=== PATIENT | female | born 2000 | race Caucasian/White ===

== ENCOUNTER 2018-09-19 08:47 | Outpatient (RCR) | payer OTHER, SELFPAY ==
--- NOTE | 2018-09-20 08:17 | HP.OTEVAL ---
Patient's Visit Information MADHURI GUZMAN is a 17 year old F, referred to Occupational Therapy by Shan Ambrocio, with a diagnosis of TOS. Date of Evaluation: 09/19/18 Occupational Therapist: Cynthia Coyne, GERSON/Natalie, CHT - Subjective Subjective: This 17 year old female was seen for intial OT eval for compression garments- Pt states with increase in [employer]c training for her track and field she is getting swelling/tingling in her right UE and numbness at times in her hand. pt did have a compression sleeve in the past but it currently does not fit. Pt return to college on Monday and would like to know what she can do at this time to get a compression garment for UE/LE. - Lymphedema (Circumferential Measure) MCP: right 20.5cm left 18.5cm Wrist: right 16.5cm left 15cm Lower forearm: right 23.5cm left 22.5cm Largest forearm: right 30cm left 27.5cm Elbow: right 28cm left 26cm Largest humerus: right 32.5cm left 29.5cm Axcillary: right 36cm left 35cm Lower calf: right 24cm left 21.5cm Largest calf: right 35cm left 29cm Below knee: right 36cm left 33cm Above knee: right 50cm left 49cm Mid-thigh: right 59cm left 57cm Groin: right 67cm left 66cm - Quick DASH-Disab of Arm,Shoulder& Hand Quick DASH Score: 6.6650 - Goals Select approp compression garment w/donning/care/wear by d/c: Yes Voice need to replace compression garment every 4-6mo by dc: Yes - Rehabilitation General Assessment: pt demo with swelling/tingling on right UE/LE since she started her traning for track and field. pt would benefit from custom compression garments but due to limited time pt advised in off the shelf compression sleeve and glove 20-30mmHg. Pt would benefit from custom compression knee length compression shorts as this is not offered as a pre made compression garment. Rehabilitation Potential: Good - Anticipated Interventions Anticipated Interventions: Education re Diagnosis, Education re Skin Care and Precautions, Education re Correct Donning Tech,Care&Wearing Sched Comp Garments - Visit Plan Frequency: 1x/Week Duration: 1 Week TEXT: Thank you for the opportunity to evaluate your patient. For Medicare and Medicare HMO plans, please review the plan of care and approve it. It will need to be FAXED BACK to us at [phone] for Medicare purposes. Please let me know if there are questions or concerns regarding this plan of care. Physician Signature: Date:
--- NOTE | 2019-01-16 15:49 | HP.OT.NRP ---
HP - Discharge Summary - Patient Information MADHURI GUZMAN was seen in my office for initial evaluation on 09/19/18. The following Plan of Care was established for this patient: Initial Frequency: 1x/Week Initial Duration: 1 Week - Anticipated Interventions Anticipated Interventions: Education re Diagnosis, Education re Skin Care and Precautions, Education re Correct Donning Tech,Care&Wearing Sched Comp Garments This patient was last seen in our office 09/19/18. Pertinent comments regarding their Occupational therapy will appear below: Pt seen for OT eval only. pt was able to get compression garments for school sports. pt had no other concerns and is d/c at this time. At this point I will be discontinuing this patient from occupational therapy. I would be happy to see this patient again in the future if found appropriate by the physician. Thank you! Cynthia Coyne, OTR/L, CHT
== END 2018-09-19 19:00 | disposition home or self-care (01) ==
LOC: OT 08:47
PROVIDERS: Family Provider Pediatrics; PCP Pediatrics; Referring Provider Family Medicine; Visit Provider Family Medicine
DX: G54.0 Brachial plexus disorders (principal)
CPT/HCPCS: 97166

== ENCOUNTER → 2018-11-30 12:17 | Outpatient (CLI) | payer OTHER, MEDICAID, SELFPAY ==
--- NOTE | 2018-11-30 12:25 | US_ITS ---
STUDY: RENAL ULTRASOUND - COMPLETE REASON FOR EXAM: Female, 17 years old. Neurogenic bladder TECHNIQUE: Ultrasound evaluation of the kidneys was performed with real-time and static petty-scale imaging. COMPARISON: CT dated 12/14/2013. FINDINGS: RIGHT KIDNEY: Normal location of the right kidney, which is normal in size. The right kidney measures 10.8 cm. There is a normal cortex of the right kidney. There is no right renal mass or cyst. There are no right renal calculi. There is no right hydronephrosis. DISTAL RIGHT URETER: There is non-visualization of the distal right ureter. There is no demonstrated right ureterovesical junction calculus. There is a visualized right ureteral jet. LEFT KIDNEY: Normal location of the left kidney, which is normal in size. The left kidney measures 10.5 cm. There is a normal cortex of the left kidney. There is no left renal mass or cyst. There are no left renal calculi. There is no left hydronephrosis. DISTAL LEFT URETER: There is non-visualization of the distal left ureter. There is no demonstrated left ureterovesical junction calculus. There is a visualized left ureteral jet. AORTA: No evidence of abdominal aortic aneurysm. I.V.C.: The IVC is patent. BLADDER: The urinary bladder demonstrates a normal sonographic appearance. There is a prevoid volume of 400 cc and a postvoid volume of 700 cc. US/Kidney and Bladder IMPRESSION: Normal ultrasound of the kidneys and urinary bladder. Electronically Signed: Manjinder Erinn, at 19:58 EDT Tel , Service support ,
== END ==
PROVIDERS: Family Provider Pediatrics; PCP Pediatrics; Referring Provider Urology; Visit Provider Urology
DX: N31.9 Neuromuscular dysfunction of bladder, unspecified (principal)
CPT/HCPCS: 76770

== ENCOUNTER → 2020-02-13 | Outpatient (CLI) | payer OTHER, MEDICAID, SELFPAY ==
[2014-12-06 22:40] VITALS: BMI 22.3
== END | disposition home or self-care (01) ==
LOC: LABSPEC 16:45
PROVIDERS: PCP Pediatrics; Referring Provider Urology; Visit Provider Urology
DX: N39.0 Urinary tract infection, site not specified (principal); R82.998 Other abnormal findings in urine
CPT/HCPCS: 87086; 87088; 87186

== ENCOUNTER 2021-05-26 15:30 | Outpatient (RCR) | payer OTHER, MEDICAID, SELFPAY ==
--- NOTE | 2021-05-25 15:20 | HP.OTEVAL_ITS ---
Patient's Visit Information MADHURI GUZMAN is a 20 year old F, referred to Occupational Therapy by Dr. Graham Whitehead MD, with a diagnosis of Lymphedema. Date of Evaluation: 05/24/21 Occupational Therapist: Cynthia Coyne, KEOR/Natalie, CHT - Subjective This 20 year old female was seen for OT eval with dx of lymphedema and spina bi fida. pt states she has increased issues with swelling of her left arm. pt states she has not used her compression garments for awhile- states she does use her wheelchair more during school- pt states she recently started swimming for exercise. 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 pt states she enjoys swimming and has been going the last 4 days. pt states she has not watched to see if her circulation is better. - Lymphedema (Circumferential Measure) MCP: right 25cm left 18cm Wrist: right 21cm left 18cm Lower forearm: right 27.5cm left 27cm Largest forearm: right 35cm left 31cm Elbow: right 32cm left 29cm Largest humerus: right 31cm left 28c Axcillary: right 37cm left 35cm Upper Exremity Comments: pt demo a increase in right UE measurements from 2019 Above knee: right 44cm left 46cm Mid-thigh: right 53.5cm left 54cm Groin: right 63cm left 62cm Lower Exremity Comments: pt demo a reduction in right LE circumference from apt. in 2019 - Lower Limb Functional Index Lower Extremity Functional Score: 74 - Quick DASH-Disab of Arm,Shoulder& Hand Quick DASH Score: 20.0000 - Goals Demonstrate a 20% reduction in edema by d/c: Yes Demonstrate adequate knowledge of self-massage by 2nd week: Yes Demonstrate adequate knowledge skin care/prec by 2nd week: Yes Demonstrate adequate knowledge therapeutic exercises by d/c: Yes Select approp compression garment w/donning/care/wear by d/c: Yes Voice need to replace compression garment every 4-6mo by dc: Yes - Rehabilitation General Assessment: pt demo a increase in right UE circumference from prior apt in 2019. Pt demo need for skilled OT services 1-2x week for 3 weeks to ed. pt on dx, and life time mtg of swelling. therapist ed. pt on need of using compression garments and paring with exercise and self manual lymph massage. therapist sent order for 20-30 mmHg compression sleeve and compression glove with fingers included. therapist will ed, pt on self manual lymphedema massage and ed need of compression sleeve to assist with circulation. pt demo understanding and agree to POC. Rehabilitation Potential: Good - Anticipated Interventions Education re Diagnosis, Manual Lymph Drainage, Education re Life-long lymphedema Management, Education re Skin Care and Precautions, Education re Self Massage Techniques, Education re Correct Donning Tech,Care&Wearing Sched Comp Garments, Home Program - Visit Plan Frequency: 1-2x /Week Duration: 3 Weeks TEXT: Thank you for the opportunity to evaluate your patient. For Medicare and Medicare HMO plans, please review the plan of care and approve it. It will need to be FAXED BACK to us at [phone] for Medicare purposes. Please let me know if there are questions or concerns regarding this plan of care. Physician Signature: Date:
--- NOTE | 2021-07-22 13:20 | HP.OT.NRP ---
MADHURI GUZMAN was seen in my office for initial evaluation on 05/24/21. The following Plan of Care was established for this patient: Initial Frequency: 1-2x /Week Initial Duration: 3 Weeks Anticipated Interventions: Education re Diagnosis, Manual Lymph Drainage, Education re Life-long lymphedema Management, Education re Skin Care and Precautions, Education re Self Massage Techniques, Education re Correct Donning Tech,Care&Wearing Sched Comp Garments, Home Program This patient was last seen in our office 05/26/21. Pertinent comments regarding their Occupational therapy will appear below: pt seen for OT eval only- no further apts were scheduled- due to time lapse in services pt d/c. At this point I will be discontinuing this patient from occupational therapy. I would be happy to see this patient again in the future if found appropriate by the physician. Thank you! Cynthia Coyne, OTR/L, CHT
== END 2021-05-26 19:00 | disposition home or self-care (01) ==
LOC: OT 15:30
PROVIDERS: PCP Pediatrics; Referring Provider Pediatrics; Visit Provider Pediatrics
DX: Q05.9 Spina bifida, unspecified (principal); I89.0 Lymphedema, not elsewhere classified
CPT/HCPCS: 97166

== ENCOUNTER → 2022-06-20 | Outpatient (CLI) | payer OTHER, MEDICAID, SELFPAY ==
--- NOTE | 2022-06-20 11:46 | US_ITS ---
STUDY: RENAL ULTRASOUND - COMPLETE REASON FOR EXAM: Female, 21 years old. ACUTE CYSTITIS TECHNIQUE: Ultrasound evaluation of the kidneys was performed with real-time and static petty-scale imaging. COMPARISON: Comparison is made with prior study dated 11/30/2018. FINDINGS: RIGHT KIDNEY: Normal location of the right kidney, which is normal in size. The right kidney measures 11.7 cm x 5 cm x 4.4 cm. There is a normal cortex of the right kidney. The renal cortex measures 1.2 cm. There is no right renal mass or cyst. There are no right renal calculi. There is no right hydronephrosis. DISTAL RIGHT URETER: There is non-visualization of the distal right ureter. There is no demonstrated right ureterovesical junction calculus. There is no demonstrated right ureteral jet. LEFT KIDNEY: Normal location of the left kidney, which is normal in size. The left kidney measures 11.1 cm x 5.4 cm x 4.3 cm. There is a normal cortex of the left kidney. The renal cortex measures 1.0 cm. There is no left renal mass or cyst. There are no left renal calculi. There is no left hydronephrosis. DISTAL LEFT URETER: There is non-visualization of the distal left ureter. There is no demonstrated left ureterovesical junction calculus. There is a visualized left ureteral jet. BLADDER: The distended urinary bladder has a volume of 34 ml. There is a normal wall thickness of the distended urinary bladder. There is no demonstrated mass within the urinary bladder. There are no demonstrated bladder calculi. US/Kidney and Bladder IMPRESSION: Normal ultrasound of the kidneys and urinary bladder. Electronically Signed: Malick Irizarry MD at 15:30 EST ,
== END | disposition home or self-care (01) ==
PROVIDERS: PCP Pediatrics; Visit Provider Urology
DX: N30.01 Acute cystitis with hematuria (principal)
CPT/HCPCS: 76770

== ENCOUNTER → 2024-06-17 | Outpatient (CLI) | payer OTHER, SELFPAY ==
[2024-06-17 10:07] LABS: Erythrocyte Sedimentation Rate 8 mm/hr (0-30)
[2024-06-17 11:06] LABS: CRP 3.84 mg/L (0.0-3.0); LDH 207 U/L (84-246)
[2024-06-19 22:07] LABS: Anti-Centromere B Ab <0.2 AI (0.0-0.9); Anti-Chromatin <0.2 AI (0.0-0.9); Anti-Jo <0.2 AI (0.0-0.9); Anti-Scleroderma-70 AB <0.2 AI (0.0-0.9); Anti-dsDNA Ab <1 IU/mL (0-9); Beef <0.10 kU/L (Class 0); Chocolate <0.10 kU/L (Class 0); Codfish <0.10 kU/L (Class 0); Corn <0.10 kU/L (Class 0); Egg, Whole <0.10 kU/L (Class 0); Milk (Cow) <0.10 kU/L (Class 0); Mussels <0.10 kU/L (Class 0); Peanut <0.10 kU/L (Class 0); Pork <0.10 kU/L (Class 0); RNP Ab <0.2 AI (0.0-0.9); SJOGREN'S Anti-SS-A test < 0.2 AI (0.0-0.9); SJOGREN'S Anti-SS-B test < 0.2 AI (0.0-0.9); Salmon <0.10 kU/L (Class 0); Shrimp <0.10 kU/L (Class 0); Smith Ab <0.2 AI (0.0-0.9); Soybean <0.10 kU/L (Class 0); Tuna <0.10 kU/L (Class 0); Wheat <0.10 kU/L (Class 0)
[2024-06-21 12:08] LABS: ACCA 15 units (0-90); ALCA 5 units (0-60); AMCA 16 units (0-100); Albumin 3.3 g/dL (2.9-4.4); Alpha-1-Globulins 0.3 g/dL (0.0-0.4); Alpha-2-Globulins 0.8 g/dL (0.4-1.0); Angiotensin Convert Enzyme 34 U/L (14-82); Cytoplasmic Ab (C-ANCA) <1:20 titer (Neg:<1:20); Endomysial Antibody IgA Negative (Negative); Gamma Globulin 1.1 g/dL (0.4-1.8); IgG, Quant 963 mg/dL (586-1602); Immunoglobulin A 218 mg/dL (87-352); Immunoglobulin E 19 IU/mL (6-495); Immunoglobulin G, Subclass 1 519 mg/dL (248-810); Immunoglobulin G, Subclass 2 266 mg/dL (130-555); Immunoglobulin G, Subclass 3 45 mg/dL (15-102); Immunoglobulin G, Subclass 4 35 mg/dL (2-96); Immunoglobulin M 153 mg/dL (26-217); PROEL- TOTAL PROTEIN 6.6 g/dL (6.0-8.5); Perinuclear Ab (P-ANCA) <1:20 titer (Neg:<1:20); gASCA 36 units (0-50); t-Transglutaminase IgA <2 U/mL (0-3)
== END | disposition home or self-care (01) ==
LOC: LAB 09:09
PROVIDERS: PCP Student in an Organized Health Care Education/Training Program; Referring Provider Internal Medicine Gastroenterology; Visit Provider Internal Medicine Gastroenterology
DX: K91.30 Postprocedural intestinal obstruction, unspecified as to partial versus complete (principal); Y83.3 Surgical operation with formation of external stoma as the cause of abnormal reaction of the patient, or of later complication, without mention of misadventure at the time of the procedure
CPT/HCPCS: 36415; 82164; 82784; 82785; 82787; 83516; 83615; 84165; 85652; 86003; 86005; 86036; 86037; 86140; 86225; 86235; 86255; 86334; 86671

== ENCOUNTER → 2024-06-22 | Outpatient (CLI) | payer OTHER, SELFPAY ==
--- NOTE | 2024-06-22 08:17 | RAD_ITS ---
STUDY: X-RAY - ABDOMEN/PELVIS REASON FOR EXAM: Female, 23 years old. constipation TECHNIQUE: Single AP view of the abdomen / pelvis. COMPARISON: None. FINDINGS: 24 Sitzmarks markers are seen within the periphery of the abdomen likely scattered throughout the colon. There is an unremarkable bowel gas pattern. The visualized liver, spleen and kidneys are grossly normal in size and morphology. Normal soft tissue structures. Normal visualized osseous structures. RAD/Abdomen Single View IMPRESSION: Sitzmarks are scattered throughout the abdomen likely in the colon. Electronically Signed: Armond Escobedo MD at 12:49 EST ,
== END | disposition home or self-care (01) ==
LOC: RAD 08:17
PROVIDERS: PCP Student in an Organized Health Care Education/Training Program; Referring Provider Internal Medicine Gastroenterology; Visit Provider Internal Medicine Gastroenterology
DX: K91.30 Postprocedural intestinal obstruction, unspecified as to partial versus complete (principal); Y83.3 Surgical operation with formation of external stoma as the cause of abnormal reaction of the patient, or of later complication, without mention of misadventure at the time of the procedure
CPT/HCPCS: 74018

== ENCOUNTER → 2024-06-24 | Outpatient (CLI) | payer OTHER, SELFPAY ==
--- NOTE | 2024-06-24 09:25 | RAD_ITS ---
INDICATION: bloating EXAMINATION/TECHNIQUE: X-RAY - XR Abdomen 1 View COMPARISON: 06/22/2024 FINDINGS: BOWEL GAS PATTERN: There is a moderate amount retained stool throughout the colon. There are 24 Sitzmarks markers.. There has been mild progression since prior examination with the majority of the Sitzmarks markers in the distal descending colon and sigmoid colon. No evidence of small bowel obstruction. No abnormal air collections. FREE AIR: Not assessed on a single supine view. ORGANOMEGALY: Not seen. CALCIFICATIONS: No abnormal calcifications observed. LOWER CHEST: No acute pathology. BONES AND SOFT TISSUES: No acute pathology. RAD/Abdomen Single View IMPRESSION: 1. Sitzmarks markers again noted with in the bowel, with likely transit to the distal descending colon and sigmoid colon. There has been no change or decreased number of markers. 2. No rachel bowel obstruction. Electronically Signed: Armond Stubbs MD at 0:03 EST ,
== END | disposition home or self-care (01) ==
LOC: RAD 09:20
PROVIDERS: PCP Student in an Organized Health Care Education/Training Program; Referring Provider Internal Medicine Gastroenterology; Visit Provider Internal Medicine Gastroenterology
DX: K56.699 Other intestinal obstruction unspecified as to partial versus complete obstruction (principal)
CPT/HCPCS: 74018

== ENCOUNTER → 2024-07-22 | Outpatient (CLI) | payer OTHER, SELFPAY ==
--- NOTE | 2024-07-22 11:51 | NM_ITS ---
CLINICAL: 23-year-old female with history of chronic gastrointestinal complaints. SEMI-SOLID PHASE 99m Tc SULFUR COLLOID GASTRIC EMPTYING STUDY COMPARISON: None available FINDINGS: The patient was administered 1.2 mCi of 99m Tc sulfur colloid mixed with oatmeal and consumed per os. Image acquisitions in the anterior-posterior projections were obtained for 60 minutes. There is prompt visualization of the stomach. There is no gastroesophageal reflux identified. First order kinetics are maintained throughout the duration of the acquisitions. The T ? linear fit was extrapolated to be 86.93 minutes, (Normal: 12-56 minutes). NM/Gastric Emptying Study IMPRESSION: 1. ABNORMAL 99m Tc sulfur colloid semi-solid phase (oatmeal) gastric emptying imaging examination. A. There is delayed semi-solid phase gastric emptying compared to normal controls with demonstrated the first order kinetics throughout all components of the examination. (Guillermina et al, J Nucl Med Tech 38: 186, 2010). Electronically Signed: Armond Yang DO at 9:17 EST ,
== END | disposition home or self-care (01) ==
LOC: NM 11:47
PROVIDERS: PCP Student in an Organized Health Care Education/Training Program; Referring Provider Internal Medicine Gastroenterology; Visit Provider Internal Medicine Gastroenterology
DX: K56.609 Unspecified intestinal obstruction, unspecified as to partial versus complete obstruction (principal)
CPT/HCPCS: 78264; A9541

== ENCOUNTER → 2024-07-29 | Outpatient (CLI) | payer OTHER, SELFPAY ==
--- NOTE | 2024-07-29 10:09 | MRI_ITS ---
STUDY: MR ENTEROGRAPHY WITH CONTRAST REASON FOR EXAM: Female, 23 years old. K56.609 - Unspecified intestinal obstruction, unspecified as t... TECHNIQUE: Multipulse sequence MRI performed with IV contrast according to standard MR enterography protocol following administration of oral contrast for maximal bowel distention. Images were obtained from the dome of the diaphragm to the symphysis pubis. 17 CC IV CLARISCAN was administered intravenously. TECHNICAL QUALITY: Image Quality: Satisfactory Small Bowel Distension: Adequate. COMPARISON: CT of abdomen and pelvis dated December 14, 2013 FINDINGS: FINDINGS: Bowel: Bowel wall thickening: Absent. Skip lesions: None. Vascularity: Normal. Enhancement: Normal. Fistula: None. Abscess: None. Other Findings: The visualized lung bases are unremarkable. The visualized portions of the heart are within normal limits. Normal liver. Normal gallbladder and extrahepatic biliary system. Normal spleen. Normal pancreas. Normal bilateral adrenal glands. Normal right kidney. Normal left kidney. Normal visualized stomach. Mild luminal narrowing in the middle and distal one third regions of the ileum and in the distal jejunum, but without beading or skipped lesions or wall thickening is most likely due to extrinsic adhesions or fibrosis from prior inflammation or prior obstruction or surgical intervention. These findings are not radiographically specific for inflammatory bowel disease but could result and symptoms of irritable bowel syndrome. No small bowel obstruction or fistulous connections or abnormal patulous dilatation. Normal remaining small bowel loops. Normal colon. The appendix is visualized and appears normal. Normal abdominal aorta. Normal inferior vena cava. Normal retroperitoneum. Normal urinary bladder. Normal uterus without evidence of a mass or myometrial hypertrophy. Small amount of endometrial fluid and intermediate signal complex fluid that is consistent with menstrual-related hemorrhage. No endometrial mass or cervical abnormality is seen. Normal bilateral ovaries. Dominant left ovarian follicle noted which is of no clinical significance and does not requiring additional imaging There is a small umbilical hernia containing fat. No aggressive process is seen in the osseous structures.. 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 The herniated sac measures 4.56 x 3.22 cm in diameter. MRI/Enterography Abd/Pel IMPRESSION: 1. Mild luminal narrowing in the middle and distal one third regions of the ileum and in the distal jejunum, but without beading or skipped lesions or wall thickening is most likely due to extrinsic adhesions or fibrosis from prior inflammation or prior obstruction or surgical intervention. These findings are not radiographically specific for inflammatory bowel disease but could result and symptoms of irritable bowel syndrome. No small bowel obstruction or fistulous connections or abnormal patulous dilatation. Normal remaining small bowel loops. Electronically Signed: Gigi Wills MD at 9:34 EST ,
[2024-07-29 11:07] VITALS: BP 127/74; PULSE 89; RESP 16; O2SAT 100; BMI 32.5
[2024-07-29] MEDS: Glucagon 1 MG/ML Syringe IV (12:33)
[2024-07-29] MEDS: 0.9% Saline Lock 10 ML Syringe IV (12:34)
[2024-07-29 13:00] VITALS: BP 130/73; PULSE 102; RESP 18; O2SAT 99
== END | disposition home or self-care (01) ==
LOC: MRI 09:59
PROVIDERS: PCP Student in an Organized Health Care Education/Training Program; Referring Provider Internal Medicine Gastroenterology; Visit Provider Internal Medicine Gastroenterology
DX: K56.609 Unspecified intestinal obstruction, unspecified as to partial versus complete obstruction (principal)
CPT/HCPCS: 74183; 96374; A9575; J1610

== ENCOUNTER → 2024-09-02 | Outpatient (CLI) | payer OTHER, SELFPAY ==
--- NOTE | 2024-09-02 07:50 | NM_ITS ---
PROCEDURE: GASTRIC EMPTYING STUDY - 4 HR REASON FOR EXAM: Gastroparesis. TECHNIQUE: The patient ingested a mixture of 1.1 mCi of sulfur colloid and oatmeal. Gastric emptying study was performed up to 4 hours. RADIOPHARMACEUTICAL: 1.1 mCi of technetium sulfur colloid. COMPARISON: None. FINDINGS: At 4 hours thymic Mrs. At 1 hour, 36% of the radiopharmaceutical exited the stomach. NM/Gastric Emptying Study - 4 HR IMPRESSION: Normal gastric emptying study at 4 hours. Reading Location: [id number]
== END | disposition home or self-care (01) ==
LOC: NM 07:48
PROVIDERS: PCP Student in an Organized Health Care Education/Training Program; Referring Provider Internal Medicine Gastroenterology; Visit Provider Internal Medicine Gastroenterology
DX: K31.84 Gastroparesis (principal)
CPT/HCPCS: 78264; A9541

== ENCOUNTER → 2024-10-14 | Outpatient (CLI) | payer OTHER, SELFPAY ==
--- NOTE | 2024-10-14 09:19 | CT_ITS ---
PROCEDURE: ABDOMEN/PELVIS WITH CONTRAST 10/14/2024 REASON FOR EXAM: IV AND THROUGH THE BANDA STOMA PLEASE One-week history of bloody stool. History of a stoma. History of spina bifida. TECHNIQUE: Abdomen and pelvis CT with intravenous contrast. Coronal and Sagittal reconstruction series were provided. PATIENT PREPARATION: Per protocol ORAL CONTRAST TYPE: A mixture of saline and Gastrografin into the stoma. CONTRAST: Isovue-300 VOLUME: 100 mL One or more dose reduction techniques were used (e.g., Automated exposure control, adjustment of the mA and/or kV according to patient size, use of iterative reconstruction technique. RADIATION DOSE SUMMARY: CTDlvol: 14.7 mGy DLP: 940 mGycm COMPARISON: None FINDINGS: Lung bases: Unremarkable Liver: Normal size. No mass. Gallbladder: Unremarkable Spleen: Normal size. Pancreas: Normal size without evidence of mass surrounding inflammation or ductal dilation. Adrenals: Unremarkable Kidneys: Unremarkable Bladder: Unremarkable Reproductive Organs: Normal uterine size and contour. Ovaries are unremarkable. Bowel: Injected contrast is seen in the right hemicolon. A catheter is seen entering the umbilicus with termination into the right hemicolon. Appendix: The appendix is not identified. There is no inflammatory process identified in the right lower quadrant to suggest appendicitis. Lymph nodes: No suspicious lymph node enlargement. Vasculature: The abdominal aorta and IVC are normal. Peritoneum / Retroperitoneum: Unremarkable Bones: Spondylolysis of the pars interarticularis of the L5 vertebrae. CT/Abdomen/Pelvis WITH Contrast IMPRESSION: No acute abnormality is seen. Reading Location: [facility]
--- NOTE | 2024-10-14 11:45 | NURSING ---
Pt's Mendoza Stoma injected with CT contrast. Pt brought all equipment with her for the study. All amounts and methods of injection were discussed by CT staff with Dr. Juárez. Pt tolerated study well.
== END | disposition home or self-care (01) ==
LOC: CT 09:18
PROVIDERS: PCP Student in an Organized Health Care Education/Training Program; Referring Provider Internal Medicine Gastroenterology; Visit Provider Internal Medicine Gastroenterology
DX: R10.9 Unspecified abdominal pain (principal)
CPT/HCPCS: 74177; Q9967

== ENCOUNTER → 2024-12-25 | Outpatient (CLI) | payer OTHER, SELFPAY ==
--- NOTE | 2024-12-25 13:51 | RAD_ITS ---
PROCEDURE: ABDOMEN SINGLE VIEW 12/25/2024 REASON FOR EXAM: CONSTIAPTION, POSSIBLE OBSTRUCTION TECHNIQUE: ABDOMEN SINGLE VIEW COMPARISON: None FINDINGS: No bowel obstruction or ileus. Moderate stool burden which may reflect constipation. No large pneumoperitoneum. No acute soft tissue abnormalities. No acute fracture or dislocations. No radiographic foreign body. RAD/Abdomen Single View IMPRESSION: No bowel obstruction or ileus. Moderate stool burden which may reflect constip ation. Reading Location: [id number]
== END | disposition home or self-care (01) ==
LOC: RAD 13:50
PROVIDERS: PCP Student in an Organized Health Care Education/Training Program; Referring Provider Internal Medicine Gastroenterology; Visit Provider Internal Medicine Gastroenterology
DX: K59.00 Constipation, unspecified (principal)
CPT/HCPCS: 74018

== ENCOUNTER 2025-02-07 02:18 | Emergency (ER) | payer OTHER, SELFPAY ==
[2025-02-07 02:19] VITALS: BP 129/75; PULSE 104; RESP 16; TEMP 36.4; O2SAT 98; BMI 31.8
--- NOTE | 2025-02-07 02:30 | EDS_ITS ---
HPI History of Present Illness Chief Complaint: Abd Pain Narrative Narrative: Patient is a 24-year-old female with a past medical history of spina bifida, Chiari malformation, gastroparesis, constipation scheduled for ileostomy coming up soon secondary to issues with having bowel movements who presents to the emergency department with a chief complaint of abdominal pain. Patient states that for the past few days she notes that she has had abdominal pain in her right upper quadrant specifically after she eats. States that this has been keeping her awake at night she could not take it anymore therefore she came here for further evaluation management. Patient states that 2 years ago she had a HIDA scan and noted that this was normal at that point in time. [facility] Medical History Chiari malformation Spina bifida Home Medications ?Medication ?Instructions ?Recorded ?Last Taken ?Type lactobacillus combination no.4 3 3,000 mmu cells PO QD AY 06/17/24 Unknown History billion cell capsule (Probiotic) naproxen sodium 220 mg tablet 220 mg PO BID PRN pain 1 08/18/23 Unknown History (Aleve) drospirenone 3 mg-ethinyl 1 tab PO DAILY 07/29/24 Unkn own History estradiol 0.02 mg tablet metformin 500 mg tablet 500 mg PO DAILY 07/29/24 Unk nown History amitriptyline 10 mg tablet 10 mg PO QHS #30 tabs 12/03 Unknown Rx Allergy/AdvReac Type Severity Reaction Status Date / Time latex Allergy Other Verified 02/07/25 02:47 Social History Smoking Status: Never smoker ROS ROS ED ROS Narrative Constitutional: Denies any fevers, chills, headaches Cardiovascular: Denies chest pain or palpitations Respiratory: Denies coughing wheezing shortness of breath Abdomen: Complains of abdominal pain as noted above as well as nausea vomiting : Denies any urinary symptoms Neurological: Denies any numbness, weakness, tingling Musculoskeletal: Denies back pain Skin: Denies any rashes or lesions EXAM Physical Exam Narrative Exam Narrative: General: Patient lying in bed rest comfortably did not appear to be in acute distress Head: Atraumatic, normocephalic Eyes: PERRL bilaterally, EOMI bilaterally, no conjunctival injection noted Neck: Soft, supple, trachea midline Cardiovascular: Patient tachycardic with regular rhythm Respiratory: Clear to auscultation bilaterally Abdomen: Patient has positive Morgan sign with tenderness palpation the right upper quadrant no rebound or guarding on exam, bowel sounds present x 4 Extremities: +5/5 strength noted in the bilateral upper extremities, patient states that she is paralyzed from the waist down from her spina bifida Neurological: Patient follow commands as she was at [facility] year is 2024 Skin: Warm, dry, intact no rashes or lesions noted Const Vital Signs: 02/07/25 02:19 Temperature 97.6 F L Temperature Source Oral Pulse Rate 104 H Respiratory Rate 16 Blood Pressure 129/75 H Blood Pressure Mean 93 Pulse Ox 98 Oxygen Delivery Method Room Air MDM MDM MDM Narrative Medical decision making narrative: Patient is a 24-year-old female who presented to the emergency department chief complaint of right upper quadrant abdominal pain. On the differential diagnose includes but not limited to pancreatitis, , cholecystitis, bowel obstruction. Once the workup is obtained reviewed she will be reevaluated. Patient got IV fluids morphine and Zofran. Patient CBC reviewed and showed a white blood count of 12,000, hemoglobin 12.2, platelet count of 427. Patient sodium is 130, potassium normal 3.8, creatinine was 0.57. Patient's AST and ALT were 13 and 9 respectively total bilirubin normal at 0.21. Patient's lipase normal at 37, test negative. Patient CT abdomen pelvis with IV contrast was reviewed and showed no acute abdominal or pelvic findings. On reevaluation of the patient she is feeling better she would like to go home at this point time. Patient was advised to call her surgeon at [facility] and notified them that they were here in the emergency department and have a follow-up appointment with them before her surgery scheduled in 2 weeks. They are advised return with worsening symptoms or concerns. They are agreeable plan all question concerns answered she was discharged home in stable condition. Lab Data Labs: Laboratory Results - last 24 hr 02/07/25 02:29 WBC 12.6 H RBC 4.46 Hgb 12.2 Hct 37.9 MCV 85.0 MCH 27.4 MCHC 32.2 RDW Std Deviation 41.2 RDW Coeff of Jorge Luis 13.4 Plt Count 427 MPV 9.8 Immature Gran % (Auto) 0.500 Neut % (Auto) 60.0 Lymph % (Auto) 30.3 [place] % (Auto) 4.4 Eos % (Auto) 4.1 Baso % (Auto) 0.7 Absolute Neuts (auto) 7.5 Absolute Lymphs (auto) 3.81 Nucleated RBC % 0 Sodium 138 Potassium 3.8 Chloride 104 Carbon Dioxide 22.9 Anion Gap 11 BUN 14 Creatinine 0.57 L Estim Creat Clear Calc 157.11 Est GFR (MDRD) Non-Af 129 BUN/Creatinine Ratio 25.3 H Glucose 130 H Calcium 9.8 Total Bilirubin 0.21 AST 13 ALT 9 Alkaline Phosphatase 72 Total Protein 7.1 Albumin 4.2 Globulin 2.9 Albumin/Globulin Ratio 1.4 Lipase 37 Serum , Qual NEGATIVE Radiography Diagnostic Testing: Clinical Impression(s) from Imaging Studies Abdomen/Pelvis CT 02/07/25 02:30 IMPRESSION: No acute abdominal or pelvic findings. Reading Location: [place] [id number] Discharge Plan Triage Chief Complaint: Abd Pain ED Provider: Alex Rodriguez Dx/Rx/DC Orders Clinical Impression: Abdominal pain, Spina bifida, Chiari malformation Prescriptions: No Action naproxen sodium [Aleve] 220 mg tablet 220 mg PO BID PRN (Reason: pain) Probiotic 3 billion cell capsule 3,000 mmu cells PO QDAY Rx Instructions: administer with a meal metformin 500 mg tablet 500 mg PO DAILY drospirenone-ethinyl estradiol 3-0.02 mg tablet 1 tab PO DAILY amitriptyline 10 mg tablet 10 mg PO QHS Qty: 30 1RF Primary Care Provider: Juan Manuel Antonio Referrals: Juan Manuel Antonio DO [Primary Care Provider] - Activity Restrictions/Additional Instructions: Your CT did not show evidence of an acute gallbladder infection. Your blood work did not show any acute abnormalities. Follow-up with your surgeon as we discussed and return with worsening symptoms or any other concerns. Print Language: Albanian Disposition Disposition: Home, Self Care
--- NOTE | 2025-02-07 02:30 | CT_ITS ---
PROCEDURE: ABDOMEN/PELVIS W IV CONT ONLY 02/07/2025 REASON FOR EXAM: RUQ PAIN TECHNIQUE: ABDOMEN/PELVIS W IV CONT ONLY Coronal and Sagittal reconstruction series were provided. CONTRAST: Isovue 370 VOLUME: 100 mL One or more dose reduction techniques were used (e.g., Automated exposure control, adjustment of the mA and/or kV according to patient size, use of iterative reconstruction technique. RADIATION DOSE SUMMARY: CTDlvol: 30 mGy DLP: 1069 mGycm COMPARISON: 10/14/2024 FINDINGS: Minimal atelectasis. Normal heart size. Tiny liver cyst. Normal gallbladder, pancreas,, adrenal glands, kidneys. No hydronephrosis or ureteral stone. Normal bladder. Normal uterus and ovaries. No retroperitoneal or pelvic adenopathy. No free air. Nondistended bowel. Status post appendectomy. There appears to have been a fistula creation, between the terminal ileum and the umbilicus, possibly using the appendix. This requires clinical correlation. No acute large bowel findings. Mild scoliosis. Lumbosacral junction spina bifida with 4 x [address]/Abdomen/Pelvis W IV Cont ONLY IMPRESSION: No acute abdominal or pelvic findings. Reading Location: [place] [address]
[2025-02-07 02:35] LABS: Hematocrit 37.9 % (37-47); Hemoglobin 12.2 g/dL (12.0-15.0); Immature Granulocytes Count 0.060 X10^3/uL (0.0-0.0); Mean Corp Hgb Conc 32.2 g/dL (32-36); Mean Corpuscular Volume 85.0 fL (81-99); Mean Platelet Vol. 9.8 fl (6.2-12.0); NRBC Flagged by Analyzer 0 % (0-5); Platelet Count 427 K/mm3 (150-450); RBC Distribution Width CV 13.4 % (11.6-14.6); RBC Distribution Width SD 41.2 fl (35.1-43.9); Red Blood Count 4.46 M/mm3 (4.2-5.4); White Blood Count 12.6 K/mm3 (4.4-11.0)
[2025-02-07] MEDS: 0.9% Normal Saline (1000mL) 1,000 ML 999 ML IV (02:43)
[2025-02-07 02:45] LABS: Internal QC Validated? YES +Cl - CLEAR BKGD; Pregnancy, Serum, hCG Quali. NEGATIVE Negative; Record Kit Lot#, Serum Preg. 0000962302
--- OUTSIDE RECORDS SUMMARY | 2025-02-07 02:49 | XMS RPT_ITS | CCD ---
Author Organization [facility]ini[facility] Care Team Providers Care Fryer Operator Name Role Phone SEAN SINGER Unavailable Unavailable SEAN SINGER Unavailable Unavailable GRAHAM WHITEHEAD Unavailable Unavailable SEAN SINGER Unavailable Unavailable SEAN SINGER Unavailable Unavailable GRAHAM WHITEHEAD Unavailable Unavailable Isaac Lara Attending Unavailabl Graham Senior Referring Unavailable Graham Whitehead Primary Care Unavailable Isaac Thurston Unavailable Unavailable Graham Whitehead Unavailable Unavailable Graham Whitehead MD Primary Care Provider Graham Whitehead MD Primary Care Provider Graham Whitehead MD Primary Care Provider Graham Whitehead MD Primary Care Provider Juan Manuel Antonio DO Primary Care Provider Graham Whitehead MD Primary Care Provider Provider Pranav SOMMER Unavailable Unavailable Curtis RN CLINICAL.Caitlin ESCOBEDO Unavailable [facility] RN CLINICAL.Jill ESCOBEDO Unavailable Dr. Colton Juárez DO Attending Provider Dr. Juan Manuel Antonio DO Primary Care Provider [phone] Dr. Juan Manuel Antonio DO Referring Provider Dr. Colton Juárez DO Referring Provider Ever RN CLINICAL.Caitlin ESCOBEDO Unavailable JUAN MANUEL ANTONIO Primary Care Unavailable JUAN MANUEL ANTONIO DO Primary Care Physician Dr. Juan Manuel Antonio DO Primary Care Provider [phone] Dr. Colton Juárez DO Attending Provider Friend DO, Dr. Pak Referring Provider Paco LOPEZ, Dr. Zambrano Referring Provider [phone] OWOC DO, DR BEVERLY Estrada Attending Unavailabl e ANTONIO DO, JUAN MANUEL Primary Care Unavailable Antonio , Dr. Zambrano Primary Care Provider Friend DO, Dr. Pak Attending Provider Friend DO, Dr. Pak Referring Provider Haile RN CLINICAL.SIGNAL INSPECTOR, Velma Barrientos Unavailable Antonio, Juan Manuel Primary Care Unavailable Friend, Colton Attending Unavailable Friend, Colton Referring Unavailable Friend, Colton Attending Unavailable Antonio, Juan Manuel Primary Care Unavailable Friend, Colton Referring Unavailable Friend, Colton Attending Unavailable Antonio, Juan Manuel Primary Care Unavailable Friend, Colton Referring Unavailable Antonio, Juan Manuel Primary Care Unavailable Friend, Colton Referring Unavailable Friend, Colton Attending Unavailable Friend, Colton Referring Unavailable Antonio, Juan Manuel Primary Care Unavailable Friend, Colton Attending Unavailable Friend, Colton Attending Unavailable Antonio, Juan Manuel Primary Care Unavailable Friend, Colton Referring Unavailable Friend, Colton Attending Unavailable Antonio, Juan Manuel Primary Care Unavailable Friend, Colton Referring Unavailable Antonio, Juan Manuel Primary Care Unavailable Antonio, Juan Manuel Referring Unavailable Friend, Colton Attending Unavailable Friend, Colton Attending Unavailable Antonio, Juan Manuel Primary Care Unavailable Antonio, Juan Manuel Referring Unavailable Friend, Colton Attending Unavailable Antonio, Juan Manuel Primary Care Unavailable Antonio, Juan Manuel Referring Unavailable Friend, Colton Attending Unavailable Antonio, Juan Manuel Primary Care Unavailable Friend, Colton Referring Unavailable SELF Referring Unavailable ANTONIO, JUAN MANUEL L Primary Care Unavailable NORA FLOYD Attending Unavailable SELF Referring Unavailable ANTONIO, JUAN MANUEL L Primary Care Unavailable STALIN RODRIGUEZ Attending Unavailab le ANTONIO, JUAN MANUEL L Primary Care Unavailable ANTONIO, JUAN MANUEL L Referring Unavailable ANTONIO, JUAN MANUEL L Primary Care Unavailable SELF Referring Unavailable ANTONIO, JUAN MANUEL L Primary Care Unavailable MYAH ARGUETA Attending Unavailable ANTONIO, JUAN MANUEL L Primary Care Unavailable AIDAN BAINS JR Attending Unavailable ANTONIO, JUAN MANUEL L Primary Care Unavailable AIDAN BAINS JR Attending Unavailable SELF Referring Unavailable ANTONIO, JUAN MANUEL L Primary Care Unavailable ALAN FAIRCHILD Attending Unavailable CHRISTEN GEE Referring Unavailable ANTONIO, JUAN MANUEL L Primary Care Unavailable CHRISTEN GEE Referring Unavailable ANTONIO, JUAN MANUEL L Primary Care Unavailable ANTONIO, JUAN MANUEL L Primary Care Unavailable AIDAN BAINS JR Attending Unavailable SELF Referring Unavailable ANTONIO, JUAN MANUEL L Primary Care Unavailable TERA OLIVIER Attending Unavailable ANTONIO, JUAN MANUEL L Primary Care Unavailable CHRISTEN GEE Referring Unavailable ANTONIO, JUAN MANUEL L Primary Care Unavailable ANTONIO, JUAN MANUEL L Attending Unavailable ANTONIO, JUAN MANUEL L Primary Care Unavailable ANTONIO, JUAN MANUEL L Referring Unavailable ANTONIO, JUAN MANUEL L Primary Care Unavailable ANTONIO, JUAN MANUEL L Primary Care Unavailable CAITLIN CURTIS Referring Unavailabl e ANTONIO, JUAN MANUEL L Primary Care Unavailable ANTONIO, JUAN MANUEL L Primary Care Unavailable ANTONIO, JUAN MANUEL L Primary Care Unavailable CAITLIN CURTIS Attending Unavailabl e ANTONIO, JUAN MANUEL L Primary Care Unavailable EARLINE TAY Referring Unavailable ANTONIO, JUAN MANUEL L Primary Care Unavailable ANTONIO, JUAN MANUEL L Primary Care Unavailable ARMIDA ALAS Attending Unavailable ANTONIO, JUAN MANUEL L Primary Care Unavailable LUIS ENRIQUE CROSS Attending Unavailable ANTONIO, JUAN MANUEL L Primary Care Unavailable ARMIDA ALAS Attending Unavailable ANTONIO, JUAN MANUEL L Primary Care Unavailable CAITLIN CURTIS Attending Unavailabl e ANTONIO, JUAN MANUEL Natalie Primary Care Unavailable ALECIA GALLEGOS Attending Unavailable ANTONIO, JUAN MANUEL L Primary Care Unavailable ANTONIO, JUAN MANUEL L Primary Care Unavailable CAITLIN CURTIS Referring Unavailabl e CAITLIN CURTIS Attending Unavailabl e ANTONIO, JUAN MANUEL Natalie Primary Care Unavailable CAITLIN CURTIS Attending Unavailabl e ANTONIO, JUAN MANUEL L Primary Care Unavailable ANTONIO, JUAN MANUEL L Attending Unavailable ANTONIO, JUAN MANUEL L Primary Care Unavailable ANTONIO, JUAN MANUEL L Referring Unavailable ANTONIO, JUAN MANUEL L Primary Care Unavailable ANTONIO, JUAN MANUEL L Referring Unavailable ANTONIO, JUAN MANUEL L Primary Care Unavailable ANTONIO, JUAN MANUEL L Primary Care Unavailable CAITLIN CURTIS Attending Unavailabl e ANTONIO, JUAN MANUEL L Primary Care Unavailable ALECIA GALLEGOS Referring Unavailable JUAN MANUEL ANTONIO Primary Care Unavailable CHRISTEN GEE Attending Unavailable JUAN MANUEL ANTONIO Primary Care Unavailable Allergies Allergy Classification Reported Allergen(s) Allergy Type Date of Onset Reaction(s) Facility Banana Extract (3 sources) Banana Extract Drug Allergy 1 Unknown [facility] Latex (3 sources) Latex Substance Allergy 3 Unknown [facility] (20 sources) Latex; Translations: [LATEX] Propensity to adverse reactions to drug (disorder) 3 Unknown [facility] [place] Repository (20 sources) Banana Extract; Translations: [BANANA] Drug Allergy 1 Unknown [facility] Medications Current Medications Medication Drug Class(es) Dates Sig (Normalized) Sig (Original) acetaminophen 325 mg / HYDROcodone bitartrate 5 mg oral tablet (1 source) Opioid Agonist Start: 10-09-2024 End: 10-11-2024 take 1 tablet by mouth every six hours as needed for pain [place] 325- 5 mg oral tablet Dose = 1 tab(s), Oral, q6h, PRN for pain, X 2 day(s), # 5 tab(s), 0 Refill(s), Abdominal pain, 81.8 Start Date: 10/09/24 Stop Date: 10/11/24 Status: Ordered Quantity: 5.0 Unit: tab(s) Repeat number: 1 Indications: Unspecified abdominal pain; amitriptyline hydrochloride 10 mg oral tablet (20 sources) Tricyclic Antidepressant Start: 10-08-2024 End: 12-03-2024 take 1 tablet by mouth once daily at bedtime amitriptyline (ELAVIL) 10 mg tablet Take 10 mg by mouth daily at bedtime. 10/08/2024 Active amoxicillin 875 mg / clavulanate 125 mg oral tablet (6 sources) Penicillin-class Antibacterial Start: 06-19-2024 End: 06-29-2024 take 1 tablet by mouth twice daily amoxicillin-clavul anate potassium (AUGMENTIN) 875-125 mg per tablet Take 1 tablet by mouth two times a day for 10 days. 20 tablet 06/19/2024 06/29/2024 Active Start: 06-17-2024 End: 06-27-2024 take 10 mL by mouth twice daily amoxicillin-clavulanic acid (AUGMENTIN) 250-62.5 mg/5 mL suspension Indications: Subacute cough , SOB (shortness of breath) , Pleuritic pain Take 10 mL by mouth two times a day for 10 days. 200 mL 06/17/2024 06/19/2024 Discontinued Start: 06-27-2022 End: 07-04-2022 take 1 tablet by mouth twice daily amoxicillin-clavulanic acid (AUGMENTIN) 875-125 mg per tablet Indications: Acute otitis media, left Take 1 tablet by mouth twice daily for 7 days. 14 tablet 0 06/27/2022 07/04/2022 Active Comment on above: Take 1 tablet by sushant th twice daily for 7 days. ascorbic acid 500 mg oral capsule (20 sources) Vitamin C Start: 06-17-2024 Ascorbic Acid (Vitamin C) 500 mg capsule Active mg PO June 17, 2024 1:00am take 1 tablet by mouth once victor manuel y Ascorbic Acid 1,000 mg tablet Take 1 tablet by mouth once daily. Active B.animalis,bifid,infantis,lo ng (PROBIOTIC 4X ORAL) (20 sources) take 1 capsule by mouth once daily B.animalis,bifid,infantis,long (PROBIOTIC 4X ORAL) Take 1 capsule by mouth once daily. Active take 1 capsule by mo uth once daily B.animalis,bifid,infantis,long (PROBIOTI C 4X ORAL) Take 1 capsule by mouth once daily. 0 Suspended take 1 capsule by mo uth once daily B.animalis,bifid,infantis,long (PROBIOTI C 4X ORAL) Take 1 capsule by mouth once daily. 0 Active Catheter (FEMALE CATHETER) 14 Fr misc (20 sources) Start: 12-19-2023 Catheter (FEMALE CATHETER) 14 Fr misc Indications: Spina bifida of lumbar region without hydrocephalus (HCC) , Cauda equina syndrome with neurogenic bladder (HCC) , Chiari malformation type I (HCC) , S/P brain surgery , Neurogenic bladder 14 [place], 16 inch female straight tip intermittent catheter, to use q6 hrs prn urinary retention 100 Each 1 12/19/2023 Active cefdinir 300 mg oral capsule (1 source) Cephalosporin Antibacterial Start: 06-30-2024 End: 07-07-2024 take 1 capsule by mouth twice daily cefdinir (OMNICEF) 300 mg capsule Indications: Acute otitis media, right Take 1 capsule by mouth two times a day for 7 days. 14 capsule 06/30/2024 07/07/2024 Active cephalexin 500 mg oral capsule (20 sources) Cephalosporin Antibacterial Start: 09-27-2024 End: 10-04-2024 take 1 capsule by mouth four times daily cephALEXin (KEFLEX) 500 mg capsule Indications: Recurrent UTI (urinary tract infection) Take 1 capsule by mouth four times daily for 7 days. 28 capsule 09/27/2024 10/02/2024 Discontinued Start: 08-21-2024 End: 08-31-2024 take 1 capsule by mouth four times daily cephALEXin (KEFLEX) 500 mg capsule Indications: Cellulitis of toe of left foot Take 1 capsule by mouth four times daily for 10 days. 40 capsule 08/21/2024 08/31/2024 Active Start: 07-29-2024 End: 08-08-2024 take 1 capsule by mouth four times daily cephALEXin (KEFLEX) 500 mg capsule Indications: Cellulitis of toe of left foot Take 1 capsule by mouth four times daily for 10 days. 40 capsule 07/29/2024 08/08/2024 Active Start: 07-29-2024 End: 09-16-2024 take 1 capsule by mouth twice daily Cephalexin 500 mg capsule Discontinued 500 mg PO TWICE A DAY July 29, 2024 1:00am September 16, 2024 8:35am Start: 12-07-2023 End: 12-14-2023 take 1 capsule by mouth twice daily cephALEXin (KEFLEX) 500 mg capsule Take 1 capsule by mouth two times a day for 7 days. 14 capsule 0 12/07/2023 12/14/2023 Active Start: 06-19-2018 End: 02-06-2025 take 1 capsule by mouth three times daily cephALEXin (KEFLEX) 500 mg capsule Indications: Urinary frequency Take 1 capsule by mouth three times a day for 7 days. 21 capsule 01/30/2025 02/06/2025 Active Start: 06-19-2018 take 1 capsule by mo ut twice daily Cephalexin 500 MG Oral Capsule Take 1 capsule twice daily Quantity: 14 Refills: 5 Isaac Thurston MD Start : 19-Jun-2018 Active cetirizine hydrochloride 10 mg oral tablet (1 source) Histamine-1 Receptor Antagonist Start: 12-28-2024 End: 01-11-2025 take 1 tablet by mouth once daily cetirizine (ZYRTEC) 10 mg tablet Indications: Rash Take 1 tablet by mouth once daily for 14 days. 14 tablet 12/28/2024 01/11/2025 Active codeine phosphate 2 mg/ml / guaiFENesin 20 mg/ml oral solution (4 sources) Opioid Agonist Start: 06-17-2024 End: 06-25-2024 take 5 mL by mouth three times daily as needed codeine-guaiFENesi n (GUAIFENESIN AC) 10-100 mg/5 mL syrup Indications: Subacute cough , SOB (shortness of breath) , Pleuritic pain Take 5 mL by mouth three times a day as needed for up to 8 days. 118 mL 06/17/2024 06/25/2024 Active docusate sodium 50 mg / sennosides, penitentiary 8.6 mg oral tablet (17 sources) Start: 12-19-2023 End: 01-26-2024 take 1-2 tablets by mouth twice daily senna-docusate (SENNA-S) 8.6-50 mg per tablet Take 1-2 tablets by mouth two times a day. 26 tablet 0 12/19/2023 01/26/2024 Discontinued doxycycline hyclate 100 mg oral tablet (5 sources) Tetracycline-class Drug Start: 05-29-2024 End: 06-05-2024 take 1 tablet by mouth twice daily doxycycline (VIBRA-TABS) 100 mg tablet Indications: Lower resp. tract infection Take 1 tablet by mouth two times a day for 5 days. 10 tablet 05/31/2024 06/05/2024 Active Drospirenone-Ethinyl Estradiol (20 sources) Progestin, Estrogen Start: 07-29-2024 Drospirenone-Ethin yl Estradiol 3-0.02 mg tablet Active 1 {tbl} PO DAILY July 29, 2024 1:00am Start: 07-15-2024 take 1 tablet by sushant th once daily Drospirenone-Ethinyl Estradiol (PHILIP, 28,) 3-0.02 mg per tablet Indications: Dysmenorrhea Take 1 tablet by mouth once daily. Ok to skip placebo week and start on new pack of pills 112 tablet 3 07/15/2024 Active Inhalational Spacing Device (1 source) Start: 05-29-2024 End: 05-29-2024 Inhalational Spacing Device 1 Device one time only for 1 dose. 1 Each 05/29/2024 05/29/2024 Active iv contrast (will be provided with radiology test) (3 sources) Start: 06-17-2024 End: 06-18-2024 iv contrast (will be provided with radiology test) Indications: Subacute cough , SOB (shortness of breath) , Pleuritic pain CT Chest W -Inject, intravenously, once for 1 dose.No IV access, insert saline lock prior to the beginning of sedation, infusion, injection of imaging exam. Discontinue saline lock post exam. If Pt. has a central line or IVAD, may access for administration according to line specific nursing protocol. Once exam is complete flush line and de-access according to line specific nursing protocol in the CT contrast administration guidelines link. 1 Each 06/17/2024 06/18/2024 Active Lactobacillus Combination No.4 (Probiotic) 3 billion cell capsule (4 sources) Start: 06-17-2024 take 3 capsules by mouth once daily Lactobacillus Combination No.4 (Probiotic) 3 billion cell capsule Active 3000 NMA PO daily June 17, 2024 1:00am administer with a meal metFORMIN hydrochloride 500 mg oral tablet (20 sources) Biguanide Start: 07-15-2024 take 33-33.9 tablets by mouth once daily metFORMIN (GLUCOPHAGE) 500 mg tablet Indications: Class 1 obesity with body mass index (BMI) of 33.0 to 33.9 in adult, unspecified obesity type, unspecified whether serious comorbidity present Take 1 tablet by mouth daily with dinner. 90 tablet 1 07/15/2024 Active methenamine hippurate 1000 mg oral tablet (20 sources) Start: 10-21-2024 take 1 tablet by mouth twice daily Methenamine Hippurate (HIPREX) 1 gram tablet Take 1 tablet by mouth two times a day. 60 tablet 5 10/21/2024 Active methocarbamol 750 mg oral tablet (17 sources) Muscle Relaxant Start: 12-19-2023 End: 01-26-2024 take 1 tablet by mouth every eight hours as needed methocarbamol (ROBAXIN) 750 mg tablet Take 1 tablet by mouth every 8 hours as needed for muscle spasms 60 tablet 0 12/19/2023 01/26/2024 Discontinued methylPREDNISolone (5 sources) Corticosteroid Start: 12-28-2024 End: 01-03-2025 methylPREDNISolone (MEDROL, GITA,) 4 mg Dose-Pack Take as instructed per package. 21 tablet 12/28/2024 01/03/2025 Active Start: 06-17-2024 End: 06-23-2024 methylPREDNISolone (MEDROL, GITA,) 4 mg Dose-Pack Indications: Subacute cough , SOB (shortness of breath) , Pleuritic pain Follow dosing instructions, take with food. 21 tablet 06/17/2024 06/23/2024 Active mupirocin 0.02 mg/mg topical ointment (5 sources) RNA Synthetase Inhibitor Antibacterial Start: 12-10-2023 End: 12-15-2023 mupirocin (BACTROBAN) 2 % ointment Indications: Carrier of methicillin resistant Staphylococcus aureus Apply to affected area three times a day for 5 days. Starting 5 days prior to surgery, apply 1/2 inch ointment with a cotton swab (Q-tip) in each nostril twice daily for five(5) days. Patient should start on December 10, 2023. 1 g 0 12/10/2023 12/15/2023 Active naproxen sodium 220 mg oral tablet (5 sources) Nonsteroidal Anti-inflammatory Drug Start: 06-17-2024 take 1 tablet by mouth twice daily as needed Naproxen Sodium (Aleve) 220 mg tablet Active 220 mg PO TWICE A DAY as needed June 17, 2024 1:00am End: 04-26-2021 take 1 tablet by mouth twice daily at mealtime naproxen sodium (ALEVE) 220 mg tablet Take 220 mg by mouth twice daily with meals. 04/26/2021 Discontinued nitrofurantoin, macrocrystals 25 mg / nitrofurantoin, monohydrate 75 mg oral capsule (20 sources) Nitrofuran Antibacterial Start: 11-28-2024 End: 12-05-2024 take 1 capsule by mouth twice daily nitrofurantoin monohydrate and macrocrystal (MACROBID) 100 mg capsule Indications: Suspected UTI Take 1 capsule by mouth two times a day for 7 days. 14 capsule 11/28/2024 12/05/2024 Active Start: 10-15-2024 End: 10-15-2024 take 1 capsule by mouth twice daily nitrofurantoin monohydrate and macrocrystal (MACROBID) 100 mg capsule Take 1 capsule by mouth two times a day for 7 days. 14 capsule 10/15/2024 10/15/2024 Discontinued Start: 10-02-2024 End: 10-09-2024 take 1 capsule by mouth twice daily nitrofurantoin monohydrate and macrocrystal (MACROBID) 100 mg capsule Indications: Recurrent UTI (urinary tract infection) Take 1 capsule by mouth two times a day for 7 days. 14 capsule 10/02/2024 10/09/2024 Active Start: 09-10-2024 End: 09-15-2024 take 1 capsule by mouth twice daily nitrofurantoin monohydrate and macrocrystal (MACROBID) 100 mg capsule Indications: Recurrent UTI (urinary tract infection) , Urinary problem Take 1 capsule by mouth two times a day for 5 days. 10 capsule 09/10/2024 09/15/2024 Active Start: 08-16-2024 End: 08-23-2024 take 1 capsule by mouth twice daily nitrofurantoin monohydrate and macrocrystal (MACROBID) 100 mg capsule Indications: Recurrent UTI (urinary tract infection) Take 1 capsule by mouth two times a day for 7 days. 14 capsule 08/16/2024 08/23/2024 Active Start: 07-10-2024 End: 07-15-2024 take 1 capsule by mouth twice daily nitrofurantoin monohydrate and macrocrystal (MACROBID) 100 mg capsule Indications: Acute cystitis without hematuria Take 1 capsule by mouth two times a day for 5 days. 10 capsule 07/10/2024 07/15/2024 Start: 04-26-2024 End: 05-03-2024 take 1 capsule by mouth twice daily nitrofurantoin monohydrate and macrocrystal (MACROBID) 100 mg capsule Take 1 capsule by mouth two times a day for 7 days. 14 capsule 04/26/2024 05/03/2024 Active End: 10-08-2021 take 1 capsule by mouth twice daily nitrofurantoin monohydrate and macrocrystal (MACROBID) 100 mg capsule Take 100 mg by mouth twice daily. 10/08/2021 Discontinued Comment on above: Take 100 mg by mouth twice daily. ondansetron 4 mg oral tablet (16 sources) Serotonin-3 Receptor Antagonist Start: 10-09-2024 End: 10-12-2024 Zofran 4 mg oral tablet Dose : 4 mg = 1 tab(s), Oral, q6h, PRN Nausea/Vomiting, X 3 day(s), # 12 tab(s), 0 Refill(s), 10/12/24 7:28:00 AM EDT Start Date: 10/09/24 Stop Date: 10/12/24 Status: Ordered Quantity: 12.0 Unit: tab(s) Repeat number: 1 Start: 2023 End: 01-30-2024 take 1 tablet by mouth every eight hours as needed ondansetron (ZOFRAN) 4 mg tablet Take 1 tablet by mouth every 8 hours as needed for nausea/vomiting. 60 tablet 1 2023 01/26/2024 Discontinued oxyCODONE hydrochloride 5 mg oral tablet (4 sources) Opioid Agonist Start: 12-19-2023 End: 12-26-2023 take 1 tablet by mouth every six hours as needed oxyCODONE IR (ROXICODONE) 5 mg immediate release tablet Indications: Postoperative pain Take 1-2 tablets by mouth every 6 hours as needed for pain for up to 7 days. 56 tablet 0 12/19/2023 12/26/2023 Active phenazopyridine hydrochloride 200 mg oral tablet (7 sources) Start: 09-27-2024 End: 09-30-2024 take 1 tablet by mouth three times daily as needed for pain phenazopyridine (PYRIDIUM) 200 mg tablet Indications: Recurrent UTI (urinary tract infection) , Urinary problem Take 1 tablet by mouth three times a day as needed for pain for up to 3 days. 9 tablet 09/27/2024 09/30/2024 Active Start: 09-10-2024 End: 09-12-2024 take 1 tablet by mouth three times daily as needed phenazopyridine (PYRIDIUM) 200 mg tablet Indications: Recurrent UTI (urinary tract infection) , Urinary problem Take 1 tablet by mouth three times a day as needed for up to 2 days. 6 tablet 09/10/2024 09/12/2024 Active Start: 07-10-2024 End: 07-13-2024 take 1 tablet by mouth three times daily as needed for pain phenazopyridine (PYRIDIUM) 200 mg tablet Indications: Acute cystitis without hematuria Take 1 tablet by mouth three times a day as needed for pain for up to 3 days. 9 tablet 07/10/2024 07/13/2024 Active Start: 04-26-2024 End: 05-29-2024 take 1 tablet by mouth every eight hours as needed phenazopyridine (PYRIDIUM) 200 mg tablet Take 1 tablet by mouth three times a day as needed. 6 tablet 04/26/2024 05/29/2024 Discontinued (Course of therapy completed) plecanatide 3 mg oral tablet (2 sources) Start: 10-22-2024 Plecanatide (Trulance) 3 mg tablet Active 3 mg PO .COMPLEX 53 2 October 22, 2024 12:00am Take 1 tab once daily for 7 days and then twice daily polyethylene glycol [id number] [id number] mg / potassium chloride 2970 mg / sodium bicarbonate 6740 mg / sodium chloride 5860 mg / sodium sulfate 37794 mg powder for oral solution (1 source) Osmotic Laxative Start: 12-25-2024 Peg 3350-Electrolyte s (Golytely) 236-22.74-6.74 -5.86 gram recon soln Active 240 mL PO As Directed 4000 0 December 25, 2024 12:00am until fecal effluent is clear predniSONE 10 mg oral tablet (2 sources) Start: 05-31-2024 End: 06-09-2024 predniSONE (DELTASONE) 10 mg tablet Indications: Lower resp. tract infection Take 4 tabs daily for 3 days, then 2 tabs daily for 3 days, then 1 tab daily for 3 days with food. 21 tablet 05/31/2024 06/09/2024 Active sulfamethoxazole 800 mg / trimethoprim 160 mg oral tablet (8 sources) Dihydrofolate Reductase Inhibitor Antibacterial, Sulfonamide Antimicrobial Start: 12-28-2024 End: 01-04-2025 take 1 tablet by mouth twice daily sulfamethoxazole -trimethoprim (BACTRIM DS) 800-160 mg per tablet Indications: Rash Take 1 tablet by mouth two times a day for 7 days. 14 tablet 12/28/2024 01/04/2025 Active Start: 07-28-2024 End: 08-07-2024 take 1 tablet by mouth twice daily sulfamethoxazole-trimethoprim (BACTRIM D S) 800-160 mg per tablet Indications: Cellulitis of skin Take 1 tablet by mouth two times a day for 10 days. 20 tablet 07/28/2024 08/07/2024 Active Start: 01-09-2024 End: 01-16-2024 take 1 tablet by mouth twice daily sulfamethoxazole-trimethoprim (BACTRIM D S) 800-160 mg per tablet Take 1 tablet by mouth two times a day for 7 days. 14 tablet 0 01/09/2024 01/16/2024 Active Completed/Discontinued Medications Medication Drug Class(es) Dates Sig (Normalized) Sig (Original) acetaminophen 500 mg oral tablet (20 sources) Start: 12-19-2023 End: 08-16-2024 take 2 tablets enteral route every eight hours as needed acetaminophen (TYLENOL) 500 mg tablet 2 tablets by ORAL/FEEDING TUBE route every 8 hours as needed for pain. 12/19/2023 08/16/2024 Discontinued [id number] actuat albuterol 0.09 mg/actuat metered dose inhaler (20 sources) beta2-Adrenergic Agonist Start: 05-29-2024 End: 07-28-2024 take 2 puff(s) by inhalation every six hours as needed for wheezing albuterol HFA (PROVENTIL HFA, VENTOLIN HFA) 90 mcg/actuation inhaler Inhale 2 Puffs as instructed every 6 hours as needed for wheezing/shortness of breath. 8 g 05/29/2024 07/28/2024 Discontinued (Course of therapy completed) Start: 10-24-2023 albuterol HFA (PROVENTIL HFA, VENTOLIN HFA) 90 mcg/actuation inhaler Inhale 2 Puffs as instructed. 10/24/2023 Active ALPRAZolam 0.25 mg oral tablet (20 sources) Benzodiazepine Start: 10-10-2024 End: 01-30-2025 take 1 tablet by mouth twice daily ALPRAZolam (XANAX) 0.25 mg tablet 0.25 MG ORALLY TWICE A DAY 10/10/2024 01/30/2025 Discontinued benzonatate 100 mg oral capsule (3 sources) Non-narcotic Antitussive Start: 05-31-2024 End: 06-30-2024 take 1 capsule by mouth three times daily as needed for cough benzonatate (TESSALON PERLE) 100 mg capsule Indications: Lower resp. tract infection Take 1 capsule by mouth three times a day as needed for cough. 30 capsule 05/31/2024 06/17/2024 Discontinued ciprofloxacin 500 mg oral tablet (4 sources) Quinolone Antimicrobial Start: 10-15-2024 End: 10-22-2024 take 1 tablet by mouth twice daily ciprofloxacin HCl (CIPRO) 500 mg tablet Take 1 tablet by mouth two times a day for 7 days. 14 tablet 10/15/2024 10/22/2024 DULoxetine 20 mg delayed release oral capsule (3 sources) Serotonin and Norepinephrine Reuptake Inhibitor Start: 09-16-2024 End: 12-02-2024 take 1 capsule by mouth once daily Duloxetine 20 mg capsule,delayed release(DR/EC) Discontinued 20 mg PO daily 30 0 September 16, 2024 12:00am December 02, 2024 7:40am fluconazole 150 mg oral tablet (20 sources) Azole Antifungal Start: 10-07-2024 End: 01-30-2025 fluconazole (DIFLUCAN) 150 mg tablet PLEASE SEE ATTACHED FOR DETAILED DIRECTIONS 10/07/2024 01/30/2025 Discontinued Start: 10-07-2024 End: 10-07-2024 fluconazole (DIFLUCAN) 150 m g tablet Take 1 tablet by mouth one time only for 1 dose. If symptoms still persist after 3 days, go ahead and repeat this x 1 more dose. 2 tablet 10/07/2024 10/07/2024 Active hyoscyamine sulfate 0.125 mg oral tablet (20 sources) Start: 10-10-2024 End: 01-30-2025 hyoscyamine (LEVSIN) 0.125 mg tablet 1 TABLET ORALLY 2 TO 4 TIMES PER DAY NEEDED FOR DYSPEPSIA 10/10/2024 01/30/2025 Discontinued miSOPROStol 0.2 mg oral tablet (7 sources) Prostaglandin E1 Analog Start: 11-16-2021 End: 07-26-2022 miSOPROStol (CYTOTEC) 200 mcg tablet Take two tablets PO night before procedure and two tablets morning of procedure 4 tablet 0 11/16/2021 07/26/2022 Discontinued Comment on above: Take two tablets PO night before procedure and two tablets morning of procedure phentermine hydrochloride 37.5 mg oral tablet (20 sources) Sympathomimetic Amine Anorectic Start: 07-15-2024 End: 01-30-2025 take 1 tablet by mouth once Phentermine HCl 37.5 mg tablet Take 1 tablet by mouth every afternoon. 08/12/2024 01/30/2025 Discontinued polyethylene glycol 3350 66608 mg powder for oral solution (20 sources) Osmotic Laxative Start: 06-29-2020 End: 01-30-2025 polyethylene glycol 3350 (MIRALAX) 17 gram/dose powder One quarter capful added to 800 cc of water and then flushed through the Banda stoma 06/29/2020 01/30/2025 Discontinued Comment on above: One quarter capful a dded to 800 cc of water and then flushed through the Banda stoma Problems Active Problems Problem Classification Problem Date Documented Da te Episodic/Chronic Allergic reactions (2 sources) Urticaria; Translations: [Urticaria, unspecified] Onset: 12-28-2024 12-28-2024 Episodic Contraceptive and procreative management (1 source) Patient encounter status; Translations: [Encounter for initial prescription of intrauterine contraceptive device] Episodic Cystic fibrosis (2 sources) Cystic fibrosis; Translations: [Cystic fibrosis, unspecified] Onset: 12-25-2024 01-23-2025 Chronic Headache; including migraine (1 source) Headache disorder; Translations: [Headache disorder] Onset: 10-03-2024 Episodic Immunizations and screening for infectious disease (1 source) Methicillin resistant staphylococcus aureus carrier; Translations: [Carrier or suspected carrier of Methicillin resistant Staphylococcus aureus] 12-05-2023 Episodic Joint disorders and dislocations; trauma-related (20 sources) Disorder of patellofemoral joint; Translations: [Unspecified internal derangement of unspecified knee] Onset: 10-11-2010 10-11-2010 Chronic Menstrual disorders (20 sources) Dysmenorrhea; Translations: [Dysmenorrhea, unspecified] Onset: 07-16-2024 07-15-2024 Chronic Nausea and vomiting (2 sources) Nausea and vomiting; Translations: [Nausea with vomiting, unspecified] Onset: 10-09-2024 Episodic Nervous system congenital anomalies (20 sources) Spina bifida; Translations: [Spina bifida of lumbar region] Onset: 06-07-2002 10-13-2017 Chronic Other aftercare (1 source) Removal of sutures done; Translations: [Encounter for removal of sutures] 12-29-2023 Episodic Other connective tissue disease (4 sources) Tendinitis; Translations: [Enthesopathy, unspecified] 12-07-2014 Episodic Other diseases of bladder and urethra (20 sources) Neurogenic bladder; Translations: [Neuromuscular dysfunction of bladder, unspecified] Onset: 07-16-2024 12-19-2023 Chronic Other diseases of bladder and urethra (1 source) Neuromuscular dysfunction of bladder, unspecified; Translations: [Neurogenic bladder] Onset: 07-16-2024 Chronic Other diseases of veins and lymphatics (20 sources) Lymphedema; Translations: [Lymphedema, not elsewhere classified] 12-04-2023 Chronic Other disorders of stomach and duodenum (7 sources) Gastroparesis syndrome; Translations: [Gastroparesis] 09-16-2024 Episodic Other disorders of stomach and duodenum (1 source) Gastroparesis; Translations: [Gastroparesis] Onset: 01-23-2025 Episodic Other ear and sense organ disorders (1 source) Otalgia, left ear; Translations: [Otalgia, unspecified] 03-30-2024 Episodic Other female genital disorders (1 source) Abnormal uterine and vaginal bleeding, unspecified; Translations: [Vaginal bleeding] Onset: 08-11-2024 Chronic Other gastrointestinal disorders (20 sources) Neurogenic bowel; Translations: [Neurogenic bowel, not elsewhere classified] Onset: 06-20-2016 12-04-2023 Chronic Other gastrointestinal disorders (1 source) Neurogenic bowel, not elsewhere classified; Translations: [Neurogenic bowel] Onset: 12-15-2023 Chronic Other gastrointestinal disorders (2 sources) Chronic constipation; Translations: [Other constipation] 11-25-2024 Episodic Other gastrointestinal disorders (1 source) Other constipation; Translations: [Chronic constipation] Onset: 11-20-2024 Episodic Other lower respiratory disease (2 sources) Lower respiratory tract infection; Translations: [Unspecified acute lower respiratory infection] 05-29-2024 Episodic Other lower respiratory disease (1 source) Cough; Translations: [Subacute cough] 06-17-2024 Episodic Other lower respiratory disease (1 source) Dyspnea; Translations: [Shortness of breath] 06-17-2024 Episodic Other lower respiratory disease (1 source) Pleuritic pain; Translations: [Pleurodynia] 06-17-2024 Episodic Other nervous system disorders (20 sources) Thoracic outlet syndrome; Translations: [Brachial plexus disorders] Onset: 09-17-2018 09-17-2018 Chronic Other nervous system disorders (20 sources) Chiari malformation type I; Translations: [Compression of brain] Chronic Other nervous system disorders (2 sources) Compression of brain; Translations: [Chiari malformation type I (HCC)] Onset: 12-15-2023 Chronic Other nutritional; endocrine; and metabolic disorders (20 sources) Obesity; Translations: [Obesity, unspecified] 12-04-2023 Chronic Other nutritional; endocrine; and metabolic disorders (20 sources) Obese class I; Translations: [Obesity, unspecified] Onset: 12-15-2023 12-15-2023 Chronic Other nutritional; endocrine; and metabolic disorders (1 source) Body mass index (BMI) 30.0-30.9, adult; Translations: [Class 1 obesity with body mass index (BMI) of 30.0 to 30.9 in adult, unspecified obesity type, unspecified whether serious comorbidity present] Onset: 12-04-2023 Chronic Other screening for suspected conditions (not mental disorders or infectious disease) (1 source) Cancer cervix screening status; Translations: [Encounter for screening for malignant neoplasm of cervix] Episodic Other skin disorders (7 sources) Scar; Translations: [Scar conditions and fibrosis of skin] 09-16-2024 Episodic Other skin disorders (1 source) Eruption; Translations: [Rash and other nonspecific skin eruption] 12-28-2024 Episodic Other skin disorders (1 source) Rash and other nonspecific skin eruption; Translations: [Rash] Onset: 12-28-2024 Episodic Other upper respiratory infections (3 sources) Sore throat symptom; Translations: [Acute pharyngitis, unspecified] Episodic Otitis media and related conditions (1 source) Acute right otitis media; Translations: [Otitis media, unspecified, right ear] 06-30-2024 Episodic Paralysis (20 sources) Cauda equina syndrome with cord bladder; Translations: [Cauda equina syndrome] Onset: 09-19-2006 09-19-2006 Chronic Residual codes; unclassified (1 source) Past history of procedure; Translations: [Other specified health status] 01-09-2024 Episodic Residual codes; unclassified (1 source) Pain; Translations: [Pain, unspecified] 04-15-2021 Episodic Unclassified (1 source) Class 1 obesity with body mass index (BMI) of 30.0 to 30.9 in adult, unspecified obesity type, unspecified whether serious comorbidity present; Translations: [Class 1 obesity with body mass index (BMI) of 30.0 to 30.9 in adult, unspecified obesity type, unspecified whether serious comorbidity present] Onset: 12-04-2023 Viral infection (1 source) COVID-19; Translations: [Acute COVID-19] Onset: 06-12-2024 Past or Other Problems Problem Classification Problem Date Documented Da te Episodic/Chronic Abdominal pain (6 sources) Suprapubic pain; Translations: [Abdominal pain] Onset: 10-09-2024 Episodic Complications of surgical procedures or medical care (1 source) Postprocedural intestinal obstruction, unspecified as to partial versus complete; Translations: [Postprocedural intestinal obstruction, unspecified as to partial versus complete] Onset: 07-25-2024 Episodic Genitourinary symptoms and ill-defined conditions (12 sources) Increased frequency of urination; Translations: [Frequency of micturition] Onset: 07-10-2024 12-07-2023 Episodic Intestinal obstruction without hernia (20 sources) Intestinal obstruction; Translations: [Other specified intestinal obstruction] Onset: 07-25-2024 06-17-2024 Episodic Other aftercare (20 sources) Surgical follow-up; Translations: [Follow-up examination following surgery] Onset: 12-30-2002 Resolved: 11-20-2011 11-20-2011 Episodic Other connective tissue disease (20 sources) Muscle weakness; Translations: [Muscle weakness (generalized)] Onset: 01-25-2007 01-25-2007 Episodic Other connective tissue disease (20 sources) Scapulothoracic bursitis of right shoulder; Translations: [Bursitis of right shoulder] Onset: 01-21-2019 01-21-2019 Episodic Other gastrointestinal disorders (20 sources) Constipation; Translations: [Constipation, unspecified] Onset: 02-18-2014 02-18-2014 Episodic Other gastrointestinal disorders (2 sources) Constipation, unspecified; Translations: [Constipation, unspecified] Onset: 12-15-2023 Episodic Other gastrointestinal disorders (1 source) Other specified symptoms and signs involving the digestive system and abdomen; Translations: [Altered bowel function] Onset: 10-25-2024 Episodic Other lower respiratory disease (1 source) Shortness of breath; Translations: [SOB (shortness of breath)] Onset: 06-12-2024 Episodic Other lower respiratory disease (1 source) Unspecified acute lower respiratory infection; Translations: [Lower resp. tract infection] Onset: 05-31-2024 Episodic Other nervous system disorders (1 source) H/O: migraine; Translations: [History of migraine] Episodic Other nervous system disorders (20 sources) Abnormal gait; Translations: [Unspecified abnormalities of gait and mobility] Onset: 03-03-2015 03-03-2015 Episodic Other nervous system disorders (20 sources) Postoperative pain ; Translations: [Other acute postprocedural pain] Onset: 12-18-2023 12-18-2023 Episodic Other non-traumatic joint disorders (20 sources) Pain in right shoulder; Translations: [Pain in joint, shoulder region] Onset: 01-21-2019 Resolved: 06-29-2020 06-29-2020 Episodic Skin and subcutaneous tissue infections (7 sources) Cellulitis of skin; Translations: [Cellulitis, unspecified] Onset: 07-28-2024 07-28-2024 Episodic Sprains and strains (20 sources) Injury of lower extremity; Translations: [Sprain and strain of unspecified site of knee and leg] Onset: 08-07-2008 Resolved: 11-20-2011 11-20-2011 Episodic Urinary tract infections (20 sources) Urinary tract infectious disease; Translations: [Recurrent urinary tract infection] Onset: 07-10-2024 07-10-2024 Episodic Results Test Name Value Interpretation Reference Range Facility Bacteria Ur Culton 5 Bacteria identified Cx Nom (U) ORGANISM ID: 1 >=100,000 CFU/ml Escherichia coli ORGANISM ID: 1 (ESCHERICHIA COLI) ANTIBIOTIC INTERPRETATION ALVIN STATUS REFERENCE RANGE Ampicillin S <=4 F Susceptible <=8 , Intermediate >8 , Resistant >16 Cefazolin S 2 F Susceptible 0-16 , Intermediate <0 or >16 , Resistant >16 For uncomplicated urinary tract infections, cefazolin results can be used to predict susceptibility or resistance to cephalexin. Ceftriaxone S <=1 F Susceptible <=1 , Intermediate >1 , Resistant >=4 Cefepime S <=1 F Susceptible <=2 , Susceptible-Dose Dependent >2 , Resistant >=16 Ertapenem S <=0.25 F Susceptible <=0.5 , Intermediate >.5 , Resistant >1 Meropenem S <=0.5 F Susceptible <=1 , Intermediate >1 , Resistant >2 Ampicillin/Sulbact S 2 F Piperacillin/Tazobac S <=2 F Gentamicin S <=2 F Susceptible <=2 , Intermediate >2 , Resistant >4 Trimeth sulfameth S <=0.5 F Ciprofloxacin S <=0.25 F Susceptible <0.5 , Intermediate >=.5 , Resistant >=1 Nitrofurantoin S <=16 F Susceptible <=32 , Intermediate >32 , Resistant >64 Abnormal [facility] Comment on above: Performed By: #### 6 30-4 #### [facility] CLIA [id number] [address] [place] [address] [place] Uday 01-30-2025 CNOV Office Visit (U[facility] ) -------- MADHURI PAULSON ([id number]) 2000 F CHT Date Time Provider Department 01/30/25 5:40 PM TERA OLIVIER [facility] During your visit today, we recorded the following information about you: Temperature Pulse Respiration Blood pressure 97.9 degrees 101/minute 18/minute 116/86 Weight Last Period 83 kg 10/03/24 Tera Olivier APRN.SIGNAL INSPECTOR 01/30/2025 6:45 PM Signed [facility] Subjective Madhuri Paulson is a 24 year old female. Patient presents with: Urinary Problem: [5 days] Patient is having frequency, urgency (No feeling below the waist). She feels she can completely void. There is no blood or odor to the urine. Hx of chronic UTI's. HPI Madhuri Paulson is a 24-year-old female presenting with concerns of a possible UTI. Madhuri reports a 2 day onset of suspected UTI. She denies urinary frequency or pain. She has not taken Azo today, though she sometimes uses it. She has a history of latex and banana allergies. Review of Systems Constitutional: Negative for activity change, appetite change, chills, diaphoresis, fatigue and fever. Respiratory: Negative for shortness of breath and wheezing. Cardiovascular: Negative for chest pain and palpitations. Gastrointestinal: Negative for abdominal pain, constipation, diarrhea, nausea and vomiting. Genitourinary: Positive for dysuria, frequency and urgency. Negative for decreased urine volume, difficulty urinating, enuresis, flank pain, genital sores, hematuria, vaginal bleeding, vaginal discharge and vaginal pain. Neurological: Negative for dizziness and headaches. Objective BP 116/86 (BP Site: Right Arm, BP Position: Sitting, BP Cuff Size: Regular Adult) Pulse 101 Temp 36.6 ?C (97.9 ?F) Resp 18 Wt 83 kg (183 lb) LMP 10/03/2024 (Approximate) SpO2 98% BMI 31.41 kg/m? Physical Exam Constitutional: General: She is not in acute distress. Appearance: Normal appearance. She is not toxic-appearing. HENT: Head: Normocephalic and atraumatic. Cardiovascular: Rate and Rhythm: Regular rhythm. Pulmonary: Effort: Pulmonary effort is normal. Breath sounds: Normal breath sounds. Abdominal: General: Bowel sounds are normal. There is no distension. Palpations: Abdomen is soft. Tenderness: There is no abdominal tenderness. There is no right CVA tenderness or left CVA tenderness. Hernia: No hernia is present. Neurological: General: No focal deficit present. Mental Status: She is alert and oriented to person, place, and time. Mental status is at baseline. {ASSESSMENT/PLAN: 1. Urinary frequency - ICD9: 788.41, ICD10: R35.0 acute - Send urine for culture - Patient education for prevention given - URINALYSIS, DIPSTICK ONLY - CEPHALEXIN 500 MG CAPSULE Onset 2 days ago. Urinalysis shows cloudy urine, negative leukocytes, positive nitrates. No dysuria reported due to spinal reflex. No tenderness reported. - Initiated Keflex TID for 7 days. - Advised to abstain from sexual intercourse for 7 days. - Sent urine sample for culture; results expected in 2-3 days. - Nurse will adjust antibiotics if culture shows resistance. - Encouraged increased fluid intake to prevent dehydration. -- Follow up with PCP in 3-5 days , sooner should any other issues arise. - Patient agreeable plan of care verbalized understanding instruction Recording using xPeerient software for draft documentation of the visit was discussed with the patient/authorized goodwill representative; all questions welcomed and answered. Patient/authorized goodwill representative agreed to proceed MAMADOU Hartmann Veronika, APRN.CNP 01/30/2025 6:33 PM Signed - Follow up with PCP in 3-5 days , sooner should any other issues arise. Emergency room if symptoms change or worsen. We discussed your urinary tract infection (UTI): - I prescribed Keflex (antibiotic) to treat your UTI. Take it three times a day for 7 days. This prescription has been sent to your pharmacy. - Avoid sexual activity for 7 days while completing the antibiotic course. - I sent your urine sample for a culture test. It will take 2-3 days to get the results. If the culture shows that the bacteria are resistant to Keflex, the nurse will contact you and switch you to a different antibiotic. - Drink plenty of fluids to stay hydrated. We discussed your allergies: - You are allergic to latex and bananas. Please continue to avoid these. Patient Education for Female Urinary Tract Infections Possible complications: Pyelonehritis Renal abscess Expected course/prognosis: * symptoms resolve within 2-3 days after starting treatment in almost all patients * one-fourth of women with simple UTI experience a second UTI within 6 months, and half at some time during lifetime. * patients with multiple recurrent UTI and no underlying urinary tract ab (more content not included)... Normal [facility] URINALYSIS, DIPSTICK ONLYOrd ered By: Zuleika Guerra on 01-30-2025 Bilirubin Ql (U) Negative Negative [facility] Clarity (Unsp spec) Slightly Cloudy Abnormal Clear [facility] Color (U) Yellow Yellow [facility] Glucose Test strip (U) [Mass/Vol] Negative Negative [facility] Hemoglobin Ql (U) Negative Negative [facility] Interpretation and review of laboratory results Abnormal [facility] Ketones Ql (U) Negative Negative [facility] Leukocyte esterase Test strip Ql (U) Negative Negative [facility] Nitrite Ql (U) Positive Abnormal Negative [facility] pH (U) 6 [pH] 5.0 - 8.0 [facility] Protein (U) [Mass/Vol] Negative Negative [facility] Specific gravity (U) [Rel density] 1.025 1.005 - 1.030 [facility] Urobilinogen Ql (U) Negative Negative [facility] URINALYSIS, DIPSTICK ONLYon 01-30-2025 Bilirubin Ql (U) Negative Normal Negative [facility] Comment on above: Order Comment: Speci men Type: URINE SPECIMENOrdering Facility: [facility] Address: [address] [place] [address] Performed By: #### 6 30-4 #### [facility] CLIA [id number] [address] [place] [address] [place] Clarity (Unsp spec) Slightly Cloudy Abnormal Clear [facility] Comment on above: Order Comment: Speci men Type: URINE SPECIMENOrdering Facility: [facility] Address: [address] [place] [address] Performed By: #### 6 30-4 #### [facility] CLIA [id number] [address] [place] [address] [place] Color (U) Yellow Normal Yellow [facility] Comment on above: Order Comment: Speci men Type: URINE SPECIMENOrdering Facility: [facility] Address: [address] [place] [address] Performed By: #### 6 30-4 #### [facility] CLIA [id number] [address] [place] [address] [place] Glucose Test strip (U) [Mass/Vol] Negative Normal Negative [facility] Comment on above: Order Comment: Speci men Type: URINE SPECIMENOrdering Facility: [facility] Address: [address] [place] [address] Performed By: #### 6 30-4 #### [facility] CLIA [id number] [address] [place] [address] [place] Hemoglobin Ql (U) Negative Normal Negative [facility] Comment on above: Order Comment: Speci men Type: URINE SPECIMENOrdering Facility: [facility] Address: [address] [place] [address] Performed By: #### 6 30-4 #### [facility] CLIA [id number] [address] [place] [address] [place] Ketones Ql (U) Negative Normal Negative [facility] Comment on above: Order Comment: Speci men Type: URINE SPECIMENOrdering Facility: [facility] Address: [address] [place] [address] Performed By: #### 6 30-4 #### [facility] CLIA [id number] [address] [place] [address] [place] Leukocyte esterase Test strip Ql (U) Negative Normal Negative [facility] Comment on above: Order Comment: Speci men Type: URINE SPECIMENOrdering Facility: [facility] Address: [address] [place] [address] Performed By: #### 6 30-4 #### [facility] CLIA [id number] [address] [place] [address] [place] Nitrite Ql (U) Positive Abnormal Negative [facility] Comment on above: Order Comment: Speci men Type: URINE SPECIMENOrdering Facility: [facility] Address: [address] [place] [address] Performed By: #### 6 30-4 #### [facility] CLIA [id number] [address] [place] [address] [place] pH (U) 6.0 [pH] Normal 5.0-8.0 [facility] Comment on above: Order Comment: Speci men Type: URINE SPECIMENOrdering Facility: [facility] Address: [address] [place] [address] Performed By: #### 6 30-4 #### [facility] CLIA [id number] [address] [place] [address] [place] Protein (U) [Mass/Vol] Negative Normal Negative [facility] Comment on above: Order Comment: Speci men Type: URINE SPECIMENOrdering Facility: [facility] Address: [address] [place] [address] Performed By: #### 6 30-4 #### [facility] CLIA [id number] [address] [place] [address] [place] Specific gravity (U) [Rel density] 1.025 Normal 1.005-1.030 [facility] Comment on above: Order Comment: Speci men Type: URINE SPECIMENOrdering Facility: [facility] Address: [address] [place] [address] Performed By: #### 6 30-4 #### [facility] CLIA [id number] [address] [place] [address] [place] Urobilinogen Ql (U) Negative Normal Negative [facility] Comment on above: Order Comment: Speci men Type: URINE SPECIMENOrdering Facility: [facility] Address: [address] [place] [address] Performed By: #### 6 30-4 #### [facility] CLIA [id number] [address] [place] [address] [place] Rufina 01-14-2025 FANNYN Telephone (FAMPWS) -------- MADHURI PAULSON ([id number]) 2000 F CHT Date Time Provider Department 01/14/25 JUAN MANUEL ANTONIO During your visit today, we recorded the following information about you: Diana Boggs RN 01/14/2025 9:28 AM Signed Asha with [employer] calling and requesting recent OV note for patient, to further process wheelchair order received. 10/25/24 OV note faxed as requested. Diana Boggs RN Allergies As of Date: 01/14/2025 Noted Allergy Reaction BANANA 10/05/2010 16 - Unknown Comments: Per diagnosis LATEX 10/18/2002 16 - Unknown Comments: Per diagnosis Date Reviewed: 12/28/2024 Reviewed by: Aidan Bains Jr., RN CLINICAL.SIGNAL INSPECTOR - Fully Assessed Reason for Visit: Patient Request [[id number]] Prescriptions as of 01/14/2025 - cephALEXin (KEFLEX) 500 mg capsule Take 500 mg by mouth three times a day. - ALPRAZolam (XANAX) 0.25 mg tablet 0.25 MG ORALLY TWICE A DAY - amitriptyline (ELAVIL) 10 mg tablet Take 10 mg by mouth daily at bedtime. - fluconazole (DIFLUCAN) 150 mg tablet PLEASE SEE ATTACHED FOR DETAILED DIRECTIONS - hyoscyamine (LEVSIN) 0.125 mg tablet 1 TABLET ORALLY 2 TO 4 TIMES PER DAY NEEDED FOR DYSPEPSIA - Methenamine Hippurate (HIPREX) 1 gram tablet Take 1 tablet by mouth two times a day. - Phentermine HCl 37.5 mg tablet Take 1 tablet by mouth every afternoon. - Drospirenone-Ethinyl Estradiol (PHILIP, 28,) 3-0.02 mg per tablet Take 1 tablet by mouth once daily. Ok to skip placebo week and start on new pack of pills - metFORMIN (GLUCOPHAGE) 500 mg tablet Take 1 tablet by mouth daily with dinner. - Ascorbic Acid 1,000 mg tablet Take 1 tablet by mouth once daily. - albuterol HFA (PROVENTIL HFA, VENTOLIN HFA) 90 mcg/actuation inhaler Inhale 2 Puffs as instructed. - Catheter (FEMALE CATHETER) 14 Fr misc 14 Chilean, 16 inch female straight tip intermittent catheter, to use q6 hrs prn urinary retention - B.animalis,bifid,infanti s,long (PROBIOTIC 4X ORAL) Take 1 capsule by mouth once daily. 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] 10/11/2010 Constipation [K59.00] 02/18/2014 Abnormality of gait [R26.9] 03/03/2015 Thoracic outlet syndrome [G54.0] 09/17/2018 Scapulothoracic bursitis of right shoulder [M75*01/21/2019 Acute pain of right shoulder [M25.511] 01/21/2019 06/29/2020 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] Lymphedema [I89.0] Neurogenic bowel [K59.2] 06/20/2016 Obese [E66.9] Obesity, Class I, BMI 30-34.9 [E66.811] 12/15/2023 S/P brain surgery [Z98.890] 12/15/2023 Postoperative pain [G89.18] 12/18/2023 Routine physical examination [Z00.00] 12/27/2023 Recurrent UTI (urinary tract infection) [N39.0] 07/16/2024 Dysmenorrhea [N94.6] 07/16/2024 Neurogenic bladder [N31.9] 07/16/2024 Encounter Status:Closed by DIANA BOGGS on 01/14/[address] [facility] CNPN Telephone (DANIEL) -------- MADHURI PAULSON ([id number]) 2000 F CHT Date Time Provider Department 01/14/25 ARMIDA ALAS During your visit today, we recorded the following information about you: Alyssa Hewitt RN 01/14/2025 10:13 AM Signed SPECIALTY CARE COORDINATION FOLLOW-UP NOTE Spoke to Madhuri, Explained that I spoke to Dr. Alas about the surgery and she requests to move the surgery date since she would like to do the surgery robotically. She accepted 02/20 new surgery date and 02/19 for her pre op appointment date. Will completed the [facility] paperwork. She thanked me for the phone call. 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 - ALPRAZolam (XANAX) 0.25 mg tablet 0.25 MG ORALLY TWICE A DAY - amitriptyline (ELAVIL) 10 mg tablet Take 10 mg by mouth daily at bedtime. - fluconazole (DIFLUCAN) 150 mg tablet PLEASE SEE ATTACHED FOR DETAILED DIRECTIONS - hyoscyamine (LEVSIN) 0.125 mg tablet 1 TABLET ORALLY 2 TO 4 TIMES PER DAY NEEDED FOR DYSPEPSIA - Methenamine Hippurate (HIPREX) 1 gram tablet Take 1 tablet by mouth two times a day. - Phentermine HCl 37.5 mg tablet Take 1 tablet by mouth every afternoon. - Drospirenone-Ethinyl Estradiol (PHILIP, 28,) 3-0.02 mg per tablet Take 1 tablet by mouth once daily. Ok to skip placebo week and start on new pack of pills - metFORMIN (GLUCOPHAGE) 500 mg tablet Take 1 tablet by mouth daily with dinner. - Ascorbic Acid 1,000 mg tablet Take 1 tablet by mouth once daily. - albuterol HFA (PROVENTIL HFA, VENTOLIN HFA) 90 mcg/actuation inhaler Inhale 2 Puffs as instructed. - Catheter (FEMALE CATHETER) 14 Fr misc 14 [place]an, 16 inch female straight tip intermittent catheter, to use q6 hrs prn urinary retention - B.animalis,bifid,infanti s,long (PROBIOTIC 4X ORAL) Take 1 capsule by mouth once daily. 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] 10/11/2010 Constipation [K59.00] 02/18/2014 Abnormality of gait [R26.9] 03/03/2015 Thoracic outlet syndrome [G54.0] 09/17/2018 Scapulothoracic bursitis of right shoulder [M75*01/21/2019 Acute pain of right shoulder [M25.511] 01/21/2019 06/29/2020 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] Lymphedema [I89.0] Neurogenic bowel [K59.2] 06/20/2016 Obese [E66.9] Obesity, Class I, BMI 30-34.9 [E66.811] 12/15/2023 S/P brain surgery [Z98.890] 12/15/2023 Postoperative pain [G89.18] 12/18/2023 Routine physical examination [Z00.00] 12/27/2023 Recurrent UTI (urinary tract infection) [N39.0] 07/16/2024 Dysmenorrhea [N94.6] 07/16/2024 Neurogenic bladder [N31.9] 07/16/2024 Encounter Status:Closed by ALYSSA HEWITT [facility]14/[facility] [facility] MADHURI PAULSON ([id number]) 2000 F T Date Time Provider Department 01/13/25 ARMIDA ALAS During your visit today, we recorded the following information about you: [facility] Luiz Ward 01/13/2025 11:39 AM Signed Madhuri Paulson [phone], checking the status of [facility] forms. Allergies As of Date: 01/13/2025 Noted Allergy Reaction BANANA 10/05/2010 16 - Unknown Comments: Per diagnosis LATEX 10/18/2002 16 - Unknown Comments: Per diagnosis Date Reviewed: 12/28/2024 Reviewed by: Aidan Bains Jr., RN CLINICAL.SIGNAL INSPECTOR - Fully Assessed Reason for Visit: FMLA Paperwork [418] Prescriptions as of 01/13/2025 - cephALEXin (KEFLEX) 500 mg capsule Take 500 mg by mouth three times a day. - ALPRAZolam (XANAX) 0.25 mg tablet 0.25 MG ORALLY TWICE A DAY - amitriptyline (ELAVIL) 10 mg tablet Take 10 mg by mouth daily at bedtime. - fluconazole (DIFLUCAN) 150 mg tablet PLEASE SEE ATTACHED FOR DETAILED DIRECTIONS - hyoscyamine (LEVSIN) 0.125 mg tablet 1 TABLET ORALLY 2 TO 4 TIMES PER DAY NEEDED FOR DYSPEPSIA - Methenamine Hippurate (HIPREX) 1 gram tablet Take 1 tablet by mouth two times a day. - Phentermine HCl 37.5 mg tablet Take 1 tablet by mouth every afternoon. - Drospirenone-Ethinyl Estradiol (PHILIP, 28,) 3-0.02 mg per tablet Take 1 tablet by mouth once daily. Ok to skip placebo week and start on new pack of pills - metFORMIN (GLUCOPHAGE) 500 mg tablet Take 1 tablet by mouth daily with dinner. - Ascorbic Acid 1,000 mg tablet Take 1 tablet by mouth once daily. - albuterol HFA (PROVENTIL HFA, VENTOLIN HFA) 90 mcg/actuation inhaler Inhale 2 Puffs as instructed. - Catheter (FEMALE CATHETER) 14 Fr misc 14 [place]an, 16 inch female straight tip intermittent catheter, to use q6 hrs prn urinary retention - B.animalis,bifid,infanti s,long (PROBIOTIC 4X ORAL) Take 1 capsule by mouth once daily. 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] 10/11/2010 Constipation [K59.00] 02/18/2014 Abnormality of gait [R26.9] 03/03/2015 Thoracic outlet syndrome [G54.0] 09/17/2018 Scapulothoracic bursitis of right shoulder [M75*01/21/2019 Acute pain of right shoulder [M25.511] 01/21/2019 06/29/2020 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] Lymphedema [I89.0] Neurogenic bowel [K59.2] 06/20/2016 Obese [E66.9] Obesity, Class I, BMI 30-34.9 [E66.811] 12/15/2023 S/P brain surgery [Z98.890] 12/15/2023 Postoperative pain [G89.18] 12/18/2023 Routine physical examination [Z00.00] 12/27/2023 Recurrent UTI (urinary tract infection) [N39.0] 07/16/2024 Dysmenorrhea [N94.6] 07/16/2024 Neurogenic bladder [N31.9] 07/16/2024 Encounter Status:Closed by LUIZ CAMACHO on 01/13/25 [facility]EN[facility] 12-28-2024 CNOV Office Visit (UCMMAS ) -------- MADHURI PAULSON ([id number]) 2000 F T Date Time Provider Department 12/28/24 3:10 PM AIDAN BAINS JR [facility] During your visit today, we recorded the following information about you: Temperature Pulse Respiration Blood pressure 97.8 degrees 93/minute 18/minute 112/75 Weight 78.5 kg Aidan Bains Jr., RN CLINICAL.SIGNAL INSPECTOR 12/28/2024 3:24 PM Signed - Start Bactrim as prescribed to treat both your UTI and skin rash; prescription sent to [facility]. - Begin the Medrol Dosepak (6-day steroid taper: 6, 5, 4, 3, 2, 1); prescription sent to [facility]. - Take Zyrtec daily to help relieve itching; prescription sent to [facility]. - Stop taking cephalexin--you do not need to finish the remaining doses. - If the rash does not improve or worsens, consider seeking further evaluation or a second opinion. Aidan Bains Jr., RN CLINICAL.SIGNAL INSPECTOR 12/28/2024 3:40 PM Signed [facility] Sotelo S Paulson is a 24 year old female. Patient presents with: Rash: Woke up this am, states got bite by flys last week Rash Rash: - Rash on legs began after being bitten by flies last Monday. - Initially presented as small red dots, non-pruritic and non-painful. - Woke up this morning to find the rash had progressed to golf ball-sized, warm, and pruritic lesions. - Rash is localized to the legs, with no involvement of the back, chest, or abdomen. - Currently taking Keflex for a UTI, with one day remaining in the course. - Recently started taking GoLYTELY for severe constipation, as advised by her software systems engineer. - Took Benadryl Allergy a few days ago. Review of Systems Skin: Positive for rash. Gastrointestinal: (+) constipation Skin: (+) lower extremity rash, (+) lower extremity pruritus, (+) localized warmth Neurological: (+) decreased lower extremity sensation Objective BP 112/75 Pulse 93 Temp 36.6 ?C (97.8 ?F) Resp 18 Wt 78.5 kg (173 lb) LMP 10/03/2024 (Approximate) SpO2 99% BMI 29.70 kg/m? Physical Exam General: No acute distress. CV: Heart sounds normal, regular rhythm. Resp: Lungs clear to auscultation. Abd: Bowel sounds normal, no tenderness to palpation. Skin: Multiple macular elevated patches on legs, rough texture, non-blanching, warm to touch. {1. Rash (R21) 2. Urticaria (L50.9) - Rash on lower extremities with hive-like presentation, warm to touch, and pruritic. Lesions are macular, elevated, rough-textured, and non-blanching on palpation. - Differential diagnosis includes urticaria and possible infection. - Discontinued cephalexin; urine culture from [facility] showed E. coli susceptible to Bactrim. - Initiated Bactrim to cover both UTI and potential skin infection. - Prescribed Medrol Dosepak for anti-inflammatory effect. - Added Zyrtec to manage pruritus. - Advised patient to monitor for worsening symptoms and seek a second opinion if no improvement. Recording using xPeerient software for draft documentation of the visit was discussed with the patient/authorized goodwill representative; all questions welcomed and answered. Patient/authorized goodwill representative agreed to proceed Differential Diagnoses - Cellulitis is more likely for the following reason(s): suggested by HANDP - Contact dermatitis is less likely for the following reason(s): HANDP not suggestive Disposition The patient was discharged. Procedures Allergies As of Date: 12/28/2024 Noted Allergy Reaction BANANA 10/05/2010 16 - Unknown Comments: Per diagnosis LATEX 10/18/2002 16 - Unknown Comments: Per diagnosis Date Reviewed: 12/28/2024 Reviewed by: Aidan Bains Jr., RN CLINICAL.SIGNAL INSPECTOR - Fully Assessed Reason for Visit: Rash [1087] Cmt: Woke up this am, states got bite by flys last week Primary Visit Diagnosis:Rash [R21] Other Visit Diagnosis:Urticaria [L50.9] Order(s):methylPREDNISol one (MEDROL, GITA,) 4 mg Dose-PackTake as instructed per package.Disp: 21 tabletRfl: 0 sulfamethoxazole-trimeth oprim (BACTRIM DS) 800-160 mg per tabletTake 1 tablet by mouth two times a day for 7 days.Disp: 14 tabletRfl: 0 cetirizine (ZYRTEC) 10 mg tabletTake 1 tablet by mouth once daily for 14 days.Disp: 14 tabletRfl: 0 Prescriptions as of 12/28/2024 - cephALEXin (KEFLEX) 500 mg capsule Take 500 mg by mouth three times a day. - methylPREDNISolone (MEDROL, GITA,) 4 mg Dose-Pack Take as instructed per package. - sulfamethoxazole-trimeth oprim (BACTRIM DS) 800-160 mg per tablet Take 1 tablet by mouth two times a day for 7 days. - cetirizine (ZYRTEC) 10 mg tablet Take 1 tablet by mouth once daily for 14 days. - ALPRAZolam (XANAX) 0.25 mg tablet 0.25 MG ORALLY TWICE A DAY - amitriptyline (ELAVIL) 10 mg tablet Take 10 mg by mouth daily at bedtime. - fluconazole (DIFLUCAN) 150 mg tablet PLEASE SEE ATTACHED FOR DETAILED DIRECTIONS - hyoscyamine (LEVSIN) 0.125 mg tablet (more content not included)... [facility] Abdomen Single Viewon 2024 Abdomen Single View [facility] [address] [place] [address] Abdomen Single View MR#: [id number] Acct: [id number] Name: MADHURI PAULSON Rep #: [id number] : 2000 F 24 From: Angelia Pressley PCP: Dr. Juan Manuel Antonio DO Status: REG CLI Study: Abdomen Single View Date of Exam: 12/25/24 Exam# [id number] Ordering Dr: Colton Juárez DO PROCEDURE: ABDOMEN SINGLE VIEW 12/25/2024 REASON FOR EXAM: CONSTIAPTION, POSSIBLE OBSTRUCTION TECHNIQUE: ABDOMEN SINGLE VIEW COMPARISON: None FINDINGS: No bowel obstruction or ileus. Moderate stool burden which may reflect constipation. No large pneumoperitoneum. No acute soft tissue abnormalities. No acute fracture or dislocations. No radiographic foreign body. RAD/Abdomen Single View IMPRESSION: No bowel obstruction or ileus. Moderate stool burden which may reflect constipation. Reading Location: [id number] CC: Dr. Juan Manuel Antonio DO; Colton Juárez DO Bilingual Case Manager: Signed [facility] 12-23-2024 CNPN Telephone (DANIEL) -------- MADHURI PAULSON ([id number]) 2000 F CHT Date Time Provider Department 12/23/24 ARMIDA ALAS During your visit today, we recorded the following information about you: Luiz Camacho 12/23/2024 1:04 PM Signed Madhuri Paulson [phone], experiencing constipation for 2 weeks. Allergies As of Date: 12/23/2024 Noted Allergy Reaction BANANA 10/05/2010 16 - Unknown Comments: Per diagnosis LATEX 10/18/2002 16 - Unknown Comments: Per diagnosis Date Reviewed: 10/25/2024 Reviewed by: Alecia Guardado LPN - Fully Assessed Reason for Visit: Constipation [25] Prescriptions as of 12/23/2024 - cephALEXin (KEFLEX) 500 mg capsule Take 1 capsule by mouth three times a day for 7 days. - ALPRAZolam (XANAX) 0.25 mg tablet 0.25 MG ORALLY TWICE A DAY - amitriptyline (ELAVIL) 10 mg tablet Take 10 mg by mouth daily at bedtime. - fluconazole (DIFLUCAN) 150 mg tablet PLEASE SEE ATTACHED FOR DETAILED DIRECTIONS - hyoscyamine (LEVSIN) 0.125 mg tablet 1 TABLET ORALLY 2 TO 4 TIMES PER DAY NEEDED FOR DYSPEPSIA - Methenamine Hippurate (HIPREX) 1 gram tablet Take 1 tablet by mouth two times a day. - Phentermine HCl 37.5 mg tablet Take 1 tablet by mouth every afternoon. - Drospirenone-Ethinyl Estradiol (PHILIP, 28,) 3-0.02 mg per tablet Take 1 tablet by mouth once daily. Ok to skip placebo week and start on new pack of pills - metFORMIN (GLUCOPHAGE) 500 mg tablet Take 1 tablet by mouth daily with dinner. - Ascorbic Acid 1,000 mg tablet Take 1 tablet by mouth once daily. - albuterol HFA (PROVENTIL HFA, VENTOLIN HFA) 90 mcg/actuation inhaler Inhale 2 Puffs as instructed. - Catheter (FEMALE CATHETER) 14 Fr misc 14 [place]an, 16 inch female straight tip intermittent catheter, to use q6 hrs prn urinary retention - B.animalis,bifid,infanti s,long (PROBIOTIC 4X ORAL) Take 1 capsule by mouth once daily. 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] 10/11/2010 Constipation [K59.00] 02/18/2014 Abnormality of gait [R26.9] 03/03/2015 Thoracic outlet syndrome [G54.0] 09/17/2018 Scapulothoracic bursitis of right shoulder [M75*01/21/2019 Acute pain of right shoulder [M25.511] 01/21/2019 06/29/2020 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] Lymphedema [I89.0] Neurogenic bowel [K59.2] 06/20/2016 Obese [E66.9] Obesity, Class I, BMI 30-34.9 [E66.811] 12/15/2023 S/P brain surgery [Z98.890] 12/15/2023 Postoperative pain [G89.18] 12/18/2023 Routine physical examination [Z00.00] 12/27/2023 Recurrent UTI (urinary tract infection) [N39.0] 07/16/2024 Dysmenorrhea [N94.6] 07/16/2024 Neurogenic bladder [N31.9] 07/16/2024 Encounter Status:Closed [facility] 12/23[facility] [facility] Rufina 12-20-2024 JOSEFA Telephone (UROLBE) -------- MADHURI PAULSON ([id number]) 2000 F T Date Time Provider Department 12/20/24 TALI KIM During your visit today, we recorded the following information about you: Tali Kim APRN.SIGNAL INSPECTOR 12/20/2024 3:51 PM Signed ----- Message from Shaun Jacobo sent at 12/20/2024 3:00 PM EDT ----- Regarding: UTI symptoms Contact: Madhuri has some UTI symptoms and dropped off a UC She has frequency and her urine has a strong odor. Requesting an abx before the weekend Please advise and thank you, Tali Hazel APRN.CNP 12/20/2024 3:53 PM Signed Tried calling Madhuri Paulson to confirm preferred pharmacy, but call went straight to voicemail. Left voicemail, advising that I am sending prescription for Keflex to [facility] based on last positive culture from 10/14/2024. Advised of sterilization technician urologist for urgent questions. Tali Kim APRN.Tali Salmon APRN.CNP 12/23/2024 10:21 AM Signed Replied to [employer] message to let Madhuri Paulson know that urine culture confirmed sensitivity to Keflex. Tali Kim APRN.CNP Allergies As of Date: 12/20/2024 Noted Allergy Reaction BANANA 10/05/2010 16 - Unknown Comments: Per diagnosis LATEX 10/18/2002 16 - Unknown Comments: Per diagnosis Date Reviewed: 10/25/2024 Reviewed by: lAecia Guardado LPN - Fully Assessed Primary Visit Diagnosis:Suspected UTI [R39.89] Order(s):cephALEXin (KEFLEX) 500 mg capsuleTake 1 capsule by mouth three times a day for 7 days.Disp: 21 capsuleRfl: 0 Prescriptions as of 12/23/2024 - cephALEXin (KEFLEX) 500 mg capsule Take 1 capsule by mouth three times a day for 7 days. - ALPRAZolam (XANAX) 0.25 mg tablet 0.25 MG ORALLY TWICE A DAY - amitriptyline (ELAVIL) 10 mg tablet Take 10 mg by mouth daily at bedtime. - fluconazole (DIFLUCAN) 150 mg tablet PLEASE SEE ATTACHED FOR DETAILED DIRECTIONS - hyoscyamine (LEVSIN) 0.125 mg tablet 1 TABLET ORALLY 2 TO 4 TIMES PER DAY NEEDED FOR DYSPEPSIA - Methenamine Hippurate (HIPREX) 1 gram tablet Take 1 tablet by mouth two times a day. - Phentermine HCl 37.5 mg tablet Take 1 tablet by mouth every afternoon. - Drospirenone-Ethinyl Estradiol (PHILIP, 28,) 3-0.02 mg per tablet Take 1 tablet by mouth once daily. Ok to skip placebo week and start on new pack of pills - metFORMIN (GLUCOPHAGE) 500 mg tablet Take 1 tablet by mouth daily with dinner. - Ascorbic Acid 1,000 mg tablet Take 1 tablet by mouth once daily. - albuterol HFA (PROVENTIL HFA, VENTOLIN HFA) 90 mcg/actuation inhaler Inhale 2 Puffs as instructed. - Catheter (FEMALE CATHETER) 14 Fr misc 14 Chilean, 16 inch female straight tip intermittent catheter, to use q6 hrs prn urinary retention - B.animalis,bifid,infanti s,long (PROBIOTIC 4X ORAL) Take 1 capsule by mouth once daily. 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] 10/11/2010 Constipation [K59.00] 02/18/2014 Abnormality of gait [R26.9] 03/03/2015 Thoracic outlet syndrome [G54.0] 09/17/2018 Scapulothoracic bursitis of right shoulder [M75*01/21/2019 Acute pain of right shoulder [M25.511] 01/21/2019 06/29/2020 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] Lymphedema [I89.0] Neurogenic bowel [K59.2] 06/20/2016 Obese [E66.9] Obesity, Class I, BMI 30-34.9 [E66.811] 12/15/2023 S/P brain surgery [Z98.890] 12/15/2023 Postoperative pain [G89.18] 12/18/2023 Routine physical examination [Z00.00] 12/27/2023 Recurrent UTI (urinary tract infection) [N39.0] 07/16/2024 Dysmenorrhea [N94.6] 07/16/2024 Neurogenic bladder [N31.9] 07/16/2024 Prescriptions ordered this encounter Disp Refills Start End CEPHALEXIN 500 MG CAPSULE 21 c* 0 12/20/2024 12/27/2024 Route: PO Sig: Take 1 capsule by mouth three times a day for 7 days. Encounter Status:Closed by TALI KIM on 12/23/[address] [facility] Bacteria Ur Culton Bacteria identified Cx Nom (U) ORGANISM ID: 1 >=100,000 CFU/ml Escherichia coli ORGANISM ID: 1 (ESCHERICHIA COLI) ANTIBIOTIC INTERPRETATION ALVIN STATUS REFERENCE RANGE Ampicillin S <=4 F Susceptible <=8 , Intermediate >8 , Resistant >16 Cefazolin S 2 F Susceptible 0-16 , Intermediate <0 or >16 , Resistant >16 For uncomplicated urinary tract infections, cefazolin results can be used to predict susceptibility or resistance to cephalexin. Ceftriaxone S <=1 F Susceptible <=1 , Intermediate >1 , Resistant >=4 Cefepime S <=1 F Susceptible <=2 , Susceptible-Dose Dependent >2 , Resistant >=16 Ertapenem S <=0.25 F Susceptible <=0.5 , Intermediate >.5 , Resistant >1 Meropenem S <=0.5 F Susceptible <=1 , Intermediate >1 , Resistant >2 Ampicillin/Sulbact S 2 F Piperacillin/Tazobac S <=2 F Gentamicin S <=2 F Susceptible <=2 , Intermediate >2 , Resistant >4 Trimeth sulfameth S <=0.5 F Ciprofloxacin S <=0.25 F Susceptible <0.5 , Intermediate >=.5 , Resistant >=1 Nitrofurantoin S <=16 F Susceptible <=32 , Intermediate >32 , Resistant >64 Abnormal [facility] Comment on above: Performed By: #### 6 30-4 #### [facility] CLIA [email or web address] [facility] CNPMelania 12-03-2024 CNPN Telephone (CUPRKiran) -------- MADHURI PAULSON ([id number]) 2000 F CHT Date Time Provider Department 12/03/24 ARMIDA ALAS During your visit today, we recorded the following information about you: Alyssa Hewitt RN 12/03/2024 2:16 PM Signed SPECIALTY CARE COORDINATION FOLLOW-UP NOTE Unable to reach Madhuri. Left a voice message that I was returning her phone call to schedule surgery. Asked that she call back or send [employer] message of her decision. Alyssa Hewitt RN December 03, 2024 Allergies As of Date: 12/03/2024 Noted Allergy Reaction BANANA 10/05/2010 16 - Unknown Comments: Per diagnosis LATEX 10/18/2002 16 - Unknown Comments: Per diagnosis Date Reviewed: 10/25/2024 Reviewed by: Alecia Guardado LPN - Fully Assessed Reason for Visit: Returning Patient's Call [408] Prescriptions as of 12/03/2024 - nitrofurantoin monohydrate and macrocrystal (MACROBID) 100 mg capsule Take 1 capsule by mouth two times a day for 7 days. - ALPRAZolam (XANAX) 0.25 mg tablet 0.25 MG ORALLY TWICE A DAY - amitriptyline (ELAVIL) 10 mg tablet Take 10 mg by mouth daily at bedtime. - fluconazole (DIFLUCAN) 150 mg tablet PLEASE SEE ATTACHED FOR DETAILED DIRECTIONS - hyoscyamine (LEVSIN) 0.125 mg tablet 1 TABLET ORALLY 2 TO 4 TIMES PER DAY NEEDED FOR DYSPEPSIA - Methenamine Hippurate (HIPREX) 1 gram tablet Take 1 tablet by mouth two times a day. - Phentermine HCl 37.5 mg tablet Take 1 tablet by mouth every afternoon. - Drospirenone-Ethinyl Estradiol (PHILIP, 28,) 3-0.02 mg per tablet Take 1 tablet by mouth once daily. Ok to skip placebo week and start on new pack of pills - metFORMIN (GLUCOPHAGE) 500 mg tablet Take 1 tablet by mouth daily with dinner. - Ascorbic Acid 1,000 mg tablet Take 1 tablet by mouth once daily. - albuterol HFA (PROVENTIL HFA, VENTOLIN HFA) 90 mcg/actuation inhaler Inhale 2 Puffs as instructed. - Catheter (FEMALE CATHETER) 14 Fr misc 14 Chilean, 16 inch female straight tip intermittent catheter, to use q6 hrs prn urinary retention - B.animalis,bifid,infanti s,long (PROBIOTIC 4X ORAL) Take 1 capsule by mouth once daily. 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] 10/11/2010 Constipation [K59.00] 02/18/2014 Abnormality of gait [R26.9] 03/03/2015 Thoracic outlet syndrome [G54.0] 09/17/2018 Scapulothoracic bursitis of right shoulder [M75*01/21/2019 Acute pain of right shoulder [M25.511] 01/21/2019 06/29/2020 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] Lymphedema [I89.0] Neurogenic bowel [K59.2] 06/20/2016 Obese [E66.9] Obesity, Class I, BMI 30-34.9 [E66.811] 12/15/2023 S/P brain surgery [Z98.890] 12/15/2023 Postoperative pain [G89.18] 12/18/2023 Routine physical examination [Z00.00] 12/27/2023 Recurrent UTI (urinary tract infection) [N39.0] 07/16/2024 Dysmenorrhea [N94.6] 07/16/2024 Neurogenic bladder [N31.9] 07/16/2024 Encounter Status:Closed by ALYSSA HEWITT on 12/03/[address] [facility] Rufina 12-02-2024 FANNYN Telephone (DANIEL) -------- MADHURI PAULSON ([id number]) 2000 F T Date Time Provider Department 12/02/24 ARMIDA ALAS During your visit today, we recorded the following information about you[facility] 4:46 PM Signed Madhuri Paulson [phone], called to schedule surgery. Allergies As of Date: 12/02/2024 Noted Allergy Reaction BANANA 10/05/2010 16 - Unknown Comments: Per diagnosis LATEX 10/18/2002 16 - Unknown Comments: Per diagnosis Date Reviewed: 10/25/2024 Reviewed by: Aleica Guardado LPN - Fully Assessed Reason for Visit: Schedule Surgery [1330] Prescriptions as of 12/02/2024 - nitrofurantoin monohydrate and macrocrystal (MACROBID) 100 mg capsule Take 1 capsule by mouth two times a day for 7 days. - ALPRAZolam (XANAX) 0.25 mg tablet 0.25 MG ORALLY TWICE A DAY - amitriptyline (ELAVIL) 10 mg tablet Take 10 mg by mouth daily at bedtime. - fluconazole (DIFLUCAN) 150 mg tablet PLEASE SEE ATTACHED FOR DETAILED DIRECTIONS - hyoscyamine (LEVSIN) 0.125 mg tablet 1 TABLET ORALLY 2 TO 4 TIMES PER DAY NEEDED FOR DYSPEPSIA - Methenamine Hippurate (HIPREX) 1 gram tablet Take 1 tablet by mouth two times a day. - Phentermine HCl 37.5 mg tablet Take 1 tablet by mouth every afternoon. - Drospirenone-Ethinyl Estradiol (PHILIP, 28,) 3-0.02 mg per tablet Take 1 tablet by mouth once daily. Ok to skip placebo week and start on new pack of pills - metFORMIN (GLUCOPHAGE) 500 mg tablet Take 1 tablet by mouth daily with dinner. - Ascorbic Acid 1,000 mg tablet Take 1 tablet by mouth once daily. - albuterol HFA (PROVENTIL HFA, VENTOLIN HFA) 90 mcg/actuation inhaler Inhale 2 Puffs as instructed. - Catheter (FEMALE CATHETER) 14 Fr misc 14 [place]an, 16 inch female straight tip intermittent catheter, to use q6 hrs prn urinary retention - B.animalis,bifid,infanti s,long (PROBIOTIC 4X ORAL) Take 1 capsule by mouth once daily. 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] 10/11/2010 Constipation [K59.00] 02/18/2014 Abnormality of gait [R26.9] 03/03/2015 Thoracic outlet syndrome [G54.0] 09/17/2018 Scapulothoracic bursitis of right shoulder [M75*01/21/2019 Acute pain of right shoulder [M25.511] 01/21/2019 06/29/2020 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] Lymphedema [I89.0] Neurogenic bowel [K59.2] 06/20/2016 Obese [E66.9] Obesity, Class I, BMI 30-34.9 [E66.811] 12/15/2023 S/P brain surgery [Z98.890] 12/15/2023 Postoperative pain [G89.18] 12/18/2023 Routine physical examination [Z00.00] 12/27/2023 Recurrent UTI (urinary tract infection) [N39.0] 07/16/2024 Dysmenorrhea [N94.6] 07/16/2024 Neurogenic bladder [N31.9] 07/16/2024 Encounter Status:Closed by LUIZ CAMACHO on 12/02/24 Normal [facility] Visit Repor ton 12-02-2024 Gastroenterology Visit Report [facility] [address] [place] [address] OFFICE VISIT Date of Service: 12/02/24 MR#: [id number] Acct: [id number] Name: THOMASMADHURI ALECIA Rep #: [id number] : 2000 Provider: Colton Juárez DO Age/Sex: 23/F Location: [facility] [place] Status: Signed Intake Vital Signs 07/29/24 11:07 Height 5 ft 4 in Intake Visit Reasons: 3 M FU Allergies latex Allergy (Verified 07/29/24 11:03) Other Medications ???Medication ???Instructions ???Recorded ???Confirmed ???Type ascorbic acid (vitamin C) 500 mg mg PO 06/17/24 12/02/24 History capsule lactobacillus combination no.4 3 3,000 mmu cells PO QDAY 06/17/24 0 12/02/24 History billion cell capsule (Probiotic) naproxen sodium 220 mg tablet 220 mg PO BID PRN 06/17/24 5 History (Aleve) drospirenone 3 mg-ethinyl 1 tab PO DAILY 07/29/24 12/02/24 H istory estradiol 0.02 mg tablet metformin 500 mg tablet 500 mg PO DAILY 07/29/24 12/02/24 History phentermine 37.5 mg tablet 37.5 mg PO DAILY 07/29/24 12/02/24 History (Adipex-P) amitriptyline 10 mg tablet 10 mg PO QHS #30 tabs 10/08/2408/27 Rx plecanatide 3 mg tablet (Trulance) 3 mg PO .COMPLEX #53 tabs 12/02/24 Rx PFSH Medical History (Updated 09/16/24 @ 09:[address] Colton Juárez, ) Chiari malformation Spina bifida Social History Smoking Status: Never smoker HPI HPI Details: MADHURI PAULSON, is a 23 F who presents to the office today for follow up. *BGI established 06.17.24 pt reports she is presenting to establish care with I after moving back to the area. Pt reports long hx of GI issues. Reports she has had 3 Banda Stoma surgeries to help her go to the bathroom and sometimes it helps and sometimes it doesn't. Pt reports that she is not currently having any GI symptoms of concern. She has been dealing with the complications of spina bifida including Arnold-Chiari malformation which she recently had brain surgery to correct. She is having some complications from that surgery and is not allowing her to participate in any physical activity. She often has bloating, abdominal pain and cramping and incomplete evacuation with severe constipation. This has been going on since she was a kid. SITZ severe slow transit constipation GET 1.20.25 abnormal 86.93 minutes MREnterography 07.29.24 Mild luminal narrowing in the middle and distal one third regions of the ileum and in the distal jejunum, but without beading or skipped lesions or wall thickening is most likely due to extrinsic adhesions or fibrosis from prior inflammation or prior obstruction or surgical intervention. These findings are not radiographically specific for inflammatory bowel disease but could result and symptoms of irritable bowel syndrome. No small bowel obstruction or fistulous connections or abnormal patulous dilatation. Normal remaining small bowel loops. GET 4-hr study 3.3.25 normal OV 3.17.25 pt reports abdominal for about a month now. Pain is triggered by eating or laying down and pt reports this began after all the testing she was doing. Pt reports a stabbing pain that comes and goes and a burning sensation across her upper abdomen. Pt reports continued alternating bowel movements and constant gas and bloating. OV 6.2.25 pt reports continued symptoms. Has continued BRBPR. Continued alternating bowel movements. Pt reports that she saw the head urologist that works with a Spina Bifida clinic and recommended her to a colorectal surgeon and they are discussing an ileostomy. ROS Const Constitutional: Positive for fatigue; No fever(s) or weight change ENT ENT: No difficulty swallowing Gastro GI: Positive for abdominal pain, bloating, constipation, diarrhea, excessive flatus and Blood in stool; No belching, change in bowel habits, change in stool character, coffee ground emesis, cramping, heartburn, difficulty swallowing, feeling full early, incontinent of stools, Vomiting blood/hematemesis, loose stools, Black,tarry stools, nausea/dyspepsia, pain with swallowing, vomiting or other Musc Musculoskeletal: No joint pain Skin Skin: No yellowing of the eye or itchy eyes Psych Psychiatric: No anxiety and No depression Endo Endocrine: Positive for fatigue; No weight change Aller/Imm Allergy/Immunologic: No itchy eyes Brandt/Lymp Hematologic/Lymphatic: No easy bleeding or easy bruising Exam Const General: cooperative, healthy appearing, comfortable, no acute distress, well developed, well groomed and acute distress Nutritional Appearance: well nourished Orientation: alert, awake and oriented x3 HENMT Head: normocephalic and atraumatic Eyes General: appearance normal, both eyes and all related structure (more content not included)... Normal [facility] 11-29-2024 [facility] Telephone ([place]) -------- THOMASMADHURI ([id number]) 2000 F T Date Time Provider Department 11/29/24 ARMIDA ALAS During your visit today, we recorded the following information about you: Alyssa Hewitt RN 11/29/2024 10:45 AM Signed SPECIALTY CARE COORDINATION FOLLOW-UP NOTE Spoke to Madhuri. Discussed her virtual appointment with Dr. Alas. She will be calling her insurance because she losing her insurance at the end of December since she is turning 24 years old. Explained that when she gets resolution with insurance to call back to confirm a surgery date. Also explained that once she has her virtual appointment with Dr. Alas, Dr. Alas will confirm the surgery date. She acknowledged and verbalized understanding. ' She thanked me for the phone call. 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 - ALPRAZolam (XANAX) 0.25 mg tablet 0.25 MG ORALLY TWICE A DAY - amitriptyline (ELAVIL) 10 mg tablet Take 10 mg by mouth daily at bedtime. - fluconazole (DIFLUCAN) 150 mg tablet PLEASE SEE ATTACHED FOR DETAILED DIRECTIONS - hyoscyamine (LEVSIN) 0.125 mg tablet 1 TABLET ORALLY 2 TO 4 TIMES PER DAY NEEDED FOR DYSPEPSIA - Methenamine Hippurate (HIPREX) 1 gram tablet Take 1 tablet by mouth two times a day. - Phentermine HCl 37.5 mg tablet Take 1 tablet by mouth every afternoon. - Drospirenone-Ethinyl Estradiol (PHILIP, 28,) 3-0.02 mg per tablet Take 1 tablet by mouth once daily. Ok to skip placebo week and start on new pack of pills - metFORMIN (GLUCOPHAGE) 500 mg tablet Take 1 tablet by mouth daily with dinner. - Ascorbic Acid 1,000 mg tablet Take 1 tablet by mouth once daily. - albuterol HFA (PROVENTIL HFA, VENTOLIN HFA) 90 mcg/actuation inhaler Inhale 2 Puffs as instructed. - Catheter (FEMALE CATHETER) 14 Fr misc 14 [place]an, 16 inch female straight tip intermittent catheter, to use q6 hrs prn urinary retention - B.animalis,bifid,infanti s,long (PROBIOTIC 4X ORAL) Take 1 capsule by mouth once daily. 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] 10/11/2010 Constipation [K59.00] 02/18/2014 Abnormality of gait [R26.9] 03/03/2015 Thoracic outlet syndrome [G54.0] 09/17/2018 Scapulothoracic bursitis of right shoulder [M75*01/21/2019 Acute pain of right shoulder [M25.511] 01/21/2019 06/29/2020 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] Lymphedema [I89.0] Neurogenic bowel [K59.2] 06/20/2016 Obese [E66.9] Obesity, Class I, BMI 30-34.9 [E66.811] 12/15/2023 S/P brain surgery [Z98.890] 12/15/2023 Postoperative pain [G89.18] 12/18/2023 Routine physical examination [Z00.00] 12/27/2023 Recurrent UTI (urinary tract infection) [N39.0] 07/16/2024 Dysmenorrhea [N94.6] 07/16/2024 Neurogenic bladder [N31.9] 07/16/2024 Encounter Status:Closed by ALYSSA HEWITT on 11/29/24 [facility] 11-28-2024 CNPN Telephone (CORSMN) -------- MADHURI PAULSON ([id number]) 2000 F CHT Date Time Provider Department 11/28/24 ARMIDA ALAS During your visit today, we recorded the following information about you: Alyssa Hewitt RN 11/28/2024 1:48 PM Signed SPECIALTY CARE COORDINATION FOLLOW-UP NOTE Unable to reach Madhuri. Left a voice message in regards to scheduling surgery with Dr. Alas. Dr. Alas is looking at end of December -mid January but needs an appointment to discuss progress and surgical options. Will send a [employer] message. 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 - ALPRAZolam (XANAX) 0.25 mg tablet 0.25 MG ORALLY TWICE A DAY - amitriptyline (ELAVIL) 10 mg tablet Take 10 mg by mouth daily at bedtime. - fluconazole (DIFLUCAN) 150 mg tablet PLEASE SEE ATTACHED FOR DETAILED DIRECTIONS - hyoscyamine (LEVSIN) 0.125 mg tablet 1 TABLET ORALLY 2 TO 4 TIMES PER DAY NEEDED FOR DYSPEPSIA - Methenamine Hippurate (HIPREX) 1 gram tablet Take 1 tablet by mouth two times a day. - Phentermine HCl 37.5 mg tablet Take 1 tablet by mouth every afternoon. - Drospirenone-Ethinyl Estradiol (PHILIP, 28,) 3-0.02 mg per tablet Take 1 tablet by mouth once daily. Ok to skip placebo week and start on new pack of pills - metFORMIN (GLUCOPHAGE) 500 mg tablet Take 1 tablet by mouth daily with dinner. - Ascorbic Acid 1,000 mg tablet Take 1 tablet by mouth once daily. - albuterol HFA (PROVENTIL HFA, VENTOLIN HFA) 90 mcg/actuation inhaler Inhale 2 Puffs as instructed. - Catheter (FEMALE CATHETER) 14 Fr misc 14 [place]an, 16 inch female straight tip intermittent catheter, to use q6 hrs prn urinary retention - B.animalis,bifid,infanti s,long (PROBIOTIC 4X ORAL) Take 1 capsule by mouth once daily. 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] 10/11/2010 Constipation [K59.00] 02/18/2014 Abnormality of gait [R26.9] 03/03/2015 Thoracic outlet syndrome [G54.0] 09/17/2018 Scapulothoracic bursitis of right shoulder [M75*01/21/2019 Acute pain of right shoulder [M25.511] 01/21/2019 06/29/2020 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] Lymphedema [I89.0] Neurogenic bowel [K59.2] 06/20/2016 Obese [E66.9] Obesity, Class I, BMI 30-34.9 [E66.811] 12/15/2023 S/P brain surgery [Z98.890] 12/15/2023 Postoperative pain [G89.18] 12/18/2023 Routine physical examination [Z00.00] 12/27/2023 Recurrent UTI (urinary tract infection) [N39.0] 07/16/2024 Dysmenorrhea [N94.6] 07/16/2024 Neurogenic bladder [N31.9] 07/16/2024 Encounter Status:Closed by ALYSSA HWEITT on 11/28/[address] [facility] Bacteria Ur Culton Bacteria identified Cx Nom (U) ORGANISM ID: 1 >=100,000 CFU/ml Escherichia coli ORGANISM ID: 1 (ESCHERICHIA COLI) ANTIBIOTIC INTERPRETATION ALVIN STATUS REFERENCE RANGE Ampicillin S <=4 F Susceptible <=8 , Intermediate >8 , Resistant >16 Cefazolin S 2 F Susceptible 0-16 , Intermediate <0 or >16 , Resistant >16 For uncomplicated urinary tract infections, cefazolin results can be used to predict susceptibility or resistance to cephalexin. Ceftriaxone S <=1 F Susceptible <=1 , Intermediate >1 , Resistant >=4 Cefepime S <=1 F Susceptible <=2 , Susceptible-Dose Dependent >2 , Resistant >=16 Ertapenem S <=0.25 F Susceptible <=0.5 , Intermediate >.5 , Resistant >1 Meropenem S <=0.5 F Susceptible <=1 , Intermediate >1 , Resistant >2 Ampicillin/Sulbact S 2 F Piperacillin/Tazobac S <=2 F Gentamicin S <=2 F Susceptible <=2 , Intermediate >2 , Resistant >4 Trimeth sulfameth S <=0.5 F Ciprofloxacin S <=0.25 F Susceptible <0.5 , Intermediate >=.5 , Resistant >=1 Nitrofurantoin S <=16 F Susceptible <=32 , Intermediate >32 , Resistant >64 Abnormal [facility] Comment on above: Performed By: #### 6 30-4 #### [facility] CLIA [id number] [address] [place] [address] [place] HISTORY PHYSICALon HISTORY PHYSICAL HNO ID: [id number] Author: ARMIDA ALAS, DO Service: ? Author Type: Physician Type: H&P Filed: 11/25/2024 13:55 Note Text: COLORECTAL SURGERY NEW VIRTUAL VISIT 11/20/2024 I have communicated my name and active licensure. The patient's identity and physical location were verified at the time of this visit. Either the patient or their legal goodwill representative has been informed of the risks and benefits of -- and alternatives to -- treatment through a remote evaluation and consents to proceed with the evaluation remotely. I had a virtual visit with Ms. Paulson today. Her local doctors have given her a diagnosis of No diagnosis found.. HISTORY: HPI: The patient is a 23-year-old female with spina bifida and neurogenic bowel, presenting for evaluation of refractory constipation and ineffective Banda antegrade continence enema (AL) management. She reports having had her Banda AL created at age 13 or 14 at [facility] by Dr. German. She currently irrigates daily with 600 mL of warm water, previously adding Miralax, which she discontinued due to lack of efficacy. She states that the irrigation is not working well, describing frequent periods when nothing is expelled despite irrigation, necessitating manual disimpaction several times per month. She notes that about one to two months ago, she went a full week without a bowel movement, passing only blood, and ultimately required disimpaction of very hard stool. She describes her current output as ?pure water, brown water,? and cannot recall the last time she had a formed bowel movement. She denies any current fecal leakage. The patient reports that her bowel regimen initially worked ?fairly well,? though it was associated with severe pain and frequent syncope during irrigation. Over the past three to four years, her symptoms have significantly worsened, with increasing difficulty achieving effective evacuation. She describes severe abdominal pain localized to the upper abdomen, just below the ribs bilaterally, which has worsened over the past five months. This pain is severe enough that she now sleeps sitting up and can ?hardly eat any food,? with associated abdominal distension to the point of appearing ?nine months .? She also reports frequent episodes of severe pain resulting in vomiting. She states that the irrigation process takes at least one hour daily and makes her feel ill each time. She expresses that these symptoms have significantly impacted her quality of life, stating she is ?tired of having to go to the ER? for manual disimpaction and that the chronic pain and ineffective bowel management have been very difficult to endure. Regarding weight, she reports gaining 15-20 pounds over the past three and a half years following brain surgery, attributed to inability to exercise. She began metformin in July for weight loss and has since lost approximately 20-30 pounds, with her current weight around 175 pounds (down from a maximum of 196 pounds). She notes that her weight is now close to what it was in high school. She also reports a history of spina bifida-related neurogenic bladder and has experienced six or seven E. coli urinary tract infections this year. She has undergone extensive testing over the past five months due to worsening symptoms. CT Scan with Contrast: Banda channel in appropriate position; large stool burden noted. Urine Culture: Escherichia coli isolated in multiple instances. PAST MEDICAL HISTORY Diagnosis Date Acute pain of right shoulder 01/21/2019 Chiari malformation type I (HCC) Lymphedema Menarche 09/2011 [facility] - PAST MEDICAL HISTORY OF spina bifida [facility] - PAST MEDICAL HISTORY OF 01/07/2004 color vision-normal [facility] - PAST MEDICAL HISTORY OF bilateral club feet PMH - PAST MEDICAL HISTORY OF broken leg in 10/09 PAST SURGICAL HISTORY Procedure Laterality Date AFP, OPEN SPINA BIFIDA ([facility]) Spina Bifida surgery during infancy APPENDICONEOVESICOSTOMY 06/20/2016 APPENDICONEOVESICOSTOMY 12/2016 COLONOSCOPY FLX DX W/COLLJ SPEC WHEN PFRMD 10/24/2017 Colonoscopy KNEE RIGHT OP SURGERY 10/2012 right knee PAST SURGICAL HISTORY OF Bilateral Foot reconstruction x 4-5 times PAST SURGICAL HISTORY OF laser surgery on birthmark PAST SURGICAL HISTORY OF 10/2010 right knee surgery TONSILLECTOMY AND ADENOIDECTOMY Current Outpatient Medications Medication Sig Dispense Refill ALPRAZolam (XANAX) 0.25 mg tablet 0.25 MG ORALLY TWICE A DAY amitriptyline (ELAVIL) 10 mg tablet Take 10 mg by mouth daily at bedtime. fluconazole (DIFLUCAN) 150 mg tablet PLEASE SEE ATTACHED FOR DETAILED DIRECTIONS hyoscyamine (LEVSIN) 0.125 mg tablet 1 TABLET ORALLY 2 TO 4 TIMES PER DAY NEEDED FOR DYSPEPSIA Methenamine Hippurate (HIPREX) 1 gram tablet Take 1 tablet by mouth two times a day. 60 tablet 5 Phentermine HCl 37.5 mg tablet Take 1 tablet by mouth every after (more content not included)... Normal [facility] Bacteria Ur Culton Bacteria identified Cx Nom (U) ORGANISM ID: 1 1,000 - <5,000 CFU/ml Normal urogenital maris Normal [facility] Comment on above: Performed By: #### 6 30-4 ####[facility] LABCLIA [id number] [address] [place] [facility] HLA-DQ GENOTYPE on 10-25-2024 BLAKE INTERPRETATION The HLA-DQ genotype of the patient is not supportive of an increased risk of celiac disease. Normal [facility] Comment on above: Order Comment: Speci men Type: BLOOD SPECIMENOrdering Facility: [facility] Address: [address] [place] [address] Performed By: #### C MAURICIO ####[facility]OR[facility]IESCLIA [id number] [place] [address] [place] CELIAC CATEGORY Category 0 Normal [facility] Comment on above: Order Comment: Speci men Type: BLOOD SPECIMENOrdering Facility: [facility] Address: [address], [place] [address] Result Comment: JUSTIN ARROYO DQ HAPLOTYPE RELATIVE RISK Category 7 DQ2.2 AND DQ2.5 Extremely High Category 7 DQ2.5 AND DQ2.5 Extremely High Category 6 DQ2.2 AND DQA1*05, DQB1*03:01 Very High Category 5 DQ2.2 AND DQ8 Very High Category 5 DQ2.5 AND DQ8 Very High Category 4 DQ8 AND DQ8 High Category 3 DQ2.5 AND DQA1*05, DQB1*03:01 High Category 3 DQ2.5 AND DQA1*02:01, DQB1*03:03 High Category 3 DQ2.5 AND DQA1*03, DQB1*02 High Category 3 DQ2.5 AND OTHER LOW RISK ALLELE High Category 3 DQ2.2 AND DQA1*05, DQB1*03:03 High Category 2 DQ8 AND OTHER LOW RISK ALLELE Moderate Category 1 DQ2.2 AND OTHER LOW RISK ALLELE Low Category 0 NEGATIVE FOR DQ2.2 Negative Category 0 NEGATIVE FOR DQ2.5 Negative Category 0 NEGATIVE FOR DQ8 Negative DQ2.2 = DQA1*02:01, DQB1*02:02 DQ2.5 = DQA1*05, DQB1*02:01 DQ8 = DQA1*03, DQB1*03:02 The identification of one of these HLA-DQ genotypes is not, by itself, sufficient for the diagnosis of celiac disease, since both DQ2 and DQ8 are relatively common in the general population. The strongest reported HLA associations with celiac disease include DQ2 (DQ2.5 or DQA1*05-DQB1*02:01 & DQA2.2 or DQA1*02:01-DQB1*02:02) and DQ8 (DQA1*03:01/DQB1*03:02). This test is useful for family members of celiac patients and patients with negative serology results. This testing can rule out celiac disease with high negative predictive value (NPV) of 95-100% depending on the ethnic background. In cases of an ambiguous HLA allele assignment where multiple rare alleles cannot be excluded, the most common HLA allele is reported. References: 1. Huyen Estrada, Hank J, Silvio Kimball, et al. Cost-effective HLA typing with tagging SNPs predicts celiac disease risk haplotypes in the [place], Irish and Swedish populations. Immunogenetics. 2009 Oct;61(4):247-56. 2. Jose E SEWELL. Celiac disease: dissecting a complex inflammatory disorder. Avis Rev Immunol. 2002 Mar;2(9):647-55. 3. Adama E, Kal HS, Savannah KRAMER, et al. Risk of pediatric celiac disease according to HLA haplotype and country. N Engl J Med. 2014 ;371(1):42-9. HLA typing performed by PCR-RSSOP and/or NGS. This test was developed and its performance characteristics determined by [facility]. The test has not been cleared or approved by the [place] FDA. However, FDA approval was not necessary since this lab is certified under CLIA for high complexity testing. Test performed by: [facility], [address] [place] [address], [facility] [place] [address]. CLIA [id number]. Performed By: #### C MAURICIO ####[facility] LABORATORIESCLIA [id number] [address] OF [place] CELIAC RISK HAPLOTYPE Negative Normal [facility] Comment on above: Order Comment: Speci men Type: BLOOD SPECIMENOrdering Facility: [facility] Address: [address] [place] [address] Performed By: #### C MAURICIO ####[facility] LABORATORIESCLIA [id number] [address] [place] HLA-DQA1 GENOTYPE HLA-DQA1*: 03, 01 Normal [facility] Comment on above: Order Comment: Speci men Type: BLOOD SPECIMENOrdering Facility: [facility] Address: [address] [place] [address] Performed By: #### C MAURICIO ####[facility] LABORATORIESCLIA [id number] [address] [place] HLA-DQB1 GENOTYPE HLA-DQB1*: 03:01, 06 Normal [facility] Comment on above: Order Comment: Speci men Type: BLOOD SPECIMENOrdering Facility: [facility] Address: [address] [place] [address] Performed By: #### C MAURICIO ####[facility]ENTERIA [id number] [address] OF [facility] CNOVgloria 10-25-2024 CNOV Office Visit (FAMPWS ) -------- MADHURI PAULSON ([id number]) 2000 F CHT Date Time Provider Department 10/25/24 11:00 AM [facility] During your visit today, we recorded the following information about you: Temperature Pulse Respiration Blood pressure 97.3 degrees 76/minute 16/minute 124/80 Weight 80.3 kg Juan Manuel Antonio, 10/25/2024 5:38 PM Signed CC: Madhuri Paulson is a 23 year old female who presents to the office for follow up HPI: She states that for the last few months she has really been struggling with some new and recurrent health issues, that are impacting her daily life and her ability to eat well and maintain good health. She steats that she Saw Urologist recently since has had 7 different UTIs in 2024 already. She states that the physician feels related to the constipation/diarrhea due to stool irregularity since all the UTIs are due to E coli. She would like her to see a colorectal specialist since she is concerned it is due to adynamic colon Having upper abdominal pain, worse after eating and worse at night. Constant symptoms. She has a history of a banda stoma and instills 600 cc of warm water in this for use. She is struggling to eat because of her abdominal pain and b/l upper abdominal pressure that she is getting Has been seen by Dr. Franck Couch, had CT abd/pelvis with contrast as well as many labs which were all overall normal appearing Spina bifida specialist feels that she needs to see colorectal surgeon. Is waiting for this appointment but hasn't heard when this will be- hasn't been called on appt yet. PAST MEDICAL HISTORY Diagnosis Date Acute pain of right shoulder 01/21/2019 Chiari malformation type I (HCC) Lymphedema Menarche 09/2011 PMH - PAST MEDICAL HISTORY OF spina bifida PMH - PAST MEDICAL HISTORY OF 01/07/2004 color vision-normal PMH - PAST MEDICAL HISTORY OF bilateral club feet PMH - PAST MEDICAL HISTORY OF broken leg in 10/09 PAST SURGICAL HISTORY Procedure Laterality Date AFP, OPEN SPINA BIFIDA ([facility]) Spina Bifida surgery during infancy APPENDICONEOVESICOSTOMY 06/20/2016 APPENDICONEOVESICOSTOMY 12/2016 COLONOSCOPY FLX DX W/COLLJ SPEC WHEN PFRMD 10/24/2017 Colonoscopy KNEE RIGHT OP SURGERY 10/2012 right knee PAST SURGICAL HISTORY OF Bilateral Foot reconstruction x 4-5 times PAST SURGICAL HISTORY OF laser surgery on birthmark PAST SURGICAL HISTORY OF 10/2010 right knee surgery TONSILLECTOMY AND ADENOIDECTOMY Current Outpatient Medications Medication Sig ALPRAZolam (XANAX) 0.25 mg tablet 0.25 MG ORALLY TWICE A DAY amitriptyline (ELAVIL) 10 mg tablet Take 10 mg by mouth daily at bedtime. fluconazole (DIFLUCAN) 150 mg tablet PLEASE SEE ATTACHED FOR DETAILED DIRECTIONS hyoscyamine (LEVSIN) 0.125 mg tablet 1 TABLET ORALLY 2 TO 4 TIMES PER DAY NEEDED FOR DYSPEPSIA Methenamine Hippurate (HIPREX) 1 gram tablet Take 1 tablet by mouth two times a day. Phentermine HCl 37.5 mg tablet Take 1 tablet by mouth every afternoon. Drospirenone-Ethinyl Estradiol (PHILIP, 28,) 3-0.02 mg per tablet Take 1 tablet by mouth once daily. Ok to skip placebo week and start on new pack of pills metFORMIN (GLUCOPHAGE) 500 mg tablet Take 1 tablet by mouth daily with dinner. Ascorbic Acid 1,000 mg tablet Take 1 tablet by mouth once daily. albuterol HFA (PROVENTIL HFA, VENTOLIN HFA) 90 mcg/actuation inhaler Inhale 2 Puffs as instructed. Catheter (FEMALE CATHETER) 14 Fr misc 14 Chilean, 16 inch female straight tip intermittent catheter, to use q6 hrs prn urinary retention B.animalis,bifid,infanti s,long (PROBIOTIC 4X ORAL) Take 1 capsule by mouth once daily. polyethylene glycol 3350 (MIRALAX) 17 gram/dose powder One quarter capful added to 800 cc of water and then flushed through the Banda stoma No current facility-administered medications for this visit. ALLERGIES Allergen Reactions Banana Unknown Per diagnosis Latex Unknown Per diagnosis Social History Tobacco Use Smoking status: Never Passive exposure: Never Smokeless tobacco: Never Tobacco comments: no smokers in home Vaping Use Vaping status: Never Used Substance Use Topics Alcohol use: Yes Comment: Not weekly Drug use: Never ROS: See HIP PE: BP 124/80 Pulse 76 Temp (Src) 97.3 (Right Tympanic) Resp 16 Wt 177 lb (80.3kg) LMP 10/03/2024 Gen: AANDOX3, tearful in the office today HEENT: PERRLA, EOMs intact b/l, nares without drainage, pharynx without erythema, exudate, lesions, or drainage. Uvula midline. Neck: No LAD, no thyromegaly, no meningismus. CV: RRR, no murmur Lungs: CTA b/l, no wheezing Skin: No rashes, lesions, or wounds on exposed skin. Impaired gait secondary to spina bifida Abd: + RUQ and + LUQ abd pain without obvious mass present, + hypoactive bowel sounds ASSESSMENT/PLAN: 1. Left upper quadrant abdo (more content not included)... Normal [facility] CYSTATIN Con 10-25-2024 Cystatin C [Mass/Vol] 0.72 mg/L Normal 0.61-0.95 [facility] Comment on above: Order Comment: Speci men Type: BLOOD SPECIMENOrdering Facility: [facility] Address: [address] [place] [address] Performed By: #### C [facility] ####[facility] LABCLIA [id number] [place] [address] [place] CYSTATIN C EGFR 118 mL/min/1.73m??? Normal >=60 [facility] Comment on above: Order Comment: Speci men Type: BLOOD SPECIMENOrdering Facility: [facility] Address: [address] [place] [address] Result Comment: Carmen mated Glomerular Filtration Rate (eGFR) is calculated using the 2012 CKD-EPI cystatin C equation. This equation utilizes serum cystatin C, sex, and age as parameters. The cystatin C assay has traceable calibration to the ERM-DA471/IF reference material. Refer to KDIGO guidelines for clinical interpretation. In patients with unstable renal function, e.g. those with acute kidney injury, the eGFR may not accurately reflect actual GFR. Performed By: #### C YSTC ####[facility] LABCLIA [id number] [address] OF [facility] CNOVon 10-21-2024 CNOV Office Visit (UROLMN ) -------- MADHURI PAULSON ([id number]) 2000 F T Date Time Provider Department 10/21/24 9:00 AM CHRISTEN GEE UROTAL During your visit today, we recorded the following information about you: Christen Gee MD 10/21/2024 9:54 AM Addendum [facility] NEW PATIENT HISTORY AND PHYSICAL EXAM PATIENT INFO: Madhuri Walter Thomas 23 year old Self-referred ======== HISTORY ======== CHIEF COMPLAINT: The patient is a 23-year-old female with a history of low lumbar/sacral spina bifida and type 1 Chiari malformation, presenting for recurrent UTIs and bowel management issues. HPI: Recurrent UTIs: - 7th UTI this year; typically experiences UTIs for half the year. - Most recent episode began in July. - Symptoms include urinary frequency and fatigue. - Self-catheterizes Q1H due to bladder pressure; denies urinary leakage between catheterizations. - Urine cultures have predominantly shown E. coli. - No bladder reconstruction; not performing bladder irrigations. - Taking D-mannose and a probiotic; not on antibiotic prophylaxis. - Recent imaging shows normal kidneys; creatinine 0.58 mg/dL. - Drinks approximately one bottle of water per day. Bowel Management: - Chronic constipation; requires fecal disimpactions a couple of times a month. - Has a Banda stoma; instills 600 cc of warm water daily with minimal stool output. - Experiences severe pain under ribs during Banda stoma use, requiring pressure application for relief. - Pain persists throughout the night, making it difficult to lie down; uses a heating pad for relief. - Recent ER visit due to severe pain and emesis after unsuccessful Banda stoma use. - Managed by a GI doctor in [place]; has undergone multiple Banda stoma reconstructions. - Recent CT scan performed to assess Banda stoma function. - Has undergone various tests, including allergy tests and gastric emptying studies, with no definitive cause identified. Low Lumbar/Sacral Spina Bifida: - Ambulatory; uses a wheelchair for long distances. - Experiences neck and leg pain with prolonged walking. - No webbing inspector involvement. Type 1 Chiari Malformation: - Status post arachnoid dissection in December 2023. - No shunt placement; managed by Dr. Story. - Recent ED visit for headaches and dizziness. Menstrual Health: - Normal menstrual cycles with spotting due to control use. - Recent ED visit for abnormal vaginal bleeding after starting control. ======= Current Outpatient Medications on File Prior to Visit Medication Sig ALPRAZolam (XANAX) 0.25 mg tablet 0.25 MG ORALLY TWICE A DAY amitriptyline (ELAVIL) 10 mg tablet Take 10 mg by mouth daily at bedtime. fluconazole (DIFLUCAN) 150 mg tablet PLEASE SEE ATTACHED FOR DETAILED DIRECTIONS hyoscyamine (LEVSIN) 0.125 mg tablet 1 TABLET ORALLY 2 TO 4 TIMES PER DAY NEEDED FOR DYSPEPSIA ciprofloxacin HCl (CIPRO) 500 mg tablet Take 1 tablet by mouth two times a day for 7 days. Phentermine HCl 37.5 mg tablet Take 1 tablet by mouth every afternoon. Drospirenone-Ethinyl Estradiol (PHILIP, 28,) 3-0.02 mg per tablet Take 1 tablet by mouth once daily. Ok to skip placebo week and start on new pack of pills metFORMIN (GLUCOPHAGE) 500 mg tablet Take 1 tablet by mouth daily with dinner. Ascorbic Acid 1,000 mg tablet Take 1 tablet by mouth once daily. albuterol HFA (PROVENTIL HFA, VENTOLIN HFA) 90 mcg/actuation inhaler Inhale 2 Puffs as instructed. Catheter (FEMALE CATHETER) 14 Fr misc 14 [place]an, 16 inch female straight tip intermittent catheter, to use q6 hrs prn urinary retention B.animalis,bifid,infanti s,long (PROBIOTIC 4X ORAL) Take 1 capsule by mouth once daily. polyethylene glycol 3350 (MIRALAX) 17 gram/dose powder One quarter capful added to 800 cc of water and then flushed through the Banda stoma No current facility-administered medications on file prior to visit. MEDICATION ALLERGIES: ALLERGIES Allergies: Banana Unknown Comment:Per diagnosis Latex Unknown Comment:Per diagnosis PAST MEDICAL HISTORY Diagnosis Date Acute pain of right shoulder 01/21/2019 Chiari malformation type I (HCC) Lymphedema Menarche 09/2011 PMH - PAST MEDICAL HISTORY OF spina bifida PMH - PAST MEDICAL HISTORY OF 01/07/2004 color vision-normal PMH - PAST MEDICAL HISTORY OF bilateral club feet PMH - PAST MEDICAL HISTORY OF broken leg in 10/09 PAST SURGICAL HISTORY Procedure Laterality Date AFP, OPEN SPINA BIFIDA ([facility]) Spina Bifida surgery during infancy APPENDICONEOVESICOSTOMY 06/20/2016 APPENDICONEOVESICOSTOMY 12/2016 COLONOSCOPY FLX DX W/COLLJ SPEC WHEN PFRMD 10/24/2017 Colonoscopy KNEE RIGHT OP SURGERY 10/2012 right knee PAST SURGICAL HISTORY OF Bilateral Foot reconstruction x 4-5 times PAST ZEINA (more content not included)... Normal [facility] Rufina 10-21-2024 FANNYN Telephone ([place]) -------- MADHURI PAULSON ([id number]) 2000 F T Date Time Provider Department 10/21/24 GRIFFIN, NAVEEN UROLMN During your visit today, we recorded the following information about you: Naveen Moya RN 10/21/2024 12:02 PM Signed Faxed office note and catheter order for 14F gc pushpa female length to [facility] [employer]. A copy of both was sent to patient through [employer] for her records. Naveen Moya RN Allergies As of Date: 10/21/2024 Noted Allergy Reaction BANANA 10/05/2010 16 - Unknown Comments: Per diagnosis LATEX 10/18/2002 16 - Unknown Comments: Per diagnosis Date Reviewed: 10/21/2024 Reviewed by: Constantin Avalos MA - Fully Assessed Reason for Visit: Orders [681] Prescriptions as of 10/21/2024 - ALPRAZolam (XANAX) 0.25 mg tablet 0.25 MG ORALLY TWICE A DAY - amitriptyline (ELAVIL) 10 mg tablet Take 10 mg by mouth daily at bedtime. - fluconazole (DIFLUCAN) 150 mg tablet PLEASE SEE ATTACHED FOR DETAILED DIRECTIONS - hyoscyamine (LEVSIN) 0.125 mg tablet 1 TABLET ORALLY 2 TO 4 TIMES PER DAY NEEDED FOR DYSPEPSIA - Methenamine Hippurate (HIPREX) 1 gram tablet Take 1 tablet by mouth two times a day. - ciprofloxacin HCl (CIPRO) 500 mg tablet Take 1 tablet by mouth two times a day for 7 days. - Phentermine HCl 37.5 mg tablet Take 1 tablet by mouth every afternoon. - Drospirenone-Ethinyl Estradiol (PHILIP, 28,) 3-0.02 mg per tablet Take 1 tablet by mouth once daily. Ok to skip placebo week and start on new pack of pills - metFORMIN (GLUCOPHAGE) 500 mg tablet Take 1 tablet by mouth daily with dinner. - Ascorbic Acid 1,000 mg tablet Take 1 tablet by mouth once daily. - albuterol HFA (PROVENTIL HFA, VENTOLIN HFA) 90 mcg/actuation inhaler Inhale 2 Puffs as instructed. - Catheter (FEMALE CATHETER) 14 Fr misc 14 [place]an, 16 inch female straight tip intermittent catheter, to use q6 hrs prn urinary retention - B.animalis,bifid,infanti s,long (PROBIOTIC 4X ORAL) Take 1 capsule by mouth once daily. 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] 10/11/2010 Constipation [K59.00] 02/18/2014 Abnormality of gait [R26.9] 03/03/2015 Thoracic outlet syndrome [G54.0] 09/17/2018 Scapulothoracic bursitis of right shoulder [M75*01/21/2019 Acute pain of right shoulder [M25.511] 01/21/2019 06/29/2020 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] Lymphedema [I89.0] Neurogenic bowel [K59.2] 06/20/2016 Obese [E66.9] Obesity, Class I, BMI 30-34.9 [E66.811] 12/15/2023 S/P brain surgery [Z98.890] 12/15/2023 Postoperative pain [G89.18] 12/18/2023 Routine physical examination [Z00.00] 12/27/2023 Recurrent UTI (urinary tract infection) [N39.0] 07/16/2024 Dysmenorrhea [N94.6] 07/16/2024 Neurogenic bladder [N31.9] 07/16/2024 Encounter Status:Closed by NAVEEN MOYA on 10/21/24 Normal [facility] UA DIP, URINE (POC)on 2024 BILIRUBIN UA (POCT) Negative Negative [facility] CLARITY UA (POCT) Clear [facility] COLOR UA (POCT) Yellow [facility] GLUCOSE UA (POCT) Negative Negative mg/dL [facility] Hemoglobin Ql (U) Negative Negative [facility] Interpretation and review of laboratory results Abnormal [facility] KETONE UA (POCT) Negative Negative mg/dL [facility] LEUKOCYTES UA (POCT) [facility] ([facility]) Negative Negative [facility] PH UA (POCT) 5 4.5 - 8.0 [facility] Protein Ql (U) Trace Abnormal Negative mg/dL [facility] SPECIFIC GRAVITY UA (POCT) >=1.030 1.005 - 1.030 [facility] UROBILINOGEN UA (POCT) 0.2 Normal E.U./dL [facility] Location:[facility], [address] [place] [address] POINT OF CARE [facility] CNPNon 10-18-2024 CNPN Telephone (GLQ) -------- MADHURI PAULSON ([id number]) 2000 F CHT Date Time Provider Department 10/18/24 CHRISTEN GEE GLQ During your visit today, we recorded the following information about you: [facility] Patient Service PrakashShaun 10/18/2024 9:43 AM Signed Requested operative reports from [facility] fax: [phone]. Requested images and reports from [facility] ph: [phone] Allergies As of Date: 10/18/2024 Noted Allergy Reaction BANANA 10/05/2010 16 - Unknown Comments: Per diagnosis LATEX 10/18/2002 16 - Unknown Comments: Per diagnosis Date Reviewed: 10/03/2024 Reviewed by: Harvey Dang, JUDE - Fully Assessed Prescriptions as of 10/18/2024 - ciprofloxacin HCl (CIPRO) 500 mg tablet Take 1 tablet by mouth two times a day for 7 days. - Phentermine HCl 37.5 mg tablet Take 1 tablet by mouth every afternoon. - Drospirenone-Ethinyl Estradiol (PHILIP, 28,) 3-0.02 mg per tablet Take 1 tablet by mouth once daily. Ok to skip placebo week and start on new pack of pills - metFORMIN (GLUCOPHAGE) 500 mg tablet Take 1 tablet by mouth daily with dinner. - Ascorbic Acid 1,000 mg tablet Take 1 tablet by mouth once daily. - albuterol HFA (PROVENTIL HFA, VENTOLIN HFA) 90 mcg/actuation inhaler Inhale 2 Puffs as instructed. - Catheter (FEMALE CATHETER) 14 Fr misc 14 [place]an, 16 inch female straight tip intermittent catheter, to use q6 hrs prn urinary retention - B.animalis,bifid,infanti s,long (PROBIOTIC 4X ORAL) Take 1 capsule by mouth once daily. 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] 10/11/2010 Constipation [K59.00] 02/18/2014 Abnormality of gait [R26.9] 03/03/2015 Thoracic outlet syndrome [G54.0] 09/17/2018 Scapulothoracic bursitis of right shoulder [M75*01/21/2019 Acute pain of right shoulder [M25.511] 01/21/2019 06/29/2020 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] Lymphedema [I89.0] Neurogenic bowel [K59.2] 06/20/2016 Obese [E66.9] Obesity, Class I, BMI 30-34.9 [E66.811] 12/15/2023 S/P brain surgery [Z98.890] 12/15/2023 Postoperative pain [G89.18] 12/18/2023 Routine physical examination [Z00.00] 12/27/2023 Recurrent UTI (urinary tract infection) [N39.0] 07/16/2024 Dysmenorrhea [N94.6] 07/16/2024 Neurogenic bladder [N31.9] 07/16/2024 Encounter Status:Closed by [facility] PATIENT SERVICE SHAUN PAEZ on 10/18/24 Normal [facility] Abdomen/Pelvis WITH Contrast on 10-14-2024 Abdomen/Pelvis WITH Contrast [facility] Imaging Services [address] [place] [address] Abdomen/Pelvis WITH Contrast MR#: [id number] Acct: [id number] Name: MADHURI PAULSON Rep #: [id number] : 2000 F 23 From: Malick maher MD PCP: Dr. Juan Manuel Antonio, Status: REG CLI Study: Abdomen/Pelvis WITH Contrast Date of Exam: Exam# [id number] Ordering Dr: Colton Juárez DO PROCEDURE: ABDOMEN/PELVIS WITH CONTRAST 10/14/2024 REASON FOR EXAM: IV AND THROUGH THE BANDA STOMA PLEASE One-week history of bloody stool. History of a stoma. History of spina bifida. TECHNIQUE: Abdomen and pelvis CT with intravenous contrast. Coronal and Sagittal reconstruction series were provided. PATIENT PREPARATION: Per protocol ORAL CONTRAST TYPE: A mixture of saline and Gastrografin into the stoma. CONTRAST: Isovue-300 VOLUME: 100 mL One or more dose reduction techniques were used (e.g., Automated exposure control, adjustment of the mA and/or kV according to patient size, use of iterative reconstruction technique. RADIATION DOSE SUMMARY: CTDlvol: 14.7 mGy DLP: 940 mGycm COMPARISON: None FINDINGS: Lung bases: Unremarkable Liver: Normal size. No mass. Gallbladder: Unremarkable Spleen: Normal size. Pancreas: Normal size without evidence of mass surrounding inflammation or ductal dilation. Adrenals: Unremarkable Kidneys: Unremarkable Bladder: Unremarkable Reproductive Organs: Normal uterine size and contour. Ovaries are unremarkable. Bowel: Injected contrast is seen in the right hemicolon. A catheter is seen entering the umbilicus with termination into the right hemicolon. Appendix: The appendix is not identified. There is no inflammatory process identified in the right lower quadrant to suggest appendicitis. Lymph nodes: No suspicious lymph node enlargement. Vasculature: The abdominal aorta and IVC are normal. Peritoneum / Retroperitoneum: Unremarkable Bones: Spondylolysis of the pars interarticularis of the L5 vertebrae. CT/Abdomen/Pelvis WITH Contrast IMPRESSION: No acute abnormality is seen. Reading Location: [place] [address] CC: Dr. Juan Manuel Antonio DO; Colton Juárez DO Bilingual Case Manager: Signed Normal [facility] Bacteria Ur Culton Bacteria identified Cx Nom (U) ORGANISM ID: 1 >=100,000 CFU/ml Escherichia coli ORGANISM ID: 1 (ESCHERICHIA COLI) ANTIBIOTIC INTERPRETATION ALVIN STATUS REFERENCE RANGE Ampicillin S 4 F Susceptible <=8 , Intermediate >8 , Resistant >16 Cefazolin S <=4 F Susceptible 0-16 , Intermediate <0 or >16 , Resistant >16 For uncomplicated urinary tract infections, cefazolin results can be used to predict susceptibility or resistance to cephalexin. Ceftriaxone S <=1 F Susceptible <=1 , Intermediate >1 , Resistant >=4 Cefepime S <=1 F Susceptible <=2 , Susceptible-Dose Dependent >2 , Resistant >=16 Ertapenem S <=0.5 F Susceptible <=0.5 , Intermediate >.5 , Resistant >1 Meropenem S <=0.25 F Susceptible <=1 , Intermediate >1 , Resistant >2 Ampicillin/Sulbact S <=2 F Susceptible <=8 , Intermediate >8 , Resistant >16 Piperacillin/Tazobac S <=4 F Susceptible <16 , Susceptible-Dose Dependent >=16 , Resistant >=32 Gentamicin S <=1 F Susceptible <=2 , Intermediate >2 , Resistant >=8 Tobramycin S <=1 F Susceptible <4 , Intermediate >=4 , Resistant >=8 Trimeth sulfameth S <=20 F Susceptible <=40 , Resistant >40 Ciprofloxacin S <=0.25 F Susceptible <0.5 , Intermediate >=.5 , Resistant >=1 Nitrofurantoin S 32 F Susceptible <=32 , Intermediate >32 , Resistant >64 Abnormal [facility] Comment on above: Performed By: #### 6 30-4 ####[facility] LABIA [id number] [address] [facility] -------- MADHURI PAULSON ([id number]) 2000 F T Date Time Provider Department 10/14/24 JUAN MANUEL ANTONIO [facility] During your visit today, we recorded the following information about you: Deanne Smallwood MA 10/14/2024 11:39 AM Signed See ebookpie message below: [facility] Dr. Antonio?s office. I stopped in this morning to give a urine sample for a culture. I just wanted to let you know so you can be aware of it. I?ve had 6 UTI?s this year so far and I woke up this morning and it appears I may have another one or the last one just never got cleared. I?m having a lot of GI issues currently which I believe could be the reason but I just wanted you guys to be aware so you can watch and see if it?s another UTI. Thanks! Josef Monaco PA-C 10/15/2024 11:00 AM Signed Please let patient know that her urine did look like another UTI, awaiting culture results. I reviewed her last cultures and have been sensitive to macrobid. It looks like she was treated with keflex with this last infection. I will send a prescription for macrobid to the pharmacy for her to get started. We will notify her if her urine culture does not show a clear infection or if we have to switch the antibiotic. I would advise see urology for further evaluation. Please help schedule. I see she already has a consult. The following approved medication requests have been transmitted electronically. Requested Prescriptions Signed Prescriptions Disp Refills nitrofurantoin monohydrate and macrocrystal (MACROBID) 100 mg capsule 14 capsule 0 Sig: Take 1 capsule by mouth two times a day for 7 days. Authorizing Provider: JOSEF MONACO PA-C Detwiler-Green, Susan LPN 10/15/2024 12:49 PM Signed Pt. informed via My Chart. Allergies As of Date: 10/14/2024 Noted Allergy Reaction BANANA 10/05/2010 16 - Unknown Comments: Per diagnosis LATEX 10/18/2002 16 - Unknown Comments: Per diagnosis Date Reviewed: 10/03/2024 Reviewed by: Harvey Dang RN - Fully Assessed Order(s):nitrofurantoin monohydrate and macrocrystal (MACROBID) 100 mg capsuleTake 1 capsule by mouth two times a day for 7 days.Disp: 14 capsuleRfl: 0 Prescriptions as of 10/15/2024 - nitrofurantoin monohydrate and macrocrystal (MACROBID) 100 mg capsule Take 1 capsule by mouth two times a day for 7 days. - Phentermine HCl 37.5 mg tablet Take 1 tablet by mouth every afternoon. - Drospirenone-Ethinyl Estradiol (PHILIP, 28,) 3-0.02 mg per tablet Take 1 tablet by mouth once daily. Ok to skip placebo week and start on new pack of pills - metFORMIN (GLUCOPHAGE) 500 mg tablet Take 1 tablet by mouth daily with dinner. - Ascorbic Acid 1,000 mg tablet Take 1 tablet by mouth once daily. - albuterol HFA (PROVENTIL HFA, VENTOLIN HFA) 90 mcg/actuation inhaler Inhale 2 Puffs as instructed. - Catheter (FEMALE CATHETER) 14 Fr misc 14 Chilean, 16 inch female straight tip intermittent catheter, to use q6 hrs prn urinary retention - B.animalis,bifid,infanti s,long (PROBIOTIC 4X ORAL) Take 1 capsule by mouth once daily. 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] 10/11/2010 Constipation [K59.00] 02/18/2014 Abnormality of gait [R26.9] 03/03/2015 Thoracic outlet syndrome [G54.0] 09/17/2018 Scapulothoracic bursitis of right shoulder [M75*01/21/2019 Acute pain of right shoulder [M25.511] 01/21/2019 06/29/2020 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 Encounter Status:Closed by ALECIA GUARDADO LPN on 10/15/24 Normal [facility] Urinalysis complete panel (U )on 10-14-2024 BACTERIA UL 4572.9 uL High Negative [facility] Comment on above: Order Comment: Speci men Type: URINE SPECIMENOrdering Facility: [facility] Address: [address] [place] [address] Performed By: #### 2 4356-8 ####[facility] LABCLIA [id number] [place] [address] [place] Bilirubin Ql (U) Negative Normal Negative [facility] Comment on above: Order Comment: Speci men Type: URINE SPECIMENOrdering Facility: [facility] Address: [address] [place] [address] Performed By: #### 2 4356-8 ####[facility] LABIA [id number] [place] [address] [place] Clarity (Unsp spec) Clear Normal Clear [facility] Comment on above: Order Comment: Speci men Type: URINE SPECIMENOrdering Facility: [facility] Address: [address] [place] [address] Performed By: #### 2 4356-8 ####[facility] LABCLIA [id number] [place] [address] [place] Color (U) Yellow Normal Yellow [facility] Comment on above: Order Comment: Speci men Type: URINE SPECIMENOrdering Facility: [facility] Address: [address] [place] [address] Performed By: #### 2 4356-8 ####[facility] LABCLIA [id number] [place] [address] [place] Epithelial cells LM.HPF (Urine sed) [#/Area] Many Normal [facility] Comment on above: Order Comment: Speci men Type: URINE SPECIMENOrdering Facility: [facility] Address: [address] [place] [address] Performed By: #### 2 4356-8 ####[facility] LABCLIA [id number] [address] [place] [address] [place] Glucose Test strip (U) [Mass/Vol] Negative Normal Negative [facility] Comment on above: Order Comment: Speci men Type: URINE SPECIMENOrdering Facility: [facility] Address: [address] [place] [address] Performed By: #### 2 4356-8 ####[facility] LABCLIA [id number] [address], [place] [address] [place] Hemoglobin Ql (U) Negative Normal Negative [facility] Comment on above: Order Comment: Speci men Type: URINE SPECIMENOrdering Facility: [facility] Address: [address] [place] [address] Performed By: #### 2 4356-8 ####[facility] LABCLIA [id number] [place] [address] [place] Hyaline casts (Urine sed) [#/Area] 1-3 /LPF Abnormal 0 /LPF [facility] Comment on above: Order Comment: Speci men Type: URINE SPECIMENOrdering Facility: [facility] Address: [address] [place] [address] Performed By: #### 2 4356-8 ####[facility] LABCLIA [id number] [place] [id number] [place] Ketones Ql (U) Trace Abnormal Negative [facility] Comment on above: Order Comment: Speci men Type: URINE SPECIMENOrdering Facility: [facility] Address: [address] [place] [address] Performed By: #### 2 4356-8 ####[facility] LABCLIA [id number] [place] [address] [place] Leukocyte esterase Test strip Ql (U) 1+ Abnormal Negative [facility] Comment on above: Order Comment: Speci men Type: URINE SPECIMENOrdering Facility: [facility] Address: [address] [place] [address] Performed By: #### 2 4356-8 ####[facility] LABIA [id number] [place] [address] [place] Nitrite Ql (U) Negative Normal Negative [facility] Comment on above: Order Comment: Speci men Type: URINE SPECIMENOrdering Facility: [facility] Address: [address] [place] [address] Performed By: #### 2 4356-8 ####[facility] LABIA [id number] [place] [address] [place] pH (U) 7.0 [pH] Normal <8.5 [facility] Comment on above: Order Comment: Speci men Type: URINE SPECIMENOrdering Facility: [facility] Address: [address] [place] [address] Performed By: #### 2 4356-8 ####[facility] LABIA [id number] [place] [address] [place] Protein (U) [Mass/Vol] 1+ Abnormal Negative [facility] Comment on above: Order Comment: Speci men Type: URINE SPECIMENOrdering Facility: [facility] Address: [address] [place] [address] Performed By: #### 2 4356-8 ####[facility] LABIA [id number] [place] [address] [place] RBC LM.HPF (Urine sed) [#/Area] 0-2 /HPF Normal 0-2 /HPF [facility] Comment on above: Order Comment: Speci men Type: URINE SPECIMENOrdering Facility: [facility] Address: [address] [place] [address] Performed By: #### 2 4356-8 ####[facility] LABIA [id number] [place] [address] [place] Specific gravity (U) [Rel density] 1.024 Normal 1.005-1.030 [facility] Comment on above: Order Comment: Speci men Type: URINE SPECIMENOrdering Facility: [facility] Address: [address] [place] [address] Performed By: #### 2 4356-8 ####[facility] [id number] [place] [address] [place] Urobilinogen Ql (U) 1.0 EU/dL Normal 0.2-1.0 EU/dL [facility] Comment on above: Order Comment: Speci men Type: URINE SPECIMENOrdering Facility: [facility] Address: [address] [place] [address] Performed By: #### 2 4356-8 ####[facility] [id number] [place] [address] [place] WBC LM.HPF (Urine sed) [#/Area] /[HPF] Abnormal 0-5 /HPF [facility] Comment on above: Order Comment: Speci men Type: URINE SPECIMENOrdering Facility: [facility] Address: [address] [place] [address] Performed By: #### 2 4356-8 ####[facility] LABIA [id number] [place] [address] [place] Yeast.budding LM.HPF (Urine sed) [#/Area] Present Abnormal None Seen [facility] Comment on above: Order Comment: Speci men Type: URINE SPECIMENOrdering Facility: [facility] Address: [address] [place] [address] Performed By: #### 2 4356-8 ####[facility] LABIA [id number] [address] .Auto Diffon 10-09-2024 Basophil, Absolute 0.1 10 3/mcL Normal 0.0-0.3 [facility] Comment on above: Performed By: #### C BC, ADIFF, ANEU, GFR, MDW, CMP, LIP #### [address] [address] Basophils/100 WBC (Bld) 0.5 % Normal 0.0-2.5 [facility] Comment on above: Performed By: #### C BC, ADIFF, ANEU, GFR, MDW, CMP, LIP #### [address] [address] Eosinophil, Absolute 0.2 10 3/mcL Normal 0.0-0.7 [facility] Comment on above: Performed By: #### C BC, ADIFF, ANEU, GFR, MDW, CMP, LIP #### [address] [address] Eosinophils/100 WBC (Bld) 1.5 % Normal 0.0-6.0 [facility] Comment on above: Performed By: #### C BC, ADIFF, ANEU, GFR, MDW, CMP, LIP #### [address] [address] Lymphocyte, Absolute 3.4 10 3/mcL Normal 0.9-4.3 [facility] Comment on above: Performed By: #### C BC, ADIFF, ANEU, GFR, MDW, CMP, LIP #### [address] [address] Lymphocytes/100 WBC (Bld) 31.9 % Normal 20.0-40.0 [facility] Comment on above: Performed By: #### C BC, ADIFF, ANEU, GFR, MDW, CMP, LIP #### [address] [address] Monocyte, Absolute 0.6 10 3/mcL Normal 0.1-1.4 [facility] Comment on above: Performed By: #### C BC, ADIFF, ANEU, GFR, MDW, CMP, LIP #### [address] [address] Monocytes/100 WBC (Bld) 5.3 % Normal 2.0-13.0 [facility] Comment on above: Performed By: #### C BC, ADIFF, ANEU, GFR, MDW, CMP, LIP #### [address] [address] Neutrophils/100 WBC (Bld) 60.8 % Normal 50.0-75.0 [facility] Comment on above: Performed By: #### C BC, ADIFF, ANEU, GFR, MDW, CMP, LIP #### [address] [address] .GFRon 10-09-2024 GFR/1.73 sq M.predicted among non-blacks MDRD (S/P/Bld) [Vol rate/Area] mL/min/{1.73_m2} Normal [facility] Comment on above: Result Comment: Stages of Chronic Kidney Disease (CKD) Stage Description eGFR(ml/min/1.73 sq.m.) CKD 1 Normal kidney function or >=90 normal kindney function with possible kidney damage (ex. Proteinuria) CKD 2 Kidney damage with mild loss 60-89 of kidney function CKD 3a Mild to moderate loss of kidney 45-59 function CKD 3b Moderate to severe loss of 30-44 of kindey function CKD 4 Severe loss of kidney function 15-29 CKD 5 Kidney failure <15 Note: (go live 2024) the eGFR calculation was updated to the 2020 CKD-EPI creatinine equation without a race factor to calculate the eGFR results. Performed By: #### C BC, ADIFF, ANEU, GFR, MDW, CMP, LIP #### [address] [address] .MDWon 10-09-2024 Monocyte Distribution Width 16.92 Normal 0.00-20.00 [facility] Comment on above: Result Comment: For ED adult patients suspected of sepsis, MDW<=20.0 does not rule out sepsis or risk of sepsis Performed By: #### C BC, ADIFF, ANEU, GFR, MDW, CMP, LIP #### [address] [address] .NEUABSon 10-09-2024 Neutrophil, Absolute 6.6 10 3/mcL Normal 2.3-8.1 [facility] Comment on above: Performed By: #### C BC, ADIFF, ANEU, GFR, MDW, CMP, LIP #### [place] [id number] CBCon 10-09-2024 Erythrocyte distribution width (RBC) [Ratio] 15.0 % Normal 11.5-15.5 [facility] Comment on above: Performed By: #### C BC, ADIFF, ANEU, GFR, MDW, CMP, LIP #### [place] [address] Hematocrit (Bld) [Volume fraction] 36.4 % Normal 34.0-46.0 [facility] Comment on above: Performed By: #### C BC, ADIFF, ANEU, GFR, MDW, CMP, LIP #### [place] [address] Hgb 12.2 G/dL Normal 12.0-16.0 [facility] Comment on above: Performed By: #### C BC, ADIFF, ANEU, GFR, MDW, CMP, LIP #### [place] [address] MCH (RBC) [Entitic mass] 28.1 pg Normal 27.0-33.0 [facility] Comment on above: Performed By: #### C BC, ADIFF, ANEU, GFR, MDW, CMP, LIP #### [place] [address] MCHC 33.6 G/dL Normal 32.0-36.0 [facility] Comment on above: Performed By: #### C BC, ADIFF, ANEU, GFR, MDW, CMP, LIP #### [place] [address] MCV (RBC) [Entitic vol] 83.6 fL Normal 80.0-99.0 [facility] Comment on above: Performed By: #### C BC, ADIFF, ANEU, GFR, MDW, CMP, LIP #### [place] [address] Platelet 336 10 3/mcL Normal 150-450 [facility] Comment on above: Performed By: #### C BC, ADIFF, ANEU, GFR, MDW, CMP, LIP #### [place] [address] Platelet mean volume (Bld) [Entitic vol] 8.5 fL Normal 6.6-10.5 [facility] Comment on above: Performed By: #### C BC, ADIFF, ANEU, GFR, MDW, CMP, LIP #### [place] [address] RBC 4.35 10 6/mcL Normal 4.10-5.30 [facility] Comment on above: Performed By: #### C BC, ADIFF, ANEU, GFR, MDW, CMP, LIP #### [place] [address] WBC 10.8 10 3/mcL Normal 4.5-10.8 [facility] Comment on above: Performed By: #### C BC, ADIFF, ANEU, GFR, MDW, CMP, LIP #### [place] [address] CMPon 10-09-2024 Albumin Level 3.6 G/dL Normal 3.2-4.8 [facility] Comment on above: Performed By: #### C BC, ADIFF, ANEU, GFR, MDW, CMP, LIP #### [place] [address] Albumin/Globulin [Mass ratio] 1.2 {ratio} Normal 0.9-1.6 [facility] Comment on above: Performed By: #### C BC, ADIFF, ANEU, GFR, MDW, CMP, LIP #### [place] [id number] ALP [Catalytic activity/Vol] 72 U/L Normal 38-126 [facility] Comment on above: Performed By: #### C BC, ADIFF, ANEU, GFR, MDW, CMP, LIP #### [place] [address] ALT [Catalytic activity/Vol] 20 U/L Normal 10-49 [facility] Comment on above: Performed By: #### C BC, ADIFF, ANEU, GFR, MDW, CMP, LIP #### [address] [address] AST [Catalytic activity/Vol] 25 U/L Normal 8-34 [facility] Comment on above: Performed By: #### C BC, ADIFF, ANEU, GFR, MDW, CMP, LIP #### [address] [address] Bili Total <0.20 Normal 0.20-1.20 [facility] Comment on above: Result Comment: Use of this assay is not recommended for patients undergoing treatment with eltrombopag due to the potential for falsely elevated results. Performed By: #### C BC, ADIFF, ANEU, GFR, MDW, CMP, LIP #### [address] [address] BUN/Creatinine Ratio 25.4 ratio High 10.0-22.0 [facility] Comment on above: Performed By: #### C BC, ADIFF, ANEU, GFR, MDW, CMP, LIP #### [address] [address] Calcium [Mass/Vol] 8.8 mg/dL Normal 8.7-10.4 [facility] Comment on above: Performed By: #### C BC, ADIFF, ANEU, GFR, MDW, CMP, LIP #### [address] [address] Chloride [Moles/Vol] 106 mmol/L Normal 98-110 [facility] Comment on above: Performed By: #### C BC, ADIFF, ANEU, GFR, MDW, CMP, LIP #### [address] [address] CO2 [Moles/Vol] 23 mmol/L Normal 22-32 [facility] Comment on above: Performed By: #### C BC, ADIFF, ANEU, GFR, MDW, CMP, LIP #### [address] [address] Creatinine [Mass/Vol] 0.59 mg/dL Normal 0.50-1.20 [facility] Comment on above: Result Comment: Test ing performed on Plexxi analyzer using enzymatic creatinine methodology. Performed By: #### C BC, ADIFF, ANEU, GFR, MDW, CMP, LIP #### [address] [address] Electrolyte Balance 10.0 mEq/L Normal 4.0-15.0 [facility] Comment on above: Performed By: #### C BC, ADIFF, ANEU, GFR, MDW, CMP, LIP #### [address] [address] Globulin 3.0 G/dL Normal 1.5-3.8 [facility] Comment on above: Performed By: #### C BC, ADIFF, ANEU, GFR, MDW, CMP, LIP #### [address] [address] Glucose [Mass/Vol] 137 mg/dL High 70-110 [facility] Comment on above: Performed By: #### C BC, ADIFF, ANEU, GFR, MDW, CMP, LIP #### [address] [address] Potassium [Moles/Vol] 3.5 mmol/L Normal 3.5-5.0 [facility] Comment on above: Performed By: #### C BC, ADIFF, ANEU, GFR, MDW, CMP, LIP #### [address] [address] Sodium [Moles/Vol] 139 mmol/L Normal 136-145 [facility] Comment on above: Performed By: #### C BC, ADIFF, ANEU, GFR, MDW, CMP, LIP #### [address] [address] Total Protein 6.6 G/dL Normal 5.7-8.2 [facility] Comment on above: Performed By: #### C BC, ADIFF, ANEU, GFR, MDW, CMP, LIP #### [address] [address] Urea nitrogen [Mass/Vol] 15.0 mg/dL Normal 8.0-22.0 [facility] Comment on above: Performed By: #### C SANYA, DELISA, BRETT, GFR, MDW, CMP, LIP #### [place] [id number] [address] [place] [address] Rufina 10-09-2024 CNPN Telephone (FAMPWS) -------- MADHURI PAULSON ([id number]) 2000 F CHT Date Time Provider Department 10/09/24 [facility] During your visit today, we recorded the following information about you: Diana Boggs RN 10/09/2024 2:59 PM Signed Patient has 3 month follow up scheduled with Dr. Antonio on 10/14/24, which was made this past July. Recently, pt has had 2 recent ER visits, one on 10/03 (headache) and one today 10/09 (abd pain). Pt reports she will be following up with Neuro and Gastro, as recommended by ER. Can patient keep her 10/14 (20 MIN) appt, or does she need to reschedule for an ER F/U? Pt requesting to see Dr. Antonio and there are no ER F/U slots open with her, until 12/04/24 at this time. Please advise. JUDE Avilez Rebekah, APRN.FANNY 10/11/2024 10:45 AM Signed No, this must be a 40 minute appt. Jill Munson APRN.[place]velia [place] 10/11/2024 1:24 PM Signed Left message for patient to return call. When she calls, please schedule ER follow up with PCP Team SYLWIA. Jaylene Rosen 10/13/2024 10:49 AM Signed Patient is already scheduled 10/25/24 Allergies As of Date: 10/09/2024 Noted Allergy Reaction BANANA 10/05/2010 16 - Unknown Comments: Per diagnosis LATEX 10/18/2002 16 - Unknown Comments: Per diagnosis Date Reviewed: 10/03/2024 Reviewed by: Harvey Dang RN - Fully Assessed Reason for Visit: Patient Question [7147] Patient Update [9974] Prescriptions as of 10/16/2024 - ciprofloxacin HCl (CIPRO) 500 mg tablet Take 1 tablet by mouth two times a day for 7 days. - Phentermine HCl 37.5 mg tablet Take 1 tablet by mouth every afternoon. - Drospirenone-Ethinyl Estradiol (PHILIP, 28,) 3-0.02 mg per tablet Take 1 tablet by mouth once daily. Ok to skip placebo week and start on new pack of pills - metFORMIN (GLUCOPHAGE) 500 mg tablet Take 1 tablet by mouth daily with dinner. - Ascorbic Acid 1,000 mg tablet Take 1 tablet by mouth once daily. - albuterol HFA (PROVENTIL HFA, VENTOLIN HFA) 90 mcg/actuation inhaler Inhale 2 Puffs as instructed. - Catheter (FEMALE CATHETER) 14 Fr misc 14 Chilean, 16 inch female straight tip intermittent catheter, to use q6 hrs prn urinary retention - B.animalis,bifid,infanti s,long (PROBIOTIC 4X ORAL) Take 1 capsule by mouth once daily. 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] 10/11/2010 Constipation [K59.00] 02/18/2014 Abnormality of gait [R26.9] 03/03/2015 Thoracic outlet syndrome [G54.0] 09/17/2018 Scapulothoracic bursitis of right shoulder [M75*01/21/2019 Acute pain of right shoulder [M25.511] 01/21/2019 06/29/2020 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] Lymphedema [I89.0] Neurogenic bowel [K59.2] 06/20/2016 Obese [E66.9] Obesity, Class I, BMI 30-34.9 [E66.811] 12/15/2023 S/P brain surgery [Z98.890] 12/15/2023 Postoperative pain [G89.18] 12/18/2023 Routine physical examination [Z00.00] 12/27/2023 Recurrent UTI (urinary tract infection) [N39.0] 07/16/2024 Dysmenorrhea [N94.6] 07/16/2024 Neurogenic bladder [N31.9] 07/16/2024 Encounter Status:Closed by DIANA BOGGS on 10/16/[address] [facility] [address] ABD/PELVIS W/ IV CONTRAST ONLYon 10-09-2024 CT ABD/PELVIS W/ IV CONTRAST ONLY ORIGINAL EXAMINATION: CT OF THE ABDOMEN AND PELVIS WITH CONTRAST 10/09/2024 3:42 am TECHNIQUE: CT of the abdomen and pelvis was performed with the administration of intravenous contrast. Multiplanar reformatted images are provided for review. Automated exposure control, iterative reconstruction, and/or weight based adjustment of the mA/kV was utilized to reduce the radiation dose to as low as reasonably achievable. COMPARISON: None. HISTORY: ORDERING SYSTEM PROVIDED HISTORY: Reason for Exam: UPPER ABDOMEN PAIN x COUPLE HOURS, N/V, HX OF GASTROPARESIS abdominal pain FINDINGS: No acute osseous abnormality. 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 Included thoracic structures are unremarkable. Normal liver, gallbladder, spleen, pancreas, and adrenal glands. Symmetric nephrograms without evidence of hydronephrosis or nephrolithiasis. Nonaneurysmal abdominal aorta. No abdominal lymphadenopathy, free fluid, or intraperitoneal free air identified. No acute GI abnormality. Postsurgical changes of the mid abdomen. Under distended urinary bladder limiting evaluation. Small amount of fluid within the endometrial canal likely physiologic in a patient of this age. IMPRESSION: No acute findings to explain patient's symptoms. Lumbosacral spinal dysraphism with a meningocele. I have personally reviewed the images of this examination, and agree with the resident's findings and interpretation. Interpreted by: Tim Garduno MD Preliminary Report By: Minesh Tavarez Electronically signed By Tim Garduno MD Dictated Date: 10/09/2024 3:43:54 AM Prelim Date: 10/09/2024 3:52:49 AM Sign Date: 10/09/2024 4:00:08 AM Ordering Provider: ALEX [place] [facility] LABORATORYOrdered By: Jessica Cuevas on 10-09-2024 Beta HCG ( test) Ql (U) Negative (10/09/24 3:27 AM) [facility] Work Phone: Urine Preg POC Confirmation Sent to lab (10/09/24 3:27 AM) [facility] Work Phone: LABORATORYOrdered By: Chaparro Tavarez on 10-09-2024 Appearance (U) Clear (10/09/24 3:22 AM) Normal Clear AH Auto Urine SS Bacteria LM.HPF (Urine sed) [#/Area] Trace /HPF Invalid Interpretation Code Negative AH Auto Urine SS Bilirubin Ql (U) Small 3 *ABN* (10/09/24 3:22 AM) Invalid Interpretation Code Neg-Trace AH Auto Urine SS Comment on above: Result Comment: Sugg est correlation with serum bilirubin and clinical findings if medically necessary. Calcium oxalate crystals LM.HPF (Urine sed) [#/Area] Trace /HPF Normal AH Auto Urine SS Color (U) Dark Yellow (10/09/24 3:22 AM) Normal AH Auto Urine SS Glucose Test strip (U) [Mass/Vol] Negative Normal Negative AH Auto Urine SS Hemoglobin Auto test strip (U) [Mass/Vol] Negative (10/09/24 3:22 AM) Normal Neg-Trace AH Auto Urine SS Ketones Ql (U) 15 mg/dL Invalid Interpretation Code Neg-Trace AH Auto Urine SS UA Leuk Est Small *ABN* (10/09/24 3:22 AM) Invalid Interpretation Code Negative AH Auto Urine SS UA Mucous 1+ /HPF Normal AH Auto Urine SS UA Nitrite Negative (10/09/24 3:22 AM) Normal Negative AH Auto Urine SS UA pH 5.5 (10/09/24 3:22 AM) Normal 5.0 - 8.0 AH Auto Urine SS UA Protein 30 mg/dL Normal Negative AH Auto Urine SS UA RBC Rare /HPF Normal 0-2 AH Auto Urine SS UA Spec Grav >=1.030 *ABN* (10/09/24 3:22 AM) Invalid Interpretation Code 1.006-1.029 AH Auto Urine SS UA Specimen Type Clean Catch (10/09/24 3:22 AM) Normal AH Auto Urine SS UA Squam Epithelial 0-2 /HPF Normal 0-20 AH Au to Urine SS UA Urobilinogen 1.0 E.U./dL Normal 0.2-1.0 AH Auto Urine SS WBC LM.HPF (Urine sed) [#/Area] 3-5 /HPF Normal 0-5 AH Auto Urine SS Yeast LM.HPF (Urine sed) [#/Area] Trace /HPF Invalid Interpretation Code AH Auto Urine SS LABORATORYOrdered By: SYSTEM SYSTEM on 10-09-2024 Albumin BCP dye [Mass/Vol] 3.6 G/dL Normal 3.2 - 4.8 G/dL AH ADM SS Albumin/Globulin [Mass ratio] 1.2 {ratio} Normal 0.9 - 1.6 ratio AH ADM SS ALP [Catalytic activity/Vol] 72 U/L Normal 38 - 126 U/L AH ADM SS ALT No additional P-5'-P [Catalytic activity/Vol] 20 U/L Normal 10 - 49 U/L AH ADM SS AST [Catalytic activity/Vol] 25 U/L Normal 8 - 34 U/L AH ADM SS Basophils (Bld) [#/Vol] 0.1 103/mcL Normal 0.0 - 0.3 10^3/mcL AH Workflow SS Basophils/100 WBC (Bld) 0.5 % Normal 0.0 - 2.5 % AH Workflow SS Bilirubin [Mass/Vol] mg/dL Normal 0.20 - 1.20 mg/dL AH ADM SS Comment on above: Interpretive Data: U se of this assay is not recommended for patients undergoing treatment with eltrombopag due to the potential for falsely elevated results. Calcium [Mass/Vol] 8.8 mg/dL Normal 8.7 - 10. 4 mg/dL AH ADM SS Chloride [Moles/Vol] 106 mmol/L Normal 98 - 11 0 mEq/L AH ADM SS CO2 [Moles/Vol] 23 mmol/L Normal 22 - 32 mEq/L ADM SS Creatinine [Mass/Vol] 0.59 mg/dL Normal 0.50 - 1.20 mg/dL ADM SS Comment on above: Interpretive Data: T esting performed on Plexxi analyzer using enzymatic creatinine methodology. Electrolyte Balance 10.0 mEq/L Normal 4.0 - 15 .0 mEq/L ADM SS Eosinophils (Bld) [#/Vol] 0.2 103/mcL Normal 0.0 - 0.7 10^3/mcL Workflow SS Eosinophils/100 WBC (Bld) 1.5 % Normal 0.0 - 6.0 % Workflow SS Erythrocyte distribution width (RBC) [Ratio] 15.0 % Normal 11.5 - 15.5 % Workflow SS Estimated Glomerular Filtration Rate ml/min/1.73sqm Invalid Interpretation Code ADM SS Comment on above: Interpretive Data: Stages of Chronic Kidney Disease (CKD) Stage Description eGFR(ml/min/1.73 sq.m.) CKD 1 Normal kidney function or >=90 normal kindney function with possible kidney damage (ex. Proteinuria) CKD 2 Kidney damage with mild loss 60-89 of kidney function CKD 3a Mild to moderate loss of kidney 45-59 function CKD 3b Moderate to severe loss of 30-44 of kindey function CKD 4 Severe loss of kidney function 15-29 CKD 5 Kidney failure <15 Note: (go live 2024) the eGFR calculation was updated to the 2020 CKD-EPI creatinine equation without a race factor to calculate the eGFR results. Globulin 3.0 G/dL Normal 1.5 - 3.8 G/dL ADM SS Glucose [Mass/Vol] 137 mg/dL High 70 - 110 mg/dL ADM SS Hematocrit (Bld) [Volume fraction] 36.4 % Normal 34.0 - 46.0 % Workflow SS Hemoglobin (Bld) [Mass/Vol] 12.2 G/dL Normal 12.0 - 16.0 G/dL Workflow SS Lipase [Catalytic activity/Vol] 50 U/L Normal 12 - 53 U/L ADM SS Comment on above: Interpretive Data: * *Note - New Reference Range in effect 20 Lymphocytes (Bld) [#/Vol] 3.4 103/mcL Normal 0.9 - 4.3 10^3/mcL AH Workflow SS Lymphocytes/100 WBC (Bld) 31.9 % Normal 20.0 - 40.0 % AH Workflow SS MCH (RBC) [Entitic mass] 28.1 pg Normal 27.0 - 33.0 pg AH Workflow SS MCHC 33.6 G/dL Normal 32.0 - 36.0 G/dL AH Workflow SS MCV (RBC) [Entitic vol] 83.6 fL Normal 80.0 - 99.0 fL AH Workflow SS Monocyte distribution width Auto (Bld) [Entitic vol] 16.92 1 Normal 0.00 - 20.00 AH Workflow SS Comment on above: Result Comment: For ED adult patients suspected of sepsis, MDW<=20.0 does not rule out sepsis or risk of sepsis Monocytes (Bld) [#/Vol] 0.6 103/mcL Normal 0.1 - 1.4 10^3/mcL AH Workflow SS Monocytes/100 WBC (Bld) 5.3 % Normal 2.0 - 13.0 % AH Workflow SS Neutrophils (Bld) [#/Vol] 6.6 103/mcL Normal 2.3 - 8.1 10^3/mcL AH Workflow SS Neutrophils/100 WBC (Bld) 60.8 % Normal 50.0 - 75.0 % AH Workflow SS Platelet mean volume (Bld) [Entitic vol] 8.5 fL Normal 6.6 - 10.5 fL AH Workflow SS Platelets (Bld) [#/Vol] 336 103/mcL Normal 150 - 450 10^3/mcL AH Workflow SS Potassium [Moles/Vol] 3.5 mmol/L Normal 3.5 - 5.0 mEq/L AH ADM SS Protein [Mass/Vol] 6.6 G/dL Normal 5.7 - 8.2 G/dL AH ADM SS RBC (Bld) [#/Vol] 4.35 106/mcL Normal 4.10 - 5.3 0 10^6/mcL AH Workflow SS Sodium [Moles/Vol] 139 mmol/L Normal 136 - 145 mEq/L AH ADM SS Urea nitrogen [Mass/Vol] 15.0 mg/dL Normal 8.0 - 22.0 mg/dL ADM SS Urea nitrogen/Creatinine [Mass ratio] 25.4 ratio High 10.0 - 22.0 ratio AH ADM SS WBC (Bld) [#/Vol] 10.8 103/mcL Normal 4.5 - 10.8 10^3/mcL AH Workflow SS LIPon 10-09-2024 Lipase Level 50 U/L Normal 12-53 [facility] Comment on above: Result Comment: No te - New Reference Range in effect 20 Performed By: #### C BC, ADIFF, ANEU, GFR, MDW, CMP, LIP #### [place] [address] UAon 10-09-2024 Color (U) Dark Yellow Normal [facility] Comment on above: Performed By: #### U AMIC, UA #### [place] [address] Glucose (U) [Mass/Vol] Negative Normal Negative [facility] Comment on above: Performed By: #### U AMIC, UA #### [place] [address] Ketones Ql (U) 15 mg/dL Abnormal Neg-Trace [facility] Comment on above: Performed By: #### U AMIC, UA #### [place] [address] UA Appear Clear Normal Clear [facility] Comment on above: Performed By: #### U AMIC, UA #### [place] [address] UA Bili Small Abnormal Neg-Trace [facility] Comment on above: Result Comment: Sugg est correlation with serum bilirubin and clinical findings if medically necessary. Performed By: #### U AMIC, UA #### [place] [address] UA Blood Negative Normal Neg-Trace [facility] Comment on above: Performed By: #### U AMIC, UA #### [place] [address] UA Leuk Est Small Abnormal Negative [facility] Comment on above: Performed By: #### U AMIC, UA #### [place] [address] UA Nitrite Negative Normal Negative [facility] Comment on above: Performed By: #### U AMIC, UA #### [place] [address] UA pH 5.5 Normal 5.0 - 8.0 [facility] Comment on above: Performed By: #### U AMIC, UA #### [place] [address] UA Protein 30 mg/dL Normal Negative [facility] Comment on above: Performed By: #### U AMIC, UA #### [place] [address] UA Spec Grav >=1.030 Abnormal 1.006-1.029 [facility] Comment on above: Performed By: #### U AMIC, UA #### [place] [address] UA Specimen Type Clean Catch Normal [facility] Comment on above: Performed By: #### U AMIC, UA #### [place] [address] UA Urobilinogen 1.0 E.U./dL Normal 0.2-1.0 [facility] Comment on above: Performed By: #### U AMIC, UA #### [place] [address] UAMICon 10-09-2024 UA Bacteria Trace Abnormal Negative [facility] Comment on above: Performed By: #### U AMIC, UA #### [place] [address] UA CA Ox Crystal Trace Normal [facility] Comment on above: Performed By: #### U AMIC, UA #### [place] [address] UA Mucous 1+ /hpf [facility] Comment on above: Performed By: #### U AMIC, UA #### [place] [address] UA RBC Rare Normal 0-2 [facility] Comment on above: Performed By: #### U AMIC, UA #### [place] [address] UA Squam Epithelial 0-2 Normal 0-20 [facility] Comment on above: Performed By: #### U AMIC, UA #### [facility] [address] [place] [id number] UA WBC 3-5 Normal 0-5 [facility] Comment on above: Performed By: #### U AMIC, UA #### [facility] [address] [place] [address] UA Yeast Trace Abnormal [facility] Comment on above: Performed By: #### U AMIC, UA #### [facility] [address] [place] [id number] CNPNon 10-04-2024 CNPN Telephone (NSCAMN) -------- MADHURI PAULSON ([id number]) 2000 F T Date Time Provider Department 10/04/24 ALECIA GALLEGOS NSCAMN During your visit today, we recorded the following information about you: CrissyAdy carsonsimone 10/04/2024 4:16 PM Signed General Call Caller : patient Contact Reason for Call : Patient calling to let office know that yesterday she had the worst headache she has had since surgery. Then started having severe neck pain mid afternoon and couldn't turn left. She went to the ER they did a CT Scan. She said when they pressed on the incision site the the pressure radiated upwards. Would like the office to review the ER notes and CT scan. Patient requesting return call ? Yes Allergies As of Date: 10/04/2024 Noted Allergy Reaction BANANA 10/05/2010 16 - Unknown Comments: Per diagnosis LATEX 10/18/2002 16 - Unknown Comments: Per diagnosis Date Reviewed: 10/03/2024 Reviewed by: Harvey Dang, JUDE - Fully Assessed Reason for Visit: Patient Update [1234] Primary Visit Diagnosis:Chiari I malformation (HCC) [G93.5] Prescriptions as of 10/07/2024 - fluconazole (DIFLUCAN) 150 mg tablet Take 1 tablet by mouth one time only for 1 dose. If symptoms still persist after 3 days, go ahead and repeat this x 1 more dose. - nitrofurantoin monohydrate and macrocrystal (MACROBID) 100 mg capsule Take 1 capsule by mouth two times a day for 7 days. - Phentermine HCl 37.5 mg tablet Take 1 tablet by mouth every afternoon. - Drospirenone-Ethinyl Estradiol (PHILIP, 28,) 3-0.02 mg per tablet Take 1 tablet by mouth once daily. Ok to skip placebo week and start on new pack of pills - metFORMIN (GLUCOPHAGE) 500 mg tablet Take 1 tablet by mouth daily with dinner. - Ascorbic Acid 1,000 mg tablet Take 1 tablet by mouth once daily. - albuterol HFA (PROVENTIL HFA, VENTOLIN HFA) 90 mcg/actuation inhaler Inhale 2 Puffs as instructed. - Catheter (FEMALE CATHETER) 14 Fr misc 14 [place]an, 16 inch female straight tip intermittent catheter, to use q6 hrs prn urinary retention - B.animalis,bifid,infanti s,long (PROBIOTIC 4X ORAL) Take 1 capsule by mouth once daily. 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] 10/11/2010 Constipation [K59.00] 02/18/2014 Abnormality of gait [R26.9] 03/03/2015 Thoracic outlet syndrome [G54.0] 09/17/2018 Scapulothoracic bursitis of right shoulder [M75*01/21/2019 Acute pain of right shoulder [M25.511] 01/21/2019 06/29/2020 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] Lymphedema [I89.0] Neurogenic bowel [K59.2] 06/20/2016 Obese [E66.9] Obesity, Class I, BMI 30-34.9 [E66.811] 12/15/2023 S/P brain surgery [Z98.890] 12/15/2023 Postoperative pain [G89.18] 12/18/2023 Routine physical examination [Z00.00] 12/27/2023 Recurrent UTI (urinary tract infection) [N39.0] 07/16/2024 Dysmenorrhea [N94.6] 07/16/2024 Neurogenic bladder [N31.9] 07/16/2024 Encounter Status:Closed by ALECIA GALLEGOS on 10/07/24 Normal [facility] ALLIED HEALTHon 10-03-2024 ALLIED HEALTH HNO ID: [id number] Author: JOSIE FLORES RT(R) Service: Radiology Author Type: Tool Grinding Technician Type: Allied Health Filed: 10/03/2024 21:29 Note Text: Radiology Service Progress Note PATIENT NAME: Madhuri Paulson DATE OF SERVICE: October 03, 2024 TIME: 9:29 PM PATIENT IDENTITY VERIFICATION COMPLETED USING TWO (2) IDENTIFIERS: Name and Date of confirmed by patient verbally. FALL SCREENING: Has the patient had 2 falls in the last year or 1 fall with injury or currently using an Ambulatory Assistive Device (Walker, Cane, Wheelchair, Crutches, etc.)? No PATIENT GENDER DATA: Assigned female at . status: : No status: NO. PATIENT RELEVANT IMPLANT DATA REVIEWED: Not Applicable PATIENT PRESENTS WITH AN IMPLANTABLE OR ATTACHED ARCHITECTURAL ASSOCIATE: No RADIOLOGY DEPARTMENT: CT; Exam(s) Completed: Brain and C SPINE PERIPHERAL IV DATA: Inpatient: see LDA documentation SIGNED BY: RT Andrew(R) October 03, 2024 9:29 PM Normal [facility] CT BRAIN WO IVCONon 10-04-19 CT BRAIN WO IVCON * * *Final Report* * * DATE OF EXAM: Oct 03 2024 9:39PM [facility] 0504 - CT BRAIN WO IVCON / PROCEDURE REASON: Headache, sudden, severe * * * * Physician Interpretation * * * * EXAMINATION: CT BRAIN WO IVCON, CT CERVICAL SPINE WO IVCON CLINICAL HISTORY: TECHNIQUE: CT head and cervical spine without contrast. MQ: CTBCSWO_3 CT Radiation dose: Integrated Dose-Length Product (DLP) for this visit = 1048.04 mGy*cm CT Dose Reduction Employed: Automated exposure control(AEC) and iterative recon COMPARISON: MRI brain 05/05/2023, MRI cervical spine 05/06/2024. RESULT: Post-operative change: None. Acute change: No evidence of an acute infarct or other acute parenchymal process. Hemorrhage: No evidence of acute intracranial hemorrhage. ECASS hemorrhagic transformation score: Not Applicable Mass Lesion / Mass Effect: There is no evidence of an intracranial mass or extraaxial fluid collection. No significant mass effect. Unchanged ventricle size brain volume, and otherwise overall intracranial appearance to MRI comparison with again morphologic findings consistent with tuberous sclerosis Paranasal sinuses and skull base: The visualized paranasal sinuses are grossly clear. The skull base and imaged soft tissues are unremarkable. Unchanged alignment and appearance of the cervical spine to MRI comparison May 2024 with no new individual level interval increase of central canal or foraminal stenosis. Additionally, posterior midline fluid from decompressive craniectomy is overall roughly similar in appearance to comparison. No pneumothorax of the included lung apex. A few somewhat prominent but nonpathologically enlarged right level 3 lymph nodes and also less so but bilateral level 2 lymph nodes which are nonspecific but presumably reactive. Included lung son are clear without findings to suggest pneumothorax. Localizer images: IMPRESSION: No acute intracranial abnormality. No acute cervical spine fracture. Other incidental findings as above. Unchanged ventricle size brain volume, and otherwise overall intracranial appearance to MRI comparison with again morphologic findings consistent with tuberous sclerosis Bilingual Case Manager: PSCB Transcribe Date/Time: Oct 03 2024 9:56P Dictated by : DAHIANA FERNANDO MD This examination was interpreted and the report reviewed and electronically signed by: DAHIANA FERNANDO MD on Oct 03 2024 10:07PM EST [id number] Normal [facility] CT CERVICAL SPINE WO IVCONon 10-03-2024 CT CERVICAL SPINE WO IVCON * * *Final Report* * * DATE OF EXAM: Oct 03 2024 9:40PM [facility] 0505 - CT CERVICAL SPINE WO IVCON / PROCEDURE REASON: Neck trauma, midline tenderness (Age 16-64y) * * * * Physician Interpretation * * * * EXAMINATION: CT BRAIN WO IVCON, CT CERVICAL SPINE WO IVCON CLINICAL HISTORY: TECHNIQUE: CT head and cervical spine without contrast. MQ: CTBCSWO_3 CT Radiation dose: Integrated Dose-Length Product (DLP) for this visit = 1048.04 mGy*cm CT Dose Reduction Employed: Automated exposure control(AEC) and iterative recon COMPARISON: MRI brain 05/05/2023, MRI cervical spine 05/06/2024. RESULT: Post-operative change: None. Acute change: No evidence of an acute infarct or other acute parenchymal process. Hemorrhage: No evidence of acute intracranial hemorrhage. ECASS hemorrhagic transformation score: Not Applicable Mass Lesion / Mass Effect: There is no evidence of an intracranial mass or extraaxial fluid collection. No significant mass effect. Unchanged ventricle size brain volume, and otherwise overall intracranial appearance to MRI comparison with again morphologic findings consistent with tuberous sclerosis Paranasal sinuses and skull base: The visualized paranasal sinuses are grossly clear. The skull base and imaged soft tissues are unremarkable. Unchanged alignment and appearance of the cervical spine to MRI comparison May 2024 with no new individual level interval increase of central canal or foraminal stenosis. Additionally, posterior midline fluid from decompressive craniectomy is overall roughly similar in appearance to comparison. No pneumothorax of the included lung apex. A few somewhat prominent but nonpathologically enlarged right level 3 lymph nodes and also less so but bilateral level 2 lymph nodes which are nonspecific but presumably reactive. Included lung son are clear without findings to suggest pneumothorax. Localizer images: IMPRESSION: No acute intracranial abnormality. No acute cervical spine fracture. Other incidental findings as above. Unchanged ventricle size brain volume, and otherwise overall intracranial appearance to MRI comparison with again morphologic findings consistent with tuberous sclerosis Bilingual Case Manager: [email or web address] Transcribe Date/Time: Oct 03 2024 9:56P Dictated by : DAHIANA FERNANDO MD This examination was interpreted and the report reviewed and electronically signed by: DAHIANA FERNANDO MD on Oct 03 2024 10:07PM EST [id number] Normal [facility] ECG COMPLETEon 10-03-2024 ECG COMPLETE Ventricular Rate : 1 19 BPM Atrial Rate : 119 BPM P-R Interval : 140 ms QRS Duration : 72 ms Q-T Interval : 318 ms QTC Calculation(Bazett) : 447 ms Calculated P Butler : 25 degrees Calculated R Butler : 49 degrees Calculated T Butler : 29 degrees SINUS TACHYCARDIA OTHERWISE NORMAL ECG NO PREVIOUS ECGS AVAILABLE Confirmed by CRUZ SIMEON MD ([id number]) on 10/05/2024 10:38:15 AM NAME : MADHURI PAULSON PID : [id number] : 2000 Gender : Female Race : ORD : [id number] Procedure Date : Oct 03 2024 21:28:16 Edit Date : Oct 05 2024 10:38:16 Diagnosis: SINUS TACHYCARDIA OTHERWISE NORMAL ECG NO PREVIOUS ECGS AVAILABLE Confirmed by CRUZ SIMEON MD ([id number]) on 10/05/2024 10:38:15 AM Test Reason : Chest Pain Location : 153 : [facility] ED Overread By : CRUZ SIMEON MD Edited By : CRUZ SIMEON MD Referred By : , Acquired by : HARVEY DANG [facility] ED PROV NOTEon 10-03-2024 ED PROV NOTE HNO ID: [id number] Author: CHANDA CRESPO PA-C Service: Emergency Medicine Author Type: Physician Welfare Eligibility Worker Type: ED Provider Notes Filed: 10/03/2024 22:49 Note Text: ED Provider Note Patient Name: Madhuri Paulson : 2000 SERVICE DATE: 10/03/24 History Patient presents with: Headache: Pt c/o AGUERO that began 25 minutes [employer]. States that she was just sitting when it started. Hx of brain surgery. Denies recent injury/falls/trauma. Pt currently taking ATBs for UTI. C/o neck pain that began this afternoon. Pt arrives alert and oriented. HPI 23-year-old female presents with history of spina bifida and Chiari malformation type I with brain surgery to help reduce the fluid collection last December complaining of neck pain and headache beginning today. Patient states she woke up feeling no symptoms but throughout the day developed neck pain and was unable to turn her head mostly to the left. The pain 45 minutes prior to arrival started shooting up into her head. Patient denies any blurry vision dizziness lightheadedness numbness or tingling weakness nausea vomiting. She is currently being treated for a UTI as the patient does self cath and has been getting infections frequently. She was switched from Keflex 4 times a day yesterday to Macrobid twice a day and culture was sent of the urine. Patient denies fever or chills. Patient took a muscle relaxant prior to arrival but did not take anything for pain. She states before her surgery when she would get headaches she was always able to control them at home with acin-xxx-ittpolc medication and rest. Patient states this feels different. She does have a standing order to get an MRI completed recommended to wait a couple more months to see if there is a change in fluid pocket that was noted. PAST MEDICAL HISTORY Diagnosis Date Acute pain of right shoulder 01/21/2019 Chiari malformation type I (HCC) Lymphedema Menarche 09/2011 PMH - PAST MEDICAL HISTORY OF spina bifida PMH - PAST MEDICAL HISTORY OF 01/07/2004 color vision-normal PMH - PAST MEDICAL HISTORY OF bilateral club feet PMH - PAST MEDICAL HISTORY OF broken leg in 10/09 PAST SURGICAL HISTORY Procedure Laterality Date AFP, OPEN SPINA BIFIDA ([facility]) Spina Bifida surgery during infancy APPENDICONEOVESICOSTOMY 06/20/2016 APPENDICONEOVESICOSTOMY 12/2016 COLONOSCOPY FLX DX W/COLLJ SPEC WHEN PFRMD 10/24/2017 Colonoscopy KNEE RIGHT OP SURGERY 10/2012 right knee PAST SURGICAL HISTORY OF Bilateral Foot reconstruction x 4-5 times PAST SURGICAL HISTORY OF laser surgery on birthmark PAST SURGICAL HISTORY OF 10/2010 right knee surgery TONSILLECTOMY AND ADENOIDECTOMY FAMILY HISTORY Problem Relation Age of Onset Uterine Cancer Mother Ovarian cancer Mother Anesthesia Problems Maternal Uncle Patient's mother states her brother coded during a procedure as a baby. Not actually diagnosed with anything specific and did not undergo further anesthesia as an adult. Hypertension Maternal Grandmother Breast Cancer Maternal Grandmother Heart Maternal Grandfather Renal Cell Cancer Maternal Grandfather Thyroid Cancer Maternal Grandfather Hypertension Paternal Grandmother Hypertension Paternal Grandfather Heart Paternal Grandfather Social History Tobacco Use Smoking status: Never Passive exposure: Never Smokeless tobacco: Never Tobacco comments: no smokers in home Vaping Use Vaping status: Never Used Substance and Sexual Activity Alcohol use: Yes Comment: Not weekly Drug use: Never Sexual activity: Never ALLERGIES Allergen Reactions Banana Unknown Per diagnosis Latex Unknown Per diagnosis Review of Systems Constitutional: Negative for chills and fever. Eyes: Negative for visual disturbance. Gastrointestinal: Negative for abdominal pain, constipation, diarrhea, nausea and vomiting. Genitourinary: Positive for frequency. Musculoskeletal: Positive for neck pain. Negative for back pain. Neurological: Positive for headaches. Negative for dizziness, weakness, light-headedness and numbness. Psychiatric/Behavioral: Negative for confusion. Physical Exam Vitals [10/03/242040] BP Pulse Temp Temp src Resp SpO2 Weight Height 114/83 (!) 123 36.4 ?C (97.5 ?F) Temporal 16 99 % 81.6 kg (180 lb) 1.626 m (5' 4) Physical Exam Vitals and nursing note reviewed. Constitutional: General: She is not in acute distress. Appearance: Normal appearance. She is not ill-appearing or toxic-appearing. HENT: Head: Normocephalic and atraumatic. Mouth/Throat: Mouth: Mucous membranes are moist. Pharynx: Oropharynx is clear. Eyes: Extraocular Movements: Extraocular movements intact. Pupils: Pupils are equal, round, and reactive to light. Comments: No nystagmus photophobia noted Neck: Comments: Unable to fully rotate head to the left which causes pain, mild tenderness to bilateral paraspinal muscles, no tendern (more content not included)... Normal [facility] Bacteria Ur Culton 5 Bacteria identified Cx Nom (U) ORGANISM ID: 1 10,000 -<50,000 CFU/ml Marilee albicans Normal [facility] Comment on above: Performed By: #### 6 30-4 #### [facility] [place] [id number] [facility] [place] [address] [place] Bacteria identified Cx Nom (U) ORGANISM ID: 1 >=100,000 CFU/ml Escherichia coli ORGANISM ID: 1 (ESCHERICHIA COLI) ANTIBIOTIC INTERPRETATION ALVIN STATUS REFERENCE RANGE Ampicillin S <=4 F Susceptible <=8 , Intermediate >8 , Resistant >16 Cefazolin S <=1 F Susceptible 0-16 , Intermediate <0 or >16 , Resistant >16 For uncomplicated urinary tract infections, cefazolin results can be used to predict susceptibility or resistance to cephalexin. Ceftriaxone S <=1 F Susceptible <=1 , Intermediate >1 , Resistant >=4 Cefepime S <=1 F Susceptible <=2 , Susceptible-Dose Dependent >2 , Resistant >=16 Ertapenem S <=0.25 F Susceptible <=0.5 , Intermediate >.5 , Resistant >1 Meropenem S <=0.5 F Susceptible <=1 , Intermediate >1 , Resistant >2 Ampicillin/Sulbact S 4 F Piperacillin/Tazobac S <=2 F Gentamicin S <=2 F Susceptible <=2 , Intermediate >2 , Resistant >=8 Trimeth sulfameth S <=0.5 F Ciprofloxacin S <=0.25 F Susceptible <0.5 , Intermediate >=.5 , Resistant >=1 Nitrofurantoin S <=16 F Susceptible <=32 , Intermediate >32 , Resistant >64 Abnormal [facility] Comment on above: Performed By: #### 6 30-4 ####[facility] [id number] [place] [id number] [place] CNOVon 10-02-2024 CNOV Office Visit ([facility] ) -------- MADHURI PAULSON ([id number]) 2000 F CHT Date Time Provider Department 10/02/24 6:20 PM ALAN FAIRCHILD [facility]AS During your visit today, we recorded the following information about you: Temperature Pulse Respiration Blood pressure 98.3 degrees 110/minute 18/minute 127/90 Weight 81.6 kg Alan Fairchild APRN.SIGNAL INSPECTOR 10/02/2024 7:23 PM Signed [facility] [place] Subjective Madhuri Paulson is a 23 year old female. Patient presents with: [place]TI: [place] [id number] no better Madhuri is a 23-year-old female who presents today with urinary frequency. She states that she was seen on the for concerns for urinary tract infection. She states that she has spina bifida and she self caths 4 times a day. She states that recently she has been self catheterizing 10 times a day. She states that this is not normal for her. She was placed on Keflex on Monday, however her urine culture was missed and she is still having urinary symptoms that have not gotten any better. She would like to switch her antibiotics. No fever or chills. Denies blood in her urine. States that since the first of the year she has had 6 urinary tract infections. She has not seen a urologist. She is here for further evaluation and treatment. No other complaints. Review of Systems Constitutional: Negative for chills and fever. Respiratory: Negative for cough. Cardiovascular: Negative for chest pain. Gastrointestinal: Negative for abdominal pain, nausea and vomiting. Genitourinary: Positive for frequency and urgency. Negative for hematuria. Objective BP 127/90 Pulse 110 Temp 36.8 ?C (98.3 ?F) Resp 18 Wt 81.6 kg (180 lb) LMP 09/12/2024 (Approximate) SpO2 99% BMI 30.90 kg/m? Physical Exam Vitals and nursing note reviewed. Constitutional: General: She is not in acute distress. Appearance: Normal appearance. She is not ill-appearing, toxic-appearing or diaphoretic. HENT: Head: Normocephalic and atraumatic. Eyes: Extraocular Movements: Extraocular movements intact. Conjunctiva/sclera: Conjunctivae normal. Pulmonary: Effort: Pulmonary effort is normal. No respiratory distress. Abdominal: General: Bowel sounds are normal. Palpations: Abdomen is soft. Tenderness: There is no abdominal tenderness. There is no right CVA tenderness, left CVA tenderness or guarding. Musculoskeletal: General: Normal range of motion. Cervical back: Normal range of motion and neck supple. Skin: General: Skin is warm and dry. Neurological: General: No focal deficit present. Mental Status: She is alert and oriented to person, place, and time. Psychiatric: Mood and Affect: Mood normal. Behavior: Behavior normal. {ASSESSMENT/PLAN: 1. Recurrent UTI (urinary tract infection) - ICD9: 599.0, ICD10: N39.0 (primary diagnosis) recurrent - UA positive for hematuria - Send urine for culture - Patient education for prevention given - NITROFURANTOIN MONOHYDRATE AND MACROCRYSTAL 100 MG ORAL CAP - CONSULT TO UROLOGY -Patient with history of spina bifida that self caths 4 times daily. She has been treated for recurrent urinary tract infections for the past few months. States that she is currently taking Keflex that she started on Monday. States that she is still self cathing about 10 times a day. Does not feel like her symptoms have gotten any better at this time. Unfortunately a urine culture was missed and we do not know what bacteria is growing. Patient would like to switch antibiotics. She was hesitant to try Bactrim as she states that this upsets her stomach. I will start her on Macrobid 1 pill twice a day for 7 days. We did repeat a urine culture and sent that out today. I informed her that I will call her if we need to make any changes to the antibiotics pending her urine culture. At this time I do believe that she needs to be evaluated by urology. I did place a consult to them and gave her a referral sheet. Encouraged patient to call for an appointment tomorrow. Reviewed red flag symptoms and discussed when patient would need to be evaluated in the emergency room. An education handout was provided. Patient was agreeable and verbalized understanding of the plan. She was discharged in stable condition from urgent care. 2. Urinary frequency - ICD9: 788.41, ICD10: R35.0 - URINALYSIS, DIPSTICK ONLY Alan Fairchild APRN.SIGNAL INSPECTOR History and Record Review External record(s) reviewed: prior outpatient record. Findings from review of outpatient records: 09/10/2024 and 09/27/2024 Differential Diagnoses - Recurrent UTI is more likely for the following reason(s): suggested by HANDP and consistent with laboratory studies Disposition The patient was discharged. Procedures Alan Fairchild APRN.[facility] 10/02/2024 7:06 PM Addendum Stop Keflex. Start Macrobid. I will call you if yo (more content not included)... Normal [facility] MADHURI [facility]ULSON ([id number]) 2000 F T Date Time Provider Department 10/02/24 [facility] During your visit today, we recorded the following information about you: Alma Crawley RN 10/02/2024 4:40 PM Signed Patient calls to request an appointment for recurrent UTI. She is currently on cephalexin QID and symptoms are not improving. Patient was seen at [facility] but urine wasn't sent for a culture. Patient concerned that antibiotic is not correct for infection she has. PCP out and no available appointments with [facility]. Offered availability within [facility]. Scheduled with appointment time that worked for patient. Alma Crawley RN Allergies As of Date: 10/02/2024 Noted Allergy Reaction BANANA 10/05/2010 16 - Unknown Comments: Per diagnosis LATEX 10/18/2002 16 - Unknown Comments: Per diagnosis Date Reviewed: 09/27/2024 Reviewed by: Aidan Bains Jr., RN CLINICAL.[facility] - Fully Assessed Reason for Visit: Appointment [186] Prescriptions as of 10/02/2024 - cephALEXin (KEFLEX) 500 mg capsule Take 1 capsule by mouth four times daily for 7 days. - Phentermine HCl 37.5 mg tablet Take 1 tablet by mouth every afternoon. - Drospirenone-Ethinyl Estradiol (PHILIP, 28,) 3-0.02 mg per tablet Take 1 tablet by mouth once daily. Ok to skip placebo week and start on new pack of pills - metFORMIN (GLUCOPHAGE) 500 mg tablet Take 1 tablet by mouth daily with dinner. - Ascorbic Acid 1,000 mg tablet Take 1 tablet by mouth once daily. - albuterol HFA (PROVENTIL HFA, VENTOLIN HFA) 90 mcg/actuation inhaler Inhale 2 Puffs as instructed. - Catheter (FEMALE CATHETER) 14 Fr misc 14 Chilean, 16 inch female straight tip intermittent catheter, to use q6 hrs prn urinary retention - B.animalis,bifid,infanti s,long (PROBIOTIC 4X ORAL) Take 1 capsule by mouth once daily. 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] 10/11/2010 Constipation [K59.00] 02/18/2014 Abnormality of gait [R26.9] 03/03/2015 Thoracic outlet syndrome [G54.0] 09/17/2018 Scapulothoracic bursitis of right shoulder [M75*01/21/2019 Acute pain of right shoulder [M25.511] 01/21/2019 06/29/2020 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] Lymphedema [I89.0] Neurogenic bowel [K59.2] 06/20/2016 Obese [E66.9] Obesity, Class I, BMI 30-34.9 [E66.811] 12/15/2023 S/P brain surgery [Z98.890] 12/15/2023 Postoperative pain [G89.18] 12/18/2023 Routine physical examination [Z00.00] 12/27/2023 Recurrent UTI (urinary tract infection) [N39.0] 07/16/2024 Dysmenorrhea [N94.6] 07/16/2024 Neurogenic bladder [N31.9] 07/16/2024 Encounter Status:Closed by ALMA CRAWLEY on 10/02/24 Normal [facility] URINALYSIS, DIPSTICK ONLYOrd ered By: Red Butler on 10-02-2024 Bilirubin Ql (U) Negative Negative [facility] Clarity (Unsp spec) Slightly Cloudy Abnormal Clear [facility] Color (U) Yellow Yellow [facility] Glucose Test strip (U) [Mass/Vol] Negative Negative [facility] Hemoglobin Ql (U) Trace Abnormal Negative [facility] Interpretation and review of laboratory results Abnormal [facility] Ketones Ql (U) Negative Negative [facility] Leukocyte esterase Test strip Ql (U) Negative Negative [facility] Nitrite Ql (U) Negative Negative [facility] pH (U) 6 [pH] 5.0 - 8.0 [facility] Protein (U) [Mass/Vol] 1+ Abnormal Negative [facility] Specific gravity (U) [Rel density] 1.03 1.005 - 1.030 [facility] Urobilinogen Ql (U) Negative Negative [facility] URINALYSIS, DIPSTICK ONLYon 10-02-2024 Bilirubin Ql (U) Negative Normal Negative [facility] Comment on above: Order Comment: Speci men Type: URINE SPECIMENOrdering Facility: [facility] Address: [address] [place] [address] Performed By: #### U A ####GISEL MASSDANNYN LABCLIA [id number] [place] [address] [facility] Clarity (Unsp spec) Slightly Cloudy Abnormal Clear [facility] Comment on above: Order Comment: Speci men Type: URINE SPECIMENOrdering Facility: [facility] Address: [address] [place] [address] Performed By: #### U A ####GISEL [place] LABCLIA [id number] [place] [address] [place] [facility] Color (U) Yellow Normal Yellow [facility] Comment on above: Order Comment: Speci men Type: URINE SPECIMENOrdering Facility: [facility] Address: [address] [place] [address] Performed By: #### U A ####JAVIERCristine [place] LABCLIA [id number] [place] [address] [facility] Glucose Test strip (U) [Mass/Vol] Negative Normal Negative [facility] Comment on above: Order Comment: Speci men Type: URINE SPECIMENOrdering Facility: [facility] Address: [address] [place] [address] Performed By: #### U A ####JAVIERCristine [place] LABCLIA [id number] [address] Hemoglobin Ql (U) Trace Abnormal Negative [facility] Comment on above: Order Comment: Speci men Type: URINE SPECIMENOrdering Facility: [facility] Address: [address] [place] [address] Performed By: #### U A ####JAVIERCristine MASSDANNYN LABCLIA [id number] [address] Ketones Ql (U) Negative Normal Negative [facility] Comment on above: Order Comment: Speci men Type: URINE SPECIMENOrdering Facility: [facility] Address: [address] [place] [address] Performed By: #### U A ####GISEL MASSDANNYN LABCLIA [id number] [place] [address] [facility] Leukocyte esterase Test strip Ql (U) Negative Normal Negative [facility] Comment on above: Order Comment: Speci men Type: URINE SPECIMENOrdering Facility: [facility] Address: [address] [place] [address] Performed By: #### U A ####JAVIERCristine [place] LABCLIA [id number] [place] [address] [facility] [place] Nitrite Ql (U) Negative Normal Negative [facility] Comment on above: Order Comment: Speci men Type: URINE SPECIMENOrdering Facility: [facility] Address: [address] [place] [address] Performed By: #### U A ####GISEL MCKNIGHTKiran LABCLIA [id number] [place] [address] [facility] pH (U) 6.0 [pH] Normal 5.0-8.0 [facility] Comment on above: Order Comment: Speci men Type: URINE SPECIMENOrdering Facility: [facility] Address: [address] [place] [address] Performed By: #### U A ####JAVIERCristine ROXANNAKiran LABIA [id number] [place] [address] [facility] Protein (U) [Mass/Vol] 1+ Abnormal Negative [facility] Comment on above: Order Comment: Speci men Type: URINE SPECIMENOrdering Facility: [facility] Address: [address] [place] [address] Performed By: #### U A ####JAVIERCristine [facility] TYLERKir[facility] LABIA [id number] [place] [address] [facility] Specific gravity (U) [Rel density] 1.030 Normal 1.005-1.030 [facility] Comment on above: Order Comment: Speci men Type: URINE SPECIMENOrdering Facility: [facility] Address: [address] [place] [address] Performed By: #### U A ####JAVIERCristine JOSEPHGERARD LABIA [id number] [place] [address] [facility] Urobilinogen Ql (U) Negative Normal Negative [facility] Comment on above: Order Comment: Speci men Type: URINE SPECIMENOrdering Facility: [facility] Address: [address] [place] [address] Performed By: #### U A ####JAVIERCristine ROXANNAKiran LABIA [id number] [place] [address] [facility] [place] CNOVon 09-27-2024 CNOV Office Visit ([facility] ) -------- MADHURI PAULSON ([id number]) 2000 F CHT Date Time Provider Department 09/27/24 5:15 PM AIDAN BAINS JR During your visit today, we recorded the following information about you: Temperature Pulse Respiration Blood pressure 97.8 degrees 91/minute 18/minute 119/85 Weight Last Period 81.6 kg 09/12/24 Aidan Bains Jr., RN CLINICAL.SIGNAL INSPECTOR 09/27/2024 5:47 PM Signed [facility] [place] Subjective Madhuri Paulson is a 23 year old female. Patient presents with: frequent urination: Frequent urination x 2 days Has recurring UTI's 23-year-old female presents today complaining of frequent urination and dysuria by 2 days. Patient was previously seen at this office a couple weeks ago for a UTI and appropriate antibiotic was prescribed at that time. Patient self caths. The history is provided by the patient. Review of Systems Constitutional: Negative for fever. HENT: Negative for sore throat. Respiratory: Negative for chest tightness. Cardiovascular: Negative for chest pain. Gastrointestinal: Negative for abdominal pain. Genitourinary: Positive for dysuria, frequency and urgency. Musculoskeletal: Negative for back pain. Skin: Negative for rash. Neurological: Negative for headaches. Objective BP 119/85 Pulse 91 Temp 36.6 ?C (97.8 ?F) Resp 18 Wt 81.6 kg (180 lb) LMP 09/12/2024 (Approximate) SpO2 100% BMI 30.90 kg/m? Physical Exam Vitals and nursing note reviewed. Constitutional: Appearance: Normal appearance. HENT: Head: Normocephalic and atraumatic. Eyes: Conjunctiva/sclera: Conjunctivae normal. Cardiovascular: Rate and Rhythm: Normal rate and regular rhythm. Heart sounds: Normal heart sounds. Pulmonary: Effort: Pulmonary effort is normal. Breath sounds: Normal breath sounds. No wheezing or rales. Abdominal: General: Bowel sounds are normal. Palpations: Abdomen is soft. Tenderness: There is no right CVA tenderness or left CVA tenderness. Skin: General: Skin is warm and dry. Neurological: Mental Status: She is alert and oriented to person, place, and time. Urine dip positive for leuks, nitrates, urobilinogen, protein, ketones, and cloudy. Consider positive for UTI Urine culture ordered. Assessment AND Plan Recurrent UTI (urinary tract infection) Based on examination I diagnosed patient with a recurrent UTI infection. Patient was previously treated here when asked patient stated she had about 6 UTIs since the beginning of the year. I feel that further evaluation is needed I recommended follow-up with the urologist. Patient stated she is trying to find a urologist to go to. She has an appointment with her primary care physician in 2 weeks and stated she would bring the subject up with them. Due to patient's self cathing to make sure that this is a simple UTI I did order another urine culture. Base further treatment on results of culture and sensitivity when received. Orders: cephALEXin (KEFLEX) 500 mg capsule; Take 1 capsule by mouth four times daily for 7 days. BACTERIAL CULTURE, URINE phenazopyridine (PYRIDIUM) 200 mg tablet; Take 1 tablet by mouth three times a day as needed for pain for up to 3 days. Urinary problem Orders: URINALYSIS, DIPSTICK ONLY; Future phenazopyridine (PYRIDIUM) 200 mg tablet; Take 1 tablet by mouth three times a day as needed for pain for up to 3 days. MDM Procedures Aidan Bains Jr., JO.SIGNAL INSPECTOR 09/27/2024 5:37 PM Signed Take medications as prescribed. Follow-up with PCP or return if symptoms do not resolve visit Urgent Care. Aidan Bains Jr., JO.SIGNAL INSPECTOR 09/27/2024 5:46 PM Written Based on examination I diagnosed patient with a recurrent UTI infection. Patient was previously treated here when asked patient stated she had about 6 UTIs since the beginning of the year. I feel that further evaluation is needed I recommended follow-up with the urologist. Patient stated she is trying to find a urologist to go to. She has an appointment with her primary care physician in 2 weeks and stated she would bring the subject up with them. Due to patient's self cathing to make sure that this is a simple UTI I did order another urine culture. Base further treatment on results of culture and sensitivity when received. Orders: cephALEXin (KEFLEX) 500 mg capsule; Take 1 capsule by mouth four times daily for 7 days. BACTERIAL CULTURE, URINE phenazopyridine (PYRIDIUM) 200 mg tablet; Take 1 tablet by mouth three times a day as needed for pain for up to 3 days. Allergies As of Date: 09/27/2024 Noted Allergy Reaction BANANA 10/05/2010 16 - Unknown Comments: Per diagnosis LATEX 10/18/2002 16 - Unknown Comments: Per diagnosis Date Reviewed: 09/27/2024 Reviewed by: Aidan Bains Jr., RN CLINICAL.SIGNAL INSPECTOR - Fully Assessed Reason for Visit: frequent urination [Other] Cmt: Freq (more content not included)... Normal [facility] URINALYSIS, DIPSTICK ONLYOrd ered By: Eric Mackey on 09-27-2024 Bilirubin Ql (U) Negative Negative [facility] Clarity (Unsp spec) Cloudy Abnormal Clear [facility] Color (U) Yellow Yellow [facility] Glucose Test strip (U) [Mass/Vol] Negative Negative [facility] Hemoglobin Ql (U) Negative Negative [facility] Interpretation and review of laboratory results Abnormal [facility] Ketones Ql (U) Trace Abnormal Negative [facility] Leukocyte esterase Test strip Ql (U) 2+ Abnormal Negative [facility] Nitrite Ql (U) Positive Abnormal Negative [facility] pH (U) 6 [pH] 5.0 - 8.0 [facility] Protein (U) [Mass/Vol] 1+ Abnormal Negative [facility] Specific gravity (U) [Rel density] 1.03 1.005 - 1.030 [facility] Urobilinogen Ql (U) Trace Abnormal Negative [facility] URINALYSIS, DIPSTICK ONLYon 09-27-2024 Bilirubin Ql (U) Negative Normal Negative [facility] Comment on above: Order Comment: Speci men Type: URINE SPECIMENOrdering Facility: [facility] Address: [address] [place] [address] Performed By: #### U A ####[facility] LABCLIA [id number] [place] [address] [place] Clarity (Unsp spec) Cloudy Abnormal Clear [facility] Comment on above: Order Comment: Speci men Type: URINE SPECIMENOrdering Facility: [facility] Address: [address] [place] [address] Performed By: #### U A ####JAVIERCristine JOSEPHDANNYN LABCLIA [id number] [place] [address] [facility] Color (U) Yellow Normal Yellow [facility] Comment on above: Order Comment: Speci men Type: URINE SPECIMENOrdering Facility: [facility] Address: [address] [place] [address] Performed By: #### U A ####GISEL MASSGERARD LABCLIA [id number] [address] Glucose Test strip (U) [Mass/Vol] Negative Normal Negative [facility] Comment on above: Order Comment: Speci men Type: URINE SPECIMENOrdering Facility: [facility] Address: [address] [place] [address] Performed By: #### U A ####GISEL MASSDANNYN LABCLIA [id number] [address] Hemoglobin Ql (U) Negative Normal Negative [facility] Comment on above: Order Comment: Speci men Type: URINE SPECIMENOrdering Facility: [facility] Address: [address] [place] [address] Performed By: #### U A ####GISEL MASSDANNYN LABCLIA [id number] [place] [address] [facility] Ketones Ql (U) Trace Abnormal Negative [facility] Comment on above: Order Comment: Speci men Type: URINE SPECIMENOrdering Facility: [facility] Address: [address] [place] [address] Performed By: #### U A ####JAVIERCristine MASSILLON LABCLIA [id number] [place] [address] [facility] Leukocyte esterase Test strip Ql (U) 2+ Abnormal Negative [facility] Comment on above: Order Comment: Speci men Type: URINE SPECIMENOrdering Facility: [facility] Address: [address] [place] [address] Performed By: #### U A ####GISEL CABALLERO LABCLIA [id number] [place] [address] [place] [facility] Nitrite Ql (U) Positive Abnormal Negative [facility] Comment on above: Order Comment: Speci men Type: URINE SPECIMENOrdering Facility: [facility] Address: [address] [place] [address] Performed By: #### U A ####GISEL MCKNIGHTKiran LABCLIA [id number] [place] [address] [place] [facility] pH (U) 6.0 [pH] Normal 5.0-8.0 [facility] Comment on above: Order Comment: Speci men Type: URINE SPECIMENOrdering Facility: [facility] Address: [address] [place] [address] Performed By: #### U A ####GISEL MCKNIGHTKiran LABCLIA [id number] [place] [address] [place] [facility] Protein (U) [Mass/Vol] 1+ Abnormal Negative [facility] Comment on above: Order Comment: Speci men Type: URINE SPECIMENOrdering Facility: [facility] Address: [address] [place] [address] Performed By: #### U A ####JAVIERCristine ROXANNAKiran LABCLIA [id number] [place] [address] [facility] Specific gravity (U) [Rel density] 1.030 Normal 1.005-1.030 [facility] Comment on above: Order Comment: Speci men Type: URINE SPECIMENOrdering Facility: [facility] Address: [address] [place] [address] Performed By: #### U A ####JAVIERCristine ROXANNAN LABCLIA [id number] [place] [address] [place] Urobilinogen Ql (U) Trace Abnormal Negative [facility] Comment on above: Order Comment: Speci men Type: URINE SPECIMENOrdering Facility: [facility] Address: [address], [place] [address] Performed By: #### U A ####GISEL ROXANNAKiran LABCLIA [id number] [place] [address] [place] [facility] -------- MADHURI PAULSON ([id number]) 2000 F CHT Date Time Provider Department 09/20/24 [facility] During your visit today, we recorded the following information about you: Alecia Guardado LPN 09/20/2024 1:02 PM Signed Fax order to [facility] form with Noelle. Jill Munson APRN.FANNY 09/26/2024 2:24 PM Signed What does this mean? Jill Munson APRN.Shannon Barrera MA 09/26/2024 2:41 PM Signed Please review order pended MARILY Pierre Rebekah, APRN.FANNY 09/26/2024 3:03 PM Signed Order placed. Jill Munson APRN.Alecia Juan LPN 09/27/2024 1:23 PM Signed Pt. called to verify where she wants to get this done at. Message left to return call. Jacqueline Field LPN 09/30/2024 9:45 AM Signed Pt reports she would like order faxed to [facility] in [place]. Jacqueline Field LPN Allergies As of Date: 09/20/2024 Noted Allergy Reaction BANANA 10/05/2010 16 - Unknown Comments: Per diagnosis LATEX 10/18/2002 16 - Unknown Comments: Per diagnosis Date Reviewed: 09/10/2024 Reviewed by: Aidan Bains Jr., RN CLINICAL.SIGNAL INSPECTOR - Fully Assessed Primary Visit Diagnosis:Spina bifida of lumbar region without hydrocephalus (HCC) [Q05.7] Other Visit Diagnosis:Abnormality of gait [R26.9] Order(s):CONSULT TO PT/OT WHEELCHAIR EVALUATION [[id number]] Order #: [id number]: 1 FUTURE Prescriptions as of 10/01/2024 - cephALEXin (KEFLEX) 500 mg capsule Take 1 capsule by mouth four times daily for 7 days. - Phentermine HCl 37.5 mg tablet Take 1 tablet by mouth every afternoon. - Drospirenone-Ethinyl Estradiol (PHILIP, 28,) 3-0.02 mg per tablet Take 1 tablet by mouth once daily. Ok to skip placebo week and start on new pack of pills - metFORMIN (GLUCOPHAGE) 500 mg tablet Take 1 tablet by mouth daily with dinner. - Ascorbic Acid 1,000 mg tablet Take 1 tablet by mouth once daily. - albuterol HFA (PROVENTIL HFA, VENTOLIN HFA) 90 mcg/actuation inhaler Inhale 2 Puffs as instructed. - Catheter (FEMALE CATHETER) 14 Fr misc 14 Chilean, 16 inch female straight tip intermittent catheter, to use q6 hrs prn urinary retention - B.animalis,bifid,infanti s,long (PROBIOTIC 4X ORAL) Take 1 capsule by mouth once daily. 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] 10/11/2010 Constipation [K59.00] 02/18/2014 Abnormality of gait [R26.9] 03/03/2015 Thoracic outlet syndrome [G54.0] 09/17/2018 Scapulothoracic bursitis of right shoulder [M75*01/21/2019 Acute pain of right shoulder [M25.511] 01/21/2019 06/29/2020 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] Lymphedema [I89.0] Neurogenic bowel [K59.2] 06/20/2016 Obese [E66.9] Obesity, Class I, BMI 30-34.9 [E66.811] 12/15/2023 S/P brain surgery [Z98.890] 12/15/2023 Postoperative pain [G89.18] 12/18/2023 Routine physical examination [Z00.00] 12/27/2023 Recurrent UTI (urinary tract infection) [N39.0] 07/16/2024 Dysmenorrhea [N94.6] 07/16/2024 Neurogenic bladder [N31.9] 07/16/2024 Encounter Status:Closed by JACQUELINE FIELD on 09/30/24 Normal [facility] Visit Repor ton 09-16-2024 Gastroenterology Visit Report [facility] [address] [place] [address] OFFICE VISIT Date of Service: 09/16/24 MR#: [id number] Acct: [id number] Name: MADHURI PAULSON Rep #: [id number] : 2000 Provider: Colton Juárez DO Age/Sex: 23/F Location: [facility] [place] Status: Signed Intake Vital Signs 05/20/21 11:31 07/29/24 11:07 Height 5 ft 3 in 5 ft 4 in Intake Visit Reasons: 3 M FU Allergies latex Allergy (Verified 07/29/24 11:03) Other Medications ???Medication ???Instructions ???Recorded ???Confirmed ???Type ascorbic acid (vitamin C) 500 mg mg PO 06/17/24 09/16/24 History capsule lactobacillus combination no.4 3 3,000 mmu cells PO QDAY 06/17/24 0 09/16/24 History billion cell capsule (Probiotic) naproxen sodium 220 mg tablet 220 mg PO BID PRN 06/17/24 5 History (Aleve) drospirenone 3 mg-ethinyl 1 tab PO DAILY 07/29/24 09/16/24 H istory estradiol 0.02 mg tablet metformin 500 mg tablet 500 mg PO DAILY 07/29/24 09/16/24 History phentermine 37.5 mg tablet 37.5 mg PO DAILY 07/29/24 09/16/24 History (Adipex-P) duloxetine 20 mg capsule,delayed 20 mg PO QDAY #30 caps 09/16/24 Rx release [facility] Medical History (Updated 09/16/24 @ 09:[address] Colton Juárez, ) Chiari malformation Spina bifida Social History Smoking Status: Never smoker HPI HPI Details: MADHURI PAULSON, is a 23 F who presents to the office today for follow up. *[facility] established 06.17.24 pt reports she is presenting to establish care with I after moving back to the area. Pt reports long hx of GI issues. Reports she has had 3 Banda Stoma surgeries to help her go to the bathroom and sometimes it helps and sometimes it doesn't. Pt reports that she is not currently having any GI symptoms of concern. She has been dealing with the complications of spina bifida including Arnold-Chiari malformation which she recently had brain surgery to correct. She is having some complications from that surgery and is not allowing her to participate in any physical activity. She often has bloating, abdominal pain and cramping and incomplete evacuation with severe constipation. This has been going on since she was a kid. SITZ severe slow transit constipation GET 1..25 abnormal 86.93 minutes MREnterography 07.29.25 Mild luminal narrowing in the middle and distal one third regions of the ileum and in the distal jejunum, but without beading or skipped lesions or wall thickening is most likely due to extrinsic adhesions or fibrosis from prior inflammation or prior obstruction or surgical intervention. These findings are not radiographically specific for inflammatory bowel disease but could result and symptoms of irritable bowel syndrome. No small bowel obstruction or fistulous connections or abnormal patulous dilatation. Normal remaining small bowel loops. GET 4-hr study 3.3.25 normal OV 3.17.25 pt reports abdominal for about a month now. Pain is triggered by eating or laying down and pt reports this began after all the testing she was doing. Pt reports a stabbing pain that comes and goes and a burning sensation across her upper abdomen. Pt reports continued alternating bowel movements and constant gas and bloating. ROS Const Constitutional: No fatigue, fever(s) or weight change ENT ENT: No difficulty swallowing Gastro GI: Positive for abdominal pain, bloating, constipation, diarrhea and excessive flatus; No belching, change in bowel habits, change in stool character, coffee ground emesis, cramping, heartburn, difficulty swallowing, feeling full early, incontinent of stools, Vomiting blood/hematemesis, Blood in stool, loose stools, Black,tarry stools, nausea/dyspepsia, pain with swallowing, vomiting or other Musc Musculoskeletal: No joint pain Skin Skin: No yellowing of the eye or itchy eyes Psych Psychiatric: No anxiety and No depression Endo Endocrine: No fatigue or weight change Aller/Imm Allergy/Immunologic: No itchy eyes Brandt/Lymp Hematologic/Lymphatic: No easy bleeding or easy bruising Exam Const General: cooperative, healthy appearing, comfortable, no acute distress, well developed, well groomed and acute distress Nutritional Appearance: well nourished Orientation: alert, awake and oriented x3 HENMT Head: normocephalic and atraumatic Eyes General: appearance normal, both eyes and all related structures Neck Neck: normal visual inspection Chest Chest palpation inspection: normal inspection of the chest Resp Effort Inspection: able to speak in complete sentences Cardio Rate: regular rate Rhythm: regular rhythm GI Inspection: normal to inspection Skin Other: Lymphedema on the right side of her body Assessment a (more content not included)... Normal [facility] Bacteria Ur Culton 5 Bacteria identified Cx Nom (U) ORGANISM ID: 1 >=100,000 CFU/ml Escherichia coli ORGANISM ID: 1 (ESCHERICHIA COLI) ANTIBIOTIC INTERPRETATION ALVIN STATUS REFERENCE RANGE Ampicillin S <=4 F Susceptible <=8 , Intermediate >8 , Resistant >16 Cefazolin S 2 F Susceptible 0-16 , Intermediate <0 or >16 , Resistant >16 For uncomplicated urinary tract infections, cefazolin results can be used to predict susceptibility or resistance to cephalexin. Ceftriaxone S <=1 F Susceptible <=1 , Intermediate >1 , Resistant >=4 Cefepime S <=1 F Susceptible <=2 , Susceptible-Dose Dependent >2 , Resistant >=16 Ertapenem S <=0.25 F Susceptible <=0.5 , Intermediate >.5 , Resistant >1 Meropenem S <=0.5 F Susceptible <=1 , Intermediate >1 , Resistant >2 Ampicillin/Sulbact S 4 F Piperacillin/Tazobac S <=2 F Gentamicin S <=2 F Susceptible <=2 , Intermediate >2 , Resistant >=8 Trimeth sulfameth S <=0.5 F Ciprofloxacin S <=0.25 F Susceptible <0.5 , Intermediate >=.5 , Resistant >=1 Nitrofurantoin S 32 F Susceptible <=32 , Intermediate >32 , Resistant >64 Abnormal [facility] Comment on above: Performed By: #### 6 30-4 ####[facility] LABORATORYCLIA [id number] [place] [address] [place] Uday 09-10-2024 RENEAOV Office Visit ([facility] ) -------- MADHURI PAULSON ([id number]) 2000 F CHT Date Time Provider Department 09/10/24 6:10 PM [facility] During your visit today, we recorded the following information about you: Temperature Pulse Respiration Blood pressure 97.7 degrees 89/minute 18/minute 118/81 Weight 81.6 kg Aidan Bains Jr., RN CLINICAL.[facility] 09/10/2024 6:40 PM Signed [facility] [place] Subjective Madhuri Paulson is a 23 year old female. Patient presents with: frequent urination: Frequent urge to urinate and pressure x 3 days Patient does self cath while at home 23-year-old female presents today with a complaint of frequent urination urgency and bladder pressure by 3 days. Patient does perform self cath. She feels she has a urinary tract infection. The history is provided by the patient. Review of Systems Constitutional: Negative for fever. HENT: Negative for rhinorrhea. Gastrointestinal: Negative for abdominal pain. Genitourinary: Positive for dysuria and urgency. Neurological: Negative for headaches. Objective BP 118/81 Pulse 89 Temp 36.5 ?C (97.7 ?F) Resp 18 Wt 81.6 kg (180 lb) LMP 07/15/2024 (Exact Date) SpO2 99% BMI 30.90 kg/m? Physical Exam Vitals and nursing note reviewed. Constitutional: Appearance: Normal appearance. She is not ill-appearing. HENT: Head: Normocephalic and atraumatic. Eyes: Conjunctiva/sclera: Conjunctivae normal. Cardiovascular: Rate and Rhythm: Normal rate and regular rhythm. Heart sounds: Normal heart sounds. Pulmonary: Effort: Pulmonary effort is normal. Breath sounds: Normal breath sounds. Abdominal: General: Bowel sounds are normal. Palpations: Abdomen is soft. Tenderness: There is no right CVA tenderness or left CVA tenderness. Musculoskeletal: Cervical back: Neck supple. Lymphadenopathy: Cervical: No cervical adenopathy. Skin: General: Skin is warm and dry. Neurological: General: No focal deficit present. Mental Status: She is alert and oriented to person, place, and time. Psychiatric: Behavior: Behavior normal. Assessment AND Plan Recurrent UTI (urinary tract infection) Based on examination I diagnosed patient with a urinary tract infection. I also ordered a urine culture due to her self cathing to make sure that we are addressing the proper organism. I did prescribe her Macrobid and Pyridium. Orders: nitrofurantoin monohydrate and macrocrystal (MACROBID) 100 mg capsule; Take 1 capsule by mouth two times a day for 5 days. phenazopyridine (PYRIDIUM) 200 mg tablet; Take 1 tablet by mouth three times a day as needed for up to 2 days. Urinary problem Orders: URINALYSIS, DIPSTICK ONLY; Future nitrofurantoin monohydrate and macrocrystal (MACROBID) 100 mg capsule; Take 1 capsule by mouth two times a day for 5 days. phenazopyridine (PYRIDIUM) 200 mg tablet; Take 1 tablet by mouth three times a day as needed for up to 2 days. MDM Procedures Aidan Bains Jr., APRN.FANNY 09/10/2024 6:29 PM Signed Take medications as prescribed. Follow-up with PCP or return if symptoms do not resolve visit Urgent Care. Aidan Bains Jr., APRN.SIGNAL INSPECTOR 09/10/2024 6:40 PM Written Based on examination I diagnosed patient with a urinary tract infection. I also ordered a urine culture due to her self cathing to make sure that we are addressing the proper organism. I did prescribe her Macrobid and Pyridium. Orders: nitrofurantoin monohydrate and macrocrystal (MACROBID) 100 mg capsule; Take 1 capsule by mouth two times a day for 5 days. phenazopyridine (PYRIDIUM) 200 mg tablet; Take 1 tablet by mouth three times a day as needed for up to 2 days. Aidan Bains Jr., APRN.SIGNAL INSPECTOR 09/10/2024 6:50 PM Signed Addended by: AIDAN BAINS on: 09/10/2024 06:50 PM Modules accepted: Orders Allergies As of Date: 09/10/2024 Noted Allergy Reaction BANANA 10/05/2010 16 - Unknown Comments: Per diagnosis LATEX 10/18/2002 16 - Unknown Comments: Per diagnosis Date Reviewed: 09/10/2024 Reviewed by: Aidan Bains Jr., JO.SIGNAL INSPECTOR - Fully Assessed Reason for Visit: frequent urination [Other] Cmt: Frequent urge to urinate and pressure x 3 days Patient does self cath while at home Primary Visit Diagnosis:Recurrent UTI (urinary tract infection) [N39.0] Other Visit Diagnosis:Urinary problem [R39.89] Order(s):URINALYSIS, DIPSTICK ONLY [SQUA] Order #: [id number] FUTURE URINALYSIS, DIPSTICK ONLY [SQUA] Order #: [id number]. #:[id number] nitrofurantoin monohydrate and macrocrystal (MACROBID) 100 mg capsuleTake 1 capsule by mouth two times a day for 5 days.Disp: 10 capsuleRfl: 0 phenazopyridine (PYRIDIUM) 200 mg tabletTake 1 tablet by mouth three times a day as needed for up to 2 days.Disp: 6 tabletRfl: 0 BACTERIAL CULTURE, URINE [SQURCUL] Order #: [id number]. #:[id number] Prescriptions (more content not included)... Normal [facility] URINALYSIS, DIPSTICK ONLYOrd ered By: Eric Mackey on 09-10-2024 Bilirubin Ql (U) Negative Negative [facility] Clarity (Unsp spec) Cloudy Abnormal Clear [facility] Color (U) Yellow Yellow [facility] Glucose Test strip (U) [Mass/Vol] Negative Negative [facility] Hemoglobin Ql (U) Negative Negative [facility] Interpretation and review of laboratory results Abnormal [facility] Ketones Ql (U) Negative Negative [facility] Leukocyte esterase Test strip Ql (U) Negative Negative [facility] Nitrite Ql (U) Positive Abnormal Negative [facility] pH (U) 5.5 [pH] 5.0 - 8.0 [facility] Protein (U) [Mass/Vol] 1+ Abnormal Negative [facility] Specific gravity (U) [Rel density] 1.025 1.005 - 1.030 [facility] Urobilinogen Ql (U) Negative Negative [facility] URINALYSIS, DIPSTICK ONLYon 09-10-2024 Bilirubin Ql (U) Negative Normal Negative [facility] Comment on above: Order Comment: Speci men Type: URINE SPECIMENOrdering Facility: [facility] Address: [address] [place] [address] Performed By: #### U A ####GISEL MCKNIGHTN LABCLIA [id number] [place] [address] [facility] Clarity (Unsp spec) Cloudy Abnormal Clear [facility] Comment on above: Order Comment: Speci men Type: URINE SPECIMENOrdering Facility: [facility] Address: [address] [place] [address] Performed By: #### U A ####JAVIERCristine JOSEPHDANNYN LABCLIA [id number] [place] [address] [facility] Color (U) Yellow Normal Yellow [facility] Comment on above: Order Comment: Speci men Type: URINE SPECIMENOrdering Facility: [facility] Address: [address] [place] [address] Performed By: #### U A ####JAVIERCristine JOSEPHGERARD LABCLIA [id number] [address] Glucose Test strip (U) [Mass/Vol] Negative Normal Negative [facility] Comment on above: Order Comment: Speci men Type: URINE SPECIMENOrdering Facility: [facility] Address: [address] [place] [address] Performed By: #### U A ####JAVIERCristine JOSEPHDANNYN LABCLIA [id number] [address] Hemoglobin Ql (U) Negative Normal Negative [facility] Comment on above: Order Comment: Speci men Type: URINE SPECIMENOrdering Facility: [facility] Address: [address] [place] [address] Performed By: #### U A ####JAVIERCristine MASSILLON LABCLIA [id number] [place] [address] [facility] Ketones Ql (U) Negative Normal Negative [facility] Comment on above: Order Comment: Speci men Type: URINE SPECIMENOrdering Facility: [facility] Address: [address] [place] [address] Performed By: #### U A ####JAVIERCristine MASSILLON LABCLIA [id number] [place] [address] [facility] Leukocyte esterase Test strip Ql (U) Negative Normal Negative [facility] Comment on above: Order Comment: Speci men Type: URINE SPECIMENOrdering Facility: [facility] Address: [address] [place] [address] Performed By: #### U A ####JAVIERCristine JOSEPHGERARD LABCLIA [id number] [place] [id number] [facility] Nitrite Ql (U) Positive Abnormal Negative [facility] Comment on above: Order Comment: Speci men Type: URINE SPECIMENOrdering Facility: [facility] Address: [address] [place] [address] Performed By: #### U A ####GISEL JOSEPHGERARD LABCLIA [id number] [place] [address] [facility] pH (U) 5.5 [pH] Normal 5.0-8.0 [facility] Comment on above: Order Comment: Speci men Type: URINE SPECIMENOrdering Facility: [facility] Address: [address] [place] [address] Performed By: #### U A ####JAVIERCristine JOSEPHGERARD LABCLIA [id number] [place] [address] [place] [facility] Protein (U) [Mass/Vol] 1+ Abnormal Negative [facility] Comment on above: Order Comment: Speci men Type: URINE SPECIMENOrdering Facility: [facility] Address: [address] [place] [address] Performed By: #### U A ####JAVIERCristine JOSEPHGERARD LABCLIA [id number] [place] [address] [facility] Specific gravity (U) [Rel density] 1.025 Normal 1.005-1.030 [facility] Comment on above: Order Comment: Speci men Type: URINE SPECIMENOrdering Facility: [facility] Address: [address] [place] [address] Performed By: #### U A ####GISEL CABALLERO LABCLIA [id number] [place] [address] [place] Urobilinogen Ql (U) Negative Normal Negative [facility] Comment on above: Order Comment: Speci men Type: URINE SPECIMENOrdering Facility: [facility] Address: [facility] [place] [id number] Performed By: #### U A ####[facility]PITAL[facility]ristine CABALLERO LABCLIA [id number] [place] [address] [place] Gastric Emptying Study - 4 H [place] 09-02-2024 Gastric Emptying Study - 4 HR [facility] [address] [place] [address] Gastric Emptying Study - 4 HR MR#: [id number] Acct: [id number] Name: MADHURI PAULSON Rep #: [id number] : 2000 F 23 From: Malick maher MD PCP: Dr. Juan Manuel Antonio DO Status: REG CLI Study: Gastric Emptying Study - 4 HR Date of Exam: Exam# [id number] Ordering Dr: Colton Juárez DO PROCEDURE: GASTRIC EMPTYING STUDY - 4 HR REASON FOR EXAM: Gastroparesis. TECHNIQUE: The patient ingested a mixture of 1.1 mCi of sulfur colloid and oatmeal. Gastric emptying study was performed up to 4 hours. RADIOPHARMACEUTICAL: 1.1 mCi of technetium sulfur colloid. COMPARISON: None. FINDINGS: At 4 hours thymic Mrs. At 1 hour, 36% of the radiopharmaceutical exited the stomach. NM/Gastric Emptying Study - 4 HR IMPRESSION: Normal gastric emptying study at 4 hours. Reading Location: [facility] CC: Dr. Juan Manuel Antonio DO; Colton Juárez DO Bilingual Case Manager: Signed Normal [facility] CNOVon 08-26-2024 CNOV Office Visit (FAMPWS ) -------- MADHURI PAULSON ([id number]) 2000 F CHT Date Time Provider Department 08/26/24 10:00 AM CAITLIN CURTIS During your visit today, we recorded the following information about you: Temperature Pulse Respiration Blood pressure 98.9 degrees 113/minute 12/minute 124/74 Weight 83 kg Caitlin Curtis, RN CLINICAL.SIGNAL INSPECTOR 08/26/2024 10:16 AM Signed Chief Complaint Patient presents with: follow up on lft foot HPI Madhuri Paulson is a 23 year old female who presents here today for Above Complaints. Madhuri is an established patient of Dr. Paco DO. Concerns today... Was seen on 08/21 d/t recurrent cellulitis of L foot and toe d/t open blister in between toes. Here today to follow-up and make sure improvement. Pt reports area is not red or warm to touch anymore. Blister is still open and draining slightly. No other concerns or complaints. Past medical history, appointments, medications, allergies reviewed. Previous Medical History PAST MEDICAL HISTORY Diagnosis Date Acute pain of right shoulder 01/21/2019 Chiari malformation type I (HCC) Lymphedema Menarche 09/2011 PMH - PAST MEDICAL HISTORY OF spina bifida PMH - PAST MEDICAL HISTORY OF 01/07/2004 color vision-normal PMH - PAST MEDICAL HISTORY OF bilateral club feet PMH - PAST MEDICAL HISTORY OF broken leg in 10/09 Previous Surgical History PAST SURGICAL HISTORY Procedure Laterality Date AFP, OPEN SPINA BIFIDA ([facility]) Spina Bifida surgery during infancy APPENDICONEOVESICOSTOMY 06/20/2016 APPENDICONEOVESICOSTOMY 12/2016 COLONOSCOPY FLX DX W/COLLJ SPEC WHEN PFRMD 10/24/2017 Colonoscopy KNEE RIGHT OP SURGERY 10/2012 right knee PAST SURGICAL HISTORY OF Bilateral Foot reconstruction x 4-5 times PAST SURGICAL HISTORY OF laser surgery on birthmark PAST SURGICAL HISTORY OF 10/2010 right knee surgery TONSILLECTOMY AND ADENOIDECTOMY Family History FAMILY HISTORY Problem Relation Age of Onset Uterine Cancer Mother Ovarian cancer Mother Anesthesia Problems Maternal Uncle Patient's mother states her brother coded during a procedure as a baby. Not actually diagnosed with anything specific and did not undergo further anesthesia as an adult. Hypertension Maternal Grandmother Breast Cancer Maternal Grandmother Heart Maternal Grandfather Renal Cell Cancer Maternal Grandfather Thyroid Cancer Maternal Grandfather Hypertension Paternal Grandmother Hypertension Paternal Grandfather Heart Paternal Grandfather Patient Allergies ALLERGIES Allergen Reactions Banana Unknown Per diagnosis Latex Unknown Per diagnosis Current Medications Current Outpatient Medications on File Prior to Visit Medication Sig cephALEXin (KEFLEX) 500 mg capsule Take 1 capsule by mouth four times daily for 10 days. Phentermine HCl 37.5 mg tablet Take 1 tablet by mouth every afternoon. Drospirenone-Ethinyl Estradiol (PHILIP, 28,) 3-0.02 mg per tablet Take 1 tablet by mouth once daily. Ok to skip placebo week and start on new pack of pills metFORMIN (GLUCOPHAGE) 500 mg tablet Take 1 tablet by mouth daily with dinner. Ascorbic Acid 1,000 mg tablet Take 1 tablet by mouth once daily. albuterol HFA (PROVENTIL HFA, VENTOLIN HFA) 90 mcg/actuation inhaler Inhale 2 Puffs as instructed. Catheter (FEMALE CATHETER) 14 Fr misc 14 Chilean, 16 inch female straight tip intermittent catheter, to use q6 hrs prn urinary retention B.animalis,bifid,infanti s,long (PROBIOTIC 4X ORAL) Take 1 capsule by mouth once daily. polyethylene glycol 3350 (MIRALAX) 17 gram/dose powder One quarter capful added to 800 cc of water and then flushed through the Banda stoma No current facility-administered medications on file prior to visit. Social History Social History Tobacco Use Smoking status: Never Passive exposure: Never Smokeless tobacco: Never Tobacco comments: no smokers in home Vaping Use Vaping status: Never Used Substance Use Topics Alcohol use: Yes Comment: Not weekly Drug use: No REVIEW OF SYSTEMS: as above Reviewed relevant PMHx, PSHx, Social Hx, current medications and allergies. Review of Symptoms REVIEW OF SYSTEMS See HPI. EXAM: BP 124/74 (BP Site: Left Arm) Pulse 113 Temp 37.2 ?C (98.9 ?F) Resp 12 Wt 83 kg (183 lb) LMP 07/15/2024 (Exact Date) SpO2 96% BMI 31.41 kg/m? General Appearance: Well appearing, alert, in no acute distress, well-hydrated, well nourished.. Skin: Skin color, texture, turgor normal, no suspicious rashes or lesions, Positives: cellulitis improved and resolved, blister without active drainage scabbed over between 4th and 5th digits. Extremities: No deformities, edema, skin discoloration, clubbing or cyanosis. Good capillary refill. . Health Maintenance List Hepatitis C Screening Never done Cervical Cancer Screening due on 11/16/2024 (more content not included)... Normal [facility] CNOVon 08-21-2024 CNOV Office Visit (FAMPWS ) -------- MADHURI PAULSON ([id number]) 2000 F T Date Time Provider Department 08/21/24 2:40 PM [facility] During your visit today, we recorded the following information about you: Pulse Blood pressure Weight 118/minute 112/72 83.3 kg Caitlin Curtis APRN.SIGNAL INSPECTOR 08/21/2024 3:18 PM Signed Chief Complaint Patient presents with: infectiom back in left toe or foot HPI Madhuri Paulson is a 23 year old female who presents here today for Above Complaints. Madhuri is an established patient of Dr. Paco DO. Per [facility] yesterday: Dear Dr. Antonio team, I apologize I keep bothering you guys. Last night I went to shower and noticed my fourth toe on my left foot is swollen, hot, red, and spreading down my foot again. This happened a couple weeks ago but cleared with antibiotics. I put gauze around it with neosporin all night but I?m guessing it?s infected again by its appearance. I?m currently on macrobid for a UTI but I don?t believe that is going to help this infection as well. I was hoping I could come in to be seen possibly Monday evening as I get off work in [employer] at 5:00. Your voicemail was full when I contacted the office this morning so I apologize for sending a message. Thanks. Concerns today... Pt reports L 4th toe with redness, swelling, warmth, and tenderness to touch x 2 days. Redness radiating into top of L foot. There is an open blister in between 4th and 5th toes. Draining yellow color pus. No known injury. Hx of spina bifida so no feeling in feet at baseline. No fever/chills. Pt outlined area of redness last night. She did soak in epsom salt bath which she said did help the redness slightly today. This last episode was end of July. Switched from bactrim to keflex regimen d/t not responding. Keflex regimen worked well and resolved symptoms. Finishing macrobid regimen for UTI in 1-2 days. Past medical history, appointments, medications, allergies reviewed. Previous Medical History PAST MEDICAL HISTORY Diagnosis Date Acute pain of right shoulder 01/21/2019 Chiari malformation type I (HCC) Lymphedema Menarche 09/2011 PMH - PAST MEDICAL HISTORY OF spina bifida PMH - PAST MEDICAL HISTORY OF 01/07/2004 color vision-normal PMH - PAST MEDICAL HISTORY OF bilateral club feet PMH - PAST MEDICAL HISTORY OF broken leg in 10/09 Previous Surgical History PAST SURGICAL HISTORY Procedure Laterality Date AFP, OPEN SPINA BIFIDA ([facility]) Spina Bifida surgery during infancy APPENDICONEOVESICOSTOMY 06/20/2016 APPENDICONEOVESICOSTOMY 12/2016 COLONOSCOPY FLX DX W/COLLJ SPEC WHEN PFRMD 10/24/2017 Colonoscopy KNEE RIGHT OP SURGERY 10/2012 right knee PAST SURGICAL HISTORY OF Bilateral Foot reconstruction x 4-5 times PAST SURGICAL HISTORY OF laser surgery on birthmark PAST SURGICAL HISTORY OF 10/2010 right knee surgery TONSILLECTOMY AND ADENOIDECTOMY Family History FAMILY HISTORY Problem Relation Age of Onset Uterine Cancer Mother Ovarian cancer Mother Anesthesia Problems Maternal Uncle Patient's mother states her brother coded during a procedure as a baby. Not actually diagnosed with anything specific and did not undergo further anesthesia as an adult. Hypertension Maternal Grandmother Breast Cancer Maternal Grandmother Heart Maternal Grandfather Renal Cell Cancer Maternal Grandfather Thyroid Cancer Maternal Grandfather Hypertension Paternal Grandmother Hypertension Paternal Grandfather Heart Paternal Grandfather Patient Allergies ALLERGIES Allergen Reactions Banana Unknown Per diagnosis Latex Unknown Per diagnosis Current Medications Current Outpatient Medications on File Prior to Visit Medication Sig Phentermine HCl 37.5 mg tablet Take 1 tablet by mouth every afternoon. nitrofurantoin monohydrate and macrocrystal (MACROBID) 100 mg capsule Take 1 capsule by mouth two times a day for 7 days. Drospirenone-Ethinyl Estradiol (PHILIP, 28,) 3-0.02 mg per tablet Take 1 tablet by mouth once daily. Ok to skip placebo week and start on new pack of pills metFORMIN (GLUCOPHAGE) 500 mg tablet Take 1 tablet by mouth daily with dinner. Ascorbic Acid 1,000 mg tablet Take 1 tablet by mouth once daily. albuterol HFA (PROVENTIL HFA, VENTOLIN HFA) 90 mcg/actuation inhaler Inhale 2 Puffs as instructed. Catheter (FEMALE CATHETER) 14 Fr misc 14 [place]an, 16 inch female straight tip intermittent catheter, to use q6 hrs prn urinary retention B.animalis,bifid,infanti s,long (PROBIOTIC 4X ORAL) Take 1 capsule by mouth once daily. polyethylene glycol 3350 (MIRALAX) 17 gram/dose powder One quarter capful added to 800 cc of water and then flushed through the Banda stoma No current facility-administered medications on file prior to visit. Social History Social History Tobacco Use Smoking status: Never (more content not included)... Normal [facility] 08-19-2024 [facility] Telephone (FAMEstelitaWS) -------- MADHURI PAULSON ([id number]) 2000 F T Date Time Provider Department 08/19/24 [facility] During your visit today, we recorded the following information about you: Lata Segura MA 08/19/2024 3:09 PM Signed Pt wrote into office regarding CANDS results. Was seen in and started on Macrobid. Asking if this abx will cover the infection she has. Please advise. Lata Segura MA Pt message: Hi Dr. Antonio?s office, I wanted to reach out to make sure the macrobid I was put on Monday will kill the specific bacteria I have. Thanks! Caitlin Curtis APRN.FANNY 08/19/2024 4:16 PM Signed Yes, this will treat it. Take care, Caitlin Curtis APRN.Maikol Williamson OCCA 08/19/2024 4:25 PM Signed TC to patient who verbalized understanding of providers message below. MOLLY Piña Allergies As of Date: 08/19/2024 Noted Allergy Reaction BANANA 10/05/2010 16 - Unknown Comments: Per diagnosis LATEX 10/18/2002 16 - Unknown Comments: Per diagnosis Date Reviewed: 08/16/2024 Reviewed by: Myah Argueta MD - Fully Assessed Reason for Visit: Patient Question [1477] Prescriptions as of 08/19/2024 - Phentermine HCl 37.5 mg tablet Take 1 tablet by mouth every afternoon. - nitrofurantoin monohydrate and macrocrystal (MACROBID) 100 mg capsule Take 1 capsule by mouth two times a day for 7 days. - Drospirenone-Ethinyl Estradiol (PHILIP, 28,) 3-0.02 mg per tablet Take 1 tablet by mouth once daily. Ok to skip placebo week and start on new pack of pills - metFORMIN (GLUCOPHAGE) 500 mg tablet Take 1 tablet by mouth daily with dinner. - Ascorbic Acid 1,000 mg tablet Take 1 tablet by mouth once daily. - albuterol HFA (PROVENTIL HFA, VENTOLIN HFA) 90 mcg/actuation inhaler Inhale 2 Puffs as instructed. - Catheter (FEMALE CATHETER) 14 Fr misc 14 [place]an, 16 inch female straight tip intermittent catheter, to use q6 hrs prn urinary retention - B.animalis,bifid,infanti s,long (PROBIOTIC 4X ORAL) Take 1 capsule by mouth once daily. 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] 10/11/2010 Constipation [K59.00] 02/18/2014 Abnormality of gait [R26.9] 03/03/2015 Thoracic outlet syndrome [G54.0] 09/17/2018 Scapulothoracic bursitis of right shoulder [M75*01/21/2019 Acute pain of right shoulder [M25.511] 01/21/2019 06/29/2020 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] Lymphedema [I89.0] Neurogenic bowel [K59.2] 06/20/2016 Obese [E66.9] Obesity, Class I, BMI 30-34.9 [E66.811] 12/15/2023 S/P brain surgery [Z98.890] 12/15/2023 Postoperative pain [G89.18] 12/18/2023 Routine physical examination [Z00.00] 12/27/2023 Recurrent UTI (urinary tract infection) [N39.0] 07/16/2024 Dysmenorrhea [N94.6] 07/16/2024 Neurogenic bladder [N31.9] 07/16/2024 Encounter Status:Closed by MAIKOL MENDOZA on 08/19/24 Normal [facility] CNOVon 08-16-2024 CNOV Office Visit (UCMMAS ) -------- MADHURI [id number]) 2000 F CHT Date Time Provider Department 08/16/24 7:20 PM MYAH ARGUETA During your visit today, we recorded the following information about you: Temperature Pulse Respiration Blood pressure 97.8 degrees 104/minute 18/minute 139/99 Weight 81.2 kg Myah rAgueta MD 08/16/2024 7:51 PM Signed SUBJECTIVE: Madhuri Paulson is a 23 year old female here today acutely because of having positive UA. Patient with history of recurrent UTIs due to having spina bifida. She had a standing order by her primary care physician and went into the lab yesterday due to increased urinary odor. The patient saw her lab results today and wanted to get treatment for over the weekend. She is without fever or chills. No nausea or vomiting. Review of her labs indicate previous E. coli infections. Patient does have persistent nitrites and leukocytes esterase in her urine. Previous UAs that were positive confirm UTIs had higher nitrates and leukocytes esterase. ALLERGIES Allergen Reactions Banana Unknown Per diagnosis Latex Unknown Per diagnosis PAST MEDICAL HISTORY Diagnosis Date Acute pain of right shoulder 01/21/2019 Chiari malformation type I (HCC) Lymphedema Menarche 09/2011 PMH - PAST MEDICAL HISTORY OF spina bifida PMH - PAST MEDICAL HISTORY OF 01/07/2004 color vision-normal PMH - PAST MEDICAL HISTORY OF bilateral club feet PMH - PAST MEDICAL HISTORY OF broken leg in 10/09 PAST SURGICAL HISTORY Procedure Laterality Date AFP, OPEN SPINA BIFIDA ([facility]) Spina Bifida surgery during infancy APPENDICONEOVESICOSTOMY 06/20/2016 APPENDICONEOVESICOSTOMY 12/2016 COLONOSCOPY FLX DX W/COLLJ SPEC WHEN PFRMD 10/24/2017 Colonoscopy KNEE RIGHT OP SURGERY 10/2012 right knee PAST SURGICAL HISTORY OF Bilateral Foot reconstruction x 4-5 times PAST SURGICAL HISTORY OF laser surgery on birthmark PAST SURGICAL HISTORY OF 10/2010 right knee surgery TONSILLECTOMY AND ADENOIDECTOMY Social History Tobacco Use Smoking status: Never Passive exposure: Never Smokeless tobacco: Never Tobacco comments: no smokers in home Vaping Use Vaping status: Never Used Substance Use Topics Alcohol use: Yes Comment: Not weekly Drug use: No Current Outpatient Medications on File Prior to Visit Medication Sig Phentermine HCl 37.5 mg tablet Take 1 tablet by mouth every afternoon. Drospirenone-Ethinyl Estradiol (PHILIP, 28,) 3-0.02 mg per tablet Take 1 tablet by mouth once daily. Ok to skip placebo week and start on new pack of pills metFORMIN (GLUCOPHAGE) 500 mg tablet Take 1 tablet by mouth daily with dinner. Ascorbic Acid 1,000 mg tablet Take 1 tablet by mouth once daily. albuterol HFA (PROVENTIL HFA, VENTOLIN HFA) 90 mcg/actuation inhaler Inhale 2 Puffs as instructed. Catheter (FEMALE CATHETER) 14 Fr misc 14 [place]an, 16 inch female straight tip intermittent catheter, to use q6 hrs prn urinary retention B.animalis,bifid,infanti s,long (PROBIOTIC 4X ORAL) Take 1 capsule by mouth once daily. polyethylene glycol 3350 (MIRALAX) 17 gram/dose powder One quarter capful added to 800 cc of water and then flushed through the Banda stoma No current facility-administered medications on file prior to visit. ROS: No fever, chills, nausea, vomiting, diarrhea, constipation, shortness of breath, cp, abdominal pain or headache. PHYSICAL EXAMINATION: BP 139/99 Pulse 104 Temp 36.6 ?C (97.8 ?F) Resp 18 Wt 81.2 kg (179 lb) LMP 07/15/2024 (Exact Date) SpO2 99% BMI 30.73 kg/m? General appearance: Well appearing, alert, in no acute distress, well-hydrated, well nourished. and Obese Skin: Skin color, texture, turgor normal, no suspicious rashes or lesions Head: Normocephalic, no masses, lesions, tenderness or abnormalities Lungs: Lungs clear to auscultation. No wheezing, rhonchi, rales. Heart: RRR without murmur, gallop, or rubs. No ectopy Abdomen: Normal abdominal exam, Abdomen soft, non-tender. Bowel sounds normal. No masses, organomegaly, Negative CVA tenderness Extremities: No deformities, edema, skin discoloration, clubbing or cyanosis. Good capillary refill. Musculoskeletal: No joint swelling or tenderness Peripheral pulses: Normal Neuro: Oriented X 3 ASSESSMENT/PLAN: 1. Recurrent UTI (urinary tract infection) - ICD9: 599.0, ICD10: N39.0 recurrent - UA positive for gladys esterase and nitrates - Begin treatment with Macrobid 100 mg BID for 7 days - Patient education for prevention given Awaiting urine culture result Follow-up with primary care provider in 3 to 5 days - NITROFURANTOIN MONOHYDRATE AND MACROCRYSTAL 100 MG ORAL CAP MD Tiffanie Sibley Hoai-Nghia, MD 08/16/2024 7:43 PM Signed URINARY TRACT INFECTION GENERAL INFORMATION: A urinary tract infection (UTI) is an infection of the bladder or kid (more content not included)... [facility] Bacteria Ur Culton Bacteria identified Cx Nom (U) ORGANISM ID: 1 >=100,000 CFU/ml Escherichia coli ORGANISM ID: 1 (ESCHERICHIA COLI) ANTIBIOTIC INTERPRETATION [place]VIN STATUS REFERENCE RANGE Ampicillin S <=4 F Susceptible <=8 , Intermediate >8 , Resistant >16 Cefazolin S 2 F Susceptible 0-16 , Intermediate <0 or >16 , Resistant >16 For uncomplicated urinary tract infections, cefazolin results can be used to predict susceptibility or resistance to cephalexin. Ceftriaxone S <=1 F Susceptible <=1 , Intermediate >1 , Resistant >=4 Cefepime S <=1 F Susceptible <=2 , Susceptible-Dose Dependent >2 , Resistant >=16 Ertapenem S <=0.25 F Susceptible <=0.5 , Intermediate >.5 , Resistant >1 Meropenem S <=0.5 F Susceptible <=1 , Intermediate >1 , Resistant >2 Ampicillin/Sulbact S 4 F Piperacillin/Tazobac S <=2 F Gentamicin S <=2 F Susceptible <=2 , Intermediate >2 , Resistant >=8 Trimeth sulfameth S <=0.5 F Ciprofloxacin S <=0.25 F Susceptible <0.5 , Intermediate >=.5 , Resistant >=1 Nitrofurantoin S 32 F Susceptible <=32 , Intermediate >32 , Resistant >64 Abnormal [facility] Comment on above: Performed By: #### 6 30-4 ####[facility] LABORATORYCLIA [id number] [address] [place] Urinalysis complete panel (U )on 08-15-2024 Bacteria LM.HPF (Urine sed) [#/Area] Many Abnormal None Seen [facility] Comment on above: Order Comment: Speci men Type: URINE SPECIMENOrdering Facility: [facility] Address: [address] [place] [address] Performed By: #### 2 4356-8 ####[facility] LABORATORYCLIA [id number] [place] [address] [place] Bilirubin Ql (U) Negative Normal Negative [facility] Comment on above: Order Comment: Speci men Type: URINE SPECIMENOrdering Facility: [facility] Address: [address] [place] [address] Performed By: #### 2 4356-8 ####[facility] LABORATORYIA [id number] [place] [address] [place] CALCIUM OXALATE CRYSTALS (UA) Few Abnormal None Seen [facility] Comment on above: Order Comment: Speci men Type: URINE SPECIMENOrdering Facility: [facility] Address: [address] [place] [address] Performed By: #### 2 4356-8 ####[facility] LABORATORYIA [id number] [address] [place] Clarity (Unsp spec) Turbid Abnormal Clear [facility] Comment on above: Order Comment: Speci men Type: URINE SPECIMENOrdering Facility: [facility] Address: [address] [place] [address] Performed By: #### 2 4356-8 ####[facility] LABORATORYCLIA [id number] [place] [address] [place] Color (U) Yellow Normal Yellow [facility] Comment on above: Order Comment: Speci men Type: URINE SPECIMENOrdering Facility: [facility] Address: [address] [place] [address] Performed By: #### 2 4356-8 ####[facility] LABORATORYCLIA [id number] [place] [address] [place] Epithelial cells LM.HPF (Urine sed) [#/Area] Few Normal [facility] Comment on above: Order Comment: Speci men Type: URINE SPECIMENOrdering Facility: [facility] Address: [address] [place] [address] Performed By: #### 2 4356-8 ####[facility] LABORATORYCLIA [id number] [address] [place] Glucose Test strip (U) [Mass/Vol] Negative Normal Negative [facility] Comment on above: Order Comment: Speci men Type: URINE SPECIMENOrdering Facility: [facility] Address: [address] [place] [address] Performed By: #### 2 4356-8 ####[facility] LABORATORYCLIA [id number] [place] [address] [place] Hemoglobin Ql (U) Negative Normal Negative [facility] Comment on above: Order Comment: Speci men Type: URINE SPECIMENOrdering Facility: [facility] Address: [address] [place] [address] Performed By: #### 2 4356-8 ####[facility] LABORATORYCLIA [id number] [place] [address] [place] Ketones Ql (U) 1+ Abnormal Negative [facility] Comment on above: Order Comment: Speci men Type: URINE SPECIMENOrdering Facility: [facility] Address: [address] [place] [address] Performed By: #### 2 4356-8 ####[facility] LABORATORYCLIA [id number] [address] Leukocyte esterase Test strip Ql (U) 3+ Abnormal Negative [facility] Comment on above: Order Comment: Speci men Type: URINE SPECIMENOrdering Facility: [facility] Address: [address] [place] [address] Performed By: #### 2 4356-8 ####[facility] LABORATORYCLIA [id number] [address] [place] Nitrite Ql (U) Positive Abnormal Negative [facility] Comment on above: Order Comment: Speci men Type: URINE SPECIMENOrdering Facility: [facility] Address: [address] [place] [address] Performed By: #### 2 4356-8 ####[facility] LABORATORYCLIA [id number] [address] [place] pH (U) 5.0 [pH] Normal 5.0-8.0 [facility] Comment on above: Order Comment: Speci men Type: URINE SPECIMENOrdering Facility: [facility] Address: [address] [place] [address] Performed By: #### 2 4356-8 ####[facility] LABORATORYCLIA [id number] [address] STATES [facility] Protein (U) [Mass/Vol] Negative Normal Negative [facility] Comment on above: Order Comment: Speci men Type: URINE SPECIMENOrdering Facility: [facility] Address: [address] [place] [address] Performed By: #### 2 4356-8 ####[facility] LABORATORYCLIA [id number] [address] [place] RBC LM.HPF (Urine sed) [#/Area] 6-10 /HPF Abnormal 0-3 /HPF [facility] Comment on above: Order Comment: Speci men Type: URINE SPECIMENOrdering Facility: [facility] Address: [address] [place] [address] Performed By: #### 2 4356-8 ####[facility] LABORATORYCLIA [id number] [place] [id number] [facility] Specific gravity (U) [Rel density] 1.024 Normal 1.005-1.030 [facility] Comment on above: Order Comment: Speci men Type: URINE SPECIMENOrdering Facility: [facility] Address: [address] [place] [address] Performed By: #### 2 4356-8 ####[facility] LABORATORYCLIA [id number] [address] Urobilinogen Ql (U) 1+ Abnormal Negative [facility] Comment on above: Order Comment: Speci men Type: URINE SPECIMENOrdering Facility: [facility] Address: [address] [place] [address] Performed By: #### 2 4356-8 ####[facility] LABORATORYCLIA [id number] [address] [place] WBC LM.HPF (Urine sed) [#/Area] /[HPF] Abnormal 0-5 /HPF [facility] Comment on above: Order Comment: Speci men Type: URINE SPECIMENOrdering Facility: [facility] Address: [address] [place] [address] Performed By: #### 2 4356-8 ####[facility] LABORATORYCLIA [id number] [address] OF [facility] ED NOTEon 08-12-2024 ED NOTE HNO ID: [id number] Author: KIKO EASLEY, JUDE Service: Emergency Medicine Author Type: Registered Nurse Type: ED Notes Filed: 08/12/2024 00:26 Note Text: Patient states she's having no cramping or pain at this time Normal [facility] ED PROV NOTEon 08-12-2024 ED PROV NOTE HNO ID: [id number] Author: CELSO STALLWORTH PA-C Service: Emergency Medicine Author Type: Physician Welfare Eligibility Worker Type: ED Provider Notes Filed: 08/12/2024 01:00 Note Text: ED Provider Note Patient Name: Madhuri Paulson : 2000 SERVICE DATE: 08/11/24 History Patient presents with: Vaginal Bleeding: Pt reports starting control a month ago. Pt states she started having stomach pain tonight and ran to the bathroom and noticed a huge clot. 23-year-old female presents with chief complaint of pelvic cramping and bleeding. This started this afternoon, had intense lower abdominal pain, went to the bathroom and passed tissue. She took a picture of it and actually brought tissue with her. She denies any chance of . After some research she was concerned about the possibility of decidual cast. Did recently start a hormone therapy. Has had dysmenorrhea in the past. Denies any excessive bleeding, dizziness lightheadedness or syncope. Denies use of anticoagulation. PAST MEDICAL HISTORY Diagnosis Date Acute pain of right shoulder 01/21/2019 Chiari malformation type I (HCC) Lymphedema Menarche 09/2011 PMH - PAST MEDICAL HISTORY OF spina bifida PMH - PAST MEDICAL HISTORY OF 01/07/2004 color vision-normal PMH - PAST MEDICAL HISTORY OF bilateral club feet PMH - PAST MEDICAL HISTORY OF broken leg in 10/09 PAST SURGICAL HISTORY Procedure Laterality Date AFP, OPEN SPINA BIFIDA ([facility]) Spina Bifida surgery during infancy APPENDICONEOVESICOSTOMY 06/20/2016 APPENDICONEOVESICOSTOMY 12/2016 COLONOSCOPY FLX DX W/COLLJ SPEC WHEN PFRMD 10/24/2017 Colonoscopy KNEE RIGHT OP SURGERY 10/2012 right knee PAST SURGICAL HISTORY OF Bilateral Foot reconstruction x 4-5 times PAST SURGICAL HISTORY OF laser surgery on birthmark PAST SURGICAL HISTORY OF 10/2010 right knee surgery TONSILLECTOMY AND ADENOIDECTOMY FAMILY HISTORY Problem Relation Age of Onset Uterine Cancer Mother Ovarian cancer Mother Anesthesia Problems Maternal Uncle Patient's mother states her brother coded during a procedure as a baby. Not actually diagnosed with anything specific and did not undergo further anesthesia as an adult. Hypertension Maternal Grandmother Breast Cancer Maternal Grandmother Heart Maternal Grandfather Renal Cell Cancer Maternal Grandfather Thyroid Cancer Maternal Grandfather Hypertension Paternal Grandmother Hypertension Paternal Grandfather Heart Paternal Grandfather Social History Tobacco Use Smoking status: Never Smokeless tobacco: Never Tobacco comments: no smokers in home Vaping Use Vaping status: Never Used Substance and Sexual Activity Alcohol use: Yes Comment: Not weekly Drug use: No Sexual activity: Never ALLERGIES Allergen Reactions Banana Unknown Per diagnosis Latex Unknown Per diagnosis Review of Systems All other systems reviewed and are negative. Physical Exam Vitals [08/11/242109] BP Pulse Temp Temp src Resp SpO2 Weight Height 146/72 83 36.8 ?C (98.3 ?F) Oral 20 98 % 86.6 kg (191 lb) -- Physical Exam Vitals and nursing note reviewed. Constitutional: General: She is not in acute distress. Appearance: Normal appearance. She is not ill-appearing or toxic-appearing. HENT: Head: Normocephalic and atraumatic. Eyes: General: No scleral icterus. Conjunctiva/sclera: Conjunctivae normal. Cardiovascular: Rate and Rhythm: Normal rate and regular rhythm. Pulses: Normal pulses. Heart sounds: Normal heart sounds. No murmur heard. No friction rub. No gallop. Pulmonary: Effort: Pulmonary effort is normal. No respiratory distress. Breath sounds: Normal breath sounds. No wheezing or rales. Abdominal: General: Abdomen is flat. Bowel sounds are normal. There is no distension. Palpations: Abdomen is soft. Tenderness: There is no abdominal tenderness. There is no guarding. Musculoskeletal: General: Normal range of motion. Cervical back: Normal range of motion and neck supple. No muscular tenderness. Right lower leg: No edema. Left lower leg: No edema. Skin: General: Skin is warm and dry. Neurological: General: No focal deficit present. Mental Status: She is alert. Mental status is at baseline. Psychiatric: Mood and Affect: Mood normal. Behavior: Behavior normal. Diagnostic Testing ED Labs Ordered and Reviewed COMPLETE BLOOD COUNT AND DIFFERENTIAL - Abnormal; Notable for the following components: Result Value Ref Range RDW-CV 15.6 (*) 11.5 - 15.0 % Platelet Count 433 (*) 150 - 400 k/uL Abs Lymph 4.13 (*) 1.00 - 4.00 k/uL All other components within normal limits COMPREHENSIVE METABOLIC PANEL - Abnormal; Notable for the following components: ALT 72 (*) 13 - 61 U/L Glucose 110 (*) 70 - 100 mg/dL Chloride 108 (*) 98 - 107 mmol/L All other components within normal limits HCG QUALITATIVE - Normal Procedures ED Course / Clinical Impression Clinical (more content not included)... Normal [facility] 08-11-2024 [facility] HNO ID: [id number] Author: ASHLYN SOSA RDMS Service: ? Author Type: Technologist Type: Allied Health Filed: 08/11/2024 22:28 Note Text: Radiology Service Progress Note PATIENT NAME: Madhuri Paulson DATE OF SERVICE: August 11, 2024 TIME: 10:28 PM PATIENT IDENTITY VERIFICATION COMPLETED USING TWO (2) IDENTIFIERS: Name and Date of confirmed by patient verbally. FALL SCREENING: Has the patient had 2 falls in the last year or 1 fall with injury or currently using an Ambulatory Assistive Device (Walker, Cane, Wheelchair, Crutches, etc.)? Emergency Room Patient: Screened in ED PATIENT GENDER DATA: Assigned female at . status: Unknown status: N/A PATIENT RELEVANT IMPLANT DATA REVIEWED: Not Applicable PATIENT PRESENTS WITH AN IMPLANTABLE OR ATTACHED ARCHITECTURAL ASSOCIATE: No RADIOLOGY DEPARTMENT: Ultrasound PERIPHERAL IV DATA: Not applicable SIGNED BY: Ashlyn Sosa RDMS August 11, 2024 10:28 PM [facility] CBC W Auto Differential pane l (Bld)on 08-11-2024 Basophils (Bld) [#/Vol] 0.09 10*3/uL Normal <0.11 [facility] Comment on above: Order Comment: Speci men Type: BLOOD SPECIMEN [facility] Address: [address] [place] [address] Performed By: #### 5 7021-8 #### [facility] CLIA [id number] [address] [place] [address] [place] Basophils/100 WBC (Bld) 0.9 % [facility] Comment on above: Order Comment: Speci men Type: BLOOD SPECIMEN [facility]: [facility] Address: [address] [place] [address] Performed By: #### 5 7021-8 #### [facility] CLIA [id number] [address] [place] [address] [place] Differential cell count method Nom (Bld) Auto [facility] Comment on above: Order Comment: Speci men Type: BLOOD SPECIMEN [facility] Address: [address] [place] [address] Performed By: #### 5 7021-8 #### [facility] CLIA [id number] [address] [place] [address] [place] Eosinophils (Bld) [#/Vol] 0.17 10*3/uL Normal <0.46 [facility] Comment on above: Order Comment: Speci men Type: BLOOD SPECIMEN [facility]: [facility] Address: [address] [place] [address] Performed By: #### 5 7021-8 #### [facility] CLIA [id number] [address] [place] [address] [place] Eosinophils/100 WBC (Bld) 1.6 % Normal [facility] Comment on above: Order Comment: Speci men Type: BLOOD SPECIMEN [facility] Address: [address] [place] [address] Performed By: #### 5 7021-8 #### [facility] CLIA [id number] [address] [place] [address] [place] Erythrocyte distribution width (RBC) [Ratio] 15.6 % High 11.5-15.0 [facility] Comment on above: Order Comment: Speci men Type: BLOOD SPECIMEN [facility] Address: [address] [place] [address] Performed By: #### 5 7021-8 #### [facility] CLIA [id number] [address] [place] [address] [place] Hematocrit (Bld) [Volume fraction] 41.2 % Normal 36.0-46.0 [facility] Comment on above: Order Comment: Speci men Type: BLOOD SPECIMEN [facility]: [facility] Address: [address] [place] [address] Performed By: #### 5 7021-8 #### [facility] CLIA [id number] [address] [place] [address] [place] Hemoglobin (Bld) [Mass/Vol] 13.4 g/dL Normal 11.5-15.5 [facility] Comment on above: Order Comment: Speci men Type: BLOOD SPECIMEN [facility]: [facility] Address: [facility] [place] [address] Performed By: #### 5 7021-8 #### [facility] CLIA [id number] [address] [place] [address] [place] Immature granulocytes (Bld) [#/Vol] 0.03 10*3/uL Normal <0.10 [facility] Comment on above: Order Comment: Speci men Type: BLOOD SPECIMEN [facility]: [facility] Address: [address] [place] [address] Performed By: #### 5 7021-8 #### [facility] CLIA [id number] [address] [place] [address] [place] Immature granulocytes/100 WBC (Bld) 0.3 % Normal [facility] Comment on above: Order Comment: Speci men Type: BLOOD SPECIMEN [facility]: [facility] Address: [address] [place] [address] Performed By: #### 5 7021-8 #### [facility] CLIA [id number] [address] [place] [address] [place] Lymphocytes (Bld) [#/Vol] 4.13 10*3/uL High 1.00-4.00 [facility] Comment on above: Order Comment: Speci men Type: BLOOD SPECIMEN [facility]: [facility] Address: [address] [place] [address] Performed By: #### 5 7021-8 #### [facility] CLIA [id number] [address] [place] [address] [place] Lymphocytes/100 WBC (Bld) 39.4 % Normal [facility] Comment on above: Order Comment: Speci men Type: BLOOD SPECIMEN [facility]: [facility] Address: [address] [place] [address] Performed By: #### 5 7021-8 #### [facility] CLIA [id number] [address] [place] [address] OF [facility] MCH (RBC) [Entitic mass] 27.2 pg Normal 26.0-34.0 [facility] Comment on above: Order Comment: Speci men Type: BLOOD SPECIMEN [facility] Address: [address] [place] [address] Performed By: #### 5 7021-8 #### [facility] CLIA [id number] [address] [place] [address] [place] MCHC (RBC) [Mass/Vol] 32.5 g/dL Normal 30.5-36.0 [facility] Comment on above: Order Comment: Speci men Type: BLOOD SPECIMEN [facility] Address: [address] [place] [address] Performed By: #### 5 7021-8 #### [facility] CLIA [id number] [address] [place] [address] [place] MCV (RBC) [Entitic vol] 83.6 fL Normal 80.0-100.0 [facility] Comment on above: Order Comment: Speci men Type: BLOOD SPECIMEN [facility] Address: [address] [place] [address] Performed By: #### 5 7021-8 #### [facility] CLIA [id number] [address] [place] [address] [place] Monocytes (Bld) [#/Vol] 0.63 10*3/uL Normal <0.87 [facility] Comment on above: Order Comment: Speci men Type: BLOOD SPECIMEN [facility] Address: [address] [place] [address] Performed By: #### 5 7021-8 #### [facility] CLIA [id number] [address] [place] [address] Monocytes/100 WBC (Bld) 6.0 % Normal [facility] Comment on above: Order Comment: Speci men Type: BLOOD SPECIMEN [facility]: [facility] Address: [address] [place] [address] Performed By: #### 5 7021-8 #### [facility] CLIA [id number] [address] [place] [address] [place] Neutrophils (Bld) [#/Vol] 5.43 10*3/uL Normal 1.45-7.50 [facility] Comment on above: Order Comment: Speci men Type: BLOOD SPECIMEN [facility] Address: [address] [place] [address] Performed By: #### 5 7021-8 #### [facility] CLIA [id number] [address] [place] [address] [place] Neutrophils/100 WBC (Bld) 51.8 % Normal [facility] Comment on above: Order Comment: Speci men Type: BLOOD SPECIMEN [facility]: [facility] Address: [address] [place] [address] Performed By: #### 5 7021-8 #### [facility] CLIA [id number] [address] [place] [address] [place] Nucleated RBC (Bld) [#/Vol] 10*3/uL Normal <0.01 [facility] Comment on above: Order Comment: Speci men Type: BLOOD SPECIMEN [facility]: [facility] Address: [address] [place] [address] Performed By: #### 5 7021-8 #### [facility] CLIA [id number] [address] [place] [address] [place] Nucleated RBC/100 WBC (Bld) [Ratio] 0.0 /100 WBC Normal [facility] Comment on above: Order Comment: Speci men Type: BLOOD SPECIMEN [facility]: [facility] Address: [address] [place] [address] Performed By: #### 5 7021-8 #### [facility] CLIA [id number] [address] [place] [address] [place] Platelet mean volume (Bld) [Entitic vol] 10.6 fL Normal 9.0-12.7 [facility] Comment on above: Order Comment: Speci men Type: BLOOD SPECIMEN [facility] Address: [address] [place] [address] Performed By: #### 5 7021-8 #### [facility] CLIA [id number] [address] [place], [place] [address] [facility] [place] Platelets (Bld) [#/Vol] 433 10*3/uL High 150-400 [facility] Comment on above: Order Comment: Speci men Type: BLOOD SPECIMEN [facility]ing [facility]: [facility] Address: [address] [place], [place] [address] Performed By: #### 5 7021-8 #### [facility] CLIA [id number] [address] [place], [place] [address] [facility] [place] RBC (Bld) [#/Vol] 4.93 10*6/uL Normal 3.90-5.20 [facility] Comment on above: Order Comment: Speci men Type: BLOOD SPECIMEN [facility]ing [facility]: [facility] Address: [address] [place], [place] [address] Performed By: #### 5 7021-8 #### [facility] CLIA [id number] [address] [place] [address] [place] WBC (Bld) [#/Vol] 10.48 10*3/uL Normal 3.70-11.00 [facility] Comment on above: Order Comment: Speci men Type: BLOOD SPECIMEN [facility]ing [facility]: [facility] Address: [address] [place] [address] Performed By: #### 5 7021-8 #### [facility] CLIA [id number] [address] [place], [place] [address] [facility] [place] Comprehensive metabolic 2000 panelon 08-11-2024 Albumin [Mass/Vol] 4.0 g/dL Normal 3.2-5.0 [facility] Comment on above: Order Comment: Speci men Type: BLOOD SPECIMEN [facility]ing [facility]: [facility] Address: [address] [place] [address] Performed By: #### 2 4323-8 #### [facility] CLIA [id number] [address] [place] [address] [place] ALP [Catalytic activity/Vol] 72 U/L Normal 45-117 [facility] Comment on above: Order Comment: Speci men Type: BLOOD SPECIMEN [facility]ing [facility]: [facility] Address: [address] [place] [address] Performed By: #### 2 4323-8 #### [facility] CLIA [id number] [address] [place] [address] [place] ALT [Catalytic activity/Vol] 72 U/L High 13-61 [facility] Comment on above: Order Comment: Speci men Type: BLOOD SPECIMEN Ordering Facility: [facility] Address: [address] [place] [address] Result Comment: Resu lts may be falsely depressed after the administration of Sulfasalazine and/or Sulfapyridine. Performed By: #### 2 4323-8 #### [facility] CLIA [id number] [address] [place] [address] [place] Anion gap [Moles/Vol] 8 mmol/L Normal 5-16 [facility] Comment on above: Order Comment: Speci jose Type: BLOOD SPECIMEN [facility]ing [facility]: [facility] Address: [address] [place] [address] Performed By: #### 2 4323-8 #### [facility] CLIA [id number] [address] [place] [address] [place] AST [Catalytic activity/Vol] 29 U/L Normal 8-34 [facility] Comment on above: Order Comment: Speci men Type: BLOOD SPECIMEN [facility]ing [facility]: [facility] Address: [address] [place] [address] Result Comment: Resu lts may be falsely depressed after the administration of Sulfasalazine and/or Sulfapyridine. Performed By: #### 2 4323-8 #### [facility] CLIA [id number] [address] [place] [address] [place] Bilirubin [Mass/Vol] 0.2 mg/dL Normal 0.2-1.0 [facility] Comment on above: Order Comment: Speci men Type: BLOOD SPECIMEN [facility]ing [facility]: [facility] Address: [address] [place] [address] Performed By: #### 2 4323-8 #### [facility] CLIA [id number] [address] [place], [place] [address] [place] Calcium [Mass/Vol] 9.8 mg/dL Normal 8.5-10.5 [facility] Comment on above: Order Comment: Speci men Type: BLOOD SPECIMEN [facility] [facility] Address: [address] [place] [address] Performed By: #### 2 4323-8 #### [facility] CLIA [id number] [address] [place] [address] [place] Chloride [Moles/Vol] 108 mmol/L High 98-107 [facility] Comment on above: Order Comment: Speci men Type: BLOOD SPECIMEN Ordering Facility: [facility] Address: [address] [place] [address] Performed By: #### 2 4323-8 #### [facility] CLIA [id number] [address] [place] [address] [place] CO2 [Moles/Vol] 26 mmol/L Normal 21-32 [facility] Comment on above: Order Comment: Speci men Type: BLOOD SPECIMEN Ordering Facility: [facility] Address: [address] [place] [address] Performed By: #### 2 4323-8 #### [facility] CLIA [id number] [address] [place] [address] [place] Creatinine [Mass/Vol] 0.58 mg/dL Normal 0.51-0.95 [facility] Comment on above: Order Comment: Speci men Type: BLOOD SPECIMEN Ordering Facility: [facility] Address: [address] [place] [address] Result Comment: [place] ents receiving either N-Acetylcysteine (NAC) or Metamizole prior to venipuncture, may have falsely depressed results. Performed By: #### 2 4323-8 #### [facility] CLIA [id number] [address] [place] [address] [place] Creatinine and Glomerular filtration rate.predicted panel (S/P/Bld) 129 mL/min/1.73m??? Normal >=60 [facility] Comment on above: Order Comment: Donald garcia Type: BLOOD SPECIMEN Ordering Facility: [facility] Address: [address] [place] [address] Result Comment: Carmen mated Glomerular Filtration Rate (eGFR) is calculated using the 2020 CKD-EPI creatinine equation. This equation utilizes serum creatinine, sex, and age as parameters. The creatinine assay has traceable calibration to isotope dilution-mass spectrometry. Refer to KDIGO guidelines for clinical interpretation. In patients with unstable renal function, e.g. those with acute kidney injury, the eGFR may not accurately reflect actual GFR. Performed By: #### 2 4323-8 #### [facility] CLIA [id number] [address] [place] [address] [place] Glucose [Mass/Vol] 110 mg/dL High 70-100 [facility] Comment on above: Order Comment: Donald garcia Type: BLOOD SPECIMEN Ordering Facility: [facility] Address: [address] [place] [address] Result Comment: The [place] Diabetes Association (ADA) provides guidance for cutoff values for fasting glucose and random glucose. The ADA defines fasting as no caloric intake for at least 8 hours. Fasting plasma glucose results between 100 to 125 mg/dL indicate increased risk for diabetes (prediabetes). Fasting plasma glucose results greater than or equal to 126 mg/dL meet the criteria for diagnosis of diabetes. In the absence of unequivocal hyperglycemia, results should be confirmed by repeat testing. In a patient with classic symptoms of hyperglycemia or hyperglycemic crisis, random plasma glucose results greater than or equal to 200 mg/dL meet the criteria for diagnosis of diabetes. Reference: Standards of Medical Care in Diabetes 2016, [place] Diabetes Association. Diabetes Care. 2016.39(Suppl 1). Results may be falsely elevated after the administration of Sulfapyridine. Results may be falsely depressed after the administration of Sulfasalazine. Performed By: #### 2 4323-8 #### [facility] CLIA [id number] [address] [place] [address] [place] Potassium [Moles/Vol] 4.0 mmol/L Normal 3.5-5.1 [facility] Comment on above: Order Comment: Speci men Type: BLOOD SPECIMEN Ordering Facility: [facility] Address: [address] [place] [address] Performed By: #### 2 4323-8 #### [facility] CLIA [id number] [address] [place] [address] [place] Protein [Mass/Vol] 7.1 g/dL Normal 6.0-8.5 [facility] Comment on above: Order Comment: Speci men Type: BLOOD SPECIMEN Ordering Facility: [facility] Address: [address] [place] [address] Performed By: #### 2 4323-8 #### [facility] CLIA [id number] [address] [place] [address] [place] Sodium [Moles/Vol] 142 mmol/L Normal 136-145 [facility] Comment on above: Order Comment: Speci men Type: BLOOD SPECIMEN Ordering Facility: [facility] Address: [address] [place] [address] Performed By: #### 2 4323-8 #### [facility] CLIA [id number] [address] [place] [address] [place] Urea nitrogen [Mass/Vol] 14 mg/dL Normal 7-26 [facility] Comment on above: Order Comment: Speci men Type: BLOOD SPECIMEN Ordering Facility: [facility] Address: [address] [place] [address] Performed By: #### 2 4323-8 #### [facility] CLIA [id number] [address] [place] [address] [place] ED Triage Noteon 08-11-2024 ED Triage Note HNO ID: [id number] Author: CHRISTIE POLO PA-C Service: ? Author Type: Physician Welfare Eligibility Worker Type: ED Triage Notes Filed: 08/11/2024 21:13 Note Text: ED TRIAGE PROVIDER NOTE Patient Name: Madhuri Paulson Service Date: 08/11/24 BRIEF HPI: This is a 23 year old female who presents to the ED with: Abnormal uterine bleeding. States that she recently started an oral contraceptive pill this past month menstrual. This is her first day of her period. She states that she passed an abnormally large clot today. She feels lightheaded. No bleeding disorders. Does have history of spina bifida and Chiari malformation. Mom has history of ovarian cancer. BRIEF EXAM: NAD Awake and Alert Non labored breathing No focal neurological deficits Abdomen soft, nontender. INITIAL WORKUP AND DECISION MAKING: Orders Placed This Encounter US FEMALE PELVIS TRANSVAG CBC + AUTO DIFF COMPREHENSIVE METABOLIC PANEL (BMP+LFT) HCG Qualitative SIGNATURE: Christie Polo PA-C Normal [facility] HCG QUALITATIVEon 08-11-2024 HCG, QUALITATIVE Negative Normal Negative [facility] Comment on above: Order Comment: Speci men Type: BLOOD SPECIMEN Ordering Facility: [facility] Address: [address] [place] [address] Performed By: #### H CG #### [facility] CLIA [id number] [address] [place] [address] [place] FEMALE PELVIS TRANSABD LT Don 08-11-2024 FEMALE PELVIS TRANSABD LTD * * *Final Report* * * DATE OF EXAM: Aug 11 2024 10:25PM RHU 1059 - FEMALE PELVIS TRANSABD LTD / PROCEDURE REASON: Pelvic pain, negative beta-HCG, 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 Images were obtained and stored in a permanent archive. MQ: [facility]_2021 COMPARISON: Pelvic ultrasound 07/22/2024 RESULT: Uterus: -Size: 6.2 x 2.8 x 3.7 cm -Orientation: Anteverted -Endometrial echo complex: Evaluation of the endometrium was adequate. No endometrial abnormality. The endometrial echo complex measured 0.4 cm. -Cervix: Unremarkable. -Adenomyosis assessment: There are no sonographic findings of adenomyosis. -Fibroids: There are no fibroids. Right Ovary: 2.8 x 1.5 x 1.9 cm - Normal sonographic appearance with physiologic follicles. Left Ovary: 3.0 x 1.9 x 2.0 cm - Normal sonographic appearance with physiologic follicles. Free Fluid: No abnormal free fluid is present. IMPRESSION: Normal sonographic appearance of the female pelvis. 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 Images were obtained and stored in a permanent archive. MQ: [facility]_2021 COMPARISON: Pelvic ultrasound 07/22/2024 RESULT: Uterus: -Size: 6.2 x 2.8 x 3.7 cm -Orientation: Anteverted -Endometrial echo complex: Evaluation of the endometrium was adequate. No endometrial abnormality. The endometrial echo complex measured 0.4 cm. -Cervix: Unremarkable. -Adenomyosis assessment: There are no sonographic findings of adenomyosis. -Fibroids: There are no fibroids. Right Ovary: 2.8 x 1.5 x 1.9 cm - Normal sonographic appearance with physiologic follicles. Left Ovary: 3.0 x 1.9 x 2.0 cm - Normal sonographic appearance with physiologic follicles. Free Fluid: No abnormal free fluid is present. IMPRESSION: Normal sonographic appearance of the female pelvis. Bilingual Case Manager: [facility] Transcribe Date/Time: Aug 12 2024 12:42A Dictated by : FRANKY RIGGS MD This examination was interpreted and the report reviewed and electronically signed by: FRANKY RIGGS MD on Aug 12 2024 12:47AM EST [id number] [facility] Rufina 07-31-2024 JOSEFA Telephone (FAMPWS) -------- PAULSONMADHURI JOHNSON ([id number]) 2000 F T Date Time Provider Department 07/31/24 [facility] During your visit today, we recorded the following information about you: Caitlin Curtis APRN.SIGNAL INSPECTOR 07/31/2024 7:45 AM Signed Please call patient and let her know that lab work results look good. No concerns. X-ray is also normal without concerns. I see she called in about cancelling appointment for today due to symptoms all improved. If prior symptoms resolved, OK to cancel but if any concerns at all I would keep appointment so I can look at the area. Thank you, Caitlin Curtis APRN.Shannon Barrera MA 07/31/2024 11:36 AM Signed Left message to return call MARILY Pierre Linda M, LPN 07/31/2024 11:37 AM Signed Left message to return call. Fernanda Stahl LPN 07/31/2024 12:09 PM Signed Patient notified and appointment cancelled as requested by patient. Patient is improving. Fernanda Stahl LPN Allergies As of Date: 07/31/2024 Noted Allergy Reaction BANANA 10/05/2010 16 - Unknown Comments: Per diagnosis LATEX 10/18/2002 16 - Unknown Comments: Per diagnosis Date Reviewed: 07/29/2024 Reviewed by: Caitlin Curtis APRN.SIGNAL INSPECTOR - Fully Assessed Reason for Visit: Results [95] Prescriptions as of 07/31/2024 - cephALEXin (KEFLEX) 500 mg capsule Take 1 capsule by mouth four times daily for 10 days. - sulfamethoxazole-trimeth oprim (BACTRIM DS) 800-160 mg per tablet Take 1 tablet by mouth two times a day for 10 days. - Drospirenone-Ethinyl Estradiol (PHILIP, 28,) 3-0.02 mg per tablet Take 1 tablet by mouth once daily. Ok to skip placebo week and start on new pack of pills - Phentermine HCl (ADIPEX-P) 37.5 mg tablet Take 1 tablet by mouth once daily for 30 days. BMI 33 - metFORMIN (GLUCOPHAGE) 500 mg tablet Take 1 tablet by mouth daily with dinner. - Ascorbic Acid 1,000 mg tablet Take 1 tablet by mouth once daily. - albuterol HFA (PROVENTIL HFA, VENTOLIN HFA) 90 mcg/actuation inhaler Inhale 2 Puffs as instructed. - acetaminophen (TYLENOL) 500 mg tablet 2 tablets by ORAL/FEEDING TUBE route every 8 hours as needed for pain. - Catheter (FEMALE CATHETER) 14 Fr misc 14 [place]an, 16 inch female straight tip intermittent catheter, to use q6 hrs prn urinary retention - B.animalis,bifid,infanti s,long (PROBIOTIC 4X ORAL) Take 1 capsule by mouth once daily. 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] 10/11/2010 Constipation [K59.00] 02/18/2014 Abnormality of gait [R26.9] 03/03/2015 Thoracic outlet syndrome [G54.0] 09/17/2018 Scapulothoracic bursitis of right shoulder [M75*01/21/2019 Acute pain of right shoulder [M25.511] 01/21/2019 06/29/2020 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] Lymphedema [I89.0] Neurogenic bowel [K59.2] 06/20/2016 Obese [E66.9] Obesity, Class I, BMI 30-34.9 [E66.811] 12/15/2023 S/P brain surgery [Z98.890] 12/15/2023 Postoperative pain [G89.18] 12/18/2023 Routine physical examination [Z00.00] 12/27/2023 Recurrent UTI (urinary tract infection) [N39.0] 07/16/2024 Dysmenorrhea [N94.6] 07/16/2024 Neurogenic bladder [N31.9] 07/16/2024 Encounter Status:Closed by FERNANDA STAHL on 07/31/24 Normal [facility] Bacteria Bld Culton 07-29-19 Bacteria identified Cx Nom (Bld) CULTURE, BLOOD: No growth 5 days Normal [facility] Comment on above: Performed By: #### 6 00-7 ####[facility] [id number] [place] [address] [place] CBC W Auto Differential pane l (Bld)on 07-29-2024 Basophils (Bld) [#/Vol] 0.09 10*3/uL Normal <0.11 [facility] Comment on above: Order Comment: Speci men Type: BLOOD SPECIMENOrdering Facility: [facility] Address: [address] [place] [address] Performed By: #### 5 7021-8 ####[facility] [id number] [facility] [place] [address] [place] Basophils/100 WBC (Bld) 0.9 % Normal [facility] Comment on above: Order Comment: Speci men Type: BLOOD SPECIMENOrdering Facility: [facility] Address: [address] [place] [address] Performed By: #### 5 7021-8 ####[facility] [id number] [place] [address] [place] Differential cell count method Nom (Bld) Auto Normal [facility] Comment on above: Order Comment: Speci men Type: BLOOD SPECIMENOrdering Facility: [facility] Address: [address] [place] [address] Performed By: #### 5 7021-8 ####[facility] [id number] [place] [address] [place] Eosinophils (Bld) [#/Vol] 0.18 10*3/uL Normal <0.46 [facility] Comment on above: Order Comment: Speci men Type: BLOOD SPECIMENOrdering Facility: [facility] Address: [address] [place] [address] Performed By: #### 5 7021-8 ####[facility] [id number] [place] [address] [place] Eosinophils/100 WBC (Bld) 1.9 % Normal [facility] Comment on above: Order Comment: Speci men Type: BLOOD SPECIMENOrdering Facility: [facility] Address: [address] [place] [address] Performed By: #### 5 7021-8 ####[facility] [id number] [place] [address] [place] Erythrocyte distribution width (RBC) [Ratio] 16.0 % High 11.5-15.0 [facility] Comment on above: Order Comment: Speci men Type: BLOOD SPECIMENOrdering Facility: [facility] Address: [address] [place] [address] Performed By: #### 5 7021-8 ####[facility] [id number] [place] [address] [place] Hematocrit (Bld) [Volume fraction] 39.3 % Normal 36.0-46.0 [facility] Comment on above: Order Comment: Speci men Type: BLOOD SPECIMENOrdering Facility: [facility] Address: [address] [place] [address] Performed By: #### 5 7021-8 ####[facility] [id number] [place] [address] [place] Hemoglobin (Bld) [Mass/Vol] 12.6 g/dL Normal 11.5-15.5 [facility] Comment on above: Order Comment: Speci men Type: BLOOD SPECIMENOrdering Facility: [facility] Address: [address] [place] [address] Performed By: #### 5 7021-8 ####[facility] [id number] [place] [address] [place] Immature granulocytes (Bld) [#/Vol] 0.04 10*3/uL Normal <0.10 [facility] Comment on above: Order Comment: Speci men Type: BLOOD SPECIMENOrdering Facility: [facility] Address: [address] [place] [address] Performed By: #### 5 7021-8 ####[facility] [id number] [place] [address] [place] Immature granulocytes/100 WBC (Bld) 0.4 % Normal [facility] Comment on above: Order Comment: Speci men Type: BLOOD SPECIMENOrdering Facility: [facility] Address: [address] [place] [address] Performed By: #### 5 7021-8 ####[facility] [id number] [place] [address] [place] Lymphocytes (Bld) [#/Vol] 3.38 10*3/uL Normal 1.00-4.00 [facility] Comment on above: Order Comment: Speci men Type: BLOOD SPECIMENOrdering Facility: [facility] Address: [address] [place] [address] Performed By: #### 5 7021-8 ####[facility] [id number] [place] [address] [place] Lymphocytes/100 WBC (Bld) 35.4 % Normal [facility] Comment on above: Order Comment: Speci men Type: BLOOD SPECIMENOrdering Facility: [facility] Address: [address] [place] [address] Performed By: #### 5 7021-8 ####[facility]IA [id number] [place] [address] [place] MCH (RBC) [Entitic mass] 27.3 pg Normal 26.0-34.0 [facility] Comment on above: Order Comment: Speci men Type: BLOOD SPECIMENOrdering Facility: [facility] Address: [address] [place] [address] Performed By: #### 5 7021-8 ####[facility] [id number] [place] [address] [place] MCHC (RBC) [Mass/Vol] 32.1 g/dL Normal 30.5-36.0 [facility] Comment on above: Order Comment: Speci men Type: BLOOD SPECIMENOrdering Facility: [facility] Address: [address] [place] [address] Performed By: #### 5 7021-8 ####[facility] [id number] [place] [address] [place] MCV (RBC) [Entitic vol] 85.1 fL Normal 80.0-100.0 [facility] Comment on above: Order Comment: Speci men Type: BLOOD SPECIMENOrdering Facility: [facility] Address: [address] [place] [address] Performed By: #### 5 7021-8 ####[facility] LABIA [id number] [place] [address] [place] Monocytes (Bld) [#/Vol] 0.48 10*3/uL Normal <0.87 [facility] Comment on above: Order Comment: Speci men Type: BLOOD SPECIMENOrdering Facility: [facility] Address: [address] [place] [address] Performed By: #### 5 7021-8 ####[facility] [id number] [place] [address] [place] Monocytes/100 WBC (Bld) 5.0 % Normal [facility] Comment on above: Order Comment: Speci men Type: BLOOD SPECIMENOrdering Facility: [facility] Address: [address] [place] [address] Performed By: #### 5 7021-8 ####[facility] [id number] [place] [address] [place] Neutrophils (Bld) [#/Vol] 5.39 10*3/uL Normal 1.45-7.50 [facility] Comment on above: Order Comment: Speci men Type: BLOOD SPECIMENOrdering Facility: [facility] Address: [address] [place] [address] Performed By: #### 5 7021-8 ####[facility]CL[facility] [id number] [place] [address] [place] Neutrophils/100 WBC (Bld) 56.4 % Normal [facility] Comment on above: Order Comment: Speci men Type: BLOOD SPECIMENOrdering Facility: [facility] Address: [address] [place] [address] Performed By: #### 5 7021-8 ####[facility]CLIA [id number] [place] [id number] [place] Nucleated RBC (Bld) [#/Vol] 10*3/uL Normal <0.01 [facility] Comment on above: Order Comment: Speci men Type: BLOOD SPECIMENOrdering Facility: [facility] Address: [address] [place], [place] [address] Performed By: #### 5 7021-8 ####[facility]CLIA [id number] [place] [address] [place] Nucleated RBC/100 WBC (Bld) [Ratio] 0.0 /100 WBC Normal [facility] Comment on above: Order Comment: Speci men Type: BLOOD SPECIMENOrdering Facility: [facility] Address: [address] [place] [address] Performed By: #### 5 7021-8 ####[facility]CL[facility] [id number] [place] [address] [place] Platelet mean volume (Bld) [Entitic vol] 11.7 fL Normal 9.0-12.7 [facility] Comment on above: Order Comment: Speci men Type: BLOOD SPECIMENOrdering Facility: [facility] Address: [address] [place] [address] Performed By: #### 5 7021-8 ####[facility] LABIA [id number] [place] [address] [place] Platelets (Bld) [#/Vol] 446 10*3/uL High 150-400 [facility] Comment on above: Order Comment: Speci men Type: BLOOD SPECIMENOrdering Facility: [facility] Address: [address] [place] [address] Performed By: #### 5 7021-8 ####[facility] LABIA [id number] [place] [address] [place] RBC (Bld) [#/Vol] 4.62 10*6/uL Normal 3.90-5.20 [facility] Comment on above: Order Comment: Speci men Type: BLOOD SPECIMENOrdering Facility: [facility] Address: [address] [place] [address] Performed By: #### 5 7021-8 ####[facility]CL[facility] [id number] [place] [address] [place] WBC (Bld) [#/Vol] 9.56 10*3/uL Normal 3.70-11.00 [facility] Comment on above: Order Comment: Speci men Type: BLOOD SPECIMENOrdering Facility: [facility] Address: [address] [place] [address] Performed By: #### 5 7021-8 ####[facility]CLIA [id number] [address] [id number] [id number] [place] [facility] CNOVon 07-29-2024 CNOV Office Visit (FAMPWS ) -------- MAHDURI PAULSON ([id number]) 2000 F T Date Time Provider Department 07/29/24 9:00 AM [facility] During your visit today, we recorded the following information about you: Temperature Pulse Respiration Blood pressure 98.7 degrees 110/minute 14/minute 110/70 Weight 86.6 kg Caitlin Curtis, RN CLINICAL.SIGNAL INSPECTOR 07/29/2024 9:59 AM Signed Chief Complaint Patient presents with: lft second to end toe red swollen into foot ilsa to walk: Has no feeling in foot due to disability HPI Madhuri Paulson is a 23 year old female who presents here today for Above Complaints. Madhuri is an established patient of Dr. Paco DO. Concerns today... Pt was seen in express care yesterday d/t L 4th toe red and swollen. No known injury. Hx of spina bifida so no feeling in feet at baseline. Dx with cellulitis and prescribed bactrim BID x 10 days. Pt following up today because symptoms have worsened. Toe is now more red and swollen despite starting antibiotic. Redness is spreading up into top of foot. Pt also reports significant chills last night -- unknown about fever because never took temperature. Past medical history, appointments, medications, allergies reviewed. Previous Medical History PAST MEDICAL HISTORY Diagnosis Date Acute pain of right shoulder 01/21/2019 Chiari malformation type I (HCC) Lymphedema Menarche 09/2011 PMH - PAST MEDICAL HISTORY OF spina bifida PMH - PAST MEDICAL HISTORY OF 01/07/2004 color vision-normal PMH - PAST MEDICAL HISTORY OF bilateral club feet PMH - PAST MEDICAL HISTORY OF broken leg in 10/09 Previous Surgical History PAST SURGICAL HISTORY Procedure Laterality Date AFP, OPEN SPINA BIFIDA ([facility]) Spina Bifida surgery during infancy APPENDICONEOVESICOSTOMY 06/20/2016 APPENDICONEOVESICOSTOMY 12/2016 COLONOSCOPY FLX DX W/COLLJ SPEC WHEN PFRMD 10/24/2017 Colonoscopy KNEE RIGHT OP SURGERY 10/2012 right knee PAST SURGICAL HISTORY OF Bilateral Foot reconstruction x 4-5 times PAST SURGICAL HISTORY OF laser surgery on birthmark PAST SURGICAL HISTORY OF 10/2010 right knee surgery TONSILLECTOMY AND ADENOIDECTOMY Family History FAMILY HISTORY Problem Relation Age of Onset Uterine Cancer Mother Ovarian cancer Mother Anesthesia Problems Maternal Uncle Patient's mother states her brother coded during a procedure as a baby. Not actually diagnosed with anything specific and did not undergo further anesthesia as an adult. Hypertension Maternal Grandmother Breast Cancer Maternal Grandmother Heart Maternal Grandfather Renal Cell Cancer Maternal Grandfather Thyroid Cancer Maternal Grandfather Hypertension Paternal Grandmother Hypertension Paternal Grandfather Heart Paternal Grandfather Patient Allergies ALLERGIES Allergen Reactions Banana Unknown Per diagnosis Latex Unknown Per diagnosis Current Medications Current Outpatient Medications on File Prior to Visit Medication Sig sulfamethoxazole-trimeth oprim (BACTRIM DS) 800-160 mg per tablet Take 1 tablet by mouth two times a day for 10 days. Drospirenone-Ethinyl Estradiol (PHILIP, 28,) 3-0.02 mg per tablet Take 1 tablet by mouth once daily. Ok to skip placebo week and start on new pack of pills Phentermine HCl (ADIPEX-P) 37.5 mg tablet Take 1 tablet by mouth once daily for 30 days. BMI 33 metFORMIN (GLUCOPHAGE) 500 mg tablet Take 1 tablet by mouth daily with dinner. Ascorbic Acid 1,000 mg tablet Take 1 tablet by mouth once daily. acetaminophen (TYLENOL) 500 mg tablet 2 tablets by ORAL/FEEDING TUBE route every 8 hours as needed for pain. Catheter (FEMALE CATHETER) 14 Fr misc 14 Chilean, 16 inch female straight tip intermittent catheter, to use q6 hrs prn urinary retention B.animalis,bifid,infanti s,long (PROBIOTIC 4X ORAL) Take 1 capsule by mouth once daily. polyethylene glycol 3350 (MIRALAX) 17 gram/dose powder One quarter capful added to 800 cc of water and then flushed through the Banda stoma albuterol HFA (PROVENTIL HFA, VENTOLIN HFA) 90 mcg/actuation inhaler Inhale 2 Puffs as instructed. (Patient not taking: Reported on 07/28/2024) No current facility-administered medications on file prior to visit. Social History Social History Tobacco Use Smoking status: Never Smokeless tobacco: Never Tobacco comments: no smokers in home Vaping Use Vaping status: Never Used Substance Use Topics Alcohol use: Yes Comment: Not weekly Drug use: No REVIEW OF SYSTEMS: as above Reviewed relevant PMHx, PSHx, Social Hx, current medications and allergies. Review of Symptoms REVIEW OF SYSTEMS See HPI. EXAM: BP 110/70 (BP Site: Left Arm, BP Position: Sitting, BP Cuff Size: Large Adult) Pulse 110 Temp 37.1 ?C (98.7 ?F) Resp 14 Wt 86.6 kg (191 lb) LMP 07/15/2024 (Exact Date) SpO2 99% BMI 32.79 kg/m? General Appearan (more content not included)... Normal [facility] Comprehensive metabolic 2000 panelon 07-29-2024 Albumin [Mass/Vol] 4.5 g/dL Normal 3.9-4.9 [facility] [place] Comment on above: Order Comment: Speci men Type: BLOOD SPECIMENOrdering Facility: [facility] Address: [address] [place] [address] Performed By: #### 2 4323-8 ####[facility] LABCLIA [id number] [facility] [id number] [address] [place] ALP [Catalytic activity/Vol] 73 U/L Normal 34-123 [facility] Comment on above: Order Comment: Speci men Type: BLOOD SPECIMENOrdering Facility: [facility] Address: [address] [place] [address] Performed By: #### 2 4323-8 ####[facility] LABCLIA [id number] [place] [id number] [place] ALT [Catalytic activity/Vol] 63 U/L High 7-38 [facility] Comment on above: Order Comment: Speci men Type: BLOOD SPECIMENOrdering Facility: [facility] Address: [address] [place] [address] Performed By: #### 2 4323-8 ####[facility] LABCLIA [id number] [place] [address] [place] Anion gap [Moles/Vol] 14 mmol/L Normal 8-15 [facility] Comment on above: Order Comment: Speci men Type: BLOOD SPECIMENOrdering Facility: [facility] Address: [address] [place] [address] Performed By: #### 2 4323-8 ####[facility] LABCLIA [id number] [place] [address] [place] AST [Catalytic activity/Vol] 30 U/L Normal 13-35 [facility] Comment on above: Order Comment: Speci men Type: BLOOD SPECIMENOrdering Facility: [facility] Address: [address] [place] [address] Performed By: #### 2 4323-8 ####[facility] LABCLIA [id number] [place] [address] [place] Bilirubin [Mass/Vol] 0.3 mg/dL Normal 0.2-1.3 [facility] Comment on above: Order Comment: Speci men Type: BLOOD SPECIMENOrdering Facility: [facility] Address: [address] [place], [place] [address] Performed By: #### 2 4323-8 ####[facility] LABCLIA [id number] [place] [address] [place] Calcium [Mass/Vol] 9.6 mg/dL Normal 8.5-10.2 [facility] Comment on above: Order Comment: Speci men Type: BLOOD SPECIMENOrdering Facility: [facility] Address: [address] [place] [address] Performed By: #### 2 4323-8 ####[facility] LABCLIA [id number] [place] [address] [place] Chloride [Moles/Vol] 105 mmol/L Normal 98-107 [facility] Comment on above: Order Comment: Speci men Type: BLOOD SPECIMENOrdering Facility: [facility] Address: [address] [place] [address] Performed By: #### 2 4323-8 ####[facility] LABCLIA [id number] [place] [address] [place] CO2 [Moles/Vol] 19 mmol/L Low 22-30 [facility] Comment on above: Order Comment: Speci men Type: BLOOD SPECIMENOrdering Facility: [facility] Address: [address] [place] [address] Performed By: #### 2 4323-8 ####[facility] LABCLIA [id number] [place] [address] [place] Creatinine [Mass/Vol] 0.78 mg/dL Normal 0.58-0.96 [facility] Comment on above: Order Comment: Speci men Type: BLOOD SPECIMENOrdering Facility: [facility] Address: [address] [place] [address] Performed By: #### 2 4323-8 ####[facility] LABCLIA [id number] [place] [address] [place] Creatinine and Glomerular filtration rate.predicted panel (S/P/Bld) 108 mL/min/1.73m??? Normal >=60 [facility] Comment on above: Order Comment: Speci men Type: BLOOD SPECIMENOrdering Facility: [facility] Address: [address] [place] [address] Result Comment: Carmen mated Glomerular Filtration Rate (eGFR) is calculated using the 2020 CKD-EPI creatinine equation. This equation utilizes serum creatinine, sex, and age as parameters. The creatinine assay has traceable calibration to isotope dilution-mass spectrometry. Refer to KDIGO guidelines for clinical interpretation. In patients with unstable renal function, e.g. those with acute kidney injury, the eGFR may not accurately reflect actual GFR. Performed By: #### 2 4323-8 ####[facility] LABCLIA [id number] [place] [id number] [place] Glucose [Mass/Vol] 84 mg/dL Normal 74-99 [facility] Comment on above: Order Comment: Donald garcia Type: BLOOD SPECIMENOrdering Facility: [facility] Address: [address] [place] [address] Result Comment: The [place] Diabetes Association (ADA) provides guidance for cutoff values for fasting glucose and random glucose. The ADA defines fasting as no caloric intake for at least 8 hours. Fasting plasma glucose results between 100 to 125 mg/dL indicate increased risk for diabetes (prediabetes). Fasting plasma glucose results greater than or equal to 126 mg/dL meet the criteria for diagnosis of diabetes. In the absence of unequivocal hyperglycemia, results should be confirmed by repeat testing. In a patient with classic symptoms of hyperglycemia or hyperglycemic crisis, random plasma glucose results greater than or equal to 200 mg/dL meet the criteria for diagnosis of diabetes. Reference: Standards of Medical Care in Diabetes 2016, [place] Diabetes Association. Diabetes Care. 2016.39(Suppl 1). Performed By: #### 2 4323-8 ####[facility] LABCLIA [id number] [place] [id number] [place] Potassium [Moles/Vol] 4.3 mmol/L Normal 3.7-5.1 [facility] Comment on above: Order Comment: Donald garcia Type: BLOOD SPECIMENOrdering Facility: [facility] Address: [address] [place] [address] Performed By: #### 2 4323-8 ####[facility] LABCLIA [id number] [address] [address] [place] Protein [Mass/Vol] 7.2 g/dL Normal 6.3-8.0 [facility] Comment on above: Order Comment: Speci men Type: BLOOD SPECIMENOrdering Facility: [facility] Address: [address] [place] [address] Performed By: #### 2 4323-8 ####[facility] LABCLIA [id number] [address] [address] [place] Sodium [Moles/Vol] 138 mmol/L Normal 136-144 [facility] Comment on above: Order Comment: Speci men Type: BLOOD SPECIMENOrdering Facility: [facility] Address: [address] [place] [address] Performed By: #### 2 4323-8 ####[facility] LABCLIA [id number] [place] [address] [place] Urea nitrogen [Mass/Vol] 8 mg/dL Normal 7-21 [facility] Comment on above: Order Comment: Speci men Type: BLOOD SPECIMENOrdering Facility: [facility] Address: [address] [place] [address] Performed By: #### 2 4323-8 ####[facility] LABCLIA [id number] [place] [address] [place] Enterography Abd/Balbir 07-29 Enterography Abd/Pel [facility] [address] [place] [address] [id number] Enterography Abd/Pel MR#: [id number] Acct: [id number] Name: MADHURI PAULSON Rep #: [id number] : 2000 F 23 From: Gigi cosby MD PCP: Dr. Juan Manuel Antonio DO Status: REG CLI Study: Enterography Abd/Pel Date of Exam: 07/29/24 Exam# [id number] Ordering Dr: Colton Juárez DO [id number] STUDY: MR ENTEROGRAPHY WITH CONTRAST REASON FOR EXAM: Female, 23 years old. K56.609 - Unspecified intestinal obstruction, unspecified as t... TECHNIQUE: Multipulse sequence MRI performed with IV contrast according to standard MR enterography protocol following administration of oral contrast for maximal bowel distention. Images were obtained from the dome of the diaphragm to the symphysis pubis. 17 CC IV CLARISCAN was administered intravenously. TECHNICAL QUALITY: Image Quality: Satisfactory Small Bowel Distension: Adequate. COMPARISON: CT of abdomen and pelvis dated December 14, 2013 FINDINGS: FINDINGS: Bowel: Bowel wall thickening: Absent. Skip lesions: None. Vascularity: Normal. Enhancement: Normal. Fistula: None. Abscess: None. Other Findings: The visualized lung bases are unremarkable. The visualized portions of the heart are within normal limits. Normal liver. Normal gallbladder and extrahepatic biliary system. Normal spleen. Normal pancreas. Normal bilateral adrenal glands. Normal right kidney. Normal left kidney. Normal visualized stomach. Mild luminal narrowing in the middle and distal one third regions of the ileum and in the distal jejunum, but without beading or skipped lesions or wall thickening is most likely due to extrinsic adhesions or fibrosis from prior inflammation or prior obstruction or surgical intervention. These findings are not radiographically specific for inflammatory bowel disease but could result and symptoms of irritable bowel syndrome. No small bowel obstruction or fistulous connections or abnormal patulous dilatation. Normal remaining small bowel loops. Normal colon. The appendix is visualized and appears normal. Normal abdominal aorta. Normal inferior vena cava. Normal retroperitoneum. Normal urinary bladder. Normal uterus without evidence of a mass or myometrial hypertrophy. Small amount of endometrial fluid and intermediate signal complex fluid that is consistent with menstrual-related hemorrhage. No endometrial mass or cervical abnormality is seen. Normal bilateral ovaries. Dominant left ovarian follicle noted which is of no clinical significance and does not requiring additional imaging There is a small umbilical hernia containing fat. No aggressive process is seen in the osseous structures.. 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 The herniated sac measures 4.56 x 3.22 cm in diameter. MRI/Enterography Abd/Pel IMPRESSION: 1. Mild luminal narrowing in the middle and distal one third regions of the ileum and in the distal jejunum, but without beading or skipped lesions or wall thickening is most likely due to extrinsic adhesions or fibrosis from prior inflammation or prior obstruction or surgical intervention. These findings are not radiographically specific for inflammatory bowel disease but could result and symptoms of irritable bowel syndrome. No small bowel obstruction or fistulous connections or abnormal patulous dilatation. Normal remaining small bowel loops. Electronically Signed: Gigi Wills MD at 9:34 EST Reading Location ID and State: [facility] / [place] , Service support , CC: Dr. Juan Manuel Antonio DO; Colton Juárez DO Bilingual Case Manager: Signed Normal [facility] XR FOOT 3V AP/LAT/OBL LTon 0 07-29-2024 XR FOOT 3V AP/LAT/OBL LT * * *Final Report* * * DATE OF EXAM: Jul 29 2024 10:02AM WOX [id number] - XR FOOT 3V AP/LAT/OBL LT / PROCEDURE REASON: Cellulitis of toe of left foot * * * * Physician Interpretation * * * * EXAMINATION: XR FOOT 3V AP/LAT/OBL LT CLINICAL HISTORY: Cellulitis of toe of left foot Technique: XR FOOT 3V AP/LAT/OBL LT -- LEFT with 3 views on 3 images Comparison: X-ray left foot 05/29/2017 RESULT: Left hindfoot coalition. Adductus deformity of the metatarsals. Mild fourth and fifth tarsometatarsal joint space narrowing. Mild narrowing at multiple interphalangeal joints. No acute fracture or dislocation. No destructive osseous lesion. Soft tissue swelling of the left foot. IMPRESSION: No acute fracture or destructive osseous lesion Bilingual Case Manager: ISAAK Transcribe Date/Time: Jul 30 2024 5:01P Dictated by : SILVINA VALERO MD This examination was interpreted and the report reviewed and electronically signed by: SILVINA VALERO MD on Jul 30 2024 5:04PM EST [id number] Normal [facility] CNOVon 07-28-2024 CNOV Office Visit ([facility] ) -------- MADHURI PAULSON ([id number]) 2000 F [facility] Date Time Provider Department 07/28/24 9:40 AM STALIN RODRIGUEZ During your visit today, we recorded the following information about you: Temperature Pulse Respiration Blood pressure 97.6 degrees 104/minute 18/minute 125/75 Stalin Rodriguez, RN CLINICAL.SIGNAL INSPECTOR 07/28/2024 10:43 AM Signed HPI: Madhuri Paulson is a 23 year old female who presents with Toe Pain (Toe) (Left 4th toe red this am no known injury). Patient reports she does have spina bifida and does not have feeling in her feet. Patient reports she is not had this happen before. Patient denies fever, nausea, vomiting, chills. PAST MEDICAL HISTORY Diagnosis Date Acute pain of right shoulder 01/21/2019 Chiari malformation type I (HCC) Lymphedema Menarche 09/2011 PMH - PAST MEDICAL HISTORY OF spina bifida PMH - PAST MEDICAL HISTORY OF 01/07/2004 color vision-normal PMH - PAST MEDICAL HISTORY OF bilateral club feet PMH - PAST MEDICAL HISTORY OF broken leg in 10/09 ACTIVE PROBLEM LIST Spina Bifida of Lumbar Region (Hcc) Cauda Equina Syndrome With Neurogenic Bladder (Hcc) Muscle Weakness (Generalized) Patellar Malalignment Syndrome Constipation Abnormality of Gait Thoracic Outlet Syndrome Scapulothoracic Bursitis of Right Shoulder Chiari Malformation Type I (Hcc) Lymphedema Neurogenic Bowel Obese Obesity, Class I, Bmi 30-34.9 S/P Brain Surgery Postoperative Pain Routine Physical Examination Recurrent Uti (Urinary Tract Infection) Dysmenorrhea Neurogenic Bladder Current Outpatient Medications Medication Sig Dispense Refill Drospirenone-Ethinyl Estradiol (PHILIP, 28,) 3-0.02 mg per tablet Take 1 tablet by mouth once daily. Ok to skip placebo week and start on new pack of pills 112 tablet 3 Phentermine HCl (ADIPEX-P) 37.5 mg tablet Take 1 tablet by mouth once daily for 30 days. BMI 33 30 tablet 2 metFORMIN (GLUCOPHAGE) 500 mg tablet Take 1 tablet by mouth daily with dinner. 90 tablet 1 Ascorbic Acid 1,000 mg tablet Take 1 tablet by mouth once daily. acetaminophen (TYLENOL) 500 mg tablet 2 tablets by ORAL/FEEDING TUBE route every 8 hours as needed for pain. Catheter (FEMALE CATHETER) 14 Fr misc 14 Chilean, 16 inch female straight tip intermittent catheter, to use q6 hrs prn urinary retention 100 Each 1 B.animalis,bifid,infanti s,long (PROBIOTIC 4X ORAL) Take 1 capsule by mouth once daily. polyethylene glycol 3350 (MIRALAX) 17 gram/dose powder One quarter capful added to 800 cc of water and then flushed through the Banda stoma sulfamethoxazole-trimeth oprim (BACTRIM DS) 800-160 mg per tablet Take 1 tablet by mouth two times a day for 10 days. 20 tablet 0 albuterol HFA (PROVENTIL HFA, VENTOLIN HFA) 90 mcg/actuation inhaler Inhale 2 Puffs as instructed. (Patient not taking: Reported on 07/28/2024) albuterol HFA (PROVENTIL HFA, VENTOLIN HFA) 90 mcg/actuation inhaler Inhale 2 Puffs as instructed every 6 hours as needed for wheezing/shortness of breath. 8 g 0 No current facility-administered medications for this visit. Social History Tobacco Use Smoking status: Never Smokeless tobacco: Never Tobacco comments: no smokers in home Vaping Use Vaping status: Never Used Substance Use Topics Alcohol use: Yes Comment: Not weekly Drug use: No Alcohol Use: Yes (Not weekly) Tobacco Use: Never FAMILY HISTORY Problem Relation Age of Onset Uterine Cancer Mother Ovarian cancer Mother Anesthesia Problems Maternal Uncle Patient's mother states her brother coded during a procedure as a baby. Not actually diagnosed with anything specific and did not undergo further anesthesia as an adult. Hypertension Maternal Grandmother Breast Cancer Maternal Grandmother Heart Maternal Grandfather Renal Cell Cancer Maternal Grandfather Thyroid Cancer Maternal Grandfather Hypertension Paternal Grandmother Hypertension Paternal Grandfather Heart Paternal Grandfather Review of Systems Constitutional: Negative for chills and fever. HENT: Negative for congestion, ear pain and sinus pain. Respiratory: Negative for cough, shortness of breath and wheezing. Cardiovascular: Negative for chest pain. Skin: Red, warm to touch toe BP 125/75 Pulse 104 Temp 97.6 Resp 18 SpO2 97% LMP 07/15/2024 Physical Exam Constitutional: General: She is not in acute distress. Appearance: Normal appearance. She is normal weight. She is not ill-appearing. HENT: Head: Normocephalic. Mouth/Throat: Mouth: Mucous membranes are moist. Eyes: Extraocular Movements: Extraocular movements intact. Conjunctiva/sclera: Conjunctivae normal. Cardiovascular: Rate and Rhythm: Tachycardia present. Pulmonary: Effort: Pulmonary effort is normal. Musculoskeletal: General: Swelling present. Feet: Feet: Comments: Red, swollen, warm to touch (more content not included)... [facility] 07-22-2024 [facility] Telephone ([facility]) -------- MADHURI PAULSON ([id number]) 2000 F [facility] Date Time Provider Department 07/22/24 [facility] During your visit today, we recorded the following information about you: Juan Manuel Antonio DO 07/22/2024 2:02 PM Signed Please inform patient that her pelvic US shows a small ovarian cyst which should resolve on its own. No other concerns IMPRESSION: 1.8 cm septated cyst in the left ovary. Alecia Guardado LPN 07/22/2024 2:13 PM Signed Pt. informed via My Chart. Allergies As of Date: 07/22/2024 Noted Allergy Reaction BANANA 10/05/2010 16 - Unknown Comments: Per diagnosis LATEX 10/18/2002 16 - Unknown Comments: Per diagnosis Date Reviewed: 07/15/2024 Reviewed by: Alecia Guardado LPN - Fully Assessed Prescriptions as of 07/22/2024 - Drospirenone-Ethinyl Estradiol (PHILIP, Yvette,) 3-0.02 mg per tablet Take 1 tablet by mouth once daily. Ok to skip placebo week and start on new pack of pills - Phentermine HCl (ADIPEX-P) 37.5 mg tablet Take 1 tablet by mouth once daily for 30 days. BMI 33 - metFORMIN (GLUCOPHAGE) 500 mg tablet Take 1 tablet by mouth daily with dinner. - Ascorbic Acid 1,000 mg tablet Take 1 tablet by mouth once daily. - albuterol HFA (PROVENTIL HFA, VENTOLIN HFA) 90 mcg/actuation inhaler Inhale 2 Puffs as instructed. - albuterol HFA (PROVENTIL HFA, VENTOLIN HFA) 90 mcg/actuation inhaler Inhale 2 Puffs as instructed every 6 hours as needed for wheezing/shortness of breath. - acetaminophen (TYLENOL) 500 mg tablet 2 tablets by ORAL/FEEDING TUBE route every 8 hours as needed for pain. - Catheter (FEMALE CATHETER) 14 Fr misc 14 Chilean, 16 inch female straight tip intermittent catheter, to use q6 hrs prn urinary retention - B.animalis,bifid,infanti s,long (PROBIOTIC 4X ORAL) Take 1 capsule by mouth once daily. - polyethylene glycol 3350 (MIRALAX) 17 gram/dose powder One quarter capful added to 800 cc of water and then flushed through the Banda stoma Problem List As Of Date 07/22/2024 Noted Resolved Spina bifida of lumbar region (HCC) [Q05.7] 06/07/2002 Follow-up examination following surgery [V67.0] 12/30/2002 11/20/2011 Cauda equina syndrome with neurogenic bladder (*09/19/2006 Muscle weakness (generalized) [M62.81] 01/25/2007 SPRAIN STRAIN, (LIGAMENT,MUSCLE TIBIA, PRO*08/07/2008 11/20/2011 Patellar malalignment syndrome [M23.90] 10/11/2010 Constipation [K59.00] 02/18/2014 Abnormality of gait [R26.9] 03/03/2015 Thoracic outlet syndrome [G54.0] 09/17/2018 Scapulothoracic bursitis of right shoulder [M75*01/21/2019 Acute pain of right shoulder [M25.511] 01/21/2019 06/29/2020 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] Lymphedema [I89.0] Neurogenic bowel [K59.2] 06/20/2016 Obese [E66.9] Obesity, Class I, BMI 30-34.9 [E66.811] 12/15/2023 S/P brain surgery [Z98.890] 12/15/2023 Postoperative pain [G89.18] 12/18/2023 Routine physical examination [Z00.00] 12/27/2023 Recurrent UTI (urinary tract infection) [N39.0] 07/16/2024 Dysmenorrhea [N94.6] 07/16/2024 Neurogenic bladder [N31.9] 07/16/2024 Encounter Status:Closed by ALECIA GUARDADO LPN on 07/22/24 Normal [facility] Gastric Emptying Studyon Gastric Emptying Study [facility] Imaging Services [address], [place] [address] Gastric Emptying Study MR#: [id number] Acct: [id number] Name: MADHURI PAULSON Rep #: [id number] : 2000 F 23 From: Armond Ding PCP: Dr. Juan Manuel Antonio, DO Status: REG CLI Study: Gastric Emptying Study Date of Exam: 07/22/24 Exam# [id number] Ordering Dr: Colton Juárez DO [id number] CLINICAL: 23-year-old female with history of chronic gastrointestinal complaints. SEMI-SOLID PHASE 99m Tc SULFUR COLLOID GASTRIC EMPTYING STUDY COMPARISON: None available FINDINGS: The patient was administered 1.2 mCi of 99m Tc sulfur colloid mixed with oatmeal and consumed per os. Image acquisitions in the anterior-posterior projections were obtained for 60 minutes. There is prompt visualization of the stomach. There is no gastroesophageal reflux identified. First order kinetics are maintained throughout the duration of the acquisitions. The T ? linear fit was extrapolated to be 86.93 minutes, (Normal: 12-56 minutes). NM/Gastric Emptying Study IMPRESSION: 1. ABNORMAL 99m Tc sulfur colloid semi-solid phase (oatmeal) gastric emptying imaging examination. A. There is delayed semi-solid phase gastric emptying compared to normal controls with demonstrated the first order kinetics throughout all components of the examination. (Guillermina et al, J Nucl Med Tech 38: 186, 2010). Electronically Signed: Armond Yang DO at 9:17 EST , CC: Dr. Juan Manuel Antonio DO; Colton Juárez, Bilingual Case Manager: Signed Normal [facility] No Panel Informationon 07-22 IMPRESSION: 1.8 cm septated cyst in the left ovary. Bilingual Case Manager: PSCB Transcribe Date/Time: Jul 22 2024 10:40A Dictated by : LJ COCHRAN MD This examination was interpreted and the report reviewed and electronically signed by: LJ COCHRAN MD on Jul 22 2024 10:44AM EST DIVISION OF RADIOLOGY Radiology Study observation (narrative) [facility] No Panel InformationOrdered By: Ccf Provider on 07-22-2024 [facility] US FEMALE PELVIS TRANSABD LT Don 07-22-2024 US FEMALE PELVIS TRANSABD LTD * * *Final Report* * * DATE OF EXAM: Jul 22 2024 9:15AM [facility] 1059 - US FEMALE PELVIS TRANSABD LTD / PROCEDURE REASON: Dysmenorrhea * * * * Physician Interpretation * * * * EXAMINATION: TRANSVAGINAL AND LIMITED TRANSABDOMINAL FEMALE PELVIC ULTRASOUND CLINICAL HISTORY: Dysmenorrhea. LMP: 06/15/2024 TECHNIQUE: Sonography of the pelvis was performed by transvaginal and transabdominal (limited) techniques. Images were obtained and stored in a permanent archive. MQ: [facility]_2021 COMPARISON: None RESULT: Uterus: -Size: 7.4 x 3.8 x 5.0 cm -Orientation: Anteverted -Endometrial echo complex: Evaluation of the endometrium was adequate. No endometrial abnormality. The endometrial echo complex measured 1.3 cm. -Cervix: Unremarkable. -Adenomyosis assessment: There are no sonographic findings of adenomyosis. -Fibroids: There are no fibroids. Right Ovary: -Size: 2.6 x 1.5 x 2.1 cm. -Normal sonographic appearance. Left Ovary: -Size: 3.5 x 2.2 x 2.6 cm. -There is a 1.8 x 1.6 x 1.5 cm cyst with thin septation. Free Fluid: No abnormal free fluid is present. IMPRESSION: 1.8 cm septated cyst in the left ovary. Bilingual Case Manager: ISAAK Transcribe Date/Time: Jul 22 2024 10:40A Dictated by : LJ COCHRAN MD This examination was interpreted and the report reviewed and electronically signed by: LJ COCHRAN MD on Jul 22 2024 10:44AM EST [id number] Normal [facility] FEMALE PELVIS TRANSVAGon 07-22-2024 US FEMALE PELVIS TRANSVAG * * *Final Report* * * DATE OF EXAM: Jul 22 2024 9:15AM [facility] 1060 - US FEMALE PELVIS TRANSVAG / PROCEDURE REASON: Dysmenorrhea * * * * Physician Interpretation * * * * EXAMINATION: TRANSVAGINAL AND LIMITED TRANSABDOMINAL FEMALE PELVIC ULTRASOUND CLINICAL HISTORY: Dysmenorrhea. LMP: 06/15/2024 TECHNIQUE: Sonography of the pelvis was performed by transvaginal and transabdominal (limited) techniques. Images were obtained and stored in a permanent archive. MQ: [facility]_2021 COMPARISON: None RESULT: Uterus: -Size: 7.4 x 3.8 x 5.0 cm -Orientation: Anteverted -Endometrial echo complex: Evaluation of the endometrium was adequate. No endometrial abnormality. The endometrial echo complex measured 1.3 cm. -Cervix: Unremarkable. -Adenomyosis assessment: There are no sonographic findings of adenomyosis. -Fibroids: There are no fibroids. Right Ovary: -Size: 2.6 x 1.5 x 2.1 cm. -Normal sonographic appearance. Left Ovary: -Size: 3.5 x 2.2 x 2.6 cm. -There is a 1.8 x 1.6 x 1.5 cm cyst with thin septation. Free Fluid: No abnormal free fluid is present. IMPRESSION: 1.8 cm septated cyst in the left ovary. Bilingual Case Manager: ISAAK Transcribe Date/Time: Jul 22 2024 10:40A Dictated by : LJ COCHRAN MD This examination was interpreted and the report reviewed and electronically signed by: LJ COCHRAN MD on Jul 22 2024 10:44AM EST [id number] Normal [facility] Pelvis limitedon 07-22-19 * * *Final Report* * * DATE OF EXAM: Jul 22 2024 9:15AM [facility] 1059 - FEMALE PELVIS TRANSFDTEK LTD / PROCEDURE REASON: Dysmenorrhea * * * * Physician Interpretation * * * * EXAMINATION: TRANSVAGINAL AND LIMITED TRANSABDOMINAL FEMALE PELVIC ULTRASOUND CLINICAL HISTORY: Dysmenorrhea. LMP: 06/15/2024 TECHNIQUE: Sonography of the pelvis was performed by transvaginal and transabdominal (limited) techniques. Images were obtained and stored in a permanent archive. MQ: [facility]_2021 COMPARISON: None RESULT: Uterus: -Size: 7.4 x 3.8 x 5.0 cm -Orientation: Anteverted -Endometrial echo complex: Evaluation of the endometrium was adequate. No endometrial abnormality. The endometrial echo complex measured 1.3 cm. -Cervix: Unremarkable. -Adenomyosis assessment: There are no sonographic findings of adenomyosis. -Fibroids: There are no fibroids. Right Ovary: -Size: 2.6 x 1.5 x 2.1 cm. -Normal sonographic appearance. Left Ovary: -Size: 3.5 x 2.2 x 2.6 cm. -There is a 1.8 x 1.6 x 1.5 cm cyst with thin septation. Free Fluid: No abnormal free fluid is present. DIVISION OF RADIOLOGY Provider, [facility] - 07/22/2024 * * *Final Report* * * DATE OF EXAM: Jul 22 2024 9:15AM [facility] 1059 - FEMALE PELVIS TRANSFDTEK LTD / PROCEDURE REASON: Dysmenorrhea * * * * Physician Interpretation * * * * EXAMINATION: TRANSVAGINAL AND LIMITED TRANSABDOMINAL FEMALE PELVIC ULTRASOUND CLINICAL HISTORY: Dysmenorrhea. LMP: 06/15/2024 TECHNIQUE: Sonography of the pelvis was performed by transvaginal and transabdominal (limited) techniques. Images were obtained and stored in a permanent archive. MQ: [facility]_2021 COMPARISON: None RESULT: Uterus: -Size: 7.4 x 3.8 x 5.0 cm -Orientation: Anteverted -Endometrial echo complex: Evaluation of the endometrium was adequate. No endometrial abnormality. The endometrial echo complex measured 1.3 cm. -Cervix: Unremarkable. -Adenomyosis assessment: There are no sonographic findings of adenomyosis. -Fibroids: There are no fibroids. Right Ovary: -Size: 2.6 x 1.5 x 2.1 cm. -Normal sonographic appearance. Left Ovary: -Size: 3.5 x 2.2 x 2.6 cm. -There is a 1.8 x 1.6 x 1.5 cm cyst with thin septation. Free Fluid: No abnormal free fluid is present. IMPRESSION IMPRESSION: 1.8 cm septated cyst in the left ovary. Bilingual Case Manager: PSCB Transcribe Date/Time: Jul 22 2024 10:40A Dictated by : LJ COCHRAN MD This examination was interpreted and the report reviewed and electronically signed by: LJ COCHRAN MD on Jul 22 2024 10:44AM [facility] US Pelvis transvaginalon * * *Final Report* * * DATE OF EXAM: Jul 22 2024 9:15AM [facility] 1060 - US FEMALE PELVIS TRANSVAG / PROCEDURE REASON: Dysmenorrhea * * * * Physician Interpretation * * * * EXAMINATION: TRANSVAGINAL AND LIMITED TRANSABDOMINAL FEMALE PELVIC ULTRASOUND CLINICAL HISTORY: Dysmenorrhea. LMP: 06/15/2024 TECHNIQUE: Sonography of the pelvis was performed by transvaginal and transabdominal (limited) techniques. Images were obtained and stored in a permanent archive. MQ: [facility]_2021 COMPARISON: None RESULT: Uterus: -Size: 7.4 x 3.8 x 5.0 cm -Orientation: Anteverted -Endometrial echo complex: Evaluation of the endometrium was adequate. No endometrial abnormality. The endometrial echo complex measured 1.3 cm. -Cervix: Unremarkable. -Adenomyosis assessment: There are no sonographic findings of adenomyosis. -Fibroids: There are no fibroids. Right Ovary: -Size: 2.6 x 1.5 x 2.1 cm. -Normal sonographic appearance. Left Ovary: -Size: 3.5 x 2.2 x 2.6 cm. -There is a 1.8 x 1.6 x 1.5 cm cyst with thin septation. Free Fluid: No abnormal free fluid is present. DIVISION OF RADIOLOGY Provider, [facility] - 07/22/2024 * * *Final Report* * * DATE OF EXAM: Jul 22 2024 9:15AM [facility] 1060 - US FEMALE PELVIS TRANSVAG / PROCEDURE REASON: Dysmenorrhea * * * * Physician Interpretation * * * * EXAMINATION: TRANSVAGINAL AND LIMITED TRANSABDOMINAL FEMALE PELVIC ULTRASOUND CLINICAL HISTORY: Dysmenorrhea. LMP: 06/15/2024 TECHNIQUE: Sonography of the pelvis was performed by transvaginal and transabdominal (limited) techniques. Images were obtained and stored in a permanent archive. MQ: [facility]_2021 COMPARISON: None RESULT: Uterus: -Size: 7.4 x 3.8 x 5.0 cm -Orientation: Anteverted -Endometrial echo complex: Evaluation of the endometrium was adequate. No endometrial abnormality. The endometrial echo complex measured 1.3 cm. -Cervix: Unremarkable. -Adenomyosis assessment: There are no sonographic findings of adenomyosis. -Fibroids: There are no fibroids. Right Ovary: -Size: 2.6 x 1.5 x 2.1 cm. -Normal sonographic appearance. Left Ovary: -Size: 3.5 x 2.2 x 2.6 cm. -There is a 1.8 x 1.6 x 1.5 cm cyst with thin septation. Free Fluid: No abnormal free fluid is present. IMPRESSION IMPRESSION: 1.8 cm septated cyst in the left ovary. Bilingual Case Manager: [facility] Transcribe Date/Time: Jul 22 2024 10:40A Dictated by : LJ COCHRAN MD This examination was interpreted and the report reviewed and electronically signed by: LJ COCHRAN MD on Jul 22 2024 10:44AM NEEL [facility] Rufina 07-17-2024 JOSEFA Telephone (FAMPWS) -------- MADHURI PAULSON ([id number]) 2000 F CHT Date Time Provider Department 07/17/24 JUAN MANUEL ANTONIO During your visit today, we recorded the following information about you: AntonioJuan Manuel DO 07/17/2024 1:02 PM Signed Please let her know that her UA looks like she still has a UTI but her urine culture is negative Any symptoms? On antibiotic at this time? DO Joya Klein [place], [place] 07/17/2024 1:27 PM Signed Pt informed, verbalized understanding. Pt reports no urinary sx at this time. Not currently taking an antibiotic. MARILY Pierre Jordan L, DO 07/17/2024 4:27 PM Signed Noted, okay to HOLD on taking an antibiotic then Please let her know DO Lorena Klein Susan LPN 07/17/2024 5:02 PM Signed Pt. informed Message left on VM. Allergies As of Date: 07/17/2024 Noted Allergy Reaction BANANA 10/05/2010 16 - Unknown Comments: Per diagnosis LATEX 10/18/2002 16 - Unknown Comments: Per diagnosis Date Reviewed: 07/15/2024 Reviewed by: Alecia Guardado LPN - Fully Assessed Prescriptions as of 07/17/2024 - Drospirenone-Ethinyl Estradiol (PHILIP, 28,) 3-0.02 mg per tablet Take 1 tablet by mouth once daily. Ok to skip placebo week and start on new pack of pills - Phentermine HCl (ADIPEX-P) 37.5 mg tablet Take 1 tablet by mouth once daily for 30 days. BMI 33 - metFORMIN (GLUCOPHAGE) 500 mg tablet Take 1 tablet by mouth daily with dinner. - Ascorbic Acid 1,000 mg tablet Take 1 tablet by mouth once daily. - albuterol HFA (PROVENTIL HFA, VENTOLIN HFA) 90 mcg/actuation inhaler Inhale 2 Puffs as instructed. - albuterol HFA (PROVENTIL HFA, VENTOLIN HFA) 90 mcg/actuation inhaler Inhale 2 Puffs as instructed every 6 hours as needed for wheezing/shortness of breath. - acetaminophen (TYLENOL) 500 mg tablet 2 tablets by ORAL/FEEDING TUBE route every 8 hours as needed for pain. - Catheter (FEMALE CATHETER) 14 Fr misc 14 [place]an, 16 inch female straight tip intermittent catheter, to use q6 hrs prn urinary retention - B.animalis,bifid,infanti s,long (PROBIOTIC 4X ORAL) Take 1 capsule by mouth once daily. 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] 10/11/2010 Constipation [K59.00] 02/18/2014 Abnormality of gait [R26.9] 03/03/2015 Thoracic outlet syndrome [G54.0] 09/17/2018 Scapulothoracic bursitis of right shoulder [M75*01/21/2019 Acute pain of right shoulder [M25.511] 01/21/2019 06/29/2020 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] Lymphedema [I89.0] Neurogenic bowel [K59.2] 06/20/2016 Obese [E66.9] Obesity, Class I, BMI 30-34.9 [E66.811] 12/15/2023 S/P brain surgery [Z98.890] 12/15/2023 Postoperative pain [G89.18] 12/18/2023 Routine physical examination [Z00.00] 12/27/2023 Recurrent UTI (urinary tract infection) [N39.0] 07/16/2024 Dysmenorrhea [N94.6] 07/16/2024 Neurogenic bladder [N31.9] 07/16/2024 Encounter Status:Closed by ALECIA GUARDADO LPN on 07/17/24 Normal [facility] BACTERIAL CULTURE, URINEOrde red By: Cesar Robin on 07-16-2024 Bacteria identified Cx Nom (U) 10,000 -<50,000 CFU/ml Normal urogenital maris [facility] Bacteria identified Cx Nom ( U)Ordered By: Cesar Robin on 07-16-2024 [facility] Bacteria Ur Culton Bacteria identified Cx Nom (U) ORGANISM ID: 1 10,000 -<50,000 CFU/ml Normal urogenital maris Normal [facility] Comment on above: Performed By: #### 6 30-4 ####[facility] LABCLIA [id number] [address] CNOVon 07-15-2024 CNOV Office Visit (FAMPWS ) -------- PAULSONMADHURI ([id number]) 2000 F [facility] Date Time Provider Department 07/15/24 12:40 PM JUAN MANUEL ANTONIO FAMPWS During your visit today, we recorded the following information about you: Temperature Pulse Respiration Blood pressure 98.1 degrees 80/minute 16/minute 120/60 Weight Last Period 88 kg 07/15/24 Juan Manuel Antonio, DO 07/16/2024 4:53 PM Signed CC: Madhuri Walter Thomas is a 23 year old female who presents to the office to establish care. HPI: At last OFFICE VISIT December 2023 She recently underwent a craniectomy subocipital with cervical laminectomy for decompression and dural grafting for enlarging Chiari malformation and herniation present. She is not about day 12 post operative and she has done well. Her nausea and vomting and headaches have resolved. She is supposed to have her suture removed on Monday or Monday. She is asking to have this done locally. 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 Wondering what supplements she can take to help her symptoms. Obesity, weight at 194 lbs. She is at BMI 33.30. she is interested in weight loss options. She is not allowed to exercise due to her craniectomy and complications with headaches and extra intracranial fluid. Menses, painful and cramping, occurring regularly. Worse days 1-2 of her menses, has tried heating pad and NSAIDs. Has a fmhx of ovarian cysts and has a lot of clots she passes. She has had an IUD as a teenager but would like an oral pill option. She is engaged, not yet but does want to have children in the future Recurrent UTI, secondary to her spina bifida. Wondering if any options to help with prevention PAST MEDICAL HISTORY Diagnosis Date Acute pain of right shoulder 01/21/2019 Chiari malformation type I (HCC) Lymphedema Menarche 09/2011 PMH - PAST MEDICAL HISTORY OF spina bifida PMH - PAST MEDICAL HISTORY OF 01/07/2004 color vision-normal PMH - PAST MEDICAL HISTORY OF bilateral club feet PMH - PAST MEDICAL HISTORY OF broken leg in 10/09 PAST SURGICAL HISTORY Procedure Laterality Date AFP, OPEN SPINA BIFIDA ([facility]) Spina Bifida surgery during infancy APPENDICONEOVESICOSTOMY 06/20/2016 APPENDICONEOVESICOSTOMY 12/2016 COLONOSCOPY FLX DX W/COLLJ SPEC WHEN PFRMD 10/24/2017 Colonoscopy KNEE RIGHT OP SURGERY 10/2012 right knee PAST SURGICAL HISTORY OF Bilateral Foot reconstruction x 4-5 times PAST SURGICAL HISTORY OF laser surgery on birthmark PAST SURGICAL HISTORY OF 10/2010 right knee surgery TONSILLECTOMY AND ADENOIDECTOMY Social History: Social History Tobacco Use Smoking status: Never Smokeless tobacco: Never Tobacco comments: no smokers in home Vaping Use Vaping status: Never Used Substance Use Topics Alcohol use: Yes Comment: Not weekly Drug use: No FAMILY HISTORY Problem Relation Age of Onset Uterine Cancer Mother Ovarian cancer Mother Anesthesia Problems Maternal Uncle Patient's mother states her brother coded during a procedure as a baby. Not actually diagnosed with anything specific and did not undergo further anesthesia as an adult. Hypertension Maternal Grandmother Breast Cancer Maternal Grandmother Heart Maternal Grandfather Renal Cell Cancer Maternal Grandfather Thyroid Cancer Maternal Grandfather Hypertension Paternal Grandmother Hypertension Paternal Grandfather Heart Paternal Grandfather Current Outpatient prescriptions: Drospirenone-Ethinyl Estradiol (PHILIP, 28,) 3-0.02 mg per tablet Take 1 tablet by mouth once daily. Ok to skip placebo week and start on new pack of pills Phentermine HCl (ADIPEX-P) 37.5 mg tablet Take 1 tablet by mouth once daily for 30 days. BMI 33 metFORMIN (GLUCOPHAGE) 500 mg tablet Take 1 tablet by mouth daily with dinner. Ascorbic Acid 1,000 mg tablet Take 1 tablet by mouth once daily. albuterol HFA (PROVENTIL HFA, VENTOLIN HFA) 90 mcg/actuation inhaler Inhale 2 Puffs as instructed. albuterol HFA (PROVENTIL HFA, VENTOLIN HFA) 90 mcg/actuation inhaler Inhale 2 Puffs as instructed every 6 hours as needed for wheezing/shortness of breath. acetaminophen (TYLENOL) 500 mg tablet 2 tablets by ORAL/FEEDING TUBE route every 8 hours as needed for pain. Catheter (FEMALE CATHETER) 14 Fr misc 14 [place]an, 16 inch female straight tip intermittent catheter, to use q6 hrs prn urinary retention B.animalis,bifid,infanti s,long (PROBIOTIC 4X ORAL) Take 1 capsule by mouth once daily. polyethylene glycol 3350 (MIRALAX) 17 gram/d (more content not included)... Normal [facility] Urinalysis complete panel (U )on 07-15-2024 Bacteria LM.HPF (Urine sed) [#/Area] Negative Negative /HPF [facility] Bil[facility] Ql (U) [facility] Calcium Oxalate Crystals Few Abnormal None Seen /HPF [facility] Clarity (Unsp spec) Clear Clear [facility] Color (U) Dark Yellow Abnormal Yellow [facility] Epithelial cells LM.HPF (Urine sed) [#/Area] Moderate /HPF [facility] Glucose Test strip (U) [Mass/Vol] Negative Negative [facility] Hemoglobin Ql (U) Negative Negative [facility] Hyaline casts (Urine sed) [#/Area] 1-3 /LPF Abnormal 0 /LPF [facility] Interpretation and review of laboratory results Abnormal [facility] Ketones Ql (U) Negative Negative [facility] Leukocyte esterase Test strip Ql (U) Trace Abnormal Negative [facility] Nitrite Ql (U) Positive Abnormal Negative [facility] pH (U) 7.5 [pH] NINF - 8.5 [facility] Protein (U) [Mass/Vol] Trace Abnormal Negative [facility] RBC LM.HPF (Urine sed) [#/Area] 0-2 /HPF 0-2 /HPF [facility] Specific gravity (U) [Rel density] 1.028 1.005 - 1.030 [facility] Urobilinogen Ql (U) 1.0 EU/dL 0.2-1.0 EU/dL [facility] WBC LM.HPF (Urine sed) [#/Area] 0-5 /HPF 0-5 /HPF [facility] Result rechecked Questionable urine chemistry results This test was developed and its performance characteristics determined by [facility] [place] ([facility]). It has not been cleared or approved by the FDA. [facility] is regulated under CLIA as qualified to perform high-complexity testing. This test is used for clinical purposes. It should not be regarded as investigational or for research. [facility] Bacteria LM.HPF (Urine sed) [#/Area] Negative Normal Negative [facility] Comment on above: Order Comment: Speci men Type: URINE SPECIMENOrdering Facility: [facility] Address: [address] [place] [address] Performed By: #### 2 4356-8 ####[facility] LABIA [id number] [place] [address] [place] Bilirubin Ql (U) Negative Normal Negative [facility] Comment on above: Order Comment: Speci men Type: URINE SPECIMENOrdering Facility: [facility] Address: [address] [place] [address] Performed By: #### 2 4356-8 ####[facility] LABIA [id number] [place] [address] [place] CALCIUM OXALATE CRYSTALS (UA) Few Abnormal None Seen [facility] Comment on above: Order Comment: Speci men Type: URINE SPECIMENOrdering Facility: [facility] Address: [address] [place] [address] Performed By: #### 2 4356-8 ####[facility] LABCLIA [id number] [place] [address] [place] Clarity (Unsp spec) Clear Normal Clear [facility] Comment on above: Order Comment: Speci men Type: URINE SPECIMENOrdering Facility: [facility] Address: [address] [place] [address] Performed By: #### 2 4356-8 ####[facility] LABCLIA [id number] [place] [address] [place] Color (U) Dark Yellow Abnormal Yellow [facility] Comment on above: Order Comment: Speci men Type: URINE SPECIMENOrdering Facility: [facility] Address: [address] [place] [address] Performed By: #### 2 4356-8 ####[facility] LABCLIA [id number] [place] [address] [place] Epithelial cells LM.HPF (Urine sed) [#/Area] Moderate Normal [facility] Comment on above: Order Comment: Speci men Type: URINE SPECIMENOrdering Facility: [facility] Address: [address] [place] [address] Performed By: #### 2 4356-8 ####[facility] LABCLIA [id number] [place] [address] [place] Glucose Test strip (U) [Mass/Vol] Negative Normal Negative [facility] Comment on above: Order Comment: Speci men Type: URINE SPECIMENOrdering Facility: [facility] Address: [address] [place] [address] Performed By: #### 2 4356-8 ####[facility] LABCLIA [id number] [place] [address] [place] Hemoglobin Ql (U) Negative Normal Negative [facility] Comment on above: Order Comment: Speci men Type: URINE SPECIMENOrdering Facility: [facility] Address: [address] [place] [address] Performed By: #### 2 4356-8 ####[facility] LABCLIA [id number] [place] [address] [place] Hyaline casts (Urine sed) [#/Area] 1-3 /LPF Abnormal 0 /LPF [facility] Comment on above: Order Comment: Speci men Type: URINE SPECIMENOrdering Facility: [facility] Address: [address] [place] [address] Performed By: #### 2 4356-8 ####[facility] LABCLIA [id number] [place] [address] [place] Ketones Ql (U) Negative Normal Negative [facility] Comment on above: Order Comment: Speci men Type: URINE SPECIMENOrdering Facility: [facility] Address: [address] [place] [address] Performed By: #### 2 4356-8 ####[facility] LABCLIA [id number] [place] [address] [place] Leukocyte esterase Test strip Ql (U) Trace Abnormal Negative [facility] Comment on above: Order Comment: Speci men Type: URINE SPECIMENOrdering Facility: [facility] Address: [address] [place] [address] Performed By: #### 2 4356-8 ####[facility] LABCLIA [id number] [place] [address] [place] Nitrite Ql (U) Positive Abnormal Negative [facility] Comment on above: Order Comment: Speci men Type: URINE SPECIMENOrdering Facility: [facility] Address: [address] [place] [address] Performed By: #### 2 4356-8 ####[facility] LABCLIA [id number] [place] [address] [place] pH (U) 7.5 [pH] Normal <8.5 [facility] Comment on above: Order Comment: Speci men Type: URINE SPECIMENOrdering Facility: [facility] Address: [address] [place] [address] Performed By: #### 2 4356-8 ####[facility] LABIA [id number] [place] [address] [place] Protein (U) [Mass/Vol] Trace Abnormal Negative [facility] Comment on above: Order Comment: Speci men Type: URINE SPECIMENOrdering Facility: [facility] Address: [address] [place] [address] Performed By: #### 2 4356-8 ####[facility] LABIA [id number] [place] [address] [place] RBC LM.HPF (Urine sed) [#/Area] 0-2 /HPF Normal 0-2 /HPF [facility] Comment on above: Order Comment: Speci men Type: URINE SPECIMENOrdering Facility: [facility] Address: [address] [place] [address] Performed By: #### 2 4356-8 ####[facility] LABIA [id number] [place] [address] [place] Specific gravity (U) [Rel density] 1.028 Normal 1.005-1.030 [facility] Comment on above: Order Comment: Speci men Type: URINE SPECIMENOrdering Facility: [facility] Address: [address] [place] [address] Performed By: #### 2 4356-8 ####[facility] LABIA [id number] [place] [address] [place] Urobilinogen Ql (U) 1.0 EU/dL Normal 0.2-1.0 EU/dL [facility] Comment on above: Order Comment: Speci men Type: URINE SPECIMENOrdering Facility: [facility] Address: [address] [place] [address] Performed By: #### 2 4356-8 ####[facility] LABCLIA [id number] [place] [address] [place] WBC LM.HPF (Urine sed) [#/Area] 0-5 /HPF Normal 0-5 /HPF [facility] Comment on above: Order Comment: Speci men Type: URINE SPECIMENOrdering Facility: [facility] Address: [address] [place] [address] Performed By: #### 2 4356-8 ####[facility] LABCLIA [id number] [place] [address] [place] Bacteria Ur Culton 5 Bacteria identified Cx Nom (U) ORGANISM ID: 1 >=100,000 CFU/ml Escherichia coli ORGANISM ID: 1 (ESCHERICHIA COLI) ANTIBIOTIC INTERPRETATION ALVIN STATUS REFERENCE RANGE Ampicillin S <=4 F Susceptible <=8 , Intermediate >8 , Resistant >16 Cefazolin S <=1 F Susceptible 0-16 , Intermediate <0 or >16 , Resistant >16 For uncomplicated urinary tract infections, cefazolin results can be used to predict susceptibility or resistance to cephalexin. Ceftriaxone S <=1 F Susceptible <=1 , Intermediate >1 , Resistant >=4 Cefepime S <=1 F Susceptible <=2 , Susceptible-Dose Dependent >2 , Resistant >=16 Ertapenem S <=0.25 F Susceptible <=0.5 , Intermediate >.5 , Resistant >1 Meropenem S <=0.5 F Susceptible <=1 , Intermediate >1 , Resistant >2 Amoxicillin Clav S <=4 F Ampicillin/Sulbact S 4 F Piperacillin/Tazobac S <=2 F Gentamicin S <=2 F Susceptible <=2 , Intermediate >2 , Resistant >=8 Trimeth sulfameth S <=0.5 F Ciprofloxacin S <=0.25 F Susceptible <0.5 , Intermediate >=.5 , Resistant >=1 Nitrofurantoin S 32 F Susceptible <=32 , Intermediate >32 , Resistant >64 Abnormal [facility] Comment on above: Performed By: #### 6 30-4 #### [facility]AT[facility] CLIA [id number] [address] [place] [address] OF [facility] CNOVon 07-10-2024 CNOV Office Visit (UCMMAS ) -------- MADHURI PAULSON ([id number]) 2000 F T Date Time Provider Department 07/10/24 5:25 PM NORA FLOYD [facility] During your visit today, we recorded the following information about you: Temperature Pulse Respiration Blood pressure 98 degrees 86/minute 16/minute 136/87 Weight 86.2 kg Nora Floyd APRN.SIGNAL INSPECTOR 07/10/2024 6:20 PM Signed - Follow-up with your primary care doctor if this treatment does not work for you and symptoms do not resolve. - Go directly to Emergency Department with high fevers, chest pain, difficulty breathing or not able to tolerate fluids. URINARY TRACT INFECTION GENERAL INFORMATION: A urinary tract infection (UTI) is an infection of the bladder or kidneys. A bladder infection, called cystitis, is the more common type. If the infection travels up to the kidneys, it is called pyelonephritis. This can be more serious. UTIs are a common problem in women. Having sexual relations can leave a woman more susceptible to developing a UTI, but it is not sexually transmitted like gonorrhea. Some women have a problem with recurrent UTIs. INSTRUCTIONS: 1. Your doctor prescribed an antibiotic to treat the UTI. Take exactly as directed. Be sure to take all the medication prescribed, even if your symptoms disappear. If you stop treatment early, the infection may not be fully treated and the symptoms could come back again. 2. Get plenty of rest. You may take acetaminophen for fever and aches. 3. Drink 6 to 8 glasses of fluids, especially water, every day. This helps wash out germs from your urinary tract. Cranberry juice or other sources of vitamin C are also good for you. 4. Urinate often, as soon as you feel the urge. Empty your bladder completely. Urinate before and after you have sex. 5. Always wipe from front to back after going to the bathroom. This pushes germs away from your bladder, rather than towards it. 6. Showers are better than baths, and you should wash the genital area daily. Avoid bubble bath or bath oils if you do take a bath. 7. Wear underwear and pantyhose with a cotton crotch. CONTACT YOUR DOCTOR: 1. You have a temperature over 102F (38.8C) after 48 hours on medication. 2. You notice blood in your urine. 3. Your symptoms don't improve in 2 days. 4. You develop nausea, vomiting, diarrhea, or a rash. 5. You develop new or unexplained symptoms. These may be related to the medication you are taking. 6. Your symptoms return after you finish treatment. RETURN TO THE EMERGENCY DEPARTMENT IF: You develop vomiting and can't keep your medication or fluids down. Nora Floyd APRN.SIGNAL INSPECTOR 07/10/2024 7:18 PM Signed Madhuri Paulson is a 23 year old female who presents with UTI (Urgency, Frequency, Burning with urination. Patient does self cath she states. X 3 days/Patient did take OTC AZO last dose was lastnight) Patient is a 23-year-old female that presents in clinic with symptoms of urgency frequency and burning with urination for about 3 days. I agree with nursing intake above. Patient reports to me that she does have a history of recurrent UTIs, because she self-caths herself due to other chronic medical issues. Patient has been taking [id number] Azo, last dose was last night. No fever chills or fatigue. No other complaints today. The history is provided by the patient. No project hire was used. PAST MEDICAL HISTORY Diagnosis Date Acute pain of right shoulder 01/21/2019 Chiari malformation type I (HCC) Lymphedema Menarche 09/2011 PMH - PAST MEDICAL HISTORY OF spina bifida PMH - PAST MEDICAL HISTORY OF 01/07/2004 color vision-normal PMH - PAST MEDICAL HISTORY OF bilateral club feet PMH - PAST MEDICAL HISTORY OF broken leg in 10/09 ACTIVE PROBLEM LIST Spina Bifida of Lumbar Region (Hcc) Cauda Equina Syndrome With Neurogenic Bladder (Hcc) Muscle Weakness (Generalized) Patellar Malalignment Syndrome Constipation Abnormality of Gait Thoracic Outlet Syndrome Scapulothoracic Bursitis of Right Shoulder Chiari Malformation Type I (Hcc) Lymphedema Neurogenic Bowel Obese Obesity, Class I, Bmi 30-34.9 S/P Brain Surgery Postoperative Pain Routine Physical Examination Current Outpatient Medications Medication Sig Dispense Refill Ascorbic Acid 1,000 mg tablet Take 1 tablet by mouth once daily. albuterol HFA (PROVENTIL HFA, VENTOLIN HFA) 90 mcg/actuation inhaler Inhale 2 Puffs as instructed. albuterol HFA (PROVENTIL HFA, VENTOLIN HFA) 90 mcg/actuation inhaler Inhale 2 Puffs as instructed every 6 hours as needed for wheezing/shortness of breath. 8 g 0 acetaminophen (TYLENOL) 500 mg tablet 2 tablets by ORAL/FEEDING TUBE route every 8 hours as needed for pain. Catheter (FEMALE CATHETER) 14 Fr misc 14 Chilean, 16 inch female straight tip intermittent catheter, to use q6 hrs prn urinary retention (more content not included)... Normal [facility] URINALYSIS, DIPSTICK ONLYOrd ered By: Red Butler on 07-10-2024 Bilirubin Ql (U) Negative Negative [facility] Clarity (Unsp spec) Cloudy Abnormal Clear Buddy [facility] Color (U) Kristen Abnormal Yellow [facility] Glucose Test strip (U) [Mass/Vol] Negative Negative [facility] Hemoglobin Ql (U) Trace Abnormal Negative [facility] Interpretation and review of laboratory results Abnormal [facility] Ketones Ql (U) 2+ Abnormal Negative [facility] Leukocyte esterase Test strip Ql (U) 3+ Abnormal Negative [facility] Nitrite Ql (U) Positive Abnormal Negative [facility] pH (U) 6.0 [pH] 5.0 - 8.0 [facility] Protein (U) [Mass/Vol] 2+ Abnormal Negative [facility] Specific gravity (U) [Rel density] 1.030 1.005 - 1.030 [facility] Urobilinogen Ql (U) Trace Abnormal Negative [facility] URINALYSIS, DIPSTICK ONLYon 07-10-2024 Bilirubin Ql (U) Negative Normal Negative [facility] Comment on above: Order Comment: Speci men Type: URINE SPECIMEN [facility]: [facility] Address: [address] [place] [address] Performed By: #### U A #### [facility] CLIA [id number] [address] [place] [address] Clarity (Unsp spec) Cloudy Abnormal Clear [facility] Comment on above: Order Comment: Speci men Type: URINE SPECIMEN Ordering Facility: [facility] Address: [address] [place] [address] Performed By: #### U A #### [facility] CLIA [id number] [address] [place] [address] [place] Color (U) Kristen Abnormal Yellow [facility] Comment on above: Order Comment: Speci men Type: URINE SPECIMEN Ordering Facility: [facility] Address: [address] [place] [address] Performed By: #### U A #### [facility] CLIA [id number] [address] [place] [address] [place] Glucose Test strip (U) [Mass/Vol] Negative Normal Negative [facility] Comment on above: Order Comment: Speci men Type: URINE SPECIMEN Ordering Facility: [facility] Address: [address] [place] [address] Performed By: #### U A #### [facility] CLIA [id number] [address] Hemoglobin Ql (U) Trace Abnormal Negative [facility] Comment on above: Order Comment: Speci men Type: URINE SPECIMEN Ordering Facility: [facility] Address: [address] [place] [address] Performed By: #### U A #### [facility] CLIA [id number] [address] [place] [address] Ketones Ql (U) 2+ Abnormal Negative [facility] Comment on above: Order Comment: Speci men Type: URINE SPECIMEN Ordering Facility: [facility] Address: [address] [place] [address] Performed By: #### U A #### [facility] CLIA [id number] [address] [place] [address] Leukocyte esterase Test strip Ql (U) 3+ Abnormal Negative [facility] Comment on above: Order Comment: Speci men Type: URINE SPECIMEN Ordering Facility: [facility] Address: [address] [place] [address] Performed By: #### U A #### [facility] CLIA [id number] [address] [place] [address] Nitrite Ql (U) Positive Abnormal Negative [facility] Comment on above: Order Comment: Speci men Type: URINE SPECIMEN Ordering Facility: [facility] Address: [address] [place] [address] Performed By: #### U A #### [facility] CLIA [id number] [address] [place] [address] pH (U) 6.0 [pH] Normal 5.0-8.0 [facility] Comment on above: Order Comment: Speci men Type: URINE SPECIMEN Ordering Facility: [facility] Address: [address] [place] [address] Performed By: #### U A #### [facility] CLIA [id number] [address] [place] Protein (U) [Mass/Vol] 2+ Abnormal Negative [facility] Comment on above: Order Comment: Speci men Type: URINE SPECIMEN Ordering Facility: [facility] Address: [address] [place] [address] Performed By: #### U A #### [facility] CLIA [id number] [address] Specific gravity (U) [Rel density] 1.030 Normal 1.005-1.030 [facility] Comment on above: Order Comment: Speci men Type: URINE SPECIMEN Order[facility] Facility: [facility] Address: [address] [place] [address] Performed By: #### U A #### [facility] CLIA [id number] [address] [place] Urobilinogen Ql (U) Trace Abnormal Negative [facility] Comment on above: Order Comment: Speci men Type: URINE SPECIMEN Ordering Facility: [facility] Address: [address] [place] [address] Performed By: #### U A #### [facility] CLIA [id number] [address] OF [facility] CNOVon 06-30-2024 CNOV Office Visit (UCWSTR ) -------- MADHURI PAULSON ([id number]) 2000 F CHT Date Time Provider Department 06/30/24 9:45 AM ILIANA SIMMS [facility] During your visit today, we recorded the following information about you: Temperature Pulse Respiration Blood pressure 97.3 degrees 91/minute 18/minute 102/72 Weight Last Period 89 kg 06/13/24 Iliana Simms APRN.[facility] 06/30/2024 10:09 AM Signed CC: Patient presents with: Ear Pain: R ear pain, pain down into neck x5 days HPI: Madhuri Paulson is a 23 year old female who presents to the office with complaint of ear symptoms for 5 days. Symptoms are worsening Associated symptoms includes ear pain. Denies nausea, vomiting , and diarrhea. Treatments tried include nothing so far. with no relief of symptoms. Sick contacts: unknown. History of asthma, frequent episodes of bronchitis, chronic bronchitis, bronchiectasis or COPD: No Smoker: No Seasonal/environmental allergies: No The ROS is otherwise negative. The patient's pmh, medications, allergies, and past visits are reviewed. PHYSICAL EXAM: BP 102/72 Pulse 91 Temp 36.3 ?C (97.3 ?F) Resp 18 Wt 89 kg (196 lb 3.4 oz) LMP 06/13/2024 (Exact Date) SpO2 97% BMI 33.68 kg/m? General appearance: alert, cooperative, pleasant, in no acute distress Head: Normocephalic Eyes: EOM's intact, conjunctiva pink and moist, no icterus, sclera white, non-injected Ears: Right ear: External ear/canal- Normal, TM - erythematous. Left ear: External ear/canal- Normal, TM - clear with good landmarks Oropharynx:moist without lesions, No erythema, exudates or tonsillar hypertrophy. Heart: Negative. RRR without obvious murmur, gallop, or rubs. No ectopy. Lungs: clear to auscultation, without rales or wheeze, good air exchange PAST MEDICAL HISTORY Diagnosis Date Acute pain of right shoulder 01/21/2019 Chiari malformation type I (HCC) Lymphedema Menarche 09/2011 PMH - PAST MEDICAL HISTORY OF spina bifida PMH - PAST MEDICAL HISTORY OF 01/07/2004 color vision-normal PMH - PAST MEDICAL HISTORY OF bilateral club feet PMH - PAST MEDICAL HISTORY OF broken leg in 10/09 PAST SURGICAL HISTORY Procedure Laterality Date AFP, OPEN SPINA BIFIDA ([facility]) Spina Bifida surgery during infancy APPENDICONEOVESICOSTOMY 06/20/2016 APPENDICONEOVESICOSTOMY 12/2016 COLONOSCOPY FLX DX W/COLLJ SPEC WHEN PFRMD 10/24/2017 Colonoscopy KNEE RIGHT OP SURGERY 10/2012 right knee PAST SURGICAL HISTORY OF Bilateral Foot reconstruction x 4-5 times PAST SURGICAL HISTORY OF laser surgery on birthmark PAST SURGICAL HISTORY OF 10/2010 right knee surgery TONSILLECTOMY AND ADENOIDECTOMY ALLERGIES Banana and Latex MEDICATIONS albuterol HFA (PROVENTIL HFA, VENTOLIN HFA) 90 mcg/actuation inhaler Inhale 2 Puffs as instructed every 6 hours as needed for wheezing/shortness of breath. acetaminophen (TYLENOL) 500 mg tablet 2 tablets by ORAL/FEEDING TUBE route every 8 hours as needed for pain. Catheter (FEMALE CATHETER) 14 Fr misc 14 Chilean, 16 inch female straight tip intermittent catheter, to use q6 hrs prn urinary retention B.animalis,bifid,infanti s,long (PROBIOTIC 4X ORAL) Take 1 capsule by mouth once daily. polyethylene glycol 3350 (MIRALAX) 17 gram/dose powder One quarter capful added to 800 cc of water and then flushed through the Banda stoma FAMILY HISTORY Problem Relation Age of Onset Uterine Cancer Mother Ovarian cancer Mother Anesthesia Problems Maternal Uncle Patient's mother states her brother coded during a procedure as a baby. Not actually diagnosed with anything specific and did not undergo further anesthesia as an adult. Hypertension Maternal Grandmother Breast Cancer Maternal Grandmother Heart Maternal Grandfather Renal Cell Cancer Maternal Grandfather Thyroid Cancer Maternal Grandfather Hypertension Paternal Grandmother Hypertension Paternal Grandfather Heart Paternal Grandfather Social History Tobacco Use Smoking status: Never Smokeless tobacco: Never Tobacco comments: no smokers in home Vaping Use Vaping status: Never Used Substance Use Topics Alcohol use: Yes Comment: Not weekly Drug use: No ASSESSMENT/PLAN: 1. Acute otitis media, right - ICD9: 382.9, ICD10: H66.91 - CEFDINIR 300 MG CAPSULE Will add flonase and claritin Prescription instructions reviewed with patient as applicable. Potential red flag symptoms discussed with the patient. Reviewed appropriate action plan to take if red flag symptoms occur. Patient agreeable to treatment plan. Iliana Simms APRN.SIGNAL INSPECTOR Allergies As of Date: 06/30/2024 Noted Allergy Reaction BANANA 10/05/2010 16 - Unknown Comments: Per diagnosis LATEX 10/18/2002 16 - Unknown Comments: Per diagnosis Date Reviewed: 06/30/2024 Reviewed by: Tatyana Jones LPN - Fully Assessed Reason for Visit: Ear Pain [817] Cmt: R ea (more content not included)... Normal [facility] Abdomen Single Viewon 2023 Abdomen Single View [facility] [address] [place] [address] Abdomen Single View MR#: [id number] Acct: [id number] Name: MADHURI PAULSON Rep #: [id number] : 2000 F 23 From: Armond Pressley PCP: Dr. Juan Manuel Antonio DO Status: REG CLI Study: Abdomen Single View Date of Exam: 06/24/24 Exam# [id number] Ordering Dr: Colton Juárez DO [id number] INDICATION: bloating EXAMINATION/TECHNIQUE: X-RAY - XR Abdomen 1 View COMPARISON: 06/22/2024 FINDINGS: BOWEL GAS PATTERN: There is a moderate amount retained stool throughout the colon. There are 24 Sitzmarks markers.. There has been mild progression since prior examination with the majority of the Sitzmarks markers in the distal descending colon and sigmoid colon. No evidence of small bowel obstruction. No abnormal air collections. FREE AIR: Not assessed on a single supine view. ORGANOMEGALY: Not seen. CALCIFICATIONS: No abnormal calcifications observed. LOWER CHEST: No acute pathology. BONES AND SOFT TISSUES: No acute pathology. RAD/Abdomen Single View IMPRESSION: 1. Sitzmarks markers again noted with in the bowel, with likely transit to the distal descending colon and sigmoid colon. There has been no change or decreased number of markers. 2. No rachel bowel obstruction. Electronically Signed: Armond Stubbs MD at 0:03 EST , CC: Dr. Juan Manuel Antonio DO; Colton Juárez DO Bilingual Case Manager: Signed Normal [facility] Abdomen Single Viewon 2023 Abdomen Single View [facility] [place], [place] [address] Abdomen Single View MR#: [id number] Acct: [id number] Name: MADHURI PAULSON Rep #: [id number] : 2000 F 23 From: Armond Escobedo MD PCP: Dr. Juan Manuel Antonio DO Status: REG CLI Study: Abdomen Single View Date of Exam: 06/22/24 Exam# [id number] Ordering Dr: Colton Juárez DO [id number] STUDY: X-RAY - ABDOMEN/PELVIS REASON FOR EXAM: Female, 23 years old. constipation TECHNIQUE: Single AP view of the abdomen / pelvis. COMPARISON: None. FINDINGS: 24 Sitzmarks markers are seen within the periphery of the abdomen likely scattered throughout the colon. There is an unremarkable bowel gas pattern. The visualized liver, spleen and kidneys are grossly normal in size and morphology. Normal soft tissue structures. Normal visualized osseous structures. RAD/Abdomen Single View IMPRESSION: Sitzmarks are scattered throughout the abdomen likely in the colon. Electronically Signed: Armond Escobedo MD at 12:49 EST , CC: Dr. Juan Manuel Antonio DO; Colton Juárez DO Bilingual Case Manager: Signed Normal [facility] ANCAon 06-21-2024 Atypical pANCA <1:20 Normal Neg:<1:20 [facility] Comment on above: Order Comment: N Result Comment: The atypical pANCA pattern has been observed in a significant percentage of patients with ulcerative colitis, primary sclerosing cholangitis and autoimmune hepatitis. Performed By: #### L 3100.6900, L3200.0500, L3200.1100, L3300.1200, L3410.2400, L101.9900, L501.6710, L504.2610, L3100.5440, L5500.0550, L2100.0000, L3100.3425 ####[facility] [address] [place], [place], [id number] Cytoplasmic Ab <1:20 Normal Neg:<1:20 [facility] Comment on above: Order Comment: N Performed By: #### L 3100.6900, L3200.0500, L3200.1100, L3300.1200, L3410.2400, L101.9900, L501.6710, L504.2610, L3100.5440, L5500.0550, L2100.0000, L3100.3425 ####[facility] [address] [place], [place], [id number] Perinuclear Ab. <1:20 Normal Neg:<1:20 [facility] Comment on above: Order Comment: N Result Comment: The presence of positive fluorescence exhibiting P-ANCA or C-ANCA patterns alone is not specific for the diagnosis of Angela's Granulomatosis (WG) or microscopic polyangiitis. Decisions about treatment should not be based solely on ANCA IFA results. The International ANCA Group Consensus recommends follow up testing of positive sera with both DE- 3 and MPO-ANCA enzyme immunoassays. As many as 5% serum samples are positive only by EIA. Ref. AM J Clin Pathol 1999;111:507-513. Performed By: #### L 3100.6900, L3200.0500, L3200.1100, L3300.1200, L3410.2400, L101.9900, L501.6710, L504.2610, L3100.5440, L5500.0550, L2100.0000, L3100.3425 ####[facility] [address] [place], [place], [id number] Angiotensin Convert Enzymeon 06-21-2024 ANGIOT-CONV.ENZ 34 U/L Normal 14-82 [facility] Comment on above: Order Comment: N Result Comment: Perf ormed at: [facility] [address] [id number] Textile Scrap Salvager: Zeb Levine PhD, Phone: [phone] Performed at: - [facility] [address] [id number] Textile Scrap Salvager: Anna Henley MD, Phone: [phone] Performed By: #### L 3100.6900, L3200.0500, L3200.1100, L3300.1200, L3410.2400, L101.9900, L501.6710, L504.2610, L3100.5440, L5500.0550, L2100.0000, L3100.3425 ####[facility] [address] [place], [place], [address] Celiac Disease Profileon ENDOMYSIAL IGA Negative Normal Negative [facility] Comment on above: Order Comment: N Performed By: #### L 3100.6900, L3200.0500, L3200.1100, L3300.1200, L3410.2400, L101.9900, L501.6710, L504.2610, L3100.5440, L5500.0550, L2100.0000, L3100.3425 ####[facility] [address] [place], [place], [id number] tTG IGA <2 Normal 0-3 [facility] Comment on above: Order Comment: N Result Comment: Nega tive 0 - 3 Weak Positive 4 - 10 Positive >10 Tissue Transglutaminase (tTG) has been identified as the endomysial antigen. Studies have demonstr- ated that endomysial IgA antibodies have over 99% specificity for gluten sensitive enteropathy. Performed By: #### L 3100.6900, L3200.0500, L3200.1100, L3300.1200, L3410.2400, L101.9900, L501.6710, L504.2610, L3100.5440, L5500.0550, L2100.0000, L3100.3425 ####[facility] [address] [place], [place], [phone]) OSCAR + Protein Elect, Serumon 06-21-2024 Albumin [Mass/Vol] 3.3 g/dL Normal 2.9-4.4 [facility] Comment on above: Order Comment: N Performed By: #### L 3100.6900, L3200.0500, L3200.1100, L3300.1200, L3410.2400, L101.9900, L501.6710, L504.2610, L3100.5440, L5500.0550, L2100.0000, L3100.3425 #### [facility] [address] [place], [place], [phone] (197) Albumin/Globulin [Mass ratio] 1.1 {ratio} Normal 0.7-1.7 [facility] Comment on above: Order Comment: N Performed By: #### L 3100.6900, L3200.0500, L3200.1100, L3300.1200, L3410.2400, L101.9900, L501.6710, L504.2610, L3100.5440, L5500.0550, L2100.0000, L3100.3425 #### [facility] [address] [place], [place], [phone] (361) EPRVH-9-BSGI 0.3 g/dL Normal 0.0-0.4 [facility] Comment on above: Order Comment: N Performed By: #### L 3100.6900, L3200.0500, L3200.1100, L3300.1200, L3410.2400, L101.9900, L501.6710, L504.2610, L3100.5440, L5500.0550, L2100.0000, L3100.3425 #### [facility] [address] [place], [address] RGJSX-3-QEMG 0.8 g/dL Normal 0.4-1.0 [facility] Comment on above: Order Comment: N Performed By: #### L 3100.6900, L3200.0500, L3200.1100, L3300.1200, L3410.2400, L101.9900, L501.6710, L504.2610, L3100.5440, L5500.0550, L2100.0000, L3100.3425 #### [facility] [address] [place], [address] BETA GLOBULIN 1.2 g/dL Normal 0.7-1.3 [facility] Comment on above: Order Comment: N Performed By: #### L 3100.6900, L3200.0500, L3200.1100, L3300.1200, L3410.2400, L101.9900, L501.6710, L504.2610, L3100.5440, L5500.0550, L2100.0000, L3100.3425 #### [facility] [address] [place], [place], [phone] ([phone] GAMMA GLOBULIN 1.1 g/dL Normal 0.4-1.8 [facility] Comment on above: Order Comment: N Performed By: #### L 3100.6900, L3200.0500, L3200.1100, L3300.1200, L3410.2400, L101.9900, L501.6710, L504.2610, L3100.5440, L5500.0550, L2100.0000, L3100.3425 #### [facility] [address] [place], [place], [phone] (409) Globulin (S) [Mass/Vol] 3.3 g/dL Normal 2.2-3.9 [facility] Comment on above: Order Comment: N Performed By: #### L 3100.6900, L3200.0500, L3200.1100, L3300.1200, L3410.2400, L101.9900, L501.6710, L504.2610, L3100.5440, L5500.0550, L2100.0000, L3100.3425 #### [facility] [address] [place], [place], [phone] OSCAR RESULT,S Comment Normal . [facility] Comment on above: Order Comment: N Result Comment: No m onoclonality detected. Performed By: #### L 3100.6900, L3200.0500, L3200.1100, L3300.1200, L3410.2400, L101.9900, L501.6710, L504.2610, L3100.5440, L5500.0550, L2100.0000, L3100.3425 #### [facility] [address] [place], [place], [phone] IMMUNOGLOB A QN 218 mg/dL Normal 87-352 [facility] Comment on above: Order Comment: N Performed By: #### L 3100.6900, L3200.0500, L3200.1100, L3300.1200, L3410.2400, L101.9900, L501.6710, L504.2610, L3100.5440, L5500.0550, L2100.0000, L3100.3425 #### [facility] [address] [place], [place], [phone] IMMUNOGLOB M QN 153 mg/dL Normal 26-217 [facility] Comment on above: Order Comment: N Performed By: #### L 3100.6900, L3200.0500, L3200.1100, L3300.1200, L3410.2400, L101.9900, L501.6710, L504.2610, L3100.5440, L5500.0550, L2100.0000, L3100.3425 #### [facility] [address] [place], [place], [phone] (369) M-Molina Not Observed Normal Not Observed [facility] Comment on above: Order Comment: N Performed By: #### L 3100.6900, L3200.0500, L3200.1100, L3300.1200, L3410.2400, L101.9900, L501.6710, L504.2610, L3100.5440, L5500.0550, L2100.0000, L3100.3425 #### [facility] [address] [place], [place], [phone] NOTE: Comment Normal . [facility] Comment on above: Order Comment: N Result Comment: Prot ein electrophoresis scan will follow via computer, mail, or radio station engineer delivery. Performed By: #### L 3100.6900, L3200.0500, L3200.1100, L3300.1200, L3410.2400, L101.9900, L501.6710, L504.2610, L3100.5440, L5500.0550, L2100.0000, L3100.3425 #### [facility] [address] [place], [address] Protein [Mass/Vol] 6.6 g/dL Normal 6.0-8.5 [facility] Comment on above: Order Comment: N Performed By: #### L 3100.6900, L3200.0500, L3200.1100, L3300.1200, L3410.2400, L101.9900, L501.6710, L504.2610, L3100.5440, L5500.0550, L2100.0000, L3100.3425 #### [facility] [address] [place], [address] IgG Subclasseson 06-21-2024 IgG, SUBCLASS 1 519 mg/dL Normal 248-810 [facility] Comment on above: Order Comment: N Performed By: #### L 3100.6900, L3200.0500, L3200.1100, L3300.1200, L3410.2400, L101.9900, L501.6710, L504.2610, L3100.5440, L5500.0550, L2100.0000, L3100.3425 ####[facility] [address] [place], [address] IgG, SUBCLASS 2 266 mg/dL Normal 130-555 [facility] Comment on above: Order Comment: N Performed By: #### L 3100.6900, L3200.0500, L3200.1100, L3300.1200, L3410.2400, L101.9900, L501.6710, L504.2610, L3100.5440, L5500.0550, L2100.0000, L3100.3425 ####[facility] [address] [place], [address] IgG, SUBCLASS 3 45 mg/dL Normal 15-102 [facility] Comment on above: Order Comment: N Performed By: #### L 3100.6900, L3200.0500, L3200.1100, L3300.1200, L3410.2400, L101.9900, L501.6710, L504.2610, L3100.5440, L5500.0550, L2100.0000, L3100.3425 ####[facility] [address] [place], [address] IgG, SUBCLASS 4 35 mg/dL Normal 2-96 [facility] Comment on above: Order Comment: N Performed By: #### L 3100.6900, L3200.0500, L3200.1100, L3300.1200, L3410.2400, L101.9900, L501.6710, L504.2610, L3100.5440, L5500.0550, L2100.0000, L3100.3425 ####[facility] [address] [place], [address] IGG,QUANT 963 mg/dL Normal 586-1602 [facility] Comment on above: Order Comment: N Performed By: #### L 3100.6900, L3200.0500, L3200.1100, L3300.1200, L3410.2400, L101.9900, L501.6710, L504.2610, L3100.5440, L5500.0550, L2100.0000, L3100.3425 ####[facility] [address] [place], [address] Immunoglobulins G/A/M/Ad IMMUNOGLOB E QN 19 IU/mL Normal 6-495 [facility] Comment on above: Order Comment: N Performed By: #### L 3100.6900, L3200.0500, L3200.1100, L3300.1200, L3410.2400, L101.9900, L501.6710, L504.2610, L3100.5440, L5500.0550, L2100.0000, L3100.3425 ####[facility] [address] [place], [address] L2100.0000on 06-21-2024 ACCA 15 units Normal 0-90 [facility] Comment on above: Order Comment: N Result Comment: Nega tive: <80 Equivocal: 80-90 Positive: >90 Performed By: #### L 3100.6900, L3200.0500, L3200.1100, L3300.1200, L3410.2400, L101.9900, L501.6710, L504.2610, L3100.5440, L5500.0550, L2100.0000, L3100.3425 #### [facility] [address] [place], [address] ALCA 5 units Normal 0-60 [facility] Comment on above: Order Comment: N Result Comment: Nega tive:<55 Equivocal: 55-60 Positive: >60 Performed By: #### L 3100.6900, L3200.0500, L3200.1100, L3300.1200, L3410.2400, L101.9900, L501.6710, L504.2610, L3100.5440, L5500.0550, L2100.0000, L3100.3425 #### [facility] [address] [place], [address] AMCA 16 units Normal 0-100 [facility] Comment on above: Order Comment: N Result Comment: Nega tive: <90 Equivocal: 90-100 Positive: >100 This test was developed and its performance characteristics determined by [employer]. It has not been cleared or approved by the Food and Drug Administration. The FDA has determined that such clearance or approval is not necessary. Performed By: #### L 3100.6900, L3200.0500, L3200.1100, L3300.1200, L3410.2400, L101.9900, L501.6710, L504.2610, L3100.5440, L5500.0550, L2100.0000, L3100.3425 #### [facility] [address] [place], [address] Atypical pANCA Negative Normal Negative [facility] Comment on above: Order Comment: N Performed By: #### L 3100.6900, L3200.0500, L3200.1100, L3300.1200, L3410.2400, L101.9900, L501.6710, L504.2610, L3100.5440, L5500.0550, L2100.0000, L3100.3425 #### [facility] [address] [place], [address] COMMENT Comment Normal . [facility] Comment on above: Order Comment: N Result Comment: Jennifer barb is not suggestive of Inflammatory Bowel Disease Performed By: #### L 3100.6900, L3200.0500, L3200.1100, L3300.1200, L3410.2400, L101.9900, L501.6710, L504.2610, L3100.5440, L5500.0550, L2100.0000, L3100.3425 #### [facility] [address] [place], [address] Abhijeet 36 units Normal 0-50 [facility] Comment on above: Order Comment: N Result Comment: Nega tive: <45 Equivocal: 45-50 Positive: >50 Performed By: #### L 3100.6900, L3200.0500, L3200.1100, L3300.1200, L3410.2400, L101.9900, L501.6710, L504.2610, L3100.5440, L5500.0550, L2100.0000, L3100.3425 #### [facility] [place], [address] THERESE Comprehensive Panelon THERESE TABLE Comment Normal . [facility] Comment on above: Result Comment: Auto antibody Disease Association Condition Frequency --------- Antinuclear Antibody, SLE, mixed connective Direct (THERESE-D) tissue diseases --------- dsDNA SLE 40 - 60% --------- Chromatin Drug induced SLE 90% SLE 48 - 97% --------- SSA (Ro) SLE 25 - 35% Sjogren's Syndrome 40 - 70% Lupus 100% --------- SSB (La) SLE 10% Sjogren's Syndrome 30% --------- Sm (anti-Tavarez) SLE 15 - 30% --------- SOCK KNITTER Mixed Connective Tissue Disease 95% (U1 nRNP, SLE 30 - 50% anti-ribonucleoprotein) Polymyositis and/or Dermatomyositis 20% --------- Scl-70 (antiDNA Scleroderma (diffuse) 20 - 35% topoisomerase) Crest 13% --------- Марина-1 Polymyositis and/or Dermatomyositis 20 - 40% --------- Centromere B Scleroderma - Crest variant 80% Performed By: #### L 3100.6900, L3200.0500, L3200.1100, L3300.1200, L3410.2400, L101.9900, L501.6710, L504.2610, L3100.5440, L5500.0550, L2100.0000, L3100.3425 #### [facility] [address] [place], [place] [address], [address] ANTI-CENT B AB <0.2 Normal 0.0-0.9 [facility] Comment on above: Performed By: #### L 3100.6900, L3200.0500, L3200.1100, L3300.1200, L3410.2400, L101.9900, L501.6710, L504.2610, L3100.5440, L5500.0550, L2100.0000, L3100.3425 #### [facility] [address] [place], [place], [id number] ANTI-DNA (DS)AB <1 Normal 0-9 [facility] Comment on above: Result Comment: Nega tive <5 Equivocal 5 - 9 Positive >9 Performed By: #### L 3100.6900, L3200.0500, L3200.1100, L3300.1200, L3410.2400, L101.9900, L501.6710, L504.2610, L3100.5440, L5500.0550, L2100.0000, L3100.3425 #### [facility] [address] [place], [place], [id number] ANTI-МАРИНА-1 <0.2 Normal 0.0-0.9 [facility] Comment on above: Performed By: #### L 3100.6900, L3200.0500, L3200.1100, L3300.1200, L3410.2400, L101.9900, L501.6710, L504.2610, L3100.5440, L5500.0550, L2100.0000, L3100.3425 #### [facility] [address] [place], [place], [id number] ANTI-SS-A < 0.2 Normal 0.0-0.9 [facility] Comment on above: Performed By: #### L 3100.6900, L3200.0500, L3200.1100, L3300.1200, L3410.2400, L101.9900, L501.6710, L504.2610, L3100.5440, L5500.0550, L2100.0000, L3100.3425 #### [facility] [address] [place], [address] ANTI-SS-B < 0.2 Normal 0.0-0.9 [facility] Comment on above: Performed By: #### L 3100.6900, L3200.0500, L3200.1100, L3300.1200, L3410.2400, L101.9900, L501.6710, L504.2610, L3100.5440, L5500.0550, L2100.0000, L3100.3425 #### [facility] [address] [place], [address] ANTICHROMATIN <0.2 Normal 0.0-0.9 [facility] Comment on above: Performed By: #### L 3100.6900, L3200.0500, L3200.1100, L3300.1200, L3410.2400, L101.9900, L501.6710, L504.2610, L3100.5440, L5500.0550, L2100.0000, L3100.3425 #### [facility] [address] [place], [address] ANTISCLERODERM <0.2 Normal 0.0-0.9 [facility] Comment on above: Performed By: #### L 3100.6900, L3200.0500, L3200.1100, L3300.1200, L3410.2400, L101.9900, L501.6710, L504.2610, L3100.5440, L5500.0550, L2100.0000, L3100.3425 #### [facility] [address] [place], [address] SOCK KNITTER Ab <0.2 Normal 0.0-0.9 [facility] Comment on above: Performed By: #### L 3100.6900, L3200.0500, L3200.1100, L3300.1200, L3410.2400, L101.9900, L501.6710, L504.2610, L3100.5440, L5500.0550, L2100.0000, L3100.3425 #### [facility] [address] [place], [place], [address] TAVAREZ Ab <0.2 Normal 0.0-0.9 [facility] Comment on above: Performed By: #### L 3100.6900, L3200.0500, L3200.1100, L3300.1200, L3410.2400, L101.9900, L501.6710, L504.2610, L3100.5440, L5500.0550, L2100.0000, L3100.3425 #### [facility] [address] [place], [place], [address] [facility] 06-19-2024 [facility] Telephone (GUERDA) -------- MADHURI PAULSON ([id number]) [address] [facility] Date Time Provider Department 06/19/24 JUAN MANUEL [facility] During your visit today, we recorded the following information about you: Elier Andrews RN 06/19/2024 5:01 PM Signed Patient asking Caitlin, if you meant to sent the Augmentin liquid to [facility]. Reports the pharmacist questioned it also since it is a valerie dose. Patient just wants to make sure she is suppose to take the liquid augmentin. Pt states she is able to swallow pills. Please advise pt via [facility] or telephone. Caitlin Curtis APRN.SIGNAL INSPECTOR 06/19/2024 5:08 PM Signed No, I am so sorry! I have no idea why I accidentally sent the liquid version. New rx of PO pills is sent in. So Caitlin lantigua APRN.SIGNAL INSPECTOR Shannon Acharya MA 06/19/2024 5:17 PM Signed Pt informed, verbalized understanding Shannon Acharya MA Allergies As of Date: 06/19/2024 Noted Allergy Reaction BANANA 10/05/2010 16 - Unknown Comments: Per diagnosis LATEX 10/18/2002 16 - Unknown Comments: Per diagnosis Date Reviewed: 06/17/2024 Reviewed by: Caitlin Curtis APRN.CNP - Fully Assessed Reason for Visit: Medication Problem [65] Order(s):amoxicillin-cla vulanate potassium (AUGMENTIN) 875-125 mg per tabletTake 1 tablet by mouth two times a day for 10 days.Disp: 20 tabletRfl: 0 Prescriptions as of 06/19/2024 - amoxicillin-clavulanate potassium (AUGMENTIN) 875-125 mg per tablet Take 1 tablet by mouth two times a day for 10 days. - methylPREDNISolone (MEDROL, GITA,) 4 mg Dose-Pack Follow dosing instructions, take with food. - codeine-guaiFENesin (GUAIFENESIN AC) 10-100 mg/5 mL syrup Take 5 mL by mouth three times a day as needed for up to 8 days. - albuterol HFA (PROVENTIL HFA, VENTOLIN HFA) 90 mcg/actuation inhaler Inhale 2 Puffs as instructed every 6 hours as needed for wheezing/shortness of breath. - acetaminophen (TYLENOL) 500 mg tablet 2 tablets by ORAL/FEEDING TUBE route every 8 hours as needed for pain. - Catheter (FEMALE CATHETER) 14 Fr misc 14 Chilean, 16 inch female straight tip intermittent catheter, to use q6 hrs prn urinary retention - B.animalis,bifid,infanti s,long (PROBIOTIC 4X ORAL) Take 1 capsule by mouth once daily. 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] 10/11/2010 Constipation [K59.00] 02/18/2014 Abnormality of gait [R26.9] 03/03/2015 Thoracic outlet syndrome [G54.0] 09/17/2018 Scapulothoracic bursitis of right shoulder [M75*01/21/2019 Acute pain of right shoulder [M25.511] 01/21/2019 06/29/2020 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 Medications Discontinued During This Encounter Prescriptions - amoxicillin-clavulanic acid (AUGMENTIN) 250-62.5 mg/5 mL suspension (Discontinued) Take 10 mL by mouth two times a day for 10 days. Encounter Status:Closed by SHANNON ACHARYA on 06/19/24 Normal [facility] L5500.0550on 06-19-2024 BEEF <0.10 Normal Class 0 [facility] Comment on above: Performed By: #### L 3100.6900, L3200.0500, L3200.1100, L3300.1200, L3410.2400, L101.9900, L501.6710, L504.2610, L3100.5440, L5500.0550, L2100.0000, L3100.3425 #### [facility] [place], [address] CHOCOLATE <0.10 Normal Class 0 [facility] Comment on above: Performed By: #### L 3100.6900, L3200.0500, L3200.1100, L3300.1200, L3410.2400, L101.9900, L501.6710, L504.2610, L3100.5440, L5500.0550, L2100.0000, L3100.3425 #### [facility] [address] [place], [place], [id number] CODFISH <0.10 Normal Class 0 [facility] Comment on above: Performed By: #### L 3100.6900, L3200.0500, L3200.1100, L3300.1200, L3410.2400, L101.9900, L501.6710, L504.2610, L3100.5440, L5500.0550, L2100.0000, L3100.3425 #### [facility] [address] [place], [address] COMMENT Comment Normal . [facility] Comment on above: Result Comment: Barbara ray of Specific IgE Class Description of Class ----- < 0.10 0 Negative 0.10 - 0.31 0/I Equivocal/Low 0.32 - 0.55 I Low 0.56 - 1.40 II Moderate 1.41 - 3.90 III High 3.91 - 19.00 IV Very High 19.01 - 100.00 V Very High >100.00 Very High Performed By: #### L 3100.6900, L3200.0500, L3200.1100, L3300.1200, L3410.2400, L101.9900, L501.6710, L504.2610, L3100.5440, L5500.0550, L2100.0000, L3100.3425 #### [facility] [address] [place], [place], [id number] CORN <0.10 Normal Class 0 [facility] Comment on above: Performed By: #### L 3100.6900, L3200.0500, L3200.1100, L3300.1200, L3410.2400, L101.9900, L501.6710, L504.2610, L3100.5440, L5500.0550, L2100.0000, L3100.3425 #### [facility] [address] [place], [address] EGG, WHOLE <0.10 Normal Class 0 [facility] Comment on above: Result Comment: Perf ormed at: - [facility] [id number] Textile Scrap Salvager: Zeb Levine PhD, Phone: [phone] Performed at: - [facility] [id number] Textile Scrap Salvager: Anna Henley MD, Phone: [phone] Performed By: #### L 3100.6900, L3200.0500, L3200.1100, L3300.1200, L3410.2400, L101.9900, L501.6710, L504.2610, L3100.5440, L5500.0550, L2100.0000, L3100.3425 #### [facility] [address] [place], [address] MILK (COW) <0.10 Normal Class 0 [facility] Comment on above: Performed By: #### L 3100.6900, L3200.0500, L3200.1100, L3300.1200, L3410.2400, L101.9900, L501.6710, L504.2610, L3100.5440, L5500.0550, L2100.0000, L3100.3425 #### [facility] [address] [place], [address] MUSSELS <0.10 Normal Class 0 [facility] Comment on above: Performed By: #### L 3100.6900, L3200.0500, L3200.1100, L3300.1200, L3410.2400, L101.9900, L501.6710, L504.2610, L3100.5440, L5500.0550, L2100.0000, L3100.3425 #### [facility] [address] [place], [place], [id number] PEANUT <0.10 Normal Class 0 [facility] Comment on above: Performed By: #### L 3100.6900, L3200.0500, L3200.1100, L3300.1200, L3410.2400, L101.9900, L501.6710, L504.2610, L3100.5440, L5500.0550, L2100.0000, L3100.3425 #### [facility] [address] [place], [place], [id number] PORK <0.10 Normal Class 0 [facility] Comment on above: Performed By: #### L 3100.6900, L3200.0500, L3200.1100, L3300.1200, L3410.2400, L101.9900, L501.6710, L504.2610, L3100.5440, L5500.0550, L2100.0000, L3100.3425 #### [facility] [address] [place], [place], [id number] SALMON <0.10 Normal Class 0 [facility] Comment on above: Performed By: #### L 3100.6900, L3200.0500, L3200.1100, L3300.1200, L3410.2400, L101.9900, L501.6710, L504.2610, L3100.5440, L5500.0550, L2100.0000, L3100.3425 #### [facility] [address] [place], [place], [id number] SHRIMP <0.10 Normal Class 0 [facility] Comment on above: Performed By: #### L 3100.6900, L3200.0500, L3200.1100, L3300.1200, L3410.2400, L101.9900, L501.6710, L504.2610, L3100.5440, L5500.0550, L2100.0000, L3100.3425 #### [facility] [address] [place], [place], [id number] SOYBEAN <0.10 Normal Class 0 [facility] Comment on above: Performed By: #### L 3100.6900, L3200.0500, L3200.1100, L3300.1200, L3410.2400, L101.9900, L501.6710, L504.2610, L3100.5440, L5500.0550, L2100.0000, L3100.3425 #### [facility] [address] [place], [place], [id number] TUNA <0.10 Normal Class 0 [facility] Comment on above: Performed By: #### L 3100.6900, L3200.0500, L3200.1100, L3300.1200, L3410.2400, L101.9900, L501.6710, L504.2610, L3100.5440, L5500.0550, L2100.0000, L3100.3425 #### [facility] [address] [place], [place], [id number] WHEAT <0.10 Normal Class 0 [facility] Comment on above: Performed By: #### L 3100.6900, L3200.0500, L3200.1100, L3300.1200, L3410.2400, L101.9900, L501.6710, L504.2610, L3100.5440, L5500.0550, L2100.0000, L3100.3425 #### [facility] [address] [place], [place], [id number] Rufina 06-18-2024 CNPN Telephone (FAMPWS) -------- MADHURI PAULSON ([id number]) 2000 F CHT Date Time Provider Department 06/18/24 JUAN MANUEL ANTONIOPWS During your visit today, we recorded the following information about you: Shannon Acharya MA 06/18/2024 7:40 AM Signed Please review pt message- Hi Dr. Antonio?s office, I went into my pharmacy and they don?t carry the prescription for Augmentin dose that was prescribed to me after today?s appointment. Is there anyway you could double check to make sure it was the right dose ordered and contact [facility] and [facility] regarding this. Thank you so much for your time and help. Juan Manuel Antonio DO 06/18/2024 1:42 PM Signed I Didn't see this patient the other day Please call and clarify if rx needs to be a liquid and call pharmacy then to determine how rx needs to be called in DO Kirsty Klein Rachel L, MA 06/18/2024 3:29 PM Addendum Patient seen by Caitlin Curtis on 06/17/24. Augmentin 250-62.5/5 mL suspension was sent to [facility]. Phone call to pharmacy, they carry Augmentin 500/5mL, line cut out. Will try again. MARILY Elizondo Rachel L, MA 06/18/2024 4:30 PM Signed Spoke to [facility], Augmentin 250-62.5/5mL ready for order picker LM for patient to contact office to inform. MARILY Elizondo Michelle, JUDE 06/18/2024 5:15 PM Signed PATIENT NOTIFIED OF INFORMATION Allergies As of Date: 06/18/2024 Noted Allergy Reaction BANANA 10/05/2010 16 - Unknown Comments: Per diagnosis LATEX 10/18/2002 16 - Unknown Comments: Per diagnosis Date Reviewed: 06/17/2024 Reviewed by: Caitlin Curtis APRN.SIGNAL INSPECTOR - Fully Assessed Reason for Visit: Medication Problem [65] Prescriptions as of 06/18/2024 - iv contrast (will be provided with radiology test) CT Chest W -Inject, intravenously, once for 1 dose.No IV access, insert saline lock prior to the beginning of sedation, infusion, injection of imaging exam. Discontinue saline lock post exam. If Pt. has a central line or IVAD, may access for administration according to line specific nursing protocol. Once exam is complete flush line and de-access according to line specific nursing protocol in the CT contrast administration guidelines link. - amoxicillin-clavulanic acid (AUGMENTIN) 250-62.5 mg/5 mL suspension Take 10 mL by mouth two times a day for 10 days. - methylPREDNISolone (MEDROL, GITA,) 4 mg Dose-Pack Follow dosing instructions, take with food. - codeine-guaiFENesin (GUAIFENESIN AC) 10-100 mg/5 mL syrup Take 5 mL by mouth three times a day as needed for up to 8 days. - albuterol HFA (PROVENTIL HFA, VENTOLIN HFA) 90 mcg/actuation inhaler Inhale 2 Puffs as instructed every 6 hours as needed for wheezing/shortness of breath. - acetaminophen (TYLENOL) 500 mg tablet 2 tablets by ORAL/FEEDING TUBE route every 8 hours as needed for pain. - Catheter (FEMALE CATHETER) 14 Fr misc 14 Chilean, 16 inch female straight tip intermittent catheter, to use q6 hrs prn urinary retention - B.animalis,bifid,infanti s,long (PROBIOTIC 4X ORAL) Take 1 capsule by mouth once daily. 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] 10/11/2010 Constipation [K59.00] 02/18/2014 Abnormality of gait [R26.9] 03/03/2015 Thoracic outlet syndrome [G54.0] 09/17/2018 Scapulothoracic bursitis of right shoulder [M75*01/21/2019 Acute pain of right shoulder [M25.511] 01/21/2019 06/29/2020 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] Lymphedema [I89.0] Neurogenic bowel [K59.2] 06/20/2016 Obese [E66.9] Obesity, Class I, BMI 30-34.9 [E66.811] 12/15/2023 S/P brain surgery [Z98.890] 12/15/2023 Postoperative pain [G89.18] 12/18/2023 Routine physical examination [Z00.00] 12/27/2023 Encounter Status:Closed by WOOD BLEVINS on 06/18/24 Normal [facility] IgG abOrdered By: Andrew Juárez on 06-17-2024 Saccharomyces cerevisiae (Abhijeet)IgG 36 units 0-50 [facility] Comment on above: Negative: <45 Equivo kari: 45-50 Positive: >50 Addendum DocumentOrdered By: Colton Juárez on 06-17-2024 Serum Immunofixation Comments Comment . [facility] Comment on above: Protein electrophore sis scan will follow via computer,mail, or radio station engineer delivery. Albumin Elph [Mass/Vol]Order ed By: Colton Juárez on 06-17-2024 Albumin [Mass/Vol] 3.3 g/dL 2.9-4.4 [facility] Alpha 1 globulin Elph [Mass/ Vol]Ordered By: Colton Juárez on 06-17-2024 Ahsen-9-Dcfrdsisy (OSCAR) 0.3 g/dL 0.0-0.4 [facility] Ajbjr-3-Qcgbwagdn (OSCAR) 0.8 g/dL 0.4-1.0 [facility] Atypical perinuclear antineu trophil cytoplasmic antibodies measurementOrdered By: Colton Juárez on 06-17-2024 Atypical p-ANCA <1:20 titer Neg:<1:20 [facility] Comment on above: *Additional results available. Contact laboratory/see report*The atypical pANCA pattern has been observed in asignificant percentage of patients with ulcerative colitis,primary sclerosing cholangitis and autoimmune hepatitis. Beef IgE Qn (S)Ordered By: Miquel Juárez on 06-17-2024 Beef Allergen (RAST) <0.10 kU/L Class 0 [facility] Beta globulin Elph [Mass/Vol ]Ordered By: Colton Juárez on 06-17-2024 Beta-Globulins (OSCAR) 1.2 g/dL 0.7-1.3 [facility] C-reactive protein measureme nt by high sensitivity methodOrdered By: Colton Juárez on 06-17-2024 C-Reactive Protein Extended Range 3.84 mg/L High 0.0-3.0 [facility] Comment on above: C-Reactive Protein ( CRP) provides useful information for thediagnosis, therapy and monitoring of inflammatory processesand associated diseases. For the evaluation of Relative Riskfor Cardiovascular Disease, a High Sensitivity CRP (HSCRP)should be ordered. CNOVon 06-17-2024 CNOV Office Visit (FAMPWS ) -------- MADHURI PAULSON ([id number]) 2000 F CHT Date Time Provider Department 06/17/24 10:00 AM CAITLIN CURTIS FAMPWS During your visit today, we recorded the following information about you: Pulse Respiration Blood pressure Weight 99/minute 14/minute 120/68 90.3 kg Caitlin Curtis APRN.SIGNAL INSPECTOR 06/17/2024 10:57 AM Signed Chief Complaint Patient presents with: urgent care f/up: Covid, pneumonia. Cough remains and sob hard to catch breath HPI Madhuri Paulson is a 23 year old female who presents here today for Above Complaints. Madhuri is an established patient of Dr. Antonio, DO and myself. Concerns today... Express care follow-up --- Express care visit on 06/12 d/t cough and SOB x 3 weeks. Diagnosed clinically with lower respiratory tract here [express care] 05/29/24 and treated with doxycyline and inhaler. She had prednisone taper added at primary care 05/31/24. Her fiance tested positive for COVID after that visit and she had a positive home COVID test then too. Her URI symptoms and fever resolved but her chest feels like there is a pile of bricks on it still. ASSESSMENT/PLAN: 1. SOB (shortness of breath) - ICD9: 786.05, ICD10: R06.02 (primary diagnosis) 2. Acute COVID-19 - ICD9: 079.89, ICD10: U07.1 - XR CHEST 2V FRONTAL/LAT IMPRESSION: No acute radiographic abnormality. Persistent dyspnea and chest pressure following COVID. No current evidence for pneumonia. Schedule follow up with primary care or pulmonology. Today in office.... Pt reports after antibiotic she felt somewhat better but now much worse again. Reports deep, productive cough with thick green/deras sputum. No hx of asthma -- using inhaler as prescribed about every 6 hours with little relief. Feels like bricks are sitting on her chest. Reports SOB with exertion and chest pain AND dizziness when taking deep breaths. Recent COVID + about 2 weeks ago in the middle of all of this. No other concerns or complaints. Past medical history, appointments, medications, allergies reviewed. Previous Medical History PAST MEDICAL HISTORY Diagnosis Date Acute pain of right shoulder 01/21/2019 Chiari malformation type I (HCC) Lymphedema Menarche 09/2011 PMH - PAST MEDICAL HISTORY OF spina bifida PMH - PAST MEDICAL HISTORY OF 01/07/2004 color vision-normal PMH - PAST MEDICAL HISTORY OF bilateral club feet PMH - PAST MEDICAL HISTORY OF broken leg in 10/09 Previous Surgical History PAST SURGICAL HISTORY Procedure Laterality Date AFP, OPEN SPINA BIFIDA ([facility]) Spina Bifida surgery during infancy APPENDICONEOVESICOSTOMY 06/20/2016 APPENDICONEOVESICOSTOMY 12/2016 COLONOSCOPY FLX DX W/COLLJ SPEC WHEN PFRMD 10/24/2017 Colonoscopy KNEE RIGHT OP SURGERY 10/2012 right knee PAST SURGICAL HISTORY OF Bilateral Foot reconstruction x 4-5 times PAST SURGICAL HISTORY OF laser surgery on birthmark PAST SURGICAL HISTORY OF 10/2010 right knee surgery TONSILLECTOMY AND ADENOIDECTOMY Family History FAMILY HISTORY Problem Relation Age of Onset Uterine Cancer Mother Ovarian cancer Mother Anesthesia Problems Maternal Uncle Patient's mother states her brother coded during a procedure as a baby. Not actually diagnosed with anything specific and did not undergo further anesthesia as an adult. Hypertension Maternal Grandmother Breast Cancer Maternal Grandmother Heart Maternal Grandfather Renal Cell Cancer Maternal Grandfather Thyroid Cancer Maternal Grandfather Hypertension Paternal Grandmother Hypertension Paternal Grandfather Heart Paternal Grandfather Patient Allergies ALLERGIES Allergen Reactions Banana Unknown Per diagnosis Latex Unknown Per diagnosis Current Medications Current Outpatient Medications on File Prior to Visit Medication Sig benzonatate (TESSALON PERLE) 100 mg capsule Take 1 capsule by mouth three times a day as needed for cough. (Patient not taking: Reported on 06/12/2024) albuterol HFA (PROVENTIL HFA, VENTOLIN HFA) 90 mcg/actuation inhaler Inhale 2 Puffs as instructed every 6 hours as needed for wheezing/shortness of breath. acetaminophen (TYLENOL) 500 mg tablet 2 tablets by ORAL/FEEDING TUBE route every 8 hours as needed for pain. Catheter (FEMALE CATHETER) 14 Fr misc 14 Chilean, 16 inch female straight tip intermittent catheter, to use q6 hrs prn urinary retention B.animalis,bifid,infanti s,long (PROBIOTIC 4X ORAL) Take 1 capsule by mouth once daily. polyethylene glycol 3350 (MIRALAX) 17 gram/dose powder One quarter capful added to 800 cc of water and then flushed through the Banda stoma No current facility-administered medications on file prior to visit. Social History Social History Tobacco Use Smoking status: Never Smokeless tobacco: Never Tobacco comments: no smokers in home Vaping Use Vaping status: Never Us (more content not included)... Normal [facility] CRPon 06-17-2024 C-REACTIVE PROT 3.84 mg/L High 0.0-3.0 [facility] Comment on above: Order Comment: 1 Result Comment: C-Re active Protein (CRP) provides useful information for the diagnosis, therapy and monitoring of inflammatory processes and associated diseases. For the evaluation of Relative Risk for Cardiovascular Disease, a High Sensitivity CRP (HSCRP) should be ordered. Performed By: #### L 3100.4830, L3200.0500, L3200.1100, L3300.1200, L3410.2400, L101.9900, L501.6710, L504.2610, L3100.5440, L5500.0550, L2100.0000, L3100.3425 #### [facility] [address] [place], [address] Centromere B antibody assayO rdered By: Colton Juárez on 06-17-2024 Centromere B Antibody <0.2 AI 0.0-0.9 [facility] Chitobioside IgA IA QnOrdere d By: Colton Juárez on 06-17-2024 Chitobioside Carbohydrat (ACCA) IgA 15 units 0-90 [facility] Comment on above: Negative: <80 Equivo kari: 80-90 Positive: >90 Chocolate IgE Qn (S)Ordered By: Colton Juárez on 06-17-2024 Chocolate Allergen (RAST) <0.10 kU/L Class 0 [facility] Chromatin antibody assayOrde red By: Colton Juárez on 06-17-2024 Antichromatin Antibodies <0.2 AI 0.0-0.9 [facility] Codfish IgE Qn (S)Ordered By : Colton Juárez on 06-17-2024 Codfish Allergen (RAST) <0.10 kU/L Class 0 [facility] [place] IgE Qn (S)Ordered By: Miquel Juárez on 06-17-2024 [place] Allergen (RAST) <0.10 kU/L Class 0 [facility] Cow milk IgE Qn (S)Ordered B y: Colton Juárez on 06-17-2024 Cow's Milk Allergen <0.10 kU/L Class 0 [facility] DNA double strand Ab Qn (S)O rdered By: Colton Juárez on 06-17-2024 Anti-Double Strand DNA Antibody <1 IU/mL 0-9 [facility] Comment on above: Negative <5 Equivoca l 5 - 9 Positive >9 Endomysial IgA antibody assa yOrdered By: Colton Juárez on 06-17-2024 Endomysial IgA Antibody Negative Negative [facility] Erythrocyte Sed Rateon 06-17 SED RATE 8 mm/hr Normal 0-30 [facility] Comment on above: Performed By: #### L 3100.6900, L3200.0500, L3200.1100, L3300.1200, L3410.2400, L101.9900, L501.6710, L504.2610, L3100.5440, L5500.0550, L2100.0000, L3100.3425 #### [facility] [address] [place], [address] Erythrocyte sedimentation ra teOrdered By: Colton Juárez on 06-17-2024 ESR (Bld) [Velocity] 8 mm/h 0-30 [facility] Gamma globulin Elph [Mass/Vo l]Ordered By: Colton Juárez on 06-17-2024 Gamma Globulins (OSCAR) 1.1 g/dL 0.4-1.8 [facility] Gastroenterology Visit Repor ton 06-17-2024 Gastroenterology Visit Report [facility] [address] [place] [address] OFFICE VISIT Date of Service: 06/17/24 MR#: [id number] Acct: [id number] Name: MADHURI PAULSON Rep #: [id number] : 2000 Provider: Colton Juárez DO Age/Sex: 23/F Location: [facility] [place] Status: Signed Intake Vital Signs 05/20/21 11:31 Height 5 ft 3 in Intake Visit Reasons: Spinal Bifida Allergies latex Allergy (Verified 12/14/13 03:59) Other Medications ???Medication ???Instructions ???Recorded ???Confirmed ???Type ascorbic acid (vitamin C) 500 mg mg PO 06/17/24 06/17/24 History capsule lactobacillus combination no.4 3 3,000 mmu cells PO QDAY 06/17/24 06/17/24 History billion cell capsule (Probiotic) naproxen sodium 220 mg tablet 220 mg PO BID PRN 06/17/24 06/17/24 History (Aleve) PFSH Social History Smoking Status: Never smoker HPI HPI Details: MADHURI PAULSON, is a 23 F who presents to the office today for initial consult. *[facility] established 06.17.24 pt reports she is presenting to establish care with [facility] after moving back to the area. Pt reports long hx of GI issues. Reports she has had 3 Banda Stoma surgeries to help her go to the bathroom and sometimes it helps and sometimes it doesn't. Pt reports that she is not currently having any GI symptoms of concern. She has been dealing with the complications of spina bifida including Arnold-Chiari malformation which she recently had brain surgery to correct. She is having some complications from that surgery and is not allowing her to participate in any physical activity. She often has bloating, abdominal pain and cramping and incomplete evacuation with severe constipation. This has been going on since she was a kid. ROS Const Constitutional: No fatigue, fever(s) or weight change ENT ENT: No difficulty swallowing Gastro GI: No abdominal pain, belching, bloating, change in bowel habits, change in stool character, coffee ground emesis, constipation, cramping, diarrhea, heartburn, difficulty swallowing, feeling full early, excessive flatus, incontinent of stools, Vomiting blood/hematemesis, Blood in stool, loose stools, Black,tarry stools, nausea/dyspepsia, pain with swallowing, vomiting or other Musc Musculoskeletal: No joint pain Skin Skin: No yellowing of the eye or itchy eyes Psych Psychiatric: No anxiety and No depression Endo Endocrine: No fatigue or weight change Aller/Imm Allergy/Immunologic: No itchy eyes Brandt/Lymp Hematologic/Lymphatic: No easy bleeding or easy bruising Exam Const General: cooperative, healthy appearing, comfortable, no acute distress, well developed, well groomed and acute distress Nutritional Appearance: well nourished Orientation: alert, awake and oriented x3 HENMT Head: normocephalic and atraumatic Eyes General: appearance normal, both eyes and all related structures Neck Neck: normal visual inspection Chest Chest palpation inspection: normal inspection of the chest Resp Effort Inspection: able to speak in complete sentences Cardio Rate: regular rate Rhythm: regular rhythm GI Inspection: normal to inspection Skin Other: Lymphedema on the right side of her body Assessment and Plan Assessment and Plan (1) Bowel obstruction due to retraction of stoma: Status: Acute (2) Bowel obstruction: Status: Acute Plan: A spina bifida patient with neurogenic bowel refers to someone who has a condition where their bowel movements are significantly impacted due to nerve damage caused by their spina bifida, leading to issues like constipation, fecal incontinence, and irregular bowel motility. Nerve damage is a big issue when dealing with a spina bifida patient because the spinal cord lesion in spina bifida disrupts the nerves that control bowel function, causing impaired sensation in the rectum and abnormal muscle contractions in the colon, leading to difficulty with stool evacuation. Therefore she has been dealing with chronic constipation, fecal incontinence, abdominal discomfort, bloating, and difficulty recognizing the urge to defecate.??? Her previous surgery has been somewhat successful to help with her chronic constipation. I think she would benefit from a sits marker test to evaluate her lower GI tract motility. I think she would also benefit from an MR enterography to evaluate her small bowel for any abnormalities such as strictures, ulcers, lesions or any thing that would inhibit GI motility. Lastly I think she would benefit from biochemical workup and functional studies of her stomach to see if there is any problem with gastric emptying. Current management strategies: * Dietary modifications:???High fiber diet, adequate hydration, regular meal times??? * Bowel regime (more content not included)... Normal [facility] IgA [Mass/Vol]Ordered By: Ra gee Juárez on 06-17-2024 Immunoglobulin A 218 mg/dL 87-352 [facility] IgEOrdered By: Colton pressley on 06-17-2024 Immunoglobulin E 19 IU/mL 6-495 [facility] IgG [Mass/Vol]Ordered By: Ra gee Juárez on 06-17-2024 Immunoglobulin G Not Reportable [facility] Immunoglobulin G Total 963 mg/dL 586-1602 [facility] IgG subclass 1 (S) [Mass/Vol ]Ordered By: Colton Juárez on 06-17-2024 Immunoglobulin G1 519 mg/dL 248-810 [facility] IgG subclass 2 (S) [Mass/Vol ]Ordered By: Colton Juárez on 06-17-2024 Immunoglobulin G2 266 mg/dL 130-555 [facility] IgG subclass 3 (S) [Mass/Vol ]Ordered By: Colton Juárez on 06-17-2024 Immunoglobulin G3 45 mg/dL 15-102 [facility] Immunoglobulin G4 measuremen tOrdered By: Colton Juárez on 06-17-2024 Immunoglobulin G4 35 mg/dL 2-96 [facility] Immunoglobulin M measurement Ordered By: Colton Juárez on 06-17-2024 Immunoglobulin M 153 mg/dL 26-217 [facility] Interpretation IEP [Interp]O rdered By: Colton Juárez on 06-17-2024 Immunofixation Screen Comment . [facility] Comment on above: No monoclonality det ected. Марина-1 antibody assayOrdered B y: oClton Juárez on 06-17-2024 МАРИНА-1 Antibody <0.2 AI 0.0-0.9 [facility] LDHon 06-17-2024 LDH 207 U/L Normal 84-246 [facility] Comment on above: Order Comment: 1 Performed By: #### L 3100.6900, L3200.0500, L3200.1100, L3300.1200, L3410.2400, L101.9900, L501.6710, L504.2610, L3100.5440, L5500.0550, L2100.0000, L3100.3425 #### [facility] [address] [place], [address] Laboratory comment Escobar (Repo rt)Ordered By: Colton Juárez on 06-17-2024 IBD Serology Comment Comment . [facility] Comment on above: Pattern is not sugge stive of Inflammatory Bowel Disease Lactate dehydrogenase (LDH) measurementOrdered By: Colton Juárez on 06-17-2024 LDH [Catalytic activity/Vol] 207 U/L 84-246 [facility] Laminaribioside IgG IA QnOrd ered By: Colton Juárez on 06-17-2024 Laminaribioside Carbohyd (ALCA) IgG 5 units 0-60 [facility] Comment on above: Negative:<55 Equivoc al: 55-60 Positive: >60 Mannobioside IgG IA QnOrdere d By: Colton Juárez on 06-17-2024 Mannobioside Carbohydrat (AMCA) IgG 16 units 0-100 [facility] Comment on above: Negative: <90 Equivo kari: 90-100 Positive: >100 This test was developed and its performance characteristics determined by [employer]. It has not been cleared or approved by the Food and Drug Administration. The FDA has determined that such clearance or approval is not necessary. Neutrophil cytoplasmic Ab.cl assic Qn (S)Ordered By: Colton Juárez on 06-17-2024 Cytoplasmic ANCA (c-ANCA) Antibody <1:20 titer Neg:<1:20 [facility] Neutrophil cytoplasmic Ab.pe rinuclear IF (S) [Titer]Ordered By: Colton Juárez on 06-17-2024 Perinuclear ANCA (p-ANCA) Antibody <1:20 titer Neg:<1:20 [facility] Comment on above: The presence of posi tive fluorescence exhibiting P-ANCA orC- ANCA patterns alone is not specific for the diagnosis ofWegener's Granulomatosis (WG) or microscopic polyangiitis.Decisions about treatment should not be based solely onANCA IFA results. The International ANCA Group Consensusrecommends follow up testing of positive sera with both DE-3 and MPO-ANCA enzyme immunoassays. As many as 5% serumsamples are positive only by EIA. Ref. AM J Clin Jodrwh5553;111:507-513. Peanut IgE Qn (S)Ordered By: Colton Juárez on 06-17-2024 Peanut Allergen (RAST) <0.10 kU/L Class 0 [facility] Pork IgE Qn (S)Ordered By: Miquel Juárez on 06-17-2024 Pork Allergen (RAST) <0.10 kU/L Class 0 [facility] Protein Fractions Immunofixa tion Escobar [Interp]Ordered By: Colton Juárez on 06-17-2024 M-Molina (OSCAR) Not Observed g/dL Not Observed [facility] SOCK KNITTER abOrdered By: Colton Ortiz iend on 06-17-2024 SOCK KNITTER Antibody <0.2 AI 0.0-0.9 [facility] SCL-70 extractable nuclear A b Qn (S)Ordered By: Colton Juárez on 06-17-2024 Scl-70 (Scleroderma) Antibody <0.2 AI 0.0-0.9 [facility] SS-A IgG antibody assayOrder ed By: Colton Juárez on 06-17-2024 SS-A/Ro IgG Antibody < 0.2 AI 0.0-0.9 [facility] SS-B IgG antibody assayOrder ed By: Colton Juárez on 06-17-2024 SS-B/La IgG Antibody < 0.2 AI 0.0-0.9 [facility] [place] IgE Qn (S)Ordered By: Colton Juárez on 06-17-2024 [place] Allergen IgE Antibody <0.10 kU/L Class 0 [facility] Serum albumin/globulin ratio Ordered By: Colton Juárez on 06-17-2024 Albumin/Globulin (OSCAR) 1.1 0.7-1.7 [facility] Serum globulin measurement ( mass/volume)Ordered By: Colton Juárez on 06-17-2024 Globulin (S) [Mass/Vol] 3.3 g/dL 2.2-3.9 [facility] Serum mussel specific IgE an tibody assayOrdered By: Colton Juárez on 06-17-2024 Mussel Allergen IgE Antibody <0.10 kU/L Class 0 [facility] Serum or plasma angiotensin converting enzyme measurement (enzymatic activity/volume)Ordered By: Colton Juárez on 06-17-2024 Angiotensin converting enzyme [Catalytic activity/Vol] 34 U/L 14-82 [facility] Comment on above: Performed at: [facility] [facility] [address] [id number] Director: Zeb Levine PhD, Phone: [phone] at: - [facility] [id number] Director: Anna Henley MD, Phone: [phone] Serum or plasma protein aldair urement (mass/volume)Ordered By: Colton Juárez on 06-17-2024 Protein [Mass/Vol] 6.6 g/dL 6.0-8.5 [facility] Serum shrimp specific IgE an tibody assayOrdered By: Colton Juárez on 06-17-2024 Shrimp Allergen <0.10 kU/L Class 0 [facility] Service comment (Unsp spec) [Interp]Ordered By: Colton Juárez on 06-17-2024 RAST Comment Comment . [facility] Comment on above: Levels of Specific I gE Class Description of Class ----- < 0.10 0 Negative 0.10 - 0.31 0/I Equivocal/Low 0.32 - 0.55 I Low 0.56 - 1.40 II Moderate 1.41 - 3.90 III High 3.91 - 19.00 IV Very High 19.01 - 100.00 V Very High >100.00 Very High [place] antibody assayOrdered By: Colton Juárez on 06-17-2024 SM Antibody <0.2 AI 0.0-0.9 [facility] Soybean IgE Qn (S)Ordered By : Colton Juárez on 06-17-2024 Soybean Allergen (RAST) <0.10 kU/L Class 0 [facility] Tuna IgE Qn (S)Ordered By: Miquel Juárez on 06-17-2024 Tuna Allergen (RAST) <0.10 kU/L Class 0 [facility] Wheat IgE Qn (S)Ordered By: Colton Juárez on 06-17-2024 Wheat Allergen (RAST) <0.10 kU/L Class 0 [facility] Whole Egg IgE Qn (S)Ordered By: Colton Juárez on 06-17-2024 Egg Whole Allergen <0.10 kU/L Class 0 [facility] Comment on above: Performed at: [address] [id number] Director: Zeb Levine PhD, Phone: [phone] at: [address] [id number] Director: Anna Henley MD, Phone: [phone] tTG IgA Qn (S)Ordered By: Ra gee Juárez on 06-17-2024 Tissue Transglutaminase IgA Ab <2 U/mL 0-3 [facility] Comment on above: Negative 0 - 3 Weak Positive 4 - 10 Positive >10 Tissue Transglutaminase (tTG) has been identified as the endomysial antigen. Studies have demonstr- ated that endomysial IgA antibodies have over 99% specificity for gluten sensitive enteropathy. RENEAOVon 06-12-2024 CNOV Office Visit (UCWSTR ) -------- MADHURI PAULSON ([id number]) 2000 F CHT Date Time Provider Department 06/12/24 6:00 PM EARLINE TAY [facility] During your visit today, we recorded the following information about you: Temperature Pulse Respiration Blood pressure 98.5 degrees 95/minute 21/minute 122/84 Weight 90.8 kg Earline Tay MD 06/12/2024 7:34 PM Signed Patient presents with: Cough: Chest congestion, sob x 2.5 weeks HPI: Cough and shortness of breath for almost 3 weeks. Diagnosed clinically with lower respiratory tract here 05/29/24 and treated with doxycyline and inhaler. She had prednisone taper added at primary care 05/31/24. Her fiance tested positive for COVID after that visit and she had a positive home COVID test then too. Her URI symptoms and fever resolved but her chest feels like there is a pile of bricks on it still. Positive symptoms: Cough, Shortness of breath, Wheezing, Chest tightness, Negative symptoms: Sore throat, Sinus pressure, Nasal Congestion, Rhinorrhea, Fever, Headache, OTC: finished doxycycline and prednisone. Has albuterol and tessalon. Denies history of asthma, reactive airway disease, or pneumonia. PAST MEDICAL HISTORY Diagnosis Date Acute pain of right shoulder 01/21/2019 Chiari malformation type I (HCC) Lymphedema Menarche 09/2011 PMH - PAST MEDICAL HISTORY OF spina bifida PMH - PAST MEDICAL HISTORY OF 01/07/2004 color vision-normal PMH - PAST MEDICAL HISTORY OF bilateral club feet PMH - PAST MEDICAL HISTORY OF broken leg in 10/09 MEDICATIONS: Current Outpatient Medications Medication Sig albuterol HFA (PROVENTIL HFA, VENTOLIN HFA) 90 mcg/actuation inhaler Inhale 2 Puffs as instructed every 6 hours as needed for wheezing/shortness of breath. acetaminophen (TYLENOL) 500 mg tablet 2 tablets by ORAL/FEEDING TUBE route every 8 hours as needed for pain. Catheter (FEMALE CATHETER) 14 Fr misc 14 Chilean, 16 inch female straight tip intermittent catheter, to use q6 hrs prn urinary retention B.animalis,bifid,infanti s,long (PROBIOTIC 4X ORAL) Take 1 capsule by mouth once daily. polyethylene glycol 3350 (MIRALAX) 17 gram/dose powder One quarter capful added to 800 cc of water and then flushed through the Banda stoma benzonatate (TESSALON PERLE) 100 mg capsule Take 1 capsule by mouth three times a day as needed for cough. (Patient not taking: Reported on 06/12/2024) No current facility-administered medications for this visit. ALLERGIES: ALLERGIES Allergen Reactions Banana Unknown Per diagnosis Latex Unknown Per diagnosis VITALS: BP 122/84 Pulse 95 Temp 36.9 ?C (98.5 ?F) Resp 21 Wt 90.8 kg (200 lb 2.8 oz) LMP 05/15/2024 (Exact Date) SpO2 97% BMI 34.36 kg/m? Pulse Ox 99% with ambulation. PHYSICAL EXAM: GEN: Pleasant, in no acute distress. HEENT: PERRL, EOMI, conjunctiva clear Ears: canals clear. TMs without erythema, bulge, or effusion Sinuses: non-tender frontal sinus, non-tender maxillary sinuses Throat: moist mucous membranes, no erythema, no exudate Neck: supple, no thyromegaly, no lymphadenopathy HEART: regular rate and rhythm, no murmurs LUNGS: clear to auscultation, no wheezes or crackles, no increased WOB ASSESSMENT/PLAN: 1. SOB (shortness of breath) - ICD9: 786.05, ICD10: R06.02 (primary diagnosis) 2. Acute COVID-19 - ICD9: 079.89, ICD10: U07.1 - XR CHEST 2V FRONTAL/LAT IMPRESSION: No acute radiographic abnormality. Persistent dyspnea and chest pressure following COVID. No current evidence for pneumonia. Schedule follow up with primary care or pulmonology. Follow up in the ER with worsening cough, worsening shortness of breath, increasing chest pain, dizziness, palpitations, or late onset fever. Earline Tay MD Allergies As of Date: 06/12/2024 Noted Allergy Reaction BANANA 10/05/2010 16 - Unknown Comments: Per diagnosis LATEX 10/18/2002 16 - Unknown Comments: Per diagnosis Date Reviewed: 06/12/2024 Reviewed by: Gayle Norman MA - Fully Assessed Reason for Visit: Cough [28] Cmt: Chest congestion, sob x 2.5 weeks Primary Visit Diagnosis:SOB (shortness of breath) [R06.02] Other Visit Diagnosis:Acute COVID-19 [U07.1] Order(s):XR CHEST 2V FRONTAL/LAT [[id number]] Order #: [id number] FUTURE Prescriptions as of 06/12/2024 - benzonatate (TESSALON PERLE) 100 mg capsule Take 1 capsule by mouth three times a day as needed for cough. - albuterol HFA (PROVENTIL HFA, VENTOLIN HFA) 90 mcg/actuation inhaler Inhale 2 Puffs as instructed every 6 hours as needed for wheezing/shortness of breath. - acetaminophen (TYLENOL) 500 mg tablet 2 tablets by ORAL/FEEDING TUBE route every 8 hours as needed for pain. - Catheter (FEMALE CATHETER) 14 Fr misc 14 Chilean, 16 inch female straight tip intermittent catheter, to use q6 hrs prn urinary retention - B.animalis,bifid,infanti s,long (PROBIOTIC 4X (more content not included)... Normal [facility] XR CHEST 2V FRONTAL/LATon XR CHEST 2V FRONTAL/LAT * * *Final Report* * * DATE OF EXAM: Jun 12 2024 6:58PM WOX [id number] - XR CHEST 2V FRONTAL/LAT / PROCEDURE REASON: multiple diagnoses * * * * Physician Interpretation * * * * EXAMINATION: CHEST RADIOGRAPH (2 VIEW FRONTAL and LATERAL) CLINICAL HISTORY: SOB (shortness of breath) Acute COVID-19 MQ: XC2_6 EXAM DATE/TIME: 06/12/2024 6:58 PM COMPARISON: Chest x-ray on 09/27/2019 RESULT: Lines, tubes, and devices: None. Lungs and pleura: No consolidation. No lung mass. No pleural effusion. No pneumothorax. Cardiomediastinal silhouette: Normal cardiomediastinal silhouette. Bones and soft tissues: Unremarkable. IMPRESSION: No acute radiographic abnormality. Bilingual Case Manager: ISAAK Transcribe Date/Time: Jun 12 2024 6:59P Dictated by : LJ COCHRAN MD This examination was interpreted and the report reviewed and electronically signed by: LJ COCHRAN MD on Jun 12 2024 7:00PM EST [id number] Normal [facility] CNOVon 06-04-2024 CNOV Office Visit (NSCAMN ) -------- PAULSONMADHURI JOHNSON ([id number]) 2000 F CHT Date Time Provider Department 06/04/24 10:15 AM [facility]LECIA [facility] During your visit today, we recorded the following information about you: Temperature Pulse Respiration Blood pressure 98.2 degrees 113/minute 18/minute 131/79 Weight 89.8 kg Ashlyn Sharif MA 06/04/2024 10:22 AM Signed Additional intake questions: Has the patient had fever, nausea, vomiting, diarrhea, constipation, fatigue for > 1 week? No Does the patient have a decreased appetite? No Does patient want to see a Hand Meat Salter? No (yes to any of above refer patient to schedulers for dietitian appointment) ) Does patient have any new or increased numbness or tingling of extremities? No Is patient interested in fertility information? No Does patient need any prescription refills? No Does patient have an advanced directive in place? No, Patient referred to [facility] Electronically Signed By: MARILY Zarate Susan J, PA-C 06/04/2024 10:59 AM Signed This note was created using [employer]Spot[employer]. Subjective Madhuri Paulson is a 23 year old female for follow up after chiari decompression on 12/15/23. Pmhx of spina bifida, lymphedema on the R h/o tonsillectomy, banda stoma, knee surgeries, foot surgeries, neurogenic bowel and bladder. She is s/p detethering at . Rarely has tingling in the hands, aguero's are happening randomly. Usually after doing a lot of work, looking up and down a lot. The nausea is random when it happens and this has gotten better. If she gets a aguero it takes a while to get better. She had messaged after having neck pain x 1 week. She had been helping her grandmother hang lights and had been doing a lot of repetitive neck flexion and extension. This took about a week to recover. Review of Systems Gastrointestinal: Positive for nausea. Negative for vomiting. Neurological: Positive for dizziness and headaches. Objective BP 131/79 Pulse 113 Temp 36.8 ?C (98.2 ?F) (Oral) Resp 18 Wt 89.8 kg (197 lb 15.6 oz) LMP 05/15/2024 (Exact Date) SpO2 98% BMI 33.98 kg/m? Physical Exam Constitutional: Appearance: Normal appearance. HENT: Head: Normocephalic and atraumatic. Eyes: Extraocular Movements: Extraocular movements intact. Conjunctiva/sclera: Conjunctivae normal. Pulmonary: Effort: Pulmonary effort is normal. No respiratory distress. Skin: General: Skin is warm and dry. Neurological: General: No focal deficit present. Mental Status: She is alert and oriented to person, place, and time. GCS: GCS eye subscore is 4. GCS verbal subscore is 5. GCS motor subscore is 6. Cranial Nerves: No dysarthria or facial asymmetry. Motor: No weakness or pronator drift. Coordination: Coordination normal. Ewvuet-Aqpu-Upxfua Test normal. Gait: Gait abnormal. Comments: Spina bifida gait Psychiatric: Mood and Affect: Mood normal. Behavior: Behavior normal. Assessment and Plan S/p chiari decompression on 12/15/23 H/o spina bifida with detethering at No shunt Ambulates, uses wheelchair for distances +neurogenic bowel and bladder Overall doing well after chiari Improvement in tingling of hands, aguero's Some neck pain with frequent extension and flexion MRI cervical completed. Shows persistent pseudomeningocele Reviewed with Dr. Story He reviewed and felt that it looked OK and to give it more time. DW pt that since she is doing so well now, we would recommend an MRI in one year. If symptoms worsen, we can move MRI. She understands and agrees. I spent a total of 20 minutes on the date of the service which included preparing to see the patient, srwc-ue-aier patient care, completing clinical documentation, obtaining and/or reviewing separately obtained history, performing a medically appropriate examination, counseling and educating the patient/family/caregiver , ordering medications, tests, or procedures, communicating with other HCPs (not separately reported), independently interpreting results (not separately reported), communicating results to the patient/family/caregiver , and care coordination (not separately reported). . Allergies As of Date: 06/04/2024 Noted Allergy Reaction BANANA 10/05/2010 16 - Unknown Comments: Per diagnosis LATEX 10/18/2002 16 - Unknown Comments: Per diagnosis Date Reviewed: 06/04/2024 Reviewed by: Ashlyn Sharif MA - Fully Assessed Reason for Visit: Established Patient [175] Primary Visit Diagnosis:Chiari I malformation (HCC) [G93.5] Order(s):MRI CERVICAL SPINE WO IVCON [[id number]] Order #: [id number] FUTURE Prescriptions as of 06/04/2024 - predniSONE (DELTASONE) 10 mg tablet Take 4 tabs daily for 3 days, then 2 tabs daily for 3 days, then 1 tab daily for 3 days with food. - doxycycline (VIBRA-TABS) 100 mg tablet Take 1 tablet by sushant (more content not included)... Normal [facility] CNOVon 05-31-2024 CNOV Office Visit (FAMPWS ) -------- MADHURI PAULSON ([id number]) 2000 F T Date Time Provider Department 05/31/24 1:00 PM CAITLIN CURTIS During your visit today, we recorded the following information about you: Temperature Pulse Respiration Blood pressure 98.4 degrees 104/minute 16/minute 104/64 Weight 86.2 kg Caitlin Curtis APRN.FANNY 05/31/2024 1:24 PM Signed Chief Complaint Patient presents with: pneumonia, re evaluate HPI Madhuri Paulson is a 23 year old female who presents here today for Above Complaints. Madhuri is an established patient of Dr. Paco DO . Concerns today.. Per [facility]: I went to urgent care Monday night with a bad cough, wheezing, and shortness of breath. I was told I have pneumonia and was put on antibiotics and provided an inhaler. As of this morning I?m not seeing much improvement. Is there anyway I could get a steroid called in if that is something you think could help? Thank you so much. In office today, pt c/o ... Pt reports ongoing chest pressure, congestion, and severe cough. Reports SOB with little exertion. Has taken antibiotic x 2 days and inhaler every 6 hours without any relief. Asking about prednisone. No chest x-ray d/t x-ray machine was down on Monday. Also asking about extending antibiotic as no improvement so far and mother had similar symptoms and dx of pneumonia a few weeks ago and needed extended antibiotic regimen to fight it off. No recent known fevers but does report chills and night sweats through the night but has not checked with thermometer. No other concerns or complaints. Past medical history, appointments, medications, allergies reviewed. Previous Medical History PAST MEDICAL HISTORY Diagnosis Date Acute pain of right shoulder 01/21/2019 Chiari malformation type I (HCC) Lymphedema Menarche 09/2011 PMH - PAST MEDICAL HISTORY OF spina bifida PMH - PAST MEDICAL HISTORY OF 01/07/2004 color vision-normal PMH - PAST MEDICAL HISTORY OF bilateral club feet PMH - PAST MEDICAL HISTORY OF broken leg in 10/09 Previous Surgical History PAST SURGICAL HISTORY Procedure Laterality Date AFP, OPEN SPINA BIFIDA ([facility]) Spina Bifida surgery during infancy APPENDICONEOVESICOSTOMY 06/20/2016 APPENDICONEOVESICOSTOMY 12/2016 COLONOSCOPY FLX DX W/COLLJ SPEC WHEN PFRMD 10/24/2017 Colonoscopy KNEE RIGHT OP SURGERY 10/2012 right knee PAST SURGICAL HISTORY OF Bilateral Foot reconstruction x 4-5 times PAST SURGICAL HISTORY OF laser surgery on birthmark PAST SURGICAL HISTORY OF 10/2010 right knee surgery TONSILLECTOMY AND ADENOIDECTOMY Family History FAMILY HISTORY Problem Relation Age of Onset Uterine Cancer Mother Ovarian cancer Mother Anesthesia Problems Maternal Uncle Patient's mother states her brother coded during a procedure as a baby. Not actually diagnosed with anything specific and did not undergo further anesthesia as an adult. Hypertension Maternal Grandmother Breast Cancer Maternal Grandmother Heart Maternal Grandfather Renal Cell Cancer Maternal Grandfather Thyroid Cancer Maternal Grandfather Hypertension Paternal Grandmother Hypertension Paternal Grandfather Heart Paternal Grandfather Patient Allergies ALLERGIES Allergen Reactions Banana Unknown Per diagnosis Latex Unknown Per diagnosis Current Medications Current Outpatient Medications on File Prior to Visit Medication Sig doxycycline (VIBRA-TABS) 100 mg tablet Take 1 tablet by mouth two times a day for 5 days. albuterol HFA (PROVENTIL HFA, VENTOLIN HFA) 90 mcg/actuation inhaler Inhale 2 Puffs as instructed every 6 hours as needed for wheezing/shortness of breath. acetaminophen (TYLENOL) 500 mg tablet 2 tablets by ORAL/FEEDING TUBE route every 8 hours as needed for pain. Catheter (FEMALE CATHETER) 14 Fr misc 14 Chilean, 16 inch female straight tip intermittent catheter, to use q6 hrs prn urinary retention B.animalis,bifid,infanti s,long (PROBIOTIC 4X ORAL) Take 1 capsule by mouth once daily. polyethylene glycol 3350 (MIRALAX) 17 gram/dose powder One quarter capful added to 800 cc of water and then flushed through the Banda stoma No current facility-administered medications on file prior to visit. Social History Social History Tobacco Use Smoking status: Never Smokeless tobacco: Never Tobacco comments: no smokers in home Vaping Use Vaping status: Never Used Substance Use Topics Alcohol use: Yes Comment: Not weekly Drug use: No REVIEW OF SYSTEMS: as above Reviewed relevant PMHx, PSHx, Social Hx, current medications and allergies. Review of Symptoms REVIEW OF SYSTEMS See HPI. EXAM: BP 104/64 (BP Site: Left Arm, BP Position: Sitting, BP Cuff Size: Large Adult) Pulse 104 Temp 36.9 ?C (98.4 ?F) Resp 16 Wt 86.2 kg (190 lb 0.6 oz) LMP 05/15/2024 (Exact Date) (more content not included)... Normal [facility] CNOVon 05-29-2024 CNOV Office Visit (UCWSTR ) -------- MADHURI PAULSON ([id number]) 2000 F CHT Date Time Provider Department 05/29/24 5:45 PM GARFIELD MACK [facility] During your visit today, we recorded the following information about you: Temperature Pulse Respiration Blood pressure 98.7 degrees 98/minute 22/minute 115/79 Weight Last Period 88 kg 05/15/24 Garfield Mack APRN.SIGNAL INSPECTOR 05/29/2024 6:10 PM Signed Subjective HPI Nontoxic-appearing female presents urgent care chief plaint cough wheezing chest congestion. Duration of symptoms 5 days. Associate symptoms listed above. States symptoms been staying the same or worsening. 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 OTC medications none recently. Most bothersome symptom today is cough. Is worse at night. Denies any fevers chest pain or hemoptysis. Denies chance of . Is not breast-feeding. Past medical history prescription medications allergies reviewed. .Patient presents with: Cough: Dry cough, SOB, wheezes, chest tightness, headache, increases at HS x 5 days PAST MEDICAL HISTORY Diagnosis Date Acute pain of right shoulder 01/21/2019 Chiari malformation type I (HCC) Lymphedema Menarche 09/2011 PMH - PAST MEDICAL HISTORY OF spina bifida PMH - PAST MEDICAL HISTORY OF 01/07/2004 color vision-normal PMH - PAST MEDICAL HISTORY OF bilateral club feet PMH - PAST MEDICAL HISTORY OF broken leg in 10/09 PAST SURGICAL HISTORY Procedure Laterality Date AFP, OPEN SPINA BIFIDA ([facility]) Spina Bifida surgery during infancy APPENDICONEOVESICOSTOMY 06/20/2016 APPENDICONEOVESICOSTOMY 12/2016 COLONOSCOPY FLX DX W/COLLJ SPEC WHEN PFRMD 10/24/2017 Colonoscopy KNEE RIGHT OP SURGERY 10/2012 right knee PAST SURGICAL HISTORY OF Bilateral Foot reconstruction x 4-5 times PAST SURGICAL HISTORY OF laser surgery on birthmark PAST SURGICAL HISTORY OF 10/2010 right knee surgery TONSILLECTOMY AND ADENOIDECTOMY ALLERGIES Banana and Latex MEDICATIONS acetaminophen (TYLENOL) 500 mg tablet 2 tablets by ORAL/FEEDING TUBE route every 8 hours as needed for pain. Catheter (FEMALE CATHETER) 14 Fr misc 14 Chilean, 16 inch female straight tip intermittent catheter, to use q6 hrs prn urinary retention B.animalis,bifid,infanti s,long (PROBIOTIC 4X ORAL) Take 1 capsule by mouth once daily. polyethylene glycol 3350 (MIRALAX) 17 gram/dose powder One quarter capful added to 800 cc of water and then flushed through the Banda stoma FAMILY HISTORY Problem Relation Age of Onset Uterine Cancer Mother Ovarian cancer Mother Anesthesia Problems Maternal Uncle Patient's mother states her brother coded during a procedure as a baby. Not actually diagnosed with anything specific and did not undergo further anesthesia as an adult. Hypertension Maternal Grandmother Breast Cancer Maternal Grandmother Heart Maternal Grandfather Renal Cell Cancer Maternal Grandfather Thyroid Cancer Maternal Grandfather Hypertension Paternal Grandmother Hypertension Paternal Grandfather Heart Paternal Grandfather Social History Tobacco Use Smoking status: Never Smokeless tobacco: Never Tobacco comments: no smokers in home Vaping Use Vaping status: Never Used Substance Use Topics Alcohol use: Yes Comment: Not weekly Drug use: No BP 115/79 Pulse 98 Temp 37.1 ?C (98.7 ?F) Resp 22 Wt 88 kg (194 lb 0.1 oz) LMP 05/15/2024 (Exact Date) SpO2 97% BMI 33.30 kg/m? Review of Systems Constitutional: Positive for malaise/fatigue. Negative for chills and fever. HENT: Positive for congestion. Negative for ear discharge, ear pain, sinus pain and sore throat. Eyes: Negative for blurred vision, pain, discharge and redness. Respiratory: Positive for cough, sputum production and wheezing. Negative for hemoptysis, shortness of breath and stridor. Cardiovascular: Negative for chest pain. Gastrointestinal: Negative for abdominal pain, diarrhea, nausea and vomiting. Musculoskeletal: Positive for myalgias. Skin: Negative for itching and rash. Neurological: Negative for dizziness and headaches. Objective Physical Exam Constitutional: General: She is not in acute distress. Appearance: She is not diaphoretic. HENT: Head: Normocephalic. Jaw: No trismus, tenderness, swelling or pain on movement. Nose: Congestion present. Mouth/Throat: Mouth: Mucous membranes are moist. Pharynx: Oropharynx is clear. Uvula midline. No pharyngeal swelling, oropharyngeal exudate, posterior oropharyngeal erythema or uvula swelling. Eyes: Conjunctiva/sclera: Conjunctivae normal. Pupils: Pupils are equal, round, and reactive to light. Cardiovascular: Rate and Rhythm: Normal rate and regular rhythm. Heart sounds: Normal heart sounds. Pulmonary: Effort: Pulmonary effort is normal. No tachypnea, accessory muscle usage or respiratory distress. Breath sounds: No strid (more content not included)... Normal [facility] MR Cervical spine WO contras ton 05-06-2024 IMPRESSION: * In comparison to prior MRI cervical spine 12/04/2023, interval postsurgical changes from decompressive suboccipital craniectomy and C1 laminectomy for Chiari malformation. Postoperative minimal improvement of the CSF flow along the dorsal aspect of the foramen magnum to the obtained sagittal only CSF flow cine sequences. * CSF intensity fluid collection at the surgical site as detailed above concerning for pseudomeningocele versus seroma. Differential also includes abscess although thought to be less likely. Correlate clinically. * No cord signal abnormality. Mild degenerative changes at C6-C7. No high-grade spinal, foraminal stenosis. Anatomic Variant: None. Assume 7 cervical vertebrae with counting from the craniocervical junction. COMMUNICATION: Communicated with Dr. Story on 05/06/2024 11:29 AM via verbal communication. Bilingual Case Manager: ISAAK Transcribe Date/Time: May 06 2024 9:48A Dictated by : SERGIO SARAVIA MD This examination was interpreted and the report reviewed and electronically signed by: SERGIO SARAVIA MD on May 06 2024 7:20PM [facility] OF RADIOLOGY * * *Final Report* * * DATE OF EXAM: May 06 2024 9:13AM RAPHAEL [id number] - MRI CERVICAL SPINE WO IVCON / PROCEDURE REASON: Chiari I malformation (HCC) * * * * Physician Interpretation * * * * EXAMINATION: MRI CERVICAL SPINE WO IVCON CLINICAL HISTORY: Chiari I malformation (HCC) . Posterior decompression follow-up. TECHNIQUE: Routine cervical spine MR protocol without gadolinium. MQ: [id number] COMPARISON: None. RESULT: Counting reference: Craniocervical junction. Anatomic Variants: None. Localizer images: No additional findings. Alignment: Alignment is anatomic. Craniocervical junction: Postsurgical changes from interval suboccipital craniotomy, duraplasty, and arachnoidal dissection for Chiari decompression. CSF intensity fluid collection at the surgical site in the occipital region and upper neck in the midline measuring 4.5 x 2.8 x 3.4 cm and 4 x 2.4 x 4.2 cm, respectively in axial and craniocaudal dimensions. These 2 collections appears to be communicated (such as series 2 image 9). Postsurgical mild improvement of the CSF flow along the dorsal aspect of the foramen magnum to the obtained sagittal CSF flow study. No axial sequences were obtained on current study. Preserved CSF flow along the ventral aspect of the foramen magnum. Cord: The visualized cord is within normal limits of signal intensity and morphology. Bone marrow signal/fracture: No evidence of pathologic marrow infiltration. No evidence of prior fracture. Cervical soft tissues: Postsurgical changes at the decompressive craniectomy and C1 laminectomy site. Otherwise, the visualized paraspinal soft tissues are within normal limits. C2-C3: Canal and foramina are patent. C3-C4: Canal and foramina are patent. C4-C5: Canal and foramina are patent. C5-C6: Canal and foramina are patent. C6-C7: Small disc osteophyte complex without significant spinal canal or foraminal stenosis. C7-T1: Canal and foramina are patent. DIVISION OF RADIOLOGY Provider, [facility] - 05/06/2024 * * *Final Report* * * DATE OF EXAM: May 06 2024 9:13AM [facility] 0297 - MRI CERVICAL SPINE WO IVCON / PROCEDURE REASON: Chiari I malformation (HCC) * * * * Physician Interpretation * * * * EXAMINATION: MRI CERVICAL SPINE WO IVCON CLINICAL HISTORY: Chiari I malformation (HCC) . Posterior decompression follow-up. TECHNIQUE: Routine cervical spine MR protocol without gadolinium. MQ: [id number] COMPARISON: None. RESULT: Counting reference: Craniocervical junction. Anatomic Variants: None. Localizer images: No additional findings. Alignment: Alignment is anatomic. Craniocervical junction: Postsurgical changes from interval suboccipital craniotomy, duraplasty, and arachnoidal dissection for Chiari decompression. CSF intensity fluid collection at the surgical site in the occipital region and upper neck in the midline measuring 4.5 x 2.8 x 3.4 cm and 4 x 2.4 x 4.2 cm, respectively in axial and craniocaudal dimensions. These 2 collections appears to be communicated (such as series 2 image 9). Postsurgical mild improvement of the CSF flow along the dorsal aspect of the foramen magnum to the obtained sagittal CSF flow study. No axial sequences were obtained on current study. Preserved CSF flow along the ventral aspect of the foramen magnum. Cord: The visualized cord is within normal limits of signal intensity and morphology. Bone marrow signal/fracture: No evidence of pathologic marrow infiltration. No evidence of prior fracture. Cervical soft tissues: Postsurgical changes at the decompressive craniectomy and C1 laminectomy site. Otherwise, the visualized paraspinal soft tissues are within normal limits. C2-C3: Canal and foramina are patent. C3-C4: Canal and foramina are patent. C4-C5: Canal and foramina are patent. C5-C6: Canal and foramina are patent. C6-C7: Small disc osteophyte complex without significant spinal canal or foraminal stenosis. C7-T1: Canal and foramina are patent. IMPRESSION IMPRESSION: * In comparison to prior MRI cervical spine 12/04/2023, interval postsurgical changes from decompressive suboccipital craniectomy and C1 laminectomy for Chiari malformation. Postoperative minimal improvement of the CSF flow along the dorsal aspect of the foramen magnum to the obtained sagittal only CSF flow cine sequences. * CSF intensity fluid collection at the surgical site as detailed above concerning for pseudomeningocele versus seroma. Differential also includes abscess although thought to be less likely. Correlate clinically. * No cord signal abnormality. Mild degenerative changes at C6-C7. No high-grade spinal, foraminal stenosis. Anatomic Variant: None. Assume 7 cervical vertebrae with counting from the craniocervical junction. COMMUNICATION: Communicated with Dr. Story on 05/06/2024 11:29 AM via verbal communication. Bilingual Case Manager: [facility] Transcribe Date/Time: May 06 2024 9:48A Dictated by : SERGIO SARAVIA MD This examination was interpreted and the report reviewed and electronically signed by: SERGIO SARAVIA MD on May 06 2024 7:20PM EST [facility] Radiology Study observation (narrative) [facility] MR Cervical spine WO contras tOrdered By: [facility] Provider on 05-06-2024 [facility] MRI CERVICAL SPINE WO IVCONo n 05-06-2024 MRI CERVICAL SPINE WO IVCON * * *Final Report* * * DATE OF EXAM: May 06 2024 9:13AM [facility] 0297 - MRI CERVICAL SPINE WO IVCON / PROCEDURE REASON: Chiari I malformation (HCC) * * * * Physician Interpretation * * * * EXAMINATION: MRI CERVICAL SPINE WO IVCON CLINICAL HISTORY: Chiari I malformation (HCC) . Posterior decompression follow-up. TECHNIQUE: Routine cervical spine MR protocol without gadolinium. MQ: [id number] COMPARISON: None. RESULT: Counting reference: Craniocervical junction. Anatomic Variants: None. Localizer images: No additional findings. Alignment: Alignment is anatomic. Craniocervical junction: Postsurgical changes from interval suboccipital craniotomy, duraplasty, and arachnoidal dissection for Chiari decompression. CSF intensity fluid collection at the surgical site in the occipital region and upper neck in the midline measuring 4.5 x 2.8 x 3.4 cm and 4 x 2.4 x 4.2 cm, respectively in axial and craniocaudal dimensions. These 2 collections appears to be communicated (such as series 2 image 9). Postsurgical mild improvement of the CSF flow along the dorsal aspect of the foramen magnum to the obtained sagittal CSF flow study. No axial sequences were obtained on current study. Preserved CSF flow along the ventral aspect of the foramen magnum. Cord: The visualized cord is within normal limits of signal intensity and morphology. Bone marrow signal/fracture: No evidence of pathologic marrow infiltration. No evidence of prior fracture. Cervical soft tissues: Postsurgical changes at the decompressive craniectomy and C1 laminectomy site. Otherwise, the visualized paraspinal soft tissues are within normal limits. C2-C3: Canal and foramina are patent. C3-C4: Canal and foramina are patent. C4-C5: Canal and foramina are patent. C5-C6: Canal and foramina are patent. C6-C7: Small disc osteophyte complex without significant spinal canal or foraminal stenosis. C7-T1: Canal and foramina are patent. IMPRESSION: * In comparison to prior MRI cervical spine 12/04/2023, interval postsurgical changes from decompressive suboccipital craniectomy and C1 laminectomy for Chiari malformation. Postoperative minimal improvement of the CSF flow along the dorsal aspect of the foramen magnum to the obtained sagittal only CSF flow cine sequences. * CSF intensity fluid collection at the surgical site as detailed above concerning for pseudomeningocele versus seroma. Differential also includes abscess although thought to be less likely. Correlate clinically. * No cord signal abnormality. Mild degenerative changes at C6-C7. No high-grade spinal, foraminal stenosis. Anatomic Variant: None. Assume 7 cervical vertebrae with counting from the craniocervical junction. COMMUNICATION: Communicated with Dr. Story on 05/06/2024 11:29 AM via verbal communication. Bilingual Case Manager: ISAAK Transcribe Date/Time: May 06 2024 9:48A Dictated by : SERGIO SARAVIA MD This examination was interpreted and the report reviewed and electronically signed by: SERGIO SARAVIA MD on May 06 2024 7:20PM EST [id number] Normal [facility] Bacteria Ur Culton Bacteria identified Cx Nom (U) ORGANISM ID: 1 >=100,000 CFU/ml Escherichia coli ORGANISM ID: 1 (ESCHERICHIA COLI) ANTIBIOTIC INTERPRETATION ALVIN STATUS REFERENCE RANGE Ampicillin S 8 F Susceptible <=8 , Intermediate >8 , Resistant >16 Cefazolin S <=4 F Susceptible 0-16 , Intermediate <0 or >16 , Resistant >16 For uncomplicated urinary tract infections, cefazolin results can be used to predict susceptibility or resistance to cephalexin. Ceftriaxone S <=1 F Susceptible <=1 , Intermediate >1 , Resistant >=4 Cefepime S <=1 F Susceptible <=2 , Susceptible-Dose Dependent >2 , Resistant >=16 Ertapenem S <=0.5 F Susceptible <=0.5 , Intermediate >.5 , Resistant >1 Meropenem S <=0.25 F Susceptible <=1 , Intermediate >1 , Resistant >2 Ampicillin/Sulbact S 4 F Susceptible <=8 , Intermediate >8 , Resistant >16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 Tmoz43Yaqycmlf368Nobpwrs tl03Fodsfg1 ft 4.7 in2-20 Stature Wikqspgbod04 %Ngzrxe04 kg2-20 Weight Whetxgqehn64 %BMI Edjmwmlzma17.99BMI Cnscqvfpfc72 %BSA Calculated1.88 Physical ExamConstitutional - General appearance: Healthly appearing, well-developed, well-nourished (WDWN) child in no acute distress (NAD). Abdomen - Examination of Abdomen: Soft, non-tender, without masses. Psychiatric - General appearance - Alert: Normal. Mood and affect: Normal. Diagnoses/Problems Recurrent UTI (599.0) (N39.0) Neurogenic bladder (596.54) (N31.9) Added by Problem List Migration; 2013-01-20; Moved to [facility] May 31 2013 9:12PM OrdersRecurrent UTI Stop: Sulfamethoxazole-Trimeth oprim 800-160 MG Oral Tablet Rx By: Isaac Lara; Dispense: 30 Days ; #:15 Tablet; Refill: 5;For: Recurrent UTI; TRUNG = N; Sent To: [facility]; Last Updated By: Silvia Grajeda; 06/19/2018 3:40:21 PM Start: Cephalexin 500 MG Oral Capsule; Take 1 capsule twice daily Rx By: Isaac Lara; Dispense: 7 Days ; #:14 Capsule; Refill: 5;For: Recurrent UTI; TRUNG = N; Verified Transmission to [facility]; Last Updated By: Shannon [employer]Pulse [employer]; 06/19/2018 4:07:48 PMUnlinked Stop: Polyethylene Glycol 3350 Oral Powder Rx By: GRAHAM WHITEHEAD; Dispense: 30 Days ; #:527; Refill: 0; TRUNG = N; Record; Last Updated By: Silvia Grajeda; 06/19/2018 3:40:21 PM Patient Discussion/SummaryImpres esteban: Recurrent UTI with neurogenic bladderPlan: Discussed issues and options. Will give prescription for cephalexin which she can start next time she develops symptoms and check culture only if it fails to respond. Can then refill prescription to have available for next episode. Signatures Electronically signed by : Isaac Lara MD; Jun 19 2018 9:43PM EST (Author) Normal Touchworks FL FISTULA/SINUS TRACTon FL FISTULA/SINUS TRACT CLINICAL HISTORY: Rule out obstructionCOMPARISON: Abdominal radiographs 01/26/2017PROCEDURE COMMENTS: Low-dose fluoroscopy (2 frames per second) was used forevaluation of the colon.Fluoroscopy time: 0.9 minutesEstimated radiation dose: 4.3 mGyEstimated DAP: 1.12 Gy-qr5Vzvcfjjd: 150 mL Isovue 300 administered via Banda catheter.FINDINGS:The shuttle inspector radiograph shows bowel gas in a nonobstructive pattern. There is amoderate amount of stool in the colon. There is intrauterine device in thepelvis. Surgical sutures are present in the right hemiabdomen. Lumbosacralspinal dysraphism is noted.Contrast readily flows along catheter into the hepatic flexure. Contrast wasfollowed to the level of the splenic flexure/proximal descending colon. There is no evidence of contrast extravasation. The Banda does not appear to be kinkedr obstructed.IMPRESSION:No evidence of obstruction or contrast extravasation. Discussed with Dr. Singer at 11:55 AM with verbal confirmation.This report has been created using voice recognition software. It may containminor errors which are inherent in voice recognition technologySigned by: Dr. Flor Person at 08/23/2017 11:59 Normal [facility] Urinalysis,Automatedon 01-28 Erythrocytes (RBC) 0.45558 10*6/uL Normal 0.0-20.0 A [facility] Comment on above: Order Comment: Next straight cath Performed By: #### U FMIC ####[address] [phone] Mucous Small Normal [facility] Comment on above: Order Comment: Next straight cath Performed By: #### U FMIC ####[facility] [place]ilia [place]DU[place], [place] [phone] Urine, bacteria in sediment Many Normal [facility] Comment on above: Order Comment: Next straight cath Performed By: #### U FMIC ####[facility] F[place]ilia SanchezWivillaDU[place], [place] [phone] Urine, squamous cells in sediment 25 /uL High 0-20 [facility] Comment on above: Order Comment: Next straight cath Performed By: #### U FMIC ####[facility] [place], [place] [phone] WBC (Leukocytes) 1.067 10*3/uL High 0.0-20.0 [facility] Comment on above: Order Comment: Next straight cath Performed By: #### U FMIC ####[facility] [address] [place], [place] [phone] Urinalysis,Completeon 2016 Volume 12 ml Normal 12 [facility] Comment on above: Order Comment: Next straight cath Performed By: #### U ACOM ####[facility] [address] Sanchez[place], [place] [phone] Bilirubin,urine Negative Normal Negative [facility] Comment on above: Order Comment: Next straight cath Performed By: #### U ACOM ####[facility] [address] [place], [place] [phone] Hemoglobin mass conc (Bld) 1+ RBC's/uL Abnormal Negative [facility] Comment on above: Order Comment: Next straight cath Performed By: #### U ACOM ####[address] SanchezO[place], [place] [phone] Protein,Ur Negative Normal Neg.-Trace [facility] Comment on above: Order Comment: Next straight cath Performed By: #### U ACOM ####[facility] [address] [phone] Urine, character Cloudy Normal [facility] Comment on above: Order Comment: Next straight cath Performed By: #### U ACOM ####[facility] [address] [phone] Urine, color Yellow Normal [facility] Comment on above: Order Comment: Next straight cath Performed By: #### U ACOM ####[facility] [address] [phone] Urine, glucose presence Negative Normal Negative [facility] Comment on above: Order Comment: Next straight cath Performed By: #### U ACOM ####[facility] [address] [phone] Urine, ketones presence Negative Normal Negative [facility] Comment on above: Order Comment: Next straight cath Performed By: #### U ACOM ####[facility] [address] [phone] Urine, leukocyte esterase presence 3+ leuk/ul Abnormal Negative [facility] Comment on above: Order Comment: Next straight cath Performed By: #### U ACOM ####[facility] [address] [phone] Urine, nitrite presence Positive Normal Negative [facility] Comment on above: Order Comment: Next straight cath Performed By: #### U ACOM ####[facility] [address] [phone] Urine, pH 6.0 Normal 5.0-8.0 [facility] Comment on above: Order Comment: Next straight cath Performed By: #### U ACOM ####[facility] [address] [phone] Urine, specific gravity 1.008 Normal 1.005-1.030 [facility] Comment on above: Order Comment: Next straight cath Performed By: #### U ACOM ####[facility] [address] [phone] Urine, urobilinogen 4.0 mg/dl Abnormal Negative [facility] Comment on above: Order Comment: Next straight cath Performed By: #### U ACOM ####[facility] [address], [place] [phone] Urine Cultureon 01-28-2017 Urine culture, bacteria Next straight cathUrine Culture: Enterobacter cloacae Source: URNCT Collected: 01/28/17 14:10 Site: Received : 01/28/17 15:17Urine Culture FINAL 01/30/17 08:45 >100,000 CFU/ml Enterobacter cloacae Organism Ent. cloacae Antibiotic ALVIN INT Levofloxacin <=0.12 S Cefepime <=1 S Amikacin <=2 S Cefoxitin >=64 R Ceftazidime <=1 S Ceftriaxone <=1 S Cefazolin >=64 R Ciprofloxacin <=0.25 S Gentamicin <=1 S Meropenem <=0.25 S Nitrofurantoin 32 S Pip/Tazobactam <=4 S Tobramycin <=1 S Trimethoprim/Sulfa <=20 S S=Sensitive I=Intermediate R=Resistant ALVIN results are reported in ug/ml Normal [facility] Comment on above: Performed By: #### U JOHN ####[facility] [place], [place] [phone] ABDOMEN 2 TO 3 VIEWSon 01-26 ABDOMEN 2 TO 3 VIEWS CLINICAL HISTORY: evaluate distention.COMPARISON: 07/15/2016PROCEDURE COMMENTS: Two views of the abdomen.FINDINGS:There is a stoma catheter with the tip projected in the right upper quadrant.Surgical sutures are present in the right lower quadrant. Intrauterine deviceprojects in the pelvis. Bowel gas is present in a nonobstructive pattern withdiffuse gas distention of both small and large bowel. There is scatteredair-fluid levels on the upright image, predominantly in the right hemiabdomen.There is a small amount of stool in the colon.The visualized lung bases are clear. Lumbosacral spinal dysraphism is noted.IMPRESSION:Gaseous distention of small and large bowel, consistent with an ileus.This report has been created using voice recognition software. It may containminor errors which are inherent in voice recognition technologySigned by: Dr. Flor Person at 01/26/2017 12:25 Normal [facility] Surgical Pathology Teston Surgical Pathology Test SEE BELOW Normal [facility] Comment on above: Result Comment: RIANNA Estrada DIAGNOSIS: Appendicostomy - Segment of small bowel withfibrous serosal adhesion and focal foreign body giant cell reaction.SPECIMEN:BOWEL, SEGMENTAL RESECTION - tapered small bowelDATE OF SURGERY: 07/24/2017CLINICAL INFORMATION: Neurogenic bladder.GROSS DESCRIPTION: Received in formalin is a segment of small bowelthat measures 5.5 cm in length and ranges from 3 cm to 1.7 cm indiameter. The specimen is staple-sutured closed on both ends. Theserosal surface is pale nye and smooth. There is an attached amount ofmesenteric adipose that measures 1.5 cm in greatest dimension radially. The lumen of the bowel contains a small amount of soft brown fecalmaterial. The mucosal surface is pale nye with a normal foldedappearance. Bandage Maker sections are submitted in two cassettes.MICROSCOPIC EXAMINATION: Microscopic slides reviewed. DUNG AKERS MD 01/27/2017 Performed By: #### S UR ####[address] [phone] Basic Metabolic Panelon 01-01 Calcium 9.3 mg/dL Normal 7.6-11.0 [facility] Comment on above: Performed By: #### B MP ####[address] [phone] Chloride 102 mmol/L Normal 96-108 [facility] Comment on above: Performed By: #### B MP ####[address] [phone] CO2 23.7 mmol/L Normal 22.0-29.0 [facility] Comment on above: Performed By: #### B MP ####[address] [phone] Creatinine 0.67 mg/dL Normal 0.50-1.00 [facility] Comment on above: Result Comment: Juvenal ature 0.3-1.0 mg/dL Performed By: #### B MP ####[address] [phone] Glucose mass conc 96 mg/dL Normal 70-99 [facility] Comment on above: Result Comment: Vick nicholson for Diagnosis of Diabetes(Effective 12/06/10):Fasting specimen (no caloric intake for at least 8 hours). <100 mg/dl Normal 100-125 mg/dl Increased Risk for Diabetes >125 mg/dl Diagnostic for DiabetesRandom Glucose (any time of day without regard to last meal). >=200 mg/dl plus Classic Symptoms of Diabetes Performed By: #### B MP ####[address] [phone] Potassium molar conc 3.2 mmol/L Low 3.3-5.1 [facility] Comment on above: Performed By: #### B MP ####[address] [phone] Sodium 136 mmol/L Normal 133-145 [facility] Comment on above: Performed By: #### B MP ####[address] [phone] Urea nitrogen 13 mg/dL Normal 4-19 [facility] Comment on above: Performed By: #### B MP ####[address] [phone] Complete Blood Counton 01-22 Differential Complete Manual Normal [facility] Comment on above: Performed By: #### C BC ####[address] [phone] Erythrocyte distribution width Auto Ratio (RBC) 11.5 % Normal 0.0-14.4 [facility] Comment on above: Performed By: #### C BC ####[address] [phone] Erythrocytes (RBC) 4.14 10E12/L Normal 4.00-4.90 [facility] Comment on above: Performed By: #### C BC ####[address] [phone] Hematocrit (HCT) 39.7 % Normal 36.0-44.0 [facility] Comment on above: Performed By: #### C BC ####[address] [phone] Hemoglobin mass conc (Bld) 13.9 g/dL Normal 12.0-15.0 [facility] Comment on above: Performed By: #### C BC ####[address] [phone] MCH 33.7 pg Normal 26.0-34.0 [facility] Comment on above: Performed By: #### C BC ####[address] [phone] MCHC mass conc (RBC) 35.1 % Normal 31.0-37.0 [facility] Comment on above: Performed By: #### C BC ####[address] [phone] MCV 96.0 fL Normal 80.0-100.0 [facility] Comment on above: Performed By: #### C BC ####[address] [phone] Platelet mean volume (PMV) 7.8 fL Normal [facility] Comment on above: Result Comment: MPV is plateletrange and agedependent Performed By: #### C BC ####[address] [phone] Platelets 289 10*3/uL Normal 150-450 [facility] Comment on above: Performed By: #### C BC ####[address] [phone] WBC (Leukocytes) 14.7 10*3/uL High 4.5-11.0 [facility] Comment on above: Performed By: #### C BC ####[address], [place] [phone] HCG,Urineon 01-22-2017 HCG.beta subunit ( test) Ql (U) Negative Normal [facility] Comment on above: Result Comment: Nonp regnant females and males-Negative females-Positive Performed By: #### H CGUR ####[address] [phone] Manual Differentialon 2016 Basophils/100 WBC Auto (Bld) 1 % Normal 0-1 [facility] Comment on above: Performed By: #### S CAN ####[address] [phone] Cell Morphology Normal Normal [facility] Comment on above: Performed By: #### S CAN ####[address] [phone] Lymphocytes/100 leukocytes 10 % Low 24-44 [facility] Comment on above: Performed By: #### S CAN ####[address] [phone] Metamyelocytes 0 % Normal 0-0 [facility] [place] Comment on above: Performed By: #### S CAN ####[address] [phone] Metamyelocytes/100 leukocytes 0 % Normal 0-0 [facility] [place] Comment on above: Performed By: #### S CAN ####[address] [phone] Monocytes/100 leukocytes 6 % Normal 3-6 [facility] [place] Comment on above: Performed By: #### S CAN ####[address] [phone] Neutrophils 12.2 Normal [facility] [place] Comment on above: Performed By: #### S CAN ####[facility] [place] [place], [place] [phone] Neutrophils band/100 leukocytes 11 % Normal 5-11 [facility] [place] Comment on above: Performed By: #### S CAN ####[address] [phone] Promyelocytes 0 % Normal 0-0 [facility] [place] Comment on above: Performed By: #### S CAN ####[address] [phone] Segmented Neutrophils/100 leukocytes 72 % High 35-66 [facility] [place] Comment on above: Performed By: #### S CAN ####[address] [phone] WBC (Leukocytes) Slight Normal [facility] [place] Comment on above: Result Comment: Slig ht Toxic granulationOccasional # Vacuoles Performed By: #### S CAN ####[address] [phone] Vital Signs Date Time Vital Sign Value Performing Clinician Facility 01-30-2025 18:03-0400 Body mass index (BMI) [Ratio] 31.41 kg/m2 Tera Olivier APRN.CNP Work Phone: [facility] 01-30-2025 18:03-0400 Body temperature 97.9 [degF] Tera Olivier APRN.SIGNAL INSPECTOR Work Phone: [facility] 01-30-2025 18:03-0400 Body weight 83.01 kg Tera Olivier APRN.SIGNAL INSPECTOR Work Phone: [facility] 01-30-2025 18:03-0400 Diastolic blood pressure 86 mm[Hg] Tera Olivier APRN.SIGNAL INSPECTOR Work Phone: [facility] 01-30-2025 18:03-0400 Heart rate 101 /min Tera Olivier APRN.SIGNAL INSPECTOR Work Phone: [facility] 01-30-2025 18:03-0400 Respiratory rate 18 /min Tera Olivier RN CLINICAL.SIGNAL INSPECTOR Work Phone: [facility] 01-30-2025 18:03-0400 SaO2% (BldA) [Mass fraction] 98 % Tera Olivier RN CLINICAL.SIGNAL INSPECTOR Work Phone: [facility] 01-30-2025 18:03-0400 Systolic blood pressure 116 mm[Hg] Tera Olivier RN CLINICAL.SIGNAL INSPECTOR Work Phone: [facility] 12-28-2024 15:10-0400 Body mass index (BMI) [Ratio] 29.7 kg/m2 Aidan Bains Jr., RN CLINICAL.SIGNAL INSPECTOR Work Phone: [facility] 12-28-2024 15:10-0400 Body temperature 97.81 [degF] Aidan Bains Jr., RN CLINICAL.SIGNAL INSPECTOR Work Phone: [facility] 12-28-2024 15:10-0400 Body weight 78.47 kg Aidan Bains Jr., RN CLINICAL.SIGNAL INSPECTOR Work Phone: [facility] 12-28-2024 15:10-0400 Diastolic blood pressure 75 mm[Hg] Aidan Bains Jr., RN CLINICAL.SIGNAL INSPECTOR Work Phone: [facility] 12-28-2024 15:10-0400 Heart rate 93 /min Aidan Bains Jr., RN CLINICAL.SIGNAL INSPECTOR Work Phone: [facility] 12-28-2024 15:10-0400 Respiratory rate 18 /min Aidan Bains Jr., RN CLINICAL.SIGNAL INSPECTOR Work Phone: [facility] 12-28-2024 15:10-0400 SaO2% (BldA) [Mass fraction] 99 % Aidan Bains Jr., RN CLINICAL.SIGNAL INSPECTOR Work Phone: [facility] 12-28-2024 15:10-0400 Systolic blood pressure 112 mm[Hg] Aidan Bains Jr., RN CLINICAL.SIGNAL INSPECTOR Work Phone: [facility] 10-09-2024 07:36-0400 Diastolic Blood Pressure Non-Invasive 78 mm[Hg] DR BEVERLY MACDONALD DO [facility] 10-09-2024 07:36-0400 Heart rate 70 /min DR BEVERLY MACDONALD DO [facility] 10-09-2024 07:36-0400 Respiratory rate 16 /min DR BEVERLY MACDONALD DO [facility] 10-09-2024 07:36-0400 Systolic Blood Pressure Non-Invasive 119 mm[Hg] DR BEVERLY MACDONALD DO [facility] 10-09-2024 04:03-0400 Diastolic Blood Pressure Non-Invasive 70 mm[Hg] DR BEVERLY MACDONALD DO [facility] 10-09-2024 04:03-0400 Heart rate 94 /min DR BEVERLY MACDONALD DO [facility] 10-09-2024 04:03-0400 Reason For Taking VItal Signs DR BEVERLY MACDONALD DO [facility] 10-09-2024 04:03-0400 Respiratory rate 18 /min DR BEVERLY MACDONALD DO [facility] 10-09-2024 04:03-0400 Systolic Blood Pressure Non-Invasive 110 mm[Hg] DR BEVERLY MACDONALD DO [facility] 10-09-2024 02:02-0400 Blood Pressure Cuff Size DR BEVERLY MACDONALD DO [facility] 10-09-2024 02:02-[address] BEVERLY MACDONALD DO [facility] 10-09-2024 02:02-[address] BEVERLY MACDONALD DO [facility] 10-09-2024 02:02-0400 Body temperature 97.88 [degF] DR BEVERLY MACDONLAD DO [facility] 10-09-2024 02:02-0400 Body weight 81.[address] BEVERLY MACDONALD DO [facility] 10-09-2024 02:02-0400 Diastolic Blood Pressure Non-Invasive 77 mm[Hg] DR BEVERLY MACDONALD DO [facility] 10-09-2024 02:02-0400 Heart rate 128 /min DR BEVERLY MACDONALD DO [facility] 10-09-2024 02:02-0400 Respiratory rate 18 /min DR BEVERLY MACDONALD DO [facility] 10-09-2024 02:02-0400 Systolic Blood Pressure Non-Invasive 142 mm[Hg] DR BEVERLY MACDONALD DO [facility] 10-02-2024 18:28-0400 Body mass index (BMI) [Ratio] 30.9 kg/m2 Alan Fairchild APRN.SIGNAL INSPECTOR Work Phone: [facility] 10-02-2024 18:28-0400 Body temperature 98.29 [degF] Alan Fairchild APRN.SIGNAL INSPECTOR Work Phone: [facility] 10-02-2024 18:28-0400 Body weight 81.65 kg Alan Fairchild APRN.SIGNAL INSPECTOR Work Phone: [facility] 10-02-2024 18:28-0400 Diastolic blood pressure 90 mm[Hg] Alan Fairchild APRN.SIGNAL INSPECTOR Work Phone: [facility] 10-02-2024 18:28-0400 Heart rate 110 /min Alan Fairchild APRN.SIGNAL INSPECTOR Work Phone: [facility] 10-02-2024 18:28-0400 Respiratory rate 18 /min Alan Fairchild APRN.SIGNAL INSPECTOR Work Phone: [facility] 10-02-2024 18:28-0400 SaO2% (BldA) [Mass fraction] 99 % Alan Fairchild RN CLINICAL.SIGNAL INSPECTOR Work Phone: [facility] 10-02-2024 18:28-0400 Systolic blood pressure 127 mm[Hg] Alan Fairchild RN CLINICAL.SIGNAL INSPECTOR Work Phone: [facility] 09-27-2024 17:24-0400 Body mass index (BMI) [Ratio] 30.9 kg/m2 Aidan Bains Jr., RN CLINICAL.SIGNAL INSPECTOR Work Phone: [facility] 09-27-2024 17:24-0400 Body temperature 97.81 [degF] Aidan Bains Jr., RN CLINICAL.SIGNAL INSPECTOR Work Phone: [facility] 09-27-2024 17:24-0400 Body weight 81.65 kg Aidan Bains Jr., RN CLINICAL.SIGNAL INSPECTOR Work Phone: [facility] 09-27-2024 17:24-0400 Diastolic blood pressure 85 mm[Hg] Aidan Bains Jr., RN CLINICAL.SIGNAL INSPECTOR Work Phone: [facility] 09-27-2024 17:24-0400 Heart rate 91 /min Aidan Bains Jr., RN CLINICAL.SIGNAL INSPECTOR Work Phone: [facility] 09-27-2024 17:24-0400 Respiratory rate 18 /min Aidan Bains Jr., RN CLINICAL.SIGNAL INSPECTOR Work Phone: [facility] 09-27-2024 17:24-0400 SaO2% (BldA) [Mass fraction] 100 % Aidan Bains Jr., RN CLINICAL.SIGNAL INSPECTOR Work Phone: [facility] 09-27-2024 17:24-0400 Systolic blood pressure 119 mm[Hg] Aidan Bains Jr., RN CLINICAL.SIGNAL INSPECTOR Work Phone: [facility] 09-10-2024 18:18-0400 Body mass index (BMI) [Ratio] 30.9 kg/m2 Aidan Bains Jr., RN CLINICAL.SIGNAL INSPECTOR Work Phone: [facility] 09-10-2024 18:18-0400 Body temperature 97.7 [degF] Aidan Bains Jr., RN CLINICAL.SIGNAL INSPECTOR Work Phone: [facility] 09-10-2024 18:18-0400 Body weight 81.65 kg Aidan Bains Jr., RN CLINICAL.SIGNAL INSPECTOR Work Phone: [facility] 09-10-2024 18:18-0400 Diastolic blood pressure 81 mm[Hg] Aidan Bains Jr., RN CLINICAL.SIGNAL INSPECTOR Work Phone: [facility] 09-10-2024 18:18-0400 Heart rate 89 /min Aidan Bains Jr., RN CLINICAL.SIGNAL INSPECTOR Work Phone: [facility] 09-10-2024 18:18-0400 Respiratory rate 18 /min Aidan Bains Jr., RN CLINICAL.SIGNAL INSPECTOR Work Phone: [facility] 09-10-2024 18:18-0400 SaO2% (BldA) [Mass fraction] 99 % Aidan Bains Jr., RN CLINICAL.SIGNAL INSPECTOR Work Phone: [facility] 09-10-2024 18:18-0400 Systolic blood pressure 118 mm[Hg] Aidan Bains Jr., RN CLINICAL.SIGNAL INSPECTOR Work Phone: [facility] 08-26-2024 10:01-0500 Body mass index (BMI) [Ratio] 31.41 kg/m2 Caitlin Curtis APRN.SIGNAL INSPECTOR Work Phone: [facility] 08-26-2024 10:01-0500 Body temperature 98.91 [degF] Caitlin Curtis APRN.SIGNAL INSPECTOR Work Phone: [facility] 08-26-2024 10:01-0500 Body weight 83.01 kg Caitlin Curtis APRN.SIGNAL INSPECTOR Work Phone: [facility] 08-26-2024 10:01-0500 Diastolic blood pressure 74 mm[Hg] Caitlin Curtis APRN.SIGNAL INSPECTOR Work Phone: [facility] 08-26-2024 10:01-0500 Heart rate 113 /min Caitlin Curtis APRN.SIGNAL INSPECTOR Work Phone: [facility] 08-26-2024 10:01-0500 Respiratory rate 12 /min Caitlin Curtis RN CLINICAL.SIGNAL INSPECTOR Work Phone: [facility] 08-26-2024 10:01-0500 SaO2% (BldA) [Mass fraction] 96 % Caitlin Curtis RN CLINICAL.SIGNAL INSPECTOR Work Phone: [facility] 08-26-2024 10:01-0500 Systolic blood pressure 124 mm[Hg] Acitlin Curtis RN CLINICAL.SIGNAL INSPECTOR Work Phone: [facility] 08-21-2024 14:39-0500 Body mass index (BMI) [Ratio] 31.51 kg/m2 Caitlin Curtis RN CLINICAL.SIGNAL INSPECTOR Work Phone: [facility] 08-21-2024 14:39-0500 Body weight 83.28 kg Caitlin Curtis RN CLINICAL.SIGNAL INSPECTOR Work Phone: [facility] 08-21-2024 14:39-0500 Diastolic blood pressure 72 mm[Hg] Caitlin Curtis RN CLINICAL.SIGNAL INSPECTOR Work Phone: [facility] 08-21-2024 14:39-0500 Heart rate 118 /min Caitlin Curtis RN CLINICAL.SIGNAL INSPECTOR Work Phone: [facility] 08-21-2024 14:39-0500 SaO2% (BldA) [Mass fraction] 98 % Caitlin Curtis RN CLINICAL.SIGNAL INSPECTOR Work Phone: [facility] 08-21-2024 14:39-0500 Systolic blood pressure 112 mm[Hg] Caitlin Curtis RN CLINICAL.SIGNAL INSPECTOR Work Phone: [facility] 08-16-2024 19:26-0500 Body mass index (BMI) [Ratio] 30.73 kg/m2 Myah Argueta MD Work Phone: [facility] 08-16-2024 19:26-0500 Body temperature 97.81 [degF] Myah Argueta MD Work Phone: [facility] 08-16-2024 19:26-0500 Body weight 81.19 kg Myah Argueta MD Work Phone: [facility] 08-16-2024 19:26-0500 Diastolic blood pressure 99 mm[Hg] Myah Argueta MD Work Phone: [facility] 08-16-2024 19:26-0500 Heart rate 104 /min Myah Argueta MD Work Phone: [facility] 08-16-2024 19:26-0500 Respiratory rate 18 /min Myah Argueta MD Work Phone: [facility] 08-16-2024 19:26-0500 SaO2% (BldA) [Mass fraction] 99 % Myah Argueta MD Work Phone: [facility] 08-16-2024 19:26-0500 Systolic blood pressure 139 mm[Hg] Myah Argueta MD Work Phone: [facility] 07-29-2024 13:00-0500 Diastolic blood pressure 73 mm[Hg] Dr. Juan Manuel Antonio DO Work Phone: [facility] 07-29-2024 13:00-0500 Heart rate 102 /min Dr. Juan Manuel Antonio DO Work Phone: [facility] 07-29-2024 13:00-0500 Respiratory rate 18 /min Dr. Juan Manuel Antonio DO Work Phone: [facility] 07-29-2024 13:00-0500 Systolic blood pressure 130 mm[Hg] Dr. Juan Manuel Antonio DO Work Phone: [facility] 07-29-2024 11:07-0500 Body height 162.[address] Juan Manuel Antonio DO Work Phone: [facility] 07-29-2024 11:07-0500 Body mass index (BMI) [Ratio] 32.5 kg/m2 Dr. Juan Manuel Antonio DO Work Phone: [facility] 07-29-2024 11:07-0500 Body weight 86.[address] Juan Manuel Antonio DO Work Phone: [facility] 07-29-2024 09:01-0500 Body mass index (BMI) [Ratio] 32.79 kg/m2 Caitlin Curtis RN CLINICAL.SIGNAL INSPECTOR Work Phone: [facility] 07-29-2024 09:01-0500 Body temperature 98.71 [degF] Caitlin Curtis RN CLINICAL.SIGNAL INSPECTOR Work Phone: [facility] 07-29-2024 09:01-0500 Body weight 86.64 kg Caitlin Curtis RN CLINICAL.SIGNAL INSPECTOR Work Phone: [facility] 07-29-2024 09:01-0500 Diastolic blood pressure 70 mm[Hg] Caitlin Curtis RN CLINICAL.SIGNAL INSPECTOR Work Phone: [facility] 07-29-2024 09:01-0500 Heart rate 110 /min Caitlin Curtis RN CLINICAL.SIGNAL INSPECTOR Work Phone: [facility] 07-29-2024 09:01-0500 Respiratory rate 14 /min Caitlin Curtis RN CLINICAL.SIGNAL INSPECTOR Work Phone: [facility] 07-29-2024 09:01-0500 SaO2% (BldA) [Mass fraction] 99 % Caitlin Curtis RN CLINICAL.SIGNAL INSPECTOR Work Phone: [facility] 07-29-2024 09:01-0500 Systolic blood pressure 110 mm[Hg] Caitlin Curtis RN CLINICAL.SIGNAL INSPECTOR Work Phone: [facility] 07-28-2024 10:17-0500 Body temperature 97.59 [degF] Stalin Rodriguez RN CLINICAL.SIGNAL INSPECTOR Work Phone: [facility] 07-28-2024 10:17-0500 Diastolic blood pressure 75 mm[Hg] Stalin Rodriguez RN CLINICAL.SIGNAL INSPECTOR Work Phone: [facility] 07-28-2024 10:17-0500 Heart rate 104 /min Stalin Rodriguez RN CLINICAL.SIGNAL INSPECTOR Work Phone: [facility] 07-28-2024 10:17-0500 Respiratory rate 18 /min Stalin Rodriguez RN CLINICAL.SIGNAL INSPECTOR Work Phone: [facility] 07-28-2024 10:17-0500 SaO2% (BldA) [Mass fraction] 97 % Stalin Rodriguez RN CLINICAL.SIGNAL INSPECTOR Work Phone: [facility] 07-28-2024 10:17-0500 Systolic blood pressure 125 mm[Hg] Stalin Rodriguez RN CLINICAL.SIGNAL INSPECTOR Work Phone: [facility] 07-15-2024 12:40-0500 Body mass index (BMI) [Ratio] 33.3 kg/m2 Juan Manuel Antonio DO Work Phone: [facility] 07-15-2024 12:40-0500 Body temperature 98.1 [degF] Juan Manuel Antonio DO Work Phone: [facility] 07-15-2024 12:40-0500 Body weight 88 kg Juan Manuel Antonio DO Work Phone: [facility] 07-15-2024 12:40-0500 Diastolic blood pressure 60 mm[Hg] Juan Manuel Antonio DO Work Phone: [facility] 07-15-2024 12:40-0500 Heart rate 80 /min Juan Manuel Antonio DO Work Phone: [facility] 07-15-2024 12:40-0500 Respiratory rate 16 /min Juan Manuel Antonio DO Work Phone: [facility] 07-15-2024 12:40-0500 Systolic blood pressure 120 mm[Hg] Juan Manuel Antonio DO Work Phone: [facility] 07-10-2024 17:49-0500 Body mass index (BMI) [Ratio] 32.61 kg/m2 Nora Floyd RN CLINICAL.SIGNAL INSPECTOR Work Phone: [facility] 07-10-2024 17:49-0500 Body temperature 98.01 [degF] Nora Shevchuk RN CLINICAL.SIGNAL INSPECTOR Work Phone: [facility] 07-10-2024 17:49-0500 Body weight 86.18 kg Nora Shevchuk RN CLINICAL.SIGNAL INSPECTOR Work Phone: [facility] 07-10-2024 17:49-0500 Diastolic blood pressure 87 mm[Hg] Nora Shevchuk RN CLINICAL.SIGNAL INSPECTOR Work Phone: [facility] 07-10-2024 17:49-0500 Heart rate 86 /min Nora Shevchuk RN CLINICAL.SIGNAL INSPECTOR Work Phone: [facility] 07-10-2024 17:49-0500 Respiratory rate 16 /min Nora Shevchuk RN CLINICAL.SIGNAL INSPECTOR Work Phone: [facility] 07-10-2024 17:49-0500 SaO2% (BldA) [Mass fraction] 97 % Nora Shevchuk RN CLINICAL.SIGNAL INSPECTOR Work Phone: [facility] 07-10-2024 17:49-0500 Systolic blood pressure 136 mm[Hg] Nora Shevchuk RN CLINICAL.SIGNAL INSPECTOR Work Phone: [facility] 06-30-2024 10:00-0500 Body mass index (BMI) [Ratio] 33.68 kg/m2 Iliana Simms RN CLINICAL.SIGNAL INSPECTOR Work Phone: [facility] 06-30-2024 10:00-0500 Body temperature 97.3 [degF] Iliana Simms RN CLINICAL.SIGNAL INSPECTOR Work Phone: [facility] 06-30-2024 10:00-0500 Body weight 89 kg Iliana Simms APRN.SIGNAL INSPECTOR Work Phone: [facility] 06-30-2024 10:00-0500 Diastolic blood pressure 72 mm[Hg] Iliana Simms RN CLINICAL.SIGNAL INSPECTOR Work Phone: [facility] 06-30-2024 10:00-0500 Heart rate 91 /min Iliana Simms RN CLINICAL.SIGNAL INSPECTOR Work Phone: [facility] 06-30-2024 10:00-0500 Respiratory rate 18 /min Iliana Simms RN CLINICAL.SIGNAL INSPECTOR Work Phone: [facility] 06-30-2024 10:00-0500 SaO2% (BldA) [Mass fraction] 97 % Iliana Simms RN CLINICAL.SIGNAL INSPECTOR Work Phone: [facility] 06-30-2024 10:00-0500 Systolic blood pressure 102 mm[Hg] Iliana Naveen RN CLINICAL.SIGNAL INSPECTOR Work Phone: [facility] 06-17-2024 09:55-0500 Body mass index (BMI) [Ratio] 34.17 kg/m2 Caitlin Curtis RN CLINICAL.SIGNAL INSPECTOR Work Phone: [facility] 06-17-2024 09:55-0500 Body weight 90.3 kg Caitlin Curtis RN CLINICAL.SIGNAL INSPECTOR Work Phone: [facility] 06-17-2024 09:55-0500 Diastolic blood pressure 68 mm[Hg] Caitlin Curtis RN CLINICAL.SIGNAL INSPECTOR Work Phone: [facility] 06-17-2024 09:55-0500 Heart rate 99 /min Caitlin Curtis RN CLINICAL.SIGNAL INSPECTOR Work Phone: [facility] 06-17-2024 09:55-0500 Respiratory rate 14 /min Caitlin Curtis RN CLINICAL.SIGNAL INSPECTOR Work Phone: [facility] 06-17-2024 09:55-0500 SaO2% (BldA) [Mass fraction] 98 % Caitlin Curtis RN CLINICAL.SIGNAL INSPECTOR Work Phone: [facility] 06-17-2024 09:55-0500 Systolic blood pressure 120 mm[Hg] Caitlin Curtis RN CLINICAL.SIGNAL INSPECTOR Work Phone: [facility] 06-04-2024 10:21-0500 Body mass index (BMI) [Ratio] 33.98 kg/m2 Alecia Gallegos PA-C Work Phone: [facility] 06-04-2024 10:21-0500 Body temperature 98.2 [degF] Alecia Hampotnk PA-C Work Phone: [facility] 06-04-2024 10:21-0500 Body weight 89.8 kg Alecia Hamptonk PA-C Work Phone: [facility] Comment on above: with shoes 06-04-2024 10:21-0500 Diastolic blood pressure 79 mm[Hg] Alecia Romerojuan carlosk PA-C Work Phone: [facility] 06-04-2024 10:21-0500 Heart rate 113 /min Alecia Hamptonk PA-C Work Phone: [facility] Comment on above: provider notified 06-04-2024 10:21-0500 Respiratory rate 18 /min Alecia Romerojuan carlosk PA-C Work Phone: [facility] 06-04-2024 10:21-0500 SaO2% (BldA) [Mass fraction] 98 % Alecia Hamptonk PA-C Work Phone: [facility] 06-04-2024 10:21-0500 Systolic blood pressure 131 mm[Hg] Alecia Hamptonk PA-C Work Phone: [facility] 05-31-2024 13:00-0500 Body mass index (BMI) [Ratio] 32.62 kg/m2 Caitlin Curtis RN CLINICAL.SIGNAL INSPECTOR Work Phone: [facility] 05-31-2024 13:00-0500 Body temperature 98.4 [degF] Caitlin Curtis RN CLINICAL.SIGNAL INSPECTOR Work Phone: [facility] 05-31-2024 13:00-0500 Body weight 86.2 kg Caitlin Curtis RN CLINICAL.SIGNAL INSPECTOR Work Phone: [facility] 05-31-2024 13:00-0500 Diastolic blood pressure 64 mm[Hg] Caitlin Curtis RN CLINICAL.SIGNAL INSPECTOR Work Phone: [facility] 05-31-2024 13:00-0500 Heart rate 104 /min Caitlin Curtis RN CLINICAL.SIGNAL INSPECTOR Work Phone: [facility] 05-31-2024 13:00-0500 Respiratory rate 16 /min Caitlin Curtis RN CLINICAL.SIGNAL INSPECTOR Work Phone: [facility] 05-31-2024 13:00-0500 SaO2% (BldA) [Mass fraction] 98 % Caitlin Curtis RN CLINICAL.SIGNAL INSPECTOR Work Phone: [facility] 05-31-2024 13:00-0500 Systolic blood pressure 104 mm[Hg] Caitlin Curtis RN CLINICAL.SIGNAL INSPECTOR Work Phone: [facility] 05-29-2024 17:51-0500 Body mass index (BMI) [Ratio] 33.3 kg/m2 Garfield Pendlebury RN CLINICAL.SIGNAL INSPECTOR Work Phone: [facility] 05-29-2024 17:51-0500 Body temperature 98.71 [degF] Garfield Pendlebury RN CLINICAL.SIGNAL INSPECTOR Work Phone: [facility] 05-29-2024 17:51-0500 Body weight 88 kg Garfield Pendlesandee RN CLINICAL.SIGNAL INSPECTOR Work Phone: [facility] 05-29-2024 17:51-0500 Diastolic blood pressure 79 mm[Hg] Garfield Pendlebury RN CLINICAL.SIGNAL INSPECTOR Work Phone: [facility] 05-29-2024 17:51-0500 Heart rate 98 /min Garfield Pendlebury RN CLINICAL.SIGNAL INSPECTOR Work Phone: [facility] 05-29-2024 17:51-0500 Respiratory rate 22 /min Garfield Pendlebury RN CLINICAL.SIGNAL INSPECTOR Work Phone: [facility] 05-29-2024 17:51-0500 SaO2% (BldA) [Mass fraction] 97 % Garfield Pendlebury RN CLINICAL.SIGNAL INSPECTOR Work Phone: [facility] 05-29-2024 17:51-0500 Systolic blood pressure 115 mm[Hg] Garfield Pendlebury RN CLINICAL.SIGNAL INSPECTOR Work Phone: [facility] 04-26-2024 18:45-0400 Body mass index (BMI) [Ratio] 34.28 kg/m2 Jammie Gooden RN CLINICAL.SIGNAL INSPECTOR Work Phone: [facility] 04-26-2024 18:45-0400 Body temperature 97.5 [degF] Jammie Gooden RN CLINICAL.SIGNAL INSPECTOR Work Phone: [facility] 04-26-2024 18:45-0400 Body weight 90.6 kg Jammie Gooden RN CLINICAL.SIGNAL INSPECTOR Work Phone: [facility] 04-26-2024 18:45-0400 Diastolic blood pressure 81 mm[Hg] Jammie Gooden RN CLINICAL.SIGNAL INSPECTOR Work Phone: [facility] 04-26-2024 18:45-0400 Heart rate 97 /min Jammie Gooden RN CLINICAL.SIGNAL INSPECTOR Work Phone: [facility] 04-26-2024 18:45-0400 Respiratory rate 18 /min Jammie Gooden RN CLINICAL.SIGNAL INSPECTOR Work Phone: [facility] 04-26-2024 18:45-0400 SaO2% (BldA) [Mass fraction] 98 % Jammie Gooden RN CLINICAL.SIGNAL INSPECTOR Work Phone: [facility] 04-26-2024 18:45-0400 Systolic blood pressure 122 mm[Hg] Jammie Gooden RN CLINICAL.SIGNAL INSPECTOR Work Phone: [facility] 03-30-2024 08:13-0400 Body mass index (BMI) [Ratio] 33.53 kg/m2 Earline Tay MD Work Phone: [facility] 03-30-2024 08:13-0400 Body temperature 98.1 [degF] Earline Tay MD Work Phone: [facility] 03-30-2024 08:13-0400 Body weight 88.6 kg Earline Tay MD Work Phone: [facility] 03-30-2024 08:13-0400 Diastolic blood pressure 70 mm[Hg] Earline Tay MD Work Phone: [facility] 03-30-2024 08:13-0400 Heart rate 100 /min Earline Tay MD Work Phone: [facility] 03-30-2024 08:13-0400 Respiratory rate 20 /min Earline Tay MD Work Phone: [facility] 03-30-2024 08:13-0400 SaO2% (BldA) [Mass fraction] 97 % Earline Tay MD Work Phone: [facility] 03-30-2024 08:13-0400 Systolic blood pressure 112 mm[Hg] Earline Tay MD Work Phone: [facility] 01-09-2024 14:36-0400 Body mass index (BMI) [Ratio] 33.68 kg/m2 Jammie Gooden RN CLINICAL.SIGNAL INSPECTOR Work Phone: [facility] 01-09-2024 14:36-0400 Body temperature 98.6 [degF] Jammie Gooden RN CLINICAL.SIGNAL INSPECTOR Work Phone: [facility] 01-09-2024 14:36-0400 Body weight 89 kg Jammie Gooden RN CLINICAL.SIGNAL INSPECTOR Work Phone: [facility] 01-09-2024 14:36-0400 Diastolic blood pressure 80 mm[Hg] Jammie Gooden RN CLINICAL.SIGNAL INSPECTOR Work Phone: [facility] 01-09-2024 14:36-0400 Heart rate 92 /min Jammie Gooden RN CLINICAL.SIGNAL INSPECTOR Work Phone: [facility] 01-09-2024 14:36-0400 Respiratory rate 18 /min Jammie Gooden RN CLINICAL.SIGNAL INSPECTOR Work Phone: [facility] 01-09-2024 14:36-0400 SaO2% (BldA) [Mass fraction] 97 % Jammie Gooden RN CLINICAL.SIGNAL INSPECTOR Work Phone: [facility] 01-09-2024 14:36-0400 Systolic blood pressure 113 mm[Hg] Jammie Gooden RN CLINICAL.SIGNAL INSPECTOR Work Phone: [facility] 12-29-2023 13:12-0400 Diastolic blood pressure 70 mm[Hg] Jill Arpit RN CLINICAL.SIGNAL INSPECTOR Work Phone: [facility] 12-29-2023 13:12-0400 Heart rate 83 /min Jill Arpit RN CLINICAL.SIGNAL INSPECTOR Work Phone: [facility] 12-29-2023 13:12-0400 Respiratory rate 16 /min Jill Arpit RN CLINICAL.SIGNAL INSPECTOR Work Phone: [facility] 12-29-2023 13:12-0400 SaO2% (BldA) [Mass fraction] 98 % Jill Arpit RN CLINICAL.SIGNAL INSPECTOR Work Phone: [facility] 12-29-2023 13:12-0400 Systolic blood pressure 118 mm[Hg] Jill Arpit RN CLINICAL.SIGNAL INSPECTOR Work Phone: [facility] 12-27-2023 18:55-0400 Body height 162.6 cm Juan Manuel Antonio DO Work Phone: [facility] 12-27-2023 18:55-0400 Body mass index (BMI) [Ratio] 33.47 kg/m2 Juan Manuel Antonio DO Work Phone: [facility] 12-27-2023 18:55-0400 Body temperature 97 [degF] Juan Manuel Antonio DO Work Phone: [facility] 12-27-2023 18:55-0400 Body weight 88.45 kg Juan Manuel Antonio DO Work Phone: [facility] 12-27-2023 18:55-0400 Diastolic blood pressure 70 mm[Hg] Juan Manuel Antonio DO Work Phone: [facility] 12-27-2023 18:55-0400 Heart rate 80 /min Juan Manuel Antonio DO Work Phone: [facility] 12-27-2023 18:55-0400 Respiratory rate 16 /min Juan Manuel Antonio DO Work Phone: [facility] 12-27-2023 18:55-0400 Systolic blood pressure 120 mm[Hg] Juan Manuel Antonio DO Work Phone: [facility] 12-07-2023 08:06-0400 Body mass index (BMI) [Ratio] 33.41 kg/m2 Garfield Pendarmond RN CLINICAL.SIGNAL INSPECTOR Work Phone: [facility] 12-07-2023 08:06-0400 Body temperature 97.2 [degF] Garfield Mack RN CLINICAL.SIGNAL INSPECTOR Work Phone: [facility] 12-07-2023 08:06-0400 Body weight 88.3 kg Garfield Mack RN CLINICAL.SIGNAL INSPECTOR Work Phone: [facility] 12-07-2023 08:06-0400 Diastolic blood pressure 76 mm[Hg] Garfield Mack RN CLINICAL.SIGNAL INSPECTOR Work Phone: [facility] 12-07-2023 08:06-0400 Heart rate 93 /min Garfield Mack RN CLINICAL.SIGNAL INSPECTOR Work Phone: [facility] 12-07-2023 08:06-0400 Respiratory rate 20 /min Garfield Mack RN CLINICAL.SIGNAL INSPECTOR Work Phone: [facility] 12-07-2023 08:06-0400 SaO2% (BldA) [Mass fraction] 97 % Garfield Mack RN CLINICAL.SIGNAL INSPECTOR Work Phone: [facility] 12-07-2023 08:06-0400 Systolic blood pressure 110 mm[Hg] Garfield Mack RN CLINICAL.SIGNAL INSPECTOR Work Phone: [facility] 12-04-2023 13:30-0400 Body height 162.[address] 12-04-2023 13:30-0400 Body mass index (BMI) [Ratio] 33.47 kg/m2 [address] 12-04-2023 13:30-0400 Body temperature 98.01 [degF] [address] 12-04-2023 13:30-0400 Body weight 88.45 kg Pac 1 [facility] 12-04-2023 13:30-0400 Diastolic blood pressure 77 mm[Hg] Pac 1 [facility] 12-04-2023 13:30-0400 Heart rate 88 /min Pac 1 [facility] 12-04-2023 13:30-0400 SaO2% (BldA) [Mass fraction] 96 % Pac 1 [facility] 12-04-2023 13:30-0400 Systolic blood pressure 117 mm[Hg] Pac 1 [facility] 06-19-2022 08:13-0500 Body temperature 98.1 [degF] Jammie Gooden RN CLINICAL.SIGNAL INSPECTOR Work Phone: [facility] 06-19-2022 08:13-0500 Body weight 90.45 kg Jammie Gooden RN CLINICAL.SIGNAL INSPECTOR Work Phone: [facility] 06-19-2022 08:13-0500 Diastolic blood pressure 60 mm[Hg] Jammie Gooden RN CLINICAL.SIGNAL INSPECTOR Work Phone: [facility] 06-19-2022 08:13-0500 Heart rate 90 /min Jammie Gooden RN CLINICAL.SIGNAL INSPECTOR Work Phone: [facility] 06-19-2022 08:13-0500 Respiratory rate 21 /min Jammie Gooden RN CLINICAL.SIGNAL INSPECTOR Work Phone: [facility] 06-19-2022 08:13-0500 SaO2% (BldA) [Mass fraction] 99 % Jammie Gooden RN CLINICAL.SIGNAL INSPECTOR Work Phone: [facility] 06-19-2022 08:13-0500 Systolic blood pressure 104 mm[Hg] Jammie Gooden RN CLINICAL.SIGNAL INSPECTOR Work Phone: [facility] 11-16-2021 08:34-0400 Body height 162.6 cm Jocy Casiano MD Work Phone: [facility] 11-16-2021 08:34-0400 Body weight 84.37 kg Jocy Casiano MD Work Phone: [facility] 11-16-2021 08:34-0400 Diastolic blood pressure 78 mm[Hg] Jocy Casiano MD Work Phone: [facility] 11-16-2021 08:34-0400 Systolic blood pressure 128 mm[Hg] Jocy Casiano MD Work Phone: [facility] Encounters Encounter Date Encounter Type Care Provider Facility Start: 01-30-2025 End: 01-30-2025 ambulatory SELF Facility:[id number] Start: 01-30-2025 End: 01-30-2025 Patient encounter procedure Tera Olivier MAMADOU Work Phone: [facility] Comment on above: Urinary frequency (P rimary Dx) Start: 01-29-2025 End: 01-29-2025 Admission to same day surgery center Armida Alas DO Work Phone: [facility] Comment on above: FMLA Paperwork Start: 01-29-2025 End: 01-29-2025 ambulatory Armida Alas DO Work Phone: [facility] Surgery Start: 01-20-2025 End: 01-20-2025 Admission to same day surgery center Armida Alas DO Work Phone: [facility] Surgery Comment on above: Spina bifida, unspec ified hydrocephalus presence, unspecified spinal region (HCC) (Primary Dx); Neurogenic bowel Start: 01-20-2025 End: 01-20-2025 Telemedicine consultation with patient Armida Vasquez LOPEZ Work Phone: Colorectal Surgery Start: 01-20-2025 End: 01-20-2025 ambulatory JUAN MANUEL ANTONIO Facility:[facility] Start: 01-14-2025 End: 01-14-2025 Telephone encounter Juan Manuel Antonio DO Work Phone: [facility] [place] Comment on above: Patient Request Apprentice Painter Brush - O ther Start: 01-13-2025 End: 01-13-2025 Telephone encounter Armida Vasquez DO Work Phone: [facility] Surgery Comment on above: FMLA Paperwork Start: 12-28-2024 End: 12-28-2024 Patient encounter procedure Aidan Bains APRN.SIGNAL INSPECTOR Work Phone: [facility] [place] Comment on above: Rash (Primary Dx); Urticaria Start: 12-28-2024 End: 12-28-2024 ambulatory JUAN MANUEL ANTONIO Facility:[id number] Start: 12-25-2024 End: 12-25-[address] Juan Manuel Antonio DO Work Phone: -Radiology [facility] Start: 12-25-2024 End: 12-25-2024 Patient encounter procedure Colton Juárez DO -Radiology [facility] Work Phone: Start: 12-25-2024 End: 12-25-2024 Admission to same day surgery center Luis Enrique Cross APRN.SIGNAL INSPECTOR Work Phone: Colorectal Surgery Comment on above: Spina bifida, unspec ified hydrocephalus presence, unspecified spinal region (HCC); Cystic fibrosis (HCC); Chronic constipation Start: 12-25-2024 End: 12-25-2024 Telemedicine consultation with patient Luis Enrique Cross APRN.SIGNAL INSPECTOR Work Phone: Colorectal Surgery Start: 12-25-2024 End: 12-25-2024 ambulatory JUAN MANUEL ANTONIO Facility:[facility] Start: 12-25-2024 End: 12-25-2024 ambulatory Colton Juárez Facility:[facility] Start: 12-23-2024 End: 12-23-2024 Telephone encounter Armida Alas DO Work Phone: Colorectal Surgery Comment on above: Constipation Start: 12-20-2024 End: 12-23-2024 Telephone encounter Tali Kim APRN.SIGNAL INSPECTOR Work Phone: Urology Start: 12-19-2024 End: 12-23-2024 ambulatory Christen Gee MD Work Phone: Urology Comment on above: Urine Culture Start: 12-18-2024 End: 12-18-2024 ambulatory [facility]:[id number] Start: 12-05-2024 End: 12-05-2024 Admission to same day surgery center Armida Alas DO Work Phone: Colorectal Surgery Comment on above: Surgery date Start: 12-05-2024 End: 12-05-2024 ambulatory Armida Alas DO Work Phone: Colorectal Surgery Start: 12-03-2024 End: 12-03-2024 Telephone encounter Armida Alas DO Work Phone: Colorectal Surgery Comment on above: Returning Patient's Call Start: 12-02-2024 End: 12-02-2024 Telephone encounter Armida Alas DO Work Phone: Colorectal Surgery Comment on above: Schedule Surgery Start: 12-02-2024 End: 12-02-2024 Patient encounter procedure Colton Juárez DO -[facility] Work Phone: Start: 12-02-2024 End: 12-02-[address] Juan Manuel Antonio DO Work Phone: [facility] Work Phone: Start: 11-29-2024 End: 11-29-2024 Telephone encounter Armida Alas DO Work Phone: Colorectal Surgery Comment on above: Apprentice Painter Brush - O ther Start: 11-28-2024 End: 11-28-2024 Admission to same day surgery center Armida Alas DO Work Phone: Colorectal Surgery Comment on above: Following up from ph one call Start: 11-28-2024 End: 11-28-2024 ambulatory Armida Alas DO Work Phone: Colorectal Surgery Start: 11-28-2024 End: 11-28-2024 Telephone encounter Armida Alas DO Work Phone: Colorectal Surgery Comment on above: Apprentice Painter Brush - O ther Start: 11-27-2024 End: 11-27-2024 ambulatory [facility]:[id number] Start: 11-26-2024 End: 11-26-2024 Admission to same day surgery center Armida Alas DO Work Phone: Colorectal Surgery Comment on above: Ileostomy Start: 11-26-2024 End: 11-26-2024 ambulatory Armida Alas DO Work Phone: Colorectal Surgery Start: 11-20-2024 End: 11-20-2024 Admission to same day surgery center Armida Alas DO Work Phone: Colorectal Surgery Comment on above: Spina bifida without hydrocephalus, unspecified spinal region (HCC); Neurogenic bowel; Chronic constipation; Class 1 obesity with body mass index (BMI) of 30.0 to 30.9 in adult, unspecified obesity type, unspecified whether serious comorbidity present Start: 11-20-2024 End: 11-20-2024 Telemedicine consultation with patient Armida Alas DO Work Phone: Colorectal Surgery Start: 11-20-2024 End: 11-20-2024 ambulatory JUAN MANUEL L ANTONIO Facility:[facility] Start: 10-30-2024 End: 11-01-2024 Follow-up encounter Juan Manuel L Antonio DO Work Phone: [facility] Start: 10-25-2024 End: 10-25-2024 ambulatory JUAN MANUEL L ANTONIO Facility:[facility] Start: 10-25-2024 End: 10-25-2024 ambulatory JUAN MANUEL L ANTONIO Facility:[facility] Start: 10-21-2024 End: 10-21-2024 Telephone encounter Naveen Moya RN Work Phone: Urology Comment on above: Orders Start: 10-21-2024 End: 10-21-2024 Patient encounter procedure Christen Gee MD Work Phone: Urology Comment on above: Neurogenic bladder ( Primary Dx); Neurogenic bowel; Recurrent UTI; Cauda equina syndrome with neurogenic bladder (HCC); Chiari malformation type I (HCC); Constipation, unspecified constipation type Start: 10-21-2024 End: 10-21-2024 ambulatory CHRISTEN GEE Facility:[facility] Start: 10-18-2024 End: 10-18-2024 Telephone encounter Christen Gee MD Work Phone: [facility] Start: 10-15-2024 End: 10-22-2024 ambulatory [facility] Cindi umanzor Comment on above: UTI Start: 10-15-2024 End: 10-22-2024 E-mail encounter from caregiver [facility] [place] Start: 10-15-2024 End: 12-15-2024 Follow-up encounter Josef Monaco PA-C Work Phone: [facility] Start: 10-14-2024 End: 10-15-2024 Telephone encounter Juan Manuel Natalie Antonio DO Work Phone: [facility] [place] Start: 10-14-2024 End: 10-14-2024 Patient encounter procedure Colton Friend DO -Cat Scan, [facility] Work Phone: Start: 10-14-2024 End: 10-14-2024 ambulatory Juan Manuel Jeanon DO Work Phone: [facility] [place] Comment on above: Urine Culture Start: 10-14-2024 End: 10-14-2024 ambulatory Juan Manuel Antonio Facility:[facility] Start: 10-09-2024 End: 10-16-2024 Telephone encounter Juan Manuel Jeanon DO Work Phone: [facility] Comment on above: Patient Question; Pa mauriciont Update Start: 10-09-2024 End: 10-09-2024 Emergency department patient visit DR BEVERLY MACDONALD DO [facility] Start: 10-07-2024 End: 10-07-2024 ambulatory [facility] Comment on above: UTI Start: 10-04-2024 End: 10-06-2024 Follow-up encounter Aidan Bains APRN.SIGNAL INSPECTOR Work Phone: [facility] [place] Comment on above: Results Start: 10-04-2024 End: 10-07-2024 Telephone encounter Alecia Gallegos PA-C Work Phone: [facility] Comment on above: Patient Update Start: 10-03-2024 End: 10-03-2024 Emergency department patient visit JUAN MANUEL ANTONIO Facility:[facility] Start: 10-02-2024 End: 10-02-2024 Patient encounter procedure Alan Fairchild APRN.SIGNAL INSPECTOR Work Phone: [facility] Comment on above: Recurrent UTI (urina ry tract infection) (Primary Dx); Urinary frequency Start: 10-02-2024 End: 10-02-2024 ambulatory SELF Facility:[id number] Start: 10-02-2024 End: 10-02-2024 Telephone encounter Juan Manuel Antonio DO Work Phone: [facility] Comment on above: Appointment Start: 09-27-2024 End: 09-27-2024 ambulatory JUAN MANUEL ANTONIO Facility:[id number] Start: 09-27-2024 End: 09-27-2024 Patient encounter procedure Aidan Bains APRN.SIGNAL INSPECTOR Work Phone: [facility] Comment on above: Recurrent UTI (urina ry tract infection) (Primary Dx); Urinary problem Start: 09-27-2024 End: 11-27-2024 Follow-up encounter Aidan Bains APRN.SIGNAL INSPECTOR Work Phone: [facility] Start: 09-20-2024 End: 09-30-2024 Telephone encounter Juan Manuel Antonio DO Work Phone: [facility] Start: 09-16-2024 End: 09-16-2024 Patient encounter procedure Colton Juárez DO -[facility] Work Phone: Start: 09-16-2024 End: 09-16-2024 ambulatory Colton Juárez Facility:[facility] Start: 09-10-2024 End: 09-10-2024 Patient encounter procedure Aidan Bains APRN.SIGNAL INSPECTOR Work Phone: [facility] Comment on above: Recurrent UTI (urina ry tract infection) (Primary Dx); Urinary problem Start: 09-10-2024 End: 09-10-2024 ambulatory JUAN MANUEL ANTONIO Facility:[id number] Start: 09-10-2024 End: 11-10-2024 Follow-up encounter Aidan Bains APRN.SIGNAL INSPECTOR Work Phone: [facility] Start: 09-02-2024 End: 09-02-[address] Juan Manuel Antonio DO Work Phone: [facility] Work Phone: Start: 09-02-2024 End: 09-02-2024 Patient encounter procedure Colton Juárez DO -Nuclear Medicine, [facility] Work Phone: Start: 09-02-2024 End: 09-02-2024 ambulatory Colton Juárez Facility:[facility] Start: 08-29-2024 End: 08-29-2024 ambulatory Alecia Gallegos PA-C Work Phone: [facility] Comment on above: Updated MRI post Chi danny decompression Start: 08-26-2024 End: 08-26-2024 ambulatory CAITLIN CURTIS Facility:[facility] Start: 08-26-2024 End: 08-26-2024 Office outpatient visit 15 minutes Caitlin Curtis RN CLINICAL.SIGNAL INSPECTOR Work Phone: [facility] Comment on above: Cellulitis of toe of left foot (Primary Dx) Start: 08-21-2024 End: 08-21-2024 ambulatory CAITLIN CURTIS Facility:[facility] Start: 08-21-2024 End: 08-21-2024 Office outpatient visit 15 minutes Caitlin Curtis RN CLINICAL.SIGNAL INSPECTOR Work Phone: [facility] Comment on above: Cellulitis of toe of left foot (Primary Dx) Start: 08-20-2024 End: 08-20-2024 ambulatory Juan Manuel Antonio DO Work Phone: [facility] Comment on above: Dr. Camden casey Start: 08-19-2024 End: 08-19-2024 ambulatory Juan Manuel Antonio DO Work Phone: [facility] Comment on above: UTI Medication Start: 08-19-2024 End: 08-19-2024 Telephone encounter Juan Manuel Antonio DO Work Phone: [facility] Comment on above: Patient Question Start: 08-16-2024 End: 08-16-2024 Office outpatient visit 15 minutes Myah Argueta MD Work Phone: [facility] Comment on above: Recurrent UTI (urina ry tract infection) (Primary Dx) Start: 08-16-2024 End: 08-16-2024 ambulatory SELF Facility:[id number] Start: 08-15-2024 End: 08-15-2024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 01/29/2025 (Approximate), Expires: 04/30/2025 [facility] Work Phone: Comment on above: Expected: 01/29/2025 (Approximate), Expires: 04/30/2025 Start: 01-29-2025 End: 04-30-2025 Comprehensive metabolic 2000 panel - Serum or Plasma COMPREHENSIVE METABOLIC PANEL Lab Routine Spina bifida without hydrocephalus, unspecified spinal region (HCC) Expected: 01/29/2025, Expires: 04/30/2025 [facility] Comment on above: Expected: 01/29/2025 , Expires: 04/30/2025 Start: 01-29-2025 End: 01-29-2025 Admission to same day surgery center Colorectal Surgery Comment on above: Pre Op Pre Op: FBP (Miralax & Gatorade); Hibclense; NPO; check has antibiotics Start: 01-29-2025 End: 01-29-2025 Patient encounter procedure Admitting Comment on above: Pre Op Start: 01-29-2025 End: 01-29-2025 Anesthesia consultation 01/29/2025 10:00 AM EDT PAT Pre Anesthesia [address] [address] 9, [address] [place] [address] Pre Op Pre Anesthesia Comment on above: Pre Op Start: 01-28-2025 End: 01-28-2025 ambulatory 01/28/2025 8:00 [facility] [address] [place] [address] Irvin Vogt MD [address] [place] [address] spina bifida Rehab Medicine Comment on above: spina bifida Start: 01-20-2025 End: 01-20-2025 Admission to same day surgery center 01/20/2025 4:30 PM EDT [facility] Colorectal Surgery [address] [address] Armida Alas DO [address] [place] [address] discuss progress and surgical options Colorectal Surgery Comment on above: discuss progress and surgical options Start: 01-15-2025 End: 01-15-2025 Admission to same day surgery center 01/15/2025 4:00 PM EDT [facility] Colorectal Surgery [address] [address] Armida Alas DO [address] [place] [address] discuss progress and surgical options Colorectal Surgery Comment on above: discuss progress and surgical options Start: 12-30-2024 Influenza vaccination Influenza Vacc ine (#1) [facility] Comment on above: Postponed from 03/03 (Declined at this time) Start: 12-26-2024 Anxiety Screening Anxiety Screening [facility] Start: 12-26-2024 Depression Screening Depression Scre ening [facility] Start: 12-05-2024 End: 03-06-2025 TYPE AND SCREEN,30 DAY TYPE AND SCREEN,30 DAY Blood Bank Routine Spina bifida without hydrocephalus, unspecified spinal region (HCC) Expected: 12/05/2024, Expires: 03/06/2025 [facility] Comment on above: Expected: 12/05/2024 , Expires: 03/06/2025 Start: 11-20-2024 End: 11-20-2024 Admission to same day surgery center 11/20/2024 4:30 PM EDT [facility] Colorectal Surgery [address] [address] Armida Alas DO [address] [place] [address] Neurogenic bowel Colorectal Surgery Comment on above: Neurogenic bowel Start: 11-16-2024 PAP TESTING PAP TESTING [facility] Start: 11-16-2024 Screening for malign ant neoplasm of cervix [facility] Start: 10-25-2024 End: 10-25-2024 Patient encounter procedure 10/25/2024 11:00 AM EDT Office Visit [facility] [place] [address] [place], [place] [id number] Juan Maunel Antonio DO [address] [place], [place] [phone] ER F/U ([facility] 10/03 and 10/09) [facility] Comment on above: ER F/U ([facility] 10/03 and 10/09) Start: 10-21-2024 End: 01-20-2025 CYSTATIN C CYSTATIN C Lab Routine Neurogenic bladder Expected: 10/21/2024, Expires: 01/20/2025 [facility] Work Phone: Comment on above: Expected: 10/21/2024 , Expires: 01/20/2025 Start: 10-21-2024 End: 10-21-2024 Patient encounter procedure 10/21/2024 9:00 AM EDT Office Visit Urology [address] [address] Christen Gee MD [address] [place] [address] Spina Bifida/ recurring UTI Urology Comment on above: Spina Bifida/ recurr ing UTI Start: 10-14-2024 End: 10-14-2024 Patient encounter procedure 10/14/2024 10:40 AM EDT Office Visit [facility] [place] [address] [facility] [place] [address] Juan Manuel Antonio, [address] [place] [address] 3 month follow up [facility] [place] Comment on above: 3 month follow up Start: 08-26-2024 End: 08-26-2024 Patient encounter procedure 08/26/2024 10:00 AM EST Office Visit [facility] [place] [address] [facility] [place] [address] Caitlin Curtis, RN CLINICAL.SIGNAL INSPECTOR [address] [place] [address] follow up on lft foot [facility] Comment on above: follow up on lft jeffrey t Start: 08-21-2024 End: 08-21-2024 Patient encounter procedure 08/21/2024 2:40 PM EST Office Visit [facility] [place] [address] [place] [address] Caitlin Curtis, RN CLINICAL.SIGNAL INSPECTOR [address] [facility] [place] [address] Infection is back/ follow up [facility] [place] Comment on above: Infection is back/ f ollow up Start: 07-31-2024 End: 07-31-2024 Patient encounter procedure 07/31/2024 6:40 PM EST Office Visit [facility] [place] [address] [place] [address] Caitlin Curtis, RN CLINICAL.SIGNAL INSPECTOR [address] [facility] [place] [address] follow up left foot [facility] [place] Comment on above: follow up left foot Start: 07-29-2024 End: 10-28-2024 Bacteria identified in Blood by Culture [facility] Comment on above: Expected: 07/29/2024 , Expires: 10/28/2024 Start: 07-29-2024 End: 10-28-2024 CBC W Auto Differential panel - Blood [facility] Work Phone: Comment on above: Expected: 07/29/2024 , Expires: 10/28/2024 Start: 07-29-2024 End: 10-28-2024 Comprehensive metabolic 2000 panel - Serum or Plasma [facility] Comment on above: Expected: 07/29/2024 , Expires: 10/28/2024 Start: 07-29-2024 Following clinical pathway protocol [facility] Start: 07-22-2024 End: 07-22-2024 Patient encounter procedure Radiology Comment on above: Dysmenorrhea [N94.6] Start: 07-15-2024 End: 07-15-2024 Patient encounter procedure 07/15/2024 12:40 PM EST Office Visit [facility] [place] [address] [place], [place] [phone] Juan Manuel Antonio DO [address] [place], [place] [phone] Discuss my overall health [facility] [place] Comment on above: Discuss my overall h ealth Start: 07-08-2024 End: 07-08-2024 Patient encounter procedure 07/08/2024 1:40 PM EST Appointment Cat Scan [address] [place], [place] [id number] Subacute cough [R05.2] Cat Scan Comment on above: Subacute cough [R05. 2] Start: 06-29-2024 End: 06-29-2024 Patient encounter procedure 06/29/2024 9:30 AM EST Appointment Radiology [address] [place] [address] message to reschedule Subacute cough [R05.2] Radiology Comment on above: message to reschedul e Subacute cough [R05.2] Start: 06-04-2024 End: 06-04-2024 Patient encounter procedure 06/04/2024 10:15 AM EST Office Visit [facility] [address] [place] [address] Alecia Gallegos PA-C [address] [place] [address] 6mo f/u [facility] Comment on above: 6mo f/u Start: 05-06-2024 End: 05-06-2024 Patient encounter procedure 05/06/2024 8:40 AM EST Appointment Radiology [address] [place], [place] [address] Chiari I malformation (HCC) [G93.5] MRI CERVICAL SPINE WO IVCON Radiology Comment on above: Chiari I malformatio n (HCC) [G93.5] MRI CERVICAL SPINE WO IVCON Start: 04-08-2024 End: 04-08-2024 Patient encounter procedure 04/08/2024 1:40 PM EDT Appointment Radiology [address] [place], [place] [address] MRI CERVICAL SPINE WO IVCON Radiology Comment on above: MRI CERVICAL SPINE W O IVCON Start: 03-03-2024 Covid-19 Vaccine ( season) Covid-19 Vaccine ( season) [facility] Start: 03-03-2024 Covid-19 Vaccine ( season) Covid-19 Vaccine ( season) [facility] Start: 03-03-2024 Influenza vaccination Influenza Vacc ine (#1) [facility] Start: 01-26-2024 End: 01-26-2024 ambulatory 01/26/2024 8:00 AM EDT [facility] [address] [id number] Alecia Gallegos PA-C [address] [place] [address] post op [facility] Comment on above: post op Start: 01-01-2024 End: 01-01-2024 Nursing evaluation of patient and report 01/01/2024 9:00 AM EDT Nurse Visit [facility] [address] [place] [address] Ventura Pizano, JUDE Post op [facility] Comment on above: Post op Start: 12-29-2023 End: 12-29-2023 Patient encounter procedure 12/29/2023 1:20 PM EDT Office Visit Family Yuliana Pittman [address] [place] [address] Jill Munson APRN.SIGNAL INSPECTOR [address] [place] [address] Suture removal Scalp ok per Dr. Antonio [facility] Comment on above: Suture removal Scalp ok per Dr. Antonio Start: 12-27-2023 End: 12-27-2023 Patient encounter procedure 12/27/2023 7:00 PM EDT Office Visit Family Yuliana Pittman [address] [place], [place] [id number] Juan Manuel Antonio DO [address] [place] [address] Antonio [facility] Comment on above: establish care per Wendie Antonio Start: 12-27-2023 End: 03-27-2024 CBC W Auto Differential panel - Blood COMPLETE BLOOD COUNT AND DIFFERENTIAL Lab Routine Routine physical examination Expected: 12/27/2023, Expires: 03/27/2024 [facility] Comment on above: Expected: 12/27/2023 , Expires: 03/27/2024 Start: 12-27-2023 End: 03-27-2024 Comprehensive metabolic 2000 panel - Serum or Plasma COMPREHENSIVE METABOLIC PANEL Lab Routine Routine physical examination Expected: 12/27/2023, Expires: 03/27/2024 [facility] Work Phone: Comment on above: Expected: 12/27/2023 , Expires: 03/27/2024 Start: 12-27-2023 End: 03-27-2024 Hemoglobin A1c in Blood HEMOGLOBIN A1C Lab Routine Routine physical examination Expected: 12/27/2023, Expires: 03/27/2024 [facility] Comment on above: Expected: 12/27/2023 , Expires: 03/27/2024 Start: 12-27-2023 End: 03-27-2024 Lipid 1996 panel - Serum or Plasma LIPID PANEL BASIC Lab Routine Routine physical examination Expected: 12/27/2023, Expires: 03/27/2024 [facility] Comment on above: Expected: 12/27/2023 , Expires: 03/27/2024 Start: 12-27-2023 End: 03-27-2024 Thyrotropin [Units/volume] in Serum or Plasma THYROID STIMULATING HORMONE Lab Routine Routine physical examination Expected: 12/27/2023, Expires: 03/27/2024 [facility] Comment on above: Expected: 12/27/2023 , Expires: 03/27/2024 Start: 12-27-2023 End: 03-27-2024 Thyroxine (T4) free [Mass/volume] in Serum or Plasma T4 FREE/FREE THYROXINE Lab Routine Routine physical examination Expected: 12/27/2023, Expires: 03/27/2024 [facility] Comment on above: Expected: 12/27/2023 , Expires: 03/27/2024 Start: 12-27-2023 End: 03-27-2024 Triiodothyronine (T3) Free [Mass/volume] in Serum or Plasma T3, FREE Lab Routine Routine physical examination Expected: 12/27/2023, Expires: 03/27/2024 [facility] Comment on above: Expected: 12/27/2023 , Expires: 03/27/2024 Start: 12-15-2023 End: 12-15-2023 Admission to same day surgery center 12/15/2023 12:00 PM EDT - 12/15/2023 4:30 PM EDT Surgery Admitting [address] [place] [address] [place] [address] [place] [address] CRANIECTOMY SUBOCCIPITAL W/ CERV LAMI FOR DECOMPRESS W/ DURAL GRAFT Admitting Comment on above: CRANIECTOMY SUBOCCIP ITAL W/ CERV LAMI FOR DECOMPRESS W/ DURAL GRAFT Start: 12-15-2023 End: 12-15-2023 Crnec suboccipital crv heredia dcmprn medulla & cord [facility] Start: 12-15-2023 Subsequent hospital visit by physician Admitting Comment on above: 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] Start: 12-08-2023 End: 12-08-2023 Nursing evaluation of patient and report 12/08/2023 9:00 AM EDT Nurse Visit [facility] [address] [place] [address] Ventura Pizano RN Pre op [facility] Comment on above: Pre op Start: 12-04-2023 End: 03-04-2024 Comprehensive metabolic 2000 panel - Serum or Plasma [facility] Comment on above: Expected: 12/04/2023 , Expires: 03/04/2024 Start: 12-04-2023 End: 03-04-2024 CONFIRM BLOOD TYPE [facility] Comment on above: Expected: 12/04/2023 , Expires: 03/04/2024 Start: 12-04-2023 End: 03-04-2024 TYPE AND SCREEN,30 DAY [facility] Work Phone: Comment on above: Expected: 12/04/2023 , Expires: 03/04/2024 Start: 11-29-2023 End: 12-14-2024 MR Cervical spine WO contrast MRI CERVICAL SPINE WO IVCON Radiology Routine Chiari I malformation (HCC) Expected: 11/29/2023 (Approximate), Expires: 12/14/2024 [facility] Comment on above: Expected: 11/29/2023 (Approximate), Expires: 12/14/2024 Start: 11-29-2023 End: 02-28-2024 STAPHYLOCOCCUS AUREUS & MRSA SCREEN, PCR, NASAL STAPHYLOCOCCUS AUREUS & MRSA SCREEN, PCR, NASAL Lab Routine Preop testing Expected: 11/29/2023 (Approximate), Expires: 02/28/2024 [facility] Work Phone: Comment on above: Expected: 11/29/2023 (Approximate), Expires: 02/28/2024 Start: 07-03-2023 Behavioral Health Screening Behavioral Health Screening [facility] Start: 03-03-2023 Covid-19 Vaccine () Covid-19 Vaccine () [facility] Start: 03-03-2023 Influenza vaccination Influenza Vacc ine (#1) [facility] Start: 07-03-2022 [facility] Start: 06-19-2022 End: 07-03-2022 Influenza virus A and B RNA and SARS-CoV-2 (COVID-19) N gene panel - Respiratory specimen by DAREN with probe detection COVID WITH FLUA+B, ROUTINE Microbiology Routine URI, acute Expected: 06/19/2022, Expires: 07/03/2022 [facility] Work Phone: Comment on above: Expected: 06/19/2022 , Expires: 07/03/2022 Start: 03-03-2022 Influenza vaccination [facility] Start: 07-03-2021 DEPRESSION ASSESSMENT DEPRESSION ASS [place] Start: 05-17-2021 COVID-19 VACCINE (3 - Booster for Pfizer series) COVID-19 VACCINE (3 - Booster for Pfizer series) [facility] Start: 02-09-2021 COVID-19 VACCINE (3 - Booster for Pfizer series) COVID-19 VACCINE (3 - Booster for Pfizer series) [facility] Start: 02-09-2021 Covid-19 Vaccine (3 - Pfizer series) Covid-19 Vaccine (3 - Pfizer series) [facility] Start: 12-22-2019 PAP TESTING PAP TESTING [facility] Start: 05-22-2019 Ultrasound Kid cesar Bilateral [id number]x [facility] [id number] Work Phone: Start: 08-25-2017 Adult depression screening assessment DEPRESSION SCREENING [facility] Start: 2016 CHLAMYDIA SCREENING (18-24) CHLAMYDIA SCREENING (18-24) [facility] Start: 2016 GC (GONORRHEA) SCREE OMAR (18-24) GC (GONORRHEA) SCREENING (18-24) [facility] Start: 2016 HEPATITIS C SCREENING HEPATITIS C [facility] Start: 2016 Hepatitis C screening Hepatitis C [facility] Start: 2016 HIV SCREENING HIV SCREENING [facility] Start: 2014 Meningococcal B Vacc ine: Consider Based On Risk (1 of 2 - Patient Seeks Protection) Meningococcal B Vaccine: Consider Based On Risk (1 of 2 - Patient Seeks Protection) [facility] Start: 2012 PEDS TO ADULT TRANSI TION ANNUAL ASSESSMENT PEDS TO ADULT TRANSITION ANNUAL ASSESSMENT [facility] Start: 2010 PEDS TO ADULT TRANSI TION INITIAL DISCUSSION PEDS TO ADULT TRANSITION INITIAL DISCUSSION [facility] Start: 2008 MENINGOCOCCAL B: Con 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 based on risk (1 of 2 - Risk Bexsero 2-dose series) MENINGOCOCCAL B: Consider based on risk (1 of 2 - Risk Bexsero 2-dose series) [facility] Bacteria identified in Urine by Culture URINE CULTURE Microbiology Routine Urinary frequency Ordered: 12/07/2023 [facility] Work Phone: Comment on above: Ordered: 12/07/2023 Bacteria identified in Urine by Culture URINE CULTURE Microbiology Routine History of urinary self-catheterization Dysuria Ordered: 01/09/2024 [facility] Work Phone: Comment on above: Ordered: 01/09/2024 Bacteria identified in Urine by Culture URINE CULTURE Microbiology Routine Burning with urination Ordered: 04/26/2024 [facility] Work Phone: Comment on above: Ordered: 04/26/2024 Bacteria identified in Urine by Culture BACTERIAL CULTURE, URINE Microbiology Routine Dysuria Acute cystitis without hematuria 07/10/2024 7:31 PM EST [facility] Work Phone: End: 07-15-2025 Bacteria identified in Urine by Culture BACTERIAL CULTURE, URINE Microbiology Routine Recurrent UTI (urinary tract infection) Once per week for 52 Occurrences starting 07/15/2024 until 07/15/2025, 1 completed [facility] Work Phone: Comment on above: Once per week for 52 Occurrences starting 07/15/2024 until 07/15/2025, 1 completed Bacteria identified in Urine by Culture BACTERIAL CULTURE, URINE Microbiology Routine Recurrent UTI (urinary tract infection) Urinary problem 09/10/2024 6:56 PM EDT [facility] Work Phone: Bacteria identified in Urine by Culture BACTERIAL CULTURE, URINE Microbiology Routine Recurrent UTI (urinary tract infection) Ordered: 09/27/2024 [facility] Work Phone: Comment on above: Ordered: 09/27/2024 Bacteria identified in Urine by Culture BACTERIAL CULTURE, URINE Microbiology Routine Recurrent UTI (urinary tract infection) 10/02/2024 7:20 PM EDT [facility] Work Phone: End: 10-21-2025 Bacteria identified in Urine by Culture BACTERIAL CULTURE, URINE Microbiology Routine Recurrent UTI Once per month for 12 Occurrences starting 10/21/2024 until 10/21/2025 [facility] Comment on above: Once per month for 1 2 Occurrences starting 10/21/2024 until 10/21/2025 Bacteria identified in Urine by Culture BACTERIAL CULTURE, URINE Microbiology Routine Urinary frequency 01/30/2025 9:36 PM EDT [facility] Work Phone: Crnec suboccipital c rv heredia dcmprn medulla & cord CRANIECTOMY SUBOCCIPITAL W/ CERV LAMI FOR DECOMPRESS W/ DURAL GRAFT Chiari malformation type I (HCC) [facility] End: 07-17-2025 CT Chest W contrast IV CT CHEST W IVCON Radiology Routine Subacute cough SOB (shortness of breath) Pleuritic pain 1 Occurrences starting 06/17/2024 until 07/17/2025 [facility] Work Phone: Comment on above: 1 Occurrences starti ng 06/17/2024 until 07/17/2025 H&P for surgery H&P FOR SURGERY Procedures Routine Spina bifida without hydrocephalus, unspecified spinal region (HCC) Ordered: 12/05/2024 [facility] Comment on above: Ordered: 12/05/2024 Insertion intrauteri ne device iud INSERT INTRAUTERINE DEVICE Procedures Routine Encounter for initial prescription of intrauterine contraceptive device (IUD) Ordered: 11/16/2021 [facility] Work Phone: Comment on above: Ordered: 11/16/2021 Laps colectomy abdl w/proctectomy w/ileostomy ROBOTIC LAPAROSCOPIC COMPLETION PROCTECTOMY Spina bifida without hydrocephalus, unspecified spinal region (HCC) [facility] End: 02-24-2025 MR Cervical spine WO contrast MRI CERVICAL SPINE WO IVCON Radiology Routine Chiari I malformation (HCC) 1 Occurrences starting 01/26/2024 until 02/24/2025 [facility] Work Phone: Comment on above: 1 Occurrences starti ng 01/26/2024 until 02/24/2025 End: 07-04-2025 MR Cervical spine WO contrast MRI CERVICAL SPINE WO IVCON Radiology Routine Chiari I malformation (HCC) 1 Occurrences starting 06/04/2024 until 07/04/2025 [facility] Work Phone: Comment on above: 1 Occurrences starti ng 06/04/2024 until 07/04/2025 End: 04-22-2024 Mri brain brain stem w/o contrast material MRI BRAIN WO IVCON Radiology Routine Chiari I malformation (HCC) 1 Occurrences starting 03/24/2023 until 04/22/2024 [facility] Work Phone: Comment on above: 1 Occurrences starti ng 03/24/2023 until 04/22/2024 End: 04-28-2023 Mri spinal canal cervical w/o contrast matrl MRI CERVICAL SPINE WO IVCON Radiology Routine Chiari I malformation (HCC) 1 Occurrences starting 03/29/2022 until 04/28/2023 [facility] Work Phone: Comment on above: 1 Occurrences starti ng 03/29/2022 until 04/28/2023 PAP FLUID CERVICAL SCREENING PAP FLUID CERVICAL SCREENING Lab Routine Screening for cervical cancer Ordered: 11/16/2021 [facility] Work Phone: Comment on above: Ordered: 11/16/2021 Patient referral [facility] Work Phone: REFER FOR ADMIT INTERVIEW REFER FOR ADMIT INTERVIEW Procedures Routine Spina bifida without hydrocephalus, unspecified spinal region (HCC) Ordered: 12/05/2024 [facility] Comment on above: Ordered: 12/05/2024 End: 07-15-2025 Urinalysis complete panel - Urine URINALYSIS, WITH MICROSCOPIC Lab Routine Recurrent UTI (urinary tract infection) Once per week for 52 Occurrences starting 07/15/2024 until 07/15/2025, 1 completed [facility] Comment on above: Once per week for 52 Occurrences starting 07/15/2024 until 07/15/2025, 1 completed End: 08-14-2025 US Pelvis limited US FEMALE PELVIS TRANSABD LTD Radiology Routine Dysmenorrhea 1 Occurrences starting 07/15/2024 until 08/14/2025 [facility] Comment on above: 1 Occurrences starti ng 07/15/2024 until 08/14/2025 End: 08-14-2025 US Pelvis transvaginal US FEMALE PELVIS TRANSVAG Radiology Routine Dysmenorrhea 1 Occurrences starting 07/15/2024 until 08/14/2025 [facility] Comment on above: 1 Occurrences starti ng 07/15/2024 until 08/14/2025 End: 08-28-2025 XR Foot - left AP and Lateral and oblique XR FOOT GENERAL 3V AP/LAT/OBL LEFT Radiology Routine Cellulitis of toe of left foot 1 Occurrences starting 07/29/2024 until 08/28/2025 [facility] Comment on above: 1 Occurrences starti ng 07/29/2024 until 08/28/2025 XR Foot - left AP an d Lateral and oblique XR FOOT GENERAL 3V AP/LAT/OBL LEFT Radiology Routine Cellulitis of toe of left foot 07/29/2024 10:02 AM EST [facility] [address] Work Phone: [facility] NEGATED: Highlighted row has been ruled out! Planned Goals not documented [id number] e [id number] Work Phone: Immunizations Immunization Date Immunization Notes Care Provider Ishan rowe 05-03-2023 influenza virus vacc ine, unspecified formulation Gyant Provider [facility] 04-14-2022 influenza virus vacc ine, unspecified formulation Mri (I-Stat/1.5t) Work Phone: [facility] 01-27-2021 tetanus toxoid, redu rm diphtheria toxoid, and acellular pertussis vaccine, adsorbed Graham Whitehead MD Work Phone: [facility] 12-15-2020 COVID-19 vaccine, ag e 12+ yr (JotSpot - PURPLE TOP) Graham Whitehead MD Work Phone: [facility] Work Phone: 11-24-2020 COVID-19 vaccine, ag e 12+ yr (Energate-Kiwi Crate - PURPLE TOP) Graham Whitehead MD Work Phone: [facility] Work Phone: 04-22-2020 influenza, seasonal, injectable Graham Whitehead MD Work Phone: [facility] Work Phone: 04-22-2020 influenza virus vacc ine, unspecified formulation Nieves Story MD Work Phone: [facility] 12-27-2019 human papilloma viru s vaccine, quadrivalent Graham Whitehead MD Work Phone: [facility] Work Phone: 12-27-2019 Human Papillomavirus 9-valent vaccine Graham Whitehead MD Work Phone: [facility] Work Phone: 07-10-2019 Human Papillomavirus 9-valent vaccine Graham Whitehead MD Work Phone: [facility] Work Phone: 05-27-2019 Human Papillomavirus 9-valent vaccine Graham Whitehead MD Work Phone: [facility] Work Phone: 08-25-2016 meningococcal polysaccharide (groups A, C, Y and W-135) diphtheria toxoid conjugate vaccine (MCV4P) Graham Whitehead MD Work Phone: [facility] Work Phone: 04-08-2015 influenza, live, intranasal, quadrivalent Graham Whitehead MD Work Phone: [facility] Work Phone: 04-07-2012 influenza virus vacc ine, live, attenuated, for intranasal use Graham Whitehead MD Work Phone: [facility] 01-30-2012 Meningococcal, MCV4, unspecified conjugate formulation(groups A, C, Y and W-135) Graham Whitehead MD Work Phone: [facility] Work Phone: 01-30-2012 varicella virus vaccine Graham Whitehead MD Work Phone: [facility] 03-14-2011 influenza virus vacc ine, live, attenuated, for intranasal use Graham Whitehead MD Work Phone: [facility] Work Phone: 05-07-2010 influenza virus vacc ine, live, attenuated, for intranasal use Graham Whitehead MD Work Phone: [facility] Work Phone: 12-28-2009 tetanus toxoid, redu rm diphtheria toxoid, and acellular pertussis vaccine, adsorbed Graham Whitehead MD Work Phone: [facility] Work Phone: 04-14-2009 influenza virus vacc ine, live, attenuated, for intranasal use Graham Whitehead MD Work Phone: [facility] Work Phone: 04-01-2008 influenza virus vacc ine, live, attenuated, for intranasal use Graham Whitehead MD Work Phone: [facility] Work Phone: 04-28-2007 influenza virus vacc ine, unspecified formulation Graham Whitehead MD Work Phone: [facility] Work Phone: 05-01-2006 influenza virus vacc ine, live, attenuated, for intranasal use Graham Whitehead MD Work Phone: [facility] Work Phone: 04-22-2005 influenza virus vacc ine, unspecified formulation Graham Whitehead MD Work Phone: [facility] Work Phone: 04-07-2004 influenza virus vacc ine, unspecified formulation Graham Whitehead MD Work Phone: [facility] Work Phone: 01-07-2004 diphtheria, tetanus toxoids and acellular pertussis vaccine Graham Whitehead MD Work Phone: [facility] Work Phone: 01-07-2004 measles, mumps and rubella virus vaccine Graham Whitehead MD Work Phone: [facility] Work Phone: 01-07-2004 poliovirus vaccine, inactivated Graham Whitehead MD Work Phone: [facility] Work Phone: 06-09-2003 influenza virus vacc ine, unspecified formulation Graham Whitehead MD Work Phone: [facility] Work Phone: 05-09-2003 influenza virus vacc ine, unspecified formulation Graham Whitehead MD Work Phone: [facility] Work Phone: 04-10-2000 diphtheria, tetanus toxoids and acellular pertussis vaccine Graham Whitehead MD Work Phone: [facility] Work Phone: 04-10-2000 haemophilus influenz ae type b vaccine, HbOC conjugate Graham Whitehead MD Work Phone: [facility] Work Phone: 04-10-2000 poliovirus vaccine, inactivated Graham Whitehead MD Work Phone: [facility] Work Phone: 01-07-2000 measles, mumps and rubella virus vaccine Graham Whitehead MD Work Phone: [facility] Work Phone: 01-07-2000 varicella virus vaccine Graham Whitehead MD Work Phone: [facility] Work Phone: 10-19-1999 hepatitis B vaccine, pediatric or pediatric/adolescent dosage Graham Whitehead MD Work Phone: [facility] Work Phone: 06-14-1999 diphtheria, tetanus toxoids and acellular pertussis vaccine Graham Whitehead MD Work Phone: [facility] Work Phone: 06-14-1999 haemophilus influenz ae type b vaccine, HbOC conjugate Graham Whitehead MD Work Phone: [facility] Work Phone: 04-26-1999 diphtheria, tetanus toxoids and acellular pertussis vaccine Graham Whitehead MD Work Phone: [facility] Work Phone: 04-26-1999 haemophilus influenz ae type b vaccine, HbOC conjugate Graham Whitehead MD Work Phone: [facility] Work Phone: 04-26-1999 poliovirus vaccine, inactivated Graham Whitehead MD Work Phone: [facility] Work Phone: 02-22-1999 diphtheria, tetanus toxoids and acellular pertussis vaccine Graham Whitehead MD Work Phone: [facility] Work Phone: 02-22-1999 haemophilus influenz ae type b vaccine, HbOC conjugate Graham Whitehead MD Work Phone: [facility] Work Phone: 02-22-1999 poliovirus vaccine, inactivated Graham Whitehead MD Work Phone: [facility] Work Phone: 01-22-1999 hepatitis B vaccine, pediatric or pediatric/adolescent dosage Graham Whitehead MD Work Phone: [facility] Work Phone: 1998 hepatitis B vaccine, pediatric or pediatric/adolescent dosage Graham Whitehead MD Work Phone: [facility] Work Phone: Payers Date Payer Category Payer Self-pay 2023 Unknown [id number] 2023 Private Health Insurance [id number] 2017 Medicaid [employer] [place] [id number] 2017-Present [phone] [address] [address] [place] [address] Medicaid [id number] 2017 Medicaid [id number] 2016 Unknown MMO MMO [employer] [id number] 2016-Present [phone] [address] [place] [address] PPO [id number] 2016 Unknown [id number] 2016 Unknown [id number] 2013 Unknown [id number] 1998 Unknown [id number] 1970 Unknown [id number] Unknown [id number] Unknown [id number] Unknown [id number] Unknown [id number] 462 Unknown [id number] 462 Unknown [id number] 462 Unknown [id number] 462 Unknown [id number] 462 Unknown [id number] 462 Unknown [id number] 462 Unknown [id number] 462 Unknown [id number] 462 Social History Date Type Detail Facility Start: 11-17-2014 End: 08-16-2024 Tobacco smoking status NHIS Never smoked tobacco [facility] Start: 01-27-2021 End: 05-24-2021 Alcohol intake Current non-drinker of alcohol (finding) [facility] Start: 06-27-2020 History SDOH Financial 5 [facility] Start: 06-27-2020 History SDOH Food Worry 1 [facility] Start: 06-27-2020 History SDOH Transport Med 2 [facility] Start: 11-17-2014 End: 06-19-2022 Tobacco Comment no smokers in home [facility] Start: 1998 Sex Assigned At Not on file [facility] Start: 03-16-2021 End: 11-16-2021 Exposure to SARS-CoV-2 (event) Not sure [facility] Start: 11-17-2014 End: 08-16-2024 Tobacco use and exposure Smokeless tobacco non-user [facility] Start: 06-27-2022 End: 07-15-2024 History of Social function [facility] Start: 06-27-2022 End: 07-15-2024 Tobacco use panel [facility] How hard is it for you to pay for the very basics like food, housing, medical care, and heating Not hard at all [facility] (I/We) worried whether (my/our) food would run out before (I/we) got money to buy more. Never true [facility] In the past 12 months, was there a time when you were not able to pay the mortgage or rent on time? No [facility] Start: 12-04-2023 End: 12-28-2024 Alcohol intake Current drinker of alcohol (finding) [facility] Start: 12-04-2023 Alcohol Comment Not weekly [facility] Start: 2000 Sex Assigned At Female [facility] Start: 11-24-2023 Gender identity Identifies as female gender (finding) [facility] Are you now , , , , never or living with a partner? Living with partner [facility] How often to you hav e a drink containing alcohol? Monthly or less [facility] How many standard drinks containing alcohol do you have on a typical day? 1 or 2 [facility] How often do you hav e 6 or more drinks on 1 occasion? Never [facility] How hard is it for you to pay for the very basics like food, housing, medical care, and heating Not very hard [facility] Do you feel stress - tense, restless, nervous, or anxious, or unable to sleep at night because your mind is troubled all the time - these days [OSQ] Only a little [facility] Start: 09-12-2024 End: 10-18-2024 Sex Female (finding) [facility] Tobacco smoking status [facility] NEGATED: Highlighted row - - [id number] [address] Work Phone: NEGATED: Highlighted rowStart: RADHAIan History of tobacco use Passive smoker [facility] Medical Equipment Procedure Code Equipment Code Equipment Origin al Text Equipment Identifier Dates Screw Bn 4.5mm 48mm Lc Dcp Dhs - [id number] Start: 10-05-2010 Comment on above: Description: 214.048 Screw Bn 4.5mm 52mm Lc Dcp Dhs - [id number] Start: 10-05-2010 Comment on above: Description: 4.5x50 Graft Duragen Bovine Collagen Matrix 2x2in Soft Tissue Resorbable Suturable - [id number] Start: 12-15-2023 Kit Tiss Vhsd Fr zn Prima 10ml - [id number] Start: 12-15-2023 Functional Status Date Assessment Result Facility 10-09-2024 Functional Status Independent [facility] 12-19-2023 Are you deaf, or do you have serious difficulty hearing No 12/19/2023 2:34 PM Monalisa Mcfarlane, JUDE No [facility] 12-19-2023 Are you blind, or do you have serious difficulty seeing, even when wearing glasses No 12/19/2023 2:34 PM Monalisa Mcfarlane, RN No [facility] 12-19-2023 Do you have serious difficulty walking or climbing stairs No 12/19/2023 2:34 PM Monalisa Mcfarlane, JUDE No [facility] 12-19-2023 Do you have difficul ty dressing or bathing No 12/19/2023 2:34 PM EDT Monalisa Bryan, RN No [facility] 12-19-2023 Because of a physica l, mental, or emotional condition, do you have difficulty doing errands alone such as visiting a physician's office or shopping No 12/19/2023 2:34 PM EDT Monalisa Bryan, RN No [facility] NEGATED: Highlighted row Functional performance Functional status health issues are not documented Disease EG-Nwxeueh-Btmgnjog 2470 Work Phone: Mental Status Date Assessment Result Facility 10-09-2024 Mental Status Orientation Orie nted x 4 [facility] 10-09[facility] Cognitive function Voice/Name [facility] Work Phone: 12-19-2023 Because of a physical, mental, or emotional condition, do you have serious difficulty concentrating, remembering, or making decisions No 12/19/2023 2:34 PM EDT Monalisa Bryan, JUDE No [facility] NEGATED: Highlighted row Cognitive function [Interpretation] Cognitive status health issues are not documented Disease SL-Ptqqofk-Loedeqep 2470 Work Phone: Clinical Notes 01-21-2019 to 01-30-2025 Addendum Note - Tera Olivier APRN.CNP - 01/30/2025 9:37 PM EDTAddendum Note - Tera Olivier APRN.CNP - 01/30/2025 9:37 PM EDTPatient InstructionsPatient InstructionsPatient Instructions Note Date & Type Note Facility 01-30-2025 Note Addended by: TERA OLIVIER on: 01/30/2025 09:37 PM Modules accepted: Orders [facility] 01-30-2025 Miscellaneous Notes Addended by: TERA OLIVIER on: 01/30/2025 09:37 PM Modules accepted: Orders documented in this encounter [facility] 01-30-2025 Instructions Tera Olivier APRN.CNP - 01/30/2025 6:33 PM EDT - Follow up with PCP in 3-5 days , sooner should any other issues arise. Emergency room if symptoms change or worsen. We discussed your urinary tract infection (UTI): - I prescribed Keflex (antibiotic) to treat your UTI. Take it three times a day for 7 days. This prescription has been sent to your pharmacy. - Avoid sexual activity for 7 days while completing the antibiotic course. - I sent your urine sample for a culture test. It will take 2-3 days to get the results. If the culture shows that the bacteria are resistant to Keflex, the nurse will contact you and switch you to a different antibiotic. - Drink plenty of fluids to stay hydrated. We discussed your allergies: - You are allergic to latex and bananas. Please continue to avoid these. Patient Education for Female Urinary Tract Infections Possible complications: Pyelonehritis Renal abscess Expected course/prognosis: * symptoms resolve within 2-3 days after starting treatment in almost all patients * one-fourth of women with simple UTI experience a second UTI within 6 months, and half at some time during lifetime. * patients with multiple recurrent UTI and no underlying urinary tract abnormality may receive long-term prophylactic antibioitic treatment. Trimethoprim-sulfamethoxazole and nitrofurantoin common used. * women with frequent or intercourse-related UTI should empty bladder immediately before and following intercourse and consider postcoital antibiotic treament Instructions: * Maintain good hydration * Avoid sexual intercourse when symptoms present *Take antibiotic as directed * Return if symptoms not resolved or markedly improved within 48 hours * Return if fever, chills, or flank pain develop * If taking prophylactic antiobiotics, take at bedtime * Take showers instead of tub baths * Avoid feminine hygiene sprays and scented douches * Wipe urethra from front to back documented in this encounter [facility] 01-30-2025 Note HNO ID: [id number] Author: TERA OLIVIER APRN.CNP Service: ? Author Type: Nurse Practitioner Type: Progress Notes Filed: 01/30/2025 18:45 Note Text: [facility] Subjective Madhuri Paulson is a 24 year old female. Patient presents with: Urinary Problem: [5 days] Patient is having frequency, urgency (No feeling below the waist). She feels she can completely void. There is no blood or odor to the urine. Hx of chronic UTI's. HPI Madhuri Paulson is a 24-year-old female presenting with concerns of a possible UTI. Madhuri reports a 2 day onset of suspected UTI. She denies urinary frequency or pain. She has not taken Azo today, though she sometimes uses it. She has a history of latex and banana allergies. Review of Systems Constitutional: Negative for activity change, appetite change, chills, diaphoresis, fatigue and fever. Respiratory: Negative for shortness of breath and wheezing. Cardiovascular: Negative for chest pain and palpitations. Gastrointestinal: Negative for abdominal pain, constipation, diarrhea, nausea and vomiting. Genitourinary: Positive for dysuria, frequency and urgency. Negative for decreased urine volume, difficulty urinating, enuresis, flank pain, genital sores, hematuria, vaginal bleeding, vaginal discharge and vaginal pain. Neurological: Negative for dizziness and headaches. Objective BP 116/86 (BP Site: Right Arm, BP Position: Sitting, BP Cuff Size: Regular Adult) Pulse 101 Temp 36.6 ?C (97.9 ?F) Resp 18 Wt 83 kg (183 lb) LMP 10/03/2024 (Approximate) SpO2 98% BMI 31.41 kg/m? Physical Exam Constitutional: General: She is not in acute distress. Appearance: Normal appearance. She is not toxic-appearing. HENT: Head: Normocephalic and atraumatic. Cardiovascular: Rate and Rhythm: Regular rhythm. Pulmonary: Effort: Pulmonary effort is normal. Breath sounds: Normal breath sounds. Abdominal: General: Bowel sounds are normal. There is no distension. Palpations: Abdomen is soft. Tenderness: There is no abdominal tenderness. There is no right CVA tenderness or left CVA tenderness. Hernia: No hernia is present. Neurological: General: No focal deficit present. Mental Status: She is alert and oriented to person, place, and time. Mental status is at baseline. {ASSESSMENT/PLAN: 1. Urinary frequency - ICD9: 788.41, ICD10: R35.0 acute - Send urine for culture - Patient education for prevention given - URINALYSIS, DIPSTICK ONLY - CEPHALEXIN 500 MG CAPSULE Onset 2 days ago. Urinalysis shows cloudy urine, negative leukocytes, positive nitrates. No dysuria reported due to spinal reflex. No tenderness reported. - Initiated Keflex TID for 7 days. - Advised to abstain from sexual intercourse for 7 days. - Sent urine sample for culture; results expected in 2-3 days. - Nurse will adjust antibiotics if culture shows resistance. - Encouraged increased fluid intake to prevent dehydration. -- Follow up with PCP in 3-5 days , sooner should any other issues arise. - Patient agreeable plan of care verbalized understanding instruction Recording using xPeerient software for draft documentation of the visit was discussed with the patient/authorized goodwill representative; all questions welcomed and answered. Patient/authorized goodwill representative agreed to proceed Tera Olivier APRN.[facility] 01-30-2025 History of Present illness Narrative [facility] Subjective Madhuri Paulson is a 24 year old female. Patient presents with: Urinary Problem: [5 days] Patient is having frequency, urgency (No feeling below the waist). She feels she can completely void. There is no blood or odor to the urine. Hx of chronic UTI's. HPI Madhuri Paulson is a 24-year-old female presenting with concerns of a possible UTI. Madhuri reports a 2 day onset of suspected UTI. She denies urinary frequency or pain. She has not taken Azo today, though she sometimes uses it. She has a history of latex and banana allergies. Review of Systems Constitutional: Negative for activity change, appetite change, chills, diaphoresis, fatigue and fever. Respiratory: Negative for shortness of breath and wheezing. Cardiovascular: Negative for chest pain and palpitations. Gastrointestinal: Negative for abdominal pain, constipation, diarrhea, nausea and vomiting. Genitourinary: Positive for dysuria, frequency and urgency. Negative for decreased urine volume, difficulty urinating, enuresis, flank pain, genital sores, hematuria, vaginal bleeding, vaginal discharge and vaginal pain. Neurological: Negative for dizziness and headaches. Objective BP 116/86 (BP Site: Right Arm, BP Position: Sitting, BP Cuff Size: Regular Adult) Pulse 101 Temp 36.6 C (97.9 F) Resp 18 Wt 83 kg (183 lb) LMP 10/03/2024 (Approximate) SpO2 98% BMI 31.41 kg/m Physical Exam Constitutional: General: She is not in acute distress. Appearance: Normal appearance. She is not toxic-appearing. HENT: Head: Normocephalic and atraumatic. Cardiovascular: Rate and Rhythm: Regular rhythm. Pulmonary: Effort: Pulmonary effort is normal. Breath sounds: Normal breath sounds. Abdominal: General: Bowel sounds are normal. There is no distension. Palpations: Abdomen is soft. Tenderness: There is no abdominal tenderness. There is no right CVA tenderness or left CVA tenderness. Hernia: No hernia is present. Neurological: General: No focal deficit present. Mental Status: She is alert and oriented to person, place, and time. Mental status is at baseline. {ASSESSMENT/PLAN: 1. Urinary frequency - ICD9: 788.41, ICD10: R35.0 acute - Send urine for culture - Patient education for prevention given - URINALYSIS, DIPSTICK ONLY - CEPHALEXIN 500 MG CAPSULE Onset 2 days ago. Urinalysis shows cloudy urine, negative leukocytes, positive nitrates. No dysuria reported due to spinal reflex. No tenderness reported. - Initiated Keflex TID for 7 days. - Advised to abstain from sexual intercourse for 7 days. - Sent urine sample for culture; results expected in 2-3 days. - Nurse will adjust antibiotics if culture shows resistance. - Encouraged increased fluid intake to prevent dehydration. -- Follow up with PCP in 3-5 days , sooner should any other issues arise. - Patient agreeable plan of care verbalized understanding instruction Recording using xPeerient software for draft documentation of the visit was discussed with the patient/authorized goodwill representative; all questions welcomed and answered. Patient/authorized goodwill representative agreed to proceed Tera Olivier APRN.FANNY documented in this encounter [facility] 01-23-2025 Instructions Luis Enrique Cross APRN.FANNY - 01/23/2025 3:07 PM EDT We discussed your chronic constipation and bowel management: - You have not had a bowel movement in two weeks, and you are experiencing blood and mucus. Due to your spina bifida, enemas have not been effective because of muscle weakness in the area. - I recommend trying the following steps to manage your symptoms before your surgery on January 30: - Use mineral oil enemas (such as Fleet s) to soften the stool. Follow this with a Castile soap enema (1 tablespoon of soap in a liter of water, using 200-300 cc at a time). I will send you detailed instructions for high-volume enemas via [employer]. - Consider using a Hargrove catheter with a balloon to help retain the enema solution. You can purchase this online or at a medical supply store. Inflate the balloon to prevent leakage, administer the enema, and then deflate the balloon before attempting to expel the stool. - Mini enemas are another option, but they may not be as effective due to leakage. - If these methods do not provide relief, you may need manual disimpaction. You can: - Contact your software systems engineer to schedule an in-office procedure. - Schedule an appointment with me for manual disimpaction. I have availability as soon as Monday or Monday. Please call the office to arrange a one-hour appointment if needed. - If symptoms worsen or you feel unwell, consider going to the emergency room for evaluation and treatment. We discussed your upcoming surgery: - Your pre-operative appointment is scheduled for January 29, and your surgery is scheduled for January 30. Please ensure you are cleaned out before the procedure. We discussed your current medications: - Continue taking Colace daily to help soften your stool. - You are currently on Metformin. Please let me know if you experience any side effects, such as nausea or vomiting. Additional instructions: - If you are unable to manage your symptoms at home or if you feel significantly worse, please seek medical attention promptly. - I will send you the enema instructions and recipes via [employer]. Please try these methods and let me know if they are not effective. Please call the office if you need further assistance or to schedule an appointment. High volume colonic enema instructions: 1. Administer 500cc-1000 tap water enema daily using the kangaroo enteral gravity feeding bag and # 28 hargrove catheter. Connect the hargrove to the bag and closed all valves 2. Fill bag with 500cc- 1000 (one pint) tepid water 3. Purge the air out of the tubing 4. Lubricate the tip of the hargrove with Surgilub or K Y jelly, DO NOT USE VASELINE 5. Insert the hargrove in the rectum up to about 6 inches ( about the length of your index finger 7. INFLATE THE BALLOON WITH 15-30 CC OF AIR if you have difficulty holding the water in the rectum, and it leaks around the catheter 8. Sit on the toilet and let the water drip slowly. Turn to water off if you start having abdominal cramps, take deep breath and restart dripping the water after 5 minutes 9. Try to hold the water for 3-5 minutes after you instill the entire amount of water 10.DEFLATE THE BALLOON AND REMOVE FROM RECTUM 11.Sit back on the toilet for the next 30-45 minutes until you complete the evacuation Administer the enema daily about the same time for 3-4 weeks Administer enema every other day for one week than 2-3 x per week. Do not hesitate to contact the office with any questions or concerns Sources of supplies: -A medical supply store in your area -From the WEB: [employer] - tel: ; fax: [phone] [employer]- tel: ; fax: [phone] Supplies: -Kangaroo enteral gravity feeding bag (item # [id number] [employer]); (item number [id number] [employer]) -Hargrove catheter 24 F ( item # 3618 [employer]; item # [id number] [employer]) or 28 ( item # 3623 [employer]; item # [id number] [employer]) F with 30cc balloon -30 mL needless syringe (item # [id number] [employer]) -Water soluble lubricant ( [place] jelly, Surgi Lub) If you need a prescription for supplies, please contact the office. All supplies can be reused and washed with warm soapy water and then allow to air dry. You should change supplies at least every couple or weeks or when it does not look clean after cleaning. documented in this encounter [facility] 01-20-2025 History of Present illness Narrative COLORECTAL SURGERY VIRTUAL VISIT FOLLOW UP 01/20/2025 I have communicated my name and active licensure. The patient's identity and physical location were verified at the time of this visit. Either the patient or their legal goodwill representative has been informed of the risks and benefits of -- and alternatives to -- treatment through a remote evaluation and consents to proceed with the evaluation remotely. I had a virtual visit with Ms. Paulson today for follow up of No diagnosis found.. UPDATED HISTORY: Madhuri Paulson is a 24 year old female who is scheduled for proctocolectomy with end ileostomy. Will takedown a's at the same time. She presents today for virtual visit to discuss surgery. PHYSICAL FINDINGS OF NOTE: General - Normal, healthy, cooperative, in no acute distress Able to interact verbally by video conference Pulmonary - respiratory effort normal Abdominal - Not performed Motor - patient seen sitting with Normal appearing strength and coordination Anorectal exam - Not Performed Medical Decision Making: Assessment Assessment & Diagnosis: Madhuri Paulson is a 24 year old female with spina bifida and neurogenic bowel presents today to discuss surgical planning Data Reviewed: Tests & Documents Reviewed/ordered: Review of prior notes from chart I have independently interpreted: CT Abdomen, CT Pelvis I have discussed Madhuri Paulson's treatment plan and/or results with patient. Treatment plan: Madhuri is scheduled for robotic/laparoscopic assisted total proctocolectomy with permanent end ileostomy. Will takedown alone stoma at the same time. Patient understands that the stoma will be permanent in nature and risks and complications and involving this procedure. We discussed hospital stay and pre and postoperative expectations. She is agreeable with the Recording using xPeerient software for draft documentation of the visit was discussed with the patient/authorized goodwill representative; all questions welcomed and answered. Patient/authorized goodwill representative agreed to proceed Armida Alas DO, FACS, FASCRS quality internship Senior Investigator of Pelvic Floor Surgery Department [place] [address] Risk of morbidity, mortality and/or complications of treatment plan: moderate I spent a total of 25 minutes on the date of the service which included preparing to see the patient, completing clinical documentation, counseling and educating the patient/family/caregiver, communicating results to the patient/family/caregiver, and care coordination (not separately reported). documented in this encounter [facility] 01-20-2025 Note HNO ID: [id number] Author: ARMIDA ALAS DO Service: ? Author Type: Physician Type: Progress Notes Filed: 02/02/2025 13:02 Note Text: COLORECTAL SURGERY VIRTUAL VISIT FOLLOW UP 01/20/2025 I have communicated my name and active licensure. The patient's identity and physical location were verified at the time of this visit. Either the patient or their legal goodwill representative has been informed of the risks and benefits of -- and alternatives to -- treatment through a remote evaluation and consents to proceed with the evaluation remotely. I had a virtual visit with Ms. Paulson today for follow up of No diagnosis found.. UPDATED HISTORY: Madhuri Paulson is a 24 year old female who is scheduled for proctocolectomy with end ileostomy. Will takedown a's at the same time. She presents today for virtual visit to discuss surgery. PHYSICAL FINDINGS OF NOTE: General - Normal, healthy, cooperative, in no acute distress Able to interact verbally by video conference Pulmonary - respiratory effort normal Abdominal - Not performed Motor - patient seen sitting with Normal appearing strength and coordination Anorectal exam - Not Performed Medical Decision Making: Assessment Assessment AND Diagnosis: Madhuri Paulson is a 24 year old female with spina bifida and neurogenic bowel presents today to discuss surgical planning Data Reviewed: Tests AND Documents Reviewed/ordered: Review of prior notes from chart I have independently interpreted: CT Abdomen, CT Pelvis I have discussed Madhuri Paulson's treatment plan and/or results with patient. Treatment plan: Madhuri is scheduled for robotic/laparoscopic assisted total proctocolectomy with permanent end ileostomy. Will takedown alone stoma at the same time. Patient understands that the stoma will be permanent in nature and risks and complications and involving this procedure. We discussed hospital stay and pre and postoperative expectations. She is agreeable with the Recording using ambient [employer] software for draft documentation of the visit was discussed with the patient/authorized goodwill representative; all questions welcomed and answered. Patient/authorized goodwill representative agreed to proceed Armida Alas DO, TRISTIAN, ESTHELA quality internship Senior Investigator of Pelvic Floor Surgery Department [place] [address] Risk of morbidity, mortality and/or complications of treatment plan: moderate I spent a total of 25 minutes on the date of the service which included preparing to see the patient, completing clinical documentation, counseling and educating the patient/family/caregiver, communicating results to the patient/family/caregiver, and care coordination (not separately reported). [facility] 01-14-2025 Telephone encounter Note SPECIALTY CARE COORDINATION FOLLOW-UP NOTE Spoke to Madhuri, Explained that I spoke to Dr. Alas about the surgery and she requests to move the surgery date since she would like to do the surgery robotically. She accepted 02/20 new surgery date and 02/19 for her pre op appointment date. Will completed the [facility] paperwork. She thanked me for the phone call. Alyssa Hewitt RN January 14, 2025 [facility] 01-14-2025 Miscellaneous Notes SPECIALTY CARE COORDINATION FOLLOW-UP NOTE Spoke to Madhuri, Explained that I spoke to Dr. Alas about the surgery and she requests to move the surgery date since she would like to do the surgery robotically. She accepted 02/20 new surgery date and 02/19 for her pre op appointment date. Will completed the [facility] paperwork. She thanked me for the phone call. Alyssa Hewitt RN January 14, 2025 documented in this encounter [facility] 01-14-2025 Telephone encounter Note Asha with [employer] calling and requesting recent OV note for patient, to further process wheelchair order received. 10/25/24 OV note faxed as requested. Diana Boggs RN [facility] 01-14-2025 Miscellaneous Notes Asha with [employer] calling and requesting recent OV note for patient, to further process wheelchair order received. 10/25/24 OV note faxed as requested. Diana Boggs RN documented in this encounter [facility] 01-13-2025 Telephone encounter Note Madhuri Paulson [phone], checking the status of FMLA forms. [facility] Work Phone: 01-13-2025 Miscellaneous Notes Madhuri Walter Thomas [phone], checking the status of FMLA forms. documented in this encounter [facility] 12-28-2024 Note HNO ID: [id number] Author: AIDAN BAINS JR, APRN.SIGNAL INSPECTOR Service: ? Author Type: Nurse Practitioner Type: Progress Notes Filed: 12/28/2024 15:40 Note Text: [facility] Gregory Paulson is a 24 year old female. Patient presents with: Rash: Woke up this am, states got bite by flys last week Rash Rash: - Rash on legs began after being bitten by flies last Monday. - Initially presented as small red dots, non-pruritic and non-painful. - Woke up this morning to find the rash had progressed to golf ball-sized, warm, and pruritic lesions. - Rash is localized to the legs, with no involvement of the back, chest, or abdomen. - Currently taking Keflex for a UTI, with one day remaining in the course. - Recently started taking GoLYTELY for severe constipation, as advised by her software systems engineer. - Took Benadryl Allergy a few days ago. Review of Systems Skin: Positive for rash. Gastrointestinal: (+) constipation Skin: (+) lower extremity rash, (+) lower extremity pruritus, (+) localized warmth Neurological: (+) decreased lower extremity sensation Objective BP 112/75 Pulse 93 Temp 36.6 ?C (97.8 ?F) Resp 18 Wt 78.5 kg (173 lb) LMP 10/03/2024 (Approximate) SpO2 99% BMI 29.70 kg/m? Physical Exam General: No acute distress. CV: Heart sounds normal, regular rhythm. Resp: Lungs clear to auscultation. Abd: Bowel sounds normal, no tenderness to palpation. Skin: Multiple macular elevated patches on legs, rough texture, non-blanching, warm to touch. {1. Rash (R21) 2. Urticaria (L50.9) - Rash on lower extremities with hive-like presentation, warm to touch, and pruritic. Lesions are macular, elevated, rough-textured, and non-blanching on palpation. - Differential diagnosis includes urticaria and possible infection. - Discontinued cephalexin; urine culture from [facility] showed E. coli susceptible to Bactrim. - Initiated Bactrim to cover both UTI and potential skin infection. - Prescribed Medrol Dosepak for anti-inflammatory effect. - Added Zyrtec to manage pruritus. - Advised patient to monitor for worsening symptoms and seek a second opinion if no improvement. Recording using xPeerient software for draft documentation of the visit was discussed with the patient/authorized goodwill representative; all questions welcomed and answered. Patient/authorized goodwill representative agreed to proceed Differential Diagnoses - Cellulitis is more likely for the following reason(s): suggested by HANDP - Contact dermatitis is less likely for the following reason(s): HANDP not suggestive Disposition The patient was discharged. Procedures [facility] 12-28-2024 History of Present illness Narrative [facility] Paulson is a 24 year old female. Patient presents with: Rash: Woke up this am, states got bite by flys last week Rash Rash: - Rash on legs began after being bitten by flies last Monday. - Initially presented as small red dots, non-pruritic and non-painful. - Woke up this morning to find the rash had progressed to golf ball-sized, warm, and pruritic lesions. - Rash is localized to the legs, with no involvement of the back, chest, or abdomen. - Currently taking Keflex for a UTI, with one day remaining in the course. - Recently started taking GoLYTELY for severe constipation, as advised by her software systems engineer. - Took Benadryl Allergy a few days ago. Review of Systems Skin: Positive for rash. Gastrointestinal: (+) constipation Skin: (+) lower extremity rash, (+) lower extremity pruritus, (+) localized warmth Neurological: (+) decreased lower extremity sensation Objective BP 112/75 Pulse 93 Temp 36.6 C (97.8 F) Resp 18 Wt 78.5 kg (173 lb) LMP 10/03/2024 (Approximate) SpO2 99% BMI 29.70 kg/m Physical Exam General: No acute distress. CV: Heart sounds normal, regular rhythm. Resp: Lungs clear to auscultation. Abd: Bowel sounds normal, no tenderness to palpation. Skin: Multiple macular elevated patches on legs, rough texture, non-blanching, warm to touch. {1. Rash (R21) 2. Urticaria (L50.9) - Rash on lower extremities with hive-like presentation, warm to touch, and pruritic. Lesions are macular, elevated, rough-textured, and non-blanching on palpation. - Differential diagnosis includes urticaria and possible infection. - Discontinued cephalexin; urine culture from [facility] showed E. coli susceptible to Bactrim. - Initiated Bactrim to cover both UTI and potential skin infection. - Prescribed Medrol Dosepak for anti-inflammatory effect. - Added Zyrtec to manage pruritus. - Advised patient to monitor for worsening symptoms and seek a second opinion if no improvement. Recording using xPeerient software for draft documentation of the visit was discussed with the patient/authorized goodwill representative; all questions welcomed and answered. Patient/authorized goodwill representative agreed to proceed Differential Diagnoses - Cellulitis is more likely for the following reason(s): suggested by H&P - Contact dermatitis is less likely for the following reason(s): H&P not suggestive Disposition The patient was discharged. Procedures documented in this encounter [facility] 12-28-2024 Instructions Aidan Bains Jr., APRN.FANNY - 12/28/2024 3:24 PM EDT - Start Bactrim as prescribed to treat both your UTI and skin rash; prescription sent to [facility]. - Begin the Medrol Dosepak (6-day steroid taper: 6, 5, 4, 3, 2, 1); prescription sent to [facility]. - Take Zyrtec daily to help relieve itching; prescription sent to [facility]. - Stop taking cephalexin--you do not need to finish the remaining doses. - If the rash does not improve or worsens, consider seeking further evaluation or a second opinion. documented in this encounter [facility] 12-25-2024 Radiology Diagnostic study note [facility] [address] [place] [address] Abdomen Single View MR#: [id number] Acct: [id number] Name: MADHURI PAULSON Rep #: [id number] : 2000 F 24 From: Gabrielle Moyer MD PCP: Dr. Juan Manuel Antonio DO Status: RE G CLI Study:Abdomen Single View Date of Exam: 12/25/24 Exam# [id number] Ordering Dr: Miquel Juárez DO PROCEDURE: ABDOMEN SINGLE VIEW 12/25/2024 REASON FOR EXAM: CONSTIAPTION, POSSIBLE OBSTRUCTION TECHNIQUE: ABDOMEN SINGLE VIEW COMPARISON: None FINDINGS: No bowel obstruction or ileus. Moderate stool burden which may reflect constipation. No large pneumoperitoneum. No acute soft tissue abnormalities. No acute fracture or dislocations. No radiographic foreign body. RAD/Abdomen Single View IMPRESSION: No bowel obstruction or ileus. Moderate stool burden which may reflect constipation. Reading Location: [id number] CC: Dr. Juan Manuel Antonio DO; Colton Juárez DO ~ Bilingual Case Manager: Signed [facility] 12-25-2024 History of Present illness Narrative Images from the original note were not included. [facility] Virtual Follow-up December 25, 2024 Recording using xPeerient software for draft documentation of the visit was discussed with the patient/authorized goodwill representative; all questions welcomed and answered. Patient/authorized goodwill representative agreed to proceed This was conducted as a virtual visit. The patient consented to a virtual visit format. Chief complaint: Chronic constipation HPI: Patient is a 24-year-old female with past medical history significant for spina bifida, cystic fibrosis, presenting for severe medically refractory constipation with associated rectal bleeding and mucus. colace, dulcolax, MOM, mag citrate, castor oil, No Bms, having mucous and blood in toilet. Last BM 2 weeks ago, rock hard, and needs to pull it out Has tried enemas, and nothing helps at all. Has been on Metformin to help with weight loss, for prep for surgery, but is at a plateau. Some n/v. Scheduled surgery 01/02/25. The patient is a 23-year-old female with spina bifida and neurogenic bowel, presenting for evaluation of refractory constipation and ineffective Banda antegrade continence enema (AL) management. She reports having had her Banda AL created at age 13 or 14 at [facility] by Dr. German. She currently irrigates daily with 600 mL of warm water, previously adding Miralax, which she discontinued due to lack of efficacy. She states that the irrigation is not working well, describing frequent periods when nothing is expelled despite irrigation, necessitating manual disimpaction several times per month. She notes that about one to two months ago, she went a full week without a bowel movement, passing only blood, and ultimately required disimpaction of very hard stool. She describes her current output as pure water, brown water, and cannot recall the last time she had a formed bowel movement. She denies any current fecal leakage. The patient reports that her bowel regimen initially worked fairly well, though it was associated with severe pain and frequent syncope during irrigation. Over the past three to four years, her symptoms have significantly worsened, with increasing difficulty achieving effective evacuation. She describes severe abdominal pain localized to the upper abdomen, just below the ribs bilaterally, which has worsened over the past five months. This pain is severe enough that she now sleeps sitting up and can hardly eat any food, with associated abdominal distension to the point of appearing nine months . She also reports frequent episodes of severe pain resulting in vomiting. She states that the irrigation process takes at least one hour daily and makes her feel ill each time. She expresses that these symptoms have significantly impacted her quality of life, stating she is tired of having to go to the ER for manual disimpaction and that the chronic pain and ineffective bowel management have been very difficult to endure. Regarding weight, she reports gaining 15-20 pounds over the past three and a half years following brain surgery, attributed to inability to exercise. She began metformin in July for weight loss and has since lost approximately 20-30 pounds, with her current weight around 175 pounds (down from a maximum of 196 pounds). She notes that her weight is now close to what it was in high school. Patient has a Banda antegrade continence enema (AL) stoma created in high school, currently irrigating with 600 mL of warm water daily. Reports ineffective bowel movements, requiring manual disimpaction several times a month. Recent CT scan shows significant fecal retention. Previous use of Miralax was ineffective. Symptoms have worsened over the past 3-4 years, with reports of passing only brown water and no solid bowel movements. No current fecal leakage. - Initiate use of Castile soap, senna, Dulcolax, and glycerin in the AL stoma to improve bowel evacuation. - Educated patient on the potential need for a permanent ileostomy if current interventions fail. - Nurse to send educational booklet on ileostomy. - Schedule follow-up appointment to assess progress and discuss surgical options if necessary. ROS:Ears/Nose/Mouth/Throat: (+) sneezing Gastrointestinal: (+) constipation, (+) hematochezia, (+) mucus in stool, (+) vomiting Skin: (+) facial erythema Physical Exam: General: awake, alert, no acute distress Abdominal: non distended Assessment Medical Decision Making: Assessment & Diagnosis: Madhuri Paulson is a 24 year old female with cystic fibrosis presenting for medically refractory chronic constipation Data Reviewed: Tests & Documents Reviewed/ordered: Review of prior notes from Dr. Vasquez Alcala have discussed Madhuri Paulson's treatment plan and/or results with patient. Treatment plan: 1. Spina bifida, unspecified hydrocephalus presence, unspecified spinal region (HCC) (Q05.9) Patient has spina bifida, which contributes to weakened rectal muscles, complicating the retention of enemas and exacerbating chronic constipation. 2. Cystic fibrosis (HCC) (E84.9) 3. Chronic constipation (K59.09) Severe constipation with no bowel movements for approximately two weeks, accompanied by hematochezia and mucus discharge. Current management includes Colace, Dulcolax, and castor oil, with limited efficacy. Enemas have been ineffective due to inability to retain them. - Educated patient on the use of mineral oil enemas and high-volume enemas with a Hargrove catheter to improve retention and soften stool. - Provided instructions for preparing and administering high-volume enemas using Castile soap. - Scheduled for ileostomy on 01/30, with pre-op on 01/29. - Advised patient to contact software systems engineer or present to the emergency room if symptoms worsen or if unable to achieve bowel movement with home treatments. - Offered to schedule an in-office manual disimpaction if necessary, with availability as soon as Monday or Monday. - Will send detailed instructions via [employer]. Risk of morbidity, mortality and/or complications of treatment plan: low LUIS ENRIQUE CROSS APRN.CNP [facility] [place] [facility] [address] [place] [address] documented in this encounter [facility] 12-25-2024 Note HNO ID: [id number] Author: LUIS ENRIQUE CROSS APRN.FANNY Service: ? Author Type: Nurse Practitioner Type: Progress Notes Filed: 01/23/2025 15:07 Note Text: [facility] Virtual Follow-up December 25, 2024 Recording using xPeerient software for draft documentation of the visit was discussed with the patient/authorized goodwill representative; all questions welcomed and answered. Patient/authorized goodwill representative agreed to proceed This was conducted as a virtual visit. The patient consented to a virtual visit format. Chief complaint: Chronic constipation HPI: Patient is a 24-year-old female with past medical history significant for spina bifida, cystic fibrosis, presenting for severe medically refractory constipation with associated rectal bleeding and mucus. colace, dulcolax, MOM, mag citrate, castor oil, No Bms, having mucous and blood in toilet. Last BM 2 weeks ago, rock hard, and needs to pull it out Has tried enemas, and nothing helps at all. Has been on Metformin to help with weight loss, for prep for surgery, but is at a plateau. Some n/v. Scheduled surgery 01/02/25. The patient is a 23-year-old female with spina bifida and neurogenic bowel, presenting for evaluation of refractory constipation and ineffective Banda antegrade continence enema (AL) management. She reports having had her Banda AL created at age 13 or 14 at [facility] by Dr. German. She currently irrigates daily with 600 mL of warm water, previously adding Miralax, which she discontinued due to lack of efficacy. She states that the irrigation is not working well, describing frequent periods when nothing is expelled despite irrigation, necessitating manual disimpaction several times per month. She notes that about one to two months ago, she went a full week without a bowel movement, passing only blood, and ultimately required disimpaction of very hard stool. She describes her current output as ?pure water, brown water,? and cannot recall the last time she had a formed bowel movement. She denies any current fecal leakage. The patient reports that her bowel regimen initially worked ?fairly well,? though it was associated with severe pain and frequent syncope during irrigation. Over the past three to four years, her symptoms have significantly worsened, with increasing difficulty achieving effective evacuation. She describes severe abdominal pain localized to the upper abdomen, just below the ribs bilaterally, which has worsened over the past five months. This pain is severe enough that she now sleeps sitting up and can ?hardly eat any food,? with associated abdominal distension to the point of appearing ?nine months .? She also reports frequent episodes of severe pain resulting in vomiting. She states that the irrigation process takes at least one hour daily and makes her feel ill each time. She expresses that these symptoms have significantly impacted her quality of life, stating she is ?tired of having to go to the ER? for manual disimpaction and that the chronic pain and ineffective bowel management have been very difficult to endure. Regarding weight, she reports gaining 15-20 pounds over the past three and a half years following brain surgery, attributed to inability to exercise. She began metformin in July for weight loss and has since lost approximately 20-30 pounds, with her current weight around 175 pounds (down from a maximum of 196 pounds). She notes that her weight is now close to what it was in high school. Patient has a Banda antegrade continence enema (AL) stoma created in high school, currently irrigating with 600 mL of warm water daily. Reports ineffective bowel movements, requiring manual disimpaction several times a month. Recent CT scan shows significant fecal retention. Previous use of Miralax was ineffective. Symptoms have worsened over the past 3-4 years, with reports of passing only brown water and no solid bowel movements. No current fecal leakage. - Initiate use of Castile soap, senna, Dulcolax, and glycerin in the AL stoma to improve bowel evacuation. - Educated patient on the potential need for a permanent ileostomy if current interventions fail. - Nurse to send educational booklet on ileostomy. - Schedule follow-up appointment to assess progress and discuss surgical options if necessary. ROS:Ears/Nose/Mouth/Throat: (+) sneezing Gastrointestinal: (+) constipation, (+) hematochezia, (+) mucus in stool, (+) vomiting Skin: (+) facial erythema Physical Exam: General: awake, alert, no acute distress Abdominal: non distended Assessment Medical Decision Making: Assessment AND Diagnosis: Madhuri Paulson is a 24 year old female with cystic fibrosis presenting for medically refractory chronic constipation Data Reviewed: Tests AND Documents Reviewed/ordered: Review of prior notes from Dr. Alas I have discussed Madhuri Walter (more content not included)... [facility] 12-23-2024 Telephone encounter Note Madhuri Paulson [phone], experiencing constipation for 2 weeks. [facility] Work Phone: 12-23-2024 Miscellaneous Notes Madhuri Paulson [phone], experiencing constipation for 2 weeks. documented in this encounter [facility] 12-23-2024 Telephone encounter Note Replied to [employer] message to let Madhuri Paulson know that urine culture confirmed sensitivity to Keflex. Tali Kim APRN.FANNY [facility] 12-23-2024 Miscellaneous Notes Replied to [employer] message to let Madhuri Paulson know that urine culture confirmed sensitivity to Keflex. Tali Kim APRN.CNP Tried calling Madhuri Paulson to confirm preferred pharmacy, but call went straight to voicemail. Left voicemail, advising that I am sending prescription for Keflex to [facility] based on last positive culture from 10/14/2024. Advised of sterilization technician urologist for urgent questions. Tali Kim APRN.CNP ----- Message from Shaun Jacobo sent at 12/20/2024 3:00 PM EDT ----- Regarding: UTI symptoms Contact: Madhuri has some UTI symptoms and dropped off a UC She has frequency and her urine has a strong odor. Requesting an abx before the weekend Please advise and thank you, Shaun documented in this encounter [facility] 12-20-2024 Telephone encounter Note Tried calling Madhuri Paulson to confirm preferred pharmacy, but call went straight to voicemail. Left voicemail, advising that I am sending prescription for Kef[facility] to [facility] based on last positive culture from 10/14/2024. Advised of sterilization technician urologist for urgent questions. Tali Kim APRN.CNP [facility] 12-20-2024 Telephone encounter Note ----- Message from Shaun Donnell sent at 12/20/2024 3:00 PM EDT ----- Regarding: UTI symptoms Contact: Madhuri has some UTI symptoms and dropped off a UC She has frequency and her urine has a strong odor. Requesting an abx before the weekend Please advise and thank you, Shaun [facility] 12-03-2024 Telephone encounter Note SPECIALTY CARE COORDINATION FOLLOW-UP NOTE Unable to reach Madhuri. Left a voice message that I was returning her phone call to schedule surgery. Asked that she call back or send MyChart message of her decision. Alyssa Hewitt RN December 03, 2024 [facility] 12-03-2024 Miscellaneous Notes SPECIALTY CARE COORDINATION FOLLOW-UP NOTE Unable to reach Madhuri. Left a voice message that I was returning her phone call to schedule surgery. Asked that she call back or send MyChart message of her decision. Alyssa Hewitt RN December 03, 2024 documented in this encounter [facility] 12-02-2024 Telephone encounter Note Madhuri Paulson [phone], called to schedule surgery. [facility] Work Phone: 12-02-2024 Miscellaneous Notes Madhuri Paulson [phone], called to schedule surgery. documented in this encounter [facility] 11-29-2024 Telephone encounter Note SPECIALTY CARE COORDINATION FOLLOW-UP NOTE Spoke to Madhuri. Discussed her virtual appointment with Dr. Alas. She will be calling her insurance because she losing her insurance at the end of December since she is turning 24 years old. Explained that when she gets resolution with insurance to call back to confirm a surgery date. Also explained that once she has her virtual appointment with Dr. Alas, Dr. Alas will confirm the surgery date. She acknowledged and verbalized understanding. ' She thanked me for the phone call. Alyssa Hewitt RN November 29, 2024 [facility] 11-29-2024 Miscellaneous Notes SPECIALTY CARE COORDINATION FOLLOW-UP NOTE Spoke to Madhuri. Discussed her virtual appointment with Dr. Alas. She will be calling her insurance because she losing her insurance at the end of December since she is turning 24 years old. Explained that when she gets resolution with insurance to call back to confirm a surgery date. Also explained that once she has her virtual appointment with Dr. Alas, Dr. Alas will confirm the surgery date. She acknowledged and verbalized understanding. ' She thanked me for the phone call. Alyssa Hewitt RN November 29, 2024 documented in this encounter [facility] 11-28-2024 Telephone encounter Note SPECIALTY CARE COORDINATION FOLLOW-UP NOTE Unable to reach Madhuri. Left a voice message in regards to scheduling surgery with Dr. Alas. Dr. Alas is looking at end of December -mid January but needs an appointment to discuss progress and surgical options. Will send a MyChart message. Alyssa Hewitt RN November 28, 2024 [facility] 11-28-2024 Miscellaneous Notes SPECIALTY CARE COORDINATION FOLLOW-UP NOTE Unable to reach Madhuri. Left a voice message in regards to scheduling surgery with Dr. Alas. Dr. Alas is looking at end of December -mid January but needs an appointment to discuss progress and surgical options. Will send a [employer] message. Alyssa Hewitt RN November 28, 2024 documented in this encounter [facility] 11-20-2024 History and physical note [facility] NEW VIRTUAL VISIT 11/20/2024 I have communicated my name and active licensure. The patient's identity and physical location were verified at the time of this visit. Either the patient or their legal goodwill representative has been informed of the risks and benefits of -- and alternatives to -- treatment through a remote evaluation and consents to proceed with the evaluation remotely. I had a virtual visit with Ms. Paulson today. Her local doctors have given her a diagnosis of No diagnosis found.. HISTORY: HPI: The patient is a 23-year-old female with spina bifida and neurogenic bowel, presenting for evaluation of refractory constipation and ineffective Banda antegrade continence enema (AL) management. She reports having had her Banda AL created at age 13 or 14 at [facility] by Dr. German. She currently irrigates daily with 600 mL of warm water, previously adding Miralax, which she discontinued due to lack of efficacy. She states that the irrigation is not working well, describing frequent periods when nothing is expelled despite irrigation, necessitating manual disimpaction several times per month. She notes that about one to two months ago, she went a full week without a bowel movement, passing only blood, and ultimately required disimpaction of very hard stool. She describes her current output as pure water, brown water, and cannot recall the last time she had a formed bowel movement. She denies any current fecal leakage. The patient reports that her bowel regimen initially worked fairly well, though it was associated with severe pain and frequent syncope during irrigation. Over the past three to four years, her symptoms have significantly worsened, with increasing difficulty achieving effective evacuation. She describes severe abdominal pain localized to the upper abdomen, just below the ribs bilaterally, which has worsened over the past five months. This pain is severe enough that she now sleeps sitting up and can hardly eat any food, with associated abdominal distension to the point of appearing nine months . She also reports frequent episodes of severe pain resulting in vomiting. She states that the irrigation process takes at least one hour daily and makes her feel ill each time. She expresses that these symptoms have significantly impacted her quality of life, stating she is tired of having to go to the ER for manual disimpaction and that the chronic pain and ineffective bowel management have been very difficult to endure. Regarding weight, she reports gaining 15-20 pounds over the past three and a half years following brain surgery, attributed to inability to exercise. She began metformin in July for weight loss and has since lost approximately 20-30 pounds, with her current weight around 175 pounds (down from a maximum of 196 pounds). She notes that her weight is now close to what it was in high school. She also reports a history of spina bifida-related neurogenic bladder and has experienced six or seven E. coli urinary tract infections this year. She has undergone extensive testing over the past five months due to worsening symptoms. CT Scan with Contrast: Banda channel in appropriate position; large stool burden noted. Urine Culture: Escherichia coli isolated in multiple instances. PAST MEDICAL HISTORY Diagnosis Date Acute pain of right shoulder 01/21/2019 Chiari malformation type I (HCC) Lymphedema Menarche 09/2011 PMH - PAST MEDICAL HISTORY OF spina bifida PMH - PAST MEDICAL HISTORY OF 01/07/2004 color vision-normal PMH - PAST MEDICAL HISTORY OF bilateral club feet PMH - PAST MEDICAL HISTORY OF broken leg in 10/09 PAST SURGICAL HISTORY Procedure Laterality Date AFP, OPEN SPINA BIFIDA ([facility]) Spina Bifida surgery during infancy APPENDICONEOVESICOSTOMY 06/20/2016 APPENDICONEOVESICOSTOMY 12/2016 COLONOSCOPY FLX DX W/COLLJ SPEC WHEN PFRMD 10/24/2017 Colonoscopy KNEE RIGHT OP SURGERY 10/2012 right knee PAST SURGICAL HISTORY OF Bilateral Foot reconstruction x 4-5 times PAST SURGICAL HISTORY OF laser surgery on birthmark PAST SURGICAL HISTORY OF 10/2010 right knee surgery TONSILLECTOMY & ADENOIDECTOMY Current Outpatient Medications Medication Sig Dispense Refill ALPRAZolam (XANAX) 0.25 mg tablet 0.25 MG ORALLY TWICE A DAY amitriptyline (ELAVIL) 10 mg tablet Take 10 mg by mouth daily at bedtime. fluconazole (DIFLUCAN) 150 mg tablet PLEASE SEE ATTACHED FOR DETAILED DIRECTIONS hyoscyamine (LEVSIN) 0.125 mg tablet 1 TABLET ORALLY 2 TO 4 TIMES PER DAY NEEDED FOR DYSPEPSIA Methenamine Hippurate (HIPREX) 1 gram tablet Take 1 tablet by mouth two times a day. 60 tablet 5 Phentermine HCl 37.5 mg tablet Take 1 tablet by mouth every afternoon. Drospirenone-Ethinyl Estradiol (PHILIP, 28,) 3-0.02 mg per tablet Take 1 tablet by mouth once daily. Ok to skip placebo week and start on new pack of pills 112 tablet 3 metFORMIN (GLUCOPHAGE) 500 mg tablet Take 1 tablet by mouth daily with dinner. 90 tablet 1 Ascorbic Acid 1,000 mg tablet Take 1 tablet by mouth once daily. albuterol HFA (PROVENTIL HFA, VENTOLIN HFA) 90 mcg/actuation inhaler Inhale 2 Puffs as instructed. Catheter (FEMALE CATHETER) 14 Fr misc 14 Chilean, 16 inch female straight tip intermittent catheter, to use q6 hrs prn urinary retention 100 Each 1 B.animalis,bifid,infantis,long (PROBIOTIC 4X ORAL) Take 1 capsule by mouth once daily. polyethylene glycol 3350 (MIRALAX) 17 gram/dose powder One quarter capful added to 800 cc of water and then flushed through the Banda stoma No current facility-administered medications for this visit. REVIEW OF SYSTEMS: Constitutional: (+) weight loss Gastrointestinal: (+) constipation, (+) abdominal pain, (+) bloating, (+) nausea, (+) vomiting, (-) fecal incontinence PHYSICAL FINDINGS OF NOTE: General - Normal, healthy, cooperative, in no acute distress Able to interact verbally by video conference Pulmonary - respiratory effort normal Abdominal - Not performed Motor - patient seen sitting with Normal appearing strength and coordination Anorectal exam - Not Performed Medical Decision Making: Assessment Assessment & Diagnosis: Madhuri Paulson is a 23 year old female with spina bifida and neurogenic bowel , current banda in place Data Reviewed: Tests & Documents Reviewed/ordered: Review of prior notes from chart I have independently interpreted: CT Abdomen, CT Pelvis I have discussed Madhuri Paulson's treatment plan and/or results with patient . Treatment plan: 1. Spina bifida without hydrocephalus, unspecified spinal region (HCC) (Q05.9) Patient has a history of spina bifida, leading to neurogenic bowel. No hydrocephalus present. 2. Neurogenic bowel (K59.2) Chronic constipation (K59.09) Patient has a Banda antegrade continence enema (AL) stoma created in high school, currently irrigating with 600 mL of warm water daily. Reports ineffective bowel movements, requiring manual disimpaction several times a month. Recent CT scan shows significant fecal retention. Previous use of Miralax was ineffective. Symptoms have worsened over the past 3-4 years, with reports of passing only brown water and no solid bowel movements. No current fecal leakage. - Initiate use of Castile soap, senna, Dulcolax, and glycerin in the AL stoma to improve bowel evacuation. - Educated patient on the potential need for a permanent ileostomy if current interventions fail. - Nurse to send educational booklet on ileostomy. - Schedule follow-up appointment to assess progress and discuss surgical options if necessary. 3. Class 1 obesity with body mass index (BMI) of 30.0 to 30.9 in adult, unspecified obesity type, unspecified whether serious comorbidity present (E66.811) Patient has been on metformin since July for weight loss and has lost approximately 20-30 pounds, currently weighing around 175 lbs. Previous weight was 196 lbs. - Continue metformin therapy. - Encourage further weight loss of 10-15 pounds to improve surgical outcomes if ileostomy is needed. - Maintain physical activity as tolerated. Leaning toward ileostomy, will try additional remedies for AL and if no success the patient is likely ready for an ileostomy. Will plan for total proctocolectomy with permanent end ileostomy. We discussed weight loss in preparation for surgery. Will communicate with Dr. Gee to coordinate any necessary intervention for neurogenic bladder Armida Alas DO Pelvic Floor Department of Colorectal Surgery Risk of morbidity, mortality and/or complications of treatment plan: moderate I spent a total of 45 minutes on the date of the service which included preparing to see the patient, completing clinical documentation, obtaining and/or reviewing separately obtained history, communicating with other HCPs (not separately reported), communicating results to the patient/family/caregiver, and care coordination (not separately reported). [facility] 11-20-2024 History and physical note COLORECTAL SURGERY NEW VIRTUAL VISIT 11/20/2024 I have communicated my name and active licensure. The patient's identity and physical location were verified at the time of this visit. Either the patient or their legal goodwill representative has been informed of the risks and benefits of -- and alternatives to -- treatment through a remote evaluation and consents to proceed with the evaluation remotely. I had a virtual visit with Ms. Paulson today. Her local doctors have given her a diagnosis of No diagnosis found.. HISTORY: HPI: The patient is a 23-year-old female with spina bifida and neurogenic bowel, presenting for evaluation of refractory constipation and ineffective Banda antegrade continence enema (AL) management. She reports having had her Banda AL created at age 13 or 14 at [facility] by Dr. German. She currently irrigates daily with 600 mL of warm water, previously adding Miralax, which she discontinued due to lack of efficacy. She states that the irrigation is not working well, describing frequent periods when nothing is expelled despite irrigation, necessitating manual disimpaction several times per month. She notes that about one to two months ago, she went a full week without a bowel movement, passing only blood, and ultimately required disimpaction of very hard stool. She describes her current output as pure water, brown water, and cannot recall the last time she had a formed bowel movement. She denies any current fecal leakage. The patient reports that her bowel regimen initially worked fairly well, though it was associated with severe pain and frequent syncope during irrigation. Over the past three to four years, her symptoms have significantly worsened, with increasing difficulty achieving effective evacuation. She describes severe abdominal pain localized to the upper abdomen, just below the ribs bilaterally, which has worsened over the past five months. This pain is severe enough that she now sleeps sitting up and can hardly eat any food, with associated abdominal distension to the point of appearing nine months . She also reports frequent episodes of severe pain resulting in vomiting. She states that the irrigation process takes at least one hour daily and makes her feel ill each time. She expresses that these symptoms have significantly impacted her quality of life, stating she is tired of having to go to the ER for manual disimpaction and that the chronic pain and ineffective bowel management have been very difficult to endure. Regarding weight, she reports gaining 15-20 pounds over the past three and a half years following brain surgery, attributed to inability to exercise. She began metformin in July for weight loss and has since lost approximately 20-30 pounds, with her current weight around 175 pounds (down from a maximum of 196 pounds). She notes that her weight is now close to what it was in high school. She also reports a history of spina bifida-related neurogenic bladder and has experienced six or seven E. coli urinary tract infections this year. She has undergone extensive testing over the past five months due to worsening symptoms. CT Scan with Contrast: Banda channel in appropriate position; large stool burden noted. Urine Culture: Escherichia coli isolated in multiple instances. PAST MEDICAL HISTORY Diagnosis Date Acute pain of right shoulder 01/21/2019 Chiari malformation type I (HCC) Lymphedema Menarche 09/2011 PMH - PAST MEDICAL HISTORY OF spina bifida PMH - PAST MEDICAL HISTORY OF 01/07/2004 color vision-normal PMH - PAST MEDICAL HISTORY OF bilateral club feet PMH - PAST MEDICAL HISTORY OF broken leg in 10/09 PAST SURGICAL HISTORY Procedure Laterality Date AFP, OPEN SPINA BIFIDA ([facility]) Spina Bifida surgery during infancy APPENDICONEOVESICOSTOMY 06/20/2016 APPENDICONEOVESICOSTOMY 12/2016 COLONOSCOPY FLX DX W/COLLJ SPEC WHEN PFRMD 10/24/2017 Colonoscopy KNEE RIGHT OP SURGERY 10/2012 right knee PAST SURGICAL HISTORY OF Bilateral Foot reconstruction x 4-5 times PAST SURGICAL HISTORY OF laser surgery on birthmark PAST SURGICAL HISTORY OF 10/2010 right knee surgery TONSILLECTOMY & ADENOIDECTOMY <AGE 10 Current Outpatient Medications Medication Sig Dispense Refill ALPRAZolam (XANAX) 0.25 mg tablet 0.25 MG ORALLY TWICE A DAY amitriptyline (ELAVIL) 10 mg tablet Take 10 mg by mouth daily at bedtime. fluconazole (DIFLUCAN) 150 mg tablet PLEASE SEE ATTACHED FOR DETAILED DIRECTIONS hyoscyamine (LEVSIN) 0.125 mg tablet 1 TABLET ORALLY 2 TO 4 TIMES PER DAY NEEDED FOR DYSPEPSIA Methenamine Hippurate (HIPREX) 1 gram tablet Take 1 tablet by mouth two times a day. 60 tablet 5 Phentermine HCl 37.5 mg tablet Take 1 tablet by mouth every afternoon. Drospirenone-Ethinyl Estradiol (PHILIP, 28,) 3-0.02 mg per tablet Take 1 tablet by mouth once daily. Ok to skip placebo week and start on new pack of pills 112 tablet 3 metFORMIN (GLUCOPHAGE) 500 mg tablet Take 1 tablet by mouth daily with dinner. 90 tablet 1 Ascorbic Acid 1,000 mg tablet Take 1 tablet by mouth once daily. albuterol HFA (PROVENTIL HFA, VENTOLIN HFA) 90 mcg/actuation inhaler Inhale 2 Puffs as instructed. Catheter (FEMALE CATHETER) 14 Fr misc 14 [place]an, 16 inch female straight tip intermittent catheter, to use q6 hrs prn urinary retention 100 Each 1 B.animalis,bifid,infantis,long (PROBIOTIC 4X ORAL) Take 1 capsule by mouth once daily. polyethylene glycol 3350 (MIRALAX) 17 gram/dose powder One quarter capful added to 800 cc of water and then flushed through the Banda stoma No current facility-administered medications for this visit. REVIEW OF SYSTEMS: Constitutional: (+) weight loss Gastrointestinal: (+) constipation, (+) abdominal pain, (+) bloating, (+) nausea, (+) vomiting, (-) fecal incontinence PHYSICAL FINDINGS OF NOTE: General - Normal, healthy, cooperative, in no acute distress Able to interact verbally by video conference Pulmonary - respiratory effort normal Abdominal - Not performed Motor - patient seen sitting with Normal appearing strength and coordination Anorectal exam - Not Performed Medical Decision Making: Assessment Assessment & Diagnosis: Madhuri Paulson is a 23 year old female with spina bifida and neurogenic bowel , current banda in place Data Reviewed: Tests & Documents Reviewed/ordered: Review of prior notes from chart I have independently interpreted: CT Abdomen, CT Pelvis I have discussed Madhuri Paulson's treatment plan and/or results with patient . Treatment plan: 1. Spina bifida without hydrocephalus, unspecified spinal region (HCC) (Q05.9) Patient has a history of spina bifida, leading to neurogenic bowel. No hydrocephalus present. 2. Neurogenic bowel (K59.2) Chronic constipation (K59.09) Patient has a Banda antegrade continence enema (AL) stoma created in high school, currently irrigating with 600 mL of warm water daily. Reports ineffective bowel movements, requiring manual disimpaction several times a month. Recent CT scan shows significant fecal retention. Previous use of Miralax was ineffective. Symptoms have worsened over the past 3-4 years, with reports of passing only brown water and no solid bowel movements. No current fecal leakage. - Initiate use of Castile soap, senna, Dulcolax, and glycerin in the AL stoma to improve bowel evacuation. - Educated patient on the potential need for a permanent ileostomy if current interventions fail. - Nurse to send educational booklet on ileostomy. - Schedule follow-up appointment to assess progress and discuss surgical options if necessary. 3. Class 1 obesity with body mass index (BMI) of 30.0 to 30.9 in adult, unspecified obesity type, unspecified whether serious comorbidity present (E66.811) Patient has been on metformin since July for weight loss and has lost approximately 20-30 pounds, currently weighing around 175 lbs. Previous weight was 196 lbs. - Continue metformin therapy. - Encourage further weight loss of 10-15 pounds to improve surgical outcomes if ileostomy is needed. - Maintain physical activity as tolerated. Leaning toward ileostomy, will try additional remedies for AL and if no success the patient is likely ready for an ileostomy. Will plan for total proctocolectomy with permanent end ileostomy. We discussed weight loss in preparation for surgery. Will communicate with Dr. Gee to coordinate any necessary intervention for neurogenic bladder Armida Alas DO Pelvic Floor Department of Colorectal Surgery Risk of morbidity, mortality and/or complications of treatment plan: moderate I spent a total of 45 minutes on the date of the service which included preparing to see the patient, completing clinical documentation, obtaining and/or reviewing separately obtained history, communicating with other HCPs (not separately reported), communicating results to the patient/family/caregiver, and care coordination (not separately reported). documented in this encounter [facility] 11-01-2024 Telephone encounter Note Pt returned call and given provider's message below with verbalized understanding. [facility] 11-01-2024 Miscellaneous Notes Pt returned call and given provider's message below with verbalized understanding. Left message to return call Shannon Acharya MA Please inform patient that her Celiac testing is negative Juan Manuel Antonio DO documented in this encounter [facility] 11-01-2024 Telephone encounter Note Left message to return call Shannon Acharya MA [facility] 10-30-2024 Telephone encounter Note Please inform patient that her Celiac testing is negative Juan Manuel Antonio DO [facility] 10-25-2024 Note HNO ID: [id number] Author: JAUN MANUEL ANTONIO DO Service: ? Author Type: Physician Type: Progress Notes Filed: 10/25/2024 17:38 Note Text: CC: Madhuri Paulson is a 23 year old female who presents to the office for follow up HPI: She states that for the last few months she has really been struggling with some new and recurrent health issues, that are impacting her daily life and her ability to eat well and maintain good health. She steats that she Saw Urologist recently since has had 7 different UTIs in 2024 already. She states that the physician feels related to the constipation/diarrhea due to stool irregularity since all the UTIs are due to E coli. She would like her to see a colorectal specialist since she is concerned it is due to adynamic colon Having upper abdominal pain, worse after eating and worse at night. Constant symptoms. She has a history of a banda stoma and instills 600 cc of warm water in this for use. She is struggling to eat because of her abdominal pain and b/l upper abdominal pressure that she is getting Has been seen by Dr. Franck Couch, had CT abd/pelvis with contrast as well as many labs which were all overall normal appearing Spina bifida specialist feels that she needs to see colorectal surgeon. Is waiting for this appointment but hasn't heard when this will be- hasn't been called on appt yet. PAST MEDICAL HISTORY Diagnosis Date Acute pain of right shoulder 01/21/2019 Chiari malformation type I (HCC) Lymphedema Menarche 09/2011 PMH - PAST MEDICAL HISTORY OF spina bifida PMH - PAST MEDICAL HISTORY OF 01/07/2004 color vision-normal PMH - PAST MEDICAL HISTORY OF bilateral club feet PMH - PAST MEDICAL HISTORY OF broken leg in 10/09 PAST SURGICAL HISTORY Procedure Laterality Date AFP, OPEN SPINA BIFIDA ([facility]) Spina Bifida surgery during infancy APPENDICONEOVESICOSTOMY 06/20/2016 APPENDICONEOVESICOSTOMY 12/2016 COLONOSCOPY FLX DX W/COLLJ SPEC WHEN PFRMD 10/24/2017 Colonoscopy KNEE RIGHT OP SURGERY 10/2012 right knee PAST SURGICAL HISTORY OF Bilateral Foot reconstruction x 4-5 times PAST SURGICAL HISTORY OF laser surgery on birthmark PAST SURGICAL HISTORY OF 10/2010 right knee surgery TONSILLECTOMY AND ADENOIDECTOMY Current Outpatient Medications Medication Sig ALPRAZolam (XANAX) 0.25 mg tablet 0.25 MG ORALLY TWICE A DAY amitriptyline (ELAVIL) 10 mg tablet Take 10 mg by mouth daily at bedtime. fluconazole (DIFLUCAN) 150 mg tablet PLEASE SEE ATTACHED FOR DETAILED DIRECTIONS hyoscyamine (LEVSIN) 0.125 mg tablet 1 TABLET ORALLY 2 TO 4 TIMES PER DAY NEEDED FOR DYSPEPSIA Methenamine Hippurate (HIPREX) 1 gram tablet Take 1 tablet by mouth two times a day. Phentermine HCl 37.5 mg tablet Take 1 tablet by mouth every afternoon. Drospirenone-Ethinyl Estradiol (PHILIP, 28,) 3-0.02 mg per tablet Take 1 tablet by mouth once daily. Ok to skip placebo week and start on new pack of pills metFORMIN (GLUCOPHAGE) 500 mg tablet Take 1 tablet by mouth daily with dinner. Ascorbic Acid 1,000 mg tablet Take 1 tablet by mouth once daily. albuterol HFA (PROVENTIL HFA, VENTOLIN HFA) 90 mcg/actuation inhaler Inhale 2 Puffs as instructed. Catheter (FEMALE CATHETER) 14 Fr misc 14 [place]an, 16 inch female straight tip intermittent catheter, to use q6 hrs prn urinary retention B.animalis,bifid,infantis,long (PROBIOTIC 4X ORAL) Take 1 capsule by mouth once daily. polyethylene glycol 3350 (MIRALAX) 17 gram/dose powder One quarter capful added to 800 cc of water and then flushed through the Banda stoma No current facility-administered medications for this visit. ALLERGIES Allergen Reactions Banana Unknown Per diagnosis Latex Unknown Per diagnosis Social History Tobacco Use Smoking status: Never Passive exposure: Never Smokeless tobacco: Never Tobacco comments: no smokers in home Vaping Use Vaping status: Never Used Substance Use Topics Alcohol use: Yes Comment: Not weekly Drug use: Never ROS: See HIP PE: BP 124/80 Pulse 76 Temp (Src) 97.3 (Right Tympanic) Resp 16 Wt 177 lb (80.3kg) LMP 10/03/2024 Gen: AANDOX3, tearful in the office today HEENT: PERRLA, EOMs intact b/l, nares without drainage, pharynx without erythema, exudate, lesions, or drainage. Uvula midline. Neck: No LAD, no thyromegaly, no meningismus. CV: RRR, no murmur Lungs: CTA b/l, no wheezing Skin: No rashes, lesions, or wounds on exposed skin. Impaired gait secondary to spina bifida Abd: + RUQ and + LUQ abd pain without obvious mass present, + hypoactive bowel sounds ASSESSMENT/PLAN: 1. Left upper quadrant abdominal pain - ICD9: 789.02, ICD10: R10.12 (primary diagnosis) Concerns that symptoms are due to adynamic colon. Needs to see colorectal specialist in this [place]. Likely secondary to her adynamic colon which is secondary to her spina bifida and is also contributing to her recurrent UTI and morbidity - P (more content not included)... [facility] 04-22-2025 Telephone encounter Note Patient was prescribed cipro. Culture showed sensitivity to both cipro and macrobid. Patient was seen for f/u yesterday by urology. Josef Monaco PA-C [facility] Work Phone: 10-22-2024 Miscellaneous Notes Patient was prescribed cipro. Culture showed sensitivity to both cipro and macrobid. Patient was seen for f/u yesterday by urology. Josef Monaco PA-C documented in this encounter [facility] 10-21-2024 Telephone encounter Note Summary: catheter orders [facility] attached to [facility] 10/21/24 note Faxed office note and catheter order for 14F gc glide female length to [facility]. A copy of both was sent to patient through [employer] for her records. Naveen Moya RN [facility] Work Phone: 10-21-2024 Miscellaneous Notes Summary: catheter orders [facility] attached to [facility] 10/21/24 note Faxed office note and catheter order for 14F gc glide female length to [facility]. A copy of both was sent to patient through [employer] for her records. Naveen Moya RN documented in this encounter [facility] 10-21-2024 Note HNO ID: [id number] Author: NAVEEN MOYA RN Service: ? Author Type: Physician Type: Progress Notes Filed: 10/21/2024 11:57 Note Text: [facility] [place] NEW PATIENT HISTORY AND PHYSICAL EXAM PATIENT INFO: Madhuri Paulson 23 year old Self-referred HISTORY CHIEF COMPLAINT: The patient is a 23-year-old female with a history of low lumbar/sacral spina bifida and type 1 Chiari malformation, presenting for recurrent UTIs and bowel management issues. HPI: Recurrent UTIs: - 7th UTI this year; typically experiences UTIs for half the year. - Most recent episode began in July. - Symptoms include urinary frequency and fatigue. - Self-catheterizes Q1H due to bladder pressure; denies urinary leakage between catheterizations. - Urine cultures have predominantly shown E. coli. - No bladder reconstruction; not performing bladder irrigations. - Taking D-mannose and a probiotic; not on antibiotic prophylaxis. - Recent imaging shows normal kidneys; creatinine 0.58 mg/dL. - Drinks approximately one bottle of water per day. Bowel Management: - Chronic constipation; requires fecal disimpactions a couple of times a month. - Has a Banda stoma; instills 600 cc of warm water daily with minimal stool output. - Experiences severe pain under ribs during Banda stoma use, requiring pressure application for relief. - Pain persists throughout the night, making it difficult to lie down; uses a heating pad for relief. - Recent ER visit due to severe pain and emesis after unsuccessful Banda stoma use. - Managed by a GI doctor in [place]; has undergone multiple Banda stoma reconstructions. - Recent CT scan performed to assess Banda stoma function. - Has undergone various tests, including allergy tests and gastric emptying studies, with no definitive cause identified. Low Lumbar/Sacral Spina Bifida: - Ambulatory; uses a wheelchair for long distances. - Experiences neck and leg pain with prolonged walking. - No webbing inspector involvement. Type 1 Chiari Malformation: - Status post arachnoid dissection in December 2023. - No shunt placement; managed by Dr. Story. - Recent ED visit for headaches and dizziness. Menstrual Health: - Normal menstrual cycles with spotting due to control use. - Recent ED visit for abnormal vaginal bleeding after starting control. Current Outpatient Medications on File Prior to Visit Medication Sig ALPRAZolam (XANAX) 0.25 mg tablet 0.25 MG ORALLY TWICE A DAY amitriptyline (ELAVIL) 10 mg tablet Take 10 mg by mouth daily at bedtime. fluconazole (DIFLUCAN) 150 mg tablet PLEASE SEE ATTACHED FOR DETAILED DIRECTIONS hyoscyamine (LEVSIN) 0.125 mg tablet 1 TABLET ORALLY 2 TO 4 TIMES PER DAY NEEDED FOR DYSPEPSIA ciprofloxacin HCl (CIPRO) 500 mg tablet Take 1 tablet by mouth two times a day for 7 days. Phentermine HCl 37.5 mg tablet Take 1 tablet by mouth every afternoon. Drospirenone-Ethinyl Estradiol (PHILIP, 28,) 3-0.02 mg per tablet Take 1 tablet by mouth once daily. Ok to skip placebo week and start on new pack of pills metFORMIN (GLUCOPHAGE) 500 mg tablet Take 1 tablet by mouth daily with dinner. Ascorbic Acid 1,000 mg tablet Take 1 tablet by mouth once daily. albuterol HFA (PROVENTIL HFA, VENTOLIN HFA) 90 mcg/actuation inhaler Inhale 2 Puffs as instructed. Catheter (FEMALE CATHETER) 14 Fr misc 14 Chilean, 16 inch female straight tip intermittent catheter, to use q6 hrs prn urinary retention B.animalis,bifid,infantis,long (PROBIOTIC 4X ORAL) Take 1 capsule by mouth once daily. polyethylene glycol 3350 (MIRALAX) 17 gram/dose powder One quarter capful added to 800 cc of water and then flushed through the Banda stoma No current facility-administered medications on file prior to visit. MEDICATION ALLERGIES: ALLERGIES Allergies: Banana Unknown Comment:Per diagnosis Latex Unknown Comment:Per diagnosis PAST MEDICAL HISTORY Diagnosis Date Acute pain of right shoulder 01/21/2019 Chiari malformation type I (HCC) Lymphedema Menarche 09/2011 PMH - PAST MEDICAL HISTORY OF spina bifida PMH - PAST MEDICAL HISTORY OF 01/07/2004 color vision-normal PMH - PAST MEDICAL HISTORY OF bilateral club feet PMH - PAST MEDICAL HISTORY OF broken leg in 10/09 PAST SURGICAL HISTORY Procedure Laterality Date AFP, OPEN SPINA BIFIDA ([facility]) Spina Bifida surgery during infancy APPENDICONEOVESICOSTOMY 06/20/2016 APPENDICONEOVESICOSTOMY 12/2016 COLONOSCOPY FLX DX W/COLLJ SPEC WHEN PFRMD 10/24/2017 Colonoscopy KNEE RIGHT OP SURGERY 10/2012 right knee PAST SURGICAL HISTORY OF Bilateral Foot reconstruction x 4-5 times PAST SURGICAL HISTORY OF laser surgery on birthmark PAST SURGICAL HISTORY OF 10/2010 right knee surgery TONSILLECTOMY AND ADENOIDECTOMY FAMILY HISTORY: NEGATIVE: No related previous family hi (more content not included)... [facility] 10-21-2024 History of Present illness Narrative [facility] NEW PATIENT HISTORY AND PHYSICAL EXAM PATIENT INFO: Madhuri Paulson 23 year old Self-referred HISTORY CHIEF COMPLAINT: The patient is a 23-year-old female with a history of low lumbar/sacral spina bifida and type 1 Chiari malformation, presenting for recurrent UTIs and bowel management issues. HPI: Recurrent UTIs: - 7th UTI this year; typically experiences UTIs for half the year. - Most recent episode began in July. - Symptoms include urinary frequency and fatigue. - Self-catheterizes Q1H due to bladder pressure; denies urinary leakage between catheterizations. - Urine cultures have predominantly shown E. coli. - No bladder reconstruction; not performing bladder irrigations. - Taking D-mannose and a probiotic; not on antibiotic prophylaxis. - Recent imaging shows normal kidneys; creatinine 0.58 mg/dL. - Drinks approximately one bottle of water per day. Bowel Management: - Chronic constipation; requires fecal disimpactions a couple of times a month. - Has a Banda stoma; instills 600 cc of warm water daily with minimal stool output. - Experiences severe pain under ribs during Banda stoma use, requiring pressure application for relief. - Pain persists throughout the night, making it difficult to lie down; uses a heating pad for relief. - Recent ER visit due to severe pain and emesis after unsuccessful Banda stoma use. - Managed by a GI doctor in [place]; has undergone multiple Banda stoma reconstructions. - Recent CT scan performed to assess Banda stoma function. - Has undergone various tests, including allergy tests and gastric emptying studies, with no definitive cause identified. Low Lumbar/Sacral Spina Bifida: - Ambulatory; uses a wheelchair for long distances. - Experiences neck and leg pain with prolonged walking. - No webbing inspector involvement. Type 1 Chiari Malformation: - Status post arachnoid dissection in December 2023. - No shunt placement; managed by Dr. Story. - Recent ED visit for headaches and dizziness. Menstrual Health: - Normal menstrual cycles with spotting due to control use. - Recent ED visit for abnormal vaginal bleeding after starting control. Current Outpatient Medications on File Prior to Visit Medication Sig ALPRAZolam (XANAX) 0.25 mg tablet 0.25 MG ORALLY TWICE A DAY amitriptyline (ELAVIL) 10 mg tablet Take 10 mg by mouth daily at bedtime. fluconazole (DIFLUCAN) 150 mg tablet PLEASE SEE ATTACHED FOR DETAILED DIRECTIONS hyoscyamine (LEVSIN) 0.125 mg tablet 1 TABLET ORALLY 2 TO 4 TIMES PER DAY NEEDED FOR DYSPEPSIA ciprofloxacin HCl (CIPRO) 500 mg tablet Take 1 tablet by mouth two times a day for 7 days. Phentermine HCl 37.5 mg tablet Take 1 tablet by mouth every afternoon. Drospirenone-Ethinyl Estradiol (PHILIP, 28,) 3-0.02 mg per tablet Take 1 tablet by mouth once daily. Ok to skip placebo week and start on new pack of pills metFORMIN (GLUCOPHAGE) 500 mg tablet Take 1 tablet by mouth daily with dinner. Ascorbic Acid 1,000 mg tablet Take 1 tablet by mouth once daily. albuterol HFA (PROVENTIL HFA, VENTOLIN HFA) 90 mcg/actuation inhaler Inhale 2 Puffs as instructed. Catheter (FEMALE CATHETER) 14 Fr misc 14 [place]an, 16 inch female straight tip intermittent catheter, to use q6 hrs prn urinary retention B.animalis,bifid,infantis,long (PROBIOTIC 4X ORAL) Take 1 capsule by mouth once daily. polyethylene glycol 3350 (MIRALAX) 17 gram/dose powder One quarter capful added to 800 cc of water and then flushed through the Banda stoma No current facility-administered medications on file prior to visit. MEDICATION ALLERGIES: ALLERGIES Allergies: Banana Unknown Comment:Per diagnosis Latex Unknown Comment:Per diagnosis PAST MEDICAL HISTORY Diagnosis Date Acute pain of right shoulder 01/21/2019 Chiari malformation type I (HCC) Lymphedema Menarche 09/2011 PMH - PAST MEDICAL HISTORY OF spina bifida PMH - PAST MEDICAL HISTORY OF 01/07/2004 color vision-normal PMH - PAST MEDICAL HISTORY OF bilateral club feet PMH - PAST MEDICAL HISTORY OF broken leg in 10/09 PAST SURGICAL HISTORY Procedure Laterality Date AFP, OPEN SPINA BIFIDA ([facility]) Spina Bifida surgery during infancy APPENDICONEOVESICOSTOMY 06/20/2016 APPENDICONEOVESICOSTOMY 12/2016 COLONOSCOPY FLX DX W/COLLJ SPEC WHEN PFRMD 10/24/2017 Colonoscopy KNEE RIGHT OP SURGERY 10/2012 right knee PAST SURGICAL HISTORY OF Bilateral Foot reconstruction x 4-5 times PAST SURGICAL HISTORY OF laser surgery on birthmark PAST SURGICAL HISTORY OF 10/2010 right knee surgery TONSILLECTOMY & ADENOIDECTOMY <AGE 10 FAMILY HISTORY: NEGATIVE: No related previous family history. REVIEW OF SYSTEMS: Constitutional: (+) fatigue Neck: (+) neck pain Gastrointestinal: (+) constipation, (+) abdominal pain Genitourinary: (+) urinary frequency, (-) urinary incontinence, (-) hematuria Musculoskeletal: (+) leg pain with prolonged walking PHYSICAL EXAM: NAD in chair B LE ankle edema Creatinine Date Value Ref Range Status 08/11/2024 0.58 0.51 - 0.95 mg/dL Final Comment: Patients receiving either N-Acetylcysteine (NAC) or Metamizole prior to venipuncture, may have falsely depressed results. 07/29/2024 0.78 0.58 - 0.96 mg/dL Final 01/25/2024 0.55 (L) 0.58 - 0.96 mg/dL Final 12/04/2023 0.74 0.58 - 0.96 mg/dL Final MEDICAL DECISION MAKIN. Neurogenic bladder (N31.9) 2. Recurrent UTI (N39.0) 3. Cauda equina syndrome with neurogenic bladder (HCC) (G83.4) - Patient has a history of recurrent UTIs, with the current episode being the seventh of the year, primarily caused by E. coli. Initiated methenamine therapy to alter urine pH and inhibit bacterial growth. Advised increasing fluid intake to at least 1.5 liters per day to ensure adequate urine output and reduce bacterial colonization. Provided patient with a urine collection container and instructed to perform self-catheterization more frequently, aiming for urine volumes of no more than 250 cc per catheterization. Ordered Cystatin C level to monitor renal function. Established a standing order for urine cultures to be performed at any [facility] lab if symptomatic, with results to be sent directly to me for review. Follow-up scheduled in December at the Spina Bifida clinic. 4. Neurogenic bowel (K59.2) 5. Constipation, unspecified constipation type (K59.00) - Patient experiences severe constipation requiring fecal disimpactions multiple times a month, despite daily instillation of 600 cc of warm water via Banda stoma. Referred to Dr. Armida Alas, a colorectal surgeon specializing in adynamic colons, for further evaluation and management. Discussed the possibility of colonic distention contributing to symptoms and the potential need for surgical intervention. Advised patient to continue current bowel management regimen and to monitor for any changes in symptoms. 6. Chiari malformation type I (HCC) (G93.5) Standing order for Ucx placed. Recording using xPeerient software for draft documentation of the visit was discussed with the patient/authorized goodwill representative; all questions welcomed and answered. Patient/authorized goodwill representative agreed to proceed Christen Gee MD Electronically signed ADDENDUM: 180 Medical Patient has permanent urinary retention and is therefore catheterizing indefinitely 6X/day with GC [place] 12F female length. Reorder number [id number], 186 per month Diagnosis: Urinary retention R33.9 Neurogenic bladder N31.9 Spina bifida Q05.9 Christen Gee MD October 21, 2024 11:56 am documented in this encounter [facility] 10-21-2024 Note Patient Outreach (UR OLMN) MADHURI PAULSON ([id number]) 2000 F CHT Date Time Provider Department 10/21/24 CHRISTEN GEE During your visit today, we recorded the following information about you: Allergies As of Date: 10/21/2024 Noted Allergy Reaction BANANA 10/05/2010 16 - Unknown Comments: Per diagnosis LATEX 10/18/2002 16 - Unknown Comments: Per diagnosis Date Reviewed: 10/21/2024 Reviewed by: Constantin Avalos MA - Fully Assessed Visit Diagnosis:Screening for genitourinary condition [Z13.89] Order(s):UA DIP, URINE (POC) [[id number]] Order #: [id number] FUTURE Prescriptions as of 10/24/2024 - ALPRAZolam (XANAX) 0.25 mg tablet 0.25 MG ORALLY TWICE A DAY - amitriptyline (ELAVIL) 10 mg tablet Take 10 mg by mouth daily at bedtime. - fluconazole (DIFLUCAN) 150 mg tablet PLEASE SEE ATTACHED FOR DETAILED DIRECTIONS - hyoscyamine (LEVSIN) 0.125 mg tablet 1 TABLET ORALLY 2 TO 4 TIMES PER DAY NEEDED FOR DYSPEPSIA - Methenamine Hippurate (HIPREX) 1 gram tablet Take 1 tablet by mouth two times a day. - Phentermine HCl 37.5 mg tablet Take 1 tablet by mouth every afternoon. - Drospirenone-Ethinyl Estradiol (PHILIP, 28,) 3-0.02 mg per tablet Take 1 tablet by mouth once daily. Ok to skip placebo week and start on new pack of pills - metFORMIN (GLUCOPHAGE) 500 mg tablet Take 1 tablet by mouth daily with dinner. - Ascorbic Acid 1,000 mg tablet Take 1 tablet by mouth once daily. - albuterol HFA (PROVENTIL HFA, VENTOLIN HFA) 90 mcg/actuation inhaler Inhale 2 Puffs as instructed. - Catheter (FEMALE CATHETER) 14 Fr misc 14 Chilean, 16 inch female straight tip intermittent catheter, to use q6 hrs prn urinary retention - B.animalis,bifid,infantis,long (PROBIOTIC 4X ORAL) Take 1 capsule by mouth once daily. 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] 10/11/2010 Constipation [K59.00] 02/18/2014 Abnormality of gait [R26.9] 03/03/2015 Thoracic outlet syndrome [G54.0] 09/17/2018 Scapulothoracic bursitis of right shoulder [M75*01/21/2019 Acute pain of right shoulder [M25.511] 01/21/2019 06/29/2020 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] Lymphedema [I89.0] Neurogenic bowel [K59.2] 06/20/2016 Obese [E66.9] Obesity, Class I, BMI 30-34.9 [E66.811] 12/15/2023 S/P brain surgery [Z98.890] 12/15/2023 Postoperative pain [G89.18] 12/18/2023 Routine physical examination [Z00.00] 12/27/2023 Recurrent UTI (urinary tract infection) [N39.0] 07/16/2024 Dysmenorrhea [N94.6] 07/16/2024 Neurogenic bladder [N31.9] 07/16/2024 Encounter Status:Closed by EPIC, PRODUSER on 10/24/24 [facility] 10-18-2024 Telephone encounter Note Requested operative reports from [facility] fax: [phone]. Requested images and reports from [facility] ph: [phone] Electronically signed by [facility] Patient [facility] Shaun Paez at 10/18/2024 9:43 AM EDT [facility] 10-18-2024 Miscellaneous Notes Requested operative reports from [facility] fax: [phone]. Requested images and reports from [facility] ph: [phone] documented in this encounter [facility] 10-15-2024 Telephone encounter Note Pt. informed via My Chart. [facility] Work Phone: 10-15-2024 Miscellaneous Notes Pt. informed via My Chart. Please let patient know that her urine did look like another UTI, awaiting culture results. I reviewed her last cultures and have been sensitive to macrobid. It looks like she was treated with keflex with this last infection. I will send a prescription for macrobid to the pharmacy for her to get started. We will notify her if her urine culture does not show a clear infection or if we have to switch the antibiotic. I would advise see urology for further evaluation. Please help schedule. I see she already has a consult. The following approved medication requests have been transmitted electronically. Requested Prescriptions Signed Prescriptions Disp Refills nitrofurantoin monohydrate and macrocrystal (MACROBID) 100 mg capsule 14 capsule 0 Sig: Take 1 capsule by mouth two times a day for 7 days. Authorizing Provider: JOSEF MONACO PA-C Images from the original note were not included. See ebookpie message below: Madhuri Paulson Wstr Famp My Chart Rx Pool Ct Dr. Antonio s office. I stopped in this morning to give a urine sample for a culture. I just wanted to let you know so you can be aware of it. I ve had 6 UTI s this year so far and I woke up this morning and it appears I may have another one or the last one just never got cleared. I m having a lot of GI issues currently which I believe could be the reason but I just wanted you guys to be aware so you can watch and see if it s another UTI. Thanks! documented in this encounter [facility] 10-15-2024 Telephone encounter Note Please let patient know that her urine did look like another UTI, awaiting culture results. I reviewed her last cultures and have been sensitive to macrobid. It looks like she was treated with keflex with this last infection. I will send a prescription for macrobid to the pharmacy for her to get started. We will notify her if her urine culture does not show a clear infection or if we have to switch the antibiotic. I would advise see urology for further evaluation. Please help schedule. I see she already has a consult. The following approved medication requests have been transmitted electronically. Requested Prescriptions Signed Prescriptions Disp Refills nitrofurantoin monohydrate and macrocrystal (MACROBID) 100 mg capsule 14 capsule 0 Sig: Take 1 capsule by mouth two times a day for 7 days. Authorizing Provider: JOSEF MONACO PA-C [facility] 10-14-2024 Telephone encounter Note Images from the original note were not included. See ebookpie message below: Kevin Paulsonantha Saba Capone tr [place] My Chart Rx Pool Ct Dr. Antonio s office. I stopped in this morning to give a urine sample for a culture. I just wanted to let you know so you can be aware of it. I ve had 6 UTI s this year so far and I woke up this morning and it appears I may have another one or the last one just never got cleared. I m having a lot of GI issues currently which I believe could be the reason but I just wanted you guys to be aware so you can watch and see if it s another UTI. Thanks! [facility] 10-14-2024 Telephone encounter Note See TE October 14, 2024 [facility] 10-14-2024 Miscellaneous Notes See TE October 14, 2024 documented in this encounter [facility] 10-14-2024 Radiology Diagnostic study note [facility] [address] [place] [address] Abdomen/Pelvis WITH Contrast MR#: [id number] Acct: [id number] Name: MADHURI PAULSON Rep #: [id number] : 2000 F 23 From: Pravin Irizarry MD PCP: Dr. Juan Manuel Antonio, DO Status: RE G CLI Study:Abdomen/Pelvis WITH Contrast Date of Ex am: 10/14/24 Exam# [id number] Ordering Dr: Miquel Juárez DO PROCEDURE: ABDOMEN/PELVIS WITH CONTRAST 10/14/2024 REASON FOR EXAM: IV AND THROUGH THE BANDA STOMA PLEASE One-week history of bloody stool. History of a stoma. History of spina bifida. TECHNIQUE: Abdomen and pelvis CT with intravenous contrast. Coronal and Sagittal reconstruction series were provided. PATIENT PREPARATION: Per protocol ORAL CONTRAST TYPE: A mixture of saline and Gastrografin into the stoma. CONTRAST: Isovue-300 VOLUME: 100 mL One or more dose reduction techniques were used (e.g., Automated exposure control, adjustment of the mA and/or kV according to patient size, use of iterative reconstruction technique. RADIATION DOSE SUMMARY: CTDlvol: 14.7 mGy DLP: 940 mGycm COMPARISON: None FINDINGS: Lung bases: Unremarkable Liver: Normal size. No mass. Gallbladder: Unremarkable Spleen: Normal size. Pancreas: Normal size without evidence of mass surrounding inflammation or ductal dilation. Adrenals: Unremarkable Kidneys: Unremarkable Bladder: Unremarkable Reproductive Organs: Normal uterine size and contour. Ovaries are unremarkable. Bowel: Injected contrast is seen in the right hemicolon. A catheter is seen entering the umbilicus with termination into the right hemicolon. Appendix: The appendix is not identified. There is no inflammatory process identified in the right lower quadrant to suggest appendicitis. Lymph nodes: No suspicious lymph node enlargement. Vasculature: The abdominal aorta and IVC are normal. Peritoneum / Retroperitoneum: Unremarkable Bones: Spondylolysis of the pars interarticularis of the L5 vertebrae. CT/Abdomen/Pelvis WITH Contrast IMPRESSION: No acute abnormality is seen. Reading Location: [place] [address] CC: Dr. Juan Manuel Antonio, ; Colton Friend, DO ~ Bilingual Case Manager: Signed [facility] 10-13-2024 Telephone encounter Note Patient is already scheduled 10/25/24 [facility] 10-13-2024 Miscellaneous Notes Patient is already scheduled 10/25/24 Left message for patient to return call. When she calls, please schedule ER follow up with PCP Team SYLWIA. No, this must be a 40 minute appt. Jill Munson APRN.CNP Patient has 3 month follow up scheduled with Dr. Antonio on 10/14/24, which was made this past July. Recently, pt has had 2 recent ER visits, one on 10/03 (headache) and one today 10/09 (abd pain). Pt reports she will be following up with Neuro and Gastro, as recommended by ER. Can patient keep her 10/14 (20 MIN) appt, or does she need to reschedule for an ER F/U? Pt requesting to see Dr. Antonio and there are no ER F/U slots open with her, until 12/04/24 at this time. Please advise. Diana Boggs RN documented in this encounter [facility] 10-11-2024 Telephone encounter Note Left message for patient to return call. When she calls, please schedule ER follow up with PCP Team SYLWIA. [facility] 10-11-2024 Telephone encounter Note No, this must be a 40 minute appt. Jill Munson APRN.CNP [facility] Work Phone: 10-09-2024 Telephone encounter Note Patient has 3 month follow up scheduled with Dr. Antonio on 10/14/24, which was made this past July. Recently, pt has had 2 recent ER visits, one on 10/03 (headache) and one today 10/09 (abd pain). Pt reports she will be following up with Neuro and Gastro, as recommended by ER. Can patient keep her 10/14 (20 MIN) appt, or does she need to reschedule for an ER F/U? Pt requesting to see Dr. Antonio and there are no ER F/U slots open with her, until 12/04/24 at this time. Please advise. Diana Boggs RN [facility] 10-09-2024 Hospital Discharge instructions Patient Education 10/09/2024 07:28:20 Abdominal Pain Abdominal Pain Abdominal pain is pain in the stomach or belly area. Everyone has this pain from time to time. In many cases it goes away on its own. But abdominal pain can sometimes be due to a serious problem, such as appendicitis. So it s important to know when to get help. Causes of abdominal pain There are many possible causes of abdominal pain. Common causes in adults include: Constipation, diarrhea, or gas Stomach acid flowing back up into the esophagus (acid reflux or heartburn) Severe acid reflux, called GERD (gastroesophageal reflux disease) A sore in the lining of the stomach or small intestine (peptic ulcer) Inflammation of the gallbladder, liver, or pancreas Gallstones or kidney stones Appendicitis Intestinal blockage An internal organ pushing through a muscle or other tissue (hernia) Urinary tract infections In women, menstrual cramps, fibroids, ovarian cysts, pelvic inflammatory disease, or endometriosis Inflammation or infection of the intestines, including Crohn's disease and ulcerative colitis Irritable bowel syndrome Diagnosing the cause of abdominal pain Your healthcare provider will give you a physical exam help find the cause of your pain. If needed, you will have tests. Belly pain has many possible causes. So it can be hard to find the reason for your pain. Giving details about your pain can help. Tell your provider where and when you feel the pain, and what makes it better or worse. Also let your provider know if you have other symptoms such as: Fever Tiredness Upset stomach (nausea) Vomiting Changes in bathroom habits Blood in the stool or black, tarry stool Weight loss that you can't explain (involuntary weight loss?) Also report any family history of stomach or intestinal problems, or cancers. Tell your provider about all your alcohol use and drug use. Tell your provider about all medicines you use, including herbs, vitamins, and supplements. Treating abdominal pain Some causes of pain need emergency medical treatment right away. These include appendicitis or a bowel blockage. Other problems can be treated with rest, fluids, or medicines. Your healthcare provider can give you specific instructions for treatment or self-care based on what is causing your pain. If you have vomiting or diarrhea, sip water or other clear fluids. When you are ready to eat solid foods again, start with small amounts of [id number]-qt-cfdfag, low-fat foods. These include apple sauce, toast, or crackers. When to get medical care Call 911 or go to the hospital right away if you: Can t pass stool and are vomiting Are vomiting blood or have bloody diarrhea or black, tarry diarrhea Have chest, neck, or shoulder pain Feel like you might pass out Have pain in your shoulder blades with nausea Have sudden, severe belly pain Have new, severe pain unlike any you have felt before Have a belly that is rigid, hard, and hurts to touch Call your healthcare provider if you have: Pain for more than 5 days Bloating for more than 2 days Diarrhea for more than 5 days A fever of 100.4 F (38 C) or higher, or as directed by your healthcare provider Pain that gets worse Weight loss for no reason Continued lack of appetite Blood in your stool How to prevent abdominal pain Here are some tips to help prevent abdominal pain: Eat smaller amounts of food at each meal. Don't eat greasy, fried, or other high-fat foods. Don't eat foods that give you gas. Exercise regularly. Drink plenty of fluids. To help prevent GERD symptoms: Quit smoking. Reduce alcohol and foods that increase stomach acid. Don't use aspirin or nmuy-upc-yqagpcu pain and fever medicines, if possible. This includes nonsteroidal anti-inflammatory drugs (NSAIDs). Lose excess weight. Finish eating at least 2 hours before you go to bed or lie down. Raise the head of your bed. 4401-6399 [employer]. [address] [place] [address], [place] [address]. All rights reserved. This information is not intended as a substitute for professional medical care. Always follow your healthcare professional's instructions. Follow Up Care 10/09/2024 02:01:53 With:FRIENDCOLTON DO Address: [address] [facility] [place] [address] [phone] When:2-4 days [facility] 10-09-2024 Emergency department Discharge summary Discharge Instructions Thank you for allowing [facility] to assist you with your healthcare needs. The following is important discharge information regarding your hospital visit. Diagnosis from Today's Visit Abdominal pain Nausea and vomiting What to Do Next Instructions from Your Care Team No qualifying data available. Post Acute Orders No qualifying data available. You Need to Schedule the Following Appointments Follow Up with FRIEND, COLTON DO When:Within 2-4 days Where:[address] [facility] [place] [address]- [phone] Allergies Latex Medications Please ask your primary doctor or pharmacist before taking any other medication not listed, including over the counter drugs, herbal medications, vitamins and or supplements as they may interact with your home medications. What How Much When Why Instructions Last Dose New acetaminophen-hydrocodone ([place] 325- 5 mg oral tablet) 1 tab(s) by mouth Every 6 hours as needed for for pain Abdominal pain Duration: 2 Days Printed Prescription New ondansetron (Zofran 4 mg oral tablet) 1 tab(s) by mouth Every 6 hours as needed for Nausea/Vomiting Duration: 3 Days Printed Prescription Please take this list to your next doctor s visit. Bring all medications you take, including over the counter medications, herbals and other supplements with you to your doctor s visit. Patients and families are reminded to discard old lists and to update any records with all medication providers or retail pharmacies. Education Materials Abdominal Pain Abdominal pain is pain in the stomach or belly area. Everyone has this pain from time to time. In many cases it goes away on its own. But abdominal pain can sometimes be due to a serious problem, such as appendicitis. So it s important to know when to get help. Causes of abdominal pain There are many possible causes of abdominal pain. Common causes in adults include: Constipation, diarrhea, or gas Stomach acid flowing back up into the esophagus (acid reflux or heartburn) Severe acid reflux, called GERD (gastroesophageal reflux disease) A sore in the lining of the stomach or small intestine (peptic ulcer) Inflammation of the gallbladder, liver, or pancreas Gallstones or kidney stones Appendicitis Intestinal blockage An internal organ pushing through a muscle or other tissue (hernia) Urinary tract infections In women, menstrual cramps, fibroids, ovarian cysts, pelvic inflammatory disease, or endometriosis Inflammation or infection of the intestines, including Crohn's disease and ulcerative colitis Irritable bowel syndrome Diagnosing the cause of abdominal pain Your healthcare provider will give you a physical exam help find the cause of your pain. If needed, you will have tests. Belly pain has many possible causes. So it can be hard to find the reason for your pain. Giving details about your pain can help. Tell your provider where and when you feel the pain, and what makes it better or worse. Also let your provider know if you have other symptoms such as: Fever Tiredness Upset stomach (nausea) Vomiting Changes in bathroom habits Blood in the stool or black, tarry stool Weight loss that you can't explain (involuntary weight loss?) Also report any family history of stomach or intestinal problems, or cancers. Tell your provider about all your alcohol use and drug use. Tell your provider about all medicines you use, including herbs, vitamins, and supplements. Treating abdominal pain Some causes of pain need emergency medical treatment right away. These include appendicitis or a bowel blockage. Other problems can be treated with rest, fluids, or medicines. Your healthcare provider can give you specific instructions for treatment or self-care based on what is causing your pain. If you have vomiting or diarrhea, sip water or other clear fluids. When you are ready to eat solid foods again, start with small amounts of oniq-lv-tcfzwn, low-fat foods. These include apple sauce, toast, or crackers. When to get medical care Call 911 or go to the hospital right away if you: Can t pass stool and are vomiting Are vomiting blood or have bloody diarrhea or black, tarry diarrhea Have chest, neck, or shoulder pain Feel like you might pass out Have pain in your shoulder blades with nausea Have sudden, severe belly pain Have new, severe pain unlike any you have felt before Have a belly that is rigid, hard, and hurts to touch Call your healthcare provider if you have: Pain for more than 5 days Bloating for more than 2 days Diarrhea for more than 5 days A fever of 100.4 F (38 C) or higher, or as directed by your healthcare provider Pain that gets worse Weight loss for no reason Continued lack of appetite Blood in your stool How to prevent abdominal pain Here are some tips to help prevent abdominal pain: Eat smaller amounts of food at each meal. Don't eat greasy, fried, or other high-fat foods. Don't eat foods that give you gas. Exercise regularly. Drink plenty of fluids. To help prevent GERD symptoms: Quit smoking. Reduce alcohol and foods that increase stomach acid. Don't use aspirin or qqmx-rhf-ihilxmj pain and fever medicines, if possible. This includes nonsteroidal anti-inflammatory drugs (NSAIDs). Lose excess weight. Finish eating at least 2 hours before you go to bed or lie down. Raise the head of your bed. 5067-1730 [employer]. [address] [place] [address], [place] [id number]. All rights reserved. This information is not intended as a substitute for professional medical care. Always follow your healthcare professional's instructions. Additional Information VACCINATE! IT SAVES LIVES! Members of the community who have not yet received the COVID-19 vaccine and would like to receive it can visit one of [facility] vaccine clinics. There are many vaccine clinic locations within the [facility]. For locations and available times, please visit [email or web address] [email or web address] It is important to note that some COVID mobile vaccine clinics are held outdoors and may be canceled in rainy or stormy conditions. To learn more about pediatric vaccinations (ages 5-11), we invite you to visit the [facility] webpage. [email or web address]/pa [email or web address]-Dikto-Upekilshcuq-Freque plih-Zgmmo-Yjucwheii.html To learn more about the COVID-19 vaccine, we invite you to visit the CDC website for a list of frequently asked questions. https://www.cdc.gov/coronavirus/2 019-ncov/vaccines/faq.html [facility] Patient Portal Access Instructions: Stay connected with your healthcare team and access your personal medical information anytime with the [facility] Patient Portal. If you would like a full copy of your medical records please contact the [facility] Medical Records Department Monday through Monday between 8a.m. and 4:30p.m. Please follow the directions below to access the portal: 1.Access the email account you provided upon registration to the [facility].2.Look for an invitation email from [facility].3.Open the email and access the invitation link: Accept Invitation to [facility]4.Fill in the required son to create your account. Sign into [email or web address] Friend with your username and password that you created in the above steps to stay up to date. You can then view a summary of results, a summary of your visits, and the ability to download your summaries to your computer or send the information securely to a physician. Remember that your healthcare information is confidential, so carefully consider who you will allow to register on the [facility] Patient Portal for access to your information. You can also access the [facility] Patient Portal on the [employer] stephane. Simply click on Health Records under Health Data and then click on the [facility] logo. HOW TO SAFELY DISPOSE OF PRESCRIPTION MEDICATIONS Please use one of the following methods to safely dispose of your unused medications. 1.Use a drug disposal kit: the drug disposal pouch allows you to safely discard your old and unused drugs. Ask your nurse to give you one when you are discharged.2.Visit a local take-back location: Many local pharmacies and police departments have programs that collect old and unwanted prescription drugs. Call your local pharmacy or go to http://Plurchase.Make It Work/0T4Zw4e to find one close to you.3.Make use of household items: Use cat litter or old coffee grounds to dispose medications if other options are not available. Mix your drugs with these household products, seal them in an airtight container and throw it into the garbage. Call [facility]: [phone] to be sure your drugs can be disposed of in this way. Some medicines may require a different approach.4.Never flush your medications down the toilet. IF YOU HAVE BEEN PRESCRIBED AN OPIOIDS FOR PAIN If you have been prescribed an opioid (such as hydrocodone, oxycodone or morphine), it is critical to understand the possible side effects and risks of opioid pain medications. Even when taken as directed, opioids can have several side effects including: Tolerance, meaning you might need to take more of a medication for the same pain relief. Nausea, vomiting and/or constipation. Sleepiness, dizziness, dry mouth, confusion, depression or itching. Physical dependence, meaning you have withdrawal symptoms when a medication is stopped ? this can develop within a few days. KNOW YOUR RESPONSIBILITIES It is important to know exactly how much and how often to take the opioid pain medications you are prescribed. Never take opioids in higher amounts or more often than prescribed. Do not combine opioids with alcohol or other drugs that cause drowsiness, such as benzodiazepines, also known as benzos, including diazepam and alprazolam, muscle relaxants or sleep aids. Never sell or share prescription opioids. This is illegal. Store opioids in a secure place and out of reach of others (including children, family, friends and visitors). The last page(s) of this document has been signed and retained as a CHART COPY Signatures Patient Education Materials Abdominal Pain Medication Leaflets My discharge plan and instructions have been reviewed and explained to me and I,MADHURI PAULSON understand my current condition and have read and understand these discharge instructions. I have received a written copy of the plan/instructions. If I have questions, I am aware that I should contact my doctor. 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 Multiplanar reformatted images are provided for review. Automated exposure control, iterative reconstruction, and/or weight based adjustment of the mA/kV was utilized to reduce the radiation dose to as low as reasonably achievable. COMPARISON: None. HISTORY: ORDERING SYSTEM PROVIDED HISTORY: Reason for Exam: UPPER ABDOMEN PAIN x COUPLE HOURS, N/V, HX OF GASTROPARESIS abdominal pain FINDINGS: No acute osseous abnormality. 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 Included thoracic structures are unremarkable. Normal liver, gallbladder, spleen, pancreas, and adrenal glands. Symmetric nephrograms without evidence of hydronephrosis or nephrolithiasis. Nonaneurysmal abdominal aorta. No abdominal lymphadenopathy, free fluid, or intraperitoneal free air identified. No acute GI abnormality. Postsurgical changes of the mid abdomen. Under distended urinary bladder limiting evaluation. Small amount of fluid within the endometrial canal likely physiologic in a patient of this age. IMPRESSION: No acute findings to explain patient's symptoms. Lumbosacral spinal dysraphism with a meningocele. I have personally reviewed the images of this examination, and agree with the resident's findings and interpretation. Interpreted by: Tim Garduno MD Preliminary Report By: Minesh Tavarez Electronically signed By Tim Garduno MD Dictated Date: 10/09/2024 3:43:54 AM Prelim Date: 10/09/2024 3:52:49 AM Sign Date: 10/09/2024 4:00:08 AM Ordering Provider: [facility]04-06-2025 Telephone encounter Note* Telephone Encounter - Jayde Ray LPN - 10/06/2024 9:43 AM EDT Patient aware of provider note and voices understanding. Jayde Ray LPN [facility]04-06-2025 Miscellaneous Notes* Telephone Encounter - Jayde Ray LPN - 10/06/2024 9:43 AM EDT Patient aware of provider note and voices understanding. Jayde Ray LPN * Telephone Encounter - Jayde Ray LPN - 10/06/2024 9:41 AM EDT ----- Message from Stalin Rodriguez APRN.SIGNAL INSPECTOR sent at 10/06/2024 9:32 AM EDT ----- Please call patient and let her know that her urine culture returned showing slight bacteria. Please advise patient to continue taking antibiotic if they are showing relief from symptoms. Please havepatient follow-up with PCP if symptoms persist or worsen. [facility] Telephone encounter Note * Telephone Encounter - Jayde Ray LPN - 10/06/2024 9:41 AM EDT ----- Message from Stalin Rodriguez APRN.SIGNAL INSPECTOR sent at 10/06/2024 9:32 AM EDT ----- Please call patient and let her know that her urine culture returned showing slight bacteria. Please advise patient to continue taking antibiotic if they are showing relief from symptoms. Please havepatient follow-up with PCP if symptoms persist or worsen. [facility]04-04-2025 Telephone encounter Note* Telephone Encounter - Natacha Epps - 10/04/2024 3:57 PM EDT General Call Caller : patient Contact Reason for Call : Patient calling to let office know that yesterday she had the worst headache she has had since surgery. Then started having severe neck pain mid afternoon and couldn't turn left. She went to the ER they did a CT Scan. She said when they pressed on the incision site the the pressure radiated upwards. Would like the office to review the ER notes and CT scan. Patient requesting return call ? Yes [facility]04-04-2025 Miscellaneous Notes* Telephone Encounter - Natacha Epps - 10/04/2024 3:57 PM EDT General Call Caller : patient Contact Reason for Call : Patient calling to let office know that yesterday she had the worst headache she has had since surgery. Then started having severe neck pain mid afternoon and couldn't turn left. She went to the ER they did a CT Scan. She said when they pressed on the incision site the the pressure radiated upwards. Would like the office to review the ER notes and CT scan. Patient requesting return call ? Yes [facility] NoteHNO ID: [id number] Author: ALAN FAIRCHLID APRN.SIGNAL INSPECTOR Service: ? Author Type: Nurse Practitioner Type: Progress Notes Filed: 10/02/2024 19:23 Note Text: [facility] Subjective Madhuri Paulson is a 23 year old female. Patient presents [place]: [place]: [place] [address] no better Madhuri is a 23-year-old female who presents today with urinary frequency. She states that she was seen on the for concerns for urinary tract infection. She states that she has spina bifida and she self caths 4 times a day. She states that recently she has been self catheterizing 10 times a day. She states that this is not normal for her. She was placed on Keflex on Monday, however her urine culture was missed and she is still having urinary symptoms that have not gotten any better. She would like to switch her antibiotics. No fever or chills. Denies blood in her urine. States that since the first of the year she has had 6 urinary tract infections. She has not seen a urologist. She is here for further evaluation and treatment. No other complaints. Review of Systems Constitutional: Negative for chills and fever. Respiratory: Negative for cough. Cardiovascular: Negative for chest pain. Gastrointestinal: Negative for abdominal pain, nausea and vomiting. Genitourinary: Positive for frequency and urgency. Negative for hematuria. Objective BP 127/90 Pulse 110 Temp 36.8 ?C (98.3 ?F) Resp 18 Wt 81.6 kg (180 lb) LMP 09/12/2024 (Approximate) SpO2 99% BMI 30.90 kg/m? Physical Exam Vitals and nursing note reviewed. Constitutional: General: She is not in acute distress. Appearance: Normal appearance. She is not ill-appearing, toxic-appearing or diaphoretic. HENT: Head: Normocephalic and atraumatic. Eyes: Extraocular Movements: Extraocular movements intact. Conjunctiva/sclera: Conjunctivae normal. Pulmonary: Effort: Pulmonary effort is normal. No respiratory distress. Abdominal: General: Bowel sounds are normal. Palpations: Abdomen is soft. Tenderness: There is no abdominal tenderness. There is no right CVA tenderness, left CVA tenderness or guarding. Musculoskeletal: General: Normal range of motion. Cervical back: Normal range of motion and neck supple. Skin: General: Skin is warm and dry. Neurological: General: No focal deficit present. Mental Status: She is alert and oriented to person, place, and time. Psychiatric: Mood and Affect: Mood normal. Behavior: Behavior normal. {ASSESSMENT/PLAN: 1. Recurrent UTI (urinary tract infection) - ICD9: 599.0, ICD10: N39.0 (primary diagnosis) recurrent - UA positive for hematuria - Send urine for culture - Patient education for prevention given - NITROFURANTOIN MONOHYDRATE AND MACROCRYSTAL 100 MG ORAL CAP - CONSULT TO UROLOGY -Patient with history of spina bifida that self caths 4 times daily. She has been treated for recurrent urinary tract infections for the past few months. States that she is currently taking Keflex that she started on Monday. States that she is still self cathing about 10 times a day. Does not feel like her symptoms have gotten any better at this time. Unfortunately a urine culture was missed and we do not know what bacteria is growing. Patient would like to switch antibiotics. She was hesitant to try Bactrim as she states that this upsets her stomach. I will start her on Macrobid 1 pill twice a day for 7 days. We did repeat a urine culture and sent that out today. I informed her that I will call her if we need to make any changes to the antibiotics pending her urine culture. At this time I do believe that she needs to be evaluated by urology. I did place a consult to them and gave her a referral sheet. Encouraged patient to call for an appointment tomorrow. Reviewed red flag symptoms and discussed when patient would need to be evaluated in the emergency room. An education handout was provided. Patient was agreeable and verbalized understanding of the plan. She was discharged in stable condition from urgent care. 2. Urinary frequency - ICD9: 788.41, ICD10: R35.0 - URINALYSIS, DIPSTICK ONLY Alan Fairchild APRN.FANNY History and Record Review External record(s) reviewed: prior outpatient record. Findings from review of outpatient records: 09/10/2024 and 09/27/2024 Differential Diagnoses - Recurrent UTI is more likely for the following reason(s): suggested by HANDP and consistent with laboratory studies Disposition The patient was discharged. [facility]04-02-2025 History of Present illness Narrative* Alan Fairchild APRN.FANNY - 10/02/2024 7:04 PM EDT [facility] Subjective Madhuri Paulson is a 23 year old female. Patient presents with: UTI: Frequency was here on \\ no better Madhuri is a 23-year-old female who presents today with urinary frequency. She states that she wasseen on the for concerns for urinary tract infection. She states that she has spina bifida andshe self caths 4 times a day. She states that recently she has been self catheterizing 10 times a day. She states that this is not normal for her. She was placed on Keflex on Monday, however her urine culture was missed and she is still having urinary symptoms that have not gotten any better. She would like to switch her antibiotics. No fever or chills. Denies blood in her urine. States that since the first of the year she has had 6 urinary tract infections. She has not seen a urologist. She ishere for further evaluation and treatment. No other complaints. Review of Systems Constitutional: Negative for chills and fever. Respiratory: Negative for cough. Cardiovascular: Negative for chest pain. Gastrointestinal: Negative for abdominal pain, nausea and vomiting. Genitourinary: Positive for frequency and urgency. Negative for hematuria. Objective BP 127/90 Pulse 110 Temp 36.8 C (98.3 F) Resp 18 Wt 81.6 kg (180 lb) LMP 09/12/2024 (Approximate) SpO2 99% BMI 30.90 kg/m Physical Exam Vitals and nursing note reviewed. Constitutional: General: She is not in acute distress. Appearance: Normal appearance. She is not ill-appearing, toxic-appearing or diaphoretic. HENT: Head: Normocephalic and atraumatic. Eyes: Extraocular Movements: Extraocular movements intact. Conjunctiva/sclera: Conjunctivae normal. Pulmonary: Effort: Pulmonary effort is normal. No respiratory distress. Abdominal: General: Bowel sounds are normal. Palpations: Abdomen is soft. Tenderness: There is no abdominal tenderness. There is no right CVA tenderness, left CVA tendernessor guarding. Musculoskeletal: General: Normal range of motion. Cervical back: Normal range of motion and neck supple. Skin: General: Skin is warm and dry. Neurological: General: No focal deficit present. Mental Status: She is alert and oriented to person, place, and time. Psychiatric: Mood and Affect: Mood normal. Behavior: Behavior normal. {ASSESSMENT/PLAN: 1. Recurrent UTI (urinary tract infection) - ICD9: 599.0, ICD10: N39.0 (primary diagnosis) recurrent - UA positive for hematuria - Send urine for culture - Patient education for prevention given - NITROFURANTOIN MONOHYDRATE & MACROCRYSTAL 100 MG ORAL CAP - CONSULT TO UROLOGY -Patient with history of spina bifida that self caths 4 times daily. She has been treated for recurrent urinary tract infections for the past few months. States that she is currently taking Keflex that she started on Monday. States that she is still self cathing about 10 times a day. Does not feel like her symptoms have gotten any better at this time. Unfortunately a urine culture was missed and we do not know what bacteria is growing. Patient would like to switch antibiotics. She was hesitant to try Bactrim as she states that this upsets her stomach. I will start her on Macrobid 1 pill twicea day for 7 days. We did repeat a urine culture and sent that out today. I informed her that I willcall her if we need to make any changes to the antibiotics pending her urine culture. At this time I do believe that she needs to be evaluated by urology. I did place a consult to them and gave her areferral sheet. Encouraged patient to call for an appointment tomorrow. Reviewed red flag symptoms and discussed when patient would need to be evaluated in the emergency room. An education handout was provided. Patient was agreeable and verbalized understanding of the plan. She was discharged in stable condition from urgent care. 2. Urinary frequency - ICD9: 788.41, ICD10: R35.0 - URINALYSIS, DIPSTICK ONLY Alan Fairchild APRN.CNP History and Record Review External record(s) reviewed: prior outpatient record. Findings from review of outpatient records: 09/10/2024 and 09/27/2024 Differential Diagnoses - Recurrent UTI is more likely for the following reason(s): suggested by H&P and consistent with laboratory studies Disposition The patient was discharged. Procedures [facility] Instructions* Patient Instructions* Alan Fairchild APRN.CNP - 10/02/2024 7:04 PM EDT Stop Keflex. Start Macrobid. I will call you if your culture results if we need to make any changesto your antibiotics. In the meantime please take antibiotics as directed. If you develop any new orworsening symptoms, fever, chills or flank pain please go to the emergency room for further evaluation and treatment. Urinary Tract Infection Adult You have been diagnosed with a basic urinary tract infection (UTI). This means it does not involve your kidneys or areas other than your bladder. A UTI is an infection in your bladder. Your doctor diagnosed it by testing your urine. UTIs usuallycauses burning when you urinate (pee) or urinating often. It might make you feel like you have to urinate even when you don't. UTI is usually treated with antibiotics and medicine to help with pain. It is very important that you fill your prescription and take all of the antibiotics as directed. If a urinary tract infection goes untreated for too long, it can become a kidney infection. For Women: To reduce the risk of getting another UTI: Always urinate before and after sexual intercourse. Always wipe from front to back after urinating or having a bowel movement. Do not wipe from back tofront. Drink plenty of fluids. Try to drink cranberry or blueberry juice. These juices have a chemical that stops bacteria from sticking to the bladder. Return here or go to the nearest Emergency Department immediately if: You have a fever (temperature higher than 100.4 F / 38 C) or shaking chills. You feel nauseated (sick to your stomach) or vomit (throw up). You have pain in your side or back. You don't get better after taking all of your antibiotics. You have any new symptoms or concerns. You feel worse or do not improve. If you can't follow up with your doctor, or if at any time you feel you need to be rechecked or seen again, come back here or go to the nearest emergency department. documented [facility]04-[facility]25 Telephone encounter Note * Telephone Encounter - Alma Crawley RN - 10/02/2024 4:29 PM EDT Patient calls to request an appointment for recurrent UTI. She is currently on cephalexin QID and symptoms are not improving. Patient was seen at [facility] but urine wasn't sent for a culture. Patient concerned that antibiotic is not correct for infection she has. PCP out and no available appointments with [facility]. Offered availability within [facility] and [facility]. Scheduled with appointment time that worked for patient. Alma Crawley RN [facility]04-02-2025 Miscellaneous Notes* Telephone Encounter - Alma Crawley RN - 10/02/2024 4:29 PM EDT Patient calls to request an appointment for recurrent UTI. She is currently on cephalexin QID and symptoms are not improving. Patient was seen at [facility] but urine wasn't sent for a culture. Patient concerned that antibiotic is not correct for infection she has. PCP out and no available appointments with [facility]. Offered availability within [facility] and [facility]. Scheduled with appointment time that worked for patient. Alma Crawley RN documented in this encounterBelle[facility] Hospital03-31-2025 Telephone encounter Note * Telephone Encounter - Jacqueline Field LPN - 09/30/2024 9:45 AM EDT Pt reports she would like order faxed to [facility] in [place]. Jacqueline Field LPN [facility]03-31-2025 Miscellaneous Notes* Telephone Encounter - Jacqueline Field LPN - 09/30/2024 9:45 AM EDT Pt reports she would like order faxed to [facility] in [place]. Jacqueline Field LPN * Telephone Encounter - Alecia Guardado LPN - 09/27/2024 1:22 PM EDT Pt. called to verify where she wants to get this done at. Message left to return call. * Telephone Encounter - Jill Munson APRN.CNP - 09/26/2024 3:03 PM EDT Order placed. Jill Munson APRN.CNP * Telephone Encounter - Shannon Acharya MA - 09/26/2024 2:40 PM EDT Please review order pended Shannon Acharya MA * Telephone Encounter - Jill Munson APRN.CNP - 09/26/2024 2:24 PM EDT What does this mean? Jill Munson APRN.CNP * Telephone Encounter - Alecia Guardado LPN - 09/20/2024 1:01 PM EDT Fax order to [facility] form with [facility]. documented in this encounterBelle[facility]03-28-2025 Instructions* Patient Instructions* Aidan Bains Jr., APRN.CNP - 09/27/2024 5:37 PM EDT Take medications as prescribed. Follow-up with PCP or return if symptoms do not resolve visit Urgent Care. documented in this encounterBelle[facility]03-28-2025 NoteHNO ID: [id number] Author: AIDAN BAINS JR, APRN.CNP Service: ? Author Type: Nurse Practitioner Type: Progress Notes Filed: 09/27/2024 17:47 Note Text: [facility] [place] Paulson is a 23 year old female. Patient presents with: frequent urination: Frequent urination x 2 days Has recurring UTI's 23-year-old female presents today complaining of frequent urination and dysuria by 2 days. Patient was previously seen at this office a couple weeks ago for a UTI and appropriate antibiotic was prescribed at that time. Patient self caths. The history is provided by the patient. Review of Systems Constitutional: Negative for fever. HENT: Negative for sore throat. Respiratory: Negative for chest tightness. Cardiovascular: Negative for chest pain. Gastrointestinal: Negative for abdominal pain. Genitourinary: Positive for dysuria, frequency and urgency. Musculoskeletal: Negative for back pain. Skin: Negative for rash. Neurological: Negative for headaches. Objective BP 119/85 Pulse 91 Temp 36.6 ?C (97.8 ?F) Resp 18 Wt 81.6 kg (180 lb) LMP 09/12/2024 (Approximate) SpO2 100% BMI 30.90 kg/m? Physical Exam Vitals and nursing note reviewed. Constitutional: Appearance: Normal appearance. HENT: Head: Normocephalic and atraumatic. Eyes: Conjunctiva/sclera: Conjunctivae normal. Cardiovascular: Rate and Rhythm: Normal rate and regular rhythm. Heart sounds: Normal heart sounds. Pulmonary: Effort: Pulmonary effort is normal. Breath sounds: Normal breath sounds. No wheezing or rales. Abdominal: General: Bowel sounds are normal. Palpations: Abdomen is soft. Tenderness: There is no right CVA tenderness or left CVA tenderness. Skin: General: Skin is warm and dry. Neurological: Mental Status: She is alert and oriented to person, place, and time. Urine dip positive for leuks, nitrates, urobilinogen, protein, ketones, and cloudy. Consider positive for UTI Urine culture ordered. Assessment AND Plan Recurrent UTI (urinary tract infection) Based on examination I diagnosed patient with a recurrent UTI infection. Patient was previously treated here when asked patient stated she had about 6 UTIs since the beginning of the year. I feel that further evaluation is needed I recommended follow-up with the urologist. Patient stated she is trying to find a urologist to go to. She has an appointment with her primary care physician in 2 weeks and stated she would bring the subject up with them. Due to patient's self cathing to make sure that this is a simple UTI I did order another urine culture. Base further treatment on results of culture and sensitivity when received. Orders: cephALEXin (KEFLEX) 500 mg capsule; Take 1 capsule by mouth four times daily for 7 days. BACTERIAL CULTURE, URINE phenazopyridine (PYRIDIUM) 200 mg tablet; Take 1 tablet by mouth three times a day as needed for pain for up to 3 days. Urinary problem Orders: URINALYSIS, DIPSTICK ONLY; Future phenazopyridine (PYRIDIUM) 200 mg tablet; Take 1 tablet by mouth three times a day as needed for pain for up to 3 days. [facility]03-28-2025 History of Present illness Narrative* Aidan Bains Jr., RN CLINICAL.SIGNAL INSPECTOR - 09/27/2024 5:27 PM EDT [facility] [place] Subjective Madhuri Paulson is a 23 year old female. Patient presents with: frequent urination: Frequent urination x 2 days Has recurring UTI's 23-year-old female presents today complaining of frequent urination and dysuria by 2 days. Patient was previously seen at this office a couple weeks ago for a UTI and appropriate antibiotic was prescribed at that time. Patient self caths. The history is provided by the patient. Review of Systems Constitutional: Negative for fever. HENT: Negative for sore throat. Respiratory: Negative for chest tightness. Cardiovascular: Negative for chest pain. Gastrointestinal: Negative for abdominal pain. Genitourinary: Positive for dysuria, frequency and urgency. Musculoskeletal: Negative for back pain. Skin: Negative for rash. Neurological: Negative for headaches. Objective BP 119/85 Pulse 91 Temp 36.6 C (97.8 F) Resp 18 Wt 81.6 kg (180 lb) LMP 09/12/2024 (Approximate) SpO2 100% BMI 30.90 kg/m Physical Exam Vitals and nursing note reviewed. Constitutional: Appearance: Normal appearance. HENT: Head: Normocephalic and atraumatic. Eyes: Conjunctiva/sclera: Conjunctivae normal. Cardiovascular: Rate and Rhythm: Normal rate and regular rhythm. Heart sounds: Normal heart sounds. Pulmonary: Effort: Pulmonary effort is normal. Breath sounds: Normal breath sounds. No wheezing or rales. Abdominal: General: Bowel sounds are normal. Palpations: Abdomen is soft. Tenderness: There is no right CVA tenderness or left CVA tenderness. Skin: General: Skin is warm and dry. Neurological: Mental Status: She is alert and oriented to person, place, and time. Urine dip positive for leuks, nitrates, urobilinogen, protein, ketones, and cloudy. Consider positive for UTI Urine culture ordered. Assessment & Plan Recurrent UTI (urinary tract infection) Based on examination I diagnosed patient with a recurrent UTI infection. Patient was previously treated here when asked patient stated she had about 6 UTIs since the beginning of the year. I feel that further evaluation is needed I recommended follow-up with the urologist. Patient stated she is trying to find a urologist to go to. She has an appointment with her primary care physician in 2 weeks and stated she would bring the subject up with them. Due to patient's self cathing to make sure thatthis is a simple UTI I did order another urine culture. Base further treatment on results of culture and sensitivity when received. Orders: cephALEXin (KEFLEX) 500 mg capsule; Take 1 capsule by mouth four times daily for 7 days. BACTERIAL CULTURE, URINE phenazopyridine (PYRIDIUM) 200 mg tablet; Take 1 tablet by mouth three times a day as needed for pain for up to 3 days. Urinary problem Orders: URINALYSIS, DIPSTICK ONLY; Future phenazopyridine (PYRIDIUM) 200 mg tablet; Take 1 tablet by mouth three times a day as needed for pain for up to 3 days. MDM Procedures documented in this encounterBelle[facility]03-28-2025 Telephone encounter Note * Telephone Encounter - Alecia Guardado LPN - 09/27/2024 1:22 PM EDT Pt. called to verify where she wants to get this done at. Message left to return call. [facility] Work Phone: [phone]) 935-665303-27-2025 Telephone encounter Note* Telephone Encounter - Jill Munson APRN.CNP - 09/26/2024 3:03 PM EDT Order placed. Jill Munson APRN.CNP [facility]03-27-2025 Telephone encounter Note* Telephone Encounter - Shannon Acharya MA - 09/26/2024 2:40 PM EDT Please review order pended Shannon Acharya MA [facility]03-27-2025 Telephone encounter Note* Telephone Encounter - Jill Munson APRN.CNP - 09/26/2024 2:24 PM EDT What does this mean? Jill Munson APRN.FANNY [facility]03-21-2025 Telephone encounter Note* Telephone Encounter - Alecia Guardado LPN - 09/20/2024 1:01 PM EDT Fax order to [facility] form with [facility]. 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 coli on urine culture. Awaiting culture sensitivity. [facility] Work Phone: 1(414) 737-847903-13-2025 Miscellaneous Notes* Result Encounter Note - Eduarda Pineda PA-C - 09/12/2024 4:19 PM EDT Patient positive for E. coli on urine culture. Awaiting culture sensitivity. documented in this encounterBellevue Hospital03-11-2025 Note* Addendum Note - Aidan Bains Jr., APRN.CNP - 09/10/2024 6:50 PM EDTAddended by: AIDNA BAINS on: 09/10/2024 06:50 PM Modules accepted: Orders [facility]03-11-2025 Miscellaneous Notes* Addendum Note - Aidan Bains Jr., APRN.CNP - 09/10/2024 6:50 PM EDTAddended by: AIDAN BAINS on: 09/10/2024 06:50 PM Modules accepted: Orders documented in this encounterBellevue Hospital03-11-2025 Instructions* Patient Instructions* Aidan Bains Jr., APRN.CNP - 09/10/2024 6:29 PM EDT Take medications as prescribed. Follow-up with PCP or return if symptoms do not resolve visit Urgent Care. documented in this encounterBellevue Hospital03-11-2025 NoteHNO ID: [id number] Author: AIDAN BAINS JR, APRN.CNP Service: ? Author Type: Nurse Practitioner Type: Progress Notes Filed: 09/10/2024 18:40 Note Text: [facility] [place] Paulson is a 23 year old female. Patient presents with: frequent urination: Frequent urge to urinate and pressure x 3 days Patient does self cath while at home 23-year-old female presents today with a complaint of frequent urination urgency and bladder pressure by 3 days. Patient does perform self cath. She feels she has a urinary tract infection. The history is provided by the patient. Review of Systems Constitutional: Negative for fever. HENT: Negative for rhinorrhea. Gastrointestinal: Negative for abdominal pain. Genitourinary: Positive for dysuria and urgency. Neurological: Negative for headaches. Objective BP 118/81 Pulse 89 Temp 36.5 ?C (97.7 ?F) Resp 18 Wt 81.6 kg (180 lb) LMP 07/15/2024 (Exact Date) SpO2 99% BMI 30.90 kg/m? Physical Exam Vitals and nursing note reviewed. Constitutional: Appearance: Normal appearance. She is not ill-appearing. HENT: Head: Normocephalic and atraumatic. Eyes: Conjunctiva/sclera: Conjunctivae normal. Cardiovascular: Rate and Rhythm: Normal rate and regular rhythm. Heart sounds: Normal heart sounds. Pulmonary: Effort: Pulmonary effort is normal. Breath sounds: Normal breath sounds. Abdominal: General: Bowel sounds are normal. Palpations: Abdomen is soft. Tenderness: There is no right CVA tenderness or left CVA tenderness. Musculoskeletal: Cervical back: Neck supple. Lymphadenopathy: Cervical: No cervical adenopathy. Skin: General: Skin is warm and dry. Neurological: General: No focal deficit present. Mental Status: She is alert and oriented to person, place, and time. Psychiatric: Behavior: Behavior normal. Assessment AND Plan Recurrent UTI (urinary tract infection) Based on examination I diagnosed patient with a urinary tract infection. I also ordered a urine culture due to her self cathing to make sure that we are addressing the proper organism. I did prescribe her Macrobid and Pyridium. Orders: nitrofurantoin monohydrate and macrocrystal (MACROBID) 100 mg capsule; Take 1 capsule by mouth two times a day for 5 days. phenazopyridine (PYRIDIUM) 200 mg tablet; Take 1 tablet by mouth three times a day as needed for up to 2 days. Urinary problem Orders: URINALYSIS, DIPSTICK ONLY; Future nitrofurantoin monohydrate and macrocrystal (MACROBID) 100 mg capsule; Take 1 capsule by mouth two times a day for 5 days. phenazopyridine (PYRIDIUM) 200 mg tablet; Take 1 tablet by mouth three times a day as needed for up to 2 days. [facility]03-11-2025 History of Present illness Narrative* Aidan Bains Jr., RN CLINICAL.SIGNAL INSPECTOR - 09/10/2024 6:21 PM EDT [facility] [place] Subjective Madhuri Paulson is a 23 year old female. Patient presents with: frequent urination: Frequent urge to urinate and pressure x 3 days Patient does self cath while at home 23-year-old female presents today with a complaint of frequent urination urgency and bladder pressure by 3 days. Patient does perform self cath. She feels she has a urinary tract infection. The history is provided by the patient. Review of Systems Constitutional: Negative for fever. HENT: Negative for rhinorrhea. Gastrointestinal: Negative for abdominal pain. Genitourinary: Positive for dysuria and urgency. Neurological: Negative for headaches. Objective BP 118/81 Pulse 89 Temp 36.5 C (97.7 F) Resp 18 Wt 81.6 kg (180 lb) LMP 07/15/2024 (ExactDate) SpO2 99% BMI 30.90 kg/m Physical Exam Vitals and nursing note reviewed. Constitutional: Appearance: Normal appearance. She is not ill-appearing. HENT: Head: Normocephalic and atraumatic. Eyes: Conjunctiva/sclera: Conjunctivae normal. Cardiovascular: Rate and Rhythm: Normal rate and regular rhythm. Heart sounds: Normal heart sounds. Pulmonary: Effort: Pulmonary effort is normal. Breath sounds: Normal breath sounds. Abdominal: General: Bowel sounds are normal. Palpations: Abdomen is soft. Tenderness: There is no right CVA tenderness or left CVA tenderness. Musculoskeletal: Cervical back: Neck supple. Lymphadenopathy: Cervical: No cervical adenopathy. Skin: General: Skin is warm and dry. Neurological: General: No focal deficit present. Mental Status: She is alert and oriented to person, place, and time. Psychiatric: Behavior: Behavior normal. Assessment & Plan Recurrent UTI (urinary tract infection) Based on examination I diagnosed patient with a urinary tract infection. I also ordered a urine culture due to her self cathing to make sure that we are addressing the proper organism. I did prescribe her Macrobid and Pyridium. Orders: nitrofurantoin monohydrate and macrocrystal (MACROBID) 100 mg capsule; Take 1 capsule by mouth two times a day for 5 days. phenazopyridine (PYRIDIUM) 200 mg tablet; Take 1 tablet by mouth three times a day as needed for upto 2 days. Urinary problem Orders: URINALYSIS, DIPSTICK ONLY; Future nitrofurantoin monohydrate and macrocrystal (MACROBID) 100 mg capsule; Take 1 capsule by mouth two times a day for 5 days. phenazopyridine (PYRIDIUM) 200 mg tablet; Take 1 tablet by mouth three times a day as needed for upto 2 days. MDM Procedures documented in this encounterBellevue Hospital03-03-2025 Nuclear medicine Diagnostic study note [facility] [address] [place] [address] [id number] Gastric Emptying Study - 4 HR MR#: [id number] Acct: [id number] Name: MADHURI PAULSON Rep #: [id number] : 2000 F 23 From: Pravin Irizarry MD PCP: Dr. Juan Manuel Antonio DO Status: RE G CLI Study:Gastric Emptying Study - 4 HR Date of E xam: 09/02/24 Exam# [id number] Ordering Dr: Mqiuel Juárez DO PROCEDURE: GASTRIC EMPTYING STUDY - 4 HR REASON FOR EXAM: Gastroparesis. TECHNIQUE: The patient ingested a mixture of 1.1 mCi of sulfur colloid and oatmeal. Gastric emptying study wasperformed up to 4 hours. RADIOPHARMACEUTICAL: 1.1 mCi of technetium sulfur colloid. COMPARISON: None. FINDINGS: At 4 hours thymic Mrs. At 1 hour, 36% of the radiopharmaceutical exited the stomach. NM/Gastric Emptying Study - 4 HR IMPRESSION: Normal gastric emptying study at 4 hours. Reading Location: [id number] CC: Dr. Juan Manuel Antonio DO; Colton Juárez, ~ Bilingual Case Manager: Signed [facility]02-24-2025 History of Present illness Narrative* Caitlin Curtis APRN.SIGNAL INSPECTOR - 08/26/2024 10:00 AM EST Chief Complaint Patient presents with: follow up on lft foot HPI Madhuri Paulson is a 23 year old female who presents here today for Above Complaints. Madhuri is an established patient of Dr. Paco DO. Concerns today... Was seen on 08/21 d/t recurrent cellulitis of L foot and toe d/t open blister in between toes. Here today to follow-up and make sure improvement. Pt reports area is not red or warm to touch anymore. Blister is still open and draining slightly. No other concerns or complaints. Past medical history, appointments, medications, allergies reviewed. Previous Medical History PAST MEDICAL HISTORY Diagnosis Date Acute pain of right shoulder 01/21/2019 Chiari malformation type I (HCC) Lymphedema Menarche 09/2011 PMH - PAST MEDICAL HISTORY OF spina bifida PMH - PAST MEDICAL HISTORY OF 01/07/2004 color vision-normal PMH - PAST MEDICAL HISTORY OF bilateral club feet PMH - PAST MEDICAL HISTORY OF broken leg in 10/09 Previous Surgical History PAST SURGICAL HISTORY Procedure Laterality Date AFP, OPEN SPINA BIFIDA ([facility]) Spina Bifida surgery during infancy APPENDICONEOVESICOSTOMY 06/20/2016 APPENDICONEOVESICOSTOMY 12/2016 COLONOSCOPY FLX DX W/COLLJ SPEC WHEN PFRMD 10/24/2017 Colonoscopy KNEE RIGHT OP SURGERY 10/2012 right knee PAST SURGICAL HISTORY OF Bilateral Foot reconstruction x 4-5 times PAST SURGICAL HISTORY OF laser surgery on birthmark PAST SURGICAL HISTORY OF 10/2010 right knee surgery TONSILLECTOMY & ADENOIDECTOMY <AGE 10 Family History FAMILY HISTORY Problem Relation Age of Onset Uterine Cancer Mother Ovarian cancer Mother Anesthesia Problems Maternal Uncle Patient's mother states her brother coded during a procedure as a baby. Not actually diagnosed withanything specific and did not undergo further anesthesia as an adult. Hypertension Maternal Grandmother Breast Cancer Maternal Grandmother Heart Maternal Grandfather Renal Cell Cancer Maternal Grandfather Thyroid Cancer Maternal Grandfather Hypertension Paternal Grandmother Hypertension Paternal Grandfather Heart Paternal Grandfather Patient Allergies ALLERGIES Allergen Reactions Banana Unknown Per diagnosis Latex Unknown Per diagnosis Current Medications Current Outpatient Medications on File Prior to Visit Medication Sig cephALEXin (KEFLEX) 500 mg capsule Take 1 capsule by mouth four times daily for 10 days. Phentermine HCl 37.5 mg tablet Take 1 tablet by mouth every afternoon. Drospirenone-Ethinyl Estradiol (PHILIP, 28,) 3-0.02 mg per tablet Take 1 tablet by mouth once daily. Ok to skip placebo week and start on new pack of pills metFORMIN (GLUCOPHAGE) 500 mg tablet Take 1 tablet by mouth daily with dinner. Ascorbic Acid 1,000 mg tablet Take 1 tablet by mouth once daily. albuterol HFA (PROVENTIL HFA, VENTOLIN HFA) 90 mcg/actuation inhaler Inhale 2 Puffs as instructed. Catheter (FEMALE CATHETER) 14 Fr misc 14 [place]an, 16 inch female straight tip intermittent catheter,to use q6 hrs prn urinary retention B.animalis,bifid,infantis,long (PROBIOTIC 4X ORAL) Take 1 capsule by mouth once daily. polyethylene glycol 3350 (MIRALAX) 17 gram/dose powder One quarter capful added to 800 cc of water and then flushed through the Banda stoma No current facility-administered medications on file prior to visit. Social History Social History Tobacco Use Smoking status: Never Passive exposure: Never Smokeless tobacco: Never Tobacco comments: no smokers in home Vaping Use Vaping status: Never Used Substance Use Topics Alcohol use: Yes Comment: Not weekly Drug use: No REVIEW OF SYSTEMS: as above Reviewed relevant PMHx, PSHx, Social Hx, current medications and allergies. Review of Symptoms REVIEW OF SYSTEMS See HPI. EXAM: BP 124/74 (BP Site: Left Arm) Pulse 113 Temp 37.2 C (98.9 F) Resp 12 Wt 83 kg (183 lb) LMP 07/15/2024 (Exact Date) SpO2 96% BMI 31.41 kg/m General Appearance: Well appearing, alert, in no acute distress, well-hydrated, well nourished.. Skin: Skin color, texture, turgor normal, no suspicious rashes or lesions, Positives: cellulitis improved and resolved, blister without active drainage scabbed over between 4th and 5th digits. Extremities: No deformities, edema, skin discoloration, clubbing or cyanosis. Good capillary refill. . Health Maintenance List Hepatitis C Screening Never done Cervical Cancer Screening due on 11/16/2024 Influenza Vaccine(1) due on 12/30/2024 Covid-19 Vaccine( season) due on 05/31/2025 Depression Screening due on 12/26/2024 Anxiety Screening due on 12/26/2024 DTaP,Tdap,Td Vaccine(8 - Td or Tdap) due on 01/27/2031 Hepatitis B Vaccine Completed HPV Vaccine Completed HIV Screening Completed ASSESSMENT/PLAN: 1. Cellulitis of toe of left foot - ICD9: 681.10, ICD10: L03.032 Greatly improved. Continue to take entire antibiotic regimen and continue to monitor. RTO as needed. Prescription instructions reviewed with patient as applicable. Potential red flag symptoms discussed with the patient. Reviewed appropriate action plan to take if red flag symptoms occur. Patient agreeable to treatment plan. Caitlin Andino APRN.FANNY [address] [place] [address] documented in [facility] encounterB[facility]02-24-2025 NoteHNO ID: [id number] Author: CAITLIN CURTIS APRN.FANNY Service: ? Author Type: Nurse Practitioner Type: Progress Notes Filed: 08/26/2024 10:16 Note Text: Chief Complaint Patient presents with: follow up on lft foot HPI Madhuri Paulson is a 23 year old female who presents here today for Above Complaints. Madhuri is an established patient of Dr. Paco DO. Concerns today... Was seen on 08/21 d/t recurrent cellulitis of L foot and toe d/t open blister in between toes. Here today to follow-up and make sure improvement. Pt reports area is not red or warm to touch anymore. Blister is still open and draining slightly. No other concerns or complaints. Past medical history, appointments, medications, allergies reviewed. Previous Medical History PAST MEDICAL HISTORY Diagnosis Date Acute pain of right shoulder 01/21/2019 Chiari malformation type I (HCC) Lymphedema Menarche 09/2011 PMH - PAST MEDICAL HISTORY OF spina bifida PMH - PAST MEDICAL HISTORY OF 01/07/2004 color vision-normal PMH - PAST MEDICAL HISTORY OF bilateral club feet PMH - PAST MEDICAL HISTORY OF broken leg in 10/09 Previous Surgical History PAST SURGICAL HISTORY Procedure Laterality Date AFP, OPEN SPINA BIFIDA ([facility]) Spina Bifida surgery during infancy APPENDICONEOVESICOSTOMY 06/20/2016 APPENDICONEOVESICOSTOMY 12/2016 COLONOSCOPY FLX DX W/COLLJ SPEC WHEN PFRMD 10/24/2017 Colonoscopy KNEE RIGHT OP SURGERY 10/2012 right knee PAST SURGICAL HISTORY OF Bilateral Foot reconstruction x 4-5 times PAST SURGICAL HISTORY OF laser surgery on birthmark PAST SURGICAL HISTORY OF 10/2010 right knee surgery TONSILLECTOMY AND ADENOIDECTOMY Family History FAMILY HISTORY Problem Relation Age of Onset Uterine Cancer Mother Ovarian cancer Mother Anesthesia Problems Maternal Uncle Patient's mother states her brother coded during a procedure as a baby. Not actually diagnosed with anything specific and did not undergo further anesthesia as an adult. Hypertension Maternal Grandmother Breast Cancer Maternal Grandmother Heart Maternal Grandfather Renal Cell Cancer Maternal Grandfather Thyroid Cancer Maternal Grandfather Hypertension Paternal Grandmother Hypertension Paternal Grandfather Heart Paternal Grandfather Patient Allergies ALLERGIES Allergen Reactions Banana Unknown Per diagnosis Latex Unknown Per diagnosis Current Medications Current Outpatient Medications on File Prior to Visit Medication Sig cephALEXin (KEFLEX) 500 mg capsule Take 1 capsule by mouth four times daily for 10 days. Phentermine HCl 37.5 mg tablet Take 1 tablet by mouth every afternoon. Drospirenone-Ethinyl Estradiol (PHILIP, 28,) 3-0.02 mg per tablet Take 1 tablet by mouth once daily. Ok to skip placebo week and start on new pack of pills metFORMIN (GLUCOPHAGE) 500 mg tablet Take 1 tablet by mouth daily with dinner. Ascorbic Acid 1,000 mg tablet Take 1 tablet by mouth once daily. albuterol HFA (PROVENTIL HFA, VENTOLIN HFA) 90 mcg/actuation inhaler Inhale 2 Puffs as instructed. Catheter (FEMALE CATHETER) 14 Fr misc 14 [place]an, 16 inch female straight tip intermittent catheter, to use q6 hrs prn urinary retention B.animalis,bifid,infantis,long (PROBIOTIC 4X ORAL) Take 1 capsule by mouth once daily. polyethylene glycol 3350 (MIRALAX) 17 gram/dose powder One quarter capful added to 800 cc of water and then flushed through the Banda stoma No current facility-administered medications on file prior to visit. Social History Social History Tobacco Use Smoking status: Never Passive exposure: Never Smokeless tobacco: Never Tobacco comments: no smokers in home Vaping Use Vaping status: Never Used Substance Use Topics Alcohol use: Yes Comment: Not weekly Drug use: No REVIEW OF SYSTEMS: as above Reviewed relevant PMHx, PSHx, Social Hx, current medications and allergies. Review of Symptoms REVIEW OF SYSTEMS See HPI. EXAM: BP 124/74 (BP Site: Left Arm) Pulse 113 Temp 37.2 ?C (98.9 ?F) Resp 12 Wt 83 kg (183 lb) LMP 07/15/2024 (Exact Date) SpO2 96% BMI 31.41 kg/m? General Appearance: Well appearing, alert, in no acute distress, well-hydrated, well nourished.. Skin: Skin color, texture, turgor normal, no suspicious rashes or lesions, Positives: cellulitis improved and resolved, blister without active drainage scabbed over between 4th and 5th digits. Extremities: No deformities, edema, skin discoloration, clubbing or cyanosis. Good capillary refill. . Health Maintenance List Hepatitis C Screening Never done Cervical Cancer Screening due on 11/16/2024 Influenza Vaccine(1) due on 12/30/2024 Covid-19 Vaccine(3 - season) due on 05/31/2025 Depression Screening due on 12/26/2024 Anxiety Screening due on 12/26/2024 DTaP,Tdap,Td Vaccine(8 - Td or Tdap) due on 01/27/2031 Hepatitis B Vaccine Completed HPV Vaccine Completed HIV Screening Complete (more content not included)...[facility] 08-21-2024 History of Present illness Narrative* Caitlin Curtis, RN CLINICAL.SIGNAL INSPECTOR - 08/21/2024 2:40 PM EST Chief Complaint Patient presents with: infectiom back in left toe or foot HPI Madhuri Paulson is a 23 year old female who presents here today for Above Complaints. Madhuri is an established patient of Dr. Paco DO. Per [facility] yesterday: Dear Dr. Antonio team, I apologize I keep bothering you guys. Last night I went to shower and noticed my fourth toe on my left foot is swollen, hot, red, and spreading down my foot again. This happened a couple weeks ago but cleared with antibiotics. I put gauze around it with neosporin all night but I m guessing it s infected again by its appearance. I m currently on macrobid for a UTI but I don t believe that is going to help this infection as well. I was hoping I could come in to be seen possibly Monday eveningas I get off work in [employer] at 5:00. Your voicemail was full when I contacted the office this morning so I apologize for sending a message. Thanks. Concerns today... Pt reports L 4th toe with redness, swelling, warmth, and tenderness to touch x 2 days. Redness radiating into top of L foot. There is an open blister in between 4th and 5th toes. Draining yellow color pus. No known injury. Hx of spina bifida so no feeling in feet at baseline. No fever/chills. Pt outlined area of redness last night. She did soak in epsom salt bath which she said did help theredness slightly today. This last episode was end of July. Switched from bactrim to keflex regimen d/t not responding. Keflex regimen worked well and resolved symptoms. Finishing macrobid regimen for UTI in 1-2 days. Past medical history, appointments, medications, allergies reviewed. Previous Medical History PAST MEDICAL HISTORY Diagnosis Date Acute pain of right shoulder 01/21/2019 Chiari malformation type I (HCC) Lymphedema Menarche 09/2011 PMH - PAST MEDICAL HISTORY OF spina bifida PMH - PAST MEDICAL HISTORY OF 01/07/2004 color vision-normal PMH - PAST MEDICAL HISTORY OF bilateral club feet PMH - PAST MEDICAL HISTORY OF broken leg in 10/09 Previous Surgical History PAST SURGICAL HISTORY Procedure Laterality Date AFP, OPEN SPINA BIFIDA ([facility]) Spina Bifida surgery during infancy APPENDICONEOVESICOSTOMY 06/20/2016 APPENDICONEOVESICOSTOMY 12/2016 COLONOSCOPY FLX DX W/COLLJ SPEC WHEN PFRMD 10/24/2017 Colonoscopy KNEE RIGHT OP SURGERY 10/2012 right knee PAST SURGICAL HISTORY OF Bilateral Foot reconstruction x 4-5 times PAST SURGICAL HISTORY OF laser surgery on birthmark PAST SURGICAL HISTORY OF 10/2010 right knee surgery TONSILLECTOMY & ADENOIDECTOMY <AGE 10 Family History FAMILY HISTORY Problem Relation Age of Onset Uterine Cancer Mother Ovarian cancer Mother Anesthesia Problems Maternal Uncle Patient's mother states her brother coded during a procedure as a baby. Not actually diagnosed withanything specific and did not undergo further anesthesia as an adult. Hypertension Maternal Grandmother Breast Cancer Maternal Grandmother Heart Maternal Grandfather Renal Cell Cancer Maternal Grandfather Thyroid Cancer Maternal Grandfather Hypertension Paternal Grandmother Hypertension Paternal Grandfather Heart Paternal Grandfather Patient Allergies ALLERGIES Allergen Reactions Banana Unknown Per diagnosis Latex Unknown Per diagnosis Current Medications Current Outpatient Medications on File Prior to Visit Medication Sig Phentermine HCl 37.5 mg tablet Take 1 tablet by mouth every afternoon. nitrofurantoin monohydrate and macrocrystal (MACROBID) 100 mg capsule Take 1 capsule by mouth two times a day for 7 days. Drospirenone-Ethinyl Estradiol (PHILIP, 28,) 3-0.02 mg per tablet Take 1 tablet by mouth once daily. Ok to skip placebo week and start on new pack of pills metFORMIN (GLUCOPHAGE) 500 mg tablet Take 1 tablet by mouth daily with dinner. Ascorbic Acid 1,000 mg tablet Take 1 tablet by mouth once daily. albuterol HFA (PROVENTIL HFA, VENTOLIN HFA) 90 mcg/actuation inhaler Inhale 2 Puffs as instructed. Catheter (FEMALE CATHETER) 14 Fr misc 14 [place]an, 16 inch female straight tip intermittent catheter,to use q6 hrs prn urinary retention B.animalis,bifid,infantis,long (PROBIOTIC 4X ORAL) Take 1 capsule by mouth once daily. polyethylene glycol 3350 (MIRALAX) 17 gram/dose powder One quarter capful added to 800 cc of water and then flushed through the Banda stoma No current facility-administered medications on file prior to visit. Social History Social History Tobacco Use Smoking status: Never Passive exposure: Never Smokeless tobacco: Never Tobacco comments: no smokers in home Vaping Use Vaping status: Never Used Substance Use Topics Alcohol use: Yes Comment: Not weekly Drug use: No REVIEW OF SYSTEMS: as above Reviewed relevant PMHx, PSHx, Social Hx, current medications and allergies. Review of Symptoms REVIEW OF SYSTEMS See HPI. EXAM: BP 112/72 (BP Site: Left Arm, BP Position: Sitting, BP Cuff Size: Large Adult) Pulse 118 Wt 83.3 kg (183 lb 9.6 oz) LMP 07/15/2024 (Exact Date) SpO2 98% BMI 31.51 kg/m General Appearance: Well appearing, alert, in no acute distress, well-hydrated, well nourished.. Skin: Skin color, texture, turgor normal, no suspicious rashes or lesions, Positives: 4th digit of L foot swollen, red, and tender. Redness mildly radiating into top of foot. Pt outlined area of redness last night. Open blister between 4th and 5th digit with minimal purulent drainage. Extremities: No deformities, edema, skin discoloration, clubbing or cyanosis. Good capillary refill. . Health Maintenance List Hepatitis C Screening Never done Cervical Cancer Screening due on 11/16/2024 Influenza Vaccine(1) due on 12/30/2024 Covid-19 Vaccine( season) due on 05/31/2025 Depression Screening due on 12/26/2024 Anxiety Screening due on 12/26/2024 DTaP,Tdap,Td Vaccine(8 - Td or Tdap) due on 01/27/2031 Hepatitis B Vaccine Completed HPV Vaccine Completed HIV Screening Completed ASSESSMENT/PLAN: 1. Cellulitis of toe of left foot - ICD9: 681.10, ICD10: L03.032 - Begin treatment with Cephalaxin (Keflex) x 10 days. - No lymphangetic streaking, this was defined for patient to watch for and to seek medical care immediately if appears - Area of cellulitis defined with pen, seek further attention if this area continues to enlarge - Follow up for recheck in 3-4 days - CEPHALEXIN 500 MG CAPSULE RTO on Monday to reassess. Prescription instructions reviewed with patient as applicable. Potential red flag symptoms discussed with the patient. Reviewed appropriate action plan to take if red flag symptoms occur. Patient agreeable to treatment plan. Caitlin Andino APRN.FANNY [address] [place] [address] documented in this encounterB[facility]02-19-2025 NoteHNO ID: [id number] Author: CAITLIN CURTIS APRN.SIGNAL INSPECTOR Service: ? Author Type: Nurse Practitioner Type: Progress Notes Filed: 08/21/2024 15:18 Note Text: Chief Complaint Patient presents with: infectiom back in left toe or foot HPI Madhuri Paulson is a 23 year old female who presents here today for Above Complaints. Madhuri is an established patient of Dr. Paco DO. Per [facility] yesterday: Dear Dr. Antonio team, I apologize I keep bothering you guys. Last night I went to shower and noticed my fourth toe on my left foot is swollen, hot, red, and spreading down my foot again. This happened a couple weeks ago but cleared with antibiotics. I put gauze around it with neosporin all night but I?m guessing it?s infected again by its appearance. I?m currently on macrobid for a UTI but I don?t believe that is going to help this infection as well. I was hoping I could come in to be seen possibly Monday evening as I get off work in [employer] at 5:00. Your voicemail was full when I contacted the office this morning so I apologize for sending a message. Thanks. Concerns today... Pt reports L 4th toe with redness, swelling, warmth, and tenderness to touch x 2 days. Redness radiating into top of L foot. There is an open blister in between 4th and 5th toes. Draining yellow color pus. No known injury. Hx of spina bifida so no feeling in feet at baseline. No fever/chills. Pt outlined area of redness last night. She did soak in epsom salt bath which she said did help the redness slightly today. This last episode was end of July. Switched from bactrim to keflex regimen d/t not responding. Keflex regimen worked well and resolved symptoms. Finishing macrobid regimen for UTI in 1-2 days. Past medical history, appointments, medications, allergies reviewed. Previous Medical History PAST MEDICAL HISTORY Diagnosis Date Acute pain of right shoulder 01/21/2019 Chiari malformation type I (HCC) Lymphedema Menarche 09/2011 PMH - PAST MEDICAL HISTORY OF spina bifida PMH - PAST MEDICAL HISTORY OF 01/07/2004 color vision-normal PMH - PAST MEDICAL HISTORY OF bilateral club feet PMH - PAST MEDICAL HISTORY OF broken leg in 10/09 Previous Surgical History PAST SURGICAL HISTORY Procedure Laterality Date AFP, OPEN SPINA BIFIDA ([facility]) Spina Bifida surgery during infancy APPENDICONEOVESICOSTOMY 06/20/2016 APPENDICONEOVESICOSTOMY 12/2016 COLONOSCOPY FLX DX W/COLLJ SPEC WHEN PFRMD 10/24/2017 Colonoscopy KNEE RIGHT OP SURGERY 10/2012 right knee PAST SURGICAL HISTORY OF Bilateral Foot reconstruction x 4-5 times PAST SURGICAL HISTORY OF laser surgery on birthmark PAST SURGICAL HISTORY OF 10/2010 right knee surgery TONSILLECTOMY AND ADENOIDECTOMY Family History FAMILY HISTORY Problem Relation Age of Onset Uterine Cancer Mother Ovarian cancer Mother Anesthesia Problems Maternal Uncle Patient's mother states her brother coded during a procedure as a baby. Not actually diagnosed with anything specific and did not undergo further anesthesia as an adult. Hypertension Maternal Grandmother Breast Cancer Maternal Grandmother Heart Maternal Grandfather Renal Cell Cancer Maternal Grandfather Thyroid Cancer Maternal Grandfather Hypertension Paternal Grandmother Hypertension Paternal Grandfather Heart Paternal Grandfather Patient Allergies ALLERGIES Allergen Reactions Banana Unknown Per diagnosis Latex Unknown Per diagnosis Current Medications Current Outpatient Medications on File Prior to Visit Medication Sig Phentermine HCl 37.5 mg tablet Take 1 tablet by mouth every afternoon. nitrofurantoin monohydrate and macrocrystal (MACROBID) 100 mg capsule Take 1 capsule by mouth two times a day for 7 days. Drospirenone-Ethinyl Estradiol (PHILIP, 28,) 3-0.02 mg per tablet Take 1 tablet by mouth once daily. Ok to skip placebo week and start on new pack of pills metFORMIN (GLUCOPHAGE) 500 mg tablet Take 1 tablet by mouth daily with dinner. Ascorbic Acid 1,000 mg tablet Take 1 tablet by mouth once daily. albuterol HFA (PROVENTIL HFA, VENTOLIN HFA) 90 mcg/actuation inhaler Inhale 2 Puffs as instructed. Catheter (FEMALE CATHETER) 14 Fr misc 14 [place]an, 16 inch female straight tip intermittent catheter, to use q6 hrs prn urinary retention B.animalis,bifid,infantis,long (PROBIOTIC 4X ORAL) Take 1 capsule by mouth once daily. polyethylene glycol 3350 (MIRALAX) 17 gram/dose powder One quarter capful added to 800 cc of water and then flushed through the Banda stoma No current facility-administered medications on file prior to visit. Social History Social History Tobacco Use Smoking status: Never Passive exposure: Never Smokeless tobacco: Never Tobacco comments: no smokers in home Vaping Use Vaping status: Never Used Substance Use Topics Alcohol use: Yes Comment: Not weekly Drug use: No REVIEW OF SYSTEMS: as above Reviewed relev (more content not included)...[facility] 08-19-2024 Telephone encounter Note* Telephone Encounter - Maikol Mendoza OCCA - 08/19/2024 4:25 PM EST TC to patient who verbalized understanding of providers message below. MOLLY Piña [facility]02-17-[facility]25 Miscellaneous Notes* Telephone Encounter - Maikol eMndoza OCCA - 08/19/2024 4:25 PM EST TC to patient who verbalized understanding of providers message below. MOLLY Piña * Telephone Encounter - Caitlin Curtis APRN.CNP - 08/19/2024 4:16 PM EST Yes, this will treat it. Take careCaitlin APRN.FANNY * Telephone Encounter - Lata Segura MA - 08/19/2024 3:08 PM EST Images from the original note were not included. Pt wrote into office regarding C&S results. Was seen in [facility] and started on Macrobid. Asking if this abx will cover the infection she has. Please advise. Lata Segura MA Pt message: Hi Dr. Antonio s office, I wanted to reach out to make sure the macrobid I was put on Monday will kill the specific bacteriaI have. Thanks! documented in this encounterB[facility]02-17-2025 Telephone encounter Note * Telephone Encounter - Caitlin Curtis APRN.FANNY - 08/19/2024 4:16 PM EST Yes, this will treat it. Take care, Caitlin Curtis APRN.SIGNAL INSPECTOR [facility] Work Phone: [phone]) 302-601402-17-2025 Telephone encounter Note* Telephone Encounter - Lata Segura MA - 08/19/2024 3:08 PM EST Images from the original note were not included. Pt wrote into office regarding C&S results. Was seen in [facility] and started on Macrobid. Asking if this abx will cover the infection she has. Please advise. Lata Segura MA Pt message: Hi Dr. Antonio s office, I wanted to reach out to make sure the macrobid I was put on Monday will kill the specific bacteriaI have. Thanks! [facility]02-[facility] Telephone encounter Note* Telephone Encounter - Lata Segura MA - 08/19/2024 3:04 PM EST TE started and routed to PCP to advise. Pt notified of this. Lata Segura MA [facility]02-17-[facility] Miscellaneous Notes* Telephone Encounter - Lata Segura MA - 08/19/2024 3:04 PM EST TE started and routed to PCP to advise. Pt notified of this. Lata Segura MA documented in this encounterBellevue Hospital02-14-2025 Instructions* Patient Instructions* Myah Argueta MD - 08/16/2024 7:43 PM EST URINARY TRACT INFECTION GENERAL INFORMATION: A urinary tract infection (UTI) is an infection of the bladder or kidneys. A bladder infection, called cystitis, is the more common type. If the infection travels up to the kidneys, it is called pyelonephritis. This can be more serious. UTIs are a common problem in women. Having sexual relations can leave a woman more susceptible to developing a UTI, but it is not sexually transmitted like gonorrhea. Some women have a problem with recurrent UTIs. INSTRUCTIONS: 1. Your doctor prescribed an antibiotic to treat the UTI. Take exactly as directed. Be sure to takeall the medication prescribed, even if your symptoms disappear. If you stop treatment early, the infection may not be fully treated and the symptoms could come back again. 2. Get plenty of rest. You may take acetaminophen for fever and aches. 3. Drink 6 to 8 glasses of fluids, especially water, every day. This helps wash out germs from yoururinary tract. Cranberry juice or other sources of vitamin C are also good for you. 4. Urinate often, as soon as you feel the urge. Empty your bladder completely. Urinate before and after you have sex. 5. Always wipe from front to back after going to the bathroom. This pushes germs away from your bladder, rather than towards it. 6. Showers are better than baths, and you should wash the genital area daily. Avoid bubble bath or bath oils if you do take a bath. 7. Wear underwear and pantyhose with a cotton crotch. CONTACT YOUR DOCTOR: 1. You have a temperature over 102F (38.8C) after 48 hours on medication. 2. You notice blood in your urine. 3. Your symptoms don't improve in 2 days. 4. You develop nausea, vomiting, diarrhea, or a rash. 5. You develop new or unexplained symptoms. These may be related to the medication you are taking. 6. Your symptoms return after you finish treatment. GO TO THE EMERGENCY DEPARTMENT IF: You develop vomiting and can't keep your medication or fluids down. documented in this encounterBelle[facility]02-14-2025 NoteHNO ID: [id number] Author: MYAH ARGUETA MD Service: ? Author Type: Physician Type: Progress Notes Filed: 08/16/2024 19:51 Note Text: SUBJECTIVE: Madhuri Paulson is a 23 year old female here today acutely because of having positive UA. Patient with history of recurrent UTIs due to having spina bifida. She had a standing order by her primary care physician and went into the lab yesterday due to increased urinary odor. The patient saw her lab results today and wanted to get treatment for over the weekend. She is without fever or chills. No nausea or vomiting. Review of her labs indicate previous E. coli infections. Patient does have persistent nitrites and leukocytes esterase in her urine. Previous UAs that were positive confirm UTIs had higher nitrates and leukocytes esterase. ALLERGIES Allergen Reactions Banana Unknown Per diagnosis Latex Unknown Per diagnosis PAST MEDICAL HISTORY Diagnosis Date Acute pain of right shoulder 01/21/2019 Chiari malformation type I (HCC) Lymphedema Menarche 09/2011 PMH - PAST MEDICAL HISTORY OF spina bifida PMH - PAST MEDICAL HISTORY OF 01/07/2004 color vision-normal PMH - PAST MEDICAL HISTORY OF bilateral club feet PMH - PAST MEDICAL HISTORY OF broken leg in 10/09 PAST SURGICAL HISTORY Procedure Laterality Date AFP, OPEN SPINA BIFIDA ([facility]) Spina Bifida surgery during infancy APPENDICONEOVESICOSTOMY 06/20/2016 APPENDICONEOVESICOSTOMY 12/2016 COLONOSCOPY FLX DX W/COLLJ SPEC WHEN PFRMD 10/24/2017 Colonoscopy KNEE RIGHT OP SURGERY 10/2012 right knee PAST SURGICAL HISTORY OF Bilateral Foot reconstruction x 4-5 times PAST SURGICAL HISTORY OF laser surgery on birthmark PAST SURGICAL HISTORY OF 10/2010 right knee surgery TONSILLECTOMY AND ADENOIDECTOMY Social History Tobacco Use Smoking status: Never Passive exposure: Never Smokeless tobacco: Never Tobacco comments: no smokers in home Vaping Use Vaping status: Never Used Substance Use Topics Alcohol use: Yes Comment: Not weekly Drug use: No Current Outpatient Medications on File Prior to Visit Medication Sig Phentermine HCl 37.5 mg tablet Take 1 tablet by mouth every afternoon. Drospirenone-Ethinyl Estradiol (PHILIP, Yvette,) 3-0.02 mg per tablet Take 1 tablet by mouth once daily. Ok to skip placebo week and start on new pack of pills metFORMIN (GLUCOPHAGE) 500 mg tablet Take 1 tablet by mouth daily with dinner. Ascorbic Acid 1,000 mg tablet Take 1 tablet by mouth once daily. albuterol HFA (PROVENTIL HFA, VENTOLIN HFA) 90 mcg/actuation inhaler Inhale 2 Puffs as instructed. Catheter (FEMALE CATHETER) 14 Fr misc 14 Chilean, 16 inch female straight tip intermittent catheter, to use q6 hrs prn urinary retention B.animalis,bifid,infantis,long (PROBIOTIC 4X ORAL) Take 1 capsule by mouth once daily. polyethylene glycol 3350 (MIRALAX) 17 gram/dose powder One quarter capful added to 800 cc of water and then flushed through the Banda stoma No current facility-administered medications on file prior to visit. ROS: No fever, chills, nausea, vomiting, diarrhea, constipation, shortness of breath, cp, abdominal pain or headache. PHYSICAL EXAMINATION: BP 139/99 Pulse 104 Temp 36.6 ?C (97.8 ?F) Resp 18 Wt 81.2 kg (179 lb) LMP 07/15/2024 (Exact Date) SpO2 99% BMI 30.73 kg/m? General appearance: Well appearing, alert, in no acute distress, well-hydrated, well nourished. and Obese Skin: Skin color, texture, turgor normal, no suspicious rashes or lesions Head: Normocephalic, no masses, lesions, tenderness or abnormalities Lungs: Lungs clear to auscultation. No wheezing, rhonchi, rales. Heart: RRR without murmur, gallop, or rubs. No ectopy Abdomen: Normal abdominal exam, Abdomen soft, non-tender. Bowel sounds normal. No masses, organomegaly, Negative CVA tenderness Extremities: No deformities, edema, skin discoloration, clubbing or cyanosis. Good capillary refill. Musculoskeletal: No joint swelling or tenderness Peripheral pulses: Normal Neuro: Oriented X 3 ASSESSMENT/PLAN: 1. Recurrent UTI (urinary tract infection) - ICD9: 599.0, ICD10: N39.0 recurrent - UA positive for gladys esterase and nitrates - Begin treatment with Macrobid 100 mg BID for 7 days - Patient education for prevention given Awaiting urine culture result Follow-up with primary care provider in 3 to 5 days - NITROFURANTOIN MONOHYDRATE AND MACROCRYSTAL 100 MG ORAL CAP Myah Argueta [facility]02-14-2025 History of Present illness Narrative* Myah Argueta MD - 08/16/2024 7:38 PM EST SUBJECTIVE: Madhuri Paulson is a 23 year old female here today acutely because of having positive UA. Patientwith history of recurrent UTIs due to having spina bifida. She had a standing order by her primary care physician and went into the lab yesterday due to increased urinary odor. The patient saw her lab results today and wanted to get treatment for over the weekend. She is without fever or chills. Nonausea or vomiting. Review of her labs indicate previous E. coli infections. Patient does have persistent nitrites and leukocytes esterase in her urine. Previous UAs that were positive confirm UTIs had higher nitrates and leukocytes esterase. ALLERGIES Allergen Reactions Banana Unknown Per diagnosis Latex Unknown Per diagnosis PAST MEDICAL HISTORY Diagnosis Date Acute pain of right shoulder 01/21/2019 Chiari malformation type I (HCC) Lymphedema Menarche 09/2011 PMH - PAST MEDICAL HISTORY OF spina bifida PMH - PAST MEDICAL HISTORY OF 01/07/2004 color vision-normal PMH - PAST MEDICAL HISTORY OF bilateral club feet PMH - PAST MEDICAL HISTORY OF broken leg in 10/09 PAST SURGICAL HISTORY Procedure Laterality Date AFP, OPEN SPINA BIFIDA ([facility]) Spina Bifida surgery during infancy APPENDICONEOVESICOSTOMY 06/20/2016 APPENDICONEOVESICOSTOMY 12/2016 COLONOSCOPY FLX DX W/COLLJ SPEC WHEN PFRMD 10/24/2017 Colonoscopy KNEE RIGHT OP SURGERY 10/2012 right knee PAST SURGICAL HISTORY OF Bilateral Foot reconstruction x 4-5 times PAST SURGICAL HISTORY OF laser surgery on birthmark PAST SURGICAL HISTORY OF 10/2010 right knee surgery TONSILLECTOMY & ADENOIDECTOMY <AGE 10 Social History Tobacco Use Smoking status: Never Passive exposure: Never Smokeless tobacco: Never Tobacco comments: no smokers in home Vaping Use Vaping status: Never Used Substance Use Topics Alcohol use: Yes Comment: Not weekly Drug use: No Current Outpatient Medications on File Prior to Visit Medication Sig Phentermine HCl 37.5 mg tablet Take 1 tablet by mouth every afternoon. Drospirenone-Ethinyl Estradiol (PHILIP, 28,) 3-0.02 mg per tablet Take 1 tablet by mouth once daily. Ok to skip placebo week and start on new pack of pills metFORMIN (GLUCOPHAGE) 500 mg tablet Take 1 tablet by mouth daily with dinner. Ascorbic Acid 1,000 mg tablet Take 1 tablet by mouth once daily. albuterol HFA (PROVENTIL HFA, VENTOLIN HFA) 90 mcg/actuation inhaler Inhale 2 Puffs as instructed. Catheter (FEMALE CATHETER) 14 Fr misc 14 Chilean, 16 inch female straight tip intermittent catheter,to use q6 hrs prn urinary retention B.animalis,bifid,infantis,long (PROBIOTIC 4X ORAL) Take 1 capsule by mouth once daily. polyethylene glycol 3350 (MIRALAX) 17 gram/dose powder One quarter capful added to 800 cc of water and then flushed through the Banda stoma No current facility-administered medications on file prior to visit. ROS: No fever, chills, nausea, vomiting, diarrhea, constipation, shortness of breath, cp, abdominal painor headache. PHYSICAL EXAMINATION: BP 139/99 Pulse 104 Temp 36.6 C (97.8 F) Resp 18 Wt 81.2 kg (179 lb) LMP 07/15/2024 (Exact Date) SpO2 99% BMI 30.73 kg/m General appearance: Well appearing, alert, in no acute distress, well-hydrated, well nourished. andObese Skin: Skin color, texture, turgor normal, no suspicious rashes or lesions Head: Normocephalic, no masses, lesions, tenderness or abnormalities Lungs: Lungs clear to auscultation. No wheezing, rhonchi, rales. Heart: RRR without murmur, gallop, or rubs. No ectopy Abdomen: Normal abdominal exam, Abdomen soft, non-tender. Bowel sounds normal. No masses, organomegaly, Negative CVA tenderness Extremities: No deformities, edema, skin discoloration, clubbing or cyanosis. Good capillary refill. Musculoskeletal: No joint swelling or tenderness Peripheral pulses: Normal Neuro: Oriented X 3 ASSESSMENT/PLAN: 1. Recurrent UTI (urinary tract infection) - ICD9: 599.0, ICD10: N39.0 recurrent - UA positive for gladys esterase and nitrates - Begin treatment with Macrobid 100 mg BID for 7 days - Patient education for prevention given Awaiting urine culture result Follow-up with primary care provider in 3 to 5 days - NITROFURANTOIN MONOHYDRATE & MACROCRYSTAL 100 MG ORAL CAP Myah Argueta MD [facility] Telephone encounter Note * Telephone Encounter - Deanne Smallwood MA - 08/12/2024 6:39 PM EST Pt notified she needs to make an appointment. Deanne Smallwood MA [facility]02-10-2025 Miscellaneous Notes* Telephone Encounter - Deanne Smallwood MA - 08/12/2024 6:39 PM EST Pt notified she needs to make an appointment. Deanne Smallwood MA documented in [facility] encounterB[facility]01-29-[facility]25 Telephone encounter Note * Telephone Encounter - Fernanda Stahl LPN - 07/31/2024 12:08 PM EST Patient notified and appointment cancelled as requested by patient. Patient is improving. Fernanda Stahl LPN [facility]01-29-2025 Miscellaneous Notes* Telephone Encounter - Fernanda Stahl LPN - 07/31/2024 12:08 PM EST Patient notified and appointment cancelled as requested by patient. Patient is improving. Fernanda Stahl LPN * Telephone Encounter - Astrid Cordoba LPN - 07/31/2024 11:37 AM EST Left message to return call. * Telephone Encounter - Shannon Acharya MA - 07/31/2024 11:36 AM EST Left message to return call Shannon Acharya MA * Telephone Encounter - Caitlin Curtis APRN.FANNY - 07/31/2024 7:41 AM EST Please call patient and let her know that lab work results look good. No concerns. X-ray is also normal without concerns. I see she called in about cancelling appointment for today due to symptoms all improved. If prior symptoms resolved, OK to cancel but if any concerns at all I would keep appointment so I can look at the area. Thank you, Caitlin Curtis APRN.SIGNAL INSPECTOR documented in this encounterB[facility]01-29-2025 Telephone encounter Note * Telephone Encounter - Astrid Cordoba LPN - 07/31/2024 11:37 AM EST Left message to return call. [facility]01-29-[facility] Telephone encounter Note* Telephone Encounter - Shannon Acharya MA - 07/31/2024 11:36 AM EST Left message to return call Shannon Acharya MA [facility]01-29-2025 Telephone encounter Note* Telephone Encounter - Caitlin Curtis APRN.SIGNAL INSPECTOR - 07/31/2024 7:41 AM EST Please call patient and let her know that lab work results look good. No concerns. X-ray is also normal without concerns. I see she called in about cancelling appointment for today due to symptoms all improved. If prior symptoms resolved, OK to cancel but if any concerns at all I would keep appointment so I can look at the area. Thank you, Caitlin Curtis APRN.SIGNAL INSPECTOR [facility]01-27-2025 Telephone encounter Note* Telephone Encounter - Lata Segura MA - 07/29/2024 10:42 AM EST Pt being seen today by Caitlin Curtis CNP. Lata Segura MA [facility]01-27-2025 Miscellaneous Notes* Telephone Encounter - Lata Segura MA - 07/29/2024 10:42 AM EST Pt being seen today by Caitlin Curtis CNP. Lata Segura MA documented in this encounterBelle[facility]01-27-2025 History of Present illness Narrative* Fletcher Haji Tech - 07/29/2024 10:00 AM EST Radiology Service Progress Note PATIENT NAME: Madhuri Paulson DATE OF SERVICE: July 29, 2024 TIME: 10:03 AM PATIENT IDENTITY VERIFICATION COMPLETED USING TWO (2) IDENTIFIERS: Name and Date of confirmedby patient verbally. FALL SCREENING: Has the patient had 2 falls in the last year or 1 fall with injury or currently using an Ambulatory Assistive Device (Walker, Cane, Wheelchair, Crutches, etc.)? No PATIENT GENDER DATA: Assigned female at . status: : No status:NO. PATIENT RELEVANT IMPLANT DATA REVIEWED: Not Applicable PATIENT PRESENTS WITH AN IMPLANTABLE OR ATTACHED ARCHITECTURAL ASSOCIATE: No RADIOLOGY DEPARTMENT: General X-ray: Exam(s) Completed: Lower Extremity X- Ray(s): Foot, Left PERIPHERAL IV DATA: Not applicable SIGNED BY: Gigi Padilla July 29, 2024 10:03 AM documented in this encounterBellevue Hospital01-27-2025 NoteHNO ID: [id number] Author: FLETCHER HAJI Tech Service: ? Author Type: Technologist Type: Progress Notes Filed: 07/29/2024 10:03 Note Text: Radiology Service Progress Note PATIENT NAME: Madhuri Paulson DATE OF SERVICE: July 29, 2024 TIME: 10:03 AM PATIENT IDENTITY VERIFICATION COMPLETED USING TWO (2) IDENTIFIERS: Name and Date of confirmed by patient verbally. FALL SCREENING: Has the patient had 2 falls in the last year or 1 fall with injury or currently using an Ambulatory Assistive Device (Walker, Cane, Wheelchair, Crutches, etc.)? No PATIENT GENDER DATA: Assigned female at . status: : No status: NO. PATIENT RELEVANT IMPLANT DATA REVIEWED: Not Applicable PATIENT PRESENTS WITH AN IMPLANTABLE OR ATTACHED ARCHITECTURAL ASSOCIATE: No RADIOLOGY DEPARTMENT: General X-ray: Exam(s) Completed: Lower Extremity X-Ray(s): Foot, Left PERIPHERAL IV DATA: Not applicable SIGNED BY: Gigi Padilla July 29, 2024 10:03 [facility]01-27-2025 NoteHNO ID: [id number] Author: CAITLIN CURTIS APRN.SIGNAL INSPECTOR Service: ? Author Type: Nurse Practitioner Type: Progress Notes Filed: 07/29/2024 09:59 Note Text: Chief Complaint Patient presents with: lft second to end toe red swollen into foot ilsa to walk: Has no feeling in foot due to disability HPI Madhuri Paulson is a 23 year old female who presents here today for Above Complaints. Madhuri is an established patient of Dr. Paco DO. Concerns today... Pt was seen in [facility] yesterday d/t L 4th toe red and swollen. No known injury. Hx of spina bifida so no feeling in feet at baseline. Dx with cellulitis and prescribed bactrim BID x 10 days. Pt following up today because symptoms have worsened. Toe is now more red and swollen despite starting antibiotic. Redness is spreading up into top of foot. Pt also reports significant chills last night -- unknown about fever because never took temperature. Past medical history, appointments, medications, allergies reviewed. Previous Medical History PAST MEDICAL HISTORY Diagnosis Date Acute pain of right shoulder 01/21/2019 Chiari malformation type I (HCC) Lymphedema Menarche 09/2011 PMH - PAST MEDICAL HISTORY OF spina bifida PMH - PAST MEDICAL HISTORY OF 01/07/2004 color vision-normal PMH - PAST MEDICAL HISTORY OF bilateral club feet PMH - PAST MEDICAL HISTORY OF broken leg in 10/09 Previous Surgical History PAST SURGICAL HISTORY Procedure Laterality Date AFP, OPEN SPINA BIFIDA ([facility]) Spina Bifida surgery during infancy APPENDICONEOVESICOSTOMY 06/20/2016 APPENDICONEOVESICOSTOMY 12/2016 COLONOSCOPY FLX DX W/COLLJ SPEC WHEN PFRMD 10/24/2017 Colonoscopy KNEE RIGHT OP SURGERY 10/2012 right knee PAST SURGICAL HISTORY OF Bilateral Foot reconstruction x 4-5 times PAST SURGICAL HISTORY OF laser surgery on birthmark PAST SURGICAL HISTORY OF 10/2010 right knee surgery TONSILLECTOMY AND ADENOIDECTOMY Family History FAMILY HISTORY Problem Relation Age of Onset Uterine Cancer Mother Ovarian cancer Mother Anesthesia Problems Maternal Uncle Patient's mother states her brother coded during a procedure as a baby. Not actually diagnosed with anything specific and did not undergo further anesthesia as an adult. Hypertension Maternal Grandmother Breast Cancer Maternal Grandmother Heart Maternal Grandfather Renal Cell Cancer Maternal Grandfather Thyroid Cancer Maternal Grandfather Hypertension Paternal Grandmother Hypertension Paternal Grandfather Heart Paternal Grandfather Patient Allergies ALLERGIES Allergen Reactions Banana Unknown Per diagnosis Latex Unknown Per diagnosis Current Medications Current Outpatient Medications on File Prior to Visit Medication Sig sulfamethoxazole-trimethoprim (BACTRIM DS) 800-160 mg per tablet Take 1 tablet by mouth two times a day for 10 days. Drospirenone-Ethinyl Estradiol (PHILIP, 28,) 3-0.02 mg per tablet Take 1 tablet by mouth once daily. Ok to skip placebo week and start on new pack of pills Phentermine HCl (ADIPEX-P) 37.5 mg tablet Take 1 tablet by mouth once daily for 30 days. BMI 33 metFORMIN (GLUCOPHAGE) 500 mg tablet Take 1 tablet by mouth daily with dinner. Ascorbic Acid 1,000 mg tablet Take 1 tablet by mouth once daily. acetaminophen (TYLENOL) 500 mg tablet 2 tablets by ORAL/FEEDING TUBE route every 8 hours as needed for pain. Catheter (FEMALE CATHETER) 14 Fr misc 14 Chilean, 16 inch female straight tip intermittent catheter, to use q6 hrs prn urinary retention B.animalis,bifid,infantis,long (PROBIOTIC 4X ORAL) Take 1 capsule by mouth once daily. polyethylene glycol 3350 (MIRALAX) 17 gram/dose powder One quarter capful added to 800 cc of water and then flushed through the Bnada stoma albuterol HFA (PROVENTIL HFA, VENTOLIN HFA) 90 mcg/actuation inhaler Inhale 2 Puffs as instructed. (Patient not taking: Reported on 07/28/2024) No current facility-administered medications on file prior to visit. Social History Social History Tobacco Use Smoking status: Never Smokeless tobacco: Never Tobacco comments: no smokers in home Vaping Use Vaping status: Never Used Substance Use Topics Alcohol use: Yes Comment: Not weekly Drug use: No REVIEW OF SYSTEMS: as above Reviewed relevant PMHx, PSHx, Social Hx, current medications and allergies. Review of Symptoms REVIEW OF SYSTEMS See HPI. EXAM: BP 110/70 (BP Site: Left Arm, BP Position: Sitting, BP Cuff Size: Large Adult) Pulse 110 Temp 37.1 ?C (98.7 ?F) Resp 14 Wt 86.6 kg (191 lb) LMP 07/15/2024 (Exact Date) SpO2 99% BMI 32.79 kg/m? General Appearance: Well appearing, alert, in no acute distress, well-hydrated, well nourished.. Skin: Positives: L 4th toe with redness, warmth, and swelling spreading into top of L foot. Head: Normocephalic, no masses, lesions, tenderness or abnormalities. Lungs: Lungs clear to auscultation. No wheezing, rhonchi, r (more content not included)...[facility]01-27-2025 History of Present illness Narrative* Caitlin Curtis APRN.SIGNAL INSPECTOR - 07/29/2024 9:09 AM EST Chief Complaint Patient presents with: lft second to end toe red swollen into foot ilsa to walk: Has no feeling in foot due to disability HPI Madhuri Paulson is a 23 year old female who presents here today for Above Complaints. Madhuri is an established patient of Dr. Paco DO. Concerns today... Pt was seen in [facility] yesterday d/t L 4th toe red and swollen. No known injury. Hx of spina bifida so no feeling in feet at baseline. Dx with cellulitis and prescribed bactrim BID x 10 days. Pt following up today because symptoms have worsened. Toe is now more red and swollen despite starting antibiotic. Redness is spreading up into top of foot. Pt also reports significant chills last night -- unknown about fever because never took temperature. Past medical history, appointments, medications, allergies reviewed. Previous Medical History PAST MEDICAL HISTORY Diagnosis Date Acute pain of right shoulder 01/21/2019 Chiari malformation type I (HCC) Lymphedema Menarche 09/2011 PMH - PAST MEDICAL HISTORY OF spina bifida PMH - PAST MEDICAL HISTORY OF 01/07/2004 color vision-normal PMH - PAST MEDICAL HISTORY OF bilateral club feet PMH - PAST MEDICAL HISTORY OF broken leg in 10/09 Previous Surgical History PAST SURGICAL HISTORY Procedure Laterality Date AFP, OPEN SPINA BIFIDA ([facility]) Spina Bifida surgery during infancy APPENDICONEOVESICOSTOMY 06/20/2016 APPENDICONEOVESICOSTOMY 12/2016 COLONOSCOPY FLX DX W/COLLJ SPEC WHEN PFRMD 10/24/2017 Colonoscopy KNEE RIGHT OP SURGERY 10/2012 right knee PAST SURGICAL HISTORY OF Bilateral Foot reconstruction x 4-5 times PAST SURGICAL HISTORY OF laser surgery on birthmark PAST SURGICAL HISTORY OF 10/2010 right knee surgery TONSILLECTOMY & ADENOIDECTOMY <AGE 10 Family History FAMILY HISTORY Problem Relation Age of Onset Uterine Cancer Mother Ovarian cancer Mother Anesthesia Problems Maternal Uncle Patient's mother states her brother coded during a procedure as a baby. Not actually diagnosed withanything specific and did not undergo further anesthesia as an adult. Hypertension Maternal Grandmother Breast Cancer Maternal Grandmother Heart Maternal Grandfather Renal Cell Cancer Maternal Grandfather Thyroid Cancer Maternal Grandfather Hypertension Paternal Grandmother Hypertension Paternal Grandfather Heart Paternal Grandfather Patient Allergies ALLERGIES Allergen Reactions Banana Unknown Per diagnosis Latex Unknown Per diagnosis Current Medications Current Outpatient Medications on File Prior to Visit Medication Sig sulfamethoxazole-trimethoprim (BACTRIM DS) 800-160 mg per tablet Take 1 tablet by mouth two times aday for 10 days. Drospirenone-Ethinyl Estradiol (PHILIP, 28,) 3-0.02 mg per tablet Take 1 tablet by mouth once daily. Ok to skip placebo week and start on new pack of pills Phentermine HCl (ADIPEX-P) 37.5 mg tablet Take 1 tablet by mouth once daily for 30 days. BMI 33 metFORMIN (GLUCOPHAGE) 500 mg tablet Take 1 tablet by mouth daily with dinner. Ascorbic Acid 1,000 mg tablet Take 1 tablet by mouth once daily. acetaminophen (TYLENOL) 500 mg tablet 2 tablets by ORAL/FEEDING TUBE route every 8 hours as needed for pain. Catheter (FEMALE CATHETER) 14 Fr misc 14 [place]an, 16 inch female straight tip intermittent catheter,to use q6 hrs prn urinary retention B.animalis,bifid,infantis,long (PROBIOTIC 4X ORAL) Take 1 capsule by mouth once daily. polyethylene glycol 3350 (MIRALAX) 17 gram/dose powder One quarter capful added to 800 cc of water and then flushed through the Banda stoma albuterol HFA (PROVENTIL HFA, VENTOLIN HFA) 90 mcg/actuation inhaler Inhale 2 Puffs as instructed. (Patient not taking: Reported on 07/28/2024) No current facility-administered medications on file prior to visit. Social History Social History Tobacco Use Smoking status: Never Smokeless tobacco: Never Tobacco comments: no smokers in home Vaping Use Vaping status: Never Used Substance Use Topics Alcohol use: Yes Comment: Not weekly Drug use: No REVIEW OF SYSTEMS: as above Reviewed relevant PMHx, PSHx, Social Hx, current medications and allergies. Review of Symptoms REVIEW OF SYSTEMS See HPI. EXAM: BP 110/70 (BP Site: Left Arm, BP Position: Sitting, BP Cuff Size: Large Adult) Pulse 110 Temp 37.1 C (98.7 F) Resp 14 Wt 86.6 kg (191 lb) LMP 07/15/2024 (Exact Date) SpO2 99% BMI 32.79 kg/m General Appearance: Well appearing, alert, in no acute distress, well-hydrated, well nourished.. Skin: Positives: L 4th toe with redness, warmth, and swelling spreading into top of L foot. Head: Normocephalic, no masses, lesions, tenderness or abnormalities. Lungs: Lungs clear to auscultation. No wheezing, rhonchi, rales.. Heart: RRR without murmur, gallop, or rubs. No ectopy. Health Maintenance List Hepatitis C Screening Never done Cervical Cancer Screening due on 11/16/2024 Influenza Vaccine(1) due on 12/30/2024 Covid-19 Vaccine(3 - season) due on 05/31/2025 Depression Screening due on 12/26/2024 Anxiety Screening due on 12/26/2024 DTaP,Tdap,Td Vaccine(8 - Td or Tdap) due on 01/27/2031 Hepatitis B Vaccine Completed HPV Vaccine Completed HIV Screening Completed ASSESSMENT/PLAN: 1. Cellulitis of toe of left foot - ICD9: 681.10, ICD10: L03.032 Switch antibiotic regimen d/t worsening - Begin treatment with Cephalaxin (Keflex) - Check labs CBC with Diff and Blood Cultures - No lymphangetic streaking, this was defined for patient to watch for and to seek medical care immediately if appears - Area of cellulitis defined with pen, seek further attention if this area continues to enlarge - Follow up for recheck in 2/3 days Xray foot to rule out osteomyelitis and to make sure pt did not step on something d/t no feeling infeet at baseline. - COMPLETE BLOOD COUNT AND DIFFERENTIAL - XR FOOT GENERAL 3V AP/LAT/OBL LEFT - CEPHALEXIN 500 MG CAPSULE - BACTERIAL CULTURE, BLOOD - COMPREHENSIVE METABOLIC PANEL RTO in 2/3 days, sooner if needed. Medical Decision Making: Problems: Moderate: Acute illness with systemic symptoms Data: Unique test(s) ordered: 3+ Risk: Moderate: Drug management Medical Decision Making Level: 4 - Moderate Prescription instructions reviewed with patient as applicable. Potential red flag symptoms discussed with the patient. Reviewed appropriate action plan to take if red flag symptoms occur. Patient agreeable to treatment plan. Caitlin Andino APRN.SIGNAL INSPECTOR [id number] [place] [address] documented in this encounterBellevue Hospital01-26-2025 Instructions* Patient Instructions* Stalin Rodriguez APRN.CNP - 07/28/2024 10:42 AM EST CELLULITIS: Your exam shows you have an infection of the skin called cellulitis. This infection usually develops after an injury, cut, bite, or sting, but may occur without any known cause. Usually there is a localized area of redness, swelling, and pain which gets constantly bigger unless treatment is started. If cellulitis is severe or does not respond to initial treatment, hospital care with antibiotic injections may be needed. Treatment of cellulitis includes antibiotics along with resting and elevating the affected area until the infection improves. You should apply moist, warm compresses to the area for 30 minutes 4 times daily also. Please see your doctor if the pain and swelling from your infection are not better after two days of treatment. Call your doctor or go to the emergency department right away if you develop fever, chills, or other serious problems. You may require a tetanus booster if you are not current with your inmunizations. [facility]25 NoteHNO ID: [id number] Author: STALIN RODRIGUEZ APRN.FANNY Service: ? Author Type: Nurse Practitioner Type: Progress Notes Filed: 07/28/2024 10:43 Note Text: HPI: Madhuri Paulson is a 23 year old female who presents with Toe Pain (Toe) (Left 4th toe red this am no known injury). Patient reports she does have spina bifida and does not have feeling in her feet. Patient reports she is not had this happen before. Patient denies fever, nausea, vomiting, chills. PAST MEDICAL HISTORY Diagnosis Date Acute pain of right shoulder 01/21/2019 Chiari malformation type I (HCC) Lymphedema Menarche 09/2011 PMH - PAST MEDICAL HISTORY OF spina bifida PMH - PAST MEDICAL HISTORY OF 01/07/2004 color vision-normal PMH - PAST MEDICAL HISTORY OF bilateral club feet PMH - PAST MEDICAL HISTORY OF broken leg in 10/09 ACTIVE PROBLEM LIST Spina Bifida of Lumbar Region (Hcc) Cauda Equina Syndrome With Neurogenic Bladder (Hcc) Muscle Weakness (Generalized) Patellar Malalignment Syndrome Constipation Abnormality of Gait Thoracic Outlet Syndrome Scapulothoracic Bursitis of Right Shoulder Chiari Malformation Type I (Hcc) Lymphedema Neurogenic Bowel Obese Obesity, Class I, Bmi 30-34.9 S/P Brain Surgery Postoperative Pain Routine Physical Examination Recurrent Uti (Urinary Tract Infection) Dysmenorrhea Neurogenic Bladder Current Outpatient Medications Medication Sig Dispense Refill Drospirenone-Ethinyl Estradiol (PHILIP, 28,) 3-0.02 mg per tablet Take 1 tablet by mouth once daily. Ok to skip placebo week and start on new pack of pills 112 tablet 3 Phentermine HCl (ADIPEX-P) 37.5 mg tablet Take 1 tablet by mouth once daily for 30 days. BMI 33 30 tablet 2 metFORMIN (GLUCOPHAGE) 500 mg tablet Take 1 tablet by mouth daily with dinner. 90 tablet 1 Ascorbic Acid 1,000 mg tablet Take 1 tablet by mouth once daily. acetaminophen (TYLENOL) 500 mg tablet 2 tablets by ORAL/FEEDING TUBE route every 8 hours as needed for pain. Catheter (FEMALE CATHETER) 14 Fr misc 14 Chilean, 16 inch female straight tip intermittent catheter, to use q6 hrs prn urinary retention 100 Each 1 B.animalis,bifid,infantis,long (PROBIOTIC 4X ORAL) Take 1 capsule by mouth once daily. polyethylene glycol 3350 (MIRALAX) 17 gram/dose powder One quarter capful added to 800 cc of water and then flushed through the Banda stoma sulfamethoxazole-trimethoprim (BACTRIM DS) 800-160 mg per tablet Take 1 tablet by mouth two times a day for 10 days. 20 tablet 0 albuterol HFA (PROVENTIL HFA, VENTOLIN HFA) 90 mcg/actuation inhaler Inhale 2 Puffs as instructed. (Patient not taking: Reported on 07/28/2024) albuterol HFA (PROVENTIL HFA, VENTOLIN HFA) 90 mcg/actuation inhaler Inhale 2 Puffs as instructed every 6 hours as needed for wheezing/shortness of breath. 8 g 0 No current facility-administered medications for this visit. Social History Tobacco Use Smoking status: Never Smokeless tobacco: Never Tobacco comments: no smokers in home Vaping Use Vaping status: Never Used Substance Use Topics Alcohol use: Yes Comment: Not weekly Drug use: No Alcohol Use: Yes (Not weekly) Tobacco Use: Never FAMILY HISTORY Problem Relation Age of Onset Uterine Cancer Mother Ovarian cancer Mother Anesthesia Problems Maternal Uncle Patient's mother states her brother coded during a procedure as a baby. Not actually diagnosed with anything specific and did not undergo further anesthesia as an adult. Hypertension Maternal Grandmother Breast Cancer Maternal Grandmother Heart Maternal Grandfather Renal Cell Cancer Maternal Grandfather Thyroid Cancer Maternal Grandfather Hypertension Paternal Grandmother Hypertension Paternal Grandfather Heart Paternal Grandfather Review of Systems Constitutional: Negative for chills and fever. HENT: Negative for congestion, ear pain and sinus pain. Respiratory: Negative for cough, shortness of breath and wheezing. Cardiovascular: Negative for chest pain. Skin: Red, warm to touch toe BP 125/75 Pulse 104 Temp 97.6 Resp 18 SpO2 97% LMP 07/15/2024 Physical Exam Constitutional: General: She is not in acute distress. Appearance: Normal appearance. She is normal weight. She is not ill-appearing. HENT: Head: Normocephalic. Mouth/Throat: Mouth: Mucous membranes are moist. Eyes: Extraocular Movements: Extraocular movements intact. Conjunctiva/sclera: Conjunctivae normal. Cardiovascular: Rate and Rhythm: Tachycardia present. Pulmonary: Effort: Pulmonary effort is normal. Musculoskeletal: General: Swelling present. Feet: Feet: Comments: Red, swollen, warm to touch Skin: General: Skin is warm and dry. Findings: Erythema present. Neurological: General: No focal deficit present. Mental Status: She is alert and oriented to person, place, and time. Psychiatric: Mood and Affect: Mood normal. Behavior: Behavior normal. Thought Sandra (more content not included)...[facility]01-26-2025 History of Present illness Narrative* Stalin Rodriguez APRN.SIGNAL INSPECTOR - 07/28/2024 10:35 AM EST Images from the original note were not included. HPI: Madhuri Paulson is a 23 year old female who presents with Toe Pain (Toe) (Left 4th toe red this am no known injury). Patient reports she does have spina bifida and does not have feeling in herfeet. Patient reports she is not had this happen before. Patient denies fever, nausea, vomiting, chills. PAST MEDICAL HISTORY Diagnosis Date Acute pain of right shoulder 01/21/2019 Chiari malformation type I (HCC) Lymphedema Menarche 09/2011 PMH - PAST MEDICAL HISTORY OF spina bifida PMH - PAST MEDICAL HISTORY OF 01/07/2004 color vision-normal PMH - PAST MEDICAL HISTORY OF bilateral club feet PMH - PAST MEDICAL HISTORY OF broken leg in 10/09 ACTIVE PROBLEM LIST Spina Bifida of Lumbar Region (Hcc) Cauda Equina Syndrome With Neurogenic Bladder ([facility]) Muscle Weakness (Generalized) Patellar Malalignment Syndrome Constipation Abnormality of Gait Thoracic Outlet Syndrome Scapulothoracic Bursitis of Right Shoulder Chiari Malformation Type I ([facility]) Lymphedema Neurogenic Bowel Obese Obesity, Class I, Bmi 30-34.9 S/P Brain Surgery Postoperative Pain Routine Physical Examination Recurrent Uti (Urinary Tract Infection) Dysmenorrhea Neurogenic Bladder Current Outpatient Medications Medication Sig Dispense Refill Drospirenone-Ethinyl Estradiol (PHILIP, 28,) 3-0.02 mg per tablet Take 1 tablet by mouth once daily. Ok to skip placebo week and start on new pack of pills 112 tablet 3 Phentermine HCl (ADIPEX-P) 37.5 mg tablet Take 1 tablet by mouth once daily for 30 days. BMI 33 30 tablet 2 metFORMIN (GLUCOPHAGE) 500 mg tablet Take 1 tablet by mouth daily with dinner. 90 tablet 1 Ascorbic Acid 1,000 mg tablet Take 1 tablet by mouth once daily. acetaminophen (TYLENOL) 500 mg tablet 2 tablets by ORAL/FEEDING TUBE route every 8 hours as needed for pain. Catheter (FEMALE CATHETER) 14 Fr misc 14 Chilean, 16 inch female straight tip intermittent catheter,to use q6 hrs prn urinary retention 100 Each 1 B.animalis,bifid,infantis,long (PROBIOTIC 4X ORAL) Take 1 capsule by mouth once daily. polyethylene glycol 3350 (MIRALAX) 17 gram/dose powder One quarter capful added to 800 cc of water and then flushed through the Banda stoma sulfamethoxazole-trimethoprim (BACTRIM DS) 800-160 mg per tablet Take 1 tablet by mouth two times aday for 10 days. 20 tablet 0 albuterol HFA (PROVENTIL HFA, VENTOLIN HFA) 90 mcg/actuation inhaler Inhale 2 Puffs as instructed. (Patient not taking: Reported on 07/28/2024) albuterol HFA (PROVENTIL HFA, VENTOLIN HFA) 90 mcg/actuation inhaler Inhale 2 Puffs as instructed every 6 hours as needed for wheezing/shortness of breath. 8 g 0 No current facility-administered medications for this visit. Social History Tobacco Use Smoking status: Never Smokeless tobacco: Never Tobacco comments: no smokers in home Vaping Use Vaping status: Never Used Substance Use Topics Alcohol use: Yes Comment: Not weekly Drug use: No Alcohol Use: Yes (Not weekly) Tobacco Use: Never FAMILY HISTORY Problem Relation Age of Onset Uterine Cancer Mother Ovarian cancer Mother Anesthesia Problems Maternal Uncle Patient's mother states her brother coded during a procedure as a baby. Not actually diagnosed withanything specific and did not undergo further anesthesia as an adult. Hypertension Maternal Grandmother Breast Cancer Maternal Grandmother Heart Maternal Grandfather Renal Cell Cancer Maternal Grandfather Thyroid Cancer Maternal Grandfather Hypertension Paternal Grandmother Hypertension Paternal Grandfather Heart Paternal Grandfather Review of Systems Constitutional: Negative for chills and fever. HENT: Negative for congestion, ear pain and sinus pain. Respiratory: Negative for cough, shortness of breath and wheezing. Cardiovascular: Negative for chest pain. Skin: Red, warm to touch toe BP 125/75 Pulse 104 Temp 97.6 Resp 18 SpO2 97% LMP 07/15/2024 Physical Exam Constitutional: General: She is not in acute distress. Appearance: Normal appearance. She is normal weight. She is not ill-appearing. HENT: Head: Normocephalic. Mouth/Throat: Mouth: Mucous membranes are moist. Eyes: Extraocular Movements: Extraocular movements intact. Conjunctiva/sclera: Conjunctivae normal. Cardiovascular: Rate and Rhythm: Tachycardia present. Pulmonary: Effort: Pulmonary effort is normal. Musculoskeletal: General: Swelling present. Feet: Feet: Comments: Red, swollen, warm to touch Skin: General: Skin is warm and dry. Findings: Erythema present. Neurological: General: No focal deficit present. Mental Status: She is alert and oriented to person, place, and time. Psychiatric: Mood and Affect: Mood normal. Behavior: Behavior normal. Thought Content: Thought content normal. Clinical Impression ICD-10-CM 1. Cellulitis of skin L03.90 sulfamethoxazole-trimethoprim (BACTRIM DS) 800-160 mg per tablet Cellulitis of skin (primary encounter diagnosis) PLAN: Advised patient to wash area twice daily with antibacterial soap and water. Please allow some time during the day or night to keep area open to air in order for the area to be able to dry up. Keep a look out for infection, which was explained during visit, which if it occurs please follow-up with family doctor or go to the ER. Bactrim was prescribed, make sure to take full course even if you feelthat your symptoms are improving or resolved. Stalin Rodriguez APRN.SIGNAL INSPECTOR This note was generated with voice recognition software and may contain errors, including spelling,grammar, syntax and misrecognition of what was dictated, that are not fully corrected. documented in this [facility] Telephone encounter Note * Telephone Encounter - Alecia Guardado LPN - 07/22/2024 2:13 PM EST Pt. informed via My Chart. [facility]01-[facility] Miscellaneous Notes* Telephone Encounter - Alecia Castillo LPN - 07/22/2024 2:13 PM EST Pt. informed via My Chart. * Telephone Encounter - Juan Manuel Antonio DO - 07/22/2024 2:02 PM EST Please inform patient that her pelvic US shows a small ovarian cyst which should resolve on its own. No other concerns IMPRESSION: 1.8 cm septated cyst in the left ovary. documented in this encounterBelle[facility]01-20-2025 Telephone encounter Note * Telephone Encounter - Juan Manuel Antonio DO - 07/22/2024 2:02 PM EST Please inform patient that her pelvic US shows a small ovarian cyst which should resolve on its own. No other concerns IMPRESSION: 1.8 cm septated cyst in the left ovary. [facility]01[facility] History of Present illness Narrative* Viviana Correia RDMS - 07/22/2024 8:30 AM EST Radiology Service Progress Note PATIENT NAME: Madhuri Paulson DATE OF SERVICE: July 22, 2024 TIME: 9:44 AM PATIENT IDENTITY VERIFICATION COMPLETED USING TWO (2) IDENTIFIERS: Name and Date of confirmedby patient verbally. FALL SCREENING: Has the patient had 2 falls in the last year or 1 fall with injury or currently using an Ambulatory Assistive Device (Walker, Cane, Wheelchair, Crutches, etc.)? yes PATIENT GENDER DATA: Assigned female at . status: : No status:NO. PATIENT RELEVANT IMPLANT DATA REVIEWED: Not Applicable PATIENT PRESENTS WITH AN IMPLANTABLE OR ATTACHED ARCHITECTURAL ASSOCIATE: No RADIOLOGY DEPARTMENT: Ultrasound PERIPHERAL IV DATA: Not applicable SIGNED BY: Viviana Correia RDMS July 22, 2024 9:44 AM documented in this encounterBellevue Hospital01-20-2025 NoteHNO ID: [id number] Author: VIVIANA CORREIA RDMS Service: ? Author Type: Tool Grinding Technician Type: Progress Notes Filed: 07/22/2024 09:45 Note Text: Radiology Service Progress Note PATIENT NAME: Madhuri Paulson DATE OF SERVICE: July 22, 2024 TIME: 9:44 AM PATIENT IDENTITY VERIFICATION COMPLETED USING TWO (2) IDENTIFIERS: Name and Date of confirmed by patient verbally. FALL SCREENING: Has the patient had 2 falls in the last year or 1 fall with injury or currently using an Ambulatory Assistive Device (Walker, Cane, Wheelchair, Crutches, etc.)? yes PATIENT GENDER DATA: Assigned female at . status: : No status: NO. PATIENT RELEVANT IMPLANT DATA REVIEWED: Not Applicable PATIENT PRESENTS WITH AN IMPLANTABLE OR ATTACHED ARCHITECTURAL ASSOCIATE: No RADIOLOGY DEPARTMENT: Ultrasound PERIPHERAL IV DATA: Not applicable SIGNED BY: Viviana Correia RDMS July 22, 2024 9:44 [facility]01-15-2025 Telephone encounter Note* Telephone Encounter - Alecia Guardado LPN - 07/17/2024 5:01 PM EST Pt. informed Message left on VM. [facility]01-[facility] Miscellaneous Notes* Telephone Encounter - Alecia Castillo LPN - 07/17/2024 5:01 PM EST Pt. informed Message left on VM. * Telephone Encounter - Juan Manuel Antonio DO - 07/17/2024 4:26 PM EST Noted, okay to HOLD on taking an antibiotic then Please let her know Juan Manuel Antonio DO * Telephone Encounter - Shannon Acharya MA - 07/17/2024 1:26 PM EST Pt informed, verbalized understanding. Pt reports no urinary sx at this time. Not currently taking an antibiotic. Shannon Acharya MA * Telephone Encounter - Juan Manuel Antonio DO - 07/17/2024 1:01 PM EST Please let her know that her UA looks like she still has a UTI but her urine culture is negative Any symptoms? On antibiotic at this time? Juan Manuel Antonio DO documented in this encounterBelle[facility]01-15-2025 Telephone encounter Note * Telephone Encounter - Juan Manuel Antonio DO - 07/17/2024 4:26 PM EST Noted, okay to HOLD on taking an antibiotic then Please let her know Juan Manuel Antonio DO [facility]01-[facility] Telephone encounter Note* Telephone Encounter - Shannon Acharya MA - 07/17/2024 1:26 PM EST Pt informed, verbalized understanding. Pt reports no urinary sx at this time. Not currently taking an antibiotic. Shannon Acharya MA [facility]01-[facility] Telephone encounter Note* Telephone Encounter - Juan Manuel Antonio DO - 07/17/2024 1:01 PM EST Please let her know that her UA looks like she still has a UTI but her urine culture is negative Any symptoms? On antibiotic at this time? Juan Manuel Antonio DO [facility]01-13-[facility] Instructions* Patient Instructions* Juan Manuel Antonio DO - 07/15/2024 12:59 PM EST Supplement D- mannose for UTI prevention 500 mg a day or higher I ordered a standing urine culture and urinalysis that you can get done anytime you think you have a UTI Immune support supplements. Vitamin C at least 500-1000 mg a day Zinc at least 15 mg a day Vitamin D3 at least 2000 international unit(s) a day +/- elderberry documented in this encounterBellevue Hospital01-13-2025 NoteHNO ID: [id number] Author: JUAN MANUEL ANTONIO DO Service: ? Author Type: Physician Type: Progress Notes Filed: 07/16/2024 16:53 Note Text: CC: Madhuri Paulson is a 23 year old female who presents to the office to establish care. HPI: At last OFFICE VISIT December 2023 She recently underwent a craniectomy subocipital with cervical laminectomy for decompression and dural grafting for enlarging Chiari malformation and herniation present. She is not about day 12 post operative and she has done well. Her nausea and vomting and headaches have resolved. She is supposed to have her suture removed on Monday or Monday. She is asking to have this done locally. 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 Wondering what supplements she can take to help her symptoms. Obesity, weight at 194 lbs. She is at BMI 33.30. she is interested in weight loss options. She is not allowed to exercise due to her craniectomy and complications with headaches and extra intracranial fluid. Menses, painful and cramping, occurring regularly. Worse days 1-2 of her menses, has tried heating pad and NSAIDs. Has a fmhx of ovarian cysts and has a lot of clots she passes. She has had an IUD as a teenager but would like an oral pill option. She is engaged, not yet but does want to have children in the future Recurrent UTI, secondary to her spina bifida. Wondering if any options to help with prevention PAST MEDICAL HISTORY Diagnosis Date Acute pain of right shoulder 01/21/2019 Chiari malformation type I (HCC) Lymphedema Menarche 09/2011 PMH - PAST MEDICAL HISTORY OF spina bifida PMH - PAST MEDICAL HISTORY OF 01/07/2004 color vision-normal PMH - PAST MEDICAL HISTORY OF bilateral club feet PMH - PAST MEDICAL HISTORY OF broken leg in 10/09 PAST SURGICAL HISTORY Procedure Laterality Date AFP, OPEN SPINA BIFIDA ([facility]) Spina Bifida surgery during infancy APPENDICONEOVESICOSTOMY 06/20/2016 APPENDICONEOVESICOSTOMY 12/2016 COLONOSCOPY FLX DX W/COLLJ SPEC WHEN PFRMD 10/24/2017 Colonoscopy KNEE RIGHT OP SURGERY 10/2012 right knee PAST SURGICAL HISTORY OF Bilateral Foot reconstruction x 4-5 times PAST SURGICAL HISTORY OF laser surgery on birthmark PAST SURGICAL HISTORY OF 10/2010 right knee surgery TONSILLECTOMY AND ADENOIDECTOMY Social History: Social History Tobacco Use Smoking status: Never Smokeless tobacco: Never Tobacco comments: no smokers in home Vaping Use Vaping status: Never Used Substance Use Topics Alcohol use: Yes Comment: Not weekly Drug use: No FAMILY HISTORY Problem Relation Age of Onset Uterine Cancer Mother Ovarian cancer Mother Anesthesia Problems Maternal Uncle Patient's mother states her brother coded during a procedure as a baby. Not actually diagnosed with anything specific and did not undergo further anesthesia as an adult. Hypertension Maternal Grandmother Breast Cancer Maternal Grandmother Heart Maternal Grandfather Renal Cell Cancer Maternal Grandfather Thyroid Cancer Maternal Grandfather Hypertension Paternal Grandmother Hypertension Paternal Grandfather Heart Paternal Grandfather Current Outpatient prescriptions: Drospirenone-Ethinyl Estradiol (PHILIP, 28,) 3-0.02 mg per tablet Take 1 tablet by mouth once daily. Ok to skip placebo week and start on new pack of pills Phentermine HCl (ADIPEX-P) 37.5 mg tablet Take 1 tablet by mouth once daily for 30 days. BMI 33 metFORMIN (GLUCOPHAGE) 500 mg tablet Take 1 tablet by mouth daily with dinner. Ascorbic Acid 1,000 mg tablet Take 1 tablet by mouth once daily. albuterol HFA (PROVENTIL HFA, VENTOLIN HFA) 90 mcg/actuation inhaler Inhale 2 Puffs as instructed. albuterol HFA (PROVENTIL HFA, VENTOLIN HFA) 90 mcg/actuation inhaler Inhale 2 Puffs as instructed every 6 hours as needed for wheezing/shortness of breath. acetaminophen (TYLENOL) 500 mg tablet 2 tablets by ORAL/FEEDING TUBE route every 8 hours as needed for pain. Catheter (FEMALE CATHETER) 14 Fr misc 14 [place]an, 16 inch female straight tip intermittent catheter, to use q6 hrs prn urinary retention B.animalis,bifid,infantis,long (PROBIOTIC 4X ORAL) Take 1 capsule by mouth once daily. polyethylene glycol 3350 (MIRALAX) 17 gram/dose powder One quarter capful added to 800 cc of water and then flushed through the Banda stoma Allergies: ALLERGIES Allergen Reactions Banana Unknown Per diagnosis Latex Unknown Per diagnosis ROS: See HPI PE: 07/15/24 1240 BP: 120/60 Pulse: 80 Resp: 16 Temp: 36.7 ?C (98.1 ?F) TempSrc: Left Tym (more content not included)...[facility] 07-15-2024 History of Present illness Narrative* Juan Manuel Antonio Natalie, DO - 07/15/2024 12:55 PM EST CC: Madhuri Paulson is a 23 year old female who presents to the office to establish care. HPI: At last OFFICE VISIT December 2023 She recently underwent a craniectomy subocipital with cervical laminectomy for decompression and dural grafting for enlarging Chiari malformation and herniation present. She is not about day 12 post operative and she has done well. Her nausea and vomting and headaches have resolved. She is supposedto have her suture removed on Monday or Monday. She is asking to have this done locally. 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 Wondering what supplements she can take to help her symptoms. Obesity, weight at 194 lbs. She is at BMI 33.30. she is interested in weight loss options. She is not allowed to exercise due to her craniectomy and complications with headaches and extra intracranial fluid. Menses, painful and cramping, occurring regularly. Worse days 1-2 of her menses, has tried heating pad and NSAIDs. Has a fmhx of ovarian cysts and has a lot of clots she passes. She has had an IUD asa teenager but would like an oral pill option. She is engaged, not yet but does want to have children in the future Recurrent UTI, secondary to her spina bifida. Wondering if any options to help with prevention PAST MEDICAL HISTORY Diagnosis Date Acute pain of right shoulder 01/21/2019 Chiari malformation type I (HCC) Lymphedema Menarche 09/2011 PMH - PAST MEDICAL HISTORY OF spina bifida PMH - PAST MEDICAL HISTORY OF 01/07/2004 color vision-normal PMH - PAST MEDICAL HISTORY OF bilateral club feet PMH - PAST MEDICAL HISTORY OF broken leg in 10/09 PAST SURGICAL HISTORY Procedure Laterality Date AFP, OPEN SPINA BIFIDA ([facility]) Spina Bifida surgery during infancy APPENDICONEOVESICOSTOMY 06/20/2016 APPENDICONEOVESICOSTOMY 12/2016 COLONOSCOPY FLX DX W/COLLJ SPEC WHEN PFRMD 10/24/2017 Colonoscopy KNEE RIGHT OP SURGERY 10/2012 right knee PAST SURGICAL HISTORY OF Bilateral Foot reconstruction x 4-5 times PAST SURGICAL HISTORY OF laser surgery on birthmark PAST SURGICAL HISTORY OF 10/2010 right knee surgery TONSILLECTOMY & ADENOIDECTOMY <AGE 10 Social History: Social History Tobacco Use Smoking status: Never Smokeless tobacco: Never Tobacco comments: no smokers in home Vaping Use Vaping status: Never Used Substance Use Topics Alcohol use: Yes Comment: Not weekly Drug use: No FAMILY HISTORY Problem Relation Age of Onset Uterine Cancer Mother Ovarian cancer Mother Anesthesia Problems Maternal Uncle Patient's mother states her brother coded during a procedure as a baby. Not actually diagnosed withanything specific and did not undergo further anesthesia as an adult. Hypertension Maternal Grandmother Breast Cancer Maternal Grandmother Heart Maternal Grandfather Renal Cell Cancer Maternal Grandfather Thyroid Cancer Maternal Grandfather Hypertension Paternal Grandmother Hypertension Paternal Grandfather Heart Paternal Grandfather Current Outpatient prescriptions: Drospirenone-Ethinyl Estradiol (PHILIP, 28,) 3-0.02 mg per tablet Take 1 tablet by mouth once daily. Ok to skip placebo week and start on new pack of pills Phentermine HCl (ADIPEX-P) 37.5 mg tablet Take 1 tablet by mouth once daily for 30 days. BMI 33 metFORMIN (GLUCOPHAGE) 500 mg tablet Take 1 tablet by mouth daily with dinner. Ascorbic Acid 1,000 mg tablet Take 1 tablet by mouth once daily. albuterol HFA (PROVENTIL HFA, VENTOLIN HFA) 90 mcg/actuation inhaler Inhale 2 Puffs as instructed. albuterol HFA (PROVENTIL HFA, VENTOLIN HFA) 90 mcg/actuation inhaler Inhale 2 Puffs as instructed every 6 hours as needed for wheezing/shortness of breath. acetaminophen (TYLENOL) 500 mg tablet 2 tablets by ORAL/FEEDING TUBE route every 8 hours as needed for pain. Catheter (FEMALE CATHETER) 14 Fr misc 14 [place]an, 16 inch female straight tip intermittent catheter,to use q6 hrs prn urinary retention B.animalis,bifid,infantis,long (PROBIOTIC 4X ORAL) Take 1 capsule by mouth once daily. polyethylene glycol 3350 (MIRALAX) 17 gram/dose powder One quarter capful added to 800 cc of water and then flushed through the Banda stoma Allergies: ALLERGIES Allergen Reactions Banana Unknown Per diagnosis Latex Unknown Per diagnosis ROS: See HPI PE: 07/15/24 1240 BP: 120/60 Pulse: 80 Resp: 16 Temp: 36.7 C (98.1 F) TempSrc: Left Tympanic Weight: 88 kg (194 lb) Gen: A&O, NAD, non-toxic appearing, Pleasant, cooperative HEENT: NT/AC, PERRLA, EOMs intact b/l, nares clear and patent b/l, pharynx without erythema, exudate or lesions. Uvula midline.MMM Neck: supple, No cervical LAD, no thyromegaly, no carotid bruits CV: RRR, normal S1 and S2, no murmurs, no gallops, no rubs, Pulses 2+ and symmetric in UE and LE b/l Lungs: normal respiratory effort, CTA b/l, no wheezing or rhonchi or rales Abd: soft, NT, ND, +BS, no hepatosplenomegaly MS: gait impaired No edema, normal pulses Central obesity Neuro: CN II-XII intact b/l, strength 5/5 b/l UE and LE, DTRs 2/4 UE and LE, sensation intact. Skin: warm, dry, intact, No rashes or lesions on exposed skin. ASSESSMENT/PLAN: 1. Recurrent UTI (urinary tract infection) - ICD9: 599.0, ICD10: N39.0 (primary diagnosis) recurrent - Patient education for prevention given F/u with Urologist Add on D-mannose to see if this helps her too - BACTERIAL CULTURE, URINE - URINALYSIS, WITH MICROSCOPIC 2. Dysmenorrhea - ICD9: 625.3, ICD10: N94.6 US pelvis as ordered Start on OCPs and see if this helps her symptoms F/u with INTERNATIONAL MARKETING SPECIALIST in the future - US FEMALE PELVIS TRANSVAG - US FEMALE PELVIS TRANSABD LTD - DROSPIRENONE 3 MG-ETHINYL ESTRADIOL 0.02 MG TABLET 3. Class 1 obesity with body mass index (BMI) of 33.0 to 33.9 in adult, unspecified obesity type, unspecified whether serious comorbidity present - ICD9: 278.00, V85.33, ICD10: E66.811, Z68.33 - Lengthy discussion in office today regarding diet and exercise. Discussed use of small plate to eat meals from, drink 1 glass of water 10-15 minutes prior to eating meal, drink 8 glasses of water daily, eat fresh fruit and vegetable during meal first then lean protein such as grilled/baked chicken breast or fish, limit carbohydrate intake (less pasta, breads, rice and snack foods) as well as limiting sugars (desserts etc). Important to count / track your calories and exercise as well. Start on medications below at 1/2 tablet each as d/w her today and increase as able. She is not able to exercise - PHENTERMINE 37.5 MG TABLET - METFORMIN 500 MG TABLET 4. Spina bifida of lumbar region without hydrocephalus (HCC) - ICD9: 741.93, ICD10: Q05.7 - Lengthy discussion in office today regarding diet and exercise. Discussed use of small plate to eat meals from, drink 1 glass of water 10-15 minutes prior to eating meal, drink 8 glasses of water daily, eat fresh fruit and vegetable during meal first then lean protein such as grilled/baked chicken breast or fish, limit carbohydrate intake (less pasta, breads, rice and snack foods) as well as limiting sugars (desserts etc). Important to count / track your calories and exercise as well. Start on medications below at 1/2 tablet each as d/w her today and increase as able. She is not able to exercise - PHENTERMINE 37.5 MG TABLET - METFORMIN 500 MG TABLET 5. Chiari malformation type I (HCC) - ICD9: 348.4, ICD10: G93.5 - Lengthy discussion in office today regarding diet and exercise. Discussed use of small plate to eat meals from, drink 1 glass of water 10-15 minutes prior to eating meal, drink 8 glasses of water daily, eat fresh fruit and vegetable during meal first then lean protein such as grilled/baked chicken breast or fish, limit carbohydrate intake (less pasta, breads, rice and snack foods) as well as limiting sugars (desserts etc). Important to count / track your calories and exercise as well. Start on medications below at 1/2 tablet each as d/w her today and increase as able. She is not able to exercise - PHENTERMINE 37.5 MG TABLET - METFORMIN 500 MG TABLET 6. S/P brain surgery - ICD9: V45.89, ICD10: Z98.890 - Lengthy discussion in office today regarding diet and exercise. Discussed use of small plate to eat meals from, drink 1 glass of water 10-15 minutes prior to eating meal, drink 8 glasses of water daily, eat fresh fruit and vegetable during meal first then lean protein such as grilled/baked chicken breast or fish, limit carbohydrate intake (less pasta, breads, rice and snack foods) as well as limiting sugars (desserts etc). Important to count / track your calories and exercise as well. Start on medications below at 1/2 tablet each as d/w her today and increase as able. She is not able to exercise - PHENTERMINE 37.5 MG TABLET - METFORMIN 500 MG TABLET 7. Neurogenic bladder - ICD9: 596.54, ICD10: N31.9 See above Juan Manuel Antonio DO To ER if develops chest pain, shortness of breath, or severe worsening of symptoms. Discussed risks, benefits, alternatives, and potential side effects of medications. Patient expressed understanding and agreed with the plan. Juan Manuel Antonio DO [address] [place] [address] documented [facility]25 NoteHNO ID: [id number] Author: NORA FLOYD APRN.SIGNAL INSPECTOR Service: ? Author Type: Nurse Practitioner Type: Progress Notes Filed: 07/10/2024 19:18 Note Text: Madhuri Paulson is a 23 year old female who presents with UTI (Urgency, Frequency, Burning with urination. Patient does self cath she states. X 3 days/Patient did take OTC AZO last dose was lastnight) Patient is a 23-year-old female that presents in clinic with symptoms of urgency frequency and burning with urination for about 3 days. I agree with nursing intake above. Patient reports to me that she does have a history of recurrent UTIs, because she self-caths herself due to other chronic medical issues. Patient has been taking gwlb-ywj-clzwsvw Azo, last dose was last night. No fever chills or fatigue. No other complaints today. The history is provided by the patient. No project hire was used. PAST MEDICAL HISTORY Diagnosis Date Acute pain of right shoulder 01/21/2019 Chiari malformation type I (HCC) Lymphedema Menarche 09/2011 PMH - PAST MEDICAL HISTORY OF spina bifida PMH - PAST MEDICAL HISTORY OF 01/07/2004 color vision-normal PMH - PAST MEDICAL HISTORY OF bilateral club feet PMH - PAST MEDICAL HISTORY OF broken leg in 10/09 ACTIVE PROBLEM LIST Spina Bifida of Lumbar Region (Hcc) Cauda Equina Syndrome With Neurogenic Bladder (Hcc) Muscle Weakness (Generalized) Patellar Malalignment Syndrome Constipation Abnormality of Gait Thoracic Outlet Syndrome Scapulothoracic Bursitis of Right Shoulder Chiari Malformation Type I (Hcc) Lymphedema Neurogenic Bowel Obese Obesity, Class I, Bmi 30-34.9 S/P Brain Surgery Postoperative Pain Routine Physical Examination Current Outpatient Medications Medication Sig Dispense Refill Ascorbic Acid 1,000 mg tablet Take 1 tablet by mouth once daily. albuterol HFA (PROVENTIL HFA, VENTOLIN HFA) 90 mcg/actuation inhaler Inhale 2 Puffs as instructed. albuterol HFA (PROVENTIL HFA, VENTOLIN HFA) 90 mcg/actuation inhaler Inhale 2 Puffs as instructed every 6 hours as needed for wheezing/shortness of breath. 8 g 0 acetaminophen (TYLENOL) 500 mg tablet 2 tablets by ORAL/FEEDING TUBE route every 8 hours as needed for pain. Catheter (FEMALE CATHETER) 14 Fr misc 14 [place]an, 16 inch female straight tip intermittent catheter, to use q6 hrs prn urinary retention 100 Each 1 B.animalis,bifid,infantis,long (PROBIOTIC 4X ORAL) Take 1 capsule by mouth once daily. polyethylene glycol 3350 (MIRALAX) 17 gram/dose powder One quarter capful added to 800 cc of water and then flushed through the Banda stoma nitrofurantoin monohydrate and macrocrystal (MACROBID) 100 mg capsule Take 1 capsule by mouth two times a day for 5 days. 10 capsule 0 phenazopyridine (PYRIDIUM) 200 mg tablet Take 1 tablet by mouth three times a day as needed for pain for up to 3 days. 9 tablet 0 No current facility-administered medications for this visit. Social History Tobacco Use Smoking status: Never Smokeless tobacco: Never Tobacco comments: no smokers in home Vaping Use Vaping status: Never Used Substance Use Topics Alcohol use: Yes Comment: Not weekly Drug use: No Alcohol Use: Yes (Not weekly) Tobacco Use: Never FAMILY HISTORY Problem Relation Age of Onset Uterine Cancer Mother Ovarian cancer Mother Anesthesia Problems Maternal Uncle Patient's mother states her brother coded during a procedure as a baby. Not actually diagnosed with anything specific and did not undergo further anesthesia as an adult. Hypertension Maternal Grandmother Breast Cancer Maternal Grandmother Heart Maternal Grandfather Renal Cell Cancer Maternal Grandfather Thyroid Cancer Maternal Grandfather Hypertension Paternal Grandmother Hypertension Paternal Grandfather Heart Paternal Grandfather Review of Systems Constitutional: Negative for chills, fever and malaise/fatigue. Genitourinary: Positive for dysuria, frequency and urgency. Negative for flank pain and hematuria. All other systems reviewed and are negative. BP 136/87 Pulse 86 Temp (Src) 98 (Temporal) Resp 16 Wt 190 lb (86.2kg) SpO2 97% LMP 06/13/2024 Physical Exam Vitals and nursing note reviewed. Constitutional: General: She is not in acute distress. Appearance: Normal appearance. She is not ill-appearing, toxic-appearing or diaphoretic. Cardiovascular: Rate and Rhythm: Normal rate and regular rhythm. Pulses: Normal pulses. Heart sounds: Normal heart sounds. Pulmonary: Effort: Pulmonary effort is normal. No accessory muscle usage, prolonged expiration, respiratory distress or retractions. Breath sounds: Normal breath sounds and air entry. No stridor or decreased air movement. Abdominal: General: There is no distension. Tenderness: There is abdominal tenderness in the suprapubic area. Comments: No abdominal symptoms reported. Neurological: General: No focal deficit present. Mental Sta (more content not included)...[facility]01-08-[facility]25 History of Present illness Narrative* Nora Floyd APRN.SIGNAL INSPECTOR - 07/10/2024 6:24 PM EST Madhuri Paulson is a 23 year old female who presents with UTI (Urgency, Frequency, Burning with urination. Patient does self cath she states. X 3 days/Patient did take OTC AZO last dose was lastnight) Patient is a 23-year-old female that presents in clinic with symptoms of urgency frequency and burning with urination for about 3 days. I agree with nursing intake above. Patient reports to me that she does have a history of recurrent UTIs, because she self-caths herself due to other chronic medical issues. Patient has been taking paea-rdw-hznnywe Azo, last dose was last night. No fever chills orfatigue. No other complaints today. The history is provided by the patient. No project hire was used. PAST MEDICAL HISTORY Diagnosis Date Acute pain of right shoulder 01/21/2019 Chiari malformation type I (HCC) Lymphedema Menarche 09/2011 PMH - PAST MEDICAL HISTORY OF spina bifida PMH - PAST MEDICAL HISTORY OF 01/07/2004 color vision-normal PMH - PAST MEDICAL HISTORY OF bilateral club feet PMH - PAST MEDICAL HISTORY OF broken leg in 10/09 ACTIVE PROBLEM LIST Spina Bifida of Lumbar Region (Hcc) Cauda Equina Syndrome With Neurogenic Bladder (Hcc) Muscle Weakness (Generalized) Patellar Malalignment Syndrome Constipation Abnormality of Gait Thoracic Outlet Syndrome Scapulothoracic Bursitis of Right Shoulder Chiari Malformation Type I (Hcc) Lymphedema Neurogenic Bowel Obese Obesity, Class I, Bmi 30-34.9 S/P Brain Surgery Postoperative Pain Routine Physical Examination Current Outpatient Medications Medication Sig Dispense Refill Ascorbic Acid 1,000 mg tablet Take 1 tablet by mouth once daily. albuterol HFA (PROVENTIL HFA, VENTOLIN HFA) 90 mcg/actuation inhaler Inhale 2 Puffs as instructed. albuterol HFA (PROVENTIL HFA, VENTOLIN HFA) 90 mcg/actuation inhaler Inhale 2 Puffs as instructed every 6 hours as needed for wheezing/shortness of breath. 8 g 0 acetaminophen (TYLENOL) 500 mg tablet 2 tablets by ORAL/FEEDING TUBE route every 8 hours as needed for pain. Catheter (FEMALE CATHETER) 14 Fr misc 14 [place]an, 16 inch female straight tip intermittent catheter,to use q6 hrs prn urinary retention 100 Each 1 B.animalis,bifid,infantis,long (PROBIOTIC 4X ORAL) Take 1 capsule by mouth once daily. polyethylene glycol 3350 (MIRALAX) 17 gram/dose powder One quarter capful added to 800 cc of water and then flushed through the Banda stoma nitrofurantoin monohydrate and macrocrystal (MACROBID) 100 mg capsule Take 1 capsule by mouth two times a day for 5 days. 10 capsule 0 phenazopyridine (PYRIDIUM) 200 mg tablet Take 1 tablet by mouth three times a day as needed for pain for up to 3 days. 9 tablet 0 No current facility-administered medications for this visit. Social History Tobacco Use Smoking status: Never Smokeless tobacco: Never Tobacco comments: no smokers in home Vaping Use Vaping status: Never Used Substance Use Topics Alcohol use: Yes Comment: Not weekly Drug use: No Alcohol Use: Yes (Not weekly) Tobacco Use: Never FAMILY HISTORY Problem Relation Age of Onset Uterine Cancer Mother Ovarian cancer Mother Anesthesia Problems Maternal Uncle Patient's mother states her brother coded during a procedure as a baby. Not actually diagnosed withanything specific and did not undergo further anesthesia as an adult. Hypertension Maternal Grandmother Breast Cancer Maternal Grandmother Heart Maternal Grandfather Renal Cell Cancer Maternal Grandfather Thyroid Cancer Maternal Grandfather Hypertension Paternal Grandmother Hypertension Paternal Grandfather Heart Paternal Grandfather Review of Systems Constitutional: Negative for chills, fever and malaise/fatigue. Genitourinary: Positive for dysuria, frequency and urgency. Negative for flank pain and hematuria. All other systems reviewed and are negative. BP 136/87 Pulse 86 Temp (Src) 98 (Temporal) Resp 16 Wt 190 lb (86.2kg) SpO2 97% LMP 06/13/2024 Physical Exam Vitals and nursing note reviewed. Constitutional: General: She is not in acute distress. Appearance: Normal appearance. She is not ill-appearing, toxic-appearing or diaphoretic. Cardiovascular: Rate and Rhythm: Normal rate and regular rhythm. Pulses: Normal pulses. Heart sounds: Normal heart sounds. Pulmonary: Effort: Pulmonary effort is normal. No accessory muscle usage, prolonged expiration, respiratory distress or retractions. Breath sounds: Normal breath sounds and air entry. No stridor or decreased air movement. Abdominal: General: There is no distension. Tenderness: There is abdominal tenderness in the suprapubic area. Comments: No abdominal symptoms reported. Neurological: General: No focal deficit present. Mental Status: She is alert and oriented to person, place, and time. Psychiatric: Attention and Perception: Attention normal. Mood and Affect: Mood normal. Speech: Speech normal. Behavior: Behavior normal. Behavior is cooperative. Thought Content: Thought content normal. Cognition and Memory: Cognition normal. ASSESSMENT/PLAN: 1. Dysuria - ICD9: 788.1, ICD10: R30.0 (primary diagnosis) - URINALYSIS, DIPSTICK ONLY -results consistent with a UTI, will send urine culture also due to patient's history of recurrent UTIs to identify bacteria/organism. - BACTERIAL CULTURE, URINE 2. Acute cystitis without hematuria - ICD9: 595.0, ICD10: N30.00 - History, examination, and urine dipstick result are consistent with UTI without evidence of pyelonephritis or sepsis. Patient will be given antibiotic therapy and cultures pending. - NITROFURANTOIN MONOHYDRATE & MACROCRYSTAL 100 MG ORAL CAP - PHENAZOPYRIDINE 200 MG TABLET - BACTERIAL CULTURE, URINE - Educated and discussed etiology, and answered questions about prescribed medications and discussed supportive measures at home. - educational material provided with AVS. - Discussed to follow up with PCP and/or specialist in 2-3 days if symptoms persist or get worse, go directly to Emergency Department with new symptoms, increased and unmanageable pain, high fevers, chest pain, difficulty breathing or not being able to tolerate fluids. - patient is agreeable with plan and discharged in stable condition. Nora Floyd APRN.CNP This document has been created with the use of voice recognition technology. Every effort was takento correct for errors however it may contain inaccuracies, misspellings, syntax errors, or word sense that escaped review. Please inquire further with the author for clarification if needed. documented in this encounter[facility]01-08-2025 Instructions* Patient Instructions* Nora Floyd APRN.CNP - 07/10/2024 6:20 PM EST - Follow-up with your primary care doctor if this treatment does not work for you and symptoms do not resolve. - Go directly to Emergency Department with high fevers, chest pain, difficulty breathing or not able to tolerate fluids. URINARY TRACT INFECTION GENERAL INFORMATION: A urinary tract infection (UTI) is an infection of the bladder or kidneys. A bladder infection, called cystitis, is the more common type. If the infection travels up to the kidneys, it is called pyelonephritis. This can be more serious. UTIs are a common problem in women. Having sexual relations can leave a woman more susceptible to developing a UTI, but it is not sexually transmitted like gonorrhea. Some women have a problem with recurrent UTIs. INSTRUCTIONS: 1. Your doctor prescribed an antibiotic to treat the UTI. Take exactly as directed. Be sure to takeall the medication prescribed, even if your symptoms disappear. If you stop treatment early, the infection may not be fully treated and the symptoms could come back again. 2. Get plenty of rest. You may take acetaminophen for fever and aches. 3. Drink 6 to 8 glasses of fluids, especially water, every day. This helps wash out germs from yoururinary tract. Cranberry juice or other sources of vitamin C are also good for you. 4. Urinate often, as soon as you feel the urge. Empty your bladder completely. Urinate before and after you have sex. 5. Always wipe from front to back after going to the bathroom. This pushes germs away from your bladder, rather than towards it. 6. Showers are better than baths, and you should wash the genital area daily. Avoid bubble bath or bath oils if you do take a bath. 7. Wear underwear and pantyhose with a cotton crotch. CONTACT YOUR DOCTOR: 1. You have a temperature over 102F (38.8C) after 48 hours on medication. 2. You notice blood in your urine. 3. Your symptoms don't improve in 2 days. 4. You develop nausea, vomiting, diarrhea, or a rash. 5. You develop new or unexplained symptoms. These may be related to the medication you are taking. 6. Your symptoms return after you finish treatment. RETURN TO THE EMERGENCY DEPARTMENT IF: You develop vomiting and can't keep your medication or fluids down. documented in this encounter[facility]12-29-[facility]24 NoteHNO ID: [id number] Author: ILIANA SIMMS APRN.CNP Service: ? Author Type: Nurse Practitioner Type: Progress Notes Filed: 06/30/2024 10:09 Note Text: CC: Patient presents with: Ear Pain: R ear pain, pain down into neck x5 days HPI: Madhuri Paulson is a 23 year old female who presents to the office with complaint of ear symptoms for 5 days. Symptoms are worsening Associated symptoms includes ear pain. Denies nausea, vomiting , and diarrhea. Treatments tried include nothing so far. with no relief of symptoms. Sick contacts: unknown. History of asthma, frequent episodes of bronchitis, chronic bronchitis, bronchiectasis or COPD: No Smoker: No Seasonal/environmental allergies: No The ROS is otherwise negative. The patient's pmh, medications, allergies, and past visits are reviewed. PHYSICAL EXAM: BP 102/72 Pulse 91 Temp 36.3 ?C (97.3 ?F) Resp 18 Wt 89 kg (196 lb 3.4 oz) LMP 06/13/2024 (Exact Date) SpO2 97% BMI 33.68 kg/m? General appearance: alert, cooperative, pleasant, in no acute distress Head: Normocephalic Eyes: EOM's intact, conjunctiva pink and moist, no icterus, sclera white, non-injected Ears: Right ear: External ear/canal- Normal, TM - erythematous. Left ear: External ear/canal- Normal, TM - clear with good landmarks Oropharynx:moist without lesions, No erythema, exudates or tonsillar hypertrophy. Heart: Negative. RRR without obvious murmur, gallop, or rubs. No ectopy. Lungs: clear to auscultation, without rales or wheeze, good air exchange PAST MEDICAL HISTORY Diagnosis Date Acute pain of right shoulder 01/21/2019 Chiari malformation type I (HCC) Lymphedema Menarche 09/2011 PMH - PAST MEDICAL HISTORY OF spina bifida PMH - PAST MEDICAL HISTORY OF 01/07/2004 color vision-normal PMH - PAST MEDICAL HISTORY OF bilateral club feet PMH - PAST MEDICAL HISTORY OF broken leg in 10/09 PAST SURGICAL HISTORY Procedure Laterality Date AFP, OPEN SPINA BIFIDA ([facility]) Spina Bifida surgery during infancy APPENDICONEOVESICOSTOMY 06/20/2016 APPENDICONEOVESICOSTOMY 12/2016 COLONOSCOPY FLX DX W/COLLJ SPEC WHEN PFRMD 10/24/2017 Colonoscopy KNEE RIGHT OP SURGERY 10/2012 right knee PAST SURGICAL HISTORY OF Bilateral Foot reconstruction x 4-5 times PAST SURGICAL HISTORY OF laser surgery on birthmark PAST SURGICAL HISTORY OF 10/2010 right knee surgery TONSILLECTOMY AND ADENOIDECTOMY ALLERGIES Banana and Latex MEDICATIONS albuterol HFA (PROVENTIL HFA, VENTOLIN HFA) 90 mcg/actuation inhaler Inhale 2 Puffs as instructed every 6 hours as needed for wheezing/shortness of breath. acetaminophen (TYLENOL) 500 mg tablet 2 tablets by ORAL/FEEDING TUBE route every 8 hours as needed for pain. Catheter (FEMALE CATHETER) 14 Fr misc 14 [place]an, 16 inch female straight tip intermittent catheter, to use q6 hrs prn urinary retention B.animalis,bifid,infantis,long (PROBIOTIC 4X ORAL) Take 1 capsule by mouth once daily. polyethylene glycol 3350 (MIRALAX) 17 gram/dose powder One quarter capful added to 800 cc of water and then flushed through the Banda stoma FAMILY HISTORY Problem Relation Age of Onset Uterine Cancer Mother Ovarian cancer Mother Anesthesia Problems Maternal Uncle Patient's mother states her brother coded during a procedure as a baby. Not actually diagnosed with anything specific and did not undergo further anesthesia as an adult. Hypertension Maternal Grandmother Breast Cancer Maternal Grandmother Heart Maternal Grandfather Renal Cell Cancer Maternal Grandfather Thyroid Cancer Maternal Grandfather Hypertension Paternal Grandmother Hypertension Paternal Grandfather Heart Paternal Grandfather Social History Tobacco Use Smoking status: Never Smokeless tobacco: Never Tobacco comments: no smokers in home Vaping Use Vaping status: Never Used Substance Use Topics Alcohol use: Yes Comment: Not weekly Drug use: No ASSESSMENT/PLAN: 1. Acute otitis media, right - ICD9: 382.9, ICD10: H66.91 - CEFDINIR 300 MG CAPSULE Will add flonase and claritin Prescription instructions reviewed with patient as applicable. Potential red flag symptoms discussed with the patient. Reviewed appropriate action plan to take if red flag symptoms occur. Patient agreeable to treatment plan. Iliana Simms APRN.[facility]12-29-2024 History of Present illness Narrative* Iliana Simms APRN.[facility] - 06/30/2024 10:07 AM EST CC: Patient presents with: Ear Pain: R ear pain, pain down into neck x5 days HPI: Madhuri Paulson is a 23 year old female who presents to the office with complaint of ear symptomsfor 5 days. Symptoms are worsening Associated symptoms includes ear pain. Denies nausea, vomiting , and diarrhea. Treatments tried include nothing so far. with no relief of symptoms. Sick contacts: unknown. History of asthma, frequent episodes of bronchitis, chronic bronchitis, bronchiectasis or COPD: No Smoker: No Seasonal/environmental allergies: No The ROS is otherwise negative. The patient's pmh, medications, allergies, and past visits are reviewed. PHYSICAL EXAM: BP 102/72 Pulse 91 Temp 36.3 C (97.3 F) Resp 18 Wt 89 kg (196 lb 3.4 oz) LMP 06/13/2024 (Exact Date) SpO2 97% BMI 33.68 kg/m General appearance: alert, cooperative, pleasant, in no acute distress Head: Normocephalic Eyes: EOM's intact, conjunctiva pink and moist, no icterus, sclera white, non-injected Ears: Right ear: External ear/canal- Normal, TM - erythematous. Left ear: External ear/canal- Normal, TM - clear with good landmarks Oropharynx:moist without lesions, No erythema, exudates or tonsillar hypertrophy. Heart: Negative. RRR without obvious murmur, gallop, or rubs. No ectopy. Lungs: clear to auscultation, without rales or wheeze, good air exchange PAST MEDICAL HISTORY Diagnosis Date Acute pain of right shoulder 01/21/2019 Chiari malformation type I (HCC) Lymphedema Menarche 09/2011 PMH - PAST MEDICAL HISTORY OF spina bifida PMH - PAST MEDICAL HISTORY OF 01/07/2004 color vision-normal PMH - PAST MEDICAL HISTORY OF bilateral club feet PMH - PAST MEDICAL HISTORY OF broken leg in 10/09 PAST SURGICAL HISTORY Procedure Laterality Date AFP, OPEN SPINA BIFIDA ([facility]) Spina Bifida surgery during infancy APPENDICONEOVESICOSTOMY 06/20/2016 APPENDICONEOVESICOSTOMY 12/2016 COLONOSCOPY FLX DX W/COLLJ SPEC WHEN PFRMD 10/24/2017 Colonoscopy KNEE RIGHT OP SURGERY 10/2012 right knee PAST SURGICAL HISTORY OF Bilateral Foot reconstruction x 4-5 times PAST SURGICAL HISTORY OF laser surgery on birthmark PAST SURGICAL HISTORY OF 10/2010 right knee surgery TONSILLECTOMY & ADENOIDECTOMY <AGE 10 ALLERGIES Banana and Latex MEDICATIONS albuterol HFA (PROVENTIL HFA, VENTOLIN HFA) 90 mcg/actuation inhaler Inhale 2 Puffs as instructed every 6 hours as needed for wheezing/shortness of breath. acetaminophen (TYLENOL) 500 mg tablet 2 tablets by ORAL/FEEDING TUBE route every 8 hours as needed for pain. Catheter (FEMALE CATHETER) 14 Fr misc 14 Chilean, 16 inch female straight tip intermittent catheter,to use q6 hrs prn urinary retention B.animalis,bifid,infantis,long (PROBIOTIC 4X ORAL) Take 1 capsule by mouth once daily. polyethylene glycol 3350 (MIRALAX) 17 gram/dose powder One quarter capful added to 800 cc of water and then flushed through the Banda stoma FAMILY HISTORY Problem Relation Age of Onset Uterine Cancer Mother Ovarian cancer Mother Anesthesia Problems Maternal Uncle Patient's mother states her brother coded during a procedure as a baby. Not actually diagnosed withanything specific and did not undergo further anesthesia as an adult. Hypertension Maternal Grandmother Breast Cancer Maternal Grandmother Heart Maternal Grandfather Renal Cell Cancer Maternal Grandfather Thyroid Cancer Maternal Grandfather Hypertension Paternal Grandmother Hypertension Paternal Grandfather Heart Paternal Grandfather Social History Tobacco Use Smoking status: Never Smokeless tobacco: Never Tobacco comments: no smokers in home Vaping Use Vaping status: Never Used Substance Use Topics Alcohol use: Yes Comment: Not weekly Drug use: No ASSESSMENT/PLAN: 1. Acute otitis media, right - ICD9: 382.9, ICD10: H66.91 - CEFDINIR 300 MG CAPSULE Will add flonase and claritin Prescription instructions reviewed with patient as applicable. Potential red flag symptoms discussed with the patient. Reviewed appropriate action plan to take if red flag symptoms occur. Patient agreeable to treatment plan. Iliana Simms APRN.FANYN [facility] Telephone encounter Note * Telephone Encounter - Shannon Acharya MA - 06/19/2024 5:16 PM EST Pt informed, verbalized understanding Shannon Acharya MA [facility]12-18-2024 Miscellaneous Notes* Telephone Encounter - Shannon Acharya MA - 06/19/2024 5:16 PM EST Pt informed, verbalized understanding Shannon Acharya MA * Telephone Encounter - Caitlin Curtis APRN.FANNY - 06/19/2024 5:06 PM EST No, I am so sorry! I have no idea why I accidentally sent the liquid version. New rx of PO pills issent in. So Caitlin lantigua APRN.SIGNAL INSPECTOR * Telephone Encounter - Elier Andrews RN - 06/19/2024 4:59 PM EST Patient asking Caitlin, if you meant to sent the Augmentin liquid to [facility] pharmacy. Reports the pharmacist questioned it also since it is a valerie dose. Patient just wants to make sure she is suppose to take the liquid augmentin. Pt states she is able to swallow pills. Please advise pt via MC or telephone. documented in this encounterB[facility]12-[facility]24 Telephone encounter Note * Telephone Encounter - Caitlin Curtis APRN.FANNY - 06/19/2024 5:06 PM EST No, I am so sorry! I have no idea why I accidentally sent the liquid version. New rx of PO pills issent in. So Caitlin lantigua APRN.SIGNAL INSPECTOR [facility]12-18-[facility]24 Telephone encounter Note* Telephone Encounter - Elier Andrews RN - 06/19/2024 4:59 PM EST Patient asking Caitlin, if you meant to sent the Augmentin liquid to [facility] pharmacy. Reports the pharmacist questioned it also since it is a valerie dose. Patient just wants to make sure she is suppose to take the liquid augmentin. Pt states she is able to swallow pills. Please advise pt via MC or telephone. [facility]12-17-[facility] Telephone encounter Note* Telephone Encounter - Wood Blevins RN - 06/18/2024 5:15 PM EST PATIENT NOTIFIED OF INFORMATION [facility]12-17-2024 Miscellaneous Notes* Telephone Encounter - Wood Blevins RN - 06/18/2024 5:15 PM EST PATIENT NOTIFIED OF INFORMATION * Telephone Encounter - Janis Lofton MA - 06/18/2024 4:29 PM EST Spoke to [facility], Augmentin 250-62.5/5mL ready for order picker LM for patient to contact office to inform. Janis Lofton MA * Telephone Encounter - Janis Lofton MA - 06/18/2024 2:32 PM EST Patient seen by Caitlin Curtis on 06/17/24. Augmentin 250-62.5/5 mL [facility] Phone call to pharmacy, they carry Augmentin 500/5mL, line cut out. Will try again. Janis Lofton MA * Telephone Encounter - Juan Manuel Antonio DO - 06/18/2024 1:41 PM EST I Didn't see this patient the other day Please call and clarify if rx needs to be a liquid and call pharmacy then to determine how rx needsto be called in Juan Manuel Antonio DO * Telephone Encounter - Shannon Acharya MA - 06/18/2024 7:39 AM EST Please review pt message- Ct Dr. Antonio s office, I went into my pharmacy and they don t carry the prescription for Augmentin dose that was prescribed to me after today s appointment. Is there anyway you could double check to make sure it was the right dose ordered and [facility] this. Thank you so much for your time and help. documented in this encounterB[facility]12-17-2024 Telephone encounter Note * Telephone Encounter - Janis Lofton MA - 06/18/2024 4:29 PM EST Spoke to [facility], Augmentin 250-62.5/5mL ready for order picker LM for patient to contact office to inform. Janis Lofton MA [facility]12-17-[facility]24 Telephone encounter Note* Telephone Encounter - Janis Lofton MA - 06/18/2024 2:32 PM EST Patient seen by Caitlin Curtis on 06/17/24. Augmentin 250-62.5/5 mL suspension [facility]. Phone call to pharmacy, they carry Augmentin 500/5mL, line cut out. Will try again. Janis Lofton MA [facility]12-17-[facility]24 Telephone encounter Note* Telephone Encounter - Juan Manuel Antonio DO - 06/18/2024 1:41 PM EST I Didn't see this patient the other day Please call and clarify if rx needs to be a liquid and call pharmacy then to determine how rx needsto be called in Juan Manuel Antonio DO [facility]12-[facility] Telephone encounter Note* Telephone Encounter - Shannon Acharya MA - 06/18/2024 7:39 AM EST Please review pt message- Hi Dr. Antonio s office, I went into my pharmacy and they don t carry the prescription for Augmentin dose that was prescribed to me after today s appointment. Is there anyway you could double check to make sure it was the right dose ordered and contact [facility] regarding this. Thank you so much for your time and help. [facility]12-[facility] Telephone encounter Note* Telephone Encounter - Shannon Acharya MA - 06/18/2024 7:38 AM EST Turned into TE Shannon Acharya MA [facility]12-17-2024 Miscellaneous Notes* Telephone Encounter - Shannon Acharya MA - 06/18/2024 7:38 AM EST Turned into TE Shannon Acharya MA documented in this encounterBellevue Hospital12-16-2024 History of Present illness Narrative* Caitlin Curtis, RN CLINICAL.SIGNAL INSPECTOR - 06/17/2024 10:00 AM EST Chief Complaint Patient presents with: urgent care f/up: Covid, pneumonia. Cough remains and sob hard to catch breath HPI Madhuri Paulson is a 23 year old female who presents here today for Above Complaints. Madhuri is an established patient of Dr. Paco DO and myself. Concerns today... Express care follow-up --- Express care visit on 06/12 d/t cough and SOB x 3 weeks. Diagnosed clinically with lower respiratory tract here [[facility] care] 05/29/24 and treated with doxycyline and inhaler. She had prednisone taper added at primary care 05/31/24. Her fiance tested positive for COVID after that visit and she had a positive home COVID test then too. Her URI symptoms and fever resolved but her chest feels like there is a pile of bricks on it still. ASSESSMENT/PLAN: 1. SOB (shortness of breath) - ICD9: 786.05, ICD10: R06.02 (primary diagnosis) 2. Acute COVID-19 - ICD9: 079.89, ICD10: U07.1 - XR CHEST 2V FRONTAL/LAT IMPRESSION: No acute radiographic abnormality. Persistent dyspnea and chest pressure following COVID. No current evidence for pneumonia. Schedule follow up with primary care or pulmonology. Today in office.... Pt reports after antibiotic she felt somewhat better but now much worse again. Reports deep, productive cough with thick green/deras sputum. No hx of asthma -- using inhaler as prescribed about every 6 hours with little relief. Feels like bricks are sitting on her chest. Reports SOB with exertion and chest pain & dizziness when taking deep breaths. Recent COVID + about 2 weeks ago in the middle of all of this. No other concerns or complaints. Past medical history, appointments, medications, allergies reviewed. Previous Medical History PAST MEDICAL HISTORY Diagnosis Date Acute pain of right shoulder 01/21/2019 Chiari malformation type I (HCC) Lymphedema Menarche 09/2011 PMH - PAST MEDICAL HISTORY OF spina bifida PMH - PAST MEDICAL HISTORY OF 01/07/2004 color vision-normal PMH - PAST MEDICAL HISTORY OF bilateral club feet PMH - PAST MEDICAL HISTORY OF broken leg in 10/09 Previous Surgical History PAST SURGICAL HISTORY Procedure Laterality Date AFP, OPEN SPINA BIFIDA ([facility]) Spina Bifida surgery during infancy APPENDICONEOVESICOSTOMY 06/20/2016 APPENDICONEOVESICOSTOMY 12/2016 COLONOSCOPY FLX DX W/COLLJ SPEC WHEN PFRMD 10/24/2017 Colonoscopy KNEE RIGHT OP SURGERY 10/2012 right knee PAST SURGICAL HISTORY OF Bilateral Foot reconstruction x 4-5 times PAST SURGICAL HISTORY OF laser surgery on birthmark PAST SURGICAL HISTORY OF 10/2010 right knee surgery TONSILLECTOMY & ADENOIDECTOMY <AGE 10 Family History FAMILY HISTORY Problem Relation Age of Onset Uterine Cancer Mother Ovarian cancer Mother Anesthesia Problems Maternal Uncle Patient's mother states her brother coded during a procedure as a baby. Not actually diagnosed withanything specific and did not undergo further anesthesia as an adult. Hypertension Maternal Grandmother Breast Cancer Maternal Grandmother Heart Maternal Grandfather Renal Cell Cancer Maternal Grandfather Thyroid Cancer Maternal Grandfather Hypertension Paternal Grandmother Hypertension Paternal Grandfather Heart Paternal Grandfather Patient Allergies ALLERGIES Allergen Reactions Banana Unknown Per diagnosis Latex Unknown Per diagnosis Current Medications Current Outpatient Medications on File Prior to Visit Medication Sig benzonatate (TESSALON PERLE) 100 mg capsule Take 1 capsule by mouth three times a day as needed forcough. (Patient not taking: Reported on 06/12/2024) albuterol HFA (PROVENTIL HFA, VENTOLIN HFA) 90 mcg/actuation inhaler Inhale 2 Puffs as instructed every 6 hours as needed for wheezing/shortness of breath. acetaminophen (TYLENOL) 500 mg tablet 2 tablets by ORAL/FEEDING TUBE route every 8 hours as needed for pain. Catheter (FEMALE CATHETER) 14 Fr misc 14 Chilean, 16 inch female straight tip intermittent catheter,to use q6 hrs prn urinary retention B.animalis,bifid,infantis,long (PROBIOTIC 4X ORAL) Take 1 capsule by mouth once daily. polyethylene glycol 3350 (MIRALAX) 17 gram/dose powder One quarter capful added to 800 cc of water and then flushed through the Banda stoma No current facility-administered medications on file prior to visit. Social History Social History Tobacco Use Smoking status: Never Smokeless tobacco: Never Tobacco comments: no smokers in home Vaping Use Vaping status: Never Used Substance Use Topics Alcohol use: Yes Comment: Not weekly Drug use: No REVIEW OF SYSTEMS: as above Reviewed relevant PMHx, PSHx, Social Hx, current medications and allergies. Review of Symptoms REVIEW OF SYSTEMS See HPI. EXAM: BP 120/68 (BP Site: Left Arm, BP Position: Sitting, BP Cuff Size: Large Adult) Pulse 99 Resp 14 Wt 90.3 kg (199 lb 1.2 oz) LMP 05/15/2024 (Exact Date) SpO2 98% BMI 34.17 kg/m General Appearance: Well appearing, alert, in no acute distress, well-hydrated, well nourished.. Skin: Skin color, texture, turgor normal, no suspicious rashes or lesions. Head: Normocephalic, no masses, lesions, tenderness or abnormalities. Eyes: Anicteric sclera. Pupils are equally round and reactive to light. Extraocular movements are intact. . Lungs: Lungs clear to auscultation. No wheezing, rhonchi, rales. Unlabored on room air Shortness ofbreath: Upon exertion Cough. Heart: RRR without murmur, gallop, or rubs. No ectopy. Health Maintenance List Hepatitis C Screening Never done Cervical Cancer Screening due on 11/16/2024 Influenza Vaccine(1) due on 12/30/2024 Covid-19 Vaccine(3 - season) due on 05/31/2025 Depression Screening due on 12/26/2024 Anxiety Screening due on 12/26/2024 DTaP,Tdap,Td Vaccine(8 - Td or Tdap) due on 01/27/2031 Hepatitis B Vaccine Completed HPV Vaccine Completed HIV Screening Completed ASSESSMENT/PLAN: 1. Subacute cough - ICD9: 786.2, ICD10: R05.2 (primary diagnosis) Persistent ongoing cough. Recent COVID + Chest CT to rule out PE. Trial different antibiotic of Augmentin BID x 10 days and medrol dose pack. Continue inhaler q4 hours as needed. May consider asthma testing once recovered. - CT CHEST W IVCON - IV CONTRAST (RADIOLOGY PROCEDURE) - NOT ON MAR - AMOXICILLIN 250 MG-POTASSIUM CLAVULANATE 62.5 MG/5 ML ORAL SUSPENSION - METHYLPREDNISOLONE 4 MG TABLETS IN A DOSE PACK - CODEINE 10 MG-GUAIFENESIN 100 MG/5 ML ORAL LIQUID 2. SOB (shortness of breath) - ICD9: 786.05, ICD10: R06.02 See above. - CT CHEST W IVCON - IV CONTRAST (RADIOLOGY PROCEDURE) - NOT ON MAR - AMOXICILLIN 250 MG-POTASSIUM CLAVULANATE 62.5 MG/5 ML ORAL SUSPENSION - METHYLPREDNISOLONE 4 MG TABLETS IN A DOSE PACK - CODEINE 10 MG-GUAIFENESIN 100 MG/5 ML ORAL LIQUID 3. Pleuritic pain - ICD9: 786.52, ICD10: R07.81 See above. - CT CHEST W IVCON - IV CONTRAST (RADIOLOGY PROCEDURE) - NOT ON MAR - AMOXICILLIN 250 MG-POTASSIUM CLAVULANATE 62.5 MG/5 ML ORAL SUSPENSION - METHYLPREDNISOLONE 4 MG TABLETS IN A DOSE PACK - CODEINE 10 MG-GUAIFENESIN 100 MG/5 ML ORAL LIQUID RTO as needed, if no improvement. Medical Decision Making: Problems: Moderate: Acute illness with systemic symptoms and New problem with uncertain prognosis Data: Unique test(s) ordered: 1 Risk: Moderate: Drug management Medical Decision Making Level: 4 - Moderate Prescription instructions reviewed with patient as applicable. Potential red flag symptoms discussed with the patient. Reviewed appropriate action plan to take if red flag symptoms occur. Patient agreeable to treatment plan. Caitlin Andino APRN.FANNY [address] [place] [address] documented in this encounterBelle[facility]12-16-[facility]24 NoteHNO ID: [id number] Author: CAITLIN CURTIS APRN.FANNY Service: ? Author Type: Nurse Practitioner Type: Progress Notes Filed: 06/17/2024 10:57 Note Text: Chief Complaint Patient presents with: urgent care f/up: Covid, pneumonia. Cough remains and sob hard to catch breath HPI Madhuri Paulson is a 23 year old female who presents here today for Above Complaints. Madhuri is an established patient of Dr. Antonio, and myself. Concerns today... Express care follow-up --- Express care visit on 06/12 d/t cough and SOB x 3 weeks. Diagnosed clinically with lower respiratory tract here [express care] 05/29/24 and treated with doxycyline and inhaler. She had prednisone taper added at primary care 05/31/24. Her fiance tested positive for COVID after that visit and she had a positive home COVID test then too. Her URI symptoms and fever resolved but her chest feels like there is a pile of bricks on it still. ASSESSMENT/PLAN: 1. SOB (shortness of breath) - ICD9: 786.05, ICD10: R06.02 (primary diagnosis) 2. Acute COVID-19 - ICD9: 079.89, ICD10: U07.1 - XR CHEST 2V FRONTAL/LAT IMPRESSION: No acute radiographic abnormality. Persistent dyspnea and chest pressure following COVID. No current evidence for pneumonia. Schedule follow up with primary care or pulmonology. Today in office.... Pt reports after antibiotic she felt somewhat better but now much worse again. Reports deep, productive cough with thick green/deras sputum. No hx of asthma -- using inhaler as prescribed about every 6 hours with little relief. Feels like bricks are sitting on her chest. Reports SOB with exertion and chest pain AND dizziness when taking deep breaths. Recent COVID + about 2 weeks ago in the middle of all of this. No other concerns or complaints. Past medical history, appointments, medications, allergies reviewed. Previous Medical History PAST MEDICAL HISTORY Diagnosis Date Acute pain of right shoulder 01/21/2019 Chiari malformation type I (HCC) Lymphedema Menarche 09/2011 PMH - PAST MEDICAL HISTORY OF spina bifida PMH - PAST MEDICAL HISTORY OF 01/07/2004 color vision-normal PMH - PAST MEDICAL HISTORY OF bilateral club feet PMH - PAST MEDICAL HISTORY OF broken leg in 10/09 Previous Surgical History PAST SURGICAL HISTORY Procedure Laterality Date AFP, OPEN SPINA BIFIDA ([facility]) Spina Bifida surgery during infancy APPENDICONEOVESICOSTOMY 06/20/2016 APPENDICONEOVESICOSTOMY 12/2016 COLONOSCOPY FLX DX W/COLLJ SPEC WHEN PFRMD 10/24/2017 Colonoscopy KNEE RIGHT OP SURGERY 10/2012 right knee PAST SURGICAL HISTORY OF Bilateral Foot reconstruction x 4-5 times PAST SURGICAL HISTORY OF laser surgery on birthmark PAST SURGICAL HISTORY OF 10/2010 right knee surgery TONSILLECTOMY AND ADENOIDECTOMY Family History FAMILY HISTORY Problem Relation Age of Onset Uterine Cancer Mother Ovarian cancer Mother Anesthesia Problems Maternal Uncle Patient's mother states her brother coded during a procedure as a baby. Not actually diagnosed with anything specific and did not undergo further anesthesia as an adult. Hypertension Maternal Grandmother Breast Cancer Maternal Grandmother Heart Maternal Grandfather Renal Cell Cancer Maternal Grandfather Thyroid Cancer Maternal Grandfather Hypertension Paternal Grandmother Hypertension Paternal Grandfather Heart Paternal Grandfather Patient Allergies ALLERGIES Allergen Reactions Banana Unknown Per diagnosis Latex Unknown Per diagnosis Current Medications Current Outpatient Medications on File Prior to Visit Medication Sig benzonatate (TESSALON PERLE) 100 mg capsule Take 1 capsule by mouth three times a day as needed for cough. (Patient not taking: Reported on 06/12/2024) albuterol HFA (PROVENTIL HFA, VENTOLIN HFA) 90 mcg/actuation inhaler Inhale 2 Puffs as instructed every 6 hours as needed for wheezing/shortness of breath. acetaminophen (TYLENOL) 500 mg tablet 2 tablets by ORAL/FEEDING TUBE route every 8 hours as needed for pain. Catheter (FEMALE CATHETER) 14 Fr misc 14 [place]an, 16 inch female straight tip intermittent catheter, to use q6 hrs prn urinary retention B.animalis,bifid,infantis,long (PROBIOTIC 4X ORAL) Take 1 capsule by mouth once daily. polyethylene glycol 3350 (MIRALAX) 17 gram/dose powder One quarter capful added to 800 cc of water and then flushed through the Banda stoma No current facility-administered medications on file prior to visit. Social History Social History Tobacco Use Smoking status: Never Smokeless tobacco: Never Tobacco comments: no smokers in home Vaping Use Vaping status: Never Used Substance Use Topics Alcohol use: Yes Comment: Not weekly Drug use: No REVIEW OF SYSTEMS: as above Reviewed relevant PMHx, PSHx, Social Hx, current medications and allergies. Review of Symptoms REVIEW OF SYSTEMS See HPI. EXAM: BP 120/68 (BP Site: Left Arm, BP P (more content not included)...[facility]12-16-2024 Evaluation note* Diagnosis Onset Date Resolution Status Admit Date Bowel obstruction acute Decembe r 2023 7:59am Bowel obstruction due to retraction of stoma acute June 7:59am [facility] Work Phone: 1(594) 858-928812-11-2024 NoteHNO ID: [id number] Author: ILA SEGURA RT(R) Service: ? Author Type: Tool Grinding Technician Type: Progress Notes Filed: 06/12/2024 18:56 Note Text: Radiology Service Progress Note PATIENT NAME: Madhuri Paulson DATE OF SERVICE: June 12, 2024 TIME: 6:49 PM PATIENT IDENTITY VERIFICATION COMPLETED USING TWO (2) IDENTIFIERS: Name and Date of confirmed by patient verbally. FALL SCREENING: Has the patient had 2 falls in the last year or 1 fall with injury or currently using an Ambulatory Assistive Device (Walker, Cane, Wheelchair, Crutches, etc.)? No PATIENT GENDER DATA: Female. status: : No status: NO. PATIENT RELEVANT IMPLANT DATA REVIEWED: Yes PATIENT PRESENTS WITH AN IMPLANTABLE OR ATTACHED ARCHITECTURAL ASSOCIATE: No RADIOLOGY DEPARTMENT: General X-ray: Exam(s) Completed: Chest X-Ray PERIPHERAL IV DATA: Not applicable SIGNED BY: RT Diana(R) June 12, 2024 6:49 [facility]12-11-2024 NoteHNO ID: [id number] Author: EARLINE TAY MD Service: ? Author Type: Physician Type: Progress Notes Filed: 06/12/2024 19:34 Note Text: Patient presents with: Cough: Chest congestion, sob x 2.5 weeks HPI: Cough and shortness of breath for almost 3 weeks. Diagnosed clinically with lower respiratory tract here 05/29/24 and treated with doxycyline and inhaler. She had prednisone taper added at primary care 05/31/24. Her fiance tested positive for COVID after that visit and she had a positive home COVID test then too. Her URI symptoms and fever resolved but her chest feels like there is a pile of bricks on it still. Positive symptoms: Cough, Shortness of breath, Wheezing, Chest tightness, Negative symptoms: Sore throat, Sinus pressure, Nasal Congestion, Rhinorrhea, Fever, Headache, OTC: finished doxycycline and prednisone. Has albuterol and tessalon. Denies history of asthma, reactive airway disease, or pneumonia. PAST MEDICAL HISTORY Diagnosis Date Acute pain of right shoulder 01/21/2019 Chiari malformation type I (HCC) Lymphedema Menarche 09/2011 PMH - PAST MEDICAL HISTORY OF spina bifida PMH - PAST MEDICAL HISTORY OF 01/07/2004 color vision-normal PMH - PAST MEDICAL HISTORY OF bilateral club feet PMH - PAST MEDICAL HISTORY OF broken leg in 10/09 MEDICATIONS: Current Outpatient Medications Medication Sig albuterol HFA (PROVENTIL HFA, VENTOLIN HFA) 90 mcg/actuation inhaler Inhale 2 Puffs as instructed every 6 hours as needed for wheezing/shortness of breath. acetaminophen (TYLENOL) 500 mg tablet 2 tablets by ORAL/FEEDING TUBE route every 8 hours as needed for pain. Catheter (FEMALE CATHETER) 14 Fr misc 14 [place]an, 16 inch female straight tip intermittent catheter, to use q6 hrs prn urinary retention Lilliebifid,infantis,long (PROBIOTIC 4X ORAL) Take 1 capsule by mouth once daily. polyethylene glycol 3350 (MIRALAX) 17 gram/dose powder One quarter capful added to 800 cc of water and then flushed through the Banda stoma benzonatate (TESSALON PERLE) 100 mg capsule Take 1 capsule by mouth three times a day as needed for cough. (Patient not taking: Reported on 06/12/2024) No current facility-administered medications for this visit. ALLERGIES: ALLERGIES Allergen Reactions Banana Unknown Per diagnosis Latex Unknown Per diagnosis VITALS: BP 122/84 Pulse 95 Temp 36.9 ?C (98.5 ?F) Resp 21 Wt 90.8 kg (200 lb 2.8 oz) LMP 05/15/2024 (Exact Date) SpO2 97% BMI 34.36 kg/m? Pulse Ox 99% with ambulation. PHYSICAL EXAM: GEN: Pleasant, in no acute distress. HEENT: PERRL, EOMI, conjunctiva clear Ears: canals clear. TMs without erythema, bulge, or effusion Sinuses: non-tender frontal sinus, non-tender maxillary sinuses Throat: moist mucous membranes, no erythema, no exudate Neck: supple, no thyromegaly, no lymphadenopathy HEART: regular rate and rhythm, no murmurs LUNGS: clear to auscultation, no wheezes or crackles, no increased WOB ASSESSMENT/PLAN: 1. SOB (shortness of breath) - ICD9: 786.05, ICD10: R06.02 (primary diagnosis) 2. Acute COVID-19 - ICD9: 079.89, ICD10: U07.1 - XR CHEST 2V FRONTAL/LAT IMPRESSION: No acute radiographic abnormality. Persistent dyspnea and chest pressure following COVID. No current evidence for pneumonia. Schedule follow up with primary care or pulmonology. Follow up in the ER with worsening cough, worsening shortness of breath, increasing chest pain, dizziness, palpitations, or late onset fever. Earline Tay, [facility]12-03-2024 NoteHNO ID: [id number] Author: ALECIA GALLEGOS PA-C Service: ? Author Type: Physician Welfare Eligibility Worker Type: Progress Notes Filed: 06/04/2024 10:59 Note Text: This note was created using NoteWriter. Subjective Madhuri S Paulson is a 23 year old female for follow up after chiari decompression on 12/15/23. Pmhx of spina bifida, lymphedema on the R h/o tonsillectomy, banda stoma, knee surgeries, foot surgeries, neurogenic bowel and bladder. She is s/p detethering at . Rarely has tingling in the hands, aguero's are happening randomly. Usually after doing a lot of work, looking up and down a lot. The nausea is random when it happens and this has gotten better. If she gets a aguero it takes a while to get better. She had messaged after having neck pain x 1 week. She had been helping her grandmother hang lights and had been doing a lot of repetitive neck flexion and extension. This took about a week to recover. Review of Systems Gastrointestinal: Positive for nausea. Negative for vomiting. Neurological: Positive for dizziness and headaches. Objective BP 131/79 Pulse 113 Temp 36.8 ?C (98.2 ?F) (Oral) Resp 18 Wt 89.8 kg (197 lb 15.6 oz) LMP 05/15/2024 (Exact Date) SpO2 98% BMI 33.98 kg/m? Physical Exam Constitutional: Appearance: Normal appearance. HENT: Head: Normocephalic and atraumatic. Eyes: Extraocular Movements: Extraocular movements intact. Conjunctiva/sclera: Conjunctivae normal. Pulmonary: Effort: Pulmonary effort is normal. No respiratory distress. Skin: General: Skin is warm and dry. Neurological: General: No focal deficit present. Mental Status: She is alert and oriented to person, place, and time. GCS: GCS eye subscore is 4. GCS verbal subscore is 5. GCS motor subscore is 6. Cranial Nerves: No dysarthria or facial asymmetry. Motor: No weakness or pronator drift. Coordination: Coordination normal. Tjydpn-Utst-Gfwjir Test normal. Gait: Gait abnormal. Comments: Spina bifida gait Psychiatric: Mood and Affect: Mood normal. Behavior: Behavior normal. Assessment and Plan S/p chiari decompression on 12/15/23 H/o spina bifida with detethering at No shunt Ambulates, uses wheelchair for distances +neurogenic bowel and bladder Overall doing well after chiari Improvement in tingling of hands, aguero's Some neck pain with frequent extension and flexion MRI cervical completed. Shows persistent pseudomeningocele Reviewed with Dr. Story He reviewed and felt that it looked OK and to give it more time. DW pt that since she is doing so well now, we would recommend an MRI in one year. If symptoms worsen, we can move MRI. She understands and agrees. I spent a total of 20 minutes on the date of the service which included preparing to see the patient, mvnp-ob-stho patient care, completing clinical documentation, obtaining and/or reviewing separately obtained history, performing a medically appropriate examination, counseling and educating the patient/family/caregiver, ordering medications, tests, or procedures, communicating with other HCPs (not separately reported), independently interpreting results (not separately reported), communicating results to the patient/family/caregiver, and care coordination (not separately reported). . [facility]12-03-2024 History of Present illness Narrative* Alecia Gallegos PA-C - 06/04/2024 10:26 AM EST This note was created using ShopSpotriter. Subjective Madhuri Paulson is a 23 year old female for follow up after chiari decompression on 12/15/23. Pmhxof spina bifida, lymphedema on the R h/o tonsillectomy, banda stoma, knee surgeries, foot surgeries, neurogenic bowel and bladder. She is s/p detethering at . Rarely has tingling in the hands, aguero's are happening randomly. Usually after doing a lot of work, looking up and down a lot. The nausea is random when it happens and this has gotten better. If she gets a aguero it takes a while to get better. She had messaged after having neck pain x 1 week. She had been helping her grandmother hang lights and had been doing a lot of repetitive neck flexion and extension. This took about a week to recover. Review of Systems Gastrointestinal: Positive for nausea. Negative for vomiting. Neurological: Positive for dizziness and headaches. Objective BP 131/79 Pulse 113 Temp 36.8 C (98.2 F) (Oral) Resp 18 Wt 89.8 kg (197 lb 15.6 oz) LMP 05/15/2024 (Exact Date) SpO2 98% BMI 33.98 kg/m Physical Exam Constitutional: Appearance: Normal appearance. HENT: Head: Normocephalic and atraumatic. Eyes: Extraocular Movements: Extraocular movements intact. Conjunctiva/sclera: Conjunctivae normal. Pulmonary: Effort: Pulmonary effort is normal. No respiratory distress. Skin: General: Skin is warm and dry. Neurological: General: No focal deficit present. Mental Status: She is alert and oriented to person, place, and time. GCS: GCS eye subscore is 4. GCS verbal subscore is 5. GCS motor subscore is 6. Cranial Nerves: No dysarthria or facial asymmetry. Motor: No weakness or pronator drift. Coordination: Coordination normal. Gqsvbg-Eqpw-Nescef Test normal. Gait: Gait abnormal. Comments: Spina bifida gait Psychiatric: Mood and Affect: Mood normal. Behavior: Behavior normal. Assessment and Plan S/p chiari decompression on 12/15/23 H/o spina bifida with detethering at No shunt Ambulates, uses wheelchair for distances +neurogenic bowel and bladder Overall doing well after chiari Improvement in tingling of hands, aguero's Some neck pain with frequent extension and flexion MRI cervical completed. Shows persistent pseudomeningocele Reviewed with Dr. Story He reviewed and felt that it looked OK and to give it more time. DW pt that since she is doing so well now, we would recommend an MRI in one year. If symptoms worsen, we can move MRI. She understands and agrees. I spent a total of 20 minutes on the date of the service which included preparing to see the patient, [id number] patient care, completing clinical documentation, obtaining and/or reviewing separately obtained history, performing a medically appropriate examination, counseling and educating the pat ient/family/caregiver, ordering medications, tests, or procedures, communicating with other HCPs (not separately reported), independently interpreting results (not separately reported), communicatingresults to the patient/family/caregiver, and care coordination (not separately reported). . [facility] Nurse Note* Ashlyn Sharif MA - 06/04/2024 10:20 AM EST Additional intake questions: Has the patient had fever, nausea, vomiting, diarrhea, constipation, fatigue for > 1 week? No Does the patient have a decreased appetite? No Does patient want to see a Hand Meat Salter? No (yes to any of above refer patient to schedulers for dietitian appointment) ) Does patient have any new or increased numbness or tingling of extremities? No Is patient interested in fertility information? No Does patient need any prescription refills? No Does patient have an advanced directive in place? No, Patient referred to [facility]12-03-[facility] Nurse Note* Ashlyn Sharif MA - 06/04/2024 10:20 AM EST Additional intake questions: Has the patient had fever, nausea, vomiting, diarrhea, constipation, fatigue for > 1 week? No Does the patient have a decreased appetite? No Does patient want to see a Hand Meat Salter? No (yes to any of above refer patient to schedulers for dietitian appointment) ) Does patient have any new or increased numbness or tingling of extremities? No Is patient interested in fertility information? No Does patient need any prescription refills? No Does patient have an advanced directive in place? No, Patient referred to [facility] documented in [facility]11-29-[facility] History of Present illness Narrative* Caitlin Curtis APRN.SIGNAL INSPECTOR - 05/31/2024 1:00 PM EST Chief Complaint Patient presents with: pneumonia, re evaluate HPI Madhuri Paulson is a 23 year old female who presents here today for Above Complaints. Madhuri is an established patient of Dr. Paco DO . Concerns today.. Per [facility]: I went to urgent care Monday night with a bad cough, wheezing, and shortness of breath. I was told I have pneumonia and was put on antibiotics and provided an inhaler. As of this morning I m not seeing much improvement. Is there anyway I could get a steroid called in if that is something you think could help? Thank you so much. In office today, pt c/o ... Pt reports ongoing chest pressure, congestion, and severe cough. Reports SOB with little exertion. Has taken antibiotic x 2 days and inhaler every 6 hours without any relief. Asking about prednisone.No chest x-ray d/t x-ray machine was down on Monday. Also asking about extending antibiotic as no improvement so far and mother had similar symptoms and dx of pneumonia a few weeks ago and needed extended antibiotic regimen to fight it off. No recent known fevers but does report chills and nightsweats through the night but has not checked with thermometer. No other concerns or complaints. Past medical history, appointments, medications, allergies reviewed. Previous Medical History PAST MEDICAL HISTORY Diagnosis Date Acute pain of right shoulder 01/21/2019 Chiari malformation type I (HCC) Lymphedema Menarche 09/2011 PMH - PAST MEDICAL HISTORY OF spina bifida PMH - PAST MEDICAL HISTORY OF 01/07/2004 color vision-normal PMH - PAST MEDICAL HISTORY OF bilateral club feet PMH - PAST MEDICAL HISTORY OF broken leg in 10/09 Previous Surgical History PAST SURGICAL HISTORY Procedure Laterality Date AFP, OPEN SPINA BIFIDA ([facility]) Spina Bifida surgery during infancy APPENDICONEOVESICOSTOMY 06/20/2016 APPENDICONEOVESICOSTOMY 12/2016 COLONOSCOPY FLX DX W/COLLJ SPEC WHEN PFRMD 10/24/2017 Colonoscopy KNEE RIGHT OP SURGERY 10/2012 right knee PAST SURGICAL HISTORY OF Bilateral Foot reconstruction x 4-5 times PAST SURGICAL HISTORY OF laser surgery on birthmark PAST SURGICAL HISTORY OF 10/2010 right knee surgery TONSILLECTOMY & ADENOIDECTOMY <AGE 10 Family History FAMILY HISTORY Problem Relation Age of Onset Uterine Cancer Mother Ovarian cancer Mother Anesthesia Problems Maternal Uncle Patient's mother states her brother coded during a procedure as a baby. Not actually diagnosed withanything specific and did not undergo further anesthesia as an adult. Hypertension Maternal Grandmother Breast Cancer Maternal Grandmother Heart Maternal Grandfather Renal Cell Cancer Maternal Grandfather Thyroid Cancer Maternal Grandfather Hypertension Paternal Grandmother Hypertension Paternal Grandfather Heart Paternal Grandfather Patient Allergies ALLERGIES Allergen Reactions Banana Unknown Per diagnosis Latex Unknown Per diagnosis Current Medications Current Outpatient Medications on File Prior to Visit Medication Sig doxycycline (VIBRA-TABS) 100 mg tablet Take 1 tablet by mouth two times a day for 5 days. albuterol HFA (PROVENTIL HFA, VENTOLIN HFA) 90 mcg/actuation inhaler Inhale 2 Puffs as instructed every 6 hours as needed for wheezing/shortness of breath. acetaminophen (TYLENOL) 500 mg tablet 2 tablets by ORAL/FEEDING TUBE route every 8 hours as needed for pain. Catheter (FEMALE CATHETER) 14 Fr misc 14 Chilean, 16 inch female straight tip intermittent catheter,to use q6 hrs prn urinary retention B.animalis,bifid,infantis,long (PROBIOTIC 4X ORAL) Take 1 capsule by mouth once daily. polyethylene glycol 3350 (MIRALAX) 17 gram/dose powder One quarter capful added to 800 cc of water and then flushed through the Banda stoma No current facility-administered medications on file prior to visit. Social History Social History Tobacco Use Smoking status: Never Smokeless tobacco: Never Tobacco comments: no smokers in home Vaping Use Vaping status: Never Used Substance Use Topics Alcohol use: Yes Comment: Not weekly Drug use: No REVIEW OF SYSTEMS: as above Reviewed relevant PMHx, PSHx, Social Hx, current medications and allergies. Review of Symptoms REVIEW OF SYSTEMS See HPI. EXAM: BP 104/64 (BP Site: Left Arm, BP Position: Sitting, BP Cuff Size: Large Adult) Pulse 104 Temp 36.9 C (98.4 F) Resp 16 Wt 86.2 kg (190 lb 0.6 oz) LMP 05/15/2024 (Exact Date) SpO2 98% BMI32.62 kg/m General Appearance: Well appearing, alert, in no acute distress, well-hydrated, well nourished.. Skin: Skin color, texture, turgor normal, no suspicious rashes or lesions. Head: Normocephalic, no masses, lesions, tenderness or abnormalities. Lungs: Positive findings: wheezing throughout with decreased breath sounds and rhonchi to R lower lobe Shortness of breath: Upon exertion Cough. Heart: RRR without murmur, gallop, or rubs. No ectopy. Health Maintenance List Hepatitis C Screening Never done Cervical Cancer Screening due on 11/16/2024 Influenza Vaccine(1) due on 12/30/2024 Covid-19 Vaccine( season) due on 05/31/2025 Depression Screening due on 12/26/2024 Anxiety Screening due on 12/26/2024 DTaP,Tdap,Td Vaccine(8 - Td or Tdap) due on 01/27/2031 Hepatitis B Vaccine Completed HPV Vaccine Completed HIV Screening Completed ASSESSMENT/PLAN: 1. Lower resp. tract infection - ICD9: 519.8, ICD10: J22 Continue with inhaler and antibiotic. Extend antibiotic x 5 days. Prednisone taper x 9 days. Tessalon perles as needed. No need for CXR as we would treat the same way regardless. RTO if no improvement. - PREDNISONE 10 MG TABLET - DOXYCYCLINE HYCLATE 100 MG TABLET - BENZONATATE 100 MG CAPSULE Prescription instructions reviewed with patient as applicable. Potential red flag symptoms discussed with the patient. Reviewed appropriate action plan to take if red flag symptoms occur. Patient agreeable to treatment plan. Caitlin Andino APRN.FANNY [address] [place] [address] documented in this [facility]11-29-2024 NoteHNO ID: [id number] Author: CAITLIN CURTIS APRN.FANNY Service: ? Author Type: Nurse Practitioner Type: Progress Notes Filed: 05/31/2024 13:24 Note Text: Chief Complaint Patient presents with: pneumonia, re evaluate HPI Madhuri Paulson is a 23 year old female who presents here today for Above Complaints. Madhuri is an established patient of Dr. Paco DO . Concerns today.. Per [facility]: I went to urgent care Monday night with a bad cough, wheezing, and shortness of breath. I was told I have pneumonia and was put on antibiotics and provided an inhaler. As of this morning I?m not seeing much improvement. Is there anyway I could get a steroid called in if that is something you think could help? Thank you so much. In office today, pt c/o ... Pt reports ongoing chest pressure, congestion, and severe cough. Reports SOB with little exertion. Has taken antibiotic x 2 days and inhaler every 6 hours without any relief. Asking about prednisone. No chest x-ray d/t x-ray machine was down on Monday. Also asking about extending antibiotic as no improvement so far and mother had similar symptoms and dx of pneumonia a few weeks ago and needed extended antibiotic regimen to fight it off. No recent known fevers but does report chills and night sweats through the night but has not checked with thermometer. No other concerns or complaints. Past medical history, appointments, medications, allergies reviewed. Previous Medical History PAST MEDICAL HISTORY Diagnosis Date Acute pain of right shoulder 01/21/2019 Chiari malformation type I (HCC) Lymphedema Menarche 09/2011 PMH - PAST MEDICAL HISTORY OF spina bifida PMH - PAST MEDICAL HISTORY OF 01/07/2004 color vision-normal PMH - PAST MEDICAL HISTORY OF bilateral club feet PMH - PAST MEDICAL HISTORY OF broken leg in 10/09 Previous Surgical History PAST SURGICAL HISTORY Procedure Laterality Date AFP, OPEN SPINA BIFIDA ([facility]) Spina Bifida surgery during infancy APPENDICONEOVESICOSTOMY 06/20/2016 APPENDICONEOVESICOSTOMY 12/2016 COLONOSCOPY FLX DX W/COLLJ SPEC WHEN PFRMD 10/24/2017 Colonoscopy KNEE RIGHT OP SURGERY 10/2012 right knee PAST SURGICAL HISTORY OF Bilateral Foot reconstruction x 4-5 times PAST SURGICAL HISTORY OF laser surgery on birthmark PAST SURGICAL HISTORY OF 10/2010 right knee surgery TONSILLECTOMY AND ADENOIDECTOMY Family History FAMILY HISTORY Problem Relation Age of Onset Uterine Cancer Mother Ovarian cancer Mother Anesthesia Problems Maternal Uncle Patient's mother states her brother coded during a procedure as a baby. Not actually diagnosed with anything specific and did not undergo further anesthesia as an adult. Hypertension Maternal Grandmother Breast Cancer Maternal Grandmother Heart Maternal Grandfather Renal Cell Cancer Maternal Grandfather Thyroid Cancer Maternal Grandfather Hypertension Paternal Grandmother Hypertension Paternal Grandfather Heart Paternal Grandfather Patient Allergies ALLERGIES Allergen Reactions Banana Unknown Per diagnosis Latex Unknown Per diagnosis Current Medications Current Outpatient Medications on File Prior to Visit Medication Sig doxycycline (VIBRA-TABS) 100 mg tablet Take 1 tablet by mouth two times a day for 5 days. albuterol HFA (PROVENTIL HFA, VENTOLIN HFA) 90 mcg/actuation inhaler Inhale 2 Puffs as instructed every 6 hours as needed for wheezing/shortness of breath. acetaminophen (TYLENOL) 500 mg tablet 2 tablets by ORAL/FEEDING TUBE route every 8 hours as needed for pain. Catheter (FEMALE CATHETER) 14 Fr misc 14 Chilean, 16 inch female straight tip intermittent catheter, to use q6 hrs prn urinary retention B.animalis,bifid,infantis,long (PROBIOTIC 4X ORAL) Take 1 capsule by mouth once daily. polyethylene glycol 3350 (MIRALAX) 17 gram/dose powder One quarter capful added to 800 cc of water and then flushed through the Banda stoma No current facility-administered medications on file prior to visit. Social History Social History Tobacco Use Smoking status: Never Smokeless tobacco: Never Tobacco comments: no smokers in home Vaping Use Vaping status: Never Used Substance Use Topics Alcohol use: Yes Comment: Not weekly Drug use: No REVIEW OF SYSTEMS: as above Reviewed relevant PMHx, PSHx, Social Hx, current medications and allergies. Review of Symptoms REVIEW OF SYSTEMS See HPI. EXAM: BP 104/64 (BP Site: Left Arm, BP Position: Sitting, BP Cuff Size: Large Adult) Pulse 104 Temp 36.9 ?C (98.4 ?F) Resp 16 Wt 86.2 kg (190 lb 0.6 oz) LMP 05/15/2024 (Exact Date) SpO2 98% BMI 32.62 kg/m? General Appearance: Well appearing, alert, in no acute distress, well-hydrated, well nourished.. Skin: Skin color, texture, turgor normal, no suspicious rashes or lesions. Head: Normocephalic, no masses, lesions, tenderness or abnormalities. Lungs: Positive findings: wheezing (more content not included)...[facility]11-29-2024 Telephone encounter Note* Telephone Encounter - Shannon Acharya MA - 05/31/2024 12:02 PM EST Turned into TE Shannon Acharya MA [facility]11-29-2024 Miscellaneous Notes* Telephone Encounter - Shannon Acharya MA - 05/31/2024 12:02 PM EST Turned into TE Shannon Acharya MA documented in this encounterBelle[facility]11-27-2024 NoteHNO ID: [id number] Author: GARFIELD MACK APRN.SIGNAL INSPECTOR Service: ? Author Type: Nurse Practitioner Type: Progress Notes Filed: 05/29/2024 18:10 Note Text: Subjective HPI Nontoxic-appearing female presents urgent care chief plaint cough wheezing chest congestion. Duration of symptoms 5 days. Associate symptoms listed above. States symptoms been staying the same or worsening. 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 OTC medications none recently. Most bothersome symptom today is cough. Is worse at night. Denies any fevers chest pain or hemoptysis. Denies chance of . Is not breast-feeding. Past medical history prescription medications allergies reviewed. .Patient presents with: Cough: Dry cough, SOB, wheezes, chest tightness, headache, increases at HS x 5 days PAST MEDICAL HISTORY Diagnosis Date Acute pain of right shoulder 01/21/2019 Chiari malformation type I (HCC) Lymphedema Menarche 09/2011 PMH - PAST MEDICAL HISTORY OF spina bifida PMH - PAST MEDICAL HISTORY OF 01/07/2004 color vision-normal PMH - PAST MEDICAL HISTORY OF bilateral club feet PMH - PAST MEDICAL HISTORY OF broken leg in 10/09 PAST SURGICAL HISTORY Procedure Laterality Date AFP, OPEN SPINA BIFIDA ([facility]) Spina Bifida surgery during infancy APPENDICONEOVESICOSTOMY 06/20/2016 APPENDICONEOVESICOSTOMY 12/2016 COLONOSCOPY FLX DX W/COLLJ SPEC WHEN PFRMD 10/24/2017 Colonoscopy KNEE RIGHT OP SURGERY 10/2012 right knee PAST SURGICAL HISTORY OF Bilateral Foot reconstruction x 4-5 times PAST SURGICAL HISTORY OF laser surgery on birthmark PAST SURGICAL HISTORY OF 10/2010 right knee surgery TONSILLECTOMY AND ADENOIDECTOMY ALLERGIES Banana and Latex MEDICATIONS acetaminophen (TYLENOL) 500 mg tablet 2 tablets by ORAL/FEEDING TUBE route every 8 hours as needed for pain. Catheter (FEMALE CATHETER) 14 Fr misc 14 [place]an, 16 inch female straight tip intermittent catheter, to use q6 hrs prn urinary retention B.animalis,bifid,infantis,long (PROBIOTIC 4X ORAL) Take 1 capsule by mouth once daily. polyethylene glycol 3350 (MIRALAX) 17 gram/dose powder One quarter capful added to 800 cc of water and then flushed through the Banda stoma FAMILY HISTORY Problem Relation Age of Onset Uterine Cancer Mother Ovarian cancer Mother Anesthesia Problems Maternal Uncle Patient's mother states her brother coded during a procedure as a baby. Not actually diagnosed with anything specific and did not undergo further anesthesia as an adult. Hypertension Maternal Grandmother Breast Cancer Maternal Grandmother Heart Maternal Grandfather Renal Cell Cancer Maternal Grandfather Thyroid Cancer Maternal Grandfather Hypertension Paternal Grandmother Hypertension Paternal Grandfather Heart Paternal Grandfather Social History Tobacco Use Smoking status: Never Smokeless tobacco: Never Tobacco comments: no smokers in home Vaping Use Vaping status: Never Used Substance Use Topics Alcohol use: Yes Comment: Not weekly Drug use: No BP 115/79 Pulse 98 Temp 37.1 ?C (98.7 ?F) Resp 22 Wt 88 kg (194 lb 0.1 oz) LMP 05/15/2024 (Exact Date) SpO2 97% BMI 33.30 kg/m? Review of Systems Constitutional: Positive for malaise/fatigue. Negative for chills and fever. HENT: Positive for congestion. Negative for ear discharge, ear pain, sinus pain and sore throat. Eyes: Negative for blurred vision, pain, discharge and redness. Respiratory: Positive for cough, sputum production and wheezing. Negative for hemoptysis, shortness of breath and stridor. Cardiovascular: Negative for chest pain. Gastrointestinal: Negative for abdominal pain, diarrhea, nausea and vomiting. Musculoskeletal: Positive for myalgias. Skin: Negative for itching and rash. Neurological: Negative for dizziness and headaches. Objective Physical Exam Constitutional: General: She is not in acute distress. Appearance: She is not diaphoretic. HENT: Head: Normocephalic. Jaw: No trismus, tenderness, swelling or pain on movement. Nose: Congestion present. Mouth/Throat: Mouth: Mucous membranes are moist. Pharynx: Oropharynx is clear. Uvula midline. No pharyngeal swelling, oropharyngeal exudate, posterior oropharyngeal erythema or uvula swelling. Eyes: Conjunctiva/sclera: Conjunctivae normal. Pupils: Pupils are equal, round, and reactive to light. Cardiovascular: Rate and Rhythm: Normal rate and regular rhythm. Heart sounds: Normal heart sounds. Pulmonary: Effort: Pulmonary effort is normal. No tachypnea, accessory muscle usage or respiratory distress. Breath sounds: No stridor. Wheezing and rhonchi present. No rales. Abdominal: General: There is no distension. Palpations: Abdomen is soft. Tenderness: There is no abdominal tenderness. There is no guarding or rebound. Musculoskeletal: Cervical back: Normal range of motion and neck supple. No edema, erythema, rigidity or tendern (more content not included)...[facility] 05-29-2024 History of Present illness Narrative* Garfield Mack APRN.SIGNAL INSPECTOR - 05/29/2024 5:53 PM EST Subjective HPI Nontoxic-appearing female presents urgent care chief plaint cough wheezing chest congestion. Duration of symptoms 5 days. Associate symptoms listed above. States symptoms been staying the same or worsening. 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 OTC medications none recently. Most bothersome symptom today is cough. Is worse at night. Denies any fevers chest pain or hemoptysis. Denies chance of . Is not breast-feeding. Past medical history prescription medications allergies reviewed. .Patient presents with: Cough: Dry cough, SOB, wheezes, chest tightness, headache, increases at HS x 5 days PAST MEDICAL HISTORY Diagnosis Date Acute pain of right shoulder 01/21/2019 Chiari malformation type I (HCC) Lymphedema Menarche 09/2011 PMH - PAST MEDICAL HISTORY OF spina bifida PMH - PAST MEDICAL HISTORY OF 01/07/2004 color vision-normal PMH - PAST MEDICAL HISTORY OF bilateral club feet PMH - PAST MEDICAL HISTORY OF broken leg in 10/09 PAST SURGICAL HISTORY Procedure Laterality Date AFP, OPEN SPINA BIFIDA ([facility]) Spina Bifida surgery during infancy APPENDICONEOVESICOSTOMY 06/20/2016 APPENDICONEOVESICOSTOMY 12/2016 COLONOSCOPY FLX DX W/COLLJ SPEC WHEN PFRMD 10/24/2017 Colonoscopy KNEE RIGHT OP SURGERY 10/2012 right knee PAST SURGICAL HISTORY OF Bilateral Foot reconstruction x 4-5 times PAST SURGICAL HISTORY OF laser surgery on birthmark PAST SURGICAL HISTORY OF 10/2010 right knee surgery TONSILLECTOMY & ADENOIDECTOMY <AGE 10 ALLERGIES Banana and Latex MEDICATIONS acetaminophen (TYLENOL) 500 mg tablet 2 tablets by ORAL/FEEDING TUBE route every 8 hours as needed for pain. Catheter (FEMALE CATHETER) 14 Fr misc 14 [place]an, 16 inch female straight tip intermittent catheter,to use q6 hrs prn urinary retention B.animalis,bifid,infantis,long (PROBIOTIC 4X ORAL) Take 1 capsule by mouth once daily. polyethylene glycol 3350 (MIRALAX) 17 gram/dose powder One quarter capful added to 800 cc of water and then flushed through the Banda stoma FAMILY HISTORY Problem Relation Age of Onset Uterine Cancer Mother Ovarian cancer Mother Anesthesia Problems Maternal Uncle Patient's mother states her brother coded during a procedure as a baby. Not actually diagnosed withanything specific and did not undergo further anesthesia as an adult. Hypertension Maternal Grandmother Breast Cancer Maternal Grandmother Heart Maternal Grandfather Renal Cell Cancer Maternal Grandfather Thyroid Cancer Maternal Grandfather Hypertension Paternal Grandmother Hypertension Paternal Grandfather Heart Paternal Grandfather Social History Tobacco Use Smoking status: Never Smokeless tobacco: Never Tobacco comments: no smokers in home Vaping Use Vaping status: Never Used Substance Use Topics Alcohol use: Yes Comment: Not weekly Drug use: No BP 115/79 Pulse 98 Temp 37.1 C (98.7 F) Resp 22 Wt 88 kg (194 lb 0.1 oz) LMP 05/15/2024 (Exact Date) SpO2 97% BMI 33.30 kg/m Review of Systems Constitutional: Positive for malaise/fatigue. Negative for chills and fever. HENT: Positive for congestion. Negative for ear discharge, ear pain, sinus pain and sore throat. Eyes: Negative for blurred vision, pain, discharge and redness. Respiratory: Positive for cough, sputum production and wheezing. Negative for hemoptysis, shortnessof breath and stridor. Cardiovascular: Negative for chest pain. Gastrointestinal: Negative for abdominal pain, diarrhea, nausea and vomiting. Musculoskeletal: Positive for myalgias. Skin: Negative for itching and rash. Neurological: Negative for dizziness and headaches. Objective Physical Exam Constitutional: General: She is not in acute distress. Appearance: She is not diaphoretic. HENT: Head: Normocephalic. Jaw: No trismus, tenderness, swelling or pain on movement. Nose: Congestion present. Mouth/Throat: Mouth: Mucous membranes are moist. Pharynx: Oropharynx is clear. Uvula midline. No pharyngeal swelling, oropharyngeal exudate, posterior oropharyngeal erythema or uvula swelling. Eyes: Conjunctiva/sclera: Conjunctivae normal. Pupils: Pupils are equal, round, and reactive to light. Cardiovascular: Rate and Rhythm: Normal rate and regular rhythm. Heart sounds: Normal heart sounds. Pulmonary: Effort: Pulmonary effort is normal. No tachypnea, accessory muscle usage or respiratory distress. Breath sounds: No stridor. Wheezing and rhonchi present. No rales. Abdominal: General: There is no distension. Palpations: Abdomen is soft. Tenderness: There is no abdominal tenderness. There is no guarding or rebound. Musculoskeletal: Cervical back: Normal range of motion and neck supple. No edema, erythema, rigidity or tenderness. No pain with movement. Normal range of motion. Lymphadenopathy: Cervical: No cervical adenopathy. Skin: General: Skin is warm and dry. Neurological: Mental Status: She is alert and oriented to person, place, and time. ASSESSMENT/PLAN: 1. Lower respiratory tract infection - ICD9: 519.8, ICD10: J22 Diagnosed with lower respiratory tract infection. Empirically treat with doxycycline. Patient was educated on supportive therapies. Patient will follow up with primary care provider 2 to 3 days. Patient was instructed to immediately proceed to emergency room for any new, worsening, orsymptoms lasting longer than anticipated. The patient's clinical presentation is otherwise unremarkable at this time. Based on exam and clinical finding, the patient is stable for discharge. Plan of care was discussed with patient. Patient verbalizes understanding and agrees to plan of care. This note was generated using Data[employer]te software. It may contain errors in wording, punctuation, or spelling. Garfield Mack APRN.FANNY documented [facility]24 NoteHNO ID: [id number] Author: JAMMIE GOODEN APRN.FANNY Service: ? Author Type: Nurse Practitioner Type: Progress Notes Filed: 04/26/2024 19:18 Note Text: This note was created using [employer]. Subjective Madhuri Paulson is a 23 year old female. 23 year old female with PMH neurogenic bladder (self caths), cauda equina, chiari malformation type I presents for complaints. Acute onset of symptoms X 2 days +burning +foul odor Denies vaginal bleeding Denies vaginal discharge Denies sexually active Denies abdominal pain Denies flank pain Denies fever or chills Brain fog per patient History of UTI's Secondary to self cathing Urine culture 01/08 reveals Pseudomonas and e.coli The history is provided by the patient. No project hire was used. UTI This is a new problem. The current episode started 2 days ago. The problem occurs every urination. The problem has been gradually worsening. The quality of the pain is described as burning. The pain is at a severity of 7/10. The pain is moderate. There has been no fever. She is Not sexually active. Associated symptoms include urgency. Pertinent negatives include no chills, no sweats, no nausea, no vomiting, no discharge, no frequency, no hematuria, no hesitancy, no possible and no flank pain. She has tried nothing for the symptoms. Her past medical history is significant for recurrent UTIs and catheterization. Her past medical history does not include kidney stones, single kidney, urological procedure or urinary stasis. PAST MEDICAL HISTORY Diagnosis Date Acute pain of right shoulder 01/21/2019 Chiari malformation type I (HCC) Lymphedema Menarche 09/2011 PMH - PAST MEDICAL HISTORY OF spina bifida PMH - PAST MEDICAL HISTORY OF 01/07/2004 color vision-normal PMH - PAST MEDICAL HISTORY OF bilateral club feet PMH - PAST MEDICAL HISTORY OF broken leg in 10/09 PAST SURGICAL HISTORY Procedure Laterality Date AFP, OPEN SPINA BIFIDA ([facility]) Spina Bifida surgery during infancy APPENDICONEOVESICOSTOMY 06/20/2016 APPENDICONEOVESICOSTOMY 12/2016 COLONOSCOPY FLX DX W/COLLJ SPEC WHEN PFRMD 10/24/2017 Colonoscopy KNEE RIGHT OP SURGERY 10/2012 right knee PAST SURGICAL HISTORY OF Bilateral Foot reconstruction x 4-5 times PAST SURGICAL HISTORY OF laser surgery on birthmark PAST SURGICAL HISTORY OF 10/2010 right knee surgery TONSILLECTOMY AND ADENOIDECTOMY ALLERGIES Banana and Latex MEDICATIONS acetaminophen (TYLENOL) 500 mg tablet 2 tablets by ORAL/FEEDING TUBE route every 8 hours as needed for pain. Catheter (FEMALE CATHETER) 14 Fr misc 14 [place]an, 16 inch female straight tip intermittent catheter, to use q6 hrs prn urinary retention B.animalis,bifid,infantis,long (PROBIOTIC 4X ORAL) Take 1 capsule by mouth once daily. polyethylene glycol 3350 (MIRALAX) 17 gram/dose powder One quarter capful added to 800 cc of water and then flushed through the Banda stoma nitrofurantoin monohydrate and macrocrystal (MACROBID) 100 mg capsule Take 1 capsule by mouth two times a day for 7 days. phenazopyridine (PYRIDIUM) 200 mg tablet Take 1 tablet by mouth three times a day as needed. FAMILY HISTORY Problem Relation Age of Onset Uterine Cancer Mother Ovarian cancer Mother Anesthesia Problems Maternal Uncle Patient's mother states her brother coded during a procedure as a baby. Not actually diagnosed with anything specific and did not undergo further anesthesia as an adult. Hypertension Maternal Grandmother Breast Cancer Maternal Grandmother Heart Maternal Grandfather Renal Cell Cancer Maternal Grandfather Thyroid Cancer Maternal Grandfather Hypertension Paternal Grandmother Hypertension Paternal Grandfather Heart Paternal Grandfather Social History Tobacco Use Smoking status: Never Smokeless tobacco: Never Tobacco comments: no smokers in home Vaping Use Vaping status: Never Used Substance Use Topics Alcohol use: Yes Comment: Not weekly Drug use: No Review of Systems Constitutional: Negative for chills. Eyes: Negative for pain, discharge and itching. Respiratory: Negative for apnea, cough, choking and chest tightness. Cardiovascular: Negative for chest pain, palpitations and leg swelling. Gastrointestinal: Negative for abdominal pain, nausea and vomiting. Genitourinary: Positive for dysuria and urgency. Negative for flank pain, frequency, hematuria and hesitancy. Musculoskeletal: Negative for arthralgias, back pain and gait problem. Skin: Negative for color change, pallor and rash. Allergic/Immunologic: Negative for environmental allergies, food allergies and immunocompromised state. Hematological: Negative for adenopathy. Does not bruise/bleed easily. Psychiatric/Behavioral: Negative for agitation and behavioral problems. Objective BP 122/81 Pulse 97 Temp 36.4 ?C (97.5 ?F) Resp 18 Wt 90.6 kg (199 lb 11.8 oz) LMP 04/18/2024 (Appro (more content not included)...[facility]10-25-2024 History of Present illness Narrative* Jammie Gooden APRN.SIGNAL INSPECTOR - 04/26/2024 6:50 PM EDT This note was created using NoteWriter. Subjective Madhuri Paulson is a 23 year old female. 23 year old female with PMH neurogenic bladder (self caths), cauda equina, chiari malformation typeI presents for complaints. Acute onset of symptoms X 2 days +burning +foul odor Denies vaginal bleeding Denies vaginal discharge Denies sexually active Denies abdominal pain Denies flank pain Denies fever or chills Brain fog per patient History of UTI's Secondary to self cathing Urine culture 01/08 reveals Pseudomonas and e.coli The history is provided by the patient. No project hire was used. UTI This is a new problem. The current episode started 2 days ago. The problem occurs every urination. The problem has been gradually worsening. The quality of the pain is described as burning. The pain is at a severity of 7/10. The pain is moderate. There has been no fever. She is Not sexually active.Associated symptoms include urgency. Pertinent negatives include no chills, no sweats, no nausea, no vomiting, no discharge, no frequency, no hematuria, no hesitancy, no possible and no flank pain. She has tried nothing for the symptoms. Her past medical history is significant for recurrent UTIs and catheterization. Her past medical history does not include kidney stones, single kidney, urological procedure or urinary stasis. PAST MEDICAL HISTORY Diagnosis Date Acute pain of right shoulder 01/21/2019 Chiari malformation type I (HCC) Lymphedema Menarche 09/2011 PMH - PAST MEDICAL HISTORY OF spina bifida PMH - PAST MEDICAL HISTORY OF 01/07/2004 color vision-normal PMH - PAST MEDICAL HISTORY OF bilateral club feet PMH - PAST MEDICAL HISTORY OF broken leg in 10/09 PAST SURGICAL HISTORY Procedure Laterality Date AFP, OPEN SPINA BIFIDA ([facility]) Spina Bifida surgery during infancy APPENDICONEOVESICOSTOMY 06/20/2016 APPENDICONEOVESICOSTOMY 12/2016 COLONOSCOPY FLX DX W/COLLJ SPEC WHEN PFRMD 10/24/2017 Colonoscopy KNEE RIGHT OP SURGERY 10/2012 right knee PAST SURGICAL HISTORY OF Bilateral Foot reconstruction x 4-5 times PAST SURGICAL HISTORY OF laser surgery on birthmark PAST SURGICAL HISTORY OF 10/2010 right knee surgery TONSILLECTOMY & ADENOIDECTOMY <AGE 10 ALLERGIES Banana and Latex MEDICATIONS acetaminophen (TYLENOL) 500 mg tablet 2 tablets by ORAL/FEEDING TUBE route every 8 hours as needed for pain. Catheter (FEMALE CATHETER) 14 Fr misc 14 [place]an, 16 inch female straight tip intermittent catheter,to use q6 hrs prn urinary retention B.animalis,bifid,infantis,long (PROBIOTIC 4X ORAL) Take 1 capsule by mouth once daily. polyethylene glycol 3350 (MIRALAX) 17 gram/dose powder One quarter capful added to 800 cc of water and then flushed through the Banda stoma nitrofurantoin monohydrate and macrocrystal (MACROBID) 100 mg capsule Take 1 capsule by mouth two times a day for 7 days. phenazopyridine (PYRIDIUM) 200 mg tablet Take 1 tablet by mouth three times a day as needed. FAMILY HISTORY Problem Relation Age of Onset Uterine Cancer Mother Ovarian cancer Mother Anesthesia Problems Maternal Uncle Patient's mother states her brother coded during a procedure as a baby. Not actually diagnosed withanything specific and did not undergo further anesthesia as an adult. Hypertension Maternal Grandmother Breast Cancer Maternal Grandmother Heart Maternal Grandfather Renal Cell Cancer Maternal Grandfather Thyroid Cancer Maternal Grandfather Hypertension Paternal Grandmother Hypertension Paternal Grandfather Heart Paternal Grandfather Social History Tobacco Use Smoking status: Never Smokeless tobacco: Never Tobacco comments: no smokers in home Vaping Use Vaping status: Never Used Substance Use Topics Alcohol use: Yes Comment: Not weekly Drug use: No Review of Systems Constitutional: Negative for chills. Eyes: Negative for pain, discharge and itching. Respiratory: Negative for apnea, cough, choking and chest tightness. Cardiovascular: Negative for chest pain, palpitations and leg swelling. Gastrointestinal: Negative for abdominal pain, nausea and vomiting. Genitourinary: Positive for dysuria and urgency. Negative for flank pain, frequency, hematuria and hesitancy. Musculoskeletal: Negative for arthralgias, back pain and gait problem. Skin: Negative for color change, pallor and rash. Allergic/Immunologic: Negative for environmental allergies, food allergies and immunocompromised state. Hematological: Negative for adenopathy. Does not bruise/bleed easily. Psychiatric/Behavioral: Negative for agitation and behavioral problems. Objective BP 122/81 Pulse 97 Temp 36.4 C (97.5 F) Resp 18 Wt 90.6 kg (199 lb 11.8 oz) LMP 04/18/2024 (Approximate) SpO2 98% BMI 34.28 kg/m Physical Exam Vitals and nursing note reviewed. Constitutional: General: She is not in acute distress. Appearance: Normal appearance. She is normal weight. She is not ill-appearing, toxic-appearing or diaphoretic. HENT: Head: Normocephalic and atraumatic. Right Ear: Ear canal and external ear normal. Left Ear: Ear canal and external ear normal. Nose: Nose normal. No congestion or rhinorrhea. Mouth/Throat: Mouth: Mucous membranes are moist. Pharynx: No oropharyngeal exudate or posterior oropharyngeal erythema. Eyes: General: Right eye: No discharge. Left eye: No discharge. Extraocular Movements: Extraocular movements intact. Conjunctiva/sclera: Conjunctivae normal. Pupils: Pupils are equal, round, and reactive to light. Cardiovascular: Rate and Rhythm: Normal rate and regular rhythm. Pulses: Normal pulses. Heart sounds: Normal heart sounds. No murmur heard. No friction rub. Pulmonary: Effort: Pulmonary effort is normal. No respiratory distress. Breath sounds: Normal breath sounds. No stridor. No wheezing, rhonchi or rales. Chest: Chest wall: No tenderness. Abdominal: General: Abdomen is flat. There is no distension. Palpations: Abdomen is soft. There is no mass. Tenderness: There is no abdominal tenderness. There is no right CVA tenderness, left CVA tenderness, guarding or rebound. Hernia: No hernia is present. Musculoskeletal: General: No swelling, tenderness, deformity or signs of injury. Normal range of motion. Cervical back: Normal range of motion and neck supple. No rigidity. Right lower leg: No edema. Left lower leg: No edema. Lymphadenopathy: Cervical: No cervical adenopathy. Skin: General: Skin is warm and dry. Capillary Refill: Capillary refill takes less than 2 seconds. Coloration: Skin is not jaundiced or pale. Findings: No bruising, erythema, lesion or rash. Neurological: General: No focal deficit present. Mental Status: She is alert and oriented to person, place, and time. Cranial Nerves: No cranial nerve deficit. Sensory: No sensory deficit. Motor: No weakness. Coordination: Coordination normal. Gait: Gait normal. Psychiatric: Mood and Affect: Mood normal. Behavior: Behavior normal. Thought Content: Thought content normal. Judgment: Judgment normal. Assessment and Plan ASSESSMENT/PLAN: 1. Burning with urination - ICD9: 788.1, ICD10: R30.0 acute - UA positive for gladys esterase, hematuria, proteinuria, and nitrates - Send urine for culture - Begin treatment with Macrobid 100 mg BID for 7 days - Patient education for prevention given Self caths Prior urine culture e.coli x 2 with susceptibility to Macrobid Patient aware if need to change ATB will - UA DIP, URINE (POC) - URINE CULTURE Jammie Gooden APRN.FANNY documented [facility] NoteHNO ID: [id number] Author: EARLINE TAY MD Service: ? Author Type: Physician Type: Progress Notes Filed: 03/30/2024 08:25 Note Text: Patient presents with: URI: Upper respiratory issues, pressure, stuffy nose, cough, mucus, sore throat, left ear pain x 1 week HPI: Feeling sick for 1 week. Positive symptoms: productive Cough, Sore throat, left Earache, Nasal Congestion, Rhinorrhea, Wheezing, Sinus pressure, Body Aches Negative symptoms: , Shortness of breath, Chest pain, Headache, OTC: Tylenol, vitamin C MEDICATIONS: Current Outpatient Medications Medication Sig acetaminophen (TYLENOL) 500 mg tablet 2 tablets by ORAL/FEEDING TUBE route every 8 hours as needed for pain. Catheter (FEMALE CATHETER) 14 Fr misc 14 [place]an, 16 inch female straight tip intermittent catheter, to use q6 hrs prn urinary retention B.animalis,bifid,infantis,long (PROBIOTIC 4X ORAL) Take 1 capsule by mouth once daily. polyethylene glycol 3350 (MIRALAX) 17 gram/dose powder One quarter capful added to 800 cc of water and then flushed through the Banda stoma No current facility-administered medications for this visit. ALLERGIES: ALLERGIES Allergen Reactions Banana Unknown Per diagnosis Latex Unknown Per diagnosis VITALS: BP 112/70 Pulse 100 Temp 36.7 ?C (98.1 ?F) Resp 20 Wt 88.6 kg (195 lb 5.2 oz) LMP 12/13/2023 (Exact Date) SpO2 97% BMI 33.53 kg/m? PHYSICAL EXAM: GEN: mildly ill appearing HEENT: PERRL, EOMI, conjunctiva clear Ears: canals clear. TMs without erythema, bulge, or effusion, TMJs non-tender Sinuses: non-tender frontal sinus, non-tender maxillary sinuses Throat: moist mucous membranes, mild erythema, no exudate Neck: supple, no thyromegaly, no lymphadenopathy HEART: regular rate and rhythm, no murmurs LUNGS: clear to auscultation, no wheezes or crackles, no increased WOB ASSESSMENT/PLAN: 1. URI, acute - ICD9: 465.9, ICD10: J06.9 (primary diagnosis) - suspect viral URI - Discussed supportive care treatment with rest, cold medicine, and analgesia. Follow up with worsening cough, worsening shortness of breath, increasing chest pain, or late onset fever. 2. Otalgia, left - ICD9: 388.70, ICD10: H92.02 Reassured of benign exam. Suspect barotrauma from coughing or eustachian tube dysfunction. Earline Tay, [facility]09-28-2024 History of Present illness Narrative* Earline Tay MD - 03/30/2024 8:15 AM EDT Patient presents with: URI: Upper respiratory issues, pressure, stuffy nose, cough, mucus, sore throat, left ear pain x 1 week HPI: Feeling sick for 1 week. Positive symptoms: productive Cough, Sore throat, left Earache, Nasal Congestion, Rhinorrhea, Wheezing, Sinus pressure, Body Aches Negative symptoms: , Shortness of breath, Chest pain, Headache, OTC: Tylenol, vitamin C MEDICATIONS: Current Outpatient Medications Medication Sig acetaminophen (TYLENOL) 500 mg tablet 2 tablets by ORAL/FEEDING TUBE route every 8 hours as needed for pain. Catheter (FEMALE CATHETER) 14 Fr misc 14 [place]an, 16 inch female straight tip intermittent catheter,to use q6 hrs prn urinary retention B.animalis,bifid,infantis,long (PROBIOTIC 4X ORAL) Take 1 capsule by mouth once daily. polyethylene glycol 3350 (MIRALAX) 17 gram/dose powder One quarter capful added to 800 cc of water and then flushed through the Banda stoma No current facility-administered medications for this visit. ALLERGIES: ALLERGIES Allergen Reactions Banana Unknown Per diagnosis Latex Unknown Per diagnosis VITALS: BP 112/70 Pulse 100 Temp 36.7 C (98.1 F) Resp 20 Wt 88.6 kg (195 lb 5.2 oz) LMP 12/13/2023 (Exact Date) SpO2 97% BMI 33.53 kg/m PHYSICAL EXAM: GEN: mildly ill appearing HEENT: PERRL, EOMI, conjunctiva clear Ears: canals clear. TMs without erythema, bulge, or effusion, TMJs non-tender Sinuses: non-tender frontal sinus, non-tender maxillary sinuses Throat: moist mucous membranes, mild erythema, no exudate Neck: supple, no thyromegaly, no lymphadenopathy HEART: regular rate and rhythm, no murmurs LUNGS: clear to auscultation, no wheezes or crackles, no increased WOB ASSESSMENT/PLAN: 1. URI, acute - ICD9: 465.9, ICD10: J06.9 (primary diagnosis) - suspect viral URI - Discussed supportive care treatment with rest, cold medicine, and analgesia. Follow up with worsening cough, worsening shortness of breath, increasing chest pain, or late onsetfever. 2. Otalgia, left - ICD9: 388.70, ICD10: H92.02 Reassured of benign exam. Suspect barotrauma from coughing or eustachian tube dysfunction. Earline Tay MD documented in this encounterB[facility]07-26-[facility]24 History of Present illness Narrative* Alecia Gallegos PA-C - 01/26/2024 7:55 AM EDT This note was created using [employer]. Subjective Madhuri Paulson is a 23 year old female seen today foe follow up after chiari decompression on 12/15/23. Pmhx of spina bifida, lymphedema on the R h/o tonsillectomy, banda stoma, knee surgeries, foot surgeries, neurogenic bowel and bladder. She is s/p detethering at . Pt states that she is starting to feel good after the surgery. She is stiff in the neck. She stopped taking the pain meds and the nausea meds as well. She is supposed to start work in a couple of weeks, but she is a bit leary about this. She doesn't feel that she will be ready for work until 12 weeks which we agree. Review of Systems Objective LMP 12/13/2023 (Exact Date) Physical Exam Assessment and Plan S/p chiari decompression on 12/15/23 H/o spina bifida with detethering at No shunt Ambulates, uses wheelchair for distances +neurogenic bowel and bladder Overall doing well after chiari Still some neck stiffness Off all meds now Planning to start new job after 12 weeks Encouraged increasing activities to pre op status between week 6 and 12 Recommended MRI cervical 6-8 mos post op. PT if neck stiffness does not resolve after 12 weeks post op F/u with me after MRI. Pt understood and agreed. I spent a total of 20 minutes on the date of the service which included preparing to see the patient, [id number] patient care, completing clinical documentation, obtaining and/or reviewing separately obtained history, counseling and educating the patient/family/caregiver, ordering medications, josie ts, or procedures, communicating with other HCPs (not separately reported), and care coordination (not separately reported). This virtual visit was conducted via [employer] which is a HIPAA compliant video platform. I received consent from the patient to perform the visit using this platform. The visit required patient-provider interaction for the medical decision making as documented herein. I have communicated my name and active licensure. The patient's identity and physical location wereverified at the time of this visit. Either the patient or their legal goodwill representative has been informed of the risks and benefits of -- and alternatives to -- treatment through a remote evaluation andconsents to proceed with the evaluation remotely. documented in this encounterB[facility]07-[facility]24 Telephone encounter Note * Telephone Encounter - Astrid Cordoba LPN - 01/25/2024 9:43 AM EDT Faxed order to [facility]. [facility] Miscellaneous Notes* Telephone Encounter - Astrid Cordoba LPN - 01/25/2024 9:43 AM EDT Faxed order to [facility]. * Telephone Encounter - Caitlin Curtis APRN.CNP - 01/25/2024 8:34 AM EDT Order placed. Please fax. Thank you, Caitlin Curtis APRN.SIGNAL INSPECTOR * Telephone Encounter - Juan Manuel Antonio DO - 01/24/2024 9:44 PM EDT Please load rx needed for me to send Juan Manuel Antonio DO * Telephone Encounter - Fernanda Stahl LPN - 01/24/2024 10:26 AM EDT Phoned [facility] and spoke with Jammie. She stated that they just need an order faxed over [facility] to get new AFO for patient. FAX # [phone] Fernanda Stahl LPN * Telephone Encounter - Juan Manuel Antonio DO - 01/24/2024 7:32 AM EDT Please call [facility] to see if request form for me to complete can be faxed to office as below Juan Manuel Antonio DO * Telephone Encounter - Alecia Guardado LPN - 01/22/2024 3:19 PM EDT Images from the original note were not included. [facility] Dear Dr. Antonio s Office, This is Mundo Paulson and I m reaching out to see if you could write a prescription for ankle foot orthotics (AFO) and fax it to [facility] in [place]. I outgrew my previous pair and would like to get new ones made if possible. Their fax number is [phone]. Thank you so much! If you have any q uestions feel free to call me. documented in this encounterBellevue Hospital07-25-2024 Telephone encounter Note * Telephone Encounter - Caitlin Curtis APRN.FANYN - 01/25/2024 8:34 AM EDT Order placed. Please fax. Thank you, Caitlin Curtis APRN.FANNY [facility] Telephone encounter Note* Telephone Encounter - Juan Manuel Antonio DO - 01/24/2024 9:44 PM EDT Please load rx needed for me to send Juan Manuel Antonio DO [facility]07-[facility] Telephone encounter Note* Telephone Encounter - Fernanda Stahl LPN - 01/24/2024 10:26 AM EDT [facility]oned [facility] and spoke with Jammie. She stated that they just need an order faxed over [facility] to get new AFO for patient. FAX # [phone] Fernanda Stahl LPN [facility]07-24-[facility] Telephone encounter Note* Telephone Encounter - Juan Manuel Antonio DO - 01/24/2024 7:32 AM EDT Please call [facility] to see if request form for me to complete can be faxed to office as below Juan Manuel Antonio DO [facility]07-[facility] Telephone encounter Note* Telephone Encounter - Alecia Guardado LPN - 01/22/2024 3:20 PM EDT See Telephone note. [facility] Work Phone: 1(883) 869-638707-22-2024 Miscellaneous Notes* Telephone Encounter - Alecia Guardado LPN - 01/22/2024 3:20 PM EDT See Telephone note. documented in this encounterBellevue Hospital07-22-2024 Telephone encounter Note * Telephone Encounter - Alecia Guardado LPN - 01/22/2024 3:19 PM EDT Images from the original note were not included. Madhuri Paulson [facility] My Chart Rx Pool Dear Dr. Antonio s Office, This is Mundo Paulson and I m reaching out to see if you could write a prescription for ankle foot orthotics (AFO) and fax it to [facility] in [place]. I outgrew my previous pair and would like to get new ones made if possible. Their fax number is [phone]. Thank you so much! If you have any q uestions feel free to call me. [facility] Work Phone: [phone]) 225-542407-12-2024 Telephone encounter Note* Telephone Encounter - Gayle Norman MA - 01/12/2024 1:59 PM EDT Pt was notified of the results. Pt verbalized understanding. Pt stated that she was feeling better. Gayle Norman MA [facility]07-12-[facility]24 Miscellaneous Notes* Telephone Encounter - Gayle Norman MA - 01/12/2024 1:59 PM EDT Pt was notified of the results. Pt verbalized understanding. Pt stated that she was feeling better. Gayle Norman MA * Telephone Encounter - Jammie Gooden APRN.CNP - 01/12/2024 1:55 PM EDT [employer] message sent to patient to call office. * Telephone Encounter - Jammie Gooden APRN.CNP - 01/12/2024 8:41 AM EDT Urine culture reveals bacterial growth Bactrim was prescribed. Pseudomonas aeruginosa -but sensitivity does not provide insight into Bactrim E.col-susceptible to Bactrim Attempted to call patient, Wanted to see if feeling bettter. IF feeling better would advise to finish Bactrim and f/u IF not improving significantly would consider adding on 2nd ATB Requested phone call back and to speak to a provider. Please connect with an Express Care Provider when patient returns call. documented in this encounterBellevue Hospital07-12-2024 Telephone encounter Note * Telephone Encounter - Jammie Gooden APRN.CNP - 01/12/2024 1:55 PM EDT Mychart message sent to patient to call office. [facility] Telephone encounter Note* Telephone Encounter - Jammie Gooden APRN.CNP - 01/12/2024 8:41 AM EDT Urine culture reveals bacterial growth Bactrim was prescribed. Pseudomonas aeruginosa -but sensitivity does not provide insight into Bactrim E.col-susceptible to Bactrim Attempted to call patient, Wanted to see if feeling bettter. IF feeling better would advise to finish Bactrim and f/u IF not improving significantly would consider adding on ATB Requested phone call back and to speak to a provider. Please connect with an Express Care Provider when patient returns call. [facility]07[facility] History of Present illness Narrative* Jammie Gooden APRN.CNP - 01/09/2024 2:42 PM EDT This note was created using ShopSpotriter. Subjective Madhuri Paulson is a 23 year old female. 23 year old female with PMH cauda equina, chiari malformation, spina bifida presents for possible UTI. Acute onset 3 days [employer] +burning +frequency She self caths 4 times a day related to her spina bifida Denies abdominal pain Denies back or flank pain Denies fever or chills Of note, patient had Suboccipital craniectomy, duraplasty, and arachnoidal dissection for chiari decompression with general endotracheal anesthesia on 12/15/23 I think that is where it came from She was treated for a UTI on 12/07/23 The history is provided by the patient. No project hire was used. UTI This is a new problem. Episode onset: 3 days ago. The problem occurs every urination. The problem has been gradually worsening. The quality of the pain is described as burning. The pain is mild. There has been no fever. Associated symptoms include frequency and urgency. Pertinent negatives include no chills, no sweats, no nausea, no vomiting, no discharge, no hematuria, no hesitancy, no possible and no flank pain. She has tried nothing for the symptoms. Her past medical history is significant for urological procedure, recurrent UTIs and catheterization. Her past medical history doesnot include kidney stones, single kidney or urinary stasis. PAST MEDICAL HISTORY Diagnosis Date Acute pain of right shoulder 01/21/2019 Chiari malformation type I (HCC) Lymphedema Menarche 09/2011 PMH - PAST MEDICAL HISTORY OF spina bifida PMH - PAST MEDICAL HISTORY OF 01/07/2004 color vision-normal PMH - PAST MEDICAL HISTORY OF bilateral club feet PMH - PAST MEDICAL HISTORY OF broken leg in 10/09 PAST SURGICAL HISTORY Procedure Laterality Date AFP, OPEN SPINA BIFIDA ([facility]) Spina Bifida surgery during infancy APPENDICONEOVESICOSTOMY 06/20/2016 APPENDICONEOVESICOSTOMY 12/2016 COLONOSCOPY FLX DX W/COLLJ SPEC WHEN PFRMD 10/24/2017 Colonoscopy KNEE RIGHT OP SURGERY 10/2012 right knee PAST SURGICAL HISTORY OF Bilateral Foot reconstruction x 4-5 times PAST SURGICAL HISTORY OF laser surgery on birthmark PAST SURGICAL HISTORY OF 10/2010 right knee surgery TONSILLECTOMY & ADENOIDECTOMY <AGE 12 ALLERGIES Banana and Latex MEDICATIONS sulfamethoxazole-trimethoprim (BACTRIM DS) 800-160 mg per tablet Take 1 tablet by mouth two times aday for 7 days. ondansetron (ZOFRAN) 4 mg tablet Take 1 tablet by mouth every 8 hours as needed for nausea/vomiting. senna-docusate (SENNA-S) 8.6-50 mg per tablet Take 1-2 tablets by mouth two times a day. methocarbamol (ROBAXIN) 750 mg tablet Take 1 tablet by mouth every 8 hours as needed for muscle spasms acetaminophen (TYLENOL) 500 mg tablet 2 tablets by ORAL/FEEDING TUBE route every 8 hours as needed for pain. Catheter (FEMALE CATHETER) 14 Fr misc 14 Chilean, 16 inch female straight tip intermittent catheter,to use q6 hrs prn urinary retention B.animalis,bifid,infantis,long (PROBIOTIC 4X ORAL) Take 1 capsule by mouth once daily. polyethylene glycol 3350 (MIRALAX) 17 gram/dose powder One quarter capful added to 800 cc of water and then flushed through the Banda stoma FAMILY HISTORY Problem Relation Age of Onset Uterine Cancer Mother Ovarian cancer Mother Anesthesia Problems Maternal Uncle Patient's mother states her brother coded during a procedure as a baby. Not actually diagnosed withanything specific and did not undergo further anesthesia as an adult. Hypertension Maternal Grandmother Breast Cancer Maternal Grandmother Heart Maternal Grandfather Renal Cell Cancer Maternal Grandfather Thyroid Cancer Maternal Grandfather Hypertension Paternal Grandmother Hypertension Paternal Grandfather Heart Paternal Grandfather Social History Tobacco Use Smoking status: Never Smokeless tobacco: Never Tobacco comments: no smokers in home Vaping Use Vaping Use: Never used Substance Use Topics Alcohol use: Yes Comment: Not weekly Drug use: No Review of Systems Constitutional: Negative for chills, fatigue and fever. Eyes: Negative for pain, discharge, redness and itching. Respiratory: Negative for apnea, choking and chest tightness. Cardiovascular: Negative for chest pain, palpitations and leg swelling. Gastrointestinal: Negative for abdominal pain, diarrhea, nausea and vomiting. Genitourinary: Positive for dysuria, frequency and urgency. Negative for flank pain, hematuria and hesitancy. Musculoskeletal: Negative for back pain. Skin: Negative for color change, pallor, rash and wound. Allergic/Immunologic: Negative for environmental allergies, food allergies and immunocompromised state. Neurological: Negative for dizziness, facial asymmetry, light-headedness, numbness and headaches. Hematological: Negative for adenopathy. Does not bruise/bleed easily. Psychiatric/Behavioral: Negative for agitation and behavioral problems. Objective BP 113/80 Pulse 92 Temp 37 C (98.6 F) Resp 18 Wt 89 kg (196 lb 3.4 oz) LMP 12/13/2023 (Exact Date) SpO2 97% BMI 33.68 kg/m Physical Exam Vitals and nursing note reviewed. Constitutional: General: She is not in acute distress. Appearance: Normal appearance. She is normal weight. She is not ill-appearing, toxic-appearing or diaphoretic. HENT: Head: Normocephalic and atraumatic. Right Ear: Ear canal and external ear normal. Left Ear: Ear canal and external ear normal. Nose: Nose normal. No congestion or rhinorrhea. Mouth/Throat: Mouth: Mucous membranes are moist. Pharynx: No oropharyngeal exudate or posterior oropharyngeal erythema. Eyes: General: Right eye: No discharge. Left eye: No discharge. Extraocular Movements: Extraocular movements intact. Conjunctiva/sclera: Conjunctivae normal. Pupils: Pupils are equal, round, and reactive to light. Cardiovascular: Rate and Rhythm: Normal rate and regular rhythm. Pulses: Normal pulses. Heart sounds: Normal heart sounds. No murmur heard. No friction rub. Pulmonary: Effort: Pulmonary effort is normal. No respiratory distress. Breath sounds: Normal breath sounds. No stridor. No wheezing, rhonchi or rales. Chest: Chest wall: No tenderness. Abdominal: General: Abdomen is flat. There is no distension. Palpations: Abdomen is soft. There is no mass. Tenderness: There is no abdominal tenderness. There is no right CVA tenderness, left CVA tenderness, guarding or rebound. Hernia: No hernia is present. Musculoskeletal: General: No swelling, tenderness, deformity or signs of injury. Normal range of motion. Cervical back: Normal range of motion and neck supple. No rigidity. Right lower leg: No edema. Left lower leg: No edema. Lymphadenopathy: Cervical: No cervical adenopathy. Skin: General: Skin is warm and dry. Capillary Refill: Capillary refill takes less than 2 seconds. Coloration: Skin is not jaundiced or pale. Findings: No bruising, erythema, lesion or rash. Neurological: General: No focal deficit present. Mental Status: She is alert and oriented to person, place, and time. Cranial Nerves: No cranial nerve deficit. Sensory: No sensory deficit. Motor: No weakness. Coordination: Coordination normal. Gait: Gait normal. Psychiatric: Mood and Affect: Mood normal. Behavior: Behavior normal. Thought Content: Thought content normal. Judgment: Judgment normal. Assessment and Plan ASSESSMENT/PLAN: 1. History of urinary self-catheterization - ICD9: V49.89, ICD10: Z78.9 (primary diagnosis) Secondary to spina bifida - UA DIP, URINE (POC) - URINE CULTURE 2. Dysuria - ICD9: 788.1, ICD10: R30.0 Complicated Recurrent from UTI in December vs. Related to catherizations - UA positive for gladys esterase, hematuria, and proteinuria - Send urine for culture - Begin treatment with Bactrim DS BID for 7 days - Patient education for prevention given - URINE CULTURE-pending Follow up with PCP Jammie Gooden APRN.SIGNAL INSPECTOR documented in this encounterBellevue Hospital07-01-2024 Telephone encounter Note * Telephone Encounter - Gyant - 01/01/2024 7:20 PM EDT Record ID: [id number] Patient name: Madhuri Paulson Date: January 01, 2024 - 02:20 Administered by: PRANAV Protocol: -> Great! Now we are in a secure chat environment. Protecting your health information is important to us. Ok, let's get started. Please verify your name and date of . Please click on the button with your first name. -> Madhuri Got it. On to the next question... Select the button with your last name. -> Thomas Got it, thank you. Please enter your date of in MM/DD/YYYY format:(e.g., 07/21/1971 for Jul 21, 1971) -> 2000 Thank you for verifying your information. I'd like to ask you a few questions about how your recovery is going. Have there been any new or worsening symptoms since your last response? -> No I'm glad to hear that. Thank you for your time and for allowing us to care for you. Please be sure to reach out to your provider for any further symptoms or needs. Please rate your satisfaction with the care and support you have received from us since you have been home: (scale 1-5; 1 worst and 5 best) -> 5 Please tell me what you liked best about your experience: -> Great! Now we are in a secure chat environment. Protecting your health information is important to us. Ok, let's get started. Please verify your name and date of . Please click on the button with your first name. -> Madhuri Got it. On to the next question... Select the button with your last name. -> Thomas Got it, thank you. Please enter your date of in MM/DD/YYYY format:(e.g., 07/21/1971 for Jul 21, 1971) -> 2000 Thank you for verifying your information. I'd like to ask you a few questions about how your recovery is going. Have there been any new or worsening symptoms since your last response? -> No I'm glad to hear that. Thank you for your time and for allowing us to care for you. Please be sure to reach out to your provider for any further symptoms or needs. Please rate your satisfaction with the care and support you have received from us since you have been home: (scale 1-5; 1 worst and 5 best) -> 5 Please tell me what you liked best about your experience: -> n/a Please tell me what you liked least about your experience: -> n/a [facility]-01-[facility] Miscellaneous Notes* Telephone Encounter - Pranav - 01/01/2024 7:20 PM EDT Record ID: [id number] Patient name: Madhuri Paulson Date: January 01, 2024 - 02:20 Administered by: PRANAV Protocol: -> Great! Now we are in a secure chat environment. Protecting your health information is important to us. Ok, let's get started. Please verify your name and date of . Please click on the button with your first name. -> Madhuri Got it. On to the next question... Select the button with your last name. -> Thomas Got it, thank you. Please enter your date of in MM/DD/YYYY format:(e.g., 07/21/1971 for Jul 21, 1971) -> 2000 Thank you for verifying your information. I'd like to ask you a few questions about how your recovery is going. Have there been any new or worsening symptoms since your last response? -> No I'm glad to hear that. Thank you for your time and for allowing us to care for you. Please be sure to reach out to your provider for any further symptoms or needs. Please rate your satisfaction with the care and support you have received from us since you have been home: (scale 1-5; 1 worst and 5 best) -> 5 Please tell me what you liked best about your experience: -> Great! Now we are in a secure chat environment. Protecting your health information is important to us. Ok, let's get started. Please verify your name and date of . Please click on the button with your first name. -> Madhuri Got it. On to the next question... Select the button with your last name. -> Thomas Got it, thank you. Please enter your date of in MM/DD/YYYY format:(e.g., 07/21/1971 for Jul 21, 1971) -> 2000 Thank you for verifying your information. I'd like to ask you a few questions about how your recovery is going. Have there been any new or worsening symptoms since your last response? -> No I'm glad to hear that. Thank you for your time and for allowing us to care for you. Please be sure to reach out to your provider for any further symptoms or needs. Please rate your satisfaction with the care and support you have received from us since you have been home: (scale 1-5; 1 worst and 5 best) -> 5 Please tell me what you liked best about your experience: -> n/a Please tell me what you liked least about your experience: -> n/a documented in this encounterBellevue Hospital06-30-2024 Telephone encounter Note * Telephone Encounter - Raquel Sheffield RN - 12/31/2023 10:11 AM EDT Patient calling regarding chills. Conferenced to [facility] c d reactor operatorMica, to speak with provider sterilization technician for Dr. Story. Neuro Surgeon. GO TO THE EMERGENCY ROOM OR CALL 911 IF: * You develop any new symptoms * Your condition worsens * You are concerned or anxious about your condition for any other reason. [facility]-30-[facility] Miscellaneous Notes* Telephone Encounter - Raquel Sheffield RN - 12/31/2023 10:11 AM EDT Patient calling regarding chills. Conferenced to [facility] c d reactor operatorMica, to speak with provider sterilization technician for Dr. Story. Neuro Surgeon. GO TO THE EMERGENCY ROOM OR CALL 911 IF: * You develop any new symptoms * Your condition worsens * You are concerned or anxious about your condition for any other reason. documented in this encounterBellevue Hospital06-28-2024 History of Present illness Narrative* Jill Munson APRN.CNP - 12/29/2023 1:54 PM EDT Per visit with PCP Dr. Antonio on 12/27/2023: She recently underwent a craniectomy subocipital with cervical laminectomy for decompression and dural grafting for enlarging Chiari malformation and herniation present. She is not about day 12 post operative and she has done well. Her nausea and vomting and headaches have resolved. She is supposedto have her suture removed on Monday or Monday. She is asking to have this done locally. Currently: She is here for sutures post surgery to be removed. The posterior scalp was assessed and sutures were removed as ordered. No dressing required. Patientinstructed on wound care and verbalized understanding. Will send a picture to her surgeon per provider request. Jill Munson APRN.FANNY documented in this encounterBellevue Hospital06-26-2024 History of Present illness Narrative* Juan Manuel Antonio, - 12/27/2023 8:50 PM EDT CC: Madhuri Paulson is a 23 year old female who presents to the office to establish care. HPI: She recently underwent a craniectomy subocipital with cervical laminectomy for decompression and dural grafting for enlarging Chiari malformation and herniation present. She is not about day 12 post operative and she has done well. Her nausea and vomting and headaches have resolved. She is supposedto have her suture removed on Monday or Monday. She is asking to have this done locally. 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 Starting in January No fevers or any other concerns post op She is willing to have fasting labs drawn PAST MEDICAL HISTORY Diagnosis Date Acute pain of right shoulder 01/21/2019 Chiari malformation type I (HCC) Lymphedema Menarche 09/2011 PMH - PAST MEDICAL HISTORY OF spina bifida PMH - PAST MEDICAL HISTORY OF 01/07/2004 color vision-normal PMH - PAST MEDICAL HISTORY OF bilateral club feet PMH - PAST MEDICAL HISTORY OF broken leg in 10/09 PAST SURGICAL HISTORY Procedure Laterality Date AFP, OPEN SPINA BIFIDA ([facility]) Spina Bifida surgery during infancy APPENDICONEOVESICOSTOMY 06/20/2016 APPENDICONEOVESICOSTOMY 12/2016 COLONOSCOPY FLX DX W/COLLJ SPEC WHEN PFRMD 10/24/2017 Colonoscopy KNEE RIGHT OP SURGERY 10/2012 right knee PAST SURGICAL HISTORY OF Bilateral Foot reconstruction x 4-5 times PAST SURGICAL HISTORY OF laser surgery on birthmark PAST SURGICAL HISTORY OF 10/2010 right knee surgery TONSILLECTOMY & ADENOIDECTOMY <AGE 10 Social History: Social History Tobacco Use Smoking status: Never Smokeless tobacco: Never Tobacco comments: no smokers in home Vaping Use Vaping Use: Never used Substance Use Topics Alcohol use: Yes Comment: Not weekly Drug use: No FAMILY HISTORY Problem Relation Age of Onset Uterine Cancer Mother Ovarian cancer Mother Anesthesia Problems Maternal Uncle Patient's mother states her brother coded during a procedure as a baby. Not actually diagnosed withanything specific and did not undergo further anesthesia as an adult. Hypertension Maternal Grandmother Breast Cancer Maternal Grandmother Heart Maternal Grandfather Renal Cell Cancer Maternal Grandfather Thyroid Cancer Maternal Grandfather Hypertension Paternal Grandmother Hypertension Paternal Grandfather Heart Paternal Grandfather Current Outpatient prescriptions: ondansetron (ZOFRAN) 4 mg tablet Take 1 tablet by mouth every 8 hours as needed for nausea/vomiting. senna-docusate (SENNA-S) 8.6-50 mg per tablet Take 1-2 tablets by mouth two times a day. methocarbamol (ROBAXIN) 750 mg tablet Take 1 tablet by mouth every 8 hours as needed for muscle spasms acetaminophen (TYLENOL) 500 mg tablet 2 tablets by ORAL/FEEDING TUBE route every 8 hours as needed for pain. Catheter (FEMALE CATHETER) 14 Fr misc 14 Chilean, 16 inch female straight tip intermittent catheter,to use q6 hrs prn urinary retention B.animalis,bifid,infantis,long (PROBIOTIC 4X ORAL) Take 1 capsule by mouth once daily. polyethylene glycol 3350 (MIRALAX) 17 gram/dose powder One quarter capful added to 800 cc of water and then flushed through the Banda stoma Allergies: ALLERGIES Allergen Reactions Banana Unknown Per diagnosis Latex Unknown Per diagnosis ROS: See HPI PE: 12/27/23 1855 BP: 120/70 Pulse: 80 Resp: 16 Temp: 36.1 C (97 F) TempSrc: Left Tympanic Weight: 88.5 kg (195 lb) Height: 162.6 cm (5' 4) Gen: A&O, NAD, non-toxic appearing, Pleasant, cooperative HEENT: NT/AC, wearing glasses, PERRLA, EOMs intact b/l, nares clear and patent b/l, pharynx withouterythema, exudate or lesions. Uvula midline. EACs without erythema or debris. TMs pearly petty with intact landmarks b/l. Neck: supple, No cervical LAD, no thyromegaly, no carotid bruits CV: RRR, normal S1 and S2, no murmurs, no gallops, no rubs, Pulses 2+ and symmetric in UE and LE b/l Lungs: normal respiratory effort, CTA b/l, no wheezing or rhonchi or rales Abd: soft, NT, ND, +BS, no hepatosplenomegaly MS: FROM all 4 extremities Neuro: CN II-XII intact b/l Skin: warm, dry, intact, suture present in posterior midline superior neck and occipital area and inferior posterior scalp without signs of infection No edema, normal pulses Hypermobility of her DIP joints of hands Gait impaired ASSESSMENT/PLAN: 1. Routine physical examination - ICD9: V70.0, ICD10: Z00.00 (primary diagnosis) - Counseled on healthy diet and regular exercise - Discussed need and benefit for weight loss. BMI 33.47 kg/(m^2) - COMPREHENSIVE METABOLIC PANEL - COMPLETE BLOOD COUNT AND DIFFERENTIAL - HEMOGLOBIN A1C - LIPID PANEL BASIC - THYROID STIMULATING HORMONE - T4 FREE/FREE THYROXINE - T3, FREE 2. Spina bifida of lumbar region without hydrocephalus (HCC) - ICD9: 741.93, ICD10: Q05.7 3. Cauda equina syndrome with neurogenic bladder (HCC) - ICD9: 344.61, ICD10: G83.4 She has ability to catherize 4. Chiari malformation type I (HCC) - ICD9: 348.4, ICD10: G93.5 S/p surgical correction 12 days ago, she will follow up with neurosurgeon. Okay to remove suture onFriday per patient and surgeon- can do this locally in office 5. S/P brain surgery - ICD9: V45.89, ICD10: Z98.890 See above 6. Abnormality of gait - ICD9: 781.2, ICD10: R26.9 See above Congenital spinal bifida Juan Manuel Antonio DO To ER if develops chest pain, shortness of breath, or severe worsening of symptoms. Discussed risks, benefits, alternatives, and potential side effects of medications. Patient expressed understanding and agreed with the plan. Juan Manuel Antonio DO [address] [place] [address] documented in [facility]06[facility] Telephone encounter Note * Telephone Encounter - Pranav - 12/25/2023 1:22 PM EDT Record ID: [id number] Patient name: Madhuri Paulson Date: December 25, 2023 - 08:22 Administered by: PRANAV Protocol: -> Great! Now we are in a secure chat environment. Protecting your health information is important to us. Ok, let's get started. Please verify your name and date of . Please click on the button with your first name. -> Madhuri Got it. On to the next question... Select the button with your last name. -> Thomas Got it, thank you. Please enter your date of in MM/DD/YYYY format:(e.g., 07/21/1971 for Jul 21, 1971) -> 2000 Thank you for verifying your information. I'd like to ask you a few questions about how your recovery is going. Have you experienced any new or worsening symptoms since returning home? -> No I'm glad to hear that. Have you had a hospital follow-up appointment yet since your discharge? -> No [facility]06-24[facility] Miscellaneous Notes* Telephone Encounter - Pranav - 12/25/2023 1:22 PM EDT Record ID: [id number] Patient name: Madhuri Paulson Date: December 25, 2023 - 08:22 Administered by: PRANAV Protocol: -> Great! Now we are in a secure chat environment. Protecting your health information is important to us. Ok, let's get started. Please verify your name and date of . Please click on the button with your first name. -> Madhuri Got it. On to the next question... Select the button with your last name. -> Thomas Got it, thank you. Please enter your date of in MM/DD/YYYY format:(e.g., 07/21/1971 for Jul 21, 1971) -> 2000 Thank you for verifying your information. I'd like to ask you a few questions about how your recovery is going. Have you experienced any new or worsening symptoms since returning home? -> No I'm glad to hear that. Have you had a hospital follow-up appointment yet since your discharge? -> No documented in this encounterBelle[facility]06-19-[facility]24 Telephone encounter Note * Telephone Encounter - Pranav - 12/20/2023 1:03 PM EDT Record ID: [id number] Patient name: Madhuri Paulson Date: December 20, 2023 - 08:03 Administered by: PRANAV Protocol: -> Great! Now we are in a secure chat environment. Protecting your health information is important to us. Ok, let's get started. Please verify your name and date of . Please click on the button with your first name. -> Madhuri Got it. On to the next question... Select the button with your last name. -> Thomas Got it, thank you. Please enter your date of in MM/DD/YYYY format:(e.g., 07/21/1971 for Jul 21, 1971) -> 2000 Thank you for verifying your information. I'd like to ask you a few questions about how your recovery is going. Since leaving the hospital, do you have any new or worsening symptoms? -> No I'm glad to hear that. We encourage a follow-up appointment with a physician to oversee your recovery. It seems that you already have a follow-up appointment for JUAN MANUEL ANTONIO on December 27, 2023. Are you able to attend? -> Yes [facility] Miscellaneous Notes* Telephone Encounter - Pranav - 12/20/2023 1:03 PM EDT Record ID: [id number] Patient name: Madhuri Paulson Date: December 20, 2023 - 08:03 Administered by: PRANAV Protocol: -> Great! Now we are in a secure chat environment. Protecting your health information is important to us. Ok, let's get started. Please verify your name and date of . Please click on the button with your first name. -> Madhuri Got it. On to the next question... Select the button with your last name. -> Thomas Got it, thank you. Please enter your date of in MM/DD/YYYY format:(e.g., 07/21/1971 for Jul 21, 1971) -> 2000 Thank you for verifying your information. I'd like to ask you a few questions about how your recovery is going. Since leaving the hospital, do you have any new or worsening symptoms? -> No I'm glad to hear that. We encourage a follow-up appointment with a physician to oversee your recovery. It seems that you already have a follow-up appointment for JUAN MANUEL ANTONIO on December 27, 2023. Are you able to attend? -> Yes documented in this encounterBelle[facility]06-19-2024 Telephone encounter Note * Telephone Encounter - Shannon Acharya MA - 12/20/2023 11:33 AM EDT Faxed Shannon Acharya MA [facility]06-19-[facility] Miscellaneous Notes* Telephone Encounter - Shannon Acharya MA - 12/20/2023 11:33 AM EDT Faxed Shannon Acharya MA * Telephone Encounter - Jill Mnuson APRN.CNP - 12/19/2023 6:25 PM EDT Rx signed and in the outbox in our office. Jill Munson APRN.SIGNAL INSPECTOR documented in this encounterBellevue Hospital06-18-2024 Telephone encounter Note * Telephone Encounter - Jill Munson APRN.CNP - 12/19/2023 6:25 PM EDT Rx signed and in the outbox in our office. Jill Munosn APRN.SIGNAL INSPECTOR [facility]06-12-[facility] Telephone encounter Note* Telephone Encounter - Betsey Garcia - 12/13/2023 10:22 AM EDT Please close out note and sign encounter. [facility] Work Phone: 1(459) 374-621306-12-2024 Miscellaneous Notes* Telephone Encounter - Richard cMmillan Betsey M - 12/13/2023 10:22 AM EDT Please close out note and sign encounter. * Telephone Encounter - Astrid Cordoba LPN - 12/08/2023 8:55 AM EDT Spoke with pt gave information provided. Pt voices understanding. * Telephone Encounter - Caitlin Curtis APRN.FANNY - 12/08/2023 8:47 AM EDT Yes, ok to take. Thank you, Caitlin Curtis APRN.SIGNAL INSPECTOR * Telephone Encounter - Jammie Alas - 12/07/2023 9:01 AM EDT General Call Caller : Pt Contact Reason for Call : Pt called and stated she went to urgent care. She was giving some antibiotic and wants to know, if its ok take before surgery. Patient requesting return call ? Yes * Telephone Encounter - Juan Manuel Antonio DO - 12/06/2023 10:39 PM EDT Please have Kohort send me paperwork to have ready for her upcoming appt to sign Juan Manuel Antonio DO * Telephone Encounter - Ashlyn Adams RN - 12/05/2023 4:17 PM EDT Pt reports she did mean for it to go to Dr Antonio. Pt states she had them made in the past through and orthopedic surgeon at the [facility]. She states she needs new ones as the old ones no longer fit herlegs as they have changed. I let her know I would send it through to provider, but that she may have to go through an orthopedic surgeon to get them done again. * Telephone Encounter - Marguerite Tolliver RN - 12/05/2023 11:47 AM EDT Left msg for pt to return call. Current PCP listed is Dr. Whitehead but pt's last appt with him was 06/29/20. Pt has an appt with Dr. Antonio to establish care (per Dr. Antonio) on 12/27/23. Please askpt why she is requesting Dr. Nixon to order these braces for her. Did she mean Dr. Antonio? Haspt had these in the past and who ordered them at that time? * Telephone Encounter - Leena Cao MA - 12/04/2023 10:34 AM EDT Patient is establishing with Paco 12/26. Has never seen Radha Nixon. * Telephone Encounter - Betsey Garcia - 12/04/2023 9:51 AM EDT Madhuri is calling Radha Nixon MD today to request Orders for AFO braces. Patient would like it sent to [facility] Patient has been identified by name and birthdate. Duration of symptoms: N/A Person calling: self Call patient at: on cell [phone] (home) [phone] (cell) Was an appointment scheduled: Yes: Date/Time: 12-27-23 Closing statement: Betsey Casey Richard Pss documented in this encounterBellevue Hospital06-10-2024 Telephone encounter Note * Telephone Encounter - Judy Anderson RN - 12/11/2023 10:43 AM EDT Christie, On hold 20 mins. with medical records office to request EKG wave form. Message left last week [employer] voice mail with no response. Are you able to re-fax the med rec req document back to [facility] specifically for the EKG waveform this way they do not fax back 98 pages and no waveform? Please advise. Nathan, Judy HINTON, RN, [facility] Resource nurse [facility]06-10-2024 Miscellaneous Notes* Telephone Encounter - Judy Anderson RN - 12/11/2023 10:43 AM EDT Christie, On hold 20 mins. with medical records office to request EKG wave form. Message left last week [employer] voice mail with no response. Are you able to re-fax the med rec req document back to [facility] specifically for the EKG waveform this way they do not fax back 98 pages and no waveform? Please advise. Thanks, Judy HINTON, RN, [facility] Resource nurse * Telephone Encounter - Fernanda Oropeza RN - 12/08/2023 2:06 PM EDT Called - [facility] medical records re request for ekg. Multiple records sent, but no ekg. Left detailed message. * Telephone Encounter - Ventura Pziano RN - 12/07/2023 12:38 PM EDT Called patient via phone. Patient states that she has developed a UTI and was prescribed an antibiotic by her PCP. She states that it will have completed the antibiotic prior to surgery (7 day course) Dr. Story notified. * Telephone Encounter - Jammie Alas - 12/07/2023 9:09 AM EDT General Call Caller : Pt Contact Reason for Call : Pt has questions regards antibiotic.Before surgery. Patient requesting return call ? Yes documented in this encounterBellevue Hospital06-08-2024 Telephone encounter Note * Telephone Encounter - Shaye Wilson - 12/09/2023 2:19 PM EDT Patient has seen results on mychart and has not answered or returned phone calls. Shaye Wilson [facility]06-08-2024 Miscellaneous Notes* Telephone Encounter - Shaye Wilson - 12/09/2023 2:19 PM EDT Patient has seen results on mychart and has not answered or returned phone calls. Shaye Wilson * Telephone Encounter - Shaye Wilson - 12/09/2023 8:06 AM EDT Left message for patient to call back and ask to speak to a triage nurse. Shaye Wilson * Telephone Encounter - Iliana Simms APRN.FANNY - 12/09/2023 8:00 AM EDT Please call patient and make sure symptoms are improving. Patient is on the correct antibiotic but if symptoms or not improving patient needs to follow-up with primary care. documented in this encounterBellevue Hospital06-08-2024 Telephone encounter Note * Telephone Encounter - Shaye Wilson - 12/09/2023 8:06 AM EDT Left message for patient to call back and ask to speak to a triage nurse. Shaye Wilson [facility]06-08-20[facility] Telephone encounter Note* Telephone Encounter - Iliana Simms APRN.CNP - 12/09/2023 8:00 AM EDT Please call patient and make sure symptoms are improving. Patient is on the correct antibiotic but if symptoms or not improving patient needs to follow-up with primary care. [facility] Work Phone: 1(676) 168-168106-07-2024 Telephone encounter Note* Telephone Encounter - Fernanda Oropeza RN - 12/08/2023 2:06 PM EDT Called [facility] medical records re request for ekg. Multiple records sent, but no ekg. Left detailed message. [facility] History of Present illness Narrative* Ventura Piazno RN - 12/08/2023 1:53 PM EDT Called patient via phone. No answer- voicemail unidentified. Left a message requesting she return our call to review instructions. Patient returned our call. Neuro SPINE CARE COORDINATION PRE-OP VISIT Spoke with patient for pre op education. Given both written and verbal instructions re : Skin prep,wound care, pain management and post op restrictions. Provided to patient: [facility] Surgery Guide, skin prep supplies, Spine Surgery Pre/post op education packet. Yes Reviewed with patient to report to desk J19 for surgery ? Yes. Reviewed with the patient to call [phone] the day before to get surgery report time? Yes. Patient aware eat nothing after midnight prior to surgery, clear liquids only until 2 hours before report time. Yes. Patient aware surgery will be INPATIENT. Discussed care post discharge : Self care. Does patient have transportation to and from surgery ? Yes. Falls Education provided ? Yes Nasal swab obtained ? Yes. Patient instructed in mupirocin treatment : Prescription called to [facility] in [place], [place]. Questions answered and patient voice(s) understanding via teach back. Physical Therapy : NO Additional Comments : Post -op Support family. Ventura Pizano RN documented in this encounterBellevue Hospital06-07-2024 Telephone encounter Note * Telephone Encounter - Astrid Cordoba LPN - 12/08/2023 8:55 AM EDT Spoke with pt gave information provided. Pt voices understanding. [facility] Telephone encounter Note* Telephone Encounter - Caitlin Curtis APRN.CNP - 12/08/2023 8:47 AM EDT Yes, ok to take. Thank you, Caitlin Curtis APRN.SIGNAL INSPECTOR [facility] Work Phone: 1(950) 484-470706-06-2024 Telephone encounter Note* Telephone Encounter - Ventura Pizano RN - 12/07/2023 12:38 PM EDT Called patient via phone. Patient states that she has developed a UTI and was prescribed an antibiotic by her PCP. She states that it will have completed the antibiotic prior to surgery (7 day course) Dr. Story notified. [facility]06-06-[facility] Telephone encounter Note* Telephone Encounter - Jammie Alas - 12/07/2023 9:09 AM EDT General Call Caller : Pt Contact Reason for Call : Pt has questions regards antibiotic.Before surgery. Patient requesting return call ? Yes [facility] Telephone encounter Note* Telephone Encounter - Evette Jammie Soriano - 12/07/2023 9:01 AM EDT General Call Caller : Pt Contact Reason for Call : Pt called and stated she went to urgent care. She was giving some antibiotic and wants to know, if its ok take before surgery. Patient requesting return call ? Yes [facility]06-[facility] History of Present illness Narrative* Garfield Mack APRN.SIGNAL INSPECTOR - 12/07/2023 8:16 AM EDT Subjective HPI Nontoxic-appearing 22-year-old female with past medical history of spina bifida who self caths presents to urgent care chief complaint possible UTI. Duration of symptom 1 day. Associated symptoms urinary frequency and burning. States history of UTIs has not had 1 for quite some time. Presents todayfor evaluation. No OTC medication use. Overall feels well. Denies any fevers nausea vomiting abdominal pain back pain vaginal discharge. Is not sexually active. Denies chance of . Is not breast-feeding. Past medical history prescription medications allergies reviewed. .Patient presents with: Urinary Problem: Frequency, burning x 1 day PAST MEDICAL HISTORY Diagnosis Date Acute pain of right shoulder 01/21/2019 Chiari malformation type I (HCC) Lymphedema Menarche 09/2011 PMH - PAST MEDICAL HISTORY OF spina bifida PMH - PAST MEDICAL HISTORY OF 01/07/2004 color vision-normal PMH - PAST MEDICAL HISTORY OF bilateral club feet PMH - PAST MEDICAL HISTORY OF broken leg in 10/09 PAST SURGICAL HISTORY Procedure Laterality Date AFP, OPEN SPINA BIFIDA ([facility]) Spina Bifida surgery during infancy APPENDICONEOVESICOSTOMY 06/20/2016 APPENDICONEOVESICOSTOMY 12/2016 COLONOSCOPY FLX DX W/COLLJ SPEC WHEN PFRMD 10/24/2017 Colonoscopy KNEE RIGHT OP SURGERY 10/2012 right knee PAST SURGICAL HISTORY OF Bilateral Foot reconstruction x 4-5 times PAST SURGICAL HISTORY OF laser surgery on birthmark PAST SURGICAL HISTORY OF 10/2010 right knee surgery TONSILLECTOMY & ADENOIDECTOMY <AGE 12 ALLERGIES Banana and Latex MEDICATIONS [START ON 12/10/2023] mupirocin (BACTROBAN) 2 % ointment Apply to affected area three times a day for5 days. Starting 5 days prior to surgery, apply 1/2 inch ointment with a cotton swab (Q-tip) in each nostril twice daily for five(5) days. Patient should start on December 10, 2023. B.animalis,bifid,infantis,long (PROBIOTIC 4X ORAL) Take 1 capsule by mouth once daily. polyethylene glycol 3350 (MIRALAX) 17 gram/dose powder One quarter capful added to 800 cc of water and then flushed through the Banda stoma FAMILY HISTORY Problem Relation Age of Onset Uterine Cancer Mother Ovarian cancer Mother Anesthesia Problems Maternal Uncle Patient's mother states her brother coded during a procedure as a baby. Not actually diagnosed withanything specific and did not undergo further anesthesia as an adult. Hypertension Maternal Grandmother Breast Cancer Maternal Grandmother Heart Maternal Grandfather Renal Cell Cancer Maternal Grandfather Thyroid Cancer Maternal Grandfather Hypertension Paternal Grandmother Hypertension Paternal Grandfather Heart Paternal Grandfather Social History Tobacco Use Smoking status: Never Smokeless tobacco: Never Tobacco comments: no smokers in home Vaping Use Vaping Use: Never used Substance Use Topics Alcohol use: Yes Comment: Not weekly Drug use: No BP 110/76 Pulse 93 Temp 36.2 C (97.2 F) Resp 20 Wt 88.3 kg (194 lb 10.7 oz) LMP 11/11/2021 SpO2 97% BMI 33.41 kg/m Review of Systems Constitutional: Negative for chills, fever and malaise/fatigue. HENT: Negative for congestion, ear discharge, ear pain, sinus pain and sore throat. Eyes: Negative for blurred vision, pain, discharge and redness. Respiratory: Negative for cough, hemoptysis, sputum production, shortness of breath, wheezing and stridor. Cardiovascular: Negative for chest pain. Gastrointestinal: Negative for abdominal pain, diarrhea, nausea and vomiting. Genitourinary: Positive for dysuria, frequency and urgency. Negative for flank pain and hematuria. Musculoskeletal: Negative for myalgias. Skin: Negative for itching and rash. Neurological: Negative for dizziness and headaches. Objective Physical Exam Vitals and nursing note reviewed. Constitutional: General: She is not in acute distress. Appearance: She is not toxic-appearing or diaphoretic. HENT: Head: Normocephalic. Jaw: No trismus. Right Ear: Hearing normal. No decreased hearing noted. No drainage, swelling or tenderness. Tympanic membrane is not perforated, erythematous or bulging. Left Ear: Hearing normal. No decreased hearing noted. No drainage, swelling or tenderness. Tympanicmembrane is not perforated, erythematous or bulging. Nose: Nose normal. Mouth/Throat: Pharynx: Uvula midline. No uvula swelling. Tonsils: No tonsillar abscesses. Eyes: Pupils: Pupils are equal, round, and reactive to light. Cardiovascular: Rate and Rhythm: Normal rate and regular rhythm. Pulses: Normal pulses. Pulmonary: Effort: Pulmonary effort is normal. No respiratory distress. Breath sounds: Normal breath sounds. Chest: Chest wall: No tenderness. Abdominal: General: Bowel sounds are normal. There is no distension. Palpations: Abdomen is soft. Abdomen is not rigid. Tenderness: There is no abdominal tenderness. There is no right CVA tenderness, left CVA tenderness, guarding or rebound. Negative signs include Morgan's sign and McBurney's sign. Musculoskeletal: General: No tenderness. Cervical back: Normal range of motion. Lymphadenopathy: Head: Right side of head: No submental, submandibular, tonsillar, preauricular, posterior auricular or occipital adenopathy. Left side of head: No submental, submandibular, tonsillar, preauricular, posterior auricular or occipital adenopathy. Cervical: Right cervical: No superficial or posterior cervical adenopathy. Left cervical: No superficial or posterior cervical adenopathy. Skin: General: Skin is warm and dry. Findings: No rash. Neurological: General: No focal deficit present. Mental Status: She is alert and oriented to person, place, and time. ASSESSMENT/PLAN: 1. Urinary frequency - ICD9: 788.41, ICD10: R35.0 - UA DIP, URINE (POC) - URINE CULTURE Urine positive for trace protein. On review of previous urine dips multiple have been unremarkable that grew group B strep in the past. At this time patient will be started on Keflex. Treat accordingto culture results. Patient was educated on supportive therapies. Patient will follow up with primary care provider as needed. Patient was instructed to immediately proceed to emergency room for any new, worsening, or symptoms lasting longer than anticipated. The patient's clinical presentation is otherwise unremarkable at this time. Based on exam and clinical finding, the patient is stable for discharge. Plan of care was discussed with patient. Patient verbalizes understanding and agrees to plan of care. This note was generated using [employer] software. It may contain errors in wording, punctuation, or spelling. Garfield Mack APRN.FANNY documented in this encounterBellevue Hospital06-05-2024 Telephone encounter Note * Telephone Encounter - Juan Manuel Antonio DO - 12/06/2023 10:39 PM EDT Please have Kohort send me paperwork to have ready for her upcoming appt to sign Juan Manuel Antonio DO [facility] Work Phone: 1(990) 797-637406-04-2024 Telephone encounter Note* Telephone Encounter - Ashlyn Adams RN - 12/05/2023 4:17 PM EDT Pt reports she did mean for it to go to Dr Antonio. Pt states she had them made in the past through and orthopedic surgeon at the [facility]. She states she needs new ones as the old ones no longer fit herlegs as they have changed. I let her know I would send it through to provider, but that she may have to go through an orthopedic surgeon to get them done again. [facility]24 Telephone encounter Note* Telephone Encounter - Ashlyn Adams RN - 12/05/2023 4:13 PM EDT Pt called and is notified of providers results and instructions. Pt voices understanding. Ashlyn Adams RN [facility]06-04-2024 Miscellaneous Notes* Telephone Encounter - Ashlyn Adams RN - 12/05/2023 4:13 PM EDT Pt called and is notified of providers results and instructions. Pt voices understanding. Ashlyn Adams RN [facility] Tele[facility] encounter Note * Telephone Encounter - Marguerite Tolliver RN - 12/05/2023 11:47 AM EDT Left msg for pt to return call. Current PCP listed is Dr. Whitehead but pt's last appt with him was 06/29/20. Pt has an appt with Dr. Antonio to establish care (per Dr. Antonio) on 12/27/23. Please askpt why she is requesting Dr. Nixon to order these braces for her. Did she mean Dr. Antonio? Haspt had these in the past and who ordered them at that time? [facility]06-03[facility]24 History of Present illness Narrative* Judy Link MRI Tech - 12/04/2023 4:00 PM EDT Radiology Service Progress Note PATIENT NAME: Madhuri Paulson DATE OF SERVICE: December 04, 2023 TIME: 3:40 PM PATIENT IDENTITY VERIFICATION COMPLETED USING TWO (2) IDENTIFIERS: Name and Date of confirmedby patient verbally. FALL SCREENING: Has the patient had 2 falls in the last year or 1 fall with injury or currently using an Ambulatory Assistive Device (Walker, Cane, Wheelchair, Crutches, etc.)? No PATIENT GENDER DATA: Female. status: : No status: NO. PATIENT RELEVANT IMPLANT DATA REVIEWED: Yes PATIENT PRESENTS WITH AN IMPLANTABLE OR ATTACHED ARCHITECTURAL ASSOCIATE: No RADIOLOGY DEPARTMENT: MR; Exam(s) Completed: Spine: Cervical spine and cine PERIPHERAL IV DATA: Not applicable SIGNED BY: Judy Link beauty therapist December 04, 2023 3:40 PM documented in this encounterBelle[facility] History and physical note * Christie Khan APRN.SIGNAL INSPECTOR - 12/04/2023 1:40 PM EDT HISTORY AND PHYSICAL EXAMINATION SERVICE DATE: 12/04/2023 SERVICE TIME: 1:36 PM PRIMARY CARE PHYSICIAN: Graham Whitehead MD Assessment Patient has the following medical conditions which may affect isael-operative course: Chiari malformation type I (HCC) Assessment: + Bad headaches and bilateral hand numbness when sleeping. Previously monitoring on MRIs recently worsening. Scheduled for surgical intervention. Spina bifida of lumbar region (HCC) Assessment: s/p surgical intervention during childhood. Patient ambulatory but uses wheel chair forlong distance. Reports no feeling in bilateral feet and back of thighs. 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 Lymphedema Assessment: Patient reports lymphedema of right side (arm and leg). Unknown etiology per mom. Thoracic outlet syndrome Assessment: Thoracic outlet syndrome of right arm. Patient does note swelling and numbness/tinglingpresent but unchanged. 2018 PVR: Positive for arterial compression with thoracic outlet maneuvers in the right arm. There is over a 30 mmHg drop in pressure with the arm at 120 degree position; however, waveform remains normal. NEUROGENIC BLADDER Assessment: Patient self catheterizes 4 x day. Denies recent UTIs. Neurogenic bowel Assessment: Patient has stoma present. Takes Probiotic daily and Miralax flush. No current abdominal pain. Obese Assessment: Body mass index is 33.47 kg/m . Lux Activity Status Index: METS: Climb a flight of stairs or walk up a hill (5.50 METs) DASI Score: 5.5 Patient denies any chest pain or undue shortness of breath with the above physical activity. Patient is partially dependent. Clinical Frailty Scale: 3. Well, with treated comorbid disease STOP-Bang Score: Denies snoring loudly Denies feeling tired, fatigued, or sleepy during the daytime Has not been observed to stop breathing or choking/gasping during sleep Denies having high blood pressure BMI less than or equal to 35 kg/m^2 Patient 50 years old or younger Does not have a large neck Non-male patient STOP-Bang Score: 0 ANESTHESIA FINDINGS: Intubation History: No history of difficult intubation. No abnormal airway history Significant Anesthesia Considerations: none Airway History: No history of difficult airway No abnormal airway history I - PHYSICAL EVALUATION AIRWAY Patient intubated: No. Tracheostomy tube not present Mallampati: II. TM distance: >3 FB. Neck ROM: full ROM without neurological symptoms. Mouth opening: adequate. Short neck: no. Thick neck: no Suarez present: no Lip Bite Test: I Microretrognathia/Micronagthia/Recessed Chin: No DENTAL Dental findings: teeth intact. II - ANESTHESIA PLAN Beta Sara Monitoring Plan Post Procedure Analgesic Plan Prepared for Surgery: optimally prepared for surgery, pending [see comment]. Labs Requested EKG 08/13/23 - [facility] CONSULTS: Patient does not require consults for optimization at this time Planned Anesthetic: anesthesia choice The Following Tests/Procedures Have Been Initiated: Orders Placed This Encounter CMP Standing Status: Future Number of Occurrences: 1 Standing Expiration Date: 03/04/2024 Complete Blood Count and Differential Standing Status: Future Number of Occurrences: 1 Standing Expiration Date: 03/04/2024 T&S - 30 Day Standing Status: Future Number of Occurrences: 1 Standing Expiration Date: 03/04/2024 [place] Standing Status: Future Standing Expiration Date: 03/04/2024 Order Specific Question: Did Blood Bank direct you to place this order: Answer: No - Presurgical Workflow B.animalis,bifid,infantis,long (PROBIOTIC 4X ORAL) Sig: Take 1 capsule by mouth once daily. REASON FOR VISIT: Madhuri Paulson is a 22 year old female who is scheduled for CRANIECTOMY SUBOCCIPITAL W/ CERV LAMI FOR DECOMPRESS W/ DURAL GRAFT at the request of Dr. Nieves Story for consultation. My final recommendation will be communicated back to the requesting physician by way ofshared medical record or letter. Subjective The patient has the following: ACTIVE PROBLEM LIST Spina Bifida of Lumbar Region (Hcc) Cauda Equina Syndrome With Neurogenic Bladder (Hcc) Muscle Weakness (Generalized) Patellar Malalignment Syndrome Constipation Abnormality of Gait Thoracic Outlet Syndrome Scapulothoracic Bursitis of Right Shoulder Chiari Malformation Type I (Hcc) Lymphedema Neurogenic Bowel Obese COVID-19 Immunization Status Overdue - Covid-19 Vaccine ( season) Overdue since 03/03/2023 12/15/2020 Imm Admin: COVID-19 original vaccine, age 12+ yr, monovalent (PFIZER- BIONTECH - PURPLE TOP) 11/24/2020 Imm Admin: COVID-19 original vaccine, age 12+ yr, monovalent (PFIZER- BIONTECH - PURPLE TOP) CHIEF COMPLAINT: Anesthesia Consult HPI: 22 year old female presents with chiari malformation. Patient presents with mother at today's visit. Patient states she has been having bad headaches and bilateral hand numbness for the past couple of years. She reports symptoms have stayed stable but imaging has shown worsening of the chiari.Patient has spina bifida. REVIEW OF SYSTEMS: General: No weight loss, malaise or fevers. Neurological: Positive for: headaches and impaired sensorium. Negative for: multiple sclerosis, Parkinson's disease, seizures, TIA and strokes. Respiratory: No history of current cough or dyspnea, or pneumonia in the past 6 weeks. No history of respiratory/pulmonary symptoms or problems. Cardiovascular: No history of HTN requiring medication, no history of angina, CHF, MD, cardiac surgery or stents. Denies rest pain, gangrene or revascularization/amputation for PVD. No history of cardiovascular symptoms or problems. GI: No history of GI symptoms or problems. No history of esophageal varices, recent ascites, or ETOH greater than 2 drinks per day. : Positive for: self catheterization. Negative for: hematuria, nephrolithiasis, renal failure and urinary tract infection. INTERNATIONAL MARKETING SPECIALIST: Negative for abnormal vaginal bleeding, abnormal vaginal discharge. Endocrine: No history of diabetes. Has not taken steroids within the past 30 days. No history of endocrinological symptoms or problems. Hematology: No history of bleeding or clotting disorder. Patient is not taking anti-coagulation or platelet medications. No history of hematological symptoms or problems. Oncology: No history of CA metastasis, chemo within 30 days, or radiotherapy within 90 days. No history of oncological symptoms or problems. Psych: No history of psychiatric symptoms or problems. Musculoskeletal: Positive for: swelling (Lymphedema of right arm and leg). Negative for: back pain and joint pain. Skin: Negative for lesions, rash and itching. PAST MEDICAL HISTORY Diagnosis Date Acute pain of right shoulder 01/21/2019 Chiari malformation type I (HCC) Lymphedema Menarche 09/2011 PMH - PAST MEDICAL HISTORY OF spina bifida PMH - PAST MEDICAL HISTORY OF 01/07/2004 color vision-normal PMH - PAST MEDICAL HISTORY OF bilateral club feet PMH - PAST MEDICAL HISTORY OF broken leg in 10/09 PAST SURGICAL HISTORY Procedure Laterality Date AFP, OPEN SPINA BIFIDA ([facility]) Spina Bifida surgery during infancy APPENDICONEOVESICOSTOMY 06/20/2016 APPENDICONEOVESICOSTOMY 12/2016 COLONOSCOPY FLX DX W/COLLJ SPEC WHEN PFRMD 10/24/2017 Colonoscopy KNEE RIGHT OP SURGERY 10/2012 right knee PAST SURGICAL HISTORY OF Bilateral Foot reconstruction x 4-5 times PAST SURGICAL HISTORY OF laser surgery on birthmark PAST SURGICAL HISTORY OF 10/2010 right knee surgery TONSILLECTOMY & ADENOIDECTOMY FAMILY HISTORY Problem Relation Age of Onset Uterine Cancer Mother Ovarian cancer Mother Anesthesia Problems Maternal Uncle Patient's mother states her brother coded during a procedure as a baby. Not actually diagnosed withanything specific and did not undergo further anesthesia as an adult. Hypertension Maternal Grandmother Breast Cancer Maternal Grandmother Heart Maternal Grandfather Renal Cell Cancer Maternal Grandfather Thyroid Cancer Maternal Grandfather Hypertension Paternal Grandmother Hypertension Paternal Grandfather Heart Paternal Grandfather Social History Tobacco Use Smoking status: Never Smokeless tobacco: Never Tobacco comments: no smokers in home Vaping Use Vaping Use: Never used Substance Use Topics Alcohol use: Yes Comment: Not weekly Drug use: No Prior to Admission medications as of 12/04/23 1350 Medication Sig Last Dose Taking B.animalis,bifid,infantis,long (PROBIOTIC 4X ORAL) Take 1 capsule by mouth once daily. Taking Yes polyethylene glycol 3350 (MIRALAX) 17 gram/dose powder One quarter capful added to 800 cc of water and then flushed through the Banda stoma Taking Yes No medication comments found. ALLERGIES Allergen Reactions Banana Unknown Per diagnosis Latex Unknown Per diagnosis Objective PHYSICAL EXAM: General: alert and oriented and obese. Pertinent negatives noted - not distressed. Skin: normal color, no rash or lesions. HEENT: pupils equal round and pupils reactive to light. Pertinent negatives noted - no carotid bruit. Cardiovascular: regular rate and rhythm, normal S1 and S2, no rub, murmurs, or gallop. Respiratory: normal breath sounds, no wheezes or crackles. No chest wall deformity or tenderness. Abdomen: Pertinent negatives noted - no hernia and no mass. Extremities: no deformity, no edema or tenderness, no joint swelling or clubbing. Neurological: Normal cognition, in wheel chair during exam. PAIN ASSESSMENT: Pain Pain Level: 8 Pain Location: Head Description: Sharp Duration Amount of Time: 3 Duration Units: Years Frequency: Intermittent Intervention/Comfort measure: (sleep) VITALS: BP 117/77 Pulse 88 Temp (Src) 98 (Temporal) Ht 5' 4 (1.63m) Wt 195 lb (88.5kg) SpO2 96% LMP 11/11/2021 BMI 33.46 kg/(m^2). Diagnostic tests reviewed for today's visit: Lab Value Units Date High Low HB No results within date range. HCT No results within date range. WBC No results within date range. PLT No results within date range. NA No results within date range. K No results within date range. GLUC No results within date range. BUN No results within date range. CREAT No results within date range. PTSEC No results within date range. INR No results within date range. APTT No results within date range. ALT No results within date range. AST No results within date range. TBILI No results within date range. TSH No results within date range. Lab Value Units Date High Low HCGQT No results within date range. UHCG No results within date range. HCG, BODY* No results within date range. Lab Value Units Date High Low ABORHD No results within date range. ABSCREEN No results within date range. HBA1C, [place] (%) Date Value 03/14/2011 5.2 No results found for this or any previous visit (from the past 8760 hour(s)). No results found for this or any previous visit (from the past 07678 hour(s)). Instructions Given to Patient: Instructions located in the after visit summary. Patient given verbal and written preop instructions and voices comprehension and compliance. SIGNATURE: Christie Khan APRN.CNP PATIENT NAME: Madhuri Paulson DATE: December 04, 2023 TIME: 1:14 PM PAGER/CONTACT #: [facility]06-03-[facility]24 History and physical note* Christie Khan APRN.CNP - 12/04/2023 1:40 PM EDT HISTORY AND PHYSICAL EXAMINATION SERVICE DATE: 12/04/2023 SERVICE TIME: 1:36 PM PRIMARY CARE PHYSICIAN: Graham Whitehead MD Assessment Patient has the following medical conditions which may affect isael-operative course: Chiari malformation type I (HCC) Assessment: + Bad headaches and bilateral hand numbness when sleeping. Previously monitoring on MRIs recently worsening. Scheduled for surgical intervention. Spina bifida of lumbar region (HCC) Assessment: s/p surgical intervention during childhood. Patient ambulatory but uses wheel chair forlong distance. Reports no feeling in bilateral feet and back of thighs. 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 Lymphedema Assessment: Patient reports lymphedema of right side (arm and leg). Unknown etiology per mom. Thoracic outlet syndrome Assessment: Thoracic outlet syndrome of right arm. Patient does note swelling and numbness/tinglingpresent but unchanged. 2018 PVR: Positive for arterial compression with thoracic outlet maneuvers in the right arm. There is over a 30 mmHg drop in pressure with the arm at 120 degree position; however, waveform remains normal. NEUROGENIC BLADDER Assessment: Patient self catheterizes 4 x day. Denies recent UTIs. Neurogenic bowel Assessment: Patient has stoma present. Takes Probiotic daily and Miralax flush. No current abdominal pain. Obese Assessment: Body mass index is 33.47 kg/m . Lux Activity Status Index: METS: Climb a flight of stairs or walk up a hill (5.50 METs) DASI Score: 5.5 Patient denies any chest pain or undue shortness of breath with the above physical activity. Patient is partially dependent. Clinical Frailty Scale: 3. Well, with treated comorbid disease STOP-Bang Score: Denies snoring loudly Denies feeling tired, fatigued, or sleepy during the daytime Has not been observed to stop breathing or choking/gasping during sleep Denies having high blood pressure BMI less than or equal to 35 kg/m^2 Patient 50 years old or younger Does not have a large neck Non-male patient STOP-Bang Score: 0 ANESTHESIA FINDINGS: Intubation History: No history of difficult intubation. No abnormal airway history Significant Anesthesia Considerations: none Airway History: No history of difficult airway No abnormal airway history I - PHYSICAL EVALUATION AIRWAY Patient intubated: No. Tracheostomy tube not present Mallampati: II. TM distance: >3 FB. Neck ROM: full ROM without neurological symptoms. Mouth opening: adequate. Short neck: no. Thick neck: no Suarez present: no Lip Bite Test: I Microretrognathia/Micronagthia/Recessed Chin: No DENTAL Dental findings: teeth intact. II - ANESTHESIA PLAN Beta Sara Monitoring Plan Post Procedure Analgesic Plan Prepared for Surgery: optimally prepared for surgery, pending [see comment]. Labs Requested EKG 08/13/23 - [facility] CONSULTS: Patient does not require consults for optimization at this time Planned Anesthetic: anesthesia choice The Following Tests/Procedures Have Been Initiated: Orders Placed This Encounter CMP Standing Status: Future Number of Occurrences: 1 Standing Expiration Date: 03/04/2024 Complete Blood Count and Differential Standing Status: Future Number of Occurrences: 1 Standing Expiration Date: 03/04/2024 T&S - 30 Day Standing Status: Future Number of Occurrences: 1 Standing Expiration Date: 03/04/2024 [place] Standing Status: Future Standing Expiration Date: 03/04/2024 Order Specific Question: Did Blood Bank direct you to place this order: Answer: No - Presurgical Workflow B.animalis,bifid,infantis,long (PROBIOTIC 4X ORAL) Sig: Take 1 capsule by mouth once daily. REASON FOR VISIT: Madhuri Paulson is a 22 year old female who is scheduled for CRANIECTOMY SUBOCCIPITAL W/ CERV LAMI FOR DECOMPRESS W/ DURAL GRAFT at the request of Dr. Nieves Story for consultation. My final recommendation will be communicated back to the requesting physician by way ofshared medical record or letter. Subjective The patient has the following: ACTIVE PROBLEM LIST Spina Bifida of Lumbar Region (Hcc) Cauda Equina Syndrome With Neurogenic Bladder (Hcc) Muscle Weakness (Generalized) Patellar Malalignment Syndrome Constipation Abnormality of Gait Thoracic Outlet Syndrome Scapulothoracic Bursitis of Right Shoulder Chiari Malformation Type I (Hcc) Lymphedema Neurogenic Bowel Obese COVID-19 Immunization Status Overdue - Covid-19 Vaccine () Overdue since 03/03/2023 12/15/2020 Imm Admin: COVID-19 original vaccine, age 12+ yr, monovalent (PFIZER- BIONTECH - PURPLE TOP) 11/24/2020 Imm Admin: COVID-19 original vaccine, age 12+ yr, monovalent (PFIZER- BIONTECH - PURPLE TOP) CHIEF COMPLAINT: Anesthesia Consult HPI: 22 year old female presents with chiari malformation. Patient presents with mother at today's visit. Patient states she has been having bad headaches and bilateral hand numbness for the past couple of years. She reports symptoms have stayed stable but imaging has shown worsening of the chiari.Patient has spina bifida. REVIEW OF SYSTEMS: General: No weight loss, malaise or fevers. Neurological: Positive for: headaches and impaired sensorium. Negative for: multiple sclerosis, Parkinson's disease, seizures, TIA and strokes. Respiratory: No history of current cough or dyspnea, or pneumonia in the past 6 weeks. No history of respiratory/pulmonary symptoms or problems. Cardiovascular: No history of HTN requiring medication, no history of angina, CHF, MD, cardiac surgery or stents. Denies rest pain, gangrene or revascularization/amputation for PVD. No history of cardiovascular symptoms or problems. GI: No history of GI symptoms or problems. No history of esophageal varices, recent ascites, or ETOH greater than 2 drinks per day. : Positive for: self catheterization. Negative for: hematuria, nephrolithiasis, renal failure and urinary tract infection. INTERNATIONAL MARKETING SPECIALIST: Negative for abnormal vaginal bleeding, abnormal vaginal discharge. Endocrine: No history of diabetes. Has not taken steroids within the past 30 days. No history of endocrinological symptoms or problems. Hematology: No history of bleeding or clotting disorder. Patient is not taking anti-coagulation or platelet medications. No history of hematological symptoms or problems. Oncology: No history of CA metastasis, chemo within 30 days, or radiotherapy within 90 days. No history of oncological symptoms or problems. Psych: No history of psychiatric symptoms or problems. Musculoskeletal: Positive for: swelling (Lymphedema of right arm and leg). Negative for: back pain and joint pain. Skin: Negative for lesions, rash and itching. PAST MEDICAL HISTORY Diagnosis Date Acute pain of right shoulder 01/21/2019 Chiari malformation type I (HCC) Lymphedema Menarche 09/2011 PMH - PAST MEDICAL HISTORY OF spina bifida PMH - PAST MEDICAL HISTORY OF 01/07/2004 color vision-normal PMH - PAST MEDICAL HISTORY OF bilateral club feet PMH - PAST MEDICAL HISTORY OF broken leg in 10/09 PAST SURGICAL HISTORY Procedure Laterality Date AFP, OPEN SPINA BIFIDA ([facility]) Spina Bifida surgery during infancy APPENDICONEOVESICOSTOMY 06/20/2016 APPENDICONEOVESICOSTOMY 12/2016 COLONOSCOPY FLX DX W/COLLJ SPEC WHEN PFRMD 10/24/2017 Colonoscopy KNEE RIGHT OP SURGERY 10/2012 right knee PAST SURGICAL HISTORY OF Bilateral Foot reconstruction x 4-5 times PAST SURGICAL HISTORY OF laser surgery on birthmark PAST SURGICAL HISTORY OF 10/2010 right knee surgery TONSILLECTOMY & ADENOIDECTOMY <AGE 10 FAMILY HISTORY Problem Relation Age of Onset Uterine Cancer Mother Ovarian cancer Mother Anesthesia Problems Maternal Uncle Patient's mother states her brother coded during a procedure as a baby. Not actually diagnosed withanything specific and did not undergo further anesthesia as an adult. Hypertension Maternal Grandmother Breast Cancer Maternal Grandmother Heart Maternal Grandfather Renal Cell Cancer Maternal Grandfather Thyroid Cancer Maternal Grandfather Hypertension Paternal Grandmother Hypertension Paternal Grandfather Heart Paternal Grandfather Social History Tobacco Use Smoking status: Never Smokeless tobacco: Never Tobacco comments: no smokers in home Vaping Use Vaping Use: Never used Substance Use Topics Alcohol use: Yes Comment: Not weekly Drug use: No Prior to Admission medications as of 12/04/23 1350 Medication Sig Last Dose Taking B.animalis,bifid,infantis,long (PROBIOTIC 4X ORAL) Take 1 capsule by mouth once daily. Taking Yes polyethylene glycol 3350 (MIRALAX) 17 gram/dose powder One quarter capful added to 800 cc of water and then flushed through the Banda stoma Taking Yes No medication comments found. ALLERGIES Allergen Reactions Banana Unknown Per diagnosis Latex Unknown Per diagnosis Objective PHYSICAL EXAM: General: alert and oriented and obese. Pertinent negatives noted - not distressed. Skin: normal color, no rash or lesions. HEENT: pupils equal round and pupils reactive to light. Pertinent negatives noted - no carotid bruit. Cardiovascular: regular rate and rhythm, normal S1 and S2, no rub, murmurs, or gallop. Respiratory: normal breath sounds, no wheezes or crackles. No chest wall deformity or tenderness. Abdomen: Pertinent negatives noted - no hernia and no mass. Extremities: no deformity, no edema or tenderness, no joint swelling or clubbing. Neurological: Normal cognition, in wheel chair during exam. PAIN ASSESSMENT: Pain Pain Level: 8 Pain Location: Head Description: Sharp Duration Amount of Time: 3 Duration Units: Years Frequency: Intermittent Intervention/Comfort measure: (sleep) VITALS: BP 117/77 Pulse 88 Temp (Src) 98 (Temporal) Ht 5' 4 (1.63m) Wt 195 lb (88.5kg) SpO2 96% LMP 11/11/2021 BMI 33.46 kg/(m^2). Diagnostic tests reviewed for today's visit: Lab Value Units Date High Low HB No results within date range. HCT No results within date range. WBC No results within date range. PLT No results within date range. NA No results within date range. K No results within date range. GLUC No results within date range. BUN No results within date range. CREAT No results within date range. PTSEC No results within date range. INR No results within date range. APTT No results within date range. ALT No results within date range. AST No results within date range. TBILI No results within date range. TSH No results within date range. Lab Value Units Date High Low HCGQT No results within date range. UHCG No results within date range. HCG, BODY* No results within date range. Lab Value Units Date High Low ABORHD No results within date range. ABSCREEN No results within date range. HBA1C, [place] (%) Date Value 03/14/2011 5.2 No results found for this or any previous visit (from the past 8760 hour(s)). No results found for this or any previous visit (from the past 25761 hour(s)). Instructions Given to Patient: Instructions located in the after visit summary. Patient given verbal and written preop instructions and voices comprehension and compliance. SIGNATURE: Christie Khan APRN.SIGNAL INSPECTOR PATIENT NAME: Madhuri Paulson DATE: December 04, 2023 TIME: 1:14 PM PAGER/CONTACT #: documented in this encounterBelle[facility]06-[facility]24 Instructions* Patient Instructions* Christie Khan APRN.CNP - 12/04/2023 1:18 PM EDT PATIENT PREOPERATIVE INSTRUCTIONS Nieves Story has scheduled you for your procedure at this surgery center: [facility] Scheduling Office: [phone] --[address] [place] [id number]. Please read below carefully for your personalized instructions. Arrival Time for Surgery: - To obtain your arrival time for surgery, call your physician's office the day before your surgery. - If your surgery is scheduled for Monday, call the Monday before. Your surgeon s telecommunicator supervisor will tell you what time to call the office. - If you have not reached the departmental telecommunicator supervisor by 5 P.M., call [phone] after 5 P.M. the day before your surgery. Please be aware that emergency situations arise, which may delay or change your surgical time. If this happens, we will notify you as soon as possible and regret any inconvenience. Dietary Restrictions: - No solid food after midnight. - You may have 12 ounces of clear liquids (water, clear juices such as apple juice or gatorade, carbonated beverages, clear tea, black coffee, jello) until 2 hours before scheduled arrival at facility. - Do not drink any alcohol after midnight the night before your surgery. Medications: Unless instructed differently below, stay on all of your medications until your surgery. Pre-Surgery Med Instructions Medication Instructions B.animalis,bifid,infantis,long (PROBIOTIC 4X ORAL) Do not take the day of surgery polyethylene glycol 3350 (MIRALAX) 17 gram/dose powder Do not take the day of surgery If you start any new medications after today's visit, please contact the surgeon's office. Blood Thinning Medications: - Stop NSAIDS (Ibuprofen, Advil, Aleve, Motrin, Celebrex, Mobic, etc.) 7 days before surgery, as directed by your surgeon. - Stop Aspirin 7 days before surgery, as directed by your surgeon. - Stop Vitamin E, ALL multi-vitamins, herbals and dietary supplements 7 days before surgery. - You may take Tylenol (Acetaminophen) or any of your pain medications that do not contain aspirin or NSAIDS as needed. Important Reminders: - Candy, mints, and tobacco products are NOT permitted the morning of surgery. - Hearing aids, dentures and glasses may be worn the morning of surgery. - NO jewelry, body piercings, makeup, hairpins, lotion or contacts are to be worn the day of surgery. If you develop symptoms such as a fever, cold, or flu, or have other changes to your health within TWO DAYS of scheduled surgery or the morning of surgery, please contact the surgery center above. Personal Belongings: -Please have photo ID and insurance cards. -If you do not have a copy of advance directives on file with us, please bring a copy with you on the day of surgery. - Leave ALL valuables and money at home or with family members. If you already have an Advance Directive, please fax a copy to [phone] or email to for it to be added to your chart. If you do not have an Advance Directive, you can find the appropriate form and more information at [email or web address]. We recommend that youcomplete the Advance Directive form found on the website and bring it with you the day of your surgery. It can be witnessed and scanned into your chart that day. Christie Khan APRN.FANNY documented in this encounterBelle[facility] Hospital06-03-2024 Telephone encounter Note * Telephone Encounter - Leena Cao MA - 12/04/2023 10:34 AM EDT Patient is establishing with Paco 12/26. Has never seen Radha Nixon. [facility] Telephone encounter Note* Telephone Encounter - Betsey Garcia - 12/04/2023 9:51 AM EDT Madhuri is calling Radha Nixon MD today to request Orders for AFO braces. Patient would like it sent to [facility] Patient has been identified by name and birthdate. Duration of symptoms: N/A Person calling: self Call patient at: on cell [phone] (home) [phone] (cell) Was an appointment scheduled: Yes: Date/Time: 12-27-23 Closing statement: Betsey Mcmillan [facility] Telephone encounter Note* Telephone Encounter - Juan Manuel Antonio DO - 11/28/2023 9:39 AM EDT Please schedule establish care appointment on 12/27/23 at 7 pm for a physical She is aware of appointment Juan Manuel Antonio DO [facility] Miscellaneous Notes* Telephone Encounter - Juan Manuel Antonio DO - 11/28/2023 9:39 AM EDT Please schedule establish care appointment on 12/27/23 at 7 pm for a physical She is aware of appointment Juan Manuel Antonio DO documented in this encounterBellevue Hospital05-03-2024 Telephone encounter Note * Telephone Encounter - Ventura Pizano RN - 11/03/2023 4:21 PM EDT Neuro SPINE CARE COORDINATION SURGERY SCHEDULING Patient accepts surgery date of 12/15/[address] Story. Planned procedure is chiari decompression. PACC will be 12/01/23 at [place]. Medications reviewed : Yes}. Meds to be stopped prior to surgery : NSAIDS and Vitamins and supplements. Additional pre op clearances needed : none. Any implanted devices : No. Transplant History No . Patient will get optimization lab work : none. Questions answered. Patient verbalizes understanding via teach back. Additional comments : Patient has a goal weight of 175lbs for safe prone positioning in surgery. When accepting appointment date, she verified that she would be at goal weight. Preoperative Needs Assessment Do you live alone or with someone that can help you? Alone Will you have assistance available at home after your surgery to help with physical activities sucha toileting or dressing? Occasionally Do you use a mobility aid for walking/getting around? (note, if more than one type of aid is used, select the one that is used more frequently) None- uses bilateral leg braces d/t spina bifida Anticipated LOS > 5 days: No Significant home social issues or Current history or past history of substance abuse: No Wheelchair baseline, Homebound baseline, Significant gait instability, or History of significant falls: Yes Thora/lumbar fusion any level planned or 2+ level posterior cervical fusion planned: No Myelopathic or Spine tumor: No Probability of non-home discharge disposition : Low [0] Ventura Pizano RN [facility] Miscellaneous Notes* Telephone Encounter - Ventura Pizano RN - 11/03/2023 4:21 PM EDT Neuro SPINE CARE COORDINATION SURGERY SCHEDULING Patient accepts surgery date of 12/15/[address] Story. Planned procedure is chiari decompression. PACC will be 12/01/23 at [facility] [place]. Medications reviewed : Yes}. Meds to be stopped prior to surgery : NSAIDS and Vitamins and supplements. Additional pre op clearances needed : none. Any implanted devices : No. Transplant History No . Patient will get optimization lab work : none. Questions answered. Patient verbalizes understanding via teach back. Additional comments : Patient has a goal weight of 175lbs for safe prone positioning in surgery. When accepting appointment date, she verified that she would be at goal weight. Preoperative Needs Assessment Do you live alone or with someone that can help you? Alone Will you have assistance available at home after your surgery to help with physical activities sucha toileting or dressing? Occasionally Do you use a mobility aid for walking/getting around? (note, if more than one type of aid is used, select the one that is used more frequently) None- uses bilateral leg braces d/t spina bifida Anticipated LOS > 5 days: No Significant home social issues or Current history or past history of substance abuse: No Wheelchair baseline, Homebound baseline, Significant gait instability, or History of significant falls: Yes Thora/lumbar fusion any level planned or 2+ level posterior cervical fusion planned: No Myelopathic or Spine tumor: No Probability of non-home discharge disposition : Low [0] Ventura Pizano RN documented in this encounterBellevue Hospital05-03-2024 Telephone encounter Note * Telephone Encounter - Ventura Pizano RN - 11/03/2023 4:10 PM EDT Pt returned our call- see telephone encounter from 11/03/23 to follow this thread. [facility] Miscellaneous Notes* Telephone Encounter - Ventura Pizano RN - 11/03/2023 4:10 PM EDT Pt returned our call- see telephone encounter from 11/03/23 to follow this thread. * Telephone Encounter - Ventura Pizano RN - 11/03/2023 3:51 PM EDT Called patient via phone to assist with scheduling. No answer. Left a message requesting she returnour call. documented in this encounterBellevue Hospital05-03-2024 Telephone encounter Note * Telephone Encounter - Ventura Pizano RN - 11/03/2023 3:51 PM EDT Called patient via phone to assist with scheduling. No answer. Left a message requesting she returnour call. [facility] Tele[facility] encounter Note* Telephone Encounter - Ventura Pizano RN - 10/27/2023 12:53 PM EDT Called patient via phone. No answer and voicemail unidentified. Left a message requesting patient return our call to schedule. [facility] Miscellaneous Notes* Telephone Encounter - Ventura Pizano RN - 10/27/2023 12:53 PM EDT Called patient via phone. No answer and voicemail unidentified. Left a message requesting patient return our call to schedule. * Telephone Encounter - Ishan Shepard - 10/27/2023 10:32 AM EDT Pt is calling back in regarding message below-schedule surgery. * Telephone Encounter - Natacha Epps - 10/25/2023 11:36 AM EDT General Call Caller : Patient Contact Reason for Call : Patient calling to schedule surgery. Patient requesting return call ? Yes documented in this encounterBellevue Hospital04-26-2024 Telephone encounter Note * Telephone Encounter - Ishan Shepard - 10/27/2023 10:32 AM EDT Pt is calling back in regarding message below-schedule surgery. [facility] Tele[facility] Note* Telephone Encounter - Natacha Epps - 10/25/2023 11:36 AM EDT General Call Caller : Patient Contact Reason for Call : Patient calling to schedule surgery. Patient requesting return call ? Yes [facility] History of Present illness Narrative* Nieves Story MD - 10/24/2023 3:19 PM EDT Seen via VV with permission, joined by Mom and sister, and osbaldo Faith I have communicated my name and active licensure. The patient's identity and physical location wereverified at the time of this visit. Either the patient or their legal goodwill representative has been informed of the risks and benefits of -- and alternatives to -- treatment through a remote evaluation andconsents to proceed with the evaluation remotely. 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 Approaching goal weight 175 (currently 190) CC Here for surgical discussion and explanation I answered questions I explained details of the procedure We went over the recovery process They understand the risks and benefits including the option of expectant observation She wishes to go ahead with surgery and we will schedule Chiari decompression I spent 30 mins reviewing the chart and discussing a plan of care Nieves Story MD documented in this encounterBellevue Hospital03-27-2023 Miscellaneous Notes* Telephone Encounter - Andreea Moura LPN - 09/26/2022 9:49 AM EDT Medical records request for a copy of pt's vaccine record was received. Vaccine record was printed and faxed to [facility] at [phone] . documented in this encounterBellevue Hospital03-22-2023 Miscellaneous Notes* Telephone Encounter - Andreea Moura LPN - 09/21/2022 10:58 AM EDT Received a request for medical records from [facility]. Request was faxed to medical records at [phone] and then sent to scanning. 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 Patient denies any new or worsening symptoms of which a provider is not aware: Yes. documented in this encounterBellevue Hospital2022 History of Present illness Narrative* Leticia Mcgrath, RT(R) - 06/22/2022 8:00 AM EST Radiology Service Progress Note PATIENT NAME: Madhuri Paulson DATE OF SERVICE: June 22, 2022 TIME: 8:28 AM PATIENT IDENTITY VERIFICATION COMPLETED USING TWO (2) IDENTIFIERS: Name and Date of confirmedby patient verbally. FALL SCREENING: Has the patient had 2 falls in the last year or 1 fall with injury or currently using an Ambulatory Assistive Device (Walker, Cane, Wheelchair, Crutches, etc.)? No PATIENT GENDER DATA: Female. status: : No status: NO. PATIENT RELEVANT IMPLANT DATA REVIEWED: Yes RADIOLOGY DEPARTMENT: MR; Exam(s) Completed: Spine: Cervical spine w/CSF Flow PERIPHERAL IV DATA: Not applicable SIGNED BY: RT Miya(R) June 22, 2022 8:28 AM documented in this [facility]12-19-2022 Miscellaneous Notes* Telephone Encounter - Stalin Nuñez - 06/20/2022 7:56 AM EST Patient given results and verbalized understanding of instructions given. Stalin Nuñez * Telephone Encounter - Garfield Mack APRN.CNP - 06/20/2022 7:27 AM EST COVID-19, influenza A, and influenza B PCR test are negative. Continue supportive therapies as discussed during visit. Follow-up with PCP if symptoms are not improving. Garfield Mack APRN.FANNY documented in this [facility]12-18-2022 Miscellaneous Notes* Addendum Note - Jammie Gooden APRN.CNP - 06/19/2022 9:15 AM ESTAddended by: JAMMIE GOODEN on: 06/19/2022 09:15 AM Modules accepted: Orders documented in this [facility]12-18-2022 History of Present illness Narrative* Jammie Gooden APRN.CNP - 06/19/2022 8:18 AM EST This note was created using [employer]Spotriter. Subjective Madhuri Paulson is a 21 year old female. 21 year old female with no significant PMH presents for complaints of sore throat. Acute onset yesterday +sore throat, states she woke up with it +nasal congestion Denies cough. Denies body aches. Denies fatigue Denies fever or chills. Endorses that she just came back from college on her winter break Denies using homeopathic or OTC medications. The history is provided by the patient. Sore Throat This is a new problem. The current episode started yesterday. The problem has been unchanged. Neither side of throat is experiencing more pain than the other. There has been no fever. The pain is at a severity of 5/10. The pain is moderate. Pertinent negatives include no abdominal pain, congestion,coughing, diarrhea, drooling, ear discharge, ear pain, headaches, hoarse voice, plugged ear sensation, neck pain, shortness of breath, stridor, swollen glands, trouble swallowing or vomiting. She hashad exposure to strep. She has had no exposure to mono. She has tried nothing for the symptoms. Thetreatment provided no relief. PAST MEDICAL HISTORY Diagnosis Date Acute pain of right shoulder 01/21/2019 Menarche 09/11 PMH - PAST MEDICAL HISTORY OF spina bifida PMH - PAST MEDICAL HISTORY OF 01/07/04 color vision-normal PMH - PAST MEDICAL HISTORY OF bilateral club feet PMH - PAST MEDICAL HISTORY OF broken leg in 10/09 PAST SURGICAL HISTORY Procedure Laterality Date APPENDICONEOVESICOSTOMY 06/20/16, 07/10/16 APPENDICONEOVESICOSTOMY 12/2016 COLONOSCOPY FLX DX W/COLLJ SPEC WHEN PFRMD 10/24/2017 Colonoscopy KNEE RIGHT OP SURGERY 10/2012 right knee PAST SURGICAL HISTORY OF feet surgery PAST SURGICAL HISTORY OF laser surgery on birthmark PAST SURGICAL HISTORY OF 10/11 right knee surgery ALLERGIES Banana and Latex MEDICATIONS polyethylene glycol 3350 (MIRALAX) 17 gram/dose powder One quarter capful added to 800 cc of water and then flushed through the Banda stoma miSOPROStol (CYTOTEC) 200 mcg tablet Take two tablets PO night before procedure and two tablets morning of procedure (Patient not taking: Reported on 06/19/2022) FAMILY HISTORY Problem Relation Age of Onset Hypertension Maternal Grandmother Hypertension Paternal Grandmother Hypertension Paternal Grandfather Social History Tobacco Use Smoking status: Never Smokeless tobacco: Never Tobacco comments: no smokers in home Vaping Use Vaping Use: Never used Substance Use Topics Alcohol use: No Drug use: No Review of Systems Constitutional: Negative for activity change, chills, diaphoresis, fatigue and fever. HENT: Positive for sore throat. Negative for congestion, drooling, ear discharge, ear pain, hoarse voice and trouble swallowing. Eyes: Negative for pain, discharge, redness and itching. Respiratory: Negative for cough, shortness of breath and stridor. Cardiovascular: Negative for chest pain, palpitations and leg swelling. Gastrointestinal: Negative for abdominal pain, diarrhea and vomiting. Musculoskeletal: Negative for back pain and neck pain. Skin: Negative for color change and pallor. Allergic/Immunologic: Negative for environmental allergies, food allergies and immunocompromised state. Neurological: Negative for headaches. Hematological: Negative for adenopathy. Does not bruise/bleed easily. Psychiatric/Behavioral: Negative for agitation and behavioral problems. Objective BP 104/60 Pulse 90 Temp 36.7 C (98.1 F) Resp 21 Wt 90.4 kg (199 lb 6.4 oz) LMP 11/11/2021 SpO2 99% BMI 34.23 kg/m Physical Exam Vitals and nursing note reviewed. Constitutional: General: She is not in acute distress. Appearance: Normal appearance. She is normal weight. She is not ill-appearing, toxic-appearing or diaphoretic. HENT: Head: Normocephalic and atraumatic. Right Ear: Ear canal and external ear normal. Left Ear: Ear canal and external ear normal. Nose: Nose normal. No congestion or rhinorrhea. Mouth/Throat: Mouth: Mucous membranes are moist. Pharynx: Posterior oropharyngeal erythema (posterior erythema. Uvula midline. Handling secretions) present. No oropharyngeal exudate. Eyes: General: Right eye: No discharge. Left eye: No discharge. Extraocular Movements: Extraocular movements intact. Conjunctiva/sclera: Conjunctivae normal. Pupils: Pupils are equal, round, and reactive to light. Cardiovascular: Rate and Rhythm: Normal rate and regular rhythm. Pulses: Normal pulses. Heart sounds: Normal heart sounds. No murmur heard. No friction rub. Pulmonary: Effort: Pulmonary effort is normal. No respiratory distress. Breath sounds: Normal breath sounds. No stridor. No wheezing, rhonchi or rales. Chest: Chest wall: No tenderness. Abdominal: General: Abdomen is flat. There is no distension. Palpations: Abdomen is soft. There is no mass. Tenderness: There is no abdominal tenderness. There is no right CVA tenderness, left CVA tenderness, guarding or rebound. Hernia: No hernia is present. Musculoskeletal: General: No swelling, tenderness, deformity or signs of injury. Normal range of motion. Cervical back: Normal range of motion and neck supple. No rigidity. Right lower leg: No edema. Left lower leg: No edema. Lymphadenopathy: Cervical: No cervical adenopathy. Skin: General: Skin is warm and dry. Capillary Refill: Capillary refill takes less than 2 seconds. Coloration: Skin is not jaundiced or pale. Findings: No bruising, erythema, lesion or rash. Neurological: General: No focal deficit present. Mental Status: She is alert and oriented to person, place, and time. Cranial Nerves: No cranial nerve deficit. Sensory: No sensory deficit. Motor: No weakness. Coordination: Coordination normal. Gait: Gait normal. Psychiatric: Mood and Affect: Mood normal. Behavior: Behavior normal. Thought Content: Thought content normal. Judgment: Judgment normal. Assessment and Plan ASSESSMENT/PLAN: 1. Sore throat - ICD9: 462, ICD10: J02.9 - suspect viral - Alere Strep Test negative , no culture pending - Discussed supportive care treatment with fluids, rest and analgesia. - The patient may also use OTC cough and cold meds as needed and warm salt water gargles, throat lozenges and/or OTC throat spray as needed. - Contagious dz precautions discussed- including considered contagious until on antibiotics for 24 hours - The patient should follow up in 3-5 days if symptoms persist or worsen - Call back if drooling, increased temperature, symptoms of dehydration and/or still sick in one week - STREP A MOLECULAR (POC) 2. URI - suspect viral - Alere Strep Test negative , no culture pending - Discussed supportive care treatment with fluids, rest and analgesia. - The patient may also use OTC cough and cold meds as needed and warm salt water gargles, throat lozenges and/or OTC throat spray as needed. - Contagious dz precautions discussed- including considered contagious until on antibiotics for 24 hours - The patient should follow up in 3-5 days if symptoms persist or worsen - Call back if drooling, increased temperature, symptoms of dehydration and/or still sick in one week - STREP A MOLECULAR (POC) Jammie Gooden APRN.SIGNAL INSPECTOR documented in this encounterBellevue Hospital05-17-2022 History of Present illness Narrative* Jocy Casiano MD - 11/16/2021 8:44 AM EDT Mundo is a 20 year old who presents for an annual gynecologic exam without complaints. 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 Menses: cycles every 28 days and 5 days of flow. Contraception: none HPV vaccine: Last Pap: na HPV: N/A History of abnormal pap: No Last mammogram: never Sexually active: Yes History of STDS: None Patient concerns for STD exposure: No. Exercise: active Diet: balanced OB History T0 L0 SAB0 IAB0 Ectopic0 Multiple0 Live Births0 Electroformer History LMP: 11/11/2021, Having periods Age at Menarche: Age at First : Age at Menopause: Electroformer History Comments: Sexual Activity: Never; No partner data on record Contraception: No contraception data on record PAST MEDICAL HISTORY Diagnosis Date Acute pain of right shoulder 01/21/2019 Menarche 09/11 PMH - PAST MEDICAL HISTORY OF spina bifida PMH - PAST MEDICAL HISTORY OF 01/07/04 color vision-normal PMH - PAST MEDICAL HISTORY OF bilateral club feet PMH - PAST MEDICAL HISTORY OF broken leg in 10/09 PAST SURGICAL HISTORY Procedure Laterality Date APPENDICONEOVESICOSTOMY 06/20/16, 07/10/16 APPENDICONEOVESICOSTOMY 12/2016 COLONOSCOPY FLX DX W/COLLJ SPEC WHEN PFRMD 10/24/2017 Colonoscopy KNEE RIGHT OP SURGERY 10/2012 right knee PAST SURGICAL HISTORY OF feet surgery PAST SURGICAL HISTORY OF laser surgery on birthmark PAST SURGICAL HISTORY OF 10/11 right knee surgery FAMILY HISTORY Problem Relation Age of Onset Hypertension Maternal Grandmother Hypertension Paternal Grandmother Hypertension Paternal Grandfather SOCIAL HISTORY Social History Tobacco Use Smoking status: Never Smoker Smokeless tobacco: Never Used Tobacco comment: no smokers in home Vaping Use Vaping Use: Never used Substance Use Topics Alcohol use: No Drug use: No REVIEW OF SYSTEMS Abdomen: No abdominal pain, nausea, vomiting, diarrhea, or constipation. No bloating, early satiety, indigestion, or increased flatulence. Bladder: Frequent UTIs- self cath. Seeing Urology soon Breast: No breast lumps, nipple d/c, overlying skin changes, redness or skin retraction. Allergies and current medication updated:Yes EXAM: BP 128/78 Ht 5' 4 (1.63m) Wt 186 lb (84.4kg) LMP 11/11/2021 BMI 31.91 kg/(m^2). GENERAL: pleasant, female in no apparent distress HEENT: Normocephalic, atraumatic, mucus membranes moist and no lesions NECK: Supple, full range of motion, no adenopathy and thyroid normal DERMATOLOGY: Normal, without lesions, non-icteric and non-hirsute BREAST: declined ABDOMEN: soft, non-tender and no masses PELVIC: external genitalia normal, normal Bartholin's glands, urethra, [place]'s glands, no vulvar lesions, no cervical lesions, good vaginal support, physiologic discharge present, normal appearing perineal body and perianal region BIMANUAL: uterus normal size, shape and consistency, no adnexal masses and non-tender RECTOVAGINAL: deferred. NEURO: alert and oriented x3,exam grossly non-focal EXTREMITIES: normal ASSESSMENT/PLAN: 1) Health maintenance: Pap done with reflex HPV. Mammogram starting age 40. Nutrition, exercise and routine health maintenance exams reviewed. Calcium/Vitamin D supplementation information provided. 2) Contraception: none. Contraceptive options reviewed and information provided. 3) STD screening: Declined STD check. 4) Follow up one year or sooner as needed 5) IUD- Mirena IUD referral placed. Jocy Rodríguez MD * Alyson Allred Ma - 11/16/2021 8:33 AM EDT Internet Project Manager offered: Patient declines. [facility] Miscellaneous Notes* Telephone Encounter - Smita Bhatt MD - 10/12/2021 9:48 AM EDT form completed and emailed to patient. * Telephone Encounter - Andreea Moura LPN - 10/11/2021 4:03 PM EDT Parking Permit Application form was placed in your bin for review and to finish completing sections5, 6 and 8. * Telephone Encounter - Smita Bhatt MD - 10/08/2021 2:14 PM EDT Please complete as much of this possible of the parking disability form and return to me. Form given to nursing staff [facility] History of Present illness Narrative* Sudha Vanegas, RT(R) - 04/15/2021 3:00 PM EDT Radiology Service Progress Note PATIENT NAME: Madhuri Paulson DATE OF SERVICE: April 15, 2021 TIME: 3:08 PM PATIENT IDENTITY VERIFICATION COMPLETED USING TWO (2) IDENTIFIERS: Name and Date of confirmedby patient verbally. FALL SCREENING: Has the patient had 2 falls in the last year or 1 fall with injury or currently using an Ambulatory Assistive Device (Walker, Cane, Wheelchair, Crutches, etc.)? No PATIENT GENDER DATA: Female. status: : No status: NO. PATIENT RELEVANT IMPLANT DATA REVIEWED: Yes RADIOLOGY DEPARTMENT: General X-ray: Exam(s) Completed: Lower Extremity X- Ray(s): Knee, AP / Lat / Tunne / Merchant Bilateral and Wt. Bearing PERIPHERAL IV DATA: Not applicable SIGNED BY: Sudha Vanegas RT(R) April 15, 2021 3:08 PM documented in this encounterB[facility] History of Past illness Narrative* Problem Noted Date Resolved Date Acute pain of right shoulder 01/21/2019 SPRAIN STRAIN, (LIGAMENT,MUSCLE TIBIA, PROXIMAL END 08/07/2008 11/20/2011 Follow-up examination following surgery 12/31/19 03 11/20/2011 documented as of this encounter (statuses as of 10/08/2021) [facility] illness Narrative* Problem Noted Date Resolved Date Acute pain of right shoulder 01/21/2019 SPRAIN STRAIN, (LIGAMENT,MUSCLE TIBIA, PROXIMAL END 08/07/2008 11/20/2011 Follow-up examination following surgery 12/31/19 03 11/20/2011 documented as of this encounter (statuses as of 10/12/2021) [facility] illness Narrative* Problem Noted Date Resolved Date Acute pain of right shoulder 01/21/2019 SPRAIN STRAIN, (LIGAMENT,MUSCLE TIBIA, PROXIMAL END 08/07/2008 11/20/2011 Follow-up examination following surgery 12/31/19 03 11/20/2011 documented as of this encounter (statuses as of 11/16/2021) [facility] illness Narrative* Problem Noted Date Resolved Date Acute pain of right shoulder 01/21/2019 SPRAIN STRAIN, (LIGAMENT,MUSCLE TIBIA, PROXIMAL END 08/07/2008 11/20/2011 Follow-up examination following surgery 12/31/19 03 11/20/2011 documented as of this encounter (statuses as of 03/29/2022) [facility] Narrative* Problem Noted Date Resolved Date Acute pain of right shoulder 01/21/2019 SPRAIN STRAIN, (LIGAMENT,MUSCLE TIBIA, PROXIMAL END 08/07/2008 11/20/2011 Follow-up examination following surgery 12/31/19 03 11/20/2011 documented as of this encounter (statuses as of 06/19/2022) [facility] Narrative* Problem Noted Date Resolved Date Acute pain of right shoulder 01/21/2019 SPRAIN STRAIN, (LIGAMENT,MUSCLE TIBIA, PROXIMAL END 08/07/2008 11/20/2011 Follow-up examination following surgery 12/31/19 03 11/20/2011 documented as of this encounter (statuses as of 06/20/2022) [address]-2019 History of Past illness Narrative* Problem Noted Date Resolved Date Acute pain of right shoulder 01/21/2019 SPRAIN STRAIN, (LIGAMENT,MUSCLE TIBIA, PROXIMAL END 08/07/2008 11/20/2011 Follow-up examination following surgery 12/31/19 03 11/20/2011 documented as of this encounter (statuses as of 07/03/2022) [facility] Narrative* Problem Noted Date Resolved Date Acute pain of right shoulder 01/21/2019 SPRAIN STRAIN, (LIGAMENT,MUSCLE TIBIA, PROXIMAL END 08/07/2008 11/20/2011 Follow-up examination following surgery 12/31/19 03 11/20/2011 documented as of this encounter (statuses as of 07/26/2022) [facility] Narrative* Problem Noted Date Resolved Date Acute pain of right shoulder 01/21/2019 SPRAIN STRAIN, (LIGAMENT,MUSCLE TIBIA, PROXIMAL END 08/07/2008 11/20/2011 Follow-up examination following surgery 12/31/19 03 11/20/2011 documented as of this encounter (statuses as of 09/21/2022) [address]-2019 History of Past illness Narrative* Problem Noted Date Resolved Date Acute pain of right shoulder 01/21/2019 SPRAIN STRAIN, (LIGAMENT,MUSCLE TIBIA, PROXIMAL END 08/07/2008 11/20/2011 Follow-up examination following surgery 12/31/19 03 11/20/2011 documented as of this encounter (statuses as of 09/26/2022) [facility] Narrative* Problem Noted Date Diagnosed Date Resolved Date Acute pain of right shoulder 01/21/2019 06/29/2020 SPRAIN STRAIN, (LIGAMENT,MUS ETHAN TIBIA, PROXIMAL END 08/07/2008 11/20/2011 Follow-up examination following surgery 12/30/2002 11/20/2011 documented as of this encounter (statuses as of 03/25/2023) [facility] Narrative* Problem Noted Date Diagnosed Date Resolved Date Acute pain of right shoulder 01/21/2019 06/29/2020 SPRAIN STRAIN, (LIGAMENT,MUS ETHAN TIBIA, PROXIMAL END 08/07/2008 11/20/2011 Follow-up examination following surgery 12/30/2002 11/20/2011 documented as of this encounter (statuses as of 04/08/2023) [facility] Narrative* Problem Noted Date Diagnosed Date Resolved Date Acute pain of right shoulder 01/21/2019 06/29/2020 SPRAIN STRAIN, (LIGAMENT,MUS ETHAN TIBIA, PROXIMAL END 08/07/2008 11/20/2011 Follow-up examination following surgery 12/30/2002 11/20/2011 documented as of this encounter (statuses as of 05/07/2023) [facility] + Plan note No data available for this section [facility] Evaluation note* Diagnosis Encounter for gynecological examination (general) (routine) without abnormal findings- Primary Screening for cervical cancer Screening for malignant neoplasm of the cervix Encounter for initial prescription of intrauterine contraceptive device (IUD) documented in this encounter [facility] note* Diagnosis Chiari I malformation (HCC)- Primary Compression of brain [facility] Diagnosis Sore throat- Primary Acute pharyngitis URI, acute Acute upper respiratory infections of unspecified site documented in this encounter [facility] note* Diagnosis Arnold-Chiari syndrome (HCC)- Primary Spina bifida with hydrocephalus, unspecified region [facility] Diagnosis Chiari I malformation (HCC) Compression of brain [facility] Diagnosis Arnold-Chiari syndrome (HCC)- Primary Spina bifida with hydrocephalus, unspecified region [facility] Diagnosis Chiari malformation type I (HCC)- Primary Compression of brain Chiari I malformation (HCC) Compression of brain Preop testing Preoperative examination, unspecified [facility]* Diagnosis Preoperative examination- Primary Preoperative examination, unspecified Chiari malformation type I (HCC) Compression of brain Spina bifida of lumbar region without hydrocephalus (HCC) Lymphedema Other lymphedema Thoracic outlet syndrome Brachial plexus lesions Cauda equina syndrome with neurogenic bladder (HCC) Cauda equina syndrome with neurogenic bladder Neurogenic bowel Class 1 obesity with serious comorbidity and body mass index (BMI) of 33.0 to 33.9 in adult, unspecified obesity type Chiari malformation type I (HCC) Compression of brain * Assessment & Plan Note - Christie Khan APRN.CNP - 12/04/2023 2:23 PM EDT Associated Problem(s): Obese Assessment: Body mass index is 33.47 kg/m . * Assessment & Plan Note - Christie Khan APRN.CNP - 12/04/2023 2:23 PM EDT Associated Problem(s): Neurogenic bowel Assessment: Patient has stoma present. Takes Probiotic daily and Miralax flush. No current abdominal pain. * Assessment & Plan Note - Christie Khan APRN.CNP - 12/04/2023 2:22 PM EDT Associated Problem(s): Cauda equina syndrome with neurogenic bladder (HCC) Assessment: Patient self catheterizes 4 x day. Denies recent UTIs. * Assessment & Plan Note - Christie Khan APRN.CNP - 12/04/2023 2:18 PM EDT Associated Problem(s): Thoracic outlet syndrome Assessment: Thoracic outlet syndrome of right arm. Patient does note swelling and numbness/tinglingpresent but unchanged. 2018 PVR: Positive for arterial compression with thoracic outlet maneuvers in the right arm. There is over a 30 mmHg drop in pressure with the arm at 120 degree position; however, waveform remains normal. * Assessment & Plan Note - Christie Khan APRN.CNP - 12/04/2023 2:17 PM EDT Associated Problem(s): Lymphedema Assessment: Patient reports lymphedema of right side (arm and leg). Unknown etiology per mom. * Assessment & Plan Note - Christie Khan APRN.CNP - 12/04/2023 2:16 PM EDT Associated Problem(s): Spina bifida of lumbar region (HCC) Assessment: s/p surgical intervention during childhood. Patient ambulatory but uses wheel chair forlong distance. Reports no feeling in bilateral feet and back of thighs. 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 * Assessment & Plan Note - Christie Khan APRN.CNP - 12/04/2023 2:15 PM EDT Associated Problem(s): Chiari malformation type I (HCC) Assessment: + Bad headaches and bilateral hand numbness when sleeping. Previously monitoring on MRIs recently worsening. Scheduled for surgical intervention. 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) Compression of brain [facility] Diagnosis Urinary frequency- Primary Chiari malformation type I (HCC) Compression of brain [facility] Diagnosis Chiari malformation type I (HCC)- Primary Compression of brain Chiari malformation type I (HCC) Compression of brain [facility] Diagnosis Spina bifida of lumbar region without hydrocephalus (HCC)- Primary Cauda equina syndrome with neurogenic bladder (HCC) Cauda equina syndrome with neurogenic bladder Chiari malformation type I (HCC) Compression of brain S/P brain surgery Other postprocedural status Neurogenic bladder Neurogenic bladder, NOS [facility] Diagnosis Routine physical examination- Primary [facility] Spina bifida of lumbar region without hydrocephalus (HCC) Cauda equina syndrome with neurogenic bladder (HCC) Cauda equina syndrome with neurogenic bladder Chiari malformation type I (HCC) Compression of brain S/P brain surgery Other postprocedural status Abnormality of gait [facility] Diagnosis Visit for suture removal- Primary Encounter for removal of sutures [facility] Diagnosis History of urinary self-catheterization- Primary Dysuria [facility]* Diagnosis Abnormality of gait- Primary [facility] Diagnosis Chiari malformation type I (HCC)- Primary Compression of brain Chiari I malformation (HCC) Compression of brain [facility]* Diagnosis Postoperative pain Other acute postoperative pain Chiari I malformation (HCC) Compression of brain Preoperative examination- Primary Preoperative examination, unspecified Chiari malformation type I (HCC) Compression of brain Spina bifida of lumbar region without hydrocephalus (HCC) Lymphedema Other lymphedema Thoracic outlet syndrome Brachial plexus lesions Cauda equina syndrome with neurogenic bladder (HCC) Cauda equina syndrome with neurogenic bladder Neurogenic bowel Class 1 obesity with serious comorbidity and body mass index (BMI) of 33.0 to 33.9 in adult, unspecified obesity type [facility] Diagnosis Chiari I malformation (HCC) Compression of brain Postoperative pain Other acute postoperative pain Preoperative examination- Primary Preoperative examination, unspecified Chiari malformation type I (HCC) Compression of brain Spina bifida of lumbar region without hydrocephalus (HCC) Lymphedema Other lymphedema Thoracic outlet syndrome Brachial plexus lesions Cauda equina syndrome with neurogenic bladder (HCC) Cauda equina syndrome with neurogenic bladder Neurogenic bowel Class 1 obesity with serious comorbidity and body mass index (BMI) of 33.0 to 33.9 in adult, unspecified obesity type documented in this encounter [facility] note* Diagnosis Chiari malformation type I (HCC)- Primary Compression of brain Postoperative pain Other acute postoperative pain Obesity, Class I, BMI 30-34.9 Obesity, unspecified Cauda equina syndrome with neurogenic bladder (HCC) Cauda equina syndrome with neurogenic bladder Constipation Unspecified constipation Lymphedema Other lymphedema Muscle weakness (generalized) Neurogenic bowel Spina bifida of lumbar region (HCC) Spina bifida without mention of hydrocephalus, lumbar region Thoracic outlet syndrome Brachial plexus lesions Abnormality of gait S/P brain surgery Other postprocedural status Postoperative pain Other acute postoperative pain Preoperative examination- Primary Preoperative examination, unspecified Chiari malformation type I (HCC) Compression of brain Spina bifida of lumbar region without hydrocephalus (HCC) Lymphedema Other lymphedema Thoracic outlet syndrome Brachial plexus lesions Cauda equina syndrome with neurogenic bladder (HCC) Cauda equina syndrome with neurogenic bladder Neurogenic bowel Class 1 obesity with serious comorbidity and body mass index (BMI) of 33.0 to 33.9 in adult, unspecified obesity type URI, acute- Primary Acute upper respiratory infections of unspecified site Otalgia, left documented in this encounter [facility] note* Diagnosis Pain Generalized pain Postoperative pain Other acute postoperative pain Preoperative examination- Primary Preoperative examination, unspecified Chiari malformation type I (HCC) Compression of brain Spina bifida of lumbar region without hydrocephalus (HCC) Lymphedema Other lymphedema Thoracic outlet syndrome Brachial plexus lesions Cauda equina syndrome with neurogenic bladder (HCC) Cauda equina syndrome with neurogenic bladder Neurogenic bowel Class 1 obesity with serious comorbidity and body mass index (BMI) of 33.0 to 33.9 in adult, unspecified obesity type documented in this encounter [facility] note* Diagnosis Chiari malformation type I (HCC)- Primary Compression of brain Postoperative pain Other acute postoperative pain Obesity, Class I, BMI 30-34.9 Obesity, unspecified Cauda equina syndrome with neurogenic bladder (HCC) Cauda equina syndrome with neurogenic bladder Constipation Unspecified constipation Lymphedema Other lymphedema Muscle weakness (generalized) Neurogenic bowel Spina bifida of lumbar region (HCC) Spina bifida without mention of hydrocephalus, lumbar region Thoracic outlet syndrome Brachial plexus lesions Abnormality of gait S/P brain surgery Other postprocedural status Postoperative pain Other acute postoperative pain Preoperative examination- Primary Preoperative examination, unspecified Chiari malformation type I (HCC) Compression of brain Spina bifida of lumbar region without hydrocephalus (HCC) Lymphedema Other lymphedema Thoracic outlet syndrome Brachial plexus lesions Cauda equina syndrome with neurogenic bladder (HCC) Cauda equina syndrome with neurogenic bladder Neurogenic bowel Class 1 obesity with serious comorbidity and body mass index (BMI) of 33.0 to 33.9 in adult, unspecified obesity type Burning with urination- Primary Dysuria documented in this encounter [facility] note* Diagnosis Chiari malformation type I (HCC)- Primary Compression of brain Postoperative pain Other acute postoperative pain Obesity, Class I, BMI 30-34.9 Obesity, unspecified Cauda equina syndrome with neurogenic bladder (HCC) Cauda equina syndrome with neurogenic bladder Constipation Unspecified constipation Lymphedema Other lymphedema Muscle weakness (generalized) Neurogenic bowel Spina bifida of lumbar region (HCC) Spina bifida without mention of hydrocephalus, lumbar region Thoracic outlet syndrome Brachial plexus lesions Abnormality of gait S/P brain surgery Other postprocedural status Postoperative pain Other acute postoperative pain Preoperative examination- Primary Preoperative examination, unspecified Chiari malformation type I (HCC) Compression of brain Spina bifida of lumbar region without hydrocephalus (HCC) Lymphedema Other lymphedema Thoracic outlet syndrome Brachial plexus lesions Cauda equina syndrome with neurogenic bladder (HCC) Cauda equina syndrome with neurogenic bladder Neurogenic bowel Class 1 obesity with serious comorbidity and body mass index (BMI) of 33.0 to 33.9 in adult, unspecified obesity type Chiari I malformation (HCC) Compression of brain documented in this encounter [facility] note* Diagnosis Chiari malformation type I (HCC)- Primary Compression of brain Postoperative pain Other acute postoperative pain Obesity, Class I, BMI 30-34.9 Obesity, unspecified Cauda equina syndrome with neurogenic bladder (HCC) Cauda equina syndrome with neurogenic bladder Constipation Unspecified constipation Lymphedema Other lymphedema Muscle weakness (generalized) Neurogenic bowel Spina bifida of lumbar region (HCC) Spina bifida without mention of hydrocephalus, lumbar region Thoracic outlet syndrome Brachial plexus lesions Abnormality of gait S/P brain surgery Other postprocedural status Postoperative pain Other acute postoperative pain Preoperative examination- Primary Preoperative examination, unspecified Chiari malformation type I (HCC) Compression of brain Spina bifida of lumbar region without hydrocephalus (HCC) Lymphedema Other lymphedema Thoracic outlet syndrome Brachial plexus lesions Cauda equina syndrome with neurogenic bladder (HCC) Cauda equina syndrome with neurogenic bladder Neurogenic bowel Class 1 obesity with serious comorbidity and body mass index (BMI) of 33.0 to 33.9 in adult, unspecified obesity type Lower respiratory tract infection- Primary Other diseases of respiratory system, not elsewhere classified documented in this encounter [facility] note* Diagnosis Chiari malformation type I (HCC)- Primary Compression of brain Postoperative pain Other acute postoperative pain Obesity, Class I, BMI 30-34.9 Obesity, unspecified Cauda equina syndrome with neurogenic bladder (HCC) Cauda equina syndrome with neurogenic bladder Constipation Unspecified constipation Lymphedema Other lymphedema Muscle weakness (generalized) Neurogenic bowel Spina bifida of lumbar region (HCC) Spina bifida without mention of hydrocephalus, lumbar region Thoracic outlet syndrome Brachial plexus lesions Abnormality of gait S/P brain surgery Other postprocedural status Postoperative pain Other acute postoperative pain Preoperative examination- Primary Preoperative examination, unspecified Chiari malformation type I (HCC) Compression of brain Spina bifida of lumbar region without hydrocephalus (HCC) Lymphedema Other lymphedema Thoracic outlet syndrome Brachial plexus lesions Cauda equina syndrome with neurogenic bladder (HCC) Cauda equina syndrome with neurogenic bladder Neurogenic bowel Class 1 obesity with serious comorbidity and body mass index (BMI) of 33.0 to 33.9 in adult, unspecified obesity type Lower resp. tract infection- Primary Other diseases of respiratory system, not elsewhere classified documented in this encounter [facility] note* Diagnosis Chiari malformation type I (HCC)- Primary Compression of brain Postoperative pain Other acute postoperative pain Obesity, Class I, BMI 30-34.9 Obesity, unspecified Cauda equina syndrome with neurogenic bladder (HCC) Cauda equina syndrome with neurogenic bladder Constipation Unspecified constipation Lymphedema Other lymphedema Muscle weakness (generalized) Neurogenic bowel Spina bifida of lumbar region (HCC) Spina bifida without mention of hydrocephalus, lumbar region Thoracic outlet syndrome Brachial plexus lesions Abnormality of gait S/P brain surgery Other postprocedural status Postoperative pain Other acute postoperative pain Preoperative examination- Primary Preoperative examination, unspecified Chiari malformation type I (HCC) Compression of brain Spina bifida of lumbar region without hydrocephalus (HCC) Lymphedema Other lymphedema Thoracic outlet syndrome Brachial plexus lesions Cauda equina syndrome with neurogenic bladder (HCC) Cauda equina syndrome with neurogenic bladder Neurogenic bowel Class 1 obesity with serious comorbidity and body mass index (BMI) of 33.0 to 33.9 in adult, unspecified obesity type Chiari I malformation (HCC)- Primary Compression of brain documented in this encounter [facility] note* Diagnosis Chiari malformation type I (HCC)- Primary Compression of brain Postoperative pain Other acute postoperative pain Obesity, Class I, BMI 30-34.9 Obesity, unspecified Cauda equina syndrome with neurogenic bladder (HCC) Cauda equina syndrome with neurogenic bladder Constipation Unspecified constipation Lymphedema Other lymphedema Muscle weakness (generalized) Neurogenic bowel Spina bifida of lumbar region (HCC) Spina bifida without mention of hydrocephalus, lumbar region Thoracic outlet syndrome Brachial plexus lesions Abnormality of gait S/P brain surgery Other postprocedural status Postoperative pain Other acute postoperative pain Preoperative examination- Primary Preoperative examination, unspecified Chiari malformation type I (HCC) Compression of brain Spina bifida of lumbar region without hydrocephalus (HCC) Lymphedema Other lymphedema Thoracic outlet syndrome Brachial plexus lesions Cauda equina syndrome with neurogenic bladder (HCC) Cauda equina syndrome with neurogenic bladder Neurogenic bowel Class 1 obesity with serious comorbidity and body mass index (BMI) of 33.0 to 33.9 in adult, unspecified obesity type Subacute cough- Primary Cough SOB (shortness of breath) Shortness of breath Pleuritic pain Painful respiration documented in this encounter [facility] note* Diagnosis Chiari malformation type I (HCC)- Primary Compression of brain Postoperative pain Other acute postoperative pain Obesity, Class I, BMI 30-34.9 Obesity, unspecified Cauda equina syndrome with neurogenic bladder (HCC) Cauda equina syndrome with neurogenic bladder Constipation Unspecified constipation Lymphedema Other lymphedema Muscle weakness (generalized) Neurogenic bowel Spina bifida of lumbar region (HCC) Spina bifida without mention of hydrocephalus, lumbar region Thoracic outlet syndrome Brachial plexus lesions Abnormality of gait S/P brain surgery Other postprocedural status Postoperative pain Other acute postoperative pain Preoperative examination- Primary Preoperative examination, unspecified Chiari malformation type I (HCC) Compression of brain Spina bifida of lumbar region without hydrocephalus (HCC) Lymphedema Other lymphedema Thoracic outlet syndrome Brachial plexus lesions Cauda equina syndrome with neurogenic bladder (HCC) Cauda equina syndrome with neurogenic bladder Neurogenic bowel Class 1 obesity with serious comorbidity and body mass index (BMI) of 33.0 to 33.9 in adult, unspecified obesity type Acute otitis media, right- Primary Unspecified otitis media documented in this encounter [facility] note* Diagnosis Chiari malformation type I (HCC)- Primary Compression of brain Postoperative pain Other acute postoperative pain Obesity, Class I, BMI 30-34.9 Obesity, unspecified Cauda equina syndrome with neurogenic bladder (HCC) Cauda equina syndrome with neurogenic bladder Constipation Unspecified constipation Lymphedema Other lymphedema Muscle weakness (generalized) Neurogenic bowel Spina bifida of lumbar region (HCC) Spina bifida without mention of hydrocephalus, lumbar region Thoracic outlet syndrome Brachial plexus lesions Abnormality of gait S/P brain surgery Other postprocedural status Postoperative pain Other acute postoperative pain Preoperative examination- Primary Preoperative examination, unspecified Chiari malformation type I (HCC) Compression of brain Spina bifida of lumbar region without hydrocephalus (HCC) Lymphedema Other lymphedema Thoracic outlet syndrome Brachial plexus lesions Cauda equina syndrome with neurogenic bladder (HCC) Cauda equina syndrome with neurogenic bladder Neurogenic bowel Class 1 obesity with serious comorbidity and body mass index (BMI) of 33.0 to 33.9 in adult, unspecified obesity type Dysuria- Primary Acute cystitis without hematuria Acute cystitis documented in this encounter [facility] note* Diagnosis Chiari malformation type I (HCC)- Primary Compression of brain Postoperative pain Other acute postoperative pain Obesity, Class I, BMI 30-34.9 Obesity, unspecified Cauda equina syndrome with neurogenic bladder (HCC) Cauda equina syndrome with neurogenic bladder Constipation Unspecified constipation Lymphedema Other lymphedema Muscle weakness (generalized) Neurogenic bowel Spina bifida of lumbar region (HCC) Spina bifida without mention of hydrocephalus, lumbar region Thoracic outlet syndrome Brachial plexus lesions Abnormality of gait S/P brain surgery Other postprocedural status Postoperative pain Other acute postoperative pain Preoperative examination- Primary Preoperative examination, unspecified Chiari malformation type I (HCC) Compression of brain Spina bifida of lumbar region without hydrocephalus (HCC) Lymphedema Other lymphedema Thoracic outlet syndrome Brachial plexus lesions Cauda equina syndrome with neurogenic bladder (HCC) Cauda equina syndrome with neurogenic bladder Neurogenic bowel Class 1 obesity with serious comorbidity and body mass index (BMI) of 33.0 to 33.9 in adult, unspecified obesity type Recurrent UTI (urinary tract infection)- Primary Urinary tract infection, site not specified Dysmenorrhea Class 1 obesity with body mass index (BMI) of 33.0 to 33.9 in adult, unspecified obesity type, unspecified whether serious comorbidity present Spina bifida of lumbar region without hydrocephalus (HCC) Chiari malformation type I (HCC) Compression of brain S/P brain surgery Other postprocedural status Neurogenic bladder Neurogenic bladder, NOS documented in this encounter [facility] note* Diagnosis Chiari malformation type I (HCC)- Primary Compression of brain Postoperative pain Other acute postoperative pain Obesity, Class I, BMI 30-34.9 Obesity, unspecified Cauda equina syndrome with neurogenic bladder (HCC) Cauda equina syndrome with neurogenic bladder Constipation Unspecified constipation Lymphedema Other lymphedema Muscle weakness (generalized) Neurogenic bowel Spina bifida of lumbar region (HCC) Spina bifida without mention of hydrocephalus, lumbar region Thoracic outlet syndrome Brachial plexus lesions Abnormality of gait S/P brain surgery Other postprocedural status Postoperative pain Other acute postoperative pain Preoperative examination- Primary Preoperative examination, unspecified Chiari malformation type I (HCC) Compression of brain Spina bifida of lumbar region without hydrocephalus (HCC) Lymphedema Other lymphedema Thoracic outlet syndrome Brachial plexus lesions Cauda equina syndrome with neurogenic bladder (HCC) Cauda equina syndrome with neurogenic bladder Neurogenic bowel Class 1 obesity with serious comorbidity and body mass index (BMI) of 33.0 to 33.9 in adult, unspecified obesity type Dysmenorrhea documented in this encounter [facility] note* Diagnosis Chiari malformation type I (HCC)- Primary Compression of brain Postoperative pain Other acute postoperative pain Obesity, Class I, BMI 30-34.9 Obesity, unspecified Cauda equina syndrome with neurogenic bladder (HCC) Cauda equina syndrome with neurogenic bladder Constipation Unspecified constipation Lymphedema Other lymphedema Muscle weakness (generalized) Neurogenic bowel Spina bifida of lumbar region (HCC) Spina bifida without mention of hydrocephalus, lumbar region Thoracic outlet syndrome Brachial plexus lesions Abnormality of gait S/P brain surgery Other postprocedural status Postoperative pain Other acute postoperative pain Preoperative examination- Primary Preoperative examination, unspecified Chiari malformation type I (HCC) Compression of brain Spina bifida of lumbar region without hydrocephalus (HCC) Lymphedema Other lymphedema Thoracic outlet syndrome Brachial plexus lesions Cauda equina syndrome with neurogenic bladder (HCC) Cauda equina syndrome with neurogenic bladder Neurogenic bowel Class 1 obesity with serious comorbidity and body mass index (BMI) of 33.0 to 33.9 in adult, unspecified obesity type Cellulitis of skin- Primary Cellulitis and abscess of unspecified site [facility] Diagnosis Chiari malformation type I (HCC)- Primary Compression of brain Postoperative pain Other acute postoperative pain Obesity, Class I, BMI 30-34.9 Obesity, unspecified Cauda equina syndrome with neurogenic bladder (HCC) Cauda equina syndrome with neurogenic bladder Constipation Unspecified constipation Lymphedema Other lymphedema Muscle weakness (generalized) Neurogenic bowel Spina bifida of lumbar region (HCC) Spina bifida without mention of hydrocephalus, lumbar region Thoracic outlet syndrome Brachial plexus lesions Abnormality of gait S/P brain surgery Other postprocedural status Postoperative pain Other acute postoperative pain Preoperative examination- Primary Preoperative examination, unspecified Chiari malformation type I (HCC) Compression of brain Spina bifida of lumbar region without hydrocephalus (HCC) Lymphedema Other lymphedema Thoracic outlet syndrome Brachial plexus lesions Cauda equina syndrome with neurogenic bladder (HCC) Cauda equina syndrome with neurogenic bladder Neurogenic bowel Class 1 obesity with serious comorbidity and body mass index (BMI) of 33.0 to 33.9 in adult, unspecified obesity type Cellulitis of toe of left foot- Primary Cellulitis and abscess of toe, unspecified documented in this encounter [facility] note* Diagnosis Chiari malformation type I (HCC)- Primary Compression of brain Postoperative pain Other acute postoperative pain Obesity, Class I, BMI 30-34.9 Obesity, unspecified Cauda equina syndrome with neurogenic bladder (HCC) Cauda equina syndrome with neurogenic bladder Constipation Unspecified constipation Lymphedema Other lymphedema Muscle weakness (generalized) Neurogenic bowel Spina bifida of lumbar region (HCC) Spina bifida without mention of hydrocephalus, lumbar region Thoracic outlet syndrome Brachial plexus lesions Abnormality of gait S/P brain surgery Other postprocedural status Postoperative pain Other acute postoperative pain Preoperative examination- Primary Preoperative examination, unspecified Chiari malformation type I (HCC) Compression of brain Spina bifida of lumbar region without hydrocephalus (HCC) Lymphedema Other lymphedema Thoracic outlet syndrome Brachial plexus lesions Cauda equina syndrome with neurogenic bladder (HCC) Cauda equina syndrome with neurogenic bladder Neurogenic bowel Class 1 obesity with serious comorbidity and body mass index (BMI) of 33.0 to 33.9 in adult, unspecified obesity type Cellulitis of toe of left foot Cellulitis and abscess of toe, unspecified documented in this encounter [facility] note* Diagnosis Chiari malformation type I (HCC)- Primary Compression of brain Postoperative pain Other acute postoperative pain Obesity, Class I, BMI 30-34.9 Obesity, unspecified Cauda equina syndrome with neurogenic bladder (HCC) Cauda equina syndrome with neurogenic bladder Constipation Unspecified constipation Lymphedema Other lymphedema Muscle weakness (generalized) Neurogenic bowel Spina bifida of lumbar region (HCC) Spina bifida without mention of hydrocephalus, lumbar region Thoracic outlet syndrome Brachial plexus lesions Abnormality of gait S/P brain surgery Other postprocedural status Postoperative pain Other acute postoperative pain Preoperative examination- Primary Preoperative examination, unspecified Chiari malformation type I (HCC) Compression of brain Spina bifida of lumbar region without hydrocephalus (HCC) Lymphedema Other lymphedema Thoracic outlet syndrome Brachial plexus lesions Cauda equina syndrome with neurogenic bladder (HCC) Cauda equina syndrome with neurogenic bladder Neurogenic bowel Class 1 obesity with serious comorbidity and body mass index (BMI) of 33.0 to 33.9 in adult, unspecified obesity type Recurrent UTI (urinary tract infection)- Primary Urinary tract infection, site not specified documented in this encounter [facility] note* Diagnosis Chiari malformation type I (HCC)- Primary Compression of brain Postoperative pain Other acute postoperative pain Obesity, Class I, BMI 30-34.9 Obesity, unspecified Cauda equina syndrome with neurogenic bladder (HCC) Cauda equina syndrome with neurogenic bladder Constipation Unspecified constipation Lymphedema Other lymphedema Muscle weakness (generalized) Neurogenic bowel Spina bifida of lumbar region (HCC) Spina bifida without mention of hydrocephalus, lumbar region Thoracic outlet syndrome Brachial plexus lesions Abnormality of gait S/P brain surgery Other postprocedural status Postoperative pain Other acute postoperative pain Preoperative examination- Primary Preoperative examination, unspecified Chiari malformation type I (HCC) Compression of brain Spina bifida of lumbar region without hydrocephalus (HCC) Lymphedema Other lymphedema Thoracic outlet syndrome Brachial plexus lesions Cauda equina syndrome with neurogenic bladder (HCC) Cauda equina syndrome with neurogenic bladder Neurogenic bowel Class 1 obesity with serious comorbidity and body mass index (BMI) of 33.0 to 33.9 in adult, unspecified obesity type Cellulitis of toe of left foot- Primary Cellulitis and abscess of toe, unspecified documented in this encounter [facility] note* Diagnosis Chiari malformation type I (HCC)- Primary Compression of brain Postoperative pain Other acute postoperative pain Obesity, Class I, BMI 30-34.9 Obesity, unspecified Cauda equina syndrome with neurogenic bladder (HCC) Cauda equina syndrome with neurogenic bladder Constipation Unspecified constipation Lymphedema Other lymphedema Muscle weakness (generalized) Neurogenic bowel Spina bifida of lumbar region (HCC) Spina bifida without mention of hydrocephalus, lumbar region Thoracic outlet syndrome Brachial plexus lesions Abnormality of gait S/P brain surgery Other postprocedural status Postoperative pain Other acute postoperative pain Preoperative examination- Primary Preoperative examination, unspecified Chiari malformation type I (HCC) Compression of brain Spina bifida of lumbar region without hydrocephalus (HCC) Lymphedema Other lymphedema Thoracic outlet syndrome Brachial plexus lesions Cauda equina syndrome with neurogenic bladder (HCC) Cauda equina syndrome with neurogenic bladder Neurogenic bowel Class 1 obesity with serious comorbidity and body mass index (BMI) of 33.0 to 33.9 in adult, unspecified obesity type Cellulitis of toe of left foot- Primary Cellulitis and abscess of toe, unspecified [facility] Diagnosis Chiari malformation type I (HCC)- Primary Compression of brain Postoperative pain Other acute postoperative pain Obesity, Class I, BMI 30-34.9 Obesity, unspecified Cauda equina syndrome with neurogenic bladder (HCC) Cauda equina syndrome with neurogenic bladder Constipation Unspecified constipation Lymphedema Other lymphedema Muscle weakness (generalized) Neurogenic bowel Spina bifida of lumbar region (HCC) Spina bifida without mention of hydrocephalus, lumbar region Thoracic outlet syndrome Brachial plexus lesions Abnormality of gait S/P brain surgery Other postprocedural status Postoperative pain Other acute postoperative pain Preoperative examination- Primary Preoperative examination, unspecified Chiari malformation type I (HCC) Compression of brain Spina bifida of lumbar region without hydrocephalus (HCC) Lymphedema Other lymphedema Thoracic outlet syndrome Brachial plexus lesions Cauda equina syndrome with neurogenic bladder (HCC) Cauda equina syndrome with neurogenic bladder Neurogenic bowel Class 1 obesity with serious comorbidity and body mass index (BMI) of 33.0 to 33.9 in adult, unspecified obesity type Chiari I malformation (HCC)- Primary Compression of brain [facility] Diagnosis Chiari malformation type I (HCC)- Primary Compression of brain Postoperative pain Other acute postoperative pain Obesity, Class I, BMI 30-34.9 Obesity, unspecified Cauda equina syndrome with neurogenic bladder (HCC) Cauda equina syndrome with neurogenic bladder Constipation Unspecified constipation Lymphedema Other lymphedema Muscle weakness (generalized) Neurogenic bowel Spina bifida of lumbar region (HCC) Spina bifida without mention of hydrocephalus, lumbar region Thoracic outlet syndrome Brachial plexus lesions Abnormality of gait S/P brain surgery Other postprocedural status Postoperative pain Other acute postoperative pain Preoperative examination- Primary Preoperative examination, unspecified Chiari malformation type I (HCC) Compression of brain Spina bifida of lumbar region without hydrocephalus (HCC) Lymphedema Other lymphedema Thoracic outlet syndrome Brachial plexus lesions Cauda equina syndrome with neurogenic bladder (HCC) Cauda equina syndrome with neurogenic bladder Neurogenic bowel Class 1 obesity with serious comorbidity and body mass index (BMI) of 33.0 to 33.9 in adult, unspecified obesity type Recurrent UTI (urinary tract infection)- Primary Urinary tract infection, site not specified Urinary problem Other urinary problems * Assessment & Plan Note - Aidan Bains Jr., APRN.CNP - 09/10/2024 6:40 PM EDTAssociated Problem(s): Recurrent UTI (urinary tract infection) Based on examination I diagnosed patient with a urinary tract infection. I also ordered a urine culture due to her self cathing to make sure that we are addressing the proper organism. I did prescribe her Macrobid and Pyridium. Orders: nitrofurantoin monohydrate and macrocrystal (MACROBID) 100 mg capsule; Take 1 capsule by mouth two times a day for 5 days. phenazopyridine (PYRIDIUM) 200 mg tablet; Take 1 tablet by mouth three times a day as needed for upto 2 days. [facility] Diagnosis Chiari malformation type I (HCC)- Primary Compression of brain Postoperative pain Other acute postoperative pain Obesity, Class I, BMI 30-34.9 Obesity, unspecified Cauda equina syndrome with neurogenic bladder (HCC) Cauda equina syndrome with neurogenic bladder Constipation Unspecified constipation Lymphedema Other lymphedema Muscle weakness (generalized) Neurogenic bowel Spina bifida of lumbar region (HCC) Spina bifida without mention of hydrocephalus, lumbar region Thoracic outlet syndrome Brachial plexus lesions Abnormality of gait S/P brain surgery Other postprocedural status Postoperative pain Other acute postoperative pain Preoperative examination- Primary Preoperative examination, unspecified Chiari malformation type I (HCC) Compression of brain Spina bifida of lumbar region without hydrocephalus (HCC) Lymphedema Other lymphedema Thoracic outlet syndrome Brachial plexus lesions Cauda equina syndrome with neurogenic bladder (HCC) Cauda equina syndrome with neurogenic bladder Neurogenic bowel Class 1 obesity with serious comorbidity and body mass index (BMI) of 33.0 to 33.9 in adult, unspecified obesity type Recurrent UTI (urinary tract infection)- Primary Urinary tract infection, site not specified Urinary problem Other urinary problems Recurrent UTI (urinary tract infection)- Primary Urinary tract infection, site not specified Urinary problem Other urinary problems * Assessment & Plan Note - Aidan Bains Jr., APRN.CNP - 09/27/2024 5:46 PM EDTAssociated Problem(s): Recurrent UTI (urinary tract infection) Based on examination I diagnosed patient with a recurrent UTI infection. Patient was previously treated here when asked patient stated she had about 6 UTIs since the beginning of the year. I feel that further evaluation is needed I recommended follow-up with the urologist. Patient stated she is trying to find a urologist to go to. She has an appointment with her primary care physician in 2 weeks and stated she would bring the subject up with them. Due to patient's self cathing to make sure thatthis is a simple UTI I did order another urine culture. Base further treatment on results of culture and sensitivity when received. Orders: cephALEXin (KEFLEX) 500 mg capsule; Take 1 capsule by mouth four times daily for 7 days. BACTERIAL CULTURE, URINE phenazopyridine (PYRIDIUM) 200 mg tablet; Take 1 tablet by mouth three times a day as needed for pain for up to 3 days. [facility] Diagnosis Chiari malformation type I (HCC)- Primary Compression of brain Postoperative pain Other acute postoperative pain Obesity, Class I, BMI 30-34.9 Obesity, unspecified Cauda equina syndrome with neurogenic bladder (HCC) Cauda equina syndrome with neurogenic bladder Constipation Unspecified constipation Lymphedema Other lymphedema Muscle weakness (generalized) Neurogenic bowel Spina bifida of lumbar region (HCC) Spina bifida without mention of hydrocephalus, lumbar region Thoracic outlet syndrome Brachial plexus lesions Abnormality of gait S/P brain surgery Other postprocedural status Postoperative pain Other acute postoperative pain Preoperative examination- Primary Preoperative examination, unspecified Chiari malformation type I (HCC) Compression of brain Spina bifida of lumbar region without hydrocephalus (HCC) Lymphedema Other lymphedema Thoracic outlet syndrome Brachial plexus lesions Cauda equina syndrome with neurogenic bladder (HCC) Cauda equina syndrome with neurogenic bladder Neurogenic bowel Class 1 obesity with serious comorbidity and body mass index (BMI) of 33.0 to 33.9 in adult, unspecified obesity type Recurrent UTI (urinary tract infection)- Primary Urinary tract infection, site not specified Urinary problem Other urinary problems Spina bifida of lumbar region without hydrocephalus (HCC)- Primary Abnormality of gait Recurrent UTI (urinary tract infection)- Primary Urinary tract infection, site not specified Urinary problem Other urinary problems [facility] Diagnosis Chiari malformation type I (HCC)- Primary Compression of brain Postoperative pain Other acute postoperative pain Obesity, Class I, BMI 30-34.9 Obesity, unspecified Cauda equina syndrome with neurogenic bladder (HCC) Cauda equina syndrome with neurogenic bladder Constipation Unspecified constipation Lymphedema Other lymphedema Muscle weakness (generalized) Neurogenic bowel Spina bifida of lumbar region (HCC) Spina bifida without mention of hydrocephalus, lumbar region Thoracic outlet syndrome Brachial plexus lesions Abnormality of gait S/P brain surgery Other postprocedural status Postoperative pain Other acute postoperative pain Preoperative examination- Primary Preoperative examination, unspecified Chiari malformation type I (HCC) Compression of brain Spina bifida of lumbar region without hydrocephalus (HCC) Lymphedema Other lymphedema Thoracic outlet syndrome Brachial plexus lesions Cauda equina syndrome with neurogenic bladder (HCC) Cauda equina syndrome with neurogenic bladder Neurogenic bowel Class 1 obesity with serious comorbidity and body mass index (BMI) of 33.0 to 33.9 in adult, unspecified obesity type Recurrent UTI (urinary tract infection)- Primary Urinary tract infection, site not specified Urinary problem Other urinary problems Recurrent UTI (urinary tract infection)- Primary Urinary tract infection, site not specified Urinary problem Other urinary problems Recurrent UTI (urinary tract infection)- Primary Urinary tract infection, site not specified Urinary frequency documented in this encounter [facility] note* Diagnosis Chiari malformation type I (HCC)- Primary Compression of brain Postoperative pain Other acute postoperative pain Obesity, Class I, BMI 30-34.9 Obesity, unspecified Cauda equina syndrome with neurogenic bladder (HCC) Cauda equina syndrome with neurogenic bladder Constipation Unspecified constipation Lymphedema Other lymphedema Muscle weakness (generalized) Neurogenic bowel Spina bifida of lumbar region (HCC) Spina bifida without mention of hydrocephalus, lumbar region Thoracic outlet syndrome Brachial plexus lesions Abnormality of gait S/P brain surgery Other postprocedural status Postoperative pain Other acute postoperative pain Preoperative examination- Primary Preoperative examination, unspecified Chiari malformation type I (HCC) Compression of brain Spina bifida of lumbar region without hydrocephalus (HCC) Lymphedema Other lymphedema Thoracic outlet syndrome Brachial plexus lesions Cauda equina syndrome with neurogenic bladder (HCC) Cauda equina syndrome with neurogenic bladder Neurogenic bowel Class 1 obesity with serious comorbidity and body mass index (BMI) of 33.0 to 33.9 in adult, unspecified obesity type Recurrent UTI (urinary tract infection)- Primary Urinary tract infection, site not specified Urinary problem Other urinary problems Recurrent UTI (urinary tract infection)- Primary Urinary tract infection, site not specified Urinary problem Other urinary problems Chiari I malformation (HCC)- Primary Compression of brain [facility] Diagnosis Chiari malformation type I (HCC)- Primary Compression of brain Postoperative pain Other acute postoperative pain Obesity, Class I, BMI 30-34.9 Obesity, unspecified Cauda equina syndrome with neurogenic bladder (HCC) Cauda equina syndrome with neurogenic bladder Constipation Unspecified constipation Lymphedema Other lymphedema Muscle weakness (generalized) Neurogenic bowel Spina bifida of lumbar region (HCC) Spina bifida without mention of hydrocephalus, lumbar region Thoracic outlet syndrome Brachial plexus lesions Abnormality of gait S/P brain surgery Other postprocedural status Postoperative pain Other acute postoperative pain Preoperative examination- Primary Preoperative examination, unspecified Chiari malformation type I (HCC) Compression of brain Spina bifida of lumbar region without hydrocephalus (HCC) Lymphedema Other lymphedema Thoracic outlet syndrome Brachial plexus lesions Cauda equina syndrome with neurogenic bladder (HCC) Cauda equina syndrome with neurogenic bladder Neurogenic bowel Class 1 obesity with serious comorbidity and body mass index (BMI) of 33.0 to 33.9 in adult, unspecified obesity type Recurrent UTI (urinary tract infection)- Primary Urinary tract infection, site not specified Urinary problem Other urinary problems Recurrent UTI (urinary tract infection)- Primary Urinary tract infection, site not specified Urinary problem Other urinary problems Neurogenic bladder- Primary Neurogenic bladder, NOS Neurogenic bowel Recurrent UTI Urinary tract infection, site not specified Cauda equina syndrome with neurogenic bladder (HCC) Cauda equina syndrome with neurogenic bladder Chiari malformation type I (HCC) Compression of brain Constipation, unspecified constipation type [facility] Diagnosis Chiari malformation type I (HCC)- Primary Compression of brain Postoperative pain Other acute postoperative pain Obesity, Class I, BMI 30-34.9 Obesity, unspecified Cauda equina syndrome with neurogenic bladder (HCC) Cauda equina syndrome with neurogenic bladder Constipation Unspecified constipation Lymphedema Other lymphedema Muscle weakness (generalized) Neurogenic bowel Spina bifida of lumbar region (HCC) Spina bifida without mention of hydrocephalus, lumbar region Thoracic outlet syndrome Brachial plexus lesions Abnormality of gait S/P brain surgery Other postprocedural status Postoperative pain Other acute postoperative pain Preoperative examination- Primary Preoperative examination, unspecified Chiari malformation type I (HCC) Compression of brain Spina bifida of lumbar region without hydrocephalus (HCC) Lymphedema Other lymphedema Thoracic outlet syndrome Brachial plexus lesions Cauda equina syndrome with neurogenic bladder (HCC) Cauda equina syndrome with neurogenic bladder Neurogenic bowel Class 1 obesity with serious comorbidity and body mass index (BMI) of 33.0 to 33.9 in adult, unspecified obesity type Recurrent UTI (urinary tract infection)- Primary Urinary tract infection, site not specified Urinary problem Other urinary problems Recurrent UTI (urinary tract infection)- Primary Urinary tract infection, site not specified Urinary problem Other urinary problems Spina bifida without hydrocephalus, unspecified spinal region (HCC) Neurogenic bowel Chronic constipation Unspecified constipation Class 1 obesity with body mass index (BMI) of 30.0 to 30.9 in adult, unspecified obesity type, unspecified whether serious comorbidity present [facility] Diagnosis Chiari malformation type I (HCC)- Primary Compression of brain Postoperative pain Other acute postoperative pain Obesity, Class I, BMI 30-34.9 Obesity, unspecified Cauda equina syndrome with neurogenic bladder (HCC) Cauda equina syndrome with neurogenic bladder Constipation Unspecified constipation Lymphedema Other lymphedema Muscle weakness (generalized) Neurogenic bowel Spina bifida of lumbar region (HCC) Spina bifida without mention of hydrocephalus, lumbar region Thoracic outlet syndrome Brachial plexus lesions Abnormality of gait S/P brain surgery Other postprocedural status Postoperative pain Other acute postoperative pain Preoperative examination- Primary Preoperative examination, unspecified Chiari malformation type I (HCC) Compression of brain Spina bifida of lumbar region without hydrocephalus (HCC) Lymphedema Other lymphedema Thoracic outlet syndrome Brachial plexus lesions Cauda equina syndrome with neurogenic bladder (HCC) Cauda equina syndrome with neurogenic bladder Neurogenic bowel Class 1 obesity with serious comorbidity and body mass index (BMI) of 33.0 to 33.9 in adult, unspecified obesity type Recurrent UTI (urinary tract infection)- Primary Urinary tract infection, site not specified Urinary problem Other urinary problems Recurrent UTI (urinary tract infection)- Primary Urinary tract infection, site not specified Urinary problem Other urinary problems Spina bifida without hydrocephalus, unspecified spinal region (HCC)- Primary Spina bifida without hydrocephalus, unspecified spinal region (HCC) documented in this encounter [facility]* Diagnosis Chiari malformation type I (HCC)- Primary Compression of brain Postoperative pain Other acute postoperative pain Obesity, Class I, BMI 30-34.9 Obesity, unspecified Cauda equina syndrome with neurogenic bladder (HCC) Cauda equina syndrome with neurogenic bladder Constipation Unspecified constipation Lymphedema Other lymphedema Muscle weakness (generalized) Neurogenic bowel Spina bifida of lumbar region (HCC) Spina bifida without mention of hydrocephalus, lumbar region Thoracic outlet syndrome Brachial plexus lesions Abnormality of gait S/P brain surgery Other postprocedural status Postoperative pain Other acute postoperative pain Preoperative examination- Primary Preoperative examination, unspecified Chiari malformation type I (HCC) Compression of brain Spina bifida of lumbar region without hydrocephalus (HCC) Lymphedema Other lymphedema Thoracic outlet syndrome Brachial plexus lesions Cauda equina syndrome with neurogenic bladder (HCC) Cauda equina syndrome with neurogenic bladder Neurogenic bowel Class 1 obesity with serious comorbidity and body mass index (BMI) of 33.0 to 33.9 in adult, unspecified obesity type Recurrent UTI (urinary tract infection)- Primary Urinary tract infection, site not specified Urinary problem Other urinary problems Recurrent UTI (urinary tract infection)- Primary Urinary tract infection, site not specified Urinary problem Other urinary problems Suspected UTI- Primary Spina bifida without hydrocephalus, unspecified spinal region (HCC) documented in this encounter [facility] note* Diagnosis Chiari malformation type I (HCC)- Primary Compression of brain Postoperative pain Other acute postoperative pain Obesity, Class I, BMI 30-34.9 Obesity, unspecified Cauda equina syndrome with neurogenic bladder (HCC) Cauda equina syndrome with neurogenic bladder Constipation Unspecified constipation Lymphedema Other lymphedema Muscle weakness (generalized) Neurogenic bowel Spina bifida of lumbar region (HCC) Spina bifida without mention of hydrocephalus, lumbar region Thoracic outlet syndrome Brachial plexus lesions Abnormality of gait S/P brain surgery Other postprocedural status Postoperative pain Other acute postoperative pain Preoperative examination- Primary Preoperative examination, unspecified Chiari malformation type I (HCC) Compression of brain Spina bifida of lumbar region without hydrocephalus (HCC) Lymphedema Other lymphedema Thoracic outlet syndrome Brachial plexus lesions Cauda equina syndrome with neurogenic bladder (HCC) Cauda equina syndrome with neurogenic bladder Neurogenic bowel Class 1 obesity with serious comorbidity and body mass index (BMI) of 33.0 to 33.9 in adult, unspecified obesity type Recurrent UTI (urinary tract infection)- Primary Urinary tract infection, site not specified Urinary problem Other urinary problems Recurrent UTI (urinary tract infection)- Primary Urinary tract infection, site not specified Urinary problem Other urinary problems Rash- Primary Rash and other nonspecific skin eruption Urticaria Urticaria, unspecified Spina bifida without hydrocephalus, unspecified spinal region (HCC) [facility] Diagnosis Chiari malformation type I (HCC)- Primary Compression of brain Postoperative pain Other acute postoperative pain Obesity, Class I, BMI 30-34.9 Obesity, unspecified Cauda equina syndrome with neurogenic bladder (HCC) Cauda equina syndrome with neurogenic bladder Constipation Unspecified constipation Lymphedema Other lymphedema Muscle weakness (generalized) Neurogenic bowel Spina bifida of lumbar region (HCC) Spina bifida without mention of hydrocephalus, lumbar region Thoracic outlet syndrome Brachial plexus lesions Abnormality of gait S/P brain surgery Other postprocedural status Postoperative pain Other acute postoperative pain Preoperative examination- Primary Preoperative examination, unspecified Chiari malformation type I (HCC) Compression of brain Spina bifida of lumbar region without hydrocephalus (HCC) Lymphedema Other lymphedema Thoracic outlet syndrome Brachial plexus lesions Cauda equina syndrome with neurogenic bladder (HCC) Cauda equina syndrome with neurogenic bladder Neurogenic bowel Class 1 obesity with serious comorbidity and body mass index (BMI) of 33.0 to 33.9 in adult, unspecified obesity type Recurrent UTI (urinary tract infection)- Primary Urinary tract infection, site not specified Urinary problem Other urinary problems Recurrent UTI (urinary tract infection)- Primary Urinary tract infection, site not specified Urinary problem Other urinary problems Spina bifida, unspecified hydrocephalus presence, unspecified spinal region (HCC) Cystic fibrosis (HCC) Cystic fibrosis without mention of meconium ileus Chronic constipation Unspecified constipation Spina bifida without hydrocephalus, unspecified spinal region (HCC) documented in this encounter [facility] note* Diagnosis Chiari malformation type I (HCC)- Primary Compression of brain Postoperative pain Other acute postoperative pain Obesity, Class I, BMI 30-34.9 Obesity, unspecified Cauda equina syndrome with neurogenic bladder (HCC) Cauda equina syndrome with neurogenic bladder Constipation Unspecified constipation Lymphedema Other lymphedema Muscle weakness (generalized) Neurogenic bowel Spina bifida of lumbar region (HCC) Spina bifida without mention of hydrocephalus, lumbar region Thoracic outlet syndrome Brachial plexus lesions Abnormality of gait S/P brain surgery Other postprocedural status Postoperative pain Other acute postoperative pain Preoperative examination- Primary Preoperative examination, unspecified Chiari malformation type I (HCC) Compression of brain Spina bifida of lumbar region without hydrocephalus (HCC) Lymphedema Other lymphedema Thoracic outlet syndrome Brachial plexus lesions Cauda equina syndrome with neurogenic bladder (HCC) Cauda equina syndrome with neurogenic bladder Neurogenic bowel Class 1 obesity with serious comorbidity and body mass index (BMI) of 33.0 to 33.9 in adult, unspecified obesity type Recurrent UTI (urinary tract infection)- Primary Urinary tract infection, site not specified Urinary problem Other urinary problems Recurrent UTI (urinary tract infection)- Primary Urinary tract infection, site not specified Urinary problem Other urinary problems Urinary frequency- Primary Spina bifida without hydrocephalus, unspecified spinal region (HCC) documented in this encounter [facility] note* Diagnosis Chiari malformation type I (HCC)- Primary Compression of brain Postoperative pain Other acute postoperative pain Obesity, Class I, BMI 30-34.9 Obesity, unspecified Cauda equina syndrome with neurogenic bladder (HCC) Cauda equina syndrome with neurogenic bladder Constipation Unspecified constipation Lymphedema Other lymphedema Muscle weakness (generalized) Neurogenic bowel Spina bifida of lumbar region (HCC) Spina bifida without mention of hydrocephalus, lumbar region Thoracic outlet syndrome Brachial plexus lesions Abnormality of gait S/P brain surgery Other postprocedural status Postoperative pain Other acute postoperative pain Preoperative examination- Primary Preoperative examination, unspecified Chiari malformation type I (HCC) Compression of brain Spina bifida of lumbar region without hydrocephalus (HCC) Lymphedema Other lymphedema Thoracic outlet syndrome Brachial plexus lesions Cauda equina syndrome with neurogenic bladder (HCC) Cauda equina syndrome with neurogenic bladder Neurogenic bowel Class 1 obesity with serious comorbidity and body mass index (BMI) of 33.0 to 33.9 in adult, unspecified obesity type Recurrent UTI (urinary tract infection)- Primary Urinary tract infection, site not specified Urinary problem Other urinary problems Recurrent UTI (urinary tract infection)- Primary Urinary tract infection, site not specified Urinary problem Other urinary problems Spina bifida, unspecified hydrocephalus presence, unspecified spinal region (HCC)- Primary Neurogenic bowel Spina bifida without hydrocephalus, unspecified spinal region (HCC) documented in this encounter [facility] for referral (narrative)* Outpatient Procedure (Routine) - Authorized Specialty Diagnoses / Procedures Referred By Dede underwood Referred To Contact [facility] Diagnoses Encounter for initial prescription of intrauterine contraceptive device (IUD) Encounter for insertion of intrauterine contraceptive device Encounter for removal of intrauterine contraceptive device Procedures INSERT INTRAUTERINE DEVICE LEVONORGESTREL IU 52MG 5 YR INSERT INTRAUTERINE DEVICE REMOVE INTRAUTERINE DEVICE Jocy Hinds MD [address] [place] [id number] [facility] [address] [place] [id number] Referral ID Status Reason Start Date Expiration Date Visits Requested Visits Authorized [id number] Authorized Auto-Generat ed Referral 11/16/2021 07/02/2022 2 2 [facility] for referral (narrative)* Diagnostic Procedure Only (Routine) - Closed Specialty Diagnoses / Procedures Referred By Dede underwood Referred To Contact XR IMAGING Diagnoses Pain Procedures XR KNEE GENERAL 4V AP BOTH/PA BOTH/LAT/JAVIER BILAT KNEE AP-WGT/LAT/Obey Underwood MD [address] [place] [address] Xr Imaging [facility] Referral ID Status Reason Start Date Expiration Date V isits Requested Visits Authorized [id number] Closed Auto-Generate d Referral 04/12/2021 05/12/2022 1 1 [facility] for referral (narrative)* Diagnostic Procedure Only (Routine) - Authorized Specialty Diagnoses / Procedures Referred By Contac t Referred To Contact US IMAGING Diagnoses Dysmenorrhea Procedures US FEMALE PELVIS TRANSABD LTD US PELVIC NONOBSTETRIC IMAGE DCMTN LIMITED/F/U Juan Manuel Antonio, DO [address] [place] [address] [place] [address] Referral ID Status Reason Start Date Expiration Date Visits Requested Visits Authorized [id number] Authorized Auto-Generat ed Referral 07/15/2024 08/14/2025 1 1 * Diagnostic Procedure Only (Routine) - Authorized Specialty Diagnoses / Procedures Referred By Contac t Referred To Contact US IMAGING Diagnoses Dysmenorrhea Procedures US FEMALE PELVIS TRANSVAG US TRANSVAGINAL Juan Manuel Antonio DO [address] [place] [address] [place] [address] Referral ID Status Reason Start Date Expiration Date Visits Requested Visits Authorized [id number] Authorized Auto-Generat ed Referral 07/15/2024 08/14/2025 1 1 [facility] for referral (narrative)* Diagnostic Procedure Only (Routine) - Closed Specialty Diagnoses / Procedures Referred By Contac t Referred To Contact US IMAGING Diagnoses Dysmenorrhea Procedures US FEMALE PELVIS TRANSABD LTD US PELVIC NONOBSTETRIC IMAGE DCMTN LIMITED/F/U Juan Manuel Antonio DO [address] [place] [address] [place] [address] Referral ID Status Reason Start Date Expiration Date V isits Requested Visits Authorized [id number] Closed Auto-Generate d Referral 07/15/2024 08/14/2025 1 1 * Diagnostic Procedure Only (Routine) - Closed Specialty Diagnoses / Procedures Referred By Contac t Referred To Contact US IMAGING Diagnoses Dysmenorrhea Procedures US FEMALE PELVIS TRANSVAG US TRANSVAGINAL Juan Manuel Antonio DO [address] [place] [address] [place] [address] Referral ID Status Reason Start Date Expiration Date V isits Requested Visits Authorized [id number] Closed Auto-Generate d Referral 07/15/2024 08/14/2025 1 1 [facility] for referral (narrative)* Diagnostic Procedure Only (Routine) - Closed Specialty Diagnoses / Procedures Referred By Contac t Referred To Contact XR IMAGING Diagnoses Cellulitis of toe of left foot Procedures XR FOOT GENERAL 3V AP/LAT/OBL LEFT RADEX FOOT COMPLETE MINIMUM 3 VIEWS Caitlin Curtis, RN CLINICAL.SIGNAL INSPECTOR [address] [place] [address] [place] [address] Referral ID Status Reason Start Date Expiration Date V isits Requested Visits Authorized [id number] Closed Auto-Generate d Referral 07/29/2024 08/28/2025 1 1 [facility] for referral (narrative)No reason for referral information availableWM[facility] Work Phone: Reason for visit Narrative* Diagnostic Procedure Only (Routine) - Closed Specialty Diagnoses / Procedures Referred By Contac t Referred To Contact XR IMAGING Diagnoses Pain Procedures XR KNEE GENERAL 4V AP BOTH/PA BOTH/LAT/MERC BILAT KNEE AP-WGT/LAT/MERCHANT Obey Figueroa MD [address] [facility] [place] [phone] [place] [address] Referral ID Status Reason Start Date Expiration Date V isits Requested Visits Authorized [id number] Closed Auto-Generate d Referral 04/12/2021 05/12/2022 1 1 [facility] for visit Narrative* Diagnostic Procedure Only (Routine) - Closed Specialty Diagnoses / Procedures Referred By Contac t Referred To Contact XR IMAGING Diagnoses Cellulitis of toe of left foot Procedures XR FOOT GENERAL 3V AP/LAT/OBL LEFT RADEX FOOT COMPLETE MINIMUM 3 VIEWS Caitlin Curtis, RN CLINICAL.SIGNAL INSPECTOR [address] [place] [address] [place] [address] Referral ID Status Reason Start Date Expiration Date V isits Requested Visits Authorized [id number] Closed Auto-Generate d Referral 07/29/2024 08/28/2025 1 1 [facility] Summary Purpose Family History No Family History Records FoundUnknown Family Member Name Dates Details Family history of kidney sto senthil(V18.69, Z84.1) Comments:Unknown Status:Active Advance Directives No Advanced Directives Records FoundDocuments on File Type Date Recorded 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 Advance Directive(s) 06/16/2020 11:35 AM Advance Directive(s) 10/24/2017 10:48 AM Advance Directive(s) 10/13/2017 12:03 PM Documents on File Type Date Recorded 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 Advance Directive(s) 06/16/2020 11:35 AM Advance Directive(s) 10/24/2017 10:48 AM Advance Directive(s) 10/13/2017 12:03 PM Reason for Referral Specialty Diagnoses / Procedures Referred By Contac t Referred To Contact MR IMAGING Diagnoses Chiari I malformation (HCC) Procedures MRI CERVICAL SPINE WO IVCON MRI SPINAL CANAL CERVICAL W/O CONTRAST MATRL Alecia Gallegos PA-C [address] [place] [id number] Mr Imaging Referral ID Status Reason Start Date Expiration Date Visits Requested Visits Authorized [id number] Pending Review Auto-Generat ed Referral 03/29/2022 04/28/2023 1 1 Specialty Diagnoses / Procedures Referred By Contac t Referred To Contact MR IMAGING Diagnoses Chiari I malformation (HCC) Procedures MRI BRAIN WO IVCON MRI BRAIN BRAIN STEM W/O CONTRAST MATERIAL Alecia Gallegos PA-C [address] [place] [address] Mr Imaging [facility] Referral ID Status Reason Start Date Expiration Date Visits Requested Visits Authorized [id number] Pending Review Auto-Generat ed Referral 03/24/2023 04/22/2024 1 1 Specialty Diagnoses / Procedures Referred By Contac t Referred To Contact MR IMAGING Diagnoses Chiari I malformation (HCC) Procedures MRI CERVICAL SPINE WO IVCON MRI SPINAL CANAL CERVICAL W/O CONTRAST MATRL Alecia Gallegos PA-C [address] [place] [phone] Mr Imaging [place] [address] Referral ID Status Reason Start Date Expiration Date V isits Requested Visits Authorized [id number] Closed Auto-Generate d Referral 06/15/2022 07/02/2022 1 1 Specialty Diagnoses / Procedures Referred By Contac t Referred To Contact Diagnoses Chiari malformation type I (HCC) Preop testing Procedures REFER TO PACC - PRE ANESTHESIA CONSULTATION CLINIC OFFICE/OUTPATIENT NEW HIGH MDM 60 MINUTES Alecia Gallegos PA-C [address] [place] [address] Referral ID Status Reason Start Date Expiration Date Visits Requested Visits Authorized [id number] Authorized PCP Requested Referral 11/15/2023 11/14/2024 1 1 Referral ID Status Reason Start Date Expiration Date Visits Requested Visits Authorized [id number] Pending Review Auto-Generat ed Referral 11/29/2023 12/14/2024 1 1 Referral ID Status Reason Start Date Expiration Date Visits Requested Visits Authorized [id number] New Request Auto-Generat ed Referral 01/26/2024 02/24/2025 1 1 Specialty Diagnoses / Procedures Referred By Contac t Referred To Contact [facility] Diagnoses Chiari malformation type I (HCC) Procedures CONSULT TO PHYSICAL THERAPY PHYSICAL THERAPY EVALUATION HIGH COMPLEX 45 MINS Alecia Gallegos PA-C [address] [place] [address] [facility] [address] [place] [address] Referral ID Status Reason Start Date Expiration Date Visits Requested Visits Authorized [id number] Pending Review Auto-Generat ed Referral 01/26/2024 01/25/2025 1 1 Referral ID Status Reason Start Date Expiration Date V isits Requested Visits Authorized [id number] Closed Auto-Generate d Referral 11/29/2023 12/14/2024 1 1 Referral ID Status Reason Start Date Expiration Date V isits Requested Visits Authorized [id number] Closed Auto-Generate d Referral 01/26/2024 02/24/2025 1 1 Referral ID Status Reason Start Date Expiration Date Visits Requested Visits Authorized [id number] New Request Auto-Generat ed Referral 06/04/2024 07/04/2025 1 1 Specialty Diagnoses / Procedures Referred By Contac t Referred To Contact CT IMAGING Diagnoses Subacute cough SOB (shortness of breath) Pleuritic pain Procedures CT CHEST W IVCON DIAGNOSTIC COMPUTED TOMOGRAPHY THORAX W/CONTRAST Caitlin Curtis, RN CLINICAL.SIGNAL INSPECTOR [address] [place] [address] [place] [address] Referral ID Status Reason Start Date Expiration Date Visits Requested Visits Authorized [id number] Authorized Auto-Generat ed Referral 07/17/2025 1 1 Health Concerns Infection Onset Date Last Indicated Resolved Time COVID-19 Rule-Out 06/19/2022 06/19/2022 Infection Onset Date Last Indicated Resolved Time COVID-19 Rule-Out 06/19/2022 06/19/2022 06/20/2022 3:27 AM EST Infection Onset Date Last Indicated Resolved Time COVID-19 Rule-Out 06/27/2022 06/27/2022 06/28/2022 4:53 AM EST COVID-19 Confirmed 06/27/2022 06/27/2022 Chief Complaint and Reason for Visit Chief Complaint Admit Date Spinal Bifida June 17, 2024 7:59am constipation June 22, 2024 8:15am EORDER- ABDOMEN-BLAOTING June 24, 2024 9:17am ABD PAIN, BOWEL OBSTRUCTION R/T RETRACTO N OF STOMA July 22, 2024 11:41am BOWEL OBSTRUCTION R/T RETRACTON OF STOMA July 29, 2024 9:59am GASTROPARESIS September 02, 2024 7:46 am Reason for Visit Admit Date Bowel obstruction June 17, 2024 7:59am Bowel obstruction due to retraction of s socorro June 17, 2024 7:59am Chief Complaint Admit Date constipation June 22, 2024 8:15am EORDER- ABDOMEN-BLAOTING June 24, 2024 9:17am ABD PAIN, BOWEL OBSTRUCTION R/T RETRACTO N OF STOMA July 22, 2024 11:41am BOWEL OBSTRUCTION R/T RETRACTON OF STOMA July 29, 2024 9:59am GASTROPARESIS September 02, 2024 7:46 am 3 M FU September 16, 2024 8:2 6am ABD PAIN October 14, 2024 9:1 7am Reason for Visit Admit Date Bowel obstruction September 16, 2024 8:2 6am Bowel obstruction due to retraction of s socorro September 16, 2024 8:26am Gastroparesis September 16, 2024 8:2 6am Scar tissue September 16, 2024 8:2 6am Chief Complaint Admit Date GASTROPARESIS September 02, 2024 7:46 am 3 M FU September 16, 2024 8:2 6am ABD PAIN October 14, 2024 9:1 7am 3 M FU December 02, 2024 7:24a m Chief Complaint Admit Date GASTROPARESIS September 02, 2024 7:46 am 3 M FU September 16, 2024 8:2 6am ABD PAIN October 14, 2024 9:1 7am 3 M FU December 02, 2024 7:24a m EORDER December 25, 2024 1:48 pm Reason for Visit Admit Date Bowel obstruction September 16, 2024 8:2 6am Bowel obstruction due to retraction of s socorro September 16, 2024 8:26am Gastroparesis September 16, 2024 8:2 6am Scar tissue September 16, 2024 8:2 6am Bowel obstruction December 02, 2024 7:24a m Bowel obstruction due to retraction of s socorro December 02, 2024 7:24am Gastroparesis December 02, 2024 7:24a m Scar tissue December 02, 2024 7:24a m Additional Source Comments INFORMATION SOURCE (unrecogn ized section and content) DATE CREATED AUTHOR 12/22/2017 [facility] DATE CREATED AUTHOR AUTHOR'S ORGANIZ ATION 06/22/2018 [facility] DATE CREATED AUTHOR AUTHOR'S ORGANIZ ATION 10/16/2018 [facility] DATE CREATED AUTHOR AUTHOR'S ORGANIZ ATION 10/06/2024 [facility] DATE CREATED AUTHOR AUTHOR'S ORGANIZ ATION 10/20/2024 [facility] DATE CREATED AUTHOR AUTHOR'S ORGANIZ ATION 01/25/2025 [facility] DATE CREATED AUTHOR AUTHOR'S ORGANIZ ATION 02/03/2025 [facility] DATE CREATED AUTHOR AUTHOR'S ORGANIZ ATION 02/03/2025 [facility] Source Comments (unrecognize d section and content) In the event this informatio n is protected by the Federal Confidentiality of Alcohol and Drug Abuse Patient Records regulations: The Federal rules restrict any use of the information to criminally investigate or prosecute any alcohol or drug abuse patient.[facility] the event this information is protected by the Federal Confidentiality of Alcohol and Drug Abuse Patient Records regulations: The Federal rules restrict any use of the information to criminally investigate or prosecute any alcohol or drug abuse patient.[facility] HospitalIn the event this information is protected by the Federal Confidentiality of Alcohol and Drug Abuse Patient Records regulations: The Federal rules restrict any use of the information to criminally investigate or prosecute any alcohol or drug abuse patient.[facility] HospitalIn the event this information is protected by the Federal Confidentiality of Alcohol and Drug Abuse Patient Records regulations: The Federal rules restrict any use of the information to criminally investigate or prosecute any alcohol or drug abuse patient.[facility] HospitalIn the event this information is protected by the Federal Confidentiality of Alcohol and Drug Abuse Patient Records regulations: The Federal rules restrict any use of the information to criminally investigate or prosecute any alcohol or drug abuse patient.[facility] HospitalIn the event this information is protected by the Federal Confidentiality of Alcohol and Drug Abuse Patient Records regulations: The Federal rules restrict any use of the information to criminally investigate or prosecute any alcohol or drug abuse patient.[facility] HospitalIn the event this information is protected by the Federal Confidentiality of Alcohol and Drug Abuse Patient Records regulations: The Federal rules restrict any use of the information to criminally investigate or prosecute any alcohol or drug abuse patient.[facility] HospitalIn the event this information is protected by the Federal Confidentiality of Alcohol and Drug Abuse Patient Records regulations: The Federal rules restrict any use of the information to criminally investigate or prosecute any alcohol or drug abuse patient.[facility] HospitalIn the event this information is protected by the Federal Confidentiality of Alcohol and Drug Abuse Patient Records regulations: The Federal rules restrict any use of the information to criminally investigate or prosecute any alcohol or drug abuse patient.[facility] HospitalIn the event this information is protected by the Federal Confidentiality of Alcohol and Drug Abuse Patient Records regulations: The Federal rules restrict any use of the information to criminally investigate or prosecute any alcohol or drug abuse patient.[facility] HospitalIn the event this information is protected by the Federal Confidentiality of Alcohol and Drug Abuse Patient Records regulations: The Federal rules restrict any use of the information to criminally investigate or prosecute any alcohol or drug abuse patient.[facility] HospitalIn the event this information is protected by the Federal Confidentiality of Alcohol and Drug Abuse Patient Records regulations: The Federal rules restrict any use of the information to criminally investigate or prosecute any alcohol or drug abuse patient.[facility] HospitalIn the event this information is protected by the Federal Confidentiality of Alcohol and Drug Abuse Patient Records regulations: The Federal rules restrict any use of the information to criminally investigate or prosecute any alcohol or drug abuse patient.[facility] HospitalIn the event this information is protected by the Federal Confidentiality of Alcohol and Drug Abuse Patient Records regulations: The Federal rules restrict any use of the information to criminally investigate or prosecute any alcohol or drug abuse patient.[facility] HospitalIn the event this information is protected by the Federal Confidentiality of Alcohol and Drug Abuse Patient Records regulations: The Federal rules restrict any use of the information to criminally investigate or prosecute any alcohol or drug abuse patient.[facility] HospitalIn the event this information is protected by the Federal Confidentiality of Alcohol and Drug Abuse Patient Records regulations: The Federal rules restrict any use of the information to criminally investigate or prosecute any alcohol or drug abuse patient.[facility] HospitalIn the event this information is protected by the Federal Confidentiality of Alcohol and Drug Abuse Patient Records regulations: The Federal rules restrict any use of the information to criminally investigate or prosecute any alcohol or drug abuse patient.[facility] HospitalIn the event this information is protected by the Federal Confidentiality of Alcohol and Drug Abuse Patient Records regulations: The Federal rules restrict any use of the information to criminally investigate or prosecute any alcohol or drug abuse patient.[facility] HospitalIn the event this information is protected by the Federal Confidentiality of Alcohol and Drug Abuse Patient Records regulations: The Federal rules restrict any use of the information to criminally investigate or prosecute any alcohol or drug abuse patient.[facility] HospitalIn the event this information is protected by the Federal Confidentiality of Alcohol and Drug Abuse Patient Records regulations: The Federal rules restrict any use of the information to criminally investigate or prosecute any alcohol or drug abuse patient.[facility] HospitalIn the event this information is protected by the Federal Confidentiality of Alcohol and Drug Abuse Patient Records regulations: The Federal rules restrict any use of the information to criminally investigate or prosecute any alcohol or drug abuse patient.[facility] HospitalIn the event this information is protected by the Federal Confidentiality of Alcohol and Drug Abuse Patient Records regulations: The Federal rules restrict any use of the information to criminally investigate or prosecute any alcohol or drug abuse patient.[facility] HospitalIn the event this information is protected by the Federal Confidentiality of Alcohol and Drug Abuse Patient Records regulations: The Federal rules restrict any use of the information to criminally investigate or prosecute any alcohol or drug abuse patient.[facility] HospitalIn the event this information is protected by the Federal Confidentiality of Alcohol and Drug Abuse Patient Records regulations: The Federal rules restrict any use of the information to criminally investigate or prosecute any alcohol or drug abuse patient.[facility] HospitalIn the event this information is protected by the Federal Confidentiality of Alcohol and Drug Abuse Patient Records regulations: The Federal rules restrict any use of the information to criminally investigate or prosecute any alcohol or drug abuse patient.[facility] HospitalIn the event this information is protected by the Federal Confidentiality of Alcohol and Drug Abuse Patient Records regulations: The Federal rules restrict any use of the information to criminally investigate or prosecute any alcohol or drug abuse patient.[facility] HospitalIn the event this information is protected by the Federal Confidentiality of Alcohol and Drug Abuse Patient Records regulations: The Federal rules restrict any use of the information to criminally investigate or prosecute any alcohol or drug abuse patient.[facility] HospitalIn the event this information is protected by the Federal Confidentiality of Alcohol and Drug Abuse Patient Records regulations: The Federal rules restrict any use of the information to criminally investigate or prosecute any alcohol or drug abuse patient.[facility] HospitalIn the event this information is protected by the Federal Confidentiality of Alcohol and Drug Abuse Patient Records regulations: The Federal rules restrict any use of the information to criminally investigate or prosecute any alcohol or drug abuse patient.[facility] HospitalIn the event this information is protected by the Federal Confidentiality of Alcohol and Drug Abuse Patient Records regulations: The Federal rules restrict any use of the information to criminally investigate or prosecute any alcohol or drug abuse patient.[facility] HospitalIn the event this information is protected by the Federal Confidentiality of Alcohol and Drug Abuse Patient Records regulations: The Federal rules restrict any use of the information to criminally investigate or prosecute any alcohol or drug abuse patient.[facility] HospitalIn the event this information is protected by the Federal Confidentiality of Alcohol and Drug Abuse Patient Records regulations: The Federal rules restrict any use of the information to criminally investigate or prosecute any alcohol or drug abuse patient.[facility] HospitalIn the event this information is protected by the Federal Confidentiality of Alcohol and Drug Abuse Patient Records regulations: The Federal rules restrict any use of the information to criminally investigate or prosecute any alcohol or drug abuse patient.[facility] HospitalIn the event this information is protected by the Federal Confidentiality of Alcohol and Drug Abuse Patient Records regulations: The Federal rules restrict any use of the information to criminally investigate or prosecute any alcohol or drug abuse patient.[facility] HospitalIn the event this information is protected by the Federal Confidentiality of Alcohol and Drug Abuse Patient Records regulations: The Federal rules restrict any use of the information to criminally investigate or prosecute any alcohol or drug abuse patient.[facility] HospitalIn the event this information is protected by the Federal Confidentiality of Alcohol and Drug Abuse Patient Records regulations: The Federal rules restrict any use of the information to criminally investigate or prosecute any alcohol or drug abuse patient.[facility] HospitalIn the event this information is protected by the Federal Confidentiality of Alcohol and Drug Abuse Patient Records regulations: The Federal rules restrict any use of the information to criminally investigate or prosecute any alcohol or drug abuse patient.[facility] HospitalIn the event this information is protected by the Federal Confidentiality of Alcohol and Drug Abuse Patient Records regulations: The Federal rules restrict any use of the information to criminally investigate or prosecute any alcohol or drug abuse patient.[facility] HospitalIn the event this information is protected by the Federal Confidentiality of Alcohol and Drug Abuse Patient Records regulations: The Federal rules restrict any use of the information to criminally investigate or prosecute any alcohol or drug abuse patient.[facility] HospitalIn the event this information is protected by the Federal Confidentiality of Alcohol and Drug Abuse Patient Records regulations: The Federal rules restrict any use of the information to criminally investigate or prosecute any alcohol or drug abuse patient.[facility] HospitalIn the event this information is protected by the Federal Confidentiality of Alcohol and Drug Abuse Patient Records regulations: The Federal rules restrict any use of the information to criminally investigate or prosecute any alcohol or drug abuse patient.[facility] HospitalIn the event this information is protected by the Federal Confidentiality of Alcohol and Drug Abuse Patient Records regulations: The Federal rules restrict any use of the information to criminally investigate or prosecute any alcohol or drug abuse patient.[facility] HospitalIn the event this information is protected by the Federal Confidentiality of Alcohol and Drug Abuse Patient Records regulations: The Federal rules restrict any use of the information to criminally investigate or prosecute any alcohol or drug abuse patient.[facility] HospitalIn the event this information is protected by the Federal Confidentiality of Alcohol and Drug Abuse Patient Records regulations: The Federal rules restrict any use of the information to criminally investigate or prosecute any alcohol or drug abuse patient.[facility] HospitalIn the event this information is protected by the Federal Confidentiality of Alcohol and Drug Abuse Patient Records regulations: The Federal rules restrict any use of the information to criminally investigate or prosecute any alcohol or drug abuse patient.[facility] HospitalIn the event this information is protected by the Federal Confidentiality of Alcohol and Drug Abuse Patient Records regulations: The Federal rules restrict any use of the information to criminally investigate or prosecute any alcohol or drug abuse patient.[facility] HospitalIn the event this information is protected by the Federal Confidentiality of Alcohol and Drug Abuse Patient Records regulations: The Federal rules restrict any use of the information to criminally investigate or prosecute any alcohol or drug abuse patient.[facility] HospitalIn the event this information is protected by the Federal Confidentiality of Alcohol and Drug Abuse Patient Records regulations: The Federal rules restrict any use of the information to criminally investigate or prosecute any alcohol or drug abuse patient.[facility] HospitalIn the event this information is protected by the Federal Confidentiality of Alcohol and Drug Abuse Patient Records regulations: The Federal rules restrict any use of the information to criminally investigate or prosecute any alcohol or drug abuse patient.[facility] HospitalIn the event this information is protected by the Federal Confidentiality of Alcohol and Drug Abuse Patient Records regulations: The Federal rules restrict any use of the information to criminally investigate or prosecute any alcohol or drug abuse patient.[facility] HospitalIn the event this information is protected by the Federal Confidentiality of Alcohol and Drug Abuse Patient Records regulations: The Federal rules restrict any use of the information to criminally investigate or prosecute any alcohol or drug abuse patient.[facility] HospitalIn the event this information is protected by the Federal Confidentiality of Alcohol and Drug Abuse Patient Records regulations: The Federal rules restrict any use of the information to criminally investigate or prosecute any alcohol or drug abuse patient.[facility] HospitalIn the event this information is protected by the Federal Confidentiality of Alcohol and Drug Abuse Patient Records regulations: The Federal rules restrict any use of the information to criminally investigate or prosecute any alcohol or drug abuse patient.[facility] HospitalIn the event this information is protected by the Federal Confidentiality of Alcohol and Drug Abuse Patient Records regulations: The Federal rules restrict any use of the information to criminally investigate or prosecute any alcohol or drug abuse patient.[facility] HospitalIn the event this information is protected by the Federal Confidentiality of Alcohol and Drug Abuse Patient Records regulations: The Federal rules restrict any use of the information to criminally investigate or prosecute any alcohol or drug abuse patient.[facility] HospitalIn the event this information is protected by the Federal Confidentiality of Alcohol and Drug Abuse Patient Records regulations: The Federal rules restrict any use of the information to criminally investigate or prosecute any alcohol or drug abuse patient.[facility] HospitalIn the event this information is protected by the Federal Confidentiality of Alcohol and Drug Abuse Patient Records regulations: The Federal rules restrict any use of the information to criminally investigate or prosecute any alcohol or drug abuse patient.[facility] HospitalIn the event this information is protected by the Federal Confidentiality of Alcohol and Drug Abuse Patient Records regulations: The Federal rules restrict any use of the information to criminally investigate or prosecute any alcohol or drug abuse patient.[facility] HospitalIn the event this information is protected by the Federal Confidentiality of Alcohol and Drug Abuse Patient Records regulations: The Federal rules restrict any use of the information to criminally investigate or prosecute any alcohol or drug abuse patient.[facility] HospitalIn the event this information is protected by the Federal Confidentiality of Alcohol and Drug Abuse Patient Records regulations: The Federal rules restrict any use of the information to criminally investigate or prosecute any alcohol or drug abuse patient.[facility] HospitalIn the event this information is protected by the Federal Confidentiality of Alcohol and Drug Abuse Patient Records regulations: The Federal rules restrict any use of the information to criminally investigate or prosecute any alcohol or drug abuse patient.[facility] HospitalIn the event this information is protected by the Federal Confidentiality of Alcohol and Drug Abuse Patient Records regulations: The Federal rules restrict any use of the information to criminally investigate or prosecute any alcohol or drug abuse patient.[facility] HospitalIn the event this information is protected by the Federal Confidentiality of Alcohol and Drug Abuse Patient Records regulations: The Federal rules restrict any use of the information to criminally investigate or prosecute any alcohol or drug abuse patient.[facility] HospitalIn the event this information is protected by the Federal Confidentiality of Alcohol and Drug Abuse Patient Records regulations: The Federal rules restrict any use of the information to criminally investigate or prosecute any alcohol or drug abuse patient.[facility] HospitalIn the event this information is protected by the Federal Confidentiality of Alcohol and Drug Abuse Patient Records regulations: The Federal rules restrict any use of the information to criminally investigate or prosecute any alcohol or drug abuse patient.[facility] HospitalIn the event this information is protected by the Federal Confidentiality of Alcohol and Drug Abuse Patient Records regulations: The Federal rules restrict any use of the information to criminally investigate or prosecute any alcohol or drug abuse patient.[facility] HospitalIn the event this information is protected by the Federal Confidentiality of Alcohol and Drug Abuse Patient Records regulations: The Federal rules restrict any use of the information to criminally investigate or prosecute any alcohol or drug abuse patient.[facility] HospitalIn the event this information is protected by the Federal Confidentiality of Alcohol and Drug Abuse Patient Records regulations: The Federal rules restrict any use of the information to criminally investigate or prosecute any alcohol or drug abuse patient.[facility] HospitalIn the event this information is protected by the Federal Confidentiality of Alcohol and Drug Abuse Patient Records regulations: The Federal rules restrict any use of the information to criminally investigate or prosecute any alcohol or drug abuse patient.[facility] HospitalIn the event this information is protected by the Federal Confidentiality of Alcohol and Drug Abuse Patient Records regulations: The Federal rules restrict any use of the information to criminally investigate or prosecute any alcohol or drug abuse patient.[facility] HospitalIn the event this information is protected by the Federal Confidentiality of Alcohol and Drug Abuse Patient Records regulations: The Federal rules restrict any use of the information to criminally investigate or prosecute any alcohol or drug abuse patient.[facility] HospitalIn the event this information is protected by the Federal Confidentiality of Alcohol and Drug Abuse Patient Records regulations: The Federal rules restrict any use of the information to criminally investigate or prosecute any alcohol or drug abuse patient.[facility] HospitalIn the event this information is protected by the Federal Confidentiality of Alcohol and Drug Abuse Patient Records regulations: The Federal rules restrict any use of the information to criminally investigate or prosecute any alcohol or drug abuse patient.[facility] HospitalIn the event this information is protected by the Federal Confidentiality of Alcohol and Drug Abuse Patient Records regulations: The Federal rules restrict any use of the information to criminally investigate or prosecute any alcohol or drug abuse patient.[facility] HospitalIn the event this information is protected by the Federal Confidentiality of Alcohol and Drug Abuse Patient Records regulations: The Federal rules restrict any use of the information to criminally investigate or prosecute any alcohol or drug abuse patient.[facility] HospitalIn the event this information is protected by the Federal Confidentiality of Alcohol and Drug Abuse Patient Records regulations: The Federal rules restrict any use of the information to criminally investigate or prosecute any alcohol or drug abuse patient.[facility] HospitalIn the event this information is protected by the Federal Confidentiality of Alcohol and Drug Abuse Patient Records regulations: The Federal rules restrict any use of the information to criminally investigate or prosecute any alcohol or drug abuse patient.[facility] HospitalIn the event this information is protected by the Federal Confidentiality of Alcohol and Drug Abuse Patient Records regulations: The Federal rules restrict any use of the information to criminally investigate or prosecute any alcohol or drug abuse patient.[facility] HospitalIn the event this information is protected by the Federal Confidentiality of Alcohol and Drug Abuse Patient Records regulations: The Federal rules restrict any use of the information to criminally investigate or prosecute any alcohol or drug abuse patient.[facility] HospitalIn the event this information is protected by the Federal Confidentiality of Alcohol and Drug Abuse Patient Records regulations: The Federal rules restrict any use of the information to criminally investigate or prosecute any alcohol or drug abuse patient.[facility] HospitalIn the event this information is protected by the Federal Confidentiality of Alcohol and Drug Abuse Patient Records regulations: The Federal rules restrict any use of the information to criminally investigate or prosecute any alcohol or drug abuse patient.[facility] HospitalIn the event this information is protected by the Federal Confidentiality of Alcohol and Drug Abuse Patient Records regulations: The Federal rules restrict any use of the information to criminally investigate or prosecute any alcohol or drug abuse patient.[facility] HospitalIn the event this information is protected by the Federal Confidentiality of Alcohol and Drug Abuse Patient Records regulations: The Federal rules restrict any use of the information to criminally investigate or prosecute any alcohol or drug abuse patient.[facility] HospitalIn the event this information is protected by the Federal Confidentiality of Alcohol and Drug Abuse Patient Records regulations: The Federal rules restrict any use of the information to criminally investigate or prosecute any alcohol or drug abuse patient.[facility] HospitalIn the event this information is protected by the Federal Confidentiality of Alcohol and Drug Abuse Patient Records regulations: The Federal rules restrict any use of the information to criminally investigate or prosecute any alcohol or drug abuse patient.[facility] HospitalIn the event this information is protected by the Federal Confidentiality of Alcohol and Drug Abuse Patient Records regulations: The Federal rules restrict any use of the information to criminally investigate or prosecute any alcohol or drug abuse patient.[facility] HospitalIn the event this information is protected by the Federal Confidentiality of Alcohol and Drug Abuse Patient Records regulations: The Federal rules restrict any use of the information to criminally investigate or prosecute any alcohol or drug abuse patient.[facility] HospitalIn the event this information is protected by the Federal Confidentiality of Alcohol and Drug Abuse Patient Records regulations: The Federal rules restrict any use of the information to criminally investigate or prosecute any alcohol or drug abuse patient.[facility] HospitalIn the event this information is protected by the Federal Confidentiality of Alcohol and Drug Abuse Patient Records regulations: The Federal rules restrict any use of the information to criminally investigate or prosecute any alcohol or drug abuse patient.[facility] HospitalIn the event this information is protected by the Federal Confidentiality of Alcohol and Drug Abuse Patient Records regulations: The Federal rules restrict any use of the information to criminally investigate or prosecute any alcohol or drug abuse patient.[facility] HospitalIn the event this information is protected by the Federal Confidentiality of Alcohol and Drug Abuse Patient Records regulations: The Federal rules restrict any use of the information to criminally investigate or prosecute any alcohol or drug abuse patient.[facility] HospitalIn the event this information is protected by the Federal Confidentiality of Alcohol and Drug Abuse Patient Records regulations: The Federal rules restrict any use of the information to criminally investigate or prosecute any alcohol or drug abuse patient.[facility] HospitalIn the event this information is protected by the Federal Confidentiality of Alcohol and Drug Abuse Patient Records regulations: The Federal rules restrict any use of the information to criminally investigate or prosecute any alcohol or drug abuse patient.[facility] HospitalIn the event this information is protected by the Federal Confidentiality of Alcohol and Drug Abuse Patient Records regulations: The Federal rules restrict any use of the information to criminally investigate or prosecute any alcohol or drug abuse patient.[facility] HospitalIn the event this information is protected by the Federal Confidentiality of Alcohol and Drug Abuse Patient Records regulations: The Federal rules restrict any use of the information to criminally investigate or prosecute any alcohol or drug abuse patient.[facility] HospitalIn the event this information is protected by the Federal Confidentiality of Alcohol and Drug Abuse Patient Records regulations: The Federal rules restrict any use of the information to criminally investigate or prosecute any alcohol or drug abuse patient.[facility] HospitalIn the event this information is protected by the Federal Confidentiality of Alcohol and Drug Abuse Patient Records regulations: The Federal rules restrict any use of the information to criminally investigate or prosecute any alcohol or drug abuse patient.[facility] HospitalIn the event this information is protected by the Federal Confidentiality of Alcohol and Drug Abuse Patient Records regulations: The Federal rules restrict any use of the information to criminally investigate or prosecute any alcohol or drug abuse patient.[facility] HospitalIn the event this information is protected by the Federal Confidentiality of Alcohol and Drug Abuse Patient Records regulations: The Federal rules restrict any use of the information to criminally investigate or prosecute any alcohol or drug abuse patient.[facility] HospitalIn the event this information is protected by the Federal Confidentiality of Alcohol and Drug Abuse Patient Records regulations: The Federal rules restrict any use of the information to criminally investigate or prosecute any alcohol or drug abuse patient.[facility] HospitalIn the event this information is protected by the Federal Confidentiality of Alcohol and Drug Abuse Patient Records regulations: The Federal rules restrict any use of the information to criminally investigate or prosecute any alcohol or drug abuse patient.[facility] HospitalIn the event this information is protected by the Federal Confidentiality of Alcohol and Drug Abuse Patient Records regulations: The Federal rules restrict any use of the information to criminally investigate or prosecute any alcohol or drug abuse patient.[facility] HospitalIn the event this information is protected by the Federal Confidentiality of Alcohol and Drug Abuse Patient Records regulations: The Federal rules restrict any use of the information to criminally investigate or prosecute any alcohol or drug abuse patient.[facility] HospitalIn the event this information is protected by the Federal Confidentiality of Alcohol and Drug Abuse Patient Records regulations: The Federal rules restrict any use of the information to criminally investigate or prosecute any alcohol or drug abuse patient.[facility] HospitalIn the event this information is protected by the Federal Confidentiality of Alcohol and Drug Abuse Patient Records regulations: The Federal rules restrict any use of the information to criminally investigate or prosecute any alcohol or drug abuse patient.[facility] HospitalIn the event this information is protected by the Federal Confidentiality of Alcohol and Drug Abuse Patient Records regulations: The Federal rules restrict any use of the information to criminally investigate or prosecute any alcohol or drug abuse patient.[facility] HospitalIn the event this information is protected by the Federal Confidentiality of Alcohol and Drug Abuse Patient Records regulations: The Federal rules restrict any use of the information to criminally investigate or prosecute any alcohol or drug abuse patient.[facility] HospitalIn the event this information is protected by the Federal Confidentiality of Alcohol and Drug Abuse Patient Records regulations: The Federal rules restrict any use of the information to criminally investigate or prosecute any alcohol or drug abuse patient.[facility] HospitalIn the event this information is protected by the Federal Confidentiality of Alcohol and Drug Abuse Patient Records regulations: The Federal rules restrict any use of the information to criminally investigate or prosecute any alcohol or drug abuse patient.[facility] HospitalIn the event this information is protected by the Federal Confidentiality of Alcohol and Drug Abuse Patient Records regulations: The Federal rules restrict any use of the information to criminally investigate or prosecute any alcohol or drug abuse patient.[facility] HospitalIn the event this information is protected by the Federal Confidentiality of Alcohol and Drug Abuse Patient Records regulations: The Federal rules restrict any use of the information to criminally investigate or prosecute any alcohol or drug abuse patient.[facility] HospitalIn the event this information is protected by the Federal Confidentiality of Alcohol and Drug Abuse Patient Records regulations: The Federal rules restrict any use of the information to criminally investigate or prosecute any alcohol or drug abuse patient.[facility] HospitalIn the event this information is protected by the Federal Confidentiality of Alcohol and Drug Abuse Patient Records regulations: The Federal rules restrict any use of the information to criminally investigate or prosecute any alcohol or drug abuse patient.[facility] HospitalIn the event this information is protected by the Federal Confidentiality of Alcohol and Drug Abuse Patient Records regulations: The Federal rules restrict any use of the information to criminally investigate or prosecute any alcohol or drug abuse patient.[facility] HospitalIn the event this information is protected by the Federal Confidentiality of Alcohol and Drug Abuse Patient Records regulations: The Federal rules restrict any use of the information to criminally investigate or prosecute any alcohol or drug abuse patient.[facility] HospitalIn the event this information is protected by the Federal Confidentiality of Alcohol and Drug Abuse Patient Records regulations: The Federal rules restrict any use of the information to criminally investigate or prosecute any alcohol or drug abuse patient.[facility] HospitalIn the event this information is protected by the Federal Confidentiality of Alcohol and Drug Abuse Patient Records regulations: The Federal rules restrict any use of the information to criminally investigate or prosecute any alcohol or drug abuse patient.[facility] HospitalIn the event this information is protected by the Federal Confidentiality of Alcohol and Drug Abuse Patient Records regulations: The Federal rules restrict any use of the information to criminally investigate or prosecute any alcohol or drug abuse patient.[facility] HospitalIn the event this information is protected by the Federal Confidentiality of Alcohol and Drug Abuse Patient Records regulations: The Federal rules restrict any use of the information to criminally investigate or prosecute any alcohol or drug abuse patient.[facility] HospitalIn the event this information is protected by the Federal Confidentiality of Alcohol and Drug Abuse Patient Records regulations: The Federal rules restrict any use of the information to criminally investigate or prosecute any alcohol or drug abuse patient.[facility] HospitalIn the event this information is protected by the Federal Confidentiality of Alcohol and Drug Abuse Patient Records regulations: The Federal rules restrict any use of the information to criminally investigate or prosecute any alcohol or drug abuse patient.[facility] Care Teams (unrecognized sec tion and content) Fryer Operator Relationship Specialty Start Date End Date Graham Whitehead MD [address] [place] [address] PCP - General 05/09/02 Fryer Operator Relationship Specialty Start Date End Date Graham Whitehead MD [address] [place] [address] PCP - General 05/09/02 Fryer Operator Relationship Specialty Start Date End Date Graham Whitehead MD [address] [place] [address] PCP - General 05/09/02 Fryer Operator Relationship Specialty Start Date End Date Graham Whitehead MD [address] [place] [address] PCP - General 05/09/02 Fryer Operator Relationship Specialty Start Date End Date Graham Whitehead MD [address] [place] [address] PCP - General 05/09/02 Fryer Operator Relationship Specialty Start Date End Date Graham Whitehead MD [address] [place] [address] PCP - General 05/09/02 Fryer Operator Relationship Specialty Start Date End Date Graham Whitehead MD [address] [place] [address] PCP - General 05/09/02 Fryer Operator Relationship Specialty Start Date End Date Graham Whitehead MD [address] [place] [address] PCP - General 05/09/02 Fryer Operator Relationship Specialty Start Date End Date Graham Whitehead MD [address] [place] [address] PCP - General 05/09/02 Fryer Operator Relationship Specialty Start Date End Date Graham Whitehead MD [address] [place] [address] PCP - General 05/09/02 Fryer Operator Relationship Specialty Start Date End Date Graham Whitehead MD [address] [place] [address] PCP - General 05/09/02 Fryer Operator Relationship Specialty Start Date End Date Graham Whitehead MD [address] [place] [address] PCP - General 05/09/02 Fryer Operator Relationship Specialty Start Date End Date Graham Whitehead MD [address] [place] [address] PCP - General 05/09/02 Fryer Operator Relationship Specialty Start Date End Date Graham Whitehead MD [address] [place] [address] PCP - General 05/09/02 Fryer Operator Relationship Specialty Start Date End Date Graham Whitehead MD [address] [place] [address] PCP - General 05/09/02 Fryer Operator Relationship Specialty Start Date End Date Juan Manuel Antonio DO [address] [place] [address] PCP - General Family Medicine 12/07/23 Fryer Operator Relationship Specialty Start Date End Date Juan Manuel Antonio DO [address] [place] [address] PCP - General Family Medicine 12/07/23 Fryer Operator Relationship Specialty Start Date End Date Juan Manuel Antonio DO [address] [place] [address] PCP - General Family Medicine 12/07/23 Fryer Operator Relationship Specialty Start Date End Date Graham Whitehead MD [address] [place] [address] PCP - General 05/09/02 12/06/23 Juan Manuel Antonio DO [address] [place] [address] PCP - General Family Medicine 12/07/23 Fryer Operator Relationship Specialty Start Date End Date Juan Manuel Antonio DO [address] [place] [address] PCP - General Family Medicine 12/07/23 Pranav Voss MD Respiratory Assistant 12/19/23 01/01/24 Fryer Operator Relationship Specialty Start Date End Date Juan Manuel Antonio DO [address] [place] [address] PCP - General Family Medicine 12/07/23 Pranav Voss MD Respiratory Assistant 12/19/23 01/01/24 Fryer Operator Relationship Specialty Start Date End Date Juan Manuel Antonio DO [address] [place] [address] PCP - General Family Medicine 12/07/23 Pranav Voss MD Respiratory Assistant 12/19/23 01/01/24 Fryer Operator Relationship Specialty Start Date End Date Juan Manuel Antonio DO [address] [place] [address] PCP - General Family Medicine 12/07/23 Pranav Voss MD Respiratory Assistant 12/19/23 01/01/24 Fryer Operator Relationship Specialty Start Date End Date Juan Manuel Antonio DO [address] [place] [address] PCP - General Family Medicine 12/07/23 Pranav Voss MD Respiratory Assistant 12/19/23 01/01/24 Fryer Operator Relationship Specialty Start Date End Date Juan Manuel Antonio DO [address] [facility] [place] [address] PCP - General Family Medicine 12/07/23 Pranav Voss MD Respiratory Assistant 12/19/23 01/01/24 Fryer Operator Relationship Specialty Start Date End Date Juan Manuel Antonio DO [address] [facility] [place] [address] PCP - General Family Medicine 12/07/23 Pranav Voss MD Respiratory Assistant 12/19/23 01/01/24 Fryer Operator Relationship Specialty Start Date End Date Juan Manuel Antonio DO [address] [facility] [place] [address] PCP - General Family Medicine 12/07/23 Fryer Operator Relationship Specialty Start Date End Date Graham Whitehead MD [address] [facility] [place] [address] PCP - General 05/09/02 12/06/23 Juan Manuel Antonio DO [address] [facility] [place] [address] PCP - General Family Medicine 12/07/23 Pranav Voss MD Respiratory Assistant 12/19/23 01/01/24 Fryer Operator Relationship Specialty Start Date End Date Juan Manuel Antonio DO [address] [facility] [place] [address] PCP - General Family Medicine 12/07/23 Fryer Operator Relationship Specialty Start Date End Date Juan Manuel Antonio DO [address] [place] [address] PCP - General Family Medicine 12/07/23 Fryer Operator Relationship Specialty Start Date End Date Juan Manuel Antonio DO [address] [place] [address] PCP - General Family Medicine 12/07/23 Fryer Operator Relationship Specialty Start Date End Date Juan Manuel Antonio DO [address] [place] [address] PCP - General Family Medicine 12/07/23 Fryer Operator Relationship Specialty Start Date End Date Juan Manuel Antonio DO [address] [place] [address] PCP - General Family Medicine 12/07/23 Fryer Operator Relationship Specialty Start Date End Date Graham Whitehead MD [address] [place] [address] PCP - General 05/09/02 12/06/23 Fryer Operator Relationship Specialty Start Date End Date Juan Manuel Antonio DO [address] [place] [address] PCP - General Family Medicine 12/07/23 Fryer Operator Relationship Specialty Start Date End Date Graham Whitehead MD [address] [place] [address] PCP - General 05/09/02 12/06/23 Fryer Operator Relationship Specialty Start Date End Date Juan Manuel Antonio DO [address] [place] [address] PCP - General Family Medicine 12/07/23 Fryer Operator Relationship Specialty Start Date End Date Graham Whitehead MD [address] [place] [address] PCP - General 05/09/02 12/06/23 Fryer Operator Relationship Specialty Start Date End Date Juan Manuel Antonio DO [address] [place] [address] PCP - General Family Medicine 12/07/23 Fryer Operator Relationship Specialty Start Date End Date Juan Manuel Antonio DO [address] [place] [address] PCP - General Family Medicine 12/07/23 Fryer Operator Relationship Specialty Start Date End Date Juan Manuel Antonio DO [address] [place] [address] PCP - General Family Medicine 12/07/23 Fryer Operator Relationship Specialty Start Date End Date Juan Manuel Antonio DO [address] [place] [address] PCP - General Family Medicine 12/07/23 Fryer Operator Relationship Specialty Start Date End Date Juan Manuel Antonio DO [address] [place] [address] PCP - General Family Medicine 12/07/23 Fryer Operator Relationship Specialty Start Date End Date Juan Manuel Antonio DO [address] [place] [address] PCP - General Family Medicine 12/07/23 Fryer Operator Relationship Specialty Start Date End Date Juan Manuel Antonio DO [address] [place] [address] PCP - General Family Medicine 12/07/23 Fryer Operator Relationship Specialty Start Date End Date Juan Manuel Antonio DO [address] [place] [address] PCP - General Family Medicine 12/07/23 Fryer Operator Relationship Specialty Start Date End Date Juan Manuel Antonio DO [address] [place] [address] PCP - General Family Medicine 12/07/23 Caitlin Curtis, RN CLINICAL.SIGNAL INSPECTOR [address] [facility] [place] [address] Respiratory Assistant Family Medicine 06/09/24 Jill Munson, RN CLINICAL.SIGNAL INSPECTOR [address] [facility] [place] [address] Respiratory Assistant Family Medicine 06/09/24 Fryer Operator Relationship Specialty Start Date End Date Juan Manuel Antonio DO [address] [facility] [place] [address] PCP - General Family Medicine 12/07/23 Caitlin Curtis, RN CLINICAL.SIGNAL INSPECTOR [address] [place] [address] Respiratory Assistant Family Medicine 06/09/24 Jill Munson, RN CLINICAL.SIGNAL INSPECTOR [address] [facility] [place] [address] Respiratory Assistant Family Medicine 06/09/24 Fryer Operator Relationship Specialty Start Date End Date Juan Manuel Antonio DO [address] [place] [address] PCP - General Family Medicine 12/07/23 Caitlin Curtis, RN CLINICAL.SIGNAL INSPECTOR [address] [place] [address] Respiratory Assistant Family Medicine 06/09/24 Jill Munson, RN CLINICAL.SIGNAL INSPECTOR [address] [place] [address] Respiratory Assistant Family Medicine 06/09/24 Fryer Operator Relationship Specialty Start Date End Date Juan Manuel Antonio DO [address] [facility] [place] [address] PCP - General Family Medicine 12/07/23 Caitlin Curtis, RN CLINICAL.SIGNAL INSPECTOR [address] [facility] [place] [address] [facility] 06/[facility]24 [facility] CLINICAL.SIGNAL INSPECTOR [address] [facility] [place] [address] [facility] 06/09/24 Fryer Operator Relationship Specialty Start Date End Date Juan Manuel Antonio DO [address] [facility] [place] [address] PCP - General Family Medicine 12/07/23 Caitlin Curtis, RN CLINICAL.SIGNAL INSPECTOR [address] [facility] [place] [address] [facility] 06/09/24 [facility], RN CLINICAL.SIGNAL INSPECTOR [address] [facility] [place] [address] [facility] 06/09/24 Fryer Operator Relationship Specialty Start Date End Date Juan Manuel Antonio DO [address] [facility] [place] [address] PCP - General Family Medicine 12/07/23 Caitlin Curtis, RN CLINICAL.SIGNAL INSPECTOR [address] [facility] [place] [address] [facility] 06/09/24 [facility], RN CLINICAL.SIGNAL INSPECTOR [address] [place] [address] Res[facility] 06/09/24 Fryer Operator Relationship Specialty Start Date End Date Juan Manuel Antonio DO [address] [place] [address] PCP - General Family Medicine 12/07/23 Caitlin Curtis, RN CLINICAL.SIGNAL INSPECTOR [address] [place] [address] Respiratory [facility]Color[facility] 06/09/24 [facility], RN CLINICAL.SIGNAL INSPECTOR [address] [place] [address] Respiratory [facility]Color[facility] 06/09/24 Fryer Operator Relationship Specialty Start Date End Date Juan Manuel Antonio DO [address] [place] [address] PCP - General Family Medicine 12/07/23 Caitlin Curtis, RN CLINICAL.SIGNAL INSPECTOR [address] [place] [address] Respiratory AssistantColor[facility] 06/09/24 [facility], RN CLINICAL.SIGNAL INSPECTOR [address] [place] [address] [facility] 06/09/24 Fryer Operator Relationship Specialty Start Date End Date Juan Manuel Antonio DO [address] [place] [address] PCP - General Family Medicine 12/07/23 Caitlin Curtis, RN CLINICAL.SIGNAL INSPECTOR [address] [place] [address] Respiratory Assistant Family Medicine 06/09/24 Jill Munson, RN CLINICAL.SIGNAL INSPECTOR [address] [place] [address] Respiratory Assistant Family Medicine 06/09/24 Fryer Operator Relationship Specialty Start Date End Date Juan Manuel Antonio DO [address] [place] [address] PCP - General Family Medicine 12/07/23 Caitlin Curtis, RN CLINICAL.SIGNAL INSPECTOR [address] [place] [address] Respiratory Assistant Family Medicine 06/09/24 Jill Munson, RN CLINICAL.SIGNAL INSPECTOR [address] [place] [address] Respiratory Assistant Family [facility] 06/09/24 Fryer Operator Relationship Specialty Start Date End Date Juan Manuel Antonio DO [address] [place] [address] PCP - General Family Medicine 12/07/23 Caitlin Curtis, RN CLINICAL.SIGNAL INSPECTOR [address] [place] [address] Respiratory Assistant Family Medicine 06/09/24 Jill Munson, RN CLINICAL.SIGNAL INSPECTOR [address] [place] [address] Respiratory Assistant Family Medicine 06/09/24 Fryer Operator Relationship Specialty Start Date End Date Juan Manuel Antonio DO [address] [place] [address] PCP - General Family Medicine 12/07/23 Caitlin Curtis, RN CLINICAL.SIGNAL INSPECTOR [address] [place] [address] Respiratory Assistant Family Medicine 06/09/24 Jill Munson, RN CLINICAL.SIGNAL INSPECTOR [address] [facility] [place] [address] Respiratory Assistant Family Medicine 06/09/24 Fryer Operator Relationship Specialty Start Date End Date Juan Manuel Antonio DO [address] [facility] [place] [address] PCP - General Family Medicine 12/07/23 Caitlin Curtis, RN CLINICAL.SIGNAL INSPECTOR [address] [facility] [place] [address] Respiratory Assistant Family Medicine 06/09/24 Jill Munson, RN CLINICAL.SIGNAL INSPECTOR [address] [facility] [place] [address] Respiratory Assistant Family Medicine 06/09/24 Fryer Operator Relationship Specialty Start Date End Date Juan Manuel Antonio DO [address] [facility] [place] [address] PCP - General Family Medicine 12/07/23 Caitlin Curtis, RN CLINICAL.SIGNAL INSPECTOR [address] [facility] [place] [address] Respiratory Assistant Family Medicine 06/09/24 Jill Munson, RN CLINICAL.SIGNAL INSPECTOR [address] [facility] [place] [address] [facility] 06/09/24 Fryer Operator Relationship Specialty Start Date End Date Juan Manuel Antonio DO [address] [facility] [place] [address] PCP - General Family Medicine 12/07/23 Caitlin Curtis, RN CLINICAL.SIGNAL INSPECTOR [address] [place] [address] Res[facility] 06/09/24 [facility] CLINICAL.SIGNAL INSPECTOR [address] [facility] [place] [address] [facility] 06/09/24 Fryer Operator Relationship Specialty Start Date End Date Juan Manuel Antonio DO [address] [facility] [place] [address] PCP - General Family Medicine 12/07/23 Caitlin Curtis, RN CLINICAL.SIGNAL INSPECTOR [address] [facility] [place] [address] [facility] 06/09/24 [facility] CLINICAL.SIGNAL INSPECTOR [address] [facility] [place] [address] [facility] 06/09/24 Fryer Operator Relationship Specialty Start Date End Date Juan Manuel Antonio DO [address] [facility] [place] [address] PCP - General Family Medicine 12/07/23 Caitlin Curtis, RN CLINICAL.SIGNAL INSPECTOR [address] [place] [address] Respiratory [facility]Color[facility] 06/09/24 Jill Munson, RN CLINICAL.SIGNAL INSPECTOR [address] [place] [address] [facility] 06/09/24 Fryer Operator Relationship Specialty Start Date End Date Juan Manuel Antonio DO [address] [place], [place] [id number] PCP - General Family Medicine 12/07/23 Caitlin Curtis, RN CLINICAL.SIGNAL INSPECTOR [address] [place] [address] [facility] 06/09/24 Jill Munson, RN CLINICAL.SIGNAL INSPECTOR [address] [place] [address] [facility] 06/09/24 Fryer Operator Relationship Specialty Start Date End Date Juan Manuel Antonio DO [address] [place] [address] PCP - General Family Medicine 12/07/23 Jill Munson, RN CLINICAL.SIGNAL INSPECTOR [address] [place] [address] [facility] 06/09/24 Team Status: Active Member Role Status Dates Dr. Juan Manuel Antonio DO Primary Care Provider Active Team Status: Inactive Member Role Status Dates Dr. Colton Juárez DO Attending Provider Active Start: June 17, 2024 End: June 17, 2024 Dr. Juan Manuel Antonio DO Primary Care Provider Active Start: June 17, 2024 End: June 17, 2024 Dr. Juan Manuel Antonio DO Referring Provider Active Start: June 17, 2024 End: June 17, 2024 Team Status: Inactive Member Role Status Dates Dr. Juan Manuel Antonio DO Primary Care Provider Active Start: June 17, 2024 End: June 17, 2024 Dr. Colton Juárez DO Attending Provider Active Start: June 17, 2024 End: June 17, 2024 Dr. Colton Juárez DO Referring Provider Active Start: June 17, 2024 End: June 17, 2024 Team Status: Inactive Member Role Status Dates Dr. Juan Manuel Antonio DO Primary Care Provider Active Start: June 22, 2024 End: June 22, 2024 Dr. Colton Juárez DO Attending Provider Active Start: June 22, 2024 End: June 22, 2024 Dr. Colton Juárez DO Referring Provider Active Start: June 22, 2024 End: June 22, 2024 Team Status: Inactive Member Role Status Dates Dr. Juan Manuel Antonio DO Primary Care Provider Active Start: June 24, 2024 End: June 24, 2024 Dr. Colton Juárez DO Attending Provider Active Start: June 24, 2024 End: June 24, 2024 Dr. Colton Juárez DO Referring Provider Active Start: June 24, 2024 End: June 24, 2024 Team Status: Inactive Member Role Status Dates Dr. Juan Manuel Antonio DO Primary Care Provider Active Start: July 22, 2024 End: July 22, 2024 Dr. Colton Juárez DO Attending Provider Active Start: July 22, 2024 End: July 22, 2024 Dr. Colton Juárez DO Referring Provider Active Start: July 22, 2024 End: July 22, 2024 Team Status: Inactive Member Role Status Dates Dr. Juan Manuel Antonio DO Primary Care Provider Active Start: July 29, 2024 End: July 29, 2024 Dr. Colton Juárez DO Attending Provider Active Start: July 29, 2024 End: July 29, 2024 Dr. Colton Juárez DO Referring Provider Active Start: July 29, 2024 End: July 29, 2024 Team Status: Inactive Member Role Status Dates Dr. Juan Manuel Antonio DO Primary Care Provider Active Start: September 02, 2024 End: September 02, 2024 Dr. Colton Juárez DO Attending Provider Active Start: September 02, 2024 End: September 02, 2024 Dr. Colton Juárez DO Referring Provider Active Start: September 02, 2024 End: September 02, 2024 Fryer Operator Relationship Specialty Start Date End Date Juan Manuel Antonio DO [address] [facility] [place] [address] PCP - General Family Medicine 12/07/23 Caitlin Curtis, RN CLINICAL.SIGNAL INSPECTOR [address] [facility] [place] [address] Respiratory Assistant Family Medicine 06/09/24 09/20/24 ArpitJill timmons, RN CLINICAL.SIGNAL INSPECTOR [address] [facility] [place] [address] Respiratory AssistantColor[facility] 06/09/24 Fryer Operator Relationship Specialty Start Date End Date Juan Manuel Antonio DO [address] [facility] [place] [address] PCP - General Family Medicine 12/07/23 Jill Munson, RN CLINICAL.SIGNAL INSPECTOR [address] [facility] [place] [address] [facility] 06/09/24 Fryer Operator Relationship Specialty Start Date End Date Juan Manuel Antonio DO [address] [facility] [place] [address] PCP - General Family Medicine 12/07/23 Jill Munson, RN CLINICAL.SIGNAL INSPECTOR [address] [facility] [place] [address] [facility] 06/09/24 Fryer Operator Relationship Specialty Start Date End Date Juan Manuel Antonio DO [address] [facility] [place] [address] PCP - General Family Medicine 12/07/23 [facility], RN CLINICAL.SIGNAL INSPECTOR [address] [place] [address] Respiratory Assistant Family Medicine 06/09/24 Fryer Operator Relationship Specialty Start Date End Date Juan Manuel Antonio DO [address] [place] [address] PCP - General Family Medicine 12/07/23 [facility], RN CLINICAL.SIGNAL INSPECTOR [address] [facility] [place] [address] Respiratory Assistant [facility] 06/09/24 Fryer Operator Relationship Specialty Start Date End Date Juan Manuel Antoino DO [address] [place] [address] PCP - General Family Medicine 12/07/23 [facility], RN CLINICAL.SIGNAL INSPECTOR [address] [place] [address] Respiratory Assistant [facility] 06/09/24 Fryer Operator Relationship Specialty Start Date End Date Juan Manuel Antonio DO [address] [facility] [place] [address] PCP - General Family Medicine 12/07/23 [facility] Jill, RN CLINICAL.SIGNAL INSPECTOR [address] [place] [address] Respiratory AssistantColor[facility] 06/09/24 Fryer Operator Relationship Specialty Start Date End Date Juan Manuel Antonio DO [address] [place] [address] PCP - General Family Medicine 12/07/23 [facility], RN CLINICAL.SIGNAL INSPECTOR [address] [place] [address] [facility] 06/09/24 Team Status: Inactive Member Role Status Dates Dr. Juan Manuel Antonio DO Primary Care Provider Active Start: September 16, 2024 End: September 16, 2024 Dr. Juan Manuel Antonio DO Referring Provider Active Start: September 16, 2024 End: September 16, 2024 Dr. Colton Juárez DO Attending Provider Active Start: September 16, 2024 End: September 16, 2024 Team Status: Inactive Member Role Status Dates Dr. Juan Manuel Antonio DO Primary Care Provider Active Start: October 14, 2024 End: October 14, 2024 Dr. Colton Juárez DO Attending Provider Active Start: October 14, 2024 End: October 14, 2024 Dr. Colton Juárez DO Referring Provider Active Start: October 14, 2024 End: October 14, 2024 Fryer Operator Relationship Specialty Start Date End Date Juan Manuel Antonio DO [address] [place] [address] PCP - General Family Medicine 12/07/23 [facility] Jill, RN CLINICAL.SIGNAL INSPECTOR [address] [place] [address] [facility] 06/09/24 Fryer Operator Relationship Specialty Start Date End Date Juan Manuel Antonio DO [address] [place] [address] PCP - General Family Medicine 12/07/23 [facility] HospitalAmiraJill, RN CLINICAL.SIGNAL INSPECTOR [address] [place] [address] [facility] 06/09/24 Fryer Operator Relationship Specialty Start Date End Date Juan Manuel Antonio DO [address] [place] [address] PCP - General Family Medicine 12/07/23 Jill Munson, RN CLINICAL.SIGNAL INSPECTOR [address] [place] [address] Respiratory Assistant Family Medicine 06/09/24 Fryer Operator Relationship Specialty Start Date End Date Juan Manuel Antonio DO [address] [place] [address] PCP - General Family Medicine 12/07/23 Jill Munson, RN CLINICAL.SIGNAL INSPECTOR [address] [place] [address] Respiratory Assistant Family Medicine 06/09/24 Fryer Operator Relationship Specialty Start Date End Date Juan Manuel Antonio DO [address] [place] [address] PCP - General Family Medicine 12/07/23 Caitlin Curtis, RN CLINICAL.SIGNAL INSPECTOR [address] [place] [address] Respiratory Assistant Family Medicine 06/09/24 09/20/24 Jill Munson, RN CLINICAL.SIGNAL INSPECTOR [address] [place] [address] Respiratory Assistant Family Medicine 06/09/24 Fryer Operator Relationship Specialty Start Date End Date Juan Manuel Antonio DO [address] [place] [address] PCP - General Family Medicine 12/07/23 Jill Munson, RN CLINICAL.SIGNAL INSPECTOR [address] [place] [address] Respiratory Assistant [facility] 06/09/24 Fryer Operator Relationship Specialty Start Date End Date Juan Manuel Antonio DO [address] [place] [address] PCP - General Family Medicine 12/07/23 ArpitJill, RN CLINICAL.SIGNAL INSPECTOR [address] [place] [address] Respiratory [facility]Color[facility] 06/09/24 Fryer Operator Relationship Specialty Start Date End Date Juan Manuel Antonio DO [address] [place] [address] PCP - General Family Medicine 12/07/23 ArpitJill, RN CLINICAL.SIGNAL INSPECTOR [address] [place] [address] [facility] 06/09/24 Team Status: Inactive Member Role Status Dates Dr. Juan Manuel Antonio DO Primary Care Provider Active Start: December 02, 2024 End: December 02, 2024 Dr. Juan Manuel Antonio DO Referring Provider Active Start: December 02, 2024 End: December 02, 2024 Dr. Colton Juárez DO Attending Provider Active Start: December 02, 2024 End: December 02, 2024 Fryer Operator Relationship Specialty Start Date End Date Juan Manuel Antonio DO [address] [place] [address] PCP - General Family Medicine 12/07/23 ArpitJill, RN CLINICAL.SIGNAL INSPECTOR [address] [place] [address] [facility] 06/09/24 Fryer Operator Relationship Specialty Start Date End Date Juan Manuel Antonio DO [address] [place] [address] PCP - General Family Medicine 12/07/23 ArpitJill, RN CLINICAL.SIGNAL INSPECTOR [address] [place] [address] Respiratory Assistant Family Medicine 06/09/24 Fryer Operator Relationship Specialty Start Date End Date Juan Manuel Antonio DO [address] [place] [address] PCP - General Family Medicine 12/07/23 ArpitJill, RN CLINICAL.SIGNAL INSPECTOR [address] [place] [address] Respiratory Assistant Family Medicine 06/09/24 Velma Be, RN CLINICAL.SIGNAL INSPECTOR [address] [place] [address] Respiratory Assistant [facility] 12/16/24 Fryer Operator Relationship Specialty Start Date End Date Juan Manuel Antonio DO [address] [place] [address] PCP - General Family Medicine 12/07/23 [facility], RN CLINICAL.SIGNAL INSPECTOR [address] [place] [address] Respiratory Assistant Family Medicine 06/09/24 Velma Be, RN CLINICAL.SIGNAL INSPECTOR [address] [place] [address] Respiratory Assistant Family [facility] 12/16/24 Fryer Operator Relationship Specialty Start Date End Date Juan Manuel Antonio DO [address] [place] [address] PCP - General Family Medicine 12/07/23 Jill Munson, JO.SIGNAL INSPECTOR [address] [place] [address] Respiratory Assistant Family Medicine 06/09/24 Velma Be APRN.SIGNAL INSPECTOR [address] [place] [address] [facility]Davis [facility] 12/16/24 Fryer Operator Relationship Specialty Start Date End Date Juan Manuel Antonio DO [address] [place] [address] PCP - General Family Medicine 12/07/23 Jill Munson, RN CLINICAL.SIGNAL INSPECTOR [address] [place] [address] Respiratory Assistant [facility] Medicine 06/09/24 Velma Be, JO.SIGNAL INSPECTOR [address] [place] [address] Res[facility] 12/16/24 Team Status: Active Member Role/Relationship Status Dates Dr. Juan Manuel Antonio DO Primary Care Provider Active Team Status: Inactive Member Role/Relationship Status Dates Dr. Juan Manuel Antonio DO Primary Care Provider Active Start: September 02, 2024 End: September 02, 2024 Dr. Colton Juárez DO Attending Provider Active Start: September 02, 2024 End: September 02, 2024 Dr. Colton Juárez DO Referring Provider Active Start: September 02, 2024 End: September 02, 2024 Team Status: Inactive Member Role/Relationship Status Dates Dr. Juan Manuel Antonio DO Primary Care Provider Active Start: September 16, 2024 End: September 16, 2024 Dr. Juan Manuel Antonio DO Referring Provider Active Start: September 16, 2024 End: September 16, 2024 Dr. Colton Juárez DO Attending Provider Active Start: September 16, 2024 End: September 16, 2024 Team Status: Inactive Member Role/Relationship Status Dates Dr. Juan Manuel Antonio DO Primary Care Provider Active Start: October 14, 2024 End: October 14, 2024 Dr. Colton Juárez DO Attending Provider Active Start: October 14, 2024 End: October 14, 2024 Dr. Colton Juárez DO Referring Provider Active Start: October 14, 2024 End: October 14, 2024 Team Status: Inactive Member Role/Relationship Status Dates Dr. Juan Manuel Antonio DO Primary Care Provider Active Start: December 02, 2024 End: December 02, 2024 Dr. Juan Manuel Antonio DO Referring Provider Active Start: December 02, 2024 End: December 02, 2024 Dr. Colton Juárez DO Attending Provider Active Start: December 02, 2024 End: December 02, 2024 Team Status: Inactive Member Role/Relationship Status Dates Dr. Juan Manuel Antonio DO Primary Care Provider Active Start: December 25, 2024 End: December 25, 2024 Dr. Colton Juárez DO Attending Provider Active Start: December 25, 2024 End: December 25, 2024 Dr. Colton Juárez DO Referring Provider Active Start: December 25, 2024 End: December 25, 2024 Fryer Operator Relationship Specialty Start Date End Date Juan Manuel Antonio DO [address] [place], [place] [address] PCP - General Family Medicine 12/07/23 Jill Munson, RN CLINICAL.SIGNAL INSPECTOR [address] [place], [place] [id number] Respiratory Assistant Family Medicine 06/09/24 Velma Be, RN CLINICAL.SIGNAL INSPECTOR [address] [place], [place] [id number] Respiratory Assistant Family Medicine 12/16/24 Fryer Operator Relationship Specialty Start Date End Date Juan Manuel Antonio DO [address] [place] [address] PCP - General Family Medicine 12/07/23 Jill Munson, RN CLINICAL.SIGNAL INSPECTOR [address] [place] [address] Respiratory Assistant Family Medicine 06/09/24 Velma Be, RN CLINICAL.SIGNAL INSPECTOR [address] [place] [address] Respiratory Assistant Family Medicine 12/16/24 Fryer Operator Relationship Specialty Start Date End Date Juan Manuel Antonio DO [address] [place] [address] PCP - General Family Medicine 12/07/23 Jill Munson, RN CLINICAL.SIGNAL INSPECTOR [address] [place] [address] Respiratory Assistant Family Medicine 06/09/24 Velma Be, RN CLINICAL.SIGNAL INSPECTOR [address] [place] [address] Respiratory Assistant Family Medicine 12/16/24 Fryer Operator Relationship Specialty Start Date End Date Juan Manuel Antonio DO [address] [place] [address] PCP - General Family Medicine 12/07/23 Jill Munson, RN CLINICAL.SIGNAL INSPECTOR [address] [place] [address] Respiratory Assistant Family Medicine 06/09/24 Velma Be, RN CLINICAL.SIGNAL INSPECTOR [address] [place] [address] Respiratory Assistant Family Medicine 12/16/24 Reason for Visit (unrecogniz ed section and content) Reason Comments College parking permit Reason Comments Yearly Exam Reason Comments Sore Throat Congestion x 1 day Reason Comments Results Reason Comments Results, Lab Reason Comments Established Patient Reason Comments Release Of Medical Records Specialty Diagnoses / Procedures Referred By Contac t Referred To Contact MR IMAGING Diagnoses Chiari I malformation (HCC) Procedures MRI CERVICAL SPINE WO IVCON MRI SPINAL CANAL CERVICAL W/O CONTRAST MATRL Alecia Gallegos PA-C [address] [place] [address] [facility] [place] [address] Referral ID Status Reason Start Date Expiration Date V isits Requested Visits Authorized [id number] Closed Auto-Generate d Referral 06/15/2022 07/02/2022 1 1 Reason Comments Schedule Surgery Reason Comments Pre-Op Exam Reason Comments Urinary Problem Frequency, burning x 1 day Reason Comments Orders Question Reason Comments Establish Care Reason Comments Suture Removal scalp Reason Comments Clinical Update Reason Comments Urinary Problem Burning and frequenc y x 3 days Reason Comments Refill Request Reason Comments Follow Up Referral ID Status Reason Start Date Expiration Date V isits Requested Visits Authorized [id number] Closed Auto-Generate d Referral 11/29/2023 12/14/2024 1 1 Specialty Diagnoses / Procedures [facility] Referred To Contact MR IMAGING Diagnoses Chiari I malformation (HCC) Procedures MRI BRAIN WO IVCON MRI BRAIN BRAIN STEM W/O CONTRAST MATERIAL Alecia Gallegos PA-C [address] [place] [address] [facility] [place] [address] Referral ID Status Reason Start Date Expiration Date V isits Requested Visits Authorized [id number] Closed Auto-Generate d Referral 03/24/2023 04/22/2024 1 1 Reason Comments URI Upper respiratory is sues, pressure, stuffy nose, cough, mucus, sore throat, left ear pain x 1 week Reason Comments Question Pre-Op Update DOS 12/14 Reason Comments Urinary Problem Burning, brain fog, foul smelling odor, pt self caths x 2 days Referral ID Status Reason Start Date Expiration Date V isits Requested Visits Authorized [id number] Closed Auto-Generate d Referral 01/26/2024 02/24/2025 1 1 Reason Comments Cough Dry cough, SOB, whee zes, chest tightness, headache, increases at HS x 5 days Reason Comments pneumonia, re evaluate Reason Comments Established Patient Reason Comments urgent care f/up Covid, pneumonia. Co ugh remains and sob hard to catch breath Reason Comments Medication Problem Reason Comments Ear Pain R ear pain, pain yeni n into neck x5 days Reason Comments UTI Urgency, Frequency, Burning with urination. Patient does self cath she states. X 3 daysPatient did take OTC AZO last dose was lastnight Reason Comments Radiology US Specialty Diagnoses / Procedures Referred By Mtac t Referred To Contact US IMAGING Diagnoses Dysmenorrhea Procedures US FEMALE PELVIS TRANSABD LTD US PELVIC NONOBSTETRIC IMAGE DCMTN LIMITED/F/U Juan Manuel Antonio, DO [address] [place] [address] [place] [address] Referral ID Status Reason Start Date Expiration Date V isits Requested Visits Authorized [id number] Closed Auto-Generate d Referral 07/15/2024 08/14/2025 1 1 Reason Comments Toe Pain (Toe) Left 4th toe red thi s am no known injury Reason Comments lft second to end toe red sw ollen into foot ilsa to walk Has no feeling in foot due to disability follow up on left foot Reason Comments UTI positive results - needs ABT PCP ord ered urine for UTI symptoms - patient gave urine to our lab last night which resulted positive today however her provider wont see it until Monday. She would like an antibiotic if possible Reason Comments Patient Question Reason Comments infectiom back in left toe or foot Reason Comments follow up on lft foot Reason Comments frequent urination Frequent urge to uri soren and pressure x 3 days Patient does self cath while at home Reason Comments frequent urination Frequent urination x 2 days Has recurring UTI's Reason Comments Appointment Reason Comments UTI Frequency was here o n 3\28\25 no better Reason Onset Date Comments Results 10/04/2024 Reason Comments Patient Update Reason Comments Patient Question Patient Update Reason Comments New Patient UTI Reason Comments Orders Reason Comments Follow Up 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 She feels she can completely void. There is no blood or odor to the urine. Hx of chronic UTI's. Goals (unrecognized section and content) Goals may be documented in a n alternate section No data available for this sectionGoals may be documented in an alternate sectionGoals may be documented in an alternate sectionGoals may be documented in an alternate section FOR RECORDS PERTAINING TO PATIENTS WHO ARE OR HAVE BEEN ENROLLED IN A CHEMICAL DEPENDENCY/SUBSTANCEABUSE PROGRAM, SOME INFORMATION MAY BE OMITTED. This clinical summary was aggregated from multiple sources. Caution should be exercised in using it in the provision of clinical care. This summary normalizes information from multiple sources, and as a consequence, information in this document may materially change the coding, format and clinical context of patient data. In addition, data may be omitted in some cases. CLINICAL DECISIONS SHOULD BE BASED ON THE PRIMARY CLINICAL RECORDS. [employer] [facility] provides no warranty or guarantee of the accuracy or completeness of information in this document.
[2025-02-07 02:50] LABS: AST(SGOT) 13 U/L (<=31); Alanine Aminotransfer ALT/SGPT 9 U/L (<=34); Albumin, Serum 4.2 g/dL (3.5-5.0); Alkaline Phosphatase 72 U/L (35-104); Anion Gap 11 (5-15); BUN 14 mg/dL (4-19); BUN/Creat Ratio 25.3 RATIO (10-20); Calcium,Total 9.8 mg/dL (7.6-11.0); Carbon Dioxide 22.9 mmol/L (21.0-32.0); Chloride 104 mmol/L (98-108); Estimated Creatinine Clearance 157.11 ml/min (50-250); Globulin 2.9 g/dL (2.2-4.2); Glucose 130 mg/dL (70-99); Lipase 37 U/L (13-75); Potassium 3.8 mmol/L (3.3-5.1)
[2025-02-07 03:43] VITALS: BP 118/73; PULSE 94; RESP 16; TEMP 36.6; O2SAT 100
== END 2025-02-07 03:45 | disposition home or self-care (01) ==
PROVIDERS: Emergency Provider Emergency Medicine; PCP Student in an Organized Health Care Education/Training Program; Visit Provider Emergency Medicine
DX: R10.9 Unspecified abdominal pain (principal); G93.5 Compression of brain; Q05.9 Spina bifida, unspecified; Z79.84 Long term (current) use of oral hypoglycemic drugs
CPT/HCPCS: 74177; 80053; 83690; 84703; 85025; 96361; 96374; 96375; 99283; Q9967; A4216; J2405